=== PATIENT | female | born 1960 | race Caucasian/White ===

== ENCOUNTER 2017-10-05 03:47 | Emergency (ER) | payer MEDICAID, SELFPAY ==
[2017-10-05 03:48] VITALS: BP 181/89; PULSE 96; RESP 20; TEMP 36.7; O2SAT 98; BMI 97.6
--- NOTE | 2017-10-05 04:06 | XR_ITS ---
XR chest 2V HISTORY: Worsening chest pain ITS.REASON: chest pain ORDERING PHYSICIAN: Elroy Phan MD PATIENT AGE: 57 years COMPARISON: 04/16/2017 FINDINGS: The heart size is normal. Increased markings noted in the perihilar region bilaterally and left lower lobe and right upper lobe and may be due to bronchopneumonia. No obvious effusion. IMPRESSION: Bronchopneumonia
--- NOTE | 2017-10-05 04:13 | PC.NURSE ---
pt. to radiology
[2017-10-05 04:22] LABS: Basophils % 0.3 % (0.1-2.0); Eosinophils # 0.3 K/mm3 (0.0-0.4); Eosinophils % 2.4 % (0.1-12.0); Hematocrit 41.8 % (37.0-47.0); Hemoglobin 12.9 g/dL (12.2-16.2); Lymphocytes # 5.6 K/mm3 (0.7-4.5); Lymphocytes % 42.2 K/mm3 (10-50); Mean Corpuscular HGB Conc 30.9 g/dL (31.8-35.4); Mean Corpuscular Hemoglobin 27.6 pg (27.0-31.2); Mean Corpuscular Volume 89.1 fl (81-99); Mean Platelet Volume 7.4 fl (7.4-10.4); Monocytes # 0.6 K/mm3 (0.1-1.0); Monocytes % 4.5 % (1.7-9.3); Neutrophils # 6.8 K/mm3 (1.8-7.8); Neutrophils % 50.6 % (37.0-80.0); Platelet Count 374 K/mm3 (142-424); Red Blood Count 4.69 M/mm3 (4.20-5.40); Red Cell Distribution Width 13.1 % (11.5-17.5); White Blood Count 13.4 K/mm3 (4.8-10.8)
--- NOTE | 2017-10-05 04:22 | PC.NURSE ---
PT RETURNED FROM RADIOLOGY
--- NOTE | 2017-10-05 04:33 | HMH.EDSOB ---
ED Disposition Clinical Impression: CAP (community acquired pneumonia) Qualifiers: Laterality: left Lung location: unspecified part of lung Qualified Code(s): J18.9 - Pneumonia, unspecified organism Disposition: Home, Self-Care Condition on Discharge: Good Instructions: Pneumonia-Adult Additional Instructions: use meds and call pcp in am Prescriptions: Azithromycin [Zithromax 250mg tab] 250 mg PO DIRECTED #6 tab - Critical Care Critical Care Time: No Attestation: On 10/05/17, the high probability of a clinically significant, sudden or life threatening deterioration of the following system(s) required my full and direct attention, intervention and personal management. The time I documented below is in addition to time spent performing reported procedures but includes the following listed in this critical care notation. Medical Decision Making - Medical Records Medical records reviewed: Yes: I reviewed the patient's medical records. Vital Signs: 10/05/17 03:48 10/05/17 04:38 10/05/17 07:30 Temperature 98.1 F Temperature Source Oral Pulse Rate [Right Radial] 96 H 82 87 Respiratory Rate 20 18 22 Blood Pressure [Right Arm] 181/89 168/74 179/91 Blood Pressure Mean [Right Arm] 119 105 120 Blood Pressure Source [Right Arm] Automatic Cuff Blood Pressure Position [Right Arm] Sitting Sitting Sitting 02 Sat by Pulse Oximetry 98 94 L 96 Oxygen Delivery Method Room Air Room Air Room Air - Lab Data Lab results reviewed: Yes: I reviewed the patient's lab results. Lab Results 10/05/17 04:10: WBC 13.4 H, RBC 4.69, Hgb 12.9, Hct 41.8, MCV 89.1, MCH 27.6, MCHC 30.9 L, RDW 13.1, Plt Count 374, MPV 7.4, Neut % (Auto) 50.6, Lymph % (Auto) 42.2, [place] % (Auto) 4.5, Eos % (Auto) 2.4, Baso % (Auto) 0.3, Neut # (Auto) 6.8, Lymph # (Auto) 5.6 H, [place] # (Auto) 0.6, Eos # (Auto) 0.3, Baso # (Auto) 0.0 10/05/17 04:10: Sodium 135 L, Potassium 3.7, Chloride 102, Carbon Dioxide 30, Anion Gap 6.7, BUN 12, Creatinine 0.57, Estimated Creat Clear 88, Estimated GFR 109, Est GFR ( Amer) 131, Glucose 226 H, Calcium 8.4 L, Total Bilirubin 0.2, AST 14 L, ALT 27, Alkaline Phosphatase 70, Total Creatine Kinase 90, CK-MB (CK-2) 0.8, CK-MB (CK-2) Rel Index 0.9, Troponin I < 0.02, Total Protein 6.9, Albumin 2.5 L, Globulin 4.4 H, Albumin/Globulin Ratio 0.6 L 10/05/17 04:10: Lactic Acid 1.1 10/05/17 04:10: D-Dimer 3300 H* Result diagrams: 10/05/17 04:10 10/05/17 04:10 Orders (Tests/Meds): ED MEDICATIONS Discontinued Medications Generic Name Dose Route Start Last Admin Trade Name Saeedq PRN Reason Stop Dose Admin Aspirin 162 mg 10/05/17 09:00 Aspirin 81mg Enteric Coated Tablet PO 11/04/17 08:59 DAILY FUENTES Aspirin 162 mg 10/05/17 04:18 10/05/17 04:21 Aspirin 81mg Chewable Tablet PO 10/05/17 04:19 162 mg ONCE ONE Administration Furosemide 20 mg 10/05/17 07:11 10/05/17 07:16 Lasix 40mg/4ml Vial IV 10/05/17 07:12 20 mg ONCE ONE Administration Azithromycin 500 mg/ Sodium 250 mls @ 250 mls/hr 10/05/17 07:39 10/05/17 07:54 Chloride IV 10/05/17 07:40 250 mls/hr ONCE ONE Administration Protocol Ceftriaxone Sodium 1 gm/ 50 mls @ 100 mls/hr 10/05/17 07:42 10/05/17 08:15 Sodium Chloride IV 10/05/17 08:11 100 mls/hr ONCE ONE Administration Iopamidol 75 ml 10/05/17 06:36 10/05/17 07:41 [id number]; 75ml Vial IV 10/05/17 06:37 75 ml ONCE ONE Administration Ketorolac Tromethamine 30 mg 10/05/17 07:19 10/05/17 07:25 Toradol 30mg/Ml Vial IV 10/05/17 07:20 30 mg ONCE ONE Administration Methylprednisolone Sodium Succinate 125 mg 10/05/17 07:42 10/05/17 07:54 Solu-Medrol 125mg/2ml Vial IV 10/05/17 07:43 125 mg ONCE ONE Administration Sodium Chloride 10 ml 10/05/17 06:36 10/05/17 07:41 Rad-Saline Flush 10ml Syringe IV 10/05/17 06:37 10 ml ONCE ONE Administration Sodium Chloride 20 ml 10/05/17 06:36 10/05/17 07:40 Ra
--- NOTE | 2017-10-05 04:36 | ED_ITS ---
ED Disposition Clinical Impression: CAP (community acquired pneumonia) Qualifiers: Laterality: left Lung location: unspecified part of lung Qualified Code(s): J18.9 - Pneumonia, unspecified organism Disposition: Home, Self-Care Condition on Discharge: Good Instructions: Pneumonia-Adult Additional Instructions: use meds and call pcp in am Prescriptions: Azithromycin [Zithromax 250mg tab] 250 mg PO DIRECTED #6 tab - Critical Care Critical Care Time: No Attestation: On 10/05/17, the high probability of a clinically significant, sudden or life threatening deterioration of the following system(s) required my full and direct attention, intervention and personal management. The time I documented below is in addition to time spent performing reported procedures but includes the following listed in this critical care notation. Medical Decision Making - Medical Records Medical records reviewed: Yes: I reviewed the patient's medical records. Vital Signs: 10/05/17 03:48 10/05/17 04:38 10/05/17 07:30 Temperature 98.1 F Temperature Source Oral Pulse Rate [Right Radial] 96 H 82 87 Respiratory Rate 20 18 22 Blood Pressure [Right Arm] 181/89 168/74 179/91 Blood Pressure Mean [Right Arm] 119 105 120 Blood Pressure Source [Right Arm] Automatic Cuff Blood Pressure Position [Right Arm] Sitting Sitting Sitting 02 Sat by Pulse Oximetry 98 94 L 96 Oxygen Delivery Method Room Air Room Air Room Air - Lab Data Lab results reviewed: Yes: I reviewed the patient's lab results. Lab Results 10/05/17 04:10: WBC 13.4 H, RBC 4.69, Hgb 12.9, Hct 41.8, MCV 89.1, MCH 27.6, MCHC 30.9 L, RDW 13.1, Plt Count 374, MPV 7.4, Neut % (Auto) 50.6, Lymph % (Auto ) 42.2, [place] % (Auto) 4.5, Eos % (Auto) 2.4, Baso % (Auto) 0.3, Neut # (Auto) 6.8, Lymph # (Auto) 5.6 H, [place] # (Auto) 0.6, Eos # (Auto) 0.3, Baso # (Auto) 0.0 10/05/17 04:10: Sodium 135 L, Potassium 3.7, Chloride 102, Carbon Dioxide 30, Anion Gap 6.7, BUN 12, Creatinine 0.57, Estimated Creat Clear 88, Estimated GFR 109, Est GFR ( Amer) 131, Glucose 226 H, Calcium 8.4 L, Total Bilirubin 0.2, AST 14 L, ALT 27, Alkaline Phosphatase 70, Total Creatine Kinase 90, CK-MB (CK-2) 0.8, CK-MB (CK-2) Rel Index 0.9, Troponin I < 0.02, Total Protein 6.9, Albumin 2.5 L, Globulin 4.4 H, Albumin/Globulin Ratio 0.6 L 10/05/17 04:10: Lactic Acid 1.1 10/05/17 04:10: D-Dimer 3300 H* Result diagrams: 10/05/17 04:10 10/05/17 04:10 Orders (Tests/Meds): ED MEDICATIONS Discontinued Medications Generic Name Dose Route Start Last Admin Trade Name Saeedq PRN Reason Stop Dose Admin Aspirin 162 mg 10/05/17 09:00 Aspirin 81mg Enteric Coated Tablet PO 11/04/17 08:59 DAILY FUENTES Aspirin 162 mg 10/05/17 04:18 10/05/17 04:21 Aspirin 81mg Chewable Tablet PO 10/05/17 04:19 162 mg ONCE ONE Administration Furosemide 20 mg 10/05/17 07:11 10/05/17 07:16 Lasix 40mg/4ml Vial IV 10/05/17 07:12 20 mg ONCE ONE Administration Azithromycin 500 mg/ Sodium 250 mls @ 250 mls/hr 10/05/17 07:39 10/05/17 07: 54 Chloride IV 10/05/17 07:40 250 mls/hr ONCE ONE Administration Protocol Ceftriaxone Sodium 1 gm/ 50 mls @ 100 mls/hr 10/05/17 07:42 10/05/17 08:15 Sodium Chloride IV 10/05/17 08:11 100 mls/hr ONCE ONE Administration Iopamidol 75 ml
[2017-10-05 04:38] VITALS: BP 168/74; PULSE 82; RESP 18; O2SAT 94
[2017-10-05 04:38] LABS: Lactic Acid 1.1 mmol/L (0.4-2.0)
[2017-10-05 04:55] LABS: Alanine Aminotransferase 27 U/L (12-78); Albumin Level 2.5 gm/dL (3.4-5.0); Albumin/Globulin Ratio 0.6 (1.1-1.8); Alkaline Phosphatase 70 U/L (46-116); Anion Gap 6.7 mEq/L (5-15); Aspartate Amino Transferase 14 U/L (15-37); Bilirubin,Total 0.2 mg/dL (0.2-1.0); Blood Urea Nitrogen 12 mg/dL (7-18); CKMB Relative Index 0.9 U/L (0-4.0); Calcium 8.4 mg/dL (8.5-10.1); Carbon Dioxide 30 mmol/L (21.0-32.0); Chloride 102 mmol/L (98-107); Creatine Kinase 90 U/L (26-192); Creatine Kinase MB 0.8 mg/ml (0.0-3.6); Creatinine Clearance Estimated 88 mL/min (0-300); Creatinine,Serum 0.57 mg/dL (0.55-1.02); Estimated Glomerular Filt Rate 109 ml/min (>60); GFR (African American) 131 ML/MIN (>60); Globulin 4.4 gm/dl (1.3-3.2); Glucose 226 mg/dL (74-106); Potassium 3.7 mmoL/L (3.5-5.1); Sodium 135 mmol/L (136-145); Total Protein,Serum 6.9 gm/dL (6.4-8.2); Troponin I < 0.02 ng/ml (0.00-0.06)
[2017-10-05 04:58] LABS: D-Dimer 3300 (0-400)
--- NOTE | 2017-10-05 05:15 | CT_ITS ---
CT angio chest CTA chest Ordering Physician: Elroy Phan MD Patient Age: 57 years: Female HISTORY: ITS.REASON: CHEST PAIN, SOB, ELEVATED D-DIMER TECHNIQUE: Helical CT scanning performed the chest following bolus administration 70 cc [id number] followed x 40 mL normal saline. Thickened axial images as well as slab mippSagittal and coronal performed on independent workstation (CTA CPT or... 77 CPT) COMPARISON :Previous CTA chest 05/04/2016. Previous CT chest October 2015 also CTA chest April 2015 FINDINGS . No good evidence of pulmonary embolism. Fairly good enhancement and visualization of pulmonary arteries. Aorta appears normal in caliber with no acute findings scant foci calcification. No right ventricular strain. The heart appears upper normal in size no pericardial effusion Lungs: Bilateral diffuse infiltrates with Peribronchial thickening throughout. The Patchy bilateral infiltrates most evident towards lung bases left greater than right. Bilateral interstitial thickening associated which I tend to suspect reflects pneumonitis, although VRC of favored of mild pulmonary edema. Clinical correlation required.. Mediastinum subtle small reactive nodes slightly more evident hilar regions today. Stable slightly more evident mild/moderate reactive nodes throughout the mediastinum.... Stable mild /moderate nodes axillary region Small to moderate mediastinal lymph nodes again observed and appear fairly stable. Stable elongated lymph node AP window seen along the superior margin pulmonary artery level and just lateral to the aortic arch. Scattered small right paratracheal nodes with largest 13 x 11 mm. This may be incrementally larger likely reflect mild reactive lymph node features. A few very small retrocrural nodes similar to previous study..upper normal thickness esophagus. Lluvia. Hilar regions appears slightly more generous which may reflect some question reactive nodes along with some inflammatory changes. Scattered small- moderate-sized nodes in the axillary regions similar to previous studies Uppermost abdomen. Adrenals normal. Thyroid gland is upper normal size. No supraclavicular adenopathy. . No pleural effusions evident no chest wall abnormalities. T-spine intact. . . IMPRESSION: ----- 1. No evidence of pulmonary embolism. 2. Diffuse Bilateral infiltrates. Most evident atelectasis & infiltrate towards LLL.. Associated peribronchial thickening throughout. Mild diffuse Interstitial thickening I favor reflects diffuse pneumonitis, although could reflect mild pulmonary edema as suggested by VRC;. May benefit correlation with BNP. Heart normal size. No pleural effusion No pathologic adenopathy. Subtle incremental accentuation of hilar and mediastinal nodes, likely reflecting reactive nodes . 3. Recommend follow-up 2 view chest to serve as baseline for follow-up.
[2017-10-05 07:30] VITALS: BP 179/91; PULSE 87; RESP 22; O2SAT 96
[2017-10-05 09:12] VITALS: BP 136/78; PULSE 70; RESP 20; O2SAT 98
== END 2017-10-05 09:14 | disposition home or self-care (01) ==
PROVIDERS: Emergency Provider Emergency Medicine; Family Provider Internal Medicine Adolescent Medicine
DX: J18.9 Pneumonia, unspecified organism (principal); E11.9 Type 2 diabetes mellitus without complications; Z79.84 Long term (current) use of oral hypoglycemic drugs; Z87.891 Personal history of nicotine dependence; E78.5 Hyperlipidemia, unspecified; I10 Essential (primary) hypertension; Z88.0 Allergy status to penicillin; Z88.2 Allergy status to sulfonamides
CPT/HCPCS: 71046; 71275; 80053; 82550; 82553; 83605; 84484; 85025; 85378; 87040; 93005; 93041; 96365; 96366; 96375; 99284; J0456; Q9967

== ENCOUNTER → 2018-02-10 08:50 | Outpatient (CLI) | payer MEDICAID, SELFPAY ==
--- NOTE | 2018-02-10 08:57 | FL_ITS ---
EXAM: Barium swallow/esophagram. INDICATION: ITS.REASON: DYSPNEA,HICCUPS ORDERING PHYSICIAN: Eben Liu MD PATIENT AGE: 57 years COMPARISON: None TECHNIQUE: In the upright position the patient was observed to swallow barium in both the AP and lateral view. The cervical esophagus was examined under fluoroscopy with images obtained. The patient was then placed prone in the right anterior oblique position and was observed to swallow barium with Valsalva technique . FLUOROSCOPY TIME: 1 minute and 4 seconds FINDINGS: There was no evidence of aspiration. There was normal peristalsis. No filling defects or mucosal abnormalities. No masses or strictures. There was a small sliding hiatal hernia with Valsalva IMPRESSION: Small sliding hiatal hernia with Valsalva otherwise negative
== END ==
PROVIDERS: Family Provider Internal Medicine Adolescent Medicine; PCP Internal Medicine Adolescent Medicine; Visit Provider Internal Medicine Adolescent Medicine
DX: R06.00 Dyspnea, unspecified (principal); R06.6 Hiccough
CPT/HCPCS: 74220; 74247

== ENCOUNTER → 2018-02-12 09:28 | Outpatient (CLI) | payer MEDICAID, SELFPAY ==
--- NOTE | 2018-02-12 09:50 | XR_ITS ---
Repeat View XR HISTORY: Dyspnea, hiccups ORDERING PHYSICIAN: Eben Liu MD PATIENT AGE: 57 years Comparison: None FINDINGS: The esophagus, stomach, and duodenum have an unremarkable appearance. Small sliding hiatal hernia with Valsalva. No ulcer or mass evident. No mucosal abnormalities apparent. There is normal peristalsis. The duodenal C-loop is nondisplaced. FLUOROSCOPY TIME : 1 minute and 18 seconds. IMPRESSION: Small sliding hiatal hernia with Valsalva otherwise negative upper GI
== END ==
PROVIDERS: Family Provider Internal Medicine Adolescent Medicine; PCP Internal Medicine Adolescent Medicine; Visit Provider Internal Medicine Adolescent Medicine
DX: R13.10 Dysphagia, unspecified (principal)

== ENCOUNTER → 2018-03-10 13:03 | Outpatient (POV) | payer MEDICAID, SELFPAY | PROVIDERS: Family Provider Internal Medicine Adolescent Medicine; PCP Internal Medicine Adolescent Medicine; Visit Provider Internal Medicine | DX: Z00.00 Encounter for general adult medical examination without abnormal findings (principal) ==

== ENCOUNTER → 2018-05-06 12:17 | Outpatient (CLI) | payer MEDICAID, SELFPAY ==
--- NOTE | 2018-05-06 12:26 | CT_ITS ---
CT chest wo con HISTORY: Shortness of air, interstitial lung disease ITS.REASON: INTERSTITIAL LUNG DISEASE ORDERING PHYSICIAN: Kwame Martini MD PATIENT AGE: 57 years COMPARISON: None Technique: Axial images obtained with sagittal and coronal reformats. All CT scans at the facility use one or more dose reduction, viz: automated exposure control, ma/kV adjustment per patient size (including targeted exams where dose is matched to indication, i.e. head), or iterative reconstruction technique. FINDINGS: Scattered small nodes are present in the axilla. A stable aortopulmonic lymph node is present measuring 1.9 x 0.8 cm. No mediastinal or hilar mass or adenopathy is more heart size. There are several noncalcified nodules in the upper lobes not significantly changed 5 mm or less. There is mild diffuse prominence of the interstitium with scattered groundglass opacification consistent with interstitial lung disease. No new nodules are apparent. The findings appear stable compared to the previous exam. No effusions. A 6 mm fissural nodule is present in the right minor fissure. No central obstructing lesions are evident. No acute bony anomalies. Upper abdominal images show no acute finding. IMPRESSION: 1. Overall stable appearance in the mild diffuse prominence of the interstitium with patchy groundglass densities suggesting interstitial pneumonitis/interstitial lung disease etiology indeterminate 2. Small nodular opacities are present in the upper lobes which appear stable. Continued follow-up recommended
[2018-05-06 13:40] VITALS: PULSE 87; PULSE 90
[2018-05-06 14:00] VITALS: BP 145/90; BP 160/100; PULSE 119; PULSE 87; RESP 16; RESP 23; O2SAT 90; O2SAT 97
== END ==
PROVIDERS: Family Provider Internal Medicine Adolescent Medicine; PCP Internal Medicine Adolescent Medicine; Visit Provider Internal Medicine
DX: J84.9 Interstitial pulmonary disease, unspecified (principal)
CPT/HCPCS: 71250; 94060; 94618; 94640; 94726; 94729

== ENCOUNTER → 2018-06-02 08:29 | Outpatient (POV) | payer MEDICAID, SELFPAY | PROVIDERS: Family Provider Internal Medicine Adolescent Medicine; PCP Internal Medicine Adolescent Medicine; Visit Provider Internal Medicine | DX: Z00.00 Encounter for general adult medical examination without abnormal findings (principal) ==

== ENCOUNTER → 2018-06-04 09:59 | Outpatient (CLI) | payer MEDICAID, SELFPAY ==
--- NOTE | 2018-06-04 10:05 | CA_ITS ---
PROCEDURE: 2-D M-mode and color Doppler study INDICATIONS FOR THE TEST: Chest painx COPDx Heart Murmurx Tobacco Smoking Palpitationsx Fatigue Syncopex Edema HypertensionxDiabetes Mellitusx Rheumatic Fever SOBxDOE Obesity Hyperlipidemia Family History HD Additional History Rheumatoid Arthritis Comments: Mild , calcified aortic valve PATIENT INFORMATION HEIGHT: 5'3'' WEIGHT: 240 GENDER: Female B/P: 148/71 2-D/M-MODE INTERPRETATION: 2-D MEASUREMENTS OBSERVED VALUES IN CMS Right Ventricular Dimension (RVDd) 2.4 Interventricular Septum (Thickness)(IVsd) 0.9 Left Ventricular Internal Dimensions(LVIDd) 4.5 Left Ventricular Posterior Wall (Thickness)(LVPWd) 1.1 Aortic Root 2.3 Aortic Cusp Separation 1.8 Left Atrial Dimensions (LAD) 4.1 2D 1. Left atrium is mildly enlarged, left ventricle is normal size, mild concentric left ventricular hypertrophy, visually estimated ejection fraction 55% with no regional wall motion abnormality. 2. The right atrium and right ventricle are normal size and contractility. 3. The aortic valve is thickened and calcified leaflet continue to display mobility. 4. The mitral and tricuspid valve are grossly normal. 5. The pulmonic valve is poorly visualized. 6. No significant pericardial effusion noted. DOPPLER INTERROGATION: 1. The mean gradient across aortic valve is 9 mmHg this represents mild aortic stenosis, there is no aortic insufficiency. 2. The mitral inflow velocity within normal range, there is no mitral stenosis, there is mild mitral regurgitation, grade 1 diastolic dysfunction seen with tissue Doppler evidence of raised left atrial pressure. 3. Mild tricuspid regurgitation, tricuspid regurgitation jet velocity is insufficient for calculation of the right ventricular systolic pressure. CONCLUSION: 1. Mildly enlarged left atrium, normal left ventricular size, mild concentric left ventricular hypertrophy, visually estimated ejection fraction 55% with no regional wall motion abnormality, grade 1 diastolic dysfunction seen with tissue Doppler evidence of raised left atrial pressure. 2. Thickened and calcified aortic valve with mean gradient across valve of 9 mmHg represents mild aortic stenosis, there is no aortic insufficiency. 3. Mild mitral and tricuspid regurgitation 4. No significant pericardial effusion noted.
== END ==
PROVIDERS: PCP Internal Medicine Adolescent Medicine; Visit Provider Internal Medicine
DX: M06.9 Rheumatoid arthritis, unspecified (principal); J84.9 Interstitial pulmonary disease, unspecified; I35.1 Nonrheumatic aortic (valve) insufficiency
CPT/HCPCS: 93306

== ENCOUNTER → 2018-07-16 14:25 | Outpatient (CLI) | payer MEDICAID, SELFPAY ==
[2018-07-16 14:59] LABS: Basophils # 0.1 K/mm3 (0-0.2); Basophils % 0.4 % (0.1-2.0); Eosinophils # 0.3 K/mm3 (0.0-0.4); Eosinophils % 2.1 % (0.1-12.0); Hematocrit 39.3 % (37.0-47.0); Hemoglobin 12.4 g/dL (12.2-16.2); Lymphocytes # 5.9 K/mm3 (0.7-4.5); Lymphocytes % 41.5 % (10-50); Mean Corpuscular HGB Conc 31.5 g/dL (31.8-35.4); Mean Corpuscular Hemoglobin 28.3 pg (27.0-31.2); Mean Corpuscular Volume 89.8 fl (81-99); Mean Platelet Volume 7.2 fl (7.4-10.4); Monocytes # 0.6 K/mm3 (0.1-1.0); Monocytes % 4.5 % (1.7-9.3); Neutrophils # 7.3 K/mm3 (1.8-7.8); Neutrophils % 51.5 % (37.0-80.0); Platelet Count 368 K/mm3 (142-424); Red Blood Count 4.38 M/mm3 (4.20-5.40); Red Cell Distribution Width 13.2 % (11.5-17.5); White Blood Count 14.2 K/mm3 (4.8-10.8)
[2018-07-16 16:17] LABS: Alanine Aminotransferase 22 U/L (12-78); Albumin Level 2.7 gm/dL (3.4-5.0); Albumin/Globulin Ratio 0.7 (1.1-1.8); Alkaline Phosphatase 86 U/L (46-116); Anion Gap 13.7 mEq/L (5-15); Aspartate Amino Transferase 15 U/L (15-37); Bilirubin,Total 0.3 mg/dL (0.2-1.0); Blood Urea Nitrogen 17 mg/dL (7-18); Calcium 8.8 mg/dL (8.5-10.1); Carbon Dioxide 26 mmol/L (21.0-32.0); Chloride 104 mmol/L (98-107); Estimated Glomerular Filt Rate 102 ml/min (>60); GFR (African American) 124 ML/MIN (>60); Glucose 123 mg/dL (74-106); Potassium 3.7 mmoL/L (3.5-5.1); Sodium 140 mmol/L (136-145); Total Protein,Serum 6.7 gm/dL (6.4-8.2)
== END ==
PROVIDERS: Visit Provider Internal Medicine
DX: Z51.81 Encounter for therapeutic drug level monitoring (principal)
CPT/HCPCS: 36415; 80053; 85025

== ENCOUNTER → 2018-08-04 10:02 | Outpatient (POV) | payer MEDICAID, SELFPAY | PROVIDERS: Visit Provider Internal Medicine | DX: Z00.00 Encounter for general adult medical examination without abnormal findings (principal) ==

== ENCOUNTER → 2018-08-19 16:37 | Outpatient (CLI) | payer MEDICAID, SELFPAY ==
[2018-08-19 17:15] LABS: Basophils % 0.3 % (0.1-2.0); Eosinophils # 0.2 K/mm3 (0.0-0.4); Eosinophils % 1.6 % (0.1-12.0); Hematocrit 40.7 % (37.0-47.0); Hemoglobin 12.6 g/dL (12.2-16.2); Lymphocytes # 5.3 K/mm3 (0.7-4.5); Lymphocytes % 41.3 % (10-50); Mean Corpuscular HGB Conc 30.9 g/dL (31.8-35.4); Mean Corpuscular Hemoglobin 27.5 pg (27.0-31.2); Mean Platelet Volume 7.6 fl (7.4-10.4); Monocytes # 0.5 K/mm3 (0.1-1.0); Monocytes % 3.5 % (1.7-9.3); Neutrophils # 6.9 K/mm3 (1.8-7.8); Neutrophils % 53.3 % (37.0-80.0); Platelet Count 382 K/mm3 (142-424); Red Blood Count 4.57 M/mm3 (4.20-5.40); Red Cell Distribution Width 13.5 % (11.5-17.5); White Blood Count 12.9 K/mm3 (4.8-10.8)
[2018-08-19 19:25] LABS: Alanine Aminotransferase 21 U/L (12-78); Albumin Level 2.6 gm/dL (3.4-5.0); Albumin/Globulin Ratio 0.6 (1.1-1.8); Alkaline Phosphatase 92 U/L (46-116); Anion Gap 11.2 mEq/L (5-15); Aspartate Amino Transferase 9 U/L (15-37); Bilirubin,Total 0.2 mg/dL (0.2-1.0); Blood Urea Nitrogen 18 mg/dL (7-18); Calcium 8.7 mg/dL (8.5-10.1); Carbon Dioxide 28 mmol/L (21.0-32.0); Chloride 105 mmol/L (98-107); Creatinine,Serum 0.75 mg/dL (0.55-1.02); Estimated Glomerular Filt Rate 79 ml/min (>60); GFR (African American) 96 ML/MIN (>60); Globulin 4.1 gm/dl (1.3-3.2); Glucose 136 mg/dL (74-106); Potassium 4.2 mmoL/L (3.5-5.1); Sodium 140 mmol/L (136-145); Total Protein,Serum 6.7 gm/dL (6.4-8.2)
== END ==
PROVIDERS: Visit Provider Internal Medicine Adolescent Medicine
DX: M05.79 Rheumatoid arthritis with rheumatoid factor of multiple sites without organ or systems involvement (principal); S06.0X1D Concussion with loss of consciousness of 30 minutes or less, subsequent encounter
CPT/HCPCS: 36415; 80053; 85025

== ENCOUNTER → 2019-04-20 09:57 | Outpatient (POV) | payer MEDICAID, SELFPAY | PROVIDERS: Visit Provider Internal Medicine | DX: Z00.00 Encounter for general adult medical examination without abnormal findings (principal) ==

== ENCOUNTER → 2019-08-09 13:25 | Outpatient (CLI) | payer OTHER, SELFPAY ==
--- NOTE | 2019-08-09 13:37 | XR_ITS ---
PROCEDURE: XR CHEST 2V CLINICAL HISTORY: LUNG DISEASE Interstitial lung disease, shortness of air, possible pneumonia COMPARISON: CXR2V XR chest 2V from 01/26/2018 [id number] XR ribs LT min 3V w CXR1V from 03/07/[address] chest wo con from 05/06/2018 CXR2 XR chest AP from 08/16/2018 Chest from 03/18/2019 FINDINGS: Mild cardiomegaly without failure. Chronic bilateral opacification once again noted consistent with patient's known interstitial lung disease. No new areas of consolidation are evident. Degenerative changes of the shoulders IMPRESSION: Cardiomegaly with chronic changes which appears similar when compared to 03/18/2019. Superimposed pneumonia could easily be obscured from the chronic changes. CT may provide further evaluation if clinically warranted Dictated by: Ron Edmondson MD 08/09/2019 17:34 Electronically signed by Ron Edmondson MD in [place] 08/09/2019 17:34
== END ==
PROVIDERS: PCP Internal Medicine Adolescent Medicine; Visit Provider Internal Medicine Adolescent Medicine
DX: J84.9 Interstitial pulmonary disease, unspecified (principal)
CPT/HCPCS: 71046

== ENCOUNTER 2019-10-29 10:55 | Inpatient (IN) ==
--- NOTE | 2019-10-29 11:39 | Pharmacy Consult Notes ---
[facility] VTE Monitoring - Patient Demographics Admission date: 10/29/19 Report Date: 10/29/19 Time: 11:39 Allergies/Adverse Reactions: Patient Allergies leflunomide [From ARAVA] Allergy (Severe, Verified 05/29/18 13:24) I-RASH Penicillins [PENICILLINS] Allergy (Intermediate, Verified 05/29/18 13:24) Sulfa (Sulfonamide Antibiotics) [SULFA (SULFONAMIDE ANTIBIOTICS)] Allergy (Unknown, Verified 05/29/18 13:24) Height: 1.57 m Weight: 105.8 kg - Prophylaxis VTE Prophylaxis Ordered?: Yes Types of VTE Prophylaxis: TEDS Knee High Location of Applied Device: Bilateral Lower Extremeties
[2019-10-29 12:51] LABS: Basophils # 0.1 K/mm3 (0-0.2); Basophils % 0.4 % (0.1-2.0); Eosinophils # 0.2 K/mm3 (0.0-0.4); Eosinophils % 0.9 % (0.1-12.0); Hematocrit 36.1 % (37.0-47.0); Hemoglobin 10.8 g/dL (12.2-16.2); Lymphocytes # 4.2 K/mm3 (0.7-4.5); Lymphocytes % 22.3 % (10-50); Mean Corpuscular HGB Conc 29.9 g/dL (31.8-35.4); Mean Corpuscular Volume 88.4 fl (81-99); Mean Platelet Volume 7.8 fl (7.4-10.4); Neutrophils # 13.6 K/mm3 (1.8-7.8); Neutrophils % 71.4 % (37.0-80.0); Platelet Count 452 K/mm3 (142-424); Red Blood Count 4.09 M/mm3 (4.20-5.40); Red Cell Distribution Width 14.6 % (11.5-17.5)
[2019-10-29 12:55] LABS: Albumin Level 3.4 g/dl (3.5-5.0); Albumin/Globulin Ratio 0.9 (1.1-1.8); Anion Gap 9.1 mEq/L (5-15); Bilirubin,Total 0.4 mg/dl (0.2-1.3); Globulin 3.9 g/dL (1.3-3.2); Total Protein,Serum 7.3 g/dl (6.3-8.2)
[2019-10-29 15:35] LABS: Eosinophils % 1 % (0-3); Hypochromasia 1+; Lymphocytes % 28 % (10-50); Monocytes % 7 % (2-9); Neutrophils % 64 % (42-76); Stomatocytes 1+; Total Cells Counted 100
--- NOTE | 2019-10-30 06:01 | History & Physical Report ---
*Admission Date: 10/29/19 *Chief complaint: Cough and SOA *History of present illness: 59 year old Female with history of intersitial lung disease, RA and DM - came to office with SOA and low sats at PT department today... came to office - was recommended to go to ER, but chose to come to office. Found to have cough, low sats, and crackles on lungs. Admitted to [facility] for further diagnosis. [facility] History I have reviewed the patient's past medical history: Yes Medical History: Reports:: Asthma, Diabetes Mellitus Type 2, Hypertension Denies:: Cancer, Diabetes Mellitus Type 1, MRSA *Have you ever received a pneumonia vaccine?: Yes *Have you received a flu vaccine this season?: Yes Other Medical History: Reports: Arthritis, Other (RA) Other Surgeries: Yes: Appendectomy, Hysterectomy-Total, Tubal Ligation Amputation: No Fractures: No - *Social History Educational Level: Completed High School Smoking Status: Never smoker Tobacco Type: cigarettes Alcohol Intake: never *Occupational Status:: retired Housing: house Household Members: spouse *Travel in the last 8 weeks: None Family Hx:: Cancer, Hypertension, Kidney Disease Review of Systems - Review of Systems Review of systems:: pertinent systems reviewed and negative unless documented below - *Cardiovascular Reports shortness of breath with activity, Reports leg swelling - *Respiratory Reports change in phlegm color, Reports shortness of breath with activity, Reports excessive phlegm production Meds Home Medications Medication Instructions Recorded Confirmed Type Glimepiride [Amaryl] 2 mg PO BID 10/05/17 10/29/19 History Metformin HCl [Glucophage 500mg 1,000 mg PO BID 10/05/17 10/29/19 History Tablet] Metoprolol Tartrate [Lopressor 25 mg PO BID 10/05/17 10/29/19 History 25mg tablet] Ibuprofen [Ibu] 800 mg PO TID PRN 01/26/18 10/29/19 History Albuterol Sulfate [Albuterol HFA 2 puffs IH Q6HP PRN #1 inh 03/18/19 10/29/19 Rx Inhaler] Inhaler, Assist Devices [Space 1 each MC Q6H PRN #1 spacer 03/18/19 10/29/19 Rx Chamber Plus] predniSONE [Deltasone 10mg tablet] 10 mg PO NEEDED PRN 03/18/19 10/29/19 History sulfaSALAzine [Sulfasalazine Dr] 3 tab PO BID 03/18/19 10/29/19 History Promethazine/Dextromethorphan 5 ml PO Q6HP PRN #240 syrup 09/07/19 10/29/19 Rx [Promethazine-Dm Syrup] Aspirin [Aspir 81] 81 mg PO DAILY 10/29/19 10/29/19 History Omeprazole [Omeprazole 20mg 20 mg PO DAILY 10/29/19 10/29/19 History Capsule] Tofacitinib Citrate [Xeljanz Xr] 11 mg PO DAILY 10/29/19 10/29/19 History Allergies Allergy/AdvReac Type Severity Reaction Status Date / Time leflunomide [From ARAVA] Allergy Severe I-RASH Verified 05/29/18 13:24 Penicillins [PENICILLINS] Allergy Intermediate Verified 05/29/18 13:24 Sulfa (Sulfonamide Allergy Unknown Verified 05/29/18 13:24 Antibiotics) [SULFA (SULFONAMIDE ANTIBIOTICS)] Exam Vital signs and Labs for Last 24 Hours: Temp Pulse Resp BP Pulse Ox 97.8 F 86 22 157/81 H 92 L 10/30/19 04:00 10/30/19 04:00 10/30/19 04:00 10/30/19 04:00 10/30/19 04:00 Laboratory Results - last 24 hr 10/29/19 12:00: Influenza Type A Ag Negative, Influenza Type B Ag Negative 10/29/19 12:35: WBC 19.0 H, RBC 4.09 L, Hgb 10.8 L, Hct 36.1 L, MCV 88.4, MCH 26.4 L, MCHC 29.9 L, RDW 14.6, Plt Count 452 H, MPV 7.8, Neut % (Auto) 71.4, Lymph % (Auto) 22.3, [place] % (Auto) 5.0, Eos % (Auto) 0.9, Baso % (Auto) 0.4, Neut # (Auto) 13.6 H, Lymph # (Auto) 4.2, [place] # (Auto) 1.0, Eos # (Auto) 0.2, Baso # (Auto) 0.1, Total Counted 100, Neutrophils % (Manual) 64, Lymphocytes % (Manual) 28, Monocytes % (Manual) 7, Eosinophils % (Manual) 1, Platelet Estimate Slight increase, Hypochromasia 1+, Poikilocytosis 1+, Stomatocytes 1+ 10/29/19 12:35: Sodium 134 L, Potassium 4.1, Chloride 97 L, Carbon Dioxide 32 H, Anion Gap 9.1, BUN 11, Creatinine 0.50 L, Estimated Creat Clear 47, Estimated GFR 125, Est GFR ( Amer) 152, Glucose 244 H, Calcium 9.0, Magnesium 1.3 L , Total Bilirubin 0.4, AST 19, ALT 17, Alkaline Phosphatase 97, Total Protein 7.3, Albumin 3.4 L, Globulin 3.9 H, Albumin/Globulin Ratio 0.9 L 10/29/19 12:35: Lactate 1.0 10/29/19 12:35: Mycoplasma pneumon IgM Reactive A 10/29/19 12:35: Troponin I < 0.01 10/29/19 17:40: Troponin I < 0.01 I & O for Last 24 hours: Intake & Output 10/27/19 10/28/19 10/29/19 10/30/19 11:59 11:59 11:59 11:59 Intake Total 460 / 460 Balance 460 / 460 Weight 233 lb 4 oz 236 lb 2 oz Microbiology Reports for the Last 24 Hours: Microbiology 10/29/19 12:00 Sputum - Expectorated Sputum Gram Stain - Final 10/29/19 12:00 Sputum - Expectorated Sputum Sputum Culture - Final - *Routine HEENT Exam Head: Present: normocephalic Eye: Present: EOMI, PERRL ENT: Present: mucous membranes moist - *Routine Neck Exam Present: supple. Absent: lymphadenopathy - *Routine Respiratory Exam Present: prolonged expiratory phase, rales, rhonchi - *Routine Cardiovascular Exam Present: RRR - *Routine Abdominal Exam Present: soft, normoactive bowel sounds. Absent: tenderness - *Routine Extremities Exam Absent: cyanosis, clubbing, edema - *Routine Skin Exam Present: warm. Absent: rash - *Routine Neurological Exam Present: alert, oriented X3 - Detailed Eye Exam Eyelids: Left normal inspection Assessment and Plan (1) CAP (community acquired pneumonia) Current visit: No Status: Acute Qualifiers: Laterality: left Lung location: unspecified part of lung Qualified Code(s): J18.9 - Pneumonia, unspecified organism Category: Medical Code(s): J18.9 - Pneumonia, unspecified organism admit to [facility]. Aggressive abx and pulmonary toilet. Hypoxia noted... O2 therapy initiated. (2) COPD (chronic obstructive pulmonary disease) Current visit: No Status: Acute Category: Medical Code(s): J44.9 - Chronic obstructive pulmonary disease, unspecified (3) Interstitial lung disease Current visit: No Status: Acute Category: Medical Code(s): J84.9 - Interstitial pulmonary disease, unspecified
[2019-10-30 07:21] LABS: Anion Gap 15.9 mEq/L (5-15)
[2019-10-30 07:22] LABS: Calcium 9.4 mg/dl (8.4-10.2)
[2019-10-30 07:32] LABS: Basophils % 0.1 % (0.1-2.0); Hematocrit 39.1 % (37.0-47.0); Lymphocytes # 2.3 K/mm3 (0.7-4.5); Lymphocytes % 12.3 % (10-50); Mean Corpuscular HGB Conc 30.7 g/dL (31.8-35.4); Mean Corpuscular Volume 89.4 fl (81-99); Mean Platelet Volume 8.6 fl (7.4-10.4); Monocytes # 0.5 K/mm3 (0.1-1.0); Monocytes % 2.7 % (1.7-9.3); Neutrophils # 16.1 K/mm3 (1.8-7.8); Neutrophils % 84.8 % (37.0-80.0); Platelet Count 563 K/mm3 (142-424); Red Blood Count 4.37 M/mm3 (4.20-5.40); Red Cell Distribution Width 13.4 % (11.5-17.5); White Blood Count 18.9 K/mm3 (4.8-10.8)
--- NOTE | 2019-10-30 08:23 | Progress Note ---
Internal Medicine - PN: Subj *Date: 10/30/19 *Time: 08:20 Interval history: Patient feels better this morning. Continues to have a cough and some shortness of air. Is very concerned about her glucose levels Exam Vital signs and Labs for Last 24 Hours: Temp Pulse Resp BP Pulse Ox 97.8 F 97 H 22 157/81 H 91 L 10/30/19 04:00 10/30/19 06:31 10/30/19 04:00 10/30/19 04:00 10/30/19 06:31 Laboratory Results - last 24 hr 10/29/19 12:00: Influenza Type A Ag Negative, Influenza Type B Ag Negative 10/29/19 12:35: WBC 19.0 H, RBC 4.09 L, Hgb 10.8 L, Hct 36.1 L, MCV 88.4, MCH 26.4 L, MCHC 29.9 L, RDW 14.6, Plt Count 452 H, MPV 7.8, Neut % (Auto) 71.4, Lymph % (Auto) 22.3, [place] % (Auto) 5.0, Eos % (Auto) 0.9, Baso % (Auto) 0.4, Neut # (Auto) 13.6 H, Lymph # (Auto) 4.2, [place] # (Auto) 1.0, Eos # (Auto) 0.2, Baso # (Auto) 0.1, Total Counted 100, Neutrophils % (Manual) 64, Lymphocytes % (Manual) 28, Monocytes % (Manual) 7, Eosinophils % (Manual) 1, Platelet Estimate Slight increase, Hypochromasia 1+, Poikilocytosis 1+, Stomatocytes 1+ 10/29/19 12:35: Sodium 134 L, Potassium 4.1, Chloride 97 L, Carbon Dioxide 32 H, Anion Gap 9.1, BUN 11, Creatinine 0.50 L, Estimated Creat Clear 47, Estimated GFR 125, Est GFR ( Amer) 152, Glucose 244 H, Calcium 9.0, Magnesium 1.3 L , Total Bilirubin 0.4, AST 19, ALT 17, Alkaline Phosphatase 97, Total Protein 7.3, Albumin 3.4 L, Globulin 3.9 H, Albumin/Globulin Ratio 0.9 L 10/29/19 12:35: Lactate 1.0 10/29/19 12:35: Mycoplasma pneumon IgM Reactive A 10/29/19 12:35: Troponin I < 0.01 10/29/19 17:40: Troponin I < 0.01 10/30/19 06:13: POC Glucose 343 H* 10/30/19 06:30: WBC 18.9 H, RBC 4.37, Hct 39.1, MCV 89.4, MCH 27.4, MCHC 30.7 L, RDW 13.4, Plt Count 563 H, MPV 8.6, Neut % (Auto) 84.8 H, Lymph % (Auto) 12.3, [place] % (Auto) 2.7, Eos % (Auto) 0.0 L, Baso % (Auto) 0.1, Neut # (Auto) 16.1 H, Lymph # (Auto) 2.3, [place] # (Auto) 0.5, Eos # (Auto) 0.0, Baso # (Auto) 0.0 10/30/19 06:30: Sodium 134 L, Potassium 3.9, Chloride 96 L, Carbon Dioxide 26, Anion Gap 15.9 H, BUN 16 D, Creatinine 0.50 L, Estimated Creat Clear 45, Estimated GFR 125, Est GFR ( Amer) 152, Glucose 381 H D, Calcium 9.4 I & O for Last 24 hours: Intake & Output 10/27/19 10/28/19 10/29/19 10/30/19 11:59 11:59 11:59 11:59 Intake Total 1309 / 1309 Output Total 300 / 300 Balance 1009 / 1009 Weight 233 lb 4 oz 236 lb 2 oz Microbiology Reports for the Last 24 Hours: Microbiology 10/29/19 12:00 Sputum - Expectorated Sputum Gram Stain - Final 10/29/19 12:00 Sputum - Expectorated Sputum Sputum Culture - Final Narrative: Patient is awake, oriented x3. Oropharynx clear, no JVD. Air movement is improving. Minimal rhonchi in both bases but less crackles than yesterday. Heart rate regular. Abdomen soft, No peripheral edema. Assessment and Plan (1) CAP (community acquired pneumonia) Current visit: No Status: Acute Qualifiers: Laterality: left Lung location: unspecified part of lung Qualified Code(s): J18.9 - Pneumonia, unspecified organism Category: Medical Code(s): J18.9 - Pneumonia, unspecified organism Positive mycoplasma titers. Remains on levofloxacin, white count reduced, clinically improving (2) COPD (chronic obstructive pulmonary disease) Current visit: No Status: Acute Category: Medical Code(s): J44.9 - Chronic obstructive pulmonary disease, unspecified (3) Interstitial lung disease Current visit: No Status: Acute Category: Medical Code(s): J84.9 - Interstitial pulmonary disease, unspecified Chest x-ray has some abnormalities but is scheduled for CT scan in November with Dr. Martini in [place]. No CT scan this admission given her upcoming scheduled procedure (4) Diabetes mellitus type 2, noninsulin dependent Current visit: Yes Status: Acute Category: Medical Code(s): E11.9 - Type 2 diabetes mellitus without complications Condition complicates her care. Reduce steroid dose today. Discussed with patient holding her p.o. medications and using sliding scale insulin while in hospital (5) Obesity Current visit: Yes Status: Chronic Qualifiers: Obesity type: unspecified obesity type Obesity classification: adult class 3 (BMI >= 40) Category: Medical Code(s): E66.9 - Obesity, unspecified Complicates all aspects of her care (6) Acute and chronic respiratory failure with hypoxia Current visit: Yes Status: Acute Category: Medical Code(s): J96.21 - Acute and chronic respiratory failure with hypoxia Somewhat improving. Patient may need to be discharged on oxygen
[2019-10-30 08:39] LABS: Lymphocytes % 12 % (10-50); Monocytes % 3 % (2-9); Myelocytes % 1 (0-1); Neutrophils % 84 % (42-76); Total Cells Counted 100
[2019-10-30 08:40] LABS: RBC Morphology Normal
--- NOTE | 2019-10-30 13:09 | Electrocardiograph Report ---
APPROVED REPORT Exam: Resting ECG HR:96 bpm ECG Measurements Heart Rate 96 AXES [place] 166 P 53 QRSd 80 QRS -5 QT 360 T53 QTc 454 <Conclusion> Normal sinus rhythm Possible Left atrial enlargement Left ventricular hypertrophy Abnormal ECG Electronically signed by : Eebn Liu, 10/30/2019 13:09:29
[2019-10-31 06:56] LABS: Basophils % 0.1 % (0.1-2.0); Eosinophils % 0.1 % (0.1-12.0); Hematocrit 34.6 % (37.0-47.0); Hemoglobin 10.8 g/dL (12.2-16.2); Lymphocytes # 1.8 K/mm3 (0.7-4.5); Lymphocytes % 9.8 % (10-50); Mean Corpuscular HGB Conc 31.2 g/dL (31.8-35.4); Mean Corpuscular Volume 88.2 fl (81-99); Mean Platelet Volume 7.8 fl (7.4-10.4); Monocytes # 0.7 K/mm3 (0.1-1.0); Monocytes % 3.6 % (1.7-9.3); Neutrophils # 15.7 K/mm3 (1.8-7.8); Neutrophils % 86.4 % (37.0-80.0); Platelet Count 513 K/mm3 (142-424); Red Blood Count 3.93 M/mm3 (4.20-5.40); Red Cell Distribution Width 13.2 % (11.5-17.5); White Blood Count 18.2 K/mm3 (4.8-10.8)
[2019-10-31 07:17] LABS: Lymphocytes % 7 % (10-50); Neutrophils % 87 % (42-76); Total Cells Counted 100
[2019-10-31 07:18] LABS: Hypochromasia 1+; Rouleaux 2+
[2019-10-31 07:20] LABS: Albumin Level 3.1 g/dl (3.5-5.0); Albumin/Globulin Ratio 0.9 (1.1-1.8); Anion Gap 10.7 mEq/L (5-15); Bilirubin,Total 0.3 mg/dl (0.2-1.3); Calcium 9.2 mg/dl (8.4-10.2); Globulin 3.3 g/dL (1.3-3.2); Total Protein,Serum 6.4 g/dl (6.3-8.2)
--- NOTE | 2019-10-31 09:01 | Progress Note ---
Internal Medicine - PN: Subj *Date: 10/31/19 *Time: 09:00 Interval history: Patient feels somewhat better, continues to have very minimal sputum production if at all. Exam Vital signs and Labs for Last 24 Hours: Temp Pulse Resp BP Pulse Ox 98.0 F 91 H 20 137/66 97 10/31/19 08:00 10/31/19 08:00 10/31/19 08:00 10/31/19 08:00 10/31/19 08:00 Laboratory Results - last 24 hr 10/30/19 12:03: POC Glucose 429 H* 10/30/19 17:05: POC Glucose 380 H* 10/30/19 20:02: POC Glucose 350 H* 10/31/19 05:48: POC Glucose 326 H* 10/31/19 06:40: WBC 18.2 H, RBC 3.93 L, Hgb 10.8 L, Hct 34.6 L, MCV 88.2, MCH 27.5, MCHC 31.2 L, RDW 13.2, Plt Count 513 H, MPV 7.8, Neut % (Auto) 86.4 H, Lymph % (Auto) 9.8 L, [place] % (Auto) 3.6, Eos % (Auto) 0.1, Baso % (Auto) 0.1, Neut # (Auto) 15.7 H, Lymph # (Auto) 1.8, [place] # (Auto) 0.7, Eos # (Auto) 0.0, Baso # (Auto) 0.0, Total Counted 100, Neutrophils % (Manual) 87 H, Band Neutrophils % 6.0, Lymphocytes % (Manual) 7 L, Platelet Estimate Slight increase, Hypochromasia 1+, Rouleaux 2+ 10/31/19 06:40: Sodium 134 L, Potassium 4.7 D, Chloride 99, Carbon Dioxide 29, Anion Gap 10.7, BUN 21 H D, Creatinine 0.50 L, Estimated Creat Clear 45, Estimated GFR 125, Est GFR ( Amer) 152, Glucose 320 H, Calcium 9.2, Total Bilirubin 0.3, AST 21, ALT 18, Alkaline Phosphatase 83, Total Protein 6.4, Albumin 3.1 L, Globulin 3.3 H, Albumin/Globulin Ratio 0.9 L I & O for Last 24 hours: Intake & Output 10/28/19 10/29/19 10/30/19 10/31/19 11:59 11:59 11:59 11:59 Intake Total 1819 / 1819 1117 / 1117 Output Total 300 / 300 1200 / 1200 Balance 1519 / 1519 -83 / -83 Weight 233 lb 4 oz 236 lb 2 oz 239 lb 7 oz - *Routine HEENT Exam Head: Present: normocephalic Eye: Present: EOMI, PERRL ENT: Present: mucous membranes moist - *Routine Neck Exam Present: supple. Absent: lymphadenopathy - *Routine Respiratory Exam Present: prolonged expiratory phase, rales Comments: Bilaterally but overall improved air movement - *Routine Cardiovascular Exam Present: RRR - *Routine Abdominal Exam Present: soft, normoactive bowel sounds. Absent: tenderness - *Routine Extremities Exam Absent: cyanosis, clubbing, edema - *Routine Skin Exam Present: warm. Absent: rash - *Routine Neurological Exam Present: alert, oriented X3 - Detailed Eye Exam Eyelids: Left normal inspection Assessment and Plan (1) CAP (community acquired pneumonia) Current visit: No Status: Acute Qualifiers: Laterality: left Lung location: unspecified part of lung Qualified Code(s): J18.9 - Pneumonia, unspecified organism Category: Medical Code(s): J18.9 - Pneumonia, unspecified organism (2) COPD (chronic obstructive pulmonary disease) Current visit: No Status: Acute Category: Medical Code(s): J44.9 - Chronic obstructive pulmonary disease, unspecified (3) Interstitial lung disease Current visit: No Status: Acute Category: Medical Code(s): J84.9 - Interstitial pulmonary disease, unspecified (4) Diabetes mellitus type 2, noninsulin dependent Current visit: Yes Status: Acute Category: Medical Code(s): E11.9 - Type 2 diabetes mellitus without complications (5) Obesity Current visit: Yes Status: Chronic Qualifiers: Obesity type: unspecified obesity type Obesity classification: adult class 3 (BMI >= 40) Category: Medical Code(s): E66.9 - Obesity, unspecified (6) Acute and chronic respiratory failure with hypoxia Current visit: Yes Status: Acute Category: Medical Code(s): J96.21 - Acute and chronic respiratory failure with hypoxia - Assessment and plan all Dx Assessment and Plan for all problems:: Overall improving, assess room air oxygen tomorrow, continue levofloxacin therapy for mycoplasma pneumonia. Mucomyst treatment today to try to obtain sputum culture.
[2019-11-01 07:02] LABS: Basophils % 0.1 % (0.1-2.0); Eosinophils # 0.1 K/mm3 (0.0-0.4); Eosinophils % 0.6 % (0.1-12.0); Hematocrit 35.4 % (37.0-47.0); Lymphocytes # 1.7 K/mm3 (0.7-4.5); Lymphocytes % 11.1 % (10-50); Mean Corpuscular HGB Conc 31.1 g/dL (31.8-35.4); Mean Corpuscular Volume 87.4 fl (81-99); Mean Platelet Volume 8.7 fl (7.4-10.4); Monocytes # 0.6 K/mm3 (0.1-1.0); Monocytes % 4.1 % (1.7-9.3); Neutrophils # 12.8 K/mm3 (1.8-7.8); Neutrophils % 84.1 % (37.0-80.0); Platelet Count 544 K/mm3 (142-424); Red Blood Count 4.05 M/mm3 (4.20-5.40); Red Cell Distribution Width 13.4 % (11.5-17.5); White Blood Count 15.3 K/mm3 (4.8-10.8)
--- NOTE | 2019-11-01 07:57 | Progress Note ---
Internal Medicine - PN: Subj *Date: 11/01/19 *Time: 07:57 Exam Vital signs and Labs for Last 24 Hours: Temp Pulse Resp BP Pulse Ox 97.8 F 84 18 180/90 H 93 L 11/01/19 04:00 11/01/19 06:52 11/01/19 04:00 11/01/19 04:00 11/01/19 06:52 Laboratory Results - last 24 hr 10/31/19 06:40: ALT 18 10/31/19 12:05: POC Glucose 290 H 10/31/19 17:03: POC Glucose 354 H* 10/31/19 20:20: POC Glucose 309 H* 11/01/19 05:57: POC Glucose 297 H 11/01/19 06:37: WBC 15.3 H, RBC 4.05 L, Hgb 11.0 L, Hct 35.4 L, MCV 87.4, MCH 27.2, MCHC 31.1 L, RDW 13.4, Plt Count 544 H, MPV 8.7, Neut % (Auto) 84.1 H, Lymph % (Auto) 11.1, [place] % (Auto) 4.1, Eos % (Auto) 0.6, Baso % (Auto) 0.1, Neut # (Auto) 12.8 H, Lymph # (Auto) 1.7, [place] # (Auto) 0.6, Eos # (Auto) 0.1, Baso # (Auto) 0.0 11/01/19 06:37: Sodium 136, Potassium 4.1, Chloride 97 L, BUN 18 H, Creatinine 0.60, Estimated Creat Clear 45, Estimated GFR 102, Est GFR ( Amer) 123, AST 23, ALT 21 I & O for Last 24 hours: Intake & Output 10/29/19 10/30/19 10/31/19 11/01/19 23:59 23:59 23:59 23:59 Intake Total 610 / 610 2236 / 2236 1679 / 1679 428 / 428 Output Total 900 / 1200 1200 / 1800 600 / 600 Balance 610 / 610 1336 / 1036 479 / -121 -172 / -172 Weight 105.8 kg 107.104 kg 108.607 kg 108.607 kg Microbiology Reports for the Last 24 Hours: Microbiology 10/31/19 14:50 Sputum - Expectorated Sputum Gram Stain - Final 10/29/19 12:35 Blood Blood Culture - Preliminary NO GROWTH AFTER 48 HOURS 10/29/19 12:35 Blood Blood Culture - Preliminary NO GROWTH AFTER 48 HOURS Assessment and Plan (1) CAP (community acquired pneumonia) Current visit: No Status: Acute Qualifiers: Laterality: left Lung location: unspecified part of lung Qualified Code(s): J18.9 - Pneumonia, unspecified organism Category: Medical Code(s): J18.9 - Pneumonia, unspecified organism (2) COPD (chronic obstructive pulmonary disease) Current visit: No Status: Acute Category: Medical Code(s): J44.9 - Chronic obstructive pulmonary disease, unspecified (3) Interstitial lung disease Current visit: No Status: Acute Category: Medical Code(s): J84.9 - Interstitial pulmonary disease, unspecified (4) Diabetes mellitus type 2, noninsulin dependent Current visit: Yes Status: Acute Category: Medical Code(s): E11.9 - Type 2 diabetes mellitus without complications (5) Obesity Current visit: Yes Status: Chronic Qualifiers: Obesity type: unspecified obesity type Obesity classification: adult class 3 (BMI >= 40) Category: Medical Code(s): E66.9 - Obesity, unspecified (6) Acute and chronic respiratory failure with hypoxia Current visit: Yes Status: Acute Category: Medical Code(s): J96.21 - Acute and chronic respiratory failure with hypoxia The patient's infection will respond to the chosen ABx?: Yes Is the patient receiving the right drug, dose, and route?: Yes Could a more targeted ABx be ordered?: No (SPUTUM PENDING OF DOCUMENTATION)
[2019-11-01 08:22] LABS: Albumin Level 3.3 g/dl (3.5-5.0); Albumin/Globulin Ratio 0.9 (1.1-1.8); Anion Gap 14.1 mEq/L (5-15); Calcium 9.2 mg/dl (8.4-10.2); Globulin 3.5 g/dL (1.3-3.2); Total Protein,Serum 6.8 g/dl (6.3-8.2)
[2019-11-01 08:33] LABS: Bilirubin,Total 0.3 mg/dl (0.2-1.3)
--- NOTE | 2019-11-01 08:43 | Discharge Summary ---
General - General Admission date:: 10/29/19 Discharge date: 11/01/19 HPI HPI: 59 year old Female with history of intersitial lung disease, RA and DM - came to office with SOA and low sats at PT department today... came to office - was recommended to go to ER, but chose to come to office. Found to have cough, low sats, and crackles on lungs. Admitted to [facility] for further diagnosis. Hospital Course Hospital Course: Patient was admitted, Mycoplasma titers/serologies were positive. Patient was continued on levofloxacin. She also improved from this in a stepwise fashion on a daily basis. And tolerated levofloxacin very well. She was found to have ongoing oxygen requirement even this morning. This morning she feels much more comfortable, and is breathing well on oxygen, she will be discharged home on levofloxacin and prednisone. I will follow her closely on Friday to reassess oxygen requirement. Chest x-ray did show suspicious nodularity, and patient is scheduled for pulmonary work-up again in November with Dr. Martini with another CT scan scheduled. Objective Vital signs: Temp Pulse Resp BP Pulse Ox 97.8 F 102 H 22 169/80 H 92 L 11/01/19 08:00 11/01/19 08:00 11/01/19 08:00 11/01/19 08:00 11/01/19 08:00 Narrative: Patient is awake and alert. Pleasant. Comfortable on 2 L nasal cannula. Lungs have good air movement. Minimal crackles and rhonchi in the bases but vastly improved over admission. Abdomen soft and nontender. No edema or clubbing. ENT exam clear. Oropharynx moist. Neurologic exam intact. Results Labs on day of discharge: Labs from last 24 hours 11/01/19 11/01/19 11/01/19 06:37 06:37 05:57 WBC 15.3 H RBC 4.05 L Hgb 11.0 L Hct 35.4 L MCV 87.4 MCH 27.2 MCHC 31.1 L RDW 13.4 Plt Count 544 H MPV 8.7 Neut % (Auto) 84.1 H Lymph % (Auto) 11.1 [place] % (Auto) 4.1 Eos % (Auto) 0.6 Baso % (Auto) 0.1 Neut # (Auto) 12.8 H Lymph # (Auto) 1.7 [place] # (Auto) 0.6 Eos # (Auto) 0.1 Baso # (Auto) 0.0 Sodium 136 Potassium 4.1 Chloride 97 L Carbon Dioxide 29 Anion Gap 14.1 BUN 18 H Creatinine 0.60 Estimated Creat Clear 45 Estimated GFR 102 Est GFR ( Amer) 123 Glucose 291 H POC Glucose 297 H Calcium 9.2 AST 23 ALT 21 Total Protein 6.8 Albumin 3.3 L Globulin 3.5 H Albumin/Globulin Ratio 0.9 L 10/31/19 10/31/19 10/31/19 20:20 17:03 12:05 WBC RBC Hgb Hct MCV MCH MCHC RDW Plt Count MPV Neut % (Auto) Lymph % (Auto) [place] % (Auto) Eos % (Auto) Baso % (Auto) Neut # (Auto) Lymph # (Auto) [place] # (Auto) Eos # (Auto) Baso # (Auto) Sodium Potassium Chloride Carbon Dioxide Anion Gap BUN Creatinine Estimated Creat Clear Estimated GFR Est GFR ( Amer) Glucose POC Glucose 309 H* 354 H* 290 H Calcium AST ALT Total Protein Albumin Globulin Albumin/Globulin Ratio Preliminary micro results at discharge 10/29/19 12:35 Blood Culture - Preliminary Blood NO GROWTH AFTER 48 HOURS 10/29/19 12:35 Blood Culture - Preliminary Blood NO GROWTH AFTER 48 HOURS DS: Diagnosis - Discharge Diagnosis (1) CAP (community acquired pneumonia) Status: Acute Problem details: Secondary to mycoplasma (2) COPD (chronic obstructive pulmonary disease) Status: Acute (3) Interstitial lung disease Status: Acute (4) Diabetes mellitus type 2, noninsulin dependent Status: Acute (5) Obesity Status: Chronic (6) Acute and chronic respiratory failure with hypoxia Status: Acute Discharge Plan - Patient Discharge Instructions ACTIVITY: Continue current activity DIET: continue same diet Patient Instructions: Chronic Obstructive Pulmonary Disease, Atypical Pneumonia, DI for Chronic Obstructive Pulmonary Disease, DI for Pneumonia -- Adult, DI for Hypoxia - Follow up Plan Follow up with: Eben Liu MD [Primary Care Provider] - 11/05/19 Disposition: Home, Self-Group Home Medications: Home Medications Medication Instructions Recorded Confirmed Type Glimepiride [Amaryl] 2 mg PO BID 10/05/17 10/29/19 History Metformin HCl [Glucophage 500mg 1,000 mg PO BID 10/05/17 10/29/19 History Tablet] Metoprolol Tartrate [Lopressor 25 mg PO BID 10/05/17 10/29/19 History 25mg tablet] Ibuprofen [Ibu] 800 mg PO TID PRN 01/26/18 10/29/19 History Albuterol Sulfate [Albuterol HFA 2 puffs IH Q6HP PRN #1 inh 03/18/19 10/29/19 Rx Inhaler] Inhaler, Assist Devices [Space 1 each MC Q6H PRN #1 spacer 03/18/19 10/29/19 Rx Chamber Plus] predniSONE [Deltasone 10mg tablet] 10 mg PO NEEDED PRN 03/18/19 10/29/19 History sulfaSALAzine [Sulfasalazine Dr] 3 tab PO BID 03/18/19 10/29/19 History Promethazine/Dextromethorphan 5 ml PO Q6HP PRN #240 syrup 09/07/19 10/29/19 Rx [Promethazine-Dm Syrup] Aspirin [Aspir 81] 81 mg PO DAILY 10/29/19 10/29/19 History Omeprazole [Omeprazole 20mg 20 mg PO DAILY 10/29/19 10/29/19 History Capsule] Tofacitinib Citrate [Xeljanz Xr] 11 mg PO DAILY 10/29/19 10/29/19 History levoFLOXacin [Levaquin 500mg 500 mg PO DAILY #5 tab 11/01/19 Rx tab] predniSONE [Deltasone 20mg 20 mg PO BID 7 Days #14 tab 11/01/19 Rx tablet] Prescriptions/Medication Reconciliation: New predniSONE [Deltasone 20mg tablet] 20 mg PO BID 7 Days #14 tab levoFLOXacin [Levaquin 500mg tab] 500 mg PO DAILY #5 tab Continued Glimepiride [Amaryl] 2 mg PO BID Metformin HCl [Glucophage 500mg Tablet] 1,000 mg PO BID predniSONE [Deltasone 10mg tablet] 10 mg PO NEEDED PRN PRN Reason: rheumatoid arthritis Albuterol Sulfate [Albuterol HFA Inhaler] 2 puffs IH Q6HP PRN #1 inh PRN Reason: Shortness Of Breath Or Wheezing Inhaler, Assist Devices [Space Chamber Plus] 1 each MC Q6H PRN #1 spacer PRN Reason: Pneumonia Promethazine/Dextromethorphan [Promethazine-Dm Syrup] 5 ml PO Q6HP PRN #240 syrup PRN Reason: Cough Metoprolol Tartrate [Lopressor 25mg tablet] 25 mg PO BID Ibuprofen [Ibu] 800 mg PO TID PRN PRN Reason: pain sulfaSALAzine [Sulfasalazine Dr] 3 tab PO BID Tofacitinib Citrate [Xeljanz Xr] 11 mg PO DAILY Aspirin [Aspir 81] 81 mg PO DAILY Omeprazole [Omeprazole 20mg Capsule] 20 mg PO DAILY - Problem Reconciliation Problems Reviewed?: Yes
[2019-11-01 09:58] LABS: Lymphocytes % 13 % (10-50); Monocytes % 5 % (2-9); Neutrophils % 82 % (42-76); Total Cells Counted 100
[2019-11-01 09:59] LABS: Hypochromasia 1+
== END 2019-11-01 12:52 | disposition home or self-care (01) | DRG 189 ==
LOC: 2ND → OBSVTOIN 10:55
PROVIDERS: ADMIT Internal Medicine Adolescent Medicine; ATTEND Internal Medicine Adolescent Medicine
CPT/HCPCS: 36415; 71020; 71046; 80048; 80053; 82962; 83605; 83735; 84484; 85007; 85025; 86738; 87040; 87070; 87205; 87275; 87276; 93005; 94640; 94760; 94761; J1956

== ENCOUNTER → 2020-01-07 11:04 | Outpatient (CLI) | payer OTHER, SELFPAY ==
[2020-01-07 11:36] LABS: Basophils # 0.1 K/mm3 (0-0.2); Basophils % 0.5 % (0.1-2.0); Eosinophils # 0.2 K/mm3 (0.0-0.4); Eosinophils % 1.5 % (0.1-12.0); Hematocrit 39.5 % (37.0-47.0); Hemoglobin 12.2 g/dL (12.2-16.2); Lymphocytes # 3.8 K/mm3 (0.7-4.5); Lymphocytes % 30.4 % (10-50); Mean Corpuscular HGB Conc 30.9 g/dL (31.8-35.4); Mean Corpuscular Hemoglobin 27.2 pg (27.0-31.2); Mean Corpuscular Volume 88.2 fl (81-99); Mean Platelet Volume 8.2 fl (7.4-10.4); Monocytes # 0.7 K/mm3 (0.1-1.0); Monocytes % 5.5 % (1.7-9.3); Neutrophils # 7.7 K/mm3 (1.8-7.8); Neutrophils % 62.2 % (37.0-80.0); Platelet Count 376 K/mm3 (142-424); Red Blood Count 4.48 M/mm3 (4.20-5.40); White Blood Count 12.4 K/mm3 (4.8-10.8)
[2020-01-07 12:31] LABS: Chloride 98 mmol/L (98-107); Sodium 135 mmol/L (136-145)
[2020-01-07 12:32] LABS: Potassium 4.2 mmoL/L (3.5-5.1)
[2020-01-07 12:34] LABS: Alanine Aminotransferase 27 U/L (12-78); Albumin Level 3.5 g/dl (3.5-5.0); Alkaline Phosphatase 115 U/L (38-126); Anion Gap 11.2 mEq/L (5-15); Aspartate Amino Transferase 21 U/L (14-36); Bilirubin,Total 0.3 mg/dl (0.2-1.3); Blood Urea Nitrogen 11 mg/dl (7-17); Carbon Dioxide 30 mmol/L (22.0-30.0); Estimated Glomerular Filt Rate 125 ml/min (>60); GFR (African American) 152 ML/MIN (>60); Globulin 3.5 g/dL (1.3-3.2)
[2020-01-07 12:35] LABS: Calcium 9.4 mg/dl (8.4-10.2); Chol/HDL Ratio 3.8 (1-3.5); Cholesterol 228 mg/dl (140-200); Glucose 227 mg/dl (74-100); HDL Cholesterol 60 mg/dl (40-60); Triglycerides 141 mg/dl (30-150); VLDL Cholesterol 28 mg/dL (0-40)
[2020-01-07 12:46] LABS: Direct LDL Cholesterol 183.62 mg/dL (100-129)
[2020-01-07 14:16] LABS: Hemoglobin A1C 11.3 % (4.0-6.0)
== END ==
PROVIDERS: Internal Medicine; Visit Provider Internal Medicine Adolescent Medicine
DX: M05.79 Rheumatoid arthritis with rheumatoid factor of multiple sites without organ or systems involvement (principal); E11.9 Type 2 diabetes mellitus without complications; Z79.899 Other long term (current) drug therapy; Z79.84 Long term (current) use of oral hypoglycemic drugs
CPT/HCPCS: 36415; 80053; 80061; 83036; 85025

== ENCOUNTER 2020-05-26 22:01 | Observation (INO) | payer OTHER, SELFPAY ==
--- NOTE | 2020-05-26 21:56 | ECG_ITS ---
APPROVED REPORT Exam: Resting ECG HR:95 bpm ECG Measurements Heart Rate 95 AXES [place] 148 P 52 QRSd 78 QRS 2 QT 372 T 51 QTc 467 <Conclusion> Normal sinus rhythm [employer] Artifact Otherwise a normal ECG Electronically signed by : Bruce Eason, 05/30/2020 09:44:13
[2020-05-26 22:02] VITALS: BP 174/103; PULSE 83; RESP 20; TEMP 36.8; O2SAT 84; BMI 43.9
[2020-05-26 22:03] VITALS: O2SAT 94
--- NOTE | 2020-05-26 22:21 | XR_ITS ---
PROCEDURE: XR CHEST 2V Referring Doctor: Elroy Phan Patient Age:59Y CLINICAL HISTORY: SOA/chest pain Short of breath and dyspnea for 3 days. Right-sided chest pain and pressure which radiates into the neck. Patient has had a cough which he says is chronic. Also has interstitial lung disease COMPARISON: CR Chest from 03/18/[address] chest w con from 03/18/2019 DX XR CHEST 2V from 08/09/2019 CR XR CHEST 2V from 10/29/2019 FINDINGS: Today's PA and lateral chest is compared to October 2027 and March 2019 two-view chest as well as prior CT. The patient does have chronic fibrotic changes as seen on the 2019 CT. Although the lungs, particularly right lung, actually appear clearer than on October 2019 CXR I am suspect that may indeed be new infiltrate superimposed currently superimposed upon chronic changes. Difficult to know the baseline and with the patchy infiltrate CXR appearance question if had covid in October. Overall suspect new patchy infiltrate superimposed upon chronic changes, correlation required: At the left lung of these are seen at the periphery of the left mid lung, left infrahilar region and left base. In the right lung question patchy infiltrate right mid lung and right lung base., with these features superimposed upon the fibrotic and chronic lung changes I would note that there is suboptimal inspiration today with diaphragm only down to the anterior 5th rib end which may also accentuate and crowds markings particularly here on right There is mild cardiomegaly. Perhaps slight accentuated pulmonary vascularity, upper normal to slightly increased. The CP angles are clear. No discrete pleural effusion. No pneumothorax. Lluvia and mediastinal structures unremarkable. Chest wall unremarkable. . IMPRESSION: Bilateral infiltrates superimposed upon chronic changes - although today's CXR as improved since October 2019 I would be suspect there are some current active bilateral infiltrates currently superimposed upon chronic changes.. Because of abundant lung finding seen on October CXR, and no available interval chest studies, it is difficult to know baseline for this patient. Ongoing follow-up recommended Mild cardiomegaly with borderline mild vascular congestion.. Dictated by: Asim Thomas MD 05/27/2020 12:50 Asim Thomas MD in [place] 05/27/2020 12:50
[2020-05-26 22:30] LABS: Basophils # 0.1 K/mm3 (0-0.2); Basophils % 0.7 % (0.1-2.0); Eosinophils # 0.2 K/mm3 (0.0-0.4); Eosinophils % 1.7 % (0.1-12.0); Hematocrit 40.7 % (37.0-47.0); Hemoglobin 13.8 g/dL (12.2-16.2); Lymphocytes # 3.2 K/mm3 (0.7-4.5); Lymphocytes % 27.9 % (10-50); Mean Corpuscular HGB Conc 33.9 g/dL (31.8-35.4); Mean Corpuscular Hemoglobin 31.1 pg (27.0-31.2); Mean Corpuscular Volume 91.7 fl (81-99); Mean Platelet Volume 7.9 fl (7.4-10.4); Monocytes # 0.8 K/mm3 (0.1-1.0); Monocytes % 6.8 % (1.7-9.3); Neutrophils # 7.3 K/mm3 (1.8-7.8); Neutrophils % 62.9 % (37.0-80.0); Platelet Count 231 K/mm3 (142-424); Red Blood Count 4.43 M/mm3 (4.20-5.40); Red Cell Distribution Width 13.5 % (11.5-17.5); White Blood Count 11.6 K/mm3 (4.8-10.8)
[2020-05-26 22:37] LABS: Chloride 100 mmol/L (98-107); Sodium 136 mmol/L (136-145)
[2020-05-26 22:38] LABS: Potassium 4.2 mmoL/L (3.5-5.1)
[2020-05-26 22:40] LABS: Blood Urea Nitrogen 23 mg/dl (7-17); Creatinine Clearance Estimated 47 mL/min (50-200); Estimated Glomerular Filt Rate 85 ml/min (>60); GFR (African American) 103 ML/MIN (>60)
[2020-05-26 22:41] LABS: Anion Gap 12.2 mEq/L (5-15); Calcium 9.5 mg/dl (8.4-10.2); Carbon Dioxide 28 mmol/L (22.0-30.0); Glucose 302 mg/dl (74-100)
[2020-05-26 22:43] LABS: Microscopic, Urine URINE MICROSCOPIC (MICROSCOPIC)
[2020-05-26 22:53] LABS: Appearance,Urine TURBID (Clear); Bilirubin,Urine Negative (Negative); Blood, Urine 1+ (Negative); Color,Urine YELLOW (Yellow); Glucose,Urine (UA) 3+ (Negative); Ketones,Urine Negative (Negative); Leukocyte Esterase,Urine Negative (Negative); Nitrate,Urine POSITIVE (Negative); Protein,Urine 1+ (Negative); Specific Gravity, Urine >= 1.030 (1.005-1.030); Urobilinogen,Urine 0.2 EU/dl (0.2)
[2020-05-26 22:58] LABS: Troponin I < 0.01 ng/ml (0.00-0.034)
[2020-05-26 22:59] LABS: Amorphous Sediment,Urine 3+ /lpf; Bacteria,Urine 3+ /lpf; WBC,Urine 20-50 #/hpf (0-3)
[2020-05-26 23:02] VITALS: BP 182/84; PULSE 86; RESP 20; O2SAT 95
[2020-05-26 23:03] LABS: ABG Base Excess 2.9 mmol/L (-2.4-2.3); ABG HCO3 27.9 mmhg (22.0-26.0); ABG Oxygen Saturation 94 % (90-100); ABG PCO2 47.2 mmhg (35.0-45.0); ABG PH 7.39 mmol/L (7.35-7.45); ABG PO2 67.4 mmhg (80-100); ABG TCO2 29.3 mmhg (23-27)
[2020-05-26 23:05] LABS: Oxygen 3L %
[2020-05-26 23:06] LABS: Allen's Test Acceptable; Source Left Radial
--- NOTE | 2020-05-26 23:28 | [facility].EDCP ---
ED Disposition Clinical Impression: Diabetes mellitus type 2, noninsulin dependent, Interstitial lung disease Chest pain Qualifiers: Chest pain type: precordial pain Qualified Code(s): R07.2 - Precordial pain Obesity Qualifiers: Obesity type: due to excess calories Obesity classification: adult class 3 (BMI >= 40) Serious obesity comorbidity presence: with serious comorbidity Body mass index: BMI 40.0-44.9 Qualified Code(s): E66.01 - Morbid (severe) obesity due to excess calories UTI (urinary tract infection) Qualifiers: Urinary tract infection type: site unspecified Hematuria presence: without hematuria Qualified Code(s): N39.0 - Urinary tract infection, site not specified Disposition: Admitted as Observation Condition on Discharge: Good Instructions: DI for Chest Pain Additional Instructions: fluids and use meds and call pcp in am for follow up on chest pain and also urine culture Prescriptions: levoFLOXacin [Levaquin 500mg tab] 500 mg PO DAILY #7 tab Transmission Status: Received by [id number] Referrals: Eben Liu MD [Primary Care Provider] - - Critical Care Critical Care Time: No Attestation: On 05/26/20, the high probability of a clinically significant, sudden or life threatening deterioration of the following system(s) required my full and direct attention, intervention and personal management. The time I documented below is in addition to time spent performing reported procedures but includes the following listed in this critical care notation. Medical Decision Making - Medical Records Medical records reviewed: Yes: I reviewed the patient's medical records. - Martin Inquiry Pt receiving controlled substance: No Vital Signs: 05/26/20 22:02 05/26/20 22:03 05/26/20 23:02 Temperature 98.2 F Temperature Source Oral Pulse Rate [Left Radial] 83 86 Respiratory Rate 20 20 Blood Pressure [Right Arm] 174/103 H 182/84 H Blood Pressure Mean [Right Arm] 126 116 Blood Pressure Source [Right Arm] Automatic Cuff Automatic Cuff Blood Pressure Position [Right Arm] Sitting Sitting 02 Sat by Pulse Oximetry 84 L 94 L 95 Oxygen Delivery Method Room Air Nasal Cannula Nasal Cannula Oxygen Flow Rate (LPM) 3 3 05/26/20 23:44 Temperature Temperature Source Pulse Rate [Left Radial] 90 Respiratory Rate 16 Blood Pressure [Right Arm] 144/77 H Blood Pressure Mean [Right Arm] 99 Blood Pressure Source [Right Arm] Automatic Cuff Blood Pressure Position [Right Arm] Sitting 02 Sat by Pulse Oximetry 94 L Oxygen Delivery Method Nasal Cannula Oxygen Flow Rate (LPM) 3 - Lab Data Lab results reviewed: Yes: I reviewed the patient's lab results. Lab Results 05/26/20 22:20: WBC 11.6 H, RBC 4.43, Hgb 13.8, Hct 40.7, MCV 91.7, MCH 31.1, MCHC 33.9, RDW 13.5, Plt Count 231, MPV 7.9, Neut % (Auto) 62.9, Lymph % (Auto) 27.9, Page % (Auto) 6.8, Eos % (Auto) 1.7, Baso % (Auto) 0.7, Neut # (Auto) 7.3, Lymph # (Auto) 3.2, Page # (Auto) 0.8, Eos # (Auto) 0.2, Baso # (Auto) 0.1 05/26/20 22:20: Sodium 136, Potassium 4.2, Chloride 100, Carbon Dioxide 28, Anion Gap 12.2, BUN 23 H, Creatinine 0.70, Estimated Creat Clear 47, Estimated GFR 85, Est GFR ( Amer) 103, Glucose 302 H, Calcium 9.5, Troponin I < 0.01 05/26/20 22:38: Urine Color Yellow, Urine Appearance Turbid, Urine pH 6.0, Ur Specific [place] >= 1.030, Urine Protein 1+, Urine Glucose (UA) 3+, Urine Ketones Negative, Urine Blood 1+, Urine Nitrate Positive, Urine Bilirubin Negative, Urine Urobilinogen 0.2, Ur Leukocyte Esterase Negative, Urine RBC 3-5, Urine WBC 20-50, Ur Squamous Epith Cells 5-10, Amorphous Sediment 3+, Urine Bacteria 3+ 05/26/20 23:00: Specimen Source Left radial, O2 % 3l, ABG pH 7.39, ABG pCO2 47.2 H, ABG pO2 67.4 L, ABG HCO3 27.9 H, ABG Total CO2 29.3 H, ABG O2 Saturation 94, ABG Base Excess 2.9 H, Ron Test Acceptable Result diagrams: 05/26/20 22:20 05/26/20 22:20 Orders (Tests/Meds): ED MEDICATIONS Generic Name Dose
[2020-05-26 23:44] VITALS: BP 144/77; PULSE 90; RESP 16; O2SAT 94
--- NOTE | 2020-05-26 23:46 | PC.NURSE ---
speaking with Dr. Solomon. he stated to get second trop. then reassess.
[2020-05-27] VITALS (12 sets, daily range): BP systolic 133–175; BP diastolic 66–95; PULSE 81–107; RESP 18–22; TEMP 36.6–36.8; O2SAT 91–96; BMI 41.9
--- NOTE | 2020-05-27 00:20 | PC.NURSE ---
report called to JESSE Hernandez
[2020-05-27 00:22] LABS: Coronavirus 19 IgM Antibody Positive (Negative)
[2020-05-27 00:23] LABS: Coronavirus 19 IgG Antibody Positive (Negative)
--- NOTE | 2020-05-27 00:31 | PC.NURSE ---
lab reported pos. IgM/IgG antibody results. spoke with Patricia Mera Sup. stated to get in patient swab to determine is pt is a positive before moving to a room.
[2020-05-27 02:08] LABS: Troponin I < 0.01 ng/ml (0.00-0.034)
--- NOTE | 2020-05-27 02:14 | PC.NURSE ---
this nurse spoke to lab to check on pts covid results. lab stated it would be another 42 mins
--- NOTE | 2020-05-27 02:53 | PC.NURSE ---
lab states one minute left on the COVID swab
--- NOTE | 2020-05-27 02:58 | PC.NURSE ---
pt ambulated to the bathroom independently. tolerated well
--- NOTE | 2020-05-27 03:09 | PC.NURSE ---
lab stated pt was a partial positive.
--- NOTE | 2020-05-27 03:15 | PC.NURSE ---
gave report to JESSE Nunez
--- NOTE | 2020-05-27 03:21 | PC.NURSE ---
pt was placed in wheelchair and in route to be transferred to unit when lab called back and stated she was going to rerun the swab because she wasnt able to report a partial positive. [facility] notified
--- NOTE | 2020-05-27 03:23 | PC.NURSE ---
pt still transported to unit
--- NOTE | 2020-05-27 03:37 | PC.NURSE ---
[id number] spoke with house and got new room # for pt on the unit
[2020-05-27 05:25] LABS: Troponin I < 0.01 ng/ml (0.00-0.034)
[2020-05-27 06:42] LABS: Basophils % 0.2 % (0.1-2.0); Eosinophils % 0.1 % (0.1-12.0); Hematocrit 39.4 % (37.0-47.0); Hemoglobin 12.8 g/dL (12.2-16.2); Lymphocytes # 1.4 K/mm3 (0.7-4.5); Lymphocytes % 9.7 % (10-50); Mean Corpuscular HGB Conc 32.3 g/dL (31.8-35.4); Mean Corpuscular Hemoglobin 30.6 pg (27.0-31.2); Mean Corpuscular Volume 94.5 fl (81-99); Mean Platelet Volume 9.7 fl (7.4-10.4); Monocytes # 0.3 K/mm3 (0.1-1.0); Monocytes % 2.3 % (1.7-9.3); Neutrophils # 12.6 K/mm3 (1.8-7.8); Neutrophils % 87.6 % (37.0-80.0); Platelet Count 232 K/mm3 (142-424); Red Blood Count 4.17 M/mm3 (4.20-5.40); Red Cell Distribution Width 13.2 % (11.5-17.5); White Blood Count 14.4 K/mm3 (4.8-10.8)
[2020-05-27 06:44] LABS: Chloride 100 mmol/L (98-107); Potassium 4.7 mmoL/L (3.5-5.1); Sodium 133 mmol/L (136-145)
[2020-05-27 06:47] LABS: Anion Gap 14.7 mEq/L (5-15); Blood Urea Nitrogen 32 mg/dl (7-17); Carbon Dioxide 23 mmol/L (22.0-30.0); Cholesterol 213 mg/dl (140-200); Creatinine Clearance Estimated 47 mL/min (50-200); Estimated Glomerular Filt Rate 102 ml/min (>60); GFR (African American) 123 ML/MIN (>60); Triglycerides 342 mg/dl (30-150); VLDL Cholesterol 68 mg/dL (0-40)
[2020-05-27 06:48] LABS: Calcium 8.7 mg/dl (8.4-10.2); Chol/HDL Ratio 7.6 (1-3.5); HDL Cholesterol 28 mg/dl (40-60); Magnesium 1.4 mg/dl (1.6-2.3)
[2020-05-27 06:50] LABS: MANUAL DIFFERENTIAL MANUAL DIFFERENTIAL (MANUAL DIFF)
[2020-05-27 06:54] LABS: Glucose 497 mg/dl (74-100)
[2020-05-27 06:58] LABS: Direct LDL Cholesterol 127.87 mg/dL (100-129)
--- NOTE | 2020-05-27 06:58 | PC.NURSE ---
critical lab glucose level results received at same time as ordered fingerstick. fingerstick falls withing insulin ordered parameters for treatment.
--- NOTE | 2020-05-27 07:00 | PC.NURSE ---
received call from lab notifiying covid test results negative. household appliance repairer notified.
[2020-05-27 07:02] LABS: POC Glucose,Bedside 430 (70-110)
--- NOTE | 2020-05-27 07:41 | HMH.HP ---
*Admission Date: 05/27/20 *Chief complaint: right sided chest pain [facility] History Medical History: Reports:: Asthma, Diabetes Mellitus Type 2, Hyperlipidemia, Hypertension, Palpitations Denies:: Cancer, Diabetes Mellitus Type 1, MRSA *Have you ever received a pneumonia vaccine?: Yes (takes every year) *Have you received a flu vaccine this season?: No Other Medical History: Reports: Arthritis, Other (RA) Other Surgeries: Yes: Appendectomy, Hysterectomy-Total, Tubal Ligation Amputation: No Fractures: No - *Social History Last grade of school completed: Some college Smoking Status: Former smoker Tobacco Type: cigarettes Alcohol Intake: never *Occupational Status:: retired Housing: house Household Members: spouse *Travel in the last 8 weeks: None Family Hx:: Cancer, Hypertension, Kidney Disease Review of Systems - *Neurologic Denies localized weakness Meds Home Medications Medication Instructions Recorded Confirmed Type Glimepiride [Amaryl] 2 mg PO BID 10/05/17 05/26/20 History Metformin HCl [Glucophage 500mg 1,000 mg PO BID 10/05/17 05/26/20 History Tablet] Metoprolol Tartrate [Lopressor 25 mg PO BID 10/05/17 05/26/20 History 25mg tablet] Ibuprofen [Ibuprofen 800mg 800 mg PO TID PRN 01/26/18 05/26/20 History Tablet] Albuterol Sulfate [Ventolin HFA 2 puffs IH Q6HP PRN #1 inh 03/18/19 05/26/20 Rx Inhaler] Inhaler, Assist Devices [Space 1 each MC Q6H PRN #1 spacer 03/18/19 05/26/20 Rx Chamber Plus] predniSONE [Deltasone 10mg tablet] 10 mg PO NEEDED PRN 03/18/19 05/26/20 History sulfaSALAzine [Sulfasalazine Dr] 3 tab PO BID 03/18/19 05/26/20 History Aspirin [Aspir 81] 81 mg PO DAILY 10/29/19 05/26/20 History Omeprazole [Omeprazole 20mg 20 mg PO DAILY 10/29/19 05/26/20 History Capsule] levoFLOXacin [Levaquin 500mg 500 mg PO DAILY #7 tab 05/26/20 Rx tab] Allergies Allergy/AdvReac Type Severity Reaction Status Date / Time leflunomide [From ARAVA] Allergy Severe I-RASH Verified 05/29/18 13:24 Penicillins [PENICILLINS] Allergy Intermediate Verified 05/29/18 13:24 Sulfa (Sulfonamide Allergy Unknown Verified 05/29/18 13:24 Antibiotics) [SULFA (SULFONAMIDE ANTIBIOTICS)] Exam Vital signs and Labs for Last 24 Hours: Temp Pulse Resp BP Pulse Ox 98.3 F 100 H 18 133/66 91 L 05/27/20 03:50 05/27/20 04:00 05/27/20 03:50 05/27/20 03:50 05/27/20 03:50 Laboratory Results - last 24 hr 05/26/20 22:20: WBC 11.6 H, RBC 4.43, Hgb 13.8, Hct 40.7, MCV 91.7, MCH 31.1, MCHC 33.9, RDW 13.5, Plt Count 231, MPV 7.9, Neut % (Auto) 62.9, Lymph % (Auto) 27.9, [place] % (Auto) 6.8, Eos % (Auto) 1.7, Baso % (Auto) 0.7, Neut # (Auto) 7.3, Lymph # (Auto) 3.2, [place] # (Auto) 0.8, Eos # (Auto) 0.2, Baso # (Auto) 0.1 05/26/20 22:20: Sodium 136, Potassium 4.2, Chloride 100, Carbon Dioxide 28, Anion Gap 12.2, BUN 23 H, Creatinine 0.70, Estimated Creat Clear 47, Estimated GFR 85, Est GFR ( Amer) 103, Glucose 302 H, Calcium 9.5, Troponin I < 0.01 05/26/20 22:20: SARS-CoV-2 IgG Ab (Rapid) Positive A, SARS-CoV-2 IgM Ab (Rapid) Positive A 05/26/20 22:38: Urine Color Yellow, Urine Appearance Turbid, Urine pH 6.0, Ur Specific [place] >= 1.030, Urine Protein 1+, Urine Glucose (UA) 3+, Urine Ketones Negative, Urine Blood 1+, Urine Nitrate Positive, Urine Bilirubin Negative, Urine Urobilinogen 0.2, Ur Leukocyte Esterase Negative, Urine RBC 3-5, Urine WBC 20-50, Ur Squamous Epith Cells 5-10, Amorphous Sediment 3+, Urine Bacteria 3+ 05/26/20 23:00: Specimen Source Left radial, O2 % 3l, ABG pH 7.39, ABG pCO2 47.2 H, ABG pO2 67.4 L, ABG HCO3 27.9 H, ABG Total CO2 29.3 H, ABG O2 Saturation 94, ABG Base Excess 2.9 H, Ron Test Acceptable 05/27/20 01:39: Troponin I < 0.01 05/27/20 04:50: Troponin I < 0.01 05/27/20 04:50: WBC 14.4 H, RBC 4.17 L, Hgb 12.8, Hct 39.4, MCV 94.5, MCH 30.6, MCHC 32.3, RDW 13.2, Plt Count 232, MPV 9.7, Neut % (Auto) 87.6 H, Lymph % (Auto) 9.7 L, [place] % (Auto) 2.3, Eos % (Auto
[2020-05-27 11:16] LABS: Lymphocytes % 11 % (10-50); Monocytes % 3 % (2-9); Neutrophils % 84 % (42-76); Platelet Estimate Normal; RBC Morphology Normal; Total Cells Counted 100
[2020-05-27 11:26] LABS: POC Glucose,Bedside 391 (70-110)
--- NOTE | 2020-05-27 12:29 | HMH.HPDC ---
General - General Admission date:: 05/27/20 Discharge date: 05/27/20 *Admission Date: 05/27/20 *Chief complaint: right sided chest pain *History of present illness: Ms. Sanz is a 59 yo F with history of interstitial pulmonary fibrosis. She came to the ER last night describing intermittent right sided pinching chest pain that lasted for about 30 minutes and had some slight shortness of breath. Also had a headache and intermittent pain in her right arm. Pain resolved by the time she got to the ER without any treatment. On initial assessment, EKG was at her baseline. Negative troponin. Labs otherwise unremarkable on her baseline oxygen requirement of 3 L. Chest x-ray with no focal findings. During work-up however COVID antibodies were obtained that were both positive. Patient was admitted for observation of chest pain, serial cardiac enzymes, and repeat testing for COVID-19. On interview this morning, patient is stable with no worsening respiratory symptoms. Denies further chest pain. Is afebrile. In no acute distress. Reports no chest pain, arm pain, neck pain. States overall she feels really good this morning. [facility] History I have reviewed the patient's past medical history: Yes Medical History: Reports:: Asthma, Diabetes Mellitus Type 2, Hyperlipidemia, Hypertension, Palpitations Denies:: Cancer, Diabetes Mellitus Type 1, MRSA *Have you ever received a pneumonia vaccine?: Yes (takes every year) *Have you received a flu vaccine this season?: No Other Medical History: Reports: Arthritis, Other (RA) Other Surgeries: Yes: Appendectomy, Hysterectomy-Total, Tubal Ligation Amputation: No Fractures: No - *Social History Last grade of school completed: Some college Smoking Status: Former smoker Tobacco Type: cigarettes Alcohol Intake: never *Occupational Status:: retired Housing: house Household Members: spouse *Travel in the last 8 weeks: None Family Hx:: Cancer, Hypertension, Kidney Disease Review of Systems - Review of Systems Review of systems:: pertinent systems reviewed and negative unless documented below (14 point review of systems performed, pertinent positives and negatives as per HPI) - *Neurologic Denies localized weakness Exam Vital signs and Labs for Last 24 Hours: Temp Pulse Resp BP Pulse Ox 98.1 F 81 22 165/92 H 95 05/27/20 12:00 05/27/20 12:00 05/27/20 12:00 05/27/20 12:00 05/27/20 12:00 Laboratory Results - last 24 hr 05/26/20 22:20: WBC 11.6 H, RBC 4.43, Hgb 13.8, Hct 40.7, MCV 91.7, MCH 31.1, MCHC 33.9, RDW 13.5, Plt Count 231, MPV 7.9, Neut % (Auto) 62.9, Lymph % (Auto) 27.9, [place] % (Auto) 6.8, Eos % (Auto) 1.7, Baso % (Auto) 0.7, Neut # (Auto) 7.3, Lymph # (Auto) 3.2, [place] # (Auto) 0.8, Eos # (Auto) 0.2, Baso # (Auto) 0.1 05/26/20 22:20: Sodium 136, Potassium 4.2, Chloride 100, Carbon Dioxide 28, Anion Gap 12.2, BUN 23 H, Creatinine 0.70, Estimated Creat Clear 47, Estimated GFR 85, Est GFR ( Amer) 103, Glucose 302 H, Calcium 9.5, Troponin I < 0.01 05/26/20 22:20: SARS-CoV-2 IgG Ab (Rapid) Positive A, SARS-CoV-2 IgM Ab (Rapid) Positive A 05/26/20 22:38: Urine Color Yellow, Urine Appearance Turbid, Urine pH 6.0, Ur Specific [place] >= 1.030, Urine Protein 1+, Urine Glucose (UA) 3+, Urine Ketones Negative, Urine Blood 1+, Urine Nitrate Positive, Urine Bilirubin Negative, Urine Urobilinogen 0.2, Ur Leukocyte Esterase Negative, Urine RBC 3-5, Urine WBC 20-50, Ur Squamous Epith Cells 5-10, Amorphous Sediment 3+, Urine Bacteria 3+ 05/26/20 23:00: Specimen Source Left radial, O2 % 3l, ABG pH 7.39, ABG pCO2 47.2 H, ABG pO2 67.4 L, ABG HCO3 27.9 H, ABG Total CO2 29.3 H, ABG O2 Saturation 94, ABG Base Excess 2.9 H, Ron Test Acceptable 05/27/20 01:39: Troponin I < 0.01 05/27/20 04:50: Troponin I < 0.01 09/19/20 04:50: WBC 14.4 H, RBC 4.17 L, Hgb 12.8, Hct 39.4, MCV 94.5, MCH 30.6, MCHC 32.3, RDW 13.2, Plt Count 232, MPV 9.7, Neut % (Auto) 87.6 H, Lymph % (Auto) 9.7 L, [place] % (Auto) 2.3, Eos % (Au
== END 2020-05-27 14:05 | disposition home or self-care (01) ==
LOC: ER 05-27 00:01 → ICU 05-27 04:24 → 2ND 05-27 04:24
PROVIDERS: Admitting Provider Internal Medicine Adolescent Medicine; Emergency Provider Emergency Medicine; PCP Internal Medicine Adolescent Medicine; Visit Provider Internal Medicine Adolescent Medicine
DX: R07.9 Chest pain, unspecified (principal); Z86.19 Personal history of other infectious and parasitic diseases; N39.0 Urinary tract infection, site not specified; E11.9 Type 2 diabetes mellitus without complications; Z79.84 Long term (current) use of oral hypoglycemic drugs; I10 Essential (primary) hypertension; E78.5 Hyperlipidemia, unspecified; Z87.891 Personal history of nicotine dependence; Z79.52 Long term (current) use of systemic steroids; Z79.82 Long term (current) use of aspirin; M06.9 Rheumatoid arthritis, unspecified; J84.10 Pulmonary fibrosis, unspecified; J45.909 Unspecified asthma, uncomplicated
CPT/HCPCS: 71046; 80048; 80061; 81001; 82803; 82962; 83735; 84484; 85007; 85025; 86328; 87086; 87088; 87186; 93005; 96365; 96367; 96375; 99285; G0378; U0003

== ENCOUNTER 2020-06-12 08:07 | Day surgery (SDC) | payer OTHER, SELFPAY ==
[2020-06-12] VITALS (12 sets, daily range): BP systolic 78–191; BP diastolic 59–99; PULSE 72–86; RESP 16–18; TEMP 36.4; O2SAT 96–99; BMI 40.4
--- NOTE | 2020-06-12 07:06 | IR_ITS ---
APPROVED REPORT Patient Location: Outpatient Tissue Coordinator: TED Arreaga RT (R) PROCEDURES Left heart catheterization Left ventriculogram Selective coronary angiogram INDICATION Known coronary artery disease, Recurrent angina pectoris Informed consent was obtained prior to the procedure. COMPLICATIONS None Estimated Blood Loss: less than 10ml TECHNIQUE One percent lidocaine used to anesthetize the right anterior aspect of the wrist. The right radial artery was accessed via the Seldinger technique. A 6 Bahraini sheath was placed in the right radial artery. 2.5 mg of verapamil, 800 mcg of nitroglycerin, 1mg Lidocaine and 5000 U Heparin were given through the arterial sheath. The Celestine catheter was also used to perform left heart catheterization, left ventriculogram and selective coronary angiogram. At the end of the procedure the sheath was removed good hemostasis was achieved using Traclet band, patient was transferred to the postop holding area in stable condition. ANGIOGRAPHIC RESULTS The left main artery Normal The left anterior descending artery Has a proximal concentric 20% stenosis with remaining vessel normal. This is a large LAD which wraps the apex The circumflex artery Is a codominant vessel and has proximal 10 to 20% stenosis with a 40 to 50% stenosis in the proximal 2.5 mm first obtuse marginal artery. The right coronary artery Codominant and has a proximal 30 to 40% concentric stenosis The CASTILLO ventriculogram reveals Normal 65% The left ventricular end-diastolic pressure 20 mmHg IMPRESSION Coronary artery disease as described above Normal ejection fraction Evaded LVEDP PLAN 1. While it is possible the first obtuse marginal artery could be producing angina pectoris patient is not on any antianginal medications. I recommend maximizing antianginal medications which will almost certainly alleviate any angina stemming from the first obtuse marginal artery. 2. If patient continues with recalcitrant angina despite maximal medical therapy only then would I consider revascularizing the first obtuse marginal artery. 3. Aggressive risk factor modification 4. LDL goal less than 55% Electronically signed by : Sincere Valencia, 06/12/2020 10:37:36
--- NOTE | 2020-06-12 08:16 | CA_ITS ---
APPROVED REPORT EXAM: Comprehensive 2D, Doppler, and color-flow Echocardiogram Cover Assembler: Vanessa Ferrari RT(R) Ht: 5 ft 3 in Wt: 228lbs BSA: 2.04 BP: 125/68 mmHg Indications: ANGINA,COPD,MURMUR,PALPS,FATIGUE,OBESITY,SOA,O2 DEPENDENT,HTN,HLD,DM 2D Dimensions LVOT 1.32 cm (M/F) 1.5-2.5 M-Mode Dimensions RVDd 2.94 cm (0.9-2.6) LVDd 4.71 cm (3.5-5.7) LVDs 3.26 cm (3.5-5.7) IVSd 0.36 cm (0.6-1.1) PWd 1.01 cm (0.6-1.1) EF (Teich) 58.40% FS 30.80% EDV (Teich) 102.90 mL ESV (Teich) 42.80 mL LV Diastology E/A Ratio 0.85 Aortic Valve LVOT Max 153.00 (70-110 cm/s) LVOT VTI 37.82 cm Mitral Valve MV A Velocity 92.00 (40-130 cm/s) Left Ventricle Left atrium is mildly enlarged, left ventricle is normal size, mild concentric left ventricular hypertrophy, visually estimated ejection fraction 55% with no regional wall motion abnormality, grade 1 diastolic dysfunction seen without tissue Doppler evidence of raise left atrial pressure. Right Ventricle Right atrium and right ventricular mildly enlarged with normal contractility. Aortic Valve Aortic valve is thickened and calcified without significant aortic stenosis or aortic insufficiency. Mitral Valve Mitral valve is grossly normal, there is mild mitral regurgitation. Tricuspid Valve Tricuspid valve is grossly normal, there is mild tricuspid regurgitation, tricuspid regurgitation jet velocity is inadequate for calculation of the right ventricular systolic pressure. Pulmonic Valve Pulmonic valve is poorly visualized. Great Vessels Aortic root is normal size. Pericardium No significant pericardial effusion noted. Conclusion 1. Mild biatrial enlargement, normal left ventricular size, mild concentric left ventricular hypertrophy, visually estimated ejection fraction 55% with no regional wall motion abnormality, grade 1 diastolic dysfunction seen without tissue Doppler evidence of raise left atrial pressure. 2. Mildly enlarged right ventricle with normal contractility. 3. Thickened and calcified aortic valve without Doppler evidence of aortic stenosis or aortic insufficiency. 4. Mild mitral and tricuspid regurgitation. 5. No significant pericardial effusion noted. Electronically signed by : Porfirio Collado, 06/12/2020 21:08:04
--- NOTE | 2020-06-12 08:16 | CA_ITS ---
APPROVED REPORT Tour Coordinator: Shannan Bryan RVT Laterality: Bilateral Study Quality: Adequate Indications: bilateral carotid bruits Risk Factors Hyperlipidemia Diabetes Smoking Doppler Spectral Velocity Analysis ECA (R) 73.80/10.30 cm/s ECA (L) 55.70/9.00 cm/s dICA (R) 110.20/34.20 cm/s dICA (L) 110.80/39.70 cm/s Herminio (R) 90.20/28.30 cm/s Herminio (L) 85.00/31.30 cm/s pICA (R) 92.90/27.50 cm/s pICA (L) 86.10/34.70 cm/s dCCA (R) 80.30/21.20 cm/s dCCA (L) 83.80/18.70 cm/s pCCA (R) 98.90/18.00 cm/s pCCA (L) 127.20/30.70 cm/s Vert (R) 32.70/3.90 cm/s Vert (L) 49.80/22.20 cm/s ICA/CCA 1.37 ICA/CCA 1.32 Findings Study suggests less than 20% stenosis of the right internal cartoid artery. Study suggests less than 20% stenosis of the left internal cartoid artery. Antegrade flow seen bilateral vertebral arteries. Conclusion Study suggests less than 20% stenosis of the right internal cartoid artery. Study suggests less than 20% stenosis of the left internal cartoid artery. Antegrade flow seen bilateral vertebral arteries. Electronically signed by : Ron Edmondson MD 06/12/2020 17:22:42
[2020-06-12 09:38] LABS: Basophils # 0.1 K/mm3 (0-0.2); Basophils % 0.6 % (0.1-2.0); Eosinophils # 0.4 K/mm3 (0.0-0.4); Eosinophils % 2.7 % (0.1-12.0); Hematocrit 38.7 % (37.0-47.0); Hemoglobin 12.7 g/dL (12.2-16.2); Lymphocytes # 4.3 K/mm3 (0.7-4.5); Lymphocytes % 31.4 % (10-50); Mean Corpuscular HGB Conc 32.9 g/dL (31.8-35.4); Mean Corpuscular Volume 91.1 fl (81-99); Mean Platelet Volume 8.3 fl (7.4-10.4); Neutrophils % 58.3 % (37.0-80.0); Platelet Count 400 K/mm3 (142-424); Red Blood Count 4.25 M/mm3 (4.20-5.40); Red Cell Distribution Width 12.7 % (11.5-17.5); White Blood Count 13.7 K/mm3 (4.8-10.8)
[2020-06-12 09:45] LABS: Chloride 101 mmol/L (98-107); Sodium 139 mmol/L (136-145)
[2020-06-12 09:46] LABS: Potassium 3.8 mmoL/L (3.5-5.1)
[2020-06-12 09:49] LABS: Anion Gap 11.8 mEq/L (5-15); Blood Urea Nitrogen 21 mg/dl (7-17); Calcium 9.7 mg/dl (8.4-10.2); Carbon Dioxide 30 mmol/L (22.0-30.0); Creatinine Clearance Estimated 96 mL/min (50-200); Estimated Glomerular Filt Rate 85 ml/min (>60); GFR (African American) 103 ML/MIN (>60); Glucose 169 mg/dl (74-100)
[2020-06-12 10:17] LABS: Coronavirus 19 IgG Antibody Positive (Negative); Coronavirus 19 IgM Antibody Positive (Negative)
== END 2020-06-12 13:31 | disposition home or self-care (01) ==
LOC: CATHLAB 08:08
PROVIDERS: PCP Internal Medicine Adolescent Medicine; Visit Provider Internal Medicine
DX: I25.110 Atherosclerotic heart disease of native coronary artery with unstable angina pectoris (principal); J44.9 Chronic obstructive pulmonary disease, unspecified; K21.9 Gastro-esophageal reflux disease without esophagitis; R01.1 Cardiac murmur, unspecified; R06.00 Dyspnea, unspecified; Z99.81 Dependence on supplemental oxygen; E11.9 Type 2 diabetes mellitus without complications; Z79.4 Long term (current) use of insulin; Z88.2 Allergy status to sulfonamides; Z88.8 Allergy status to other drugs, medicaments and biological substances; Z87.891 Personal history of nicotine dependence
CPT/HCPCS: 80048; 85025; 86328; 93306; 93458; 93880; 99152; C1725; C1769; J1644; Q9967; U0003

== ENCOUNTER → 2020-06-27 11:42 | Outpatient (CLI) | payer OTHER, SELFPAY ==
[2020-06-27 12:32] LABS: Basophils # 0.1 K/mm3 (0-0.2); Basophils % 0.5 % (0.1-2.0); Eosinophils # 0.5 K/mm3 (0.0-0.4); Eosinophils % 4.1 % (0.1-12.0); Hematocrit 40.9 % (37.0-47.0); Hemoglobin 12.8 g/dL (12.2-16.2); Lymphocytes # 3.9 K/mm3 (0.7-4.5); Lymphocytes % 30.3 % (10-50); Mean Corpuscular HGB Conc 31.2 g/dL (31.8-35.4); Mean Corpuscular Hemoglobin 28.4 pg (27.0-31.2); Mean Platelet Volume 8.2 fl (7.4-10.4); Monocytes # 0.9 K/mm3 (0.1-1.0); Neutrophils # 7.4 K/mm3 (1.8-7.8); Neutrophils % 58.1 % (37.0-80.0); Platelet Count 457 K/mm3 (142-424); Red Cell Distribution Width 12.8 % (11.5-17.5); White Blood Count 12.7 K/mm3 (4.8-10.8)
[2020-06-27 13:15] LABS: Chloride 97 mmol/L (98-107); Potassium 4.6 mmoL/L (3.5-5.1); Sodium 133 mmol/L (136-145)
[2020-06-27 13:18] LABS: Alanine Aminotransferase 19 U/L (12-78); Albumin Level 3.7 g/dl (3.5-5.0); Alkaline Phosphatase 85 U/L (38-126); Anion Gap 12.6 mEq/L (5-15); Aspartate Amino Transferase 18 U/L (14-36); Bilirubin,Total 0.3 mg/dl (0.2-1.3); Blood Urea Nitrogen 17 mg/dl (7-17); Carbon Dioxide 28 mmol/L (22.0-30.0); Cholesterol 143 mg/dl (140-200); Estimated Glomerular Filt Rate 85 ml/min (>60); GFR (African American) 103 ML/MIN (>60); Globulin 3.6 g/dL (1.3-3.2); Hemoglobin A1C 9.4 % (4.0-6.0); Total Protein,Serum 7.3 g/dl (6.3-8.2); Triglycerides 138 mg/dl (30-150); VLDL Cholesterol 28 mg/dL (0-40)
[2020-06-27 13:19] LABS: Calcium 9.4 mg/dl (8.4-10.2)
[2020-06-27 13:26] LABS: Glucose 454 mg/dl (74-100)
[2020-06-27 13:30] LABS: Direct LDL Cholesterol 80.26 mg/dL (100-129)
[2020-06-27 15:26] LABS: Chol/HDL Ratio 3.3 (1-3.5); HDL Cholesterol 44 mg/dl (40-60)
== END ==
PROVIDERS: Visit Provider Internal Medicine Adolescent Medicine
DX: E11.9 Type 2 diabetes mellitus without complications (principal); I10 Essential (primary) hypertension; Z79.4 Long term (current) use of insulin
CPT/HCPCS: 36415; 80053; 80061; 83036; 85025

== ENCOUNTER 2020-07-12 08:20 | Outpatient (CLI) | payer OTHER, SELFPAY ==
[2020-07-12] VITALS (19 sets, daily range): BP systolic 128–187; BP diastolic 67–98; PULSE 75–93; RESP 18–20; TEMP 35.9–36.3; O2SAT 92–100; BMI 43.9
== END 2020-07-12 14:25 | disposition home or self-care (01) ==
LOC: INF 08:27
PROVIDERS: Visit Provider Internal Medicine
DX: M06.9 Rheumatoid arthritis, unspecified (principal); J84.9 Interstitial pulmonary disease, unspecified; Z51.81 Encounter for therapeutic drug level monitoring
CPT/HCPCS: 96413; 96415; J9312

== ENCOUNTER 2020-07-26 08:20 | Outpatient (CLI) | payer OTHER, SELFPAY ==
[2020-07-26] VITALS (15 sets, daily range): BP systolic 118–170; BP diastolic 59–86; PULSE 81–100; RESP 18–22; TEMP 36.8; O2SAT 98; BMI 43.9
[2020-07-26 09:37] LABS: Basophils # 0.1 K/mm3 (0-0.2); Basophils % 0.5 % (0.1-2.0); Eosinophils # 0.3 K/mm3 (0.0-0.4); Eosinophils % 1.5 % (0.1-12.0); Hematocrit 40.9 % (37.0-47.0); Hemoglobin 13.1 g/dL (12.2-16.2); Lymphocytes % 15.5 % (10-50); Mean Corpuscular HGB Conc 31.9 g/dL (31.8-35.4); Mean Corpuscular Hemoglobin 28.3 pg (27.0-31.2); Mean Corpuscular Volume 88.9 fl (81-99); Mean Platelet Volume 8.5 fl (7.4-10.4); Monocytes # 0.8 K/mm3 (0.1-1.0); Monocytes % 4.1 % (1.7-9.3); Neutrophils % 78.4 % (37.0-80.0); Platelet Count 376 K/mm3 (142-424); Red Blood Count 4.61 M/mm3 (4.20-5.40); Red Cell Distribution Width 13.1 % (11.5-17.5); White Blood Count 19.1 K/mm3 (4.8-10.8)
[2020-07-26 09:42] LABS: MANUAL DIFFERENTIAL MANUAL DIFFERENTIAL (MANUAL DIFF)
[2020-07-26 10:02] LABS: Lymphocytes % 20 % (10-50); Monocytes % 6 % (2-9); Neutrophils % 72 % (42-76); Total Cells Counted 100
[2020-07-26 10:03] LABS: Platelet Estimate Normal; RBC Morphology Normal
== END 2020-07-26 14:15 | disposition home or self-care (01) ==
LOC: INF 08:21
PROVIDERS: Visit Provider Internal Medicine
DX: M06.9 Rheumatoid arthritis, unspecified (principal); J84.9 Interstitial pulmonary disease, unspecified; Z51.81 Encounter for therapeutic drug level monitoring
CPT/HCPCS: 36415; 85007; 85025; 96413; 96415; J9312

== ENCOUNTER → 2020-10-13 10:20 | Outpatient (CLI) | payer OTHER, SELFPAY ==
[2020-10-13 11:33] LABS: Alanine Aminotransferase 25 U/L (12-78); Albumin Level 3.9 g/dl (3.5-5.0); Alkaline Phosphatase 127 U/L (38-126); Anion Gap 9.4 mEq/L (5-15); Aspartate Amino Transferase 19 U/L (14-36); Bilirubin,Total 0.4 mg/dl (0.2-1.3); Blood Urea Nitrogen 15 mg/dl (7-17); Carbon Dioxide 30 mmol/L (22.0-30.0); Chloride 95 mmol/L (98-107); Estimated Glomerular Filt Rate 125 ml/min (>60); GFR (African American) 151 ML/MIN (>60); Globulin 3.8 g/dL (1.3-3.2); Potassium 4.4 mmoL/L (3.5-5.1); Sodium 130 mmol/L (136-145); Total Protein,Serum 7.7 g/dl (6.3-8.2)
[2020-10-13 11:44] LABS: Glucose 573 mg/dl (74-100)
[2020-10-13 11:46] LABS: Hemoglobin A1C > 14.0 % (4.0-6.0)
== END ==
PROVIDERS: Visit Provider Internal Medicine Adolescent Medicine
DX: E11.9 Type 2 diabetes mellitus without complications (principal); Z79.4 Long term (current) use of insulin
CPT/HCPCS: 36415; 80053; 83036

== ENCOUNTER 2020-10-20 14:47 | Outpatient (RCR) | payer OTHER, SELFPAY | END 2020-12-20 09:41 | disposition home or self-care (01) | LOC: PT 14:47 | DX: J84.9 Interstitial pulmonary disease, unspecified (principal) | CPT/HCPCS: G0237; G0238 ==

== ENCOUNTER 2021-01-10 23:09 | Observation (INO) | payer OTHER, SELFPAY ==
--- NOTE | 2021-01-10 23:05 | ECG_ITS ---
APPROVED REPORT Exam: Resting ECG HR:96 bpm ECG Measurements Heart Rate 96 AXES SD 162 P 58 QRSd 76 QRS 5 QT 350 T 49 QTc 442 Conclusion Poor data quality, interpretation may be adversely affected Normal sinus rhythm Normal ECG Electronically signed by : Eben Liu, 01/12/2021 15:03:20
[2021-01-10 23:10] VITALS: BP 178/86; PULSE 100; RESP 22; TEMP 36.8; O2SAT 98; BMI 42.5
--- NOTE | 2021-01-10 23:24 | XR_ITS ---
PROCEDURE INFORMATION: Exam: XR Chest Exam date and time: 01/10/2021 11:24 PM Age: 60 years old Clinical indication: Patient HX: Chest pain. Chronic cough. PT also stated she has interstitial lung disease TECHNIQUE: Imaging protocol: XR of the chest. Views: 2 views. COMPARISON: CR XR CHEST 2V 05/26/2020 10:21 PM FINDINGS: Lungs: Moderate diffuse interstitial and alveolar opacities, similar in appearance to previous examination. Pleural spaces: No significant pleural effusion. No pneumothorax. Heart/Mediastinum: No cardiomegaly. Bones/joints: No displaced fracture. Soft tissues: Unremarkable. IMPRESSION: No significant interval change.
[2021-01-10 23:37] LABS: Basophils # 0.1 K/mm3 (0-0.2); Basophils % 0.4 % (0.1-2.0); Eosinophils # 0.5 K/mm3 (0.0-0.4); Eosinophils % 2.2 % (0.1-12.0); Hematocrit 33.9 % (37.0-47.0); Hemoglobin 10.6 g/dL (12.2-16.2); Lymphocytes # 4.3 K/mm3 (0.7-4.5); Lymphocytes % 18.4 % (10-50); Mean Corpuscular HGB Conc 31.1 g/dL (31.8-35.4); Mean Corpuscular Hemoglobin 26.3 pg (27.0-31.2); Mean Corpuscular Volume 84.6 fl (81-99); Mean Platelet Volume 7.6 fl (7.4-10.4); Monocytes % 4.4 % (1.7-9.3); Neutrophils # 17.6 K/mm3 (1.8-7.8); Neutrophils % 74.6 % (37.0-80.0); Platelet Count 447 K/mm3 (142-424); Red Blood Count 4.01 M/mm3 (4.20-5.40); White Blood Count 23.6 K/mm3 (4.8-10.8)
[2021-01-10 23:44] LABS: Alanine Aminotransferase 25 U/L (12-78); Albumin Level 3.7 g/dl (3.5-5.0); Alkaline Phosphatase 111 U/L (38-126); Anion Gap 10.1 mEq/L (5-15); Aspartate Amino Transferase 22 U/L (14-36); Bilirubin,Direct 0.3 mg/dl (0.0-0.4); Bilirubin,Total 0.3 mg/dl (0.2-1.3); Bilirubin,Unconjugated 0.1 mg/dL (0.0-1.1); Blood Urea Nitrogen 16 mg/dl (7-17); Calcium 9.1 mg/dl (8.4-10.2); Carbon Dioxide 27 mmol/L (22.0-30.0); Chloride 98 mmol/L (98-107); Creatinine Clearance Estimated 48 mL/min (50-200); Estimated Glomerular Filt Rate 101 ml/min (>60); GFR (African American) 123 ML/MIN (>60); Glucose 345 mg/dl (74-100); Potassium 4.1 mmoL/L (3.5-5.1); Sodium 131 mmol/L (136-145); Total Protein,Serum 7.2 g/dl (6.3-8.2)
[2021-01-10 23:47] LABS: MANUAL DIFFERENTIAL MANUAL DIFFERENTIAL (MANUAL DIFF)
[2021-01-10 23:50] LABS: C-Reactive Protein 31.6 mg/L (0-4)
[2021-01-10 23:59] LABS: Troponin I < 0.01 ng/ml (0.00-0.034)
[2021-01-11] VITALS (10 sets, daily range): BP systolic 118–144; BP diastolic 45–77; PULSE 76–95; RESP 18–26; TEMP 36.7–37.3; O2SAT 91–100; BMI 43.7
[2021-01-11 00:03] LABS: Procalcitonin 0.056 ng/mL (0.0-2.0)
[2021-01-11 00:05] LABS: Erythrocyte Sedimentation Rate > 140 mm/hr (0-30)
[2021-01-11 00:16] LABS: Eosinophils % 2 % (0-3); Lymphocytes % 23 % (10-50); Monocytes % 1 % (2-9); Neutrophils % 74 % (42-76); Platelet Estimate Normal; Stomatocytes 1+; Total Cells Counted 100
--- NOTE | 2021-01-11 00:24 | CT_ITS ---
PROCEDURE INFORMATION: Exam: CT Chest Without Contrast; Diagnostic Exam date and time: 01/11/2021 12:24 AM Age: 60 years old Clinical indication: Chest wall pain; Patient HX: Chest pain TECHNIQUE: Imaging protocol: Diagnostic computed tomography of the chest without contrast. 3D rendering (Not supervised by radiologist): MIP and/or 3D reconstructed images were created by the technologist. Radiation optimization: All CT scans at this facility use at least one of these dose optimization techniques: automated exposure control; mA and/or kV adjustment per patient size (includes targeted exams where dose is matched to clinical indication); or iterative reconstruction. COMPARISON: CHESTW CT chest w con 03/18/2019 6:44 AM FINDINGS: Limitations: Lack of intravenous contrast. Thyroid: Subcentimeter nodule RIGHT lobe. Lungs: Mosaic pattern of lung parenchyma with scattered groundglass opacities and interlobular septal thickening, increased from previous examination. Pleural spaces: No significant pleural effusion. No pneumothorax. Heart: Borderline cardiomegaly. No significant pericardial effusion. Vasculature: Mild atherosclerotic disease. No aneurysm. Lymph nodes: Calcified mediastinal and hilar lymph nodes. Bones/joints: No acute fracture. Soft tissues: Unremarkable. Upper abdomen: See abdomen CT report for additional details. IMPRESSION: Mosaic pattern of lung parenchyma with scattered groundglass opacities and interlobular septal thickening. DDX: Interstitial edema, interstitial pneumonia, interstitial lung disease. Clinical correlation is needed. COMMENTS: Consistent with the [employer]'s Incidental Findings Committee white paper (J Am Richard Radiol 2015): In patients aged 35 years and older with an incidental thyroid nodule equal to or greater than 1.[address], MRI or extrathyroidal US, further evaluation with dedicated thyroid US is recommended for patients with normal life expectancy and without comorbidities. For smaller nodules without suspicious features, no further evaluation or follow up is recommended.
[2021-01-11 01:07] LABS: Lactic Acid 2.9 mmol/L (0.7-2.1)
--- NOTE | 2021-01-11 01:29 | PC.NURSE ---
patient is still in ct. Maddi waltres went to ct with ultrasound machine to re obtain iv.
[2021-01-11 01:37] LABS: Microscopic, Urine URINE MICROSCOPIC (MICROSCOPIC)
[2021-01-11 01:38] LABS: Appearance,Urine CLEAR (Clear); Bilirubin,Urine Negative (Negative); Blood, Urine Negative (Negative); Color,Urine YELLOW (Yellow); Glucose,Urine (UA) 2+ (Negative); Ketones,Urine Negative (Negative); Leukocyte Esterase,Urine Negative (Negative); Nitrate,Urine Negative (Negative); Protein,Urine TRACE (Negative); Specific Gravity, Urine 1.025 (1.005-1.030); Urobilinogen,Urine 0.2 EU/dl (0.2)
--- NOTE | 2021-01-11 01:43 | HMH.EDCP ---
ED Disposition Clinical Impression: Interstitial lung disease, Diabetes mellitus type 2, noninsulin dependent Chest pain Qualifiers: Chest pain type: precordial pain Qualified Code(s): R07.2 - Precordial pain Obesity Qualifiers: Obesity type: due to excess calories Obesity classification: adult class 3 (BMI >= 40) Serious obesity comorbidity presence: with serious comorbidity Body mass index: BMI 40.0-44.9 Qualified Code(s): E66.01 - Morbid (severe) obesity due to excess calories; Z68.41 - Body mass index [BMI]40.0-44.9, adult Leukocytosis (leucocytosis) Qualifiers: Leukocytosis type: unspecified Qualified Code(s): D72.829 - Elevated white blood cell count, unspecified CAD (coronary artery disease) Qualifiers: Coronary Disease-Associated Artery/Lesion type: iroquois artery [place] vs. transplanted heart: iroquois heart Associated angina: unspecified whether angina present Qualified Code(s): I25.10 - Atherosclerotic heart disease of iroquois coronary artery without angina pectoris Anemia Qualifiers: Anemia type: unspecified type Qualified Code(s): D64.9 - Anemia, unspecified Disposition: Admitted as Observation Condition on Discharge: Fair - Critical Care Critical Care Time: No Attestation: On 01/10/21, the high probability of a clinically significant, sudden or life threatening deterioration of the following system(s) required my full and direct attention, intervention and personal management. The time I documented below is in addition to time spent performing reported procedures but includes the following listed in this critical care notation. Medical Decision Making - Medical Records Medical records reviewed: Yes: I reviewed the patient's medical records. - Martin Inquiry Pt receiving controlled substance: No Vital Signs: 01/10/21 23:10 Temperature 98.2 F Temperature Source Oral Pulse Rate [Left Radial] 100 H Respiratory Rate 22 Blood Pressure [Right Arm] 178/86 H Blood Pressure Mean [Right Arm] 116 Blood Pressure Source [Right Arm] Automatic Cuff Blood Pressure Position [Right Arm] Sitting 02 Sat by Pulse Oximetry 98 Oxygen Delivery Method Nasal Cannula Oxygen Flow Rate (LPM) 2 - Lab Data Lab results reviewed: Yes: I reviewed the patient's lab results. Lab Results 01/10/21 23:30: WBC 23.6 H*, RBC 4.01 L, Hgb 10.6 L, Hct 33.9 L, MCV 84.6, MCH 26.3 L, MCHC 31.1 L, RDW 14.0, Plt Count 447 H, MPV 7.6, Neut % (Auto) 74.6, Lymph % (Auto) 18.4, [place] % (Auto) 4.4, Eos % (Auto) 2.2, Baso % (Auto) 0.4, Neut # (Auto) 17.6 H, Lymph # (Auto) 4.3, [place] # (Auto) 1.0, Eos # (Auto) 0.5 H, Baso # (Auto) 0.1, Total Counted 100, Neutrophils % (Manual) 74, Lymphocytes % (Manual) 23, Monocytes % (Manual) 1 L, Eosinophils % (Manual) 2, Platelet Estimate Normal, RBC Morphology Not Reportable, Stomatocytes 1+, ESR > 140 H 01/10/21 23:30: Sodium 131 L, Potassium 4.1, Chloride 98, Carbon Dioxide 27, Anion Gap 10.1, BUN 16, Creatinine 0.60, Estimated Creat Clear 48, Estimated GFR 101, Est GFR ( Amer) 123, Glucose 345 H, Calcium 9.1, Total Bilirubin 0.3, Direct Bilirubin 0.3, Conjugated Bilirubin 0.0, Indirect Bilirubin 0.0, Unconjugated Bilirubin 0.1, AST 22, ALT 25, Alkaline Phosphatase 111, Troponin I < 0.01, C-Reactive Protein 31.6 H, Total Protein 7.2, Albumin 3.7, Procalcitonin 0.056 01/11/21 00:00: Amylase 50, Lipase 100 01/11/21 00:00: Acetone Level None detected 01/11/21 00:10: Urine Color Yellow, Urine Appearance Clear, Urine pH 6.0, Ur Specific [place] 1.025, Urine Protein Trace, Urine Glucose (UA) 2+, Urine Ketones Negative, Urine Blood Negative, Urine Nitrate Negative, Urine Bilirubin Negative, Urine Urobilinogen 0.2, Ur Leukocyte Esterase Negative, Urine WBC 3-5, Ur Squamous Epith Cells 5-10, Urine Bacteria 1+ 01/11/21 00:20: Lactate 2.9 H Result diagrams: 01/10/21 23:30 01/10/21 23:30 Orders (Tests/Meds): ED MEDICATIONS Generic Name Dose Route Start Last Admin Trade Name Freq PRN Reason Stop Dose Admin
--- NOTE | 2021-01-11 01:46 | CT_ITS ---
PROCEDURE INFORMATION: Exam: CT Abdomen And Pelvis Without Contrast Exam date and time: 01/11/2021 1:46 AM Age: 60 years old Clinical indication: Abdominal pain; Generalized; Patient HX: Abd pain nausea TECHNIQUE: Imaging protocol: Computed tomography of the abdomen and pelvis without contrast. Radiation optimization: All CT scans at this facility use at least one of these dose optimization techniques: automated exposure control; mA and/or kV adjustment per patient size (includes targeted exams where dose is matched to clinical indication); or iterative reconstruction. COMPARISON: ABDPELW/O CT ABD PELVIS W/O CONTRAST 05/04/2015 11:49 PM FINDINGS: Limitations: Lack of intravenous contrast. Lower thorax: See chest CT report for additional details. Liver: Unremarkable. Gallbladder and bile ducts: No calcified stones. No ductal dilation. Pancreas: Unremarkable. No ductal dilation. Spleen: Few calcifications. No splenomegaly. Adrenal glands: No mass. Kidneys and ureters: No definite renal calculi. No significant hydronephrosis. Contrast within renal collecting system. Stomach and bowel: No definite mural thickening. No obstruction. Appendix: No findings to suggest appendicitis. Intraperitoneal space: No significant fluid collection. No definite free air. Vasculature: [id number] atherosclerotic disease. No aneurysm. Lymph nodes: No pathologically enlarged lymph nodes. Urinary bladder: Contrast within bladder. Reproductive: Hysterectomy. Bones/joints: No acute fracture. Soft tissues: Tiny umbilical hernia containing fat. IMPRESSION: No definite acute intraabdominal abnormality.
[2021-01-11 01:55] LABS: Bacteria,Urine 1+ /lpf
[2021-01-11 01:59] LABS: Acetone, Serum (Rapid) None Detected (None Detect)
[2021-01-11 02:00] LABS: Amylase 50 U/L (30-110); Lipase 100 U/L (23-300)
[2021-01-11 03:07] LABS: Troponin I < 0.01 ng/ml (0.00-0.034)
--- NOTE | 2021-01-11 04:20 | PC.NURSE ---
PT ARRIVED TO FLOOR VIA W/C FRO, ED W/STAFF AT 0420
[2021-01-11 04:26] LABS: Reflex Lactic Add Lactic Reflex
[2021-01-11 05:12] LABS: POC Glucose,Bedside 324 (70-110)
--- NOTE | 2021-01-11 06:33 | PC.NURSE ---
Fabiola GARG NOTIFIED OF CONSULT.
[2021-01-11 06:54] LABS: Basophils # 0.1 K/mm3 (0-0.2); Basophils % 0.2 % (0.1-2.0); Eosinophils # 0.1 K/mm3 (0.0-0.4); Eosinophils % 0.2 % (0.1-12.0); Hematocrit 30.8 % (37.0-47.0); Hemoglobin 9.9 g/dL (12.2-16.2); Lymphocytes # 2.3 K/mm3 (0.7-4.5); Lymphocytes % 9.9 % (10-50); Mean Corpuscular Volume 84.3 fl (81-99); Mean Platelet Volume 8.3 fl (7.4-10.4); Monocytes # 0.8 K/mm3 (0.1-1.0); Monocytes % 3.5 % (1.7-9.3); Neutrophils # 19.8 K/mm3 (1.8-7.8); Neutrophils % 86.2 % (37.0-80.0); Platelet Count 415 K/mm3 (142-424); Red Blood Count 3.65 M/mm3 (4.20-5.40)
[2021-01-11 07:02] LABS: Lactic Acid Follow Up (RFLX 1) 1.8 mmol/L (0.7-2.1)
[2021-01-11 07:09] LABS: Anion Gap 10.5 mEq/L (5-15); Blood Urea Nitrogen 15 mg/dl (7-17); Calcium 8.8 mg/dl (8.4-10.2); Carbon Dioxide 26 mmol/L (22.0-30.0); Chloride 99 mmol/L (98-107); Creatinine Clearance Estimated 48 mL/min (50-200); Estimated Glomerular Filt Rate 125 ml/min (>60); GFR (African American) 151 ML/MIN (>60); Glucose 305 mg/dl (74-100); Magnesium 1.3 mg/dl (1.6-2.3); Potassium 4.5 mmoL/L (3.5-5.1); Sodium 131 mmol/L (136-145)
[2021-01-11 07:17] LABS: Troponin I < 0.01 ng/ml (0.00-0.034)
--- NOTE | 2021-01-11 07:53 | HMH.HP ---
*Admission Date: 01/11/21 *Chief complaint: Chest pressure and pain with epigastric pain *History of present illness: 60-year-old white female who is significantly debilitated from multiple medical problems including interstitial lung disease, chronic rheumatoid arthritis and is on chronic steroids. She has extremely poor functional status, is afflicted with morbid obesity and is on chronic oxygen. She came to the emergency department late yesterday evening because of upper chest pressure, describes some chest pain and upper abdominal pain. Work-up in the ER was fairly intensive and included she CT scan of chest, CT scan of abdomen and pelvis and labs which were fairly unrevealing except for her chronic anemia-of chronic disease and stable, and leukocytosis which has been present since has been on steroids for her rheumatoid arthritis. Admitted to hospital for evaluation of this chest pressure, echocardiogram and cardiology consultation. [facility] History I have reviewed the patient's past medical history: Yes Medical History: Reports:: Asthma, Chronic Obstructive Pulmonary Disease (COPD), Coronary Artery Disease, Diabetes Mellitus Type 2, Heart Murmur, Hyperlipidemia, Hypertension, Palpitations Denies:: Cancer, Diabetes Mellitus Type 1, Internal Pacemaker, MRSA, Seizures *Have you ever received a pneumonia vaccine?: Yes *Have you received a flu vaccine this season?: No Other Medical History: Reports: Arthritis (RA), Sinus Problems, Other Other Surgeries: Yes: Appendectomy, Cardiac Catheterization, Hysterectomy-Total, Tubal Ligation. No: Pacemaker Amputation: No Fractures: No - *Social History Smoking Status: Former smoker Tobacco Type: cigarettes Alcohol Intake: never *Occupational Status:: retired Housing: house Household Members: spouse, family *Travel in the last 8 weeks: None Family Hx:: Bleeding Disorder, Cancer, Diabetes, Heart Attack, Hyperlipidemia, Hypertension, Kidney Disease, Substance abuse Review of Systems - Review of Systems Review of systems:: pertinent systems reviewed and negative unless documented below Patient continues to have chronic dyspnea but at baseline. Chest pain which has resolved as noted above, no new GI, , skin or other symptoms. - *Neurologic Denies headache(s), Denies seizure-like activity Meds Home Medications Medication Instructions Recorded Confirmed Type Metformin HCl [Glucophage 500mg 1,000 mg PO BID 10/05/17 01/11/21 History Tablet] Inhaler, Assist Devices [Space 1 each MC Q6H PRN #1 spacer 03/18/19 01/10/21 Rx Chamber Plus] Aspirin [Aspir 81] 81 mg PO DAILY 10/29/19 01/11/21 History insulin glargine 100 unit/mL (3 40 unit SQ DAILY ml 06/02/20 01/11/21 History mL) subcutaneous pen Metoprolol Succinate [Metoprolol 25 mg PO DAILY 06/12/20 01/11/21 History Succinate 25mg Tablet*] Spironolactone [Spironolactone 25 mg PO DAILY 06/12/20 01/11/21 History 25mg Tablet] Insulin Lispro [Humalog Kwikpen 10 unit SQ DAILY 07/12/20 01/10/21 History U-100] Losartan Potassium [Cozaar 25mg 25 mg PO DAILY 07/12/20 01/11/21 History Tablets] mycophenolate mofetiL 1,500 mg PO BID 07/12/20 01/11/21 History [Mycophenolate Mofetil] predniSONE [Deltasone 10mg 5 mg PO DAILY 07/12/20 01/11/21 History tablet] omeprazole 40 mg capsule,delayed 40 mg PO DAILY #90 cap 09/26/20 01/11/21 Rx release Atorvastatin Calcium [Lipitor 40mg 40 mg PO DAILY 01/10/21 01/11/21 History Tab] Albuterol Sulfate [Albuterol 2.5 mg IH DAILYP PRN 01/11/21 01/11/21 History 0.083% 2.5mg/3mL neb] Famotidine [Pepcid] 40 mg PO HS 01/11/21 01/11/21 History Isosorbide Mononitrate [Isosorbide 30 mg PO DAILY 01/11/21 01/11/21 History Mononitrate ER] Allergies Allergy/AdvReac Type Severity Reaction Status Date / Time leflunomide [From ARAVA] Allergy Severe I-RASH Verified 01/11/21 04:24 Penicillins [PENICILLINS] Allergy Intermediate Verified 01/11/21 04:24 Sulfa (Sulfonamid
--- NOTE | 2021-01-11 07:54 | P.CONPHA_ITS ---
[facility] Pharmacy VTE Monitoring - Patient Demographics Admission date: 01/11/21 Report Date: 01/11/21 Time: 07:54 Allergies/Adverse Reactions: Patient Allergies leflunomide [From ARAVA] Allergy (Severe, Verified 01/11/21 04:24) I-RASH Penicillins [PENICILLINS] Allergy (Intermediate, Verified 01/11/21 04:24) Sulfa (Sulfonamide Antibiotics) [SULFA (SULFONAMIDE ANTIBIOTICS)] Allergy (Unknown, Verified 01/11/21 04:24) Height: 1.6 m Weight: 112.037 kg Patient Problems: Current Active Problems Leukocytosis (leucocytosis) (Acute) Anemia (Acute) CAD (coronary artery disease) (Acute) Interstitial lung disease (Chronic) Diabetes mellitus type 2, noninsulin dependent (Chronic) Obesity (Chronic) Chest pain (Acute) - VTE Risk Labs: VTE Related Lab Results Hgb 9.9 g/dL (12.2-16.2) L 01/11/21 05:41 Hct 30.8 % (37.0-47.0) L 01/11/21 05:41 Plt Count 415 K/mm3 (142-424) 01/11/21 05:41 BUN 15 mg/dl (7-17) 01/11/21 05:41 Creatinine 0.50 mg/dl (0.52-1.04) L 01/11/21 05:41 Estimated Creat Clear 48 mL/min (50-200) 01/11/21 05:41 VTE Score: 6 VTE Risk Level: Moderate Risk - Prophylaxis VTE Prophylaxis Ordered?: Yes Types of VTE Prophylaxis: TEDS Knee High Location of Applied Device: Bilateral Lower Extremeties
--- NOTE | 2021-01-11 08:00 | US_ITS ---
PROCEDURE: US GALLBLADDER CLINICAL INDICATION: abd pain Chest pain COMPARISON: No exams were available for comparison FINDINGS: Pancreas: Unremarkable/Not well seen Liver: Unremarkable. There is appropriate direction of blood flow within a non dilated portal vein. Right kidney: Unremarkable appearing. No hydronephrosis. Gallbladder: No stones are evident. There is no gallbladder wall thickening. Common duct is normal in diameter. IMPRESSION: Negative gallbladder ultrasound. No stones evident. Dictated by: Ron Edmondson MD 01/11/2021 11:03 Ron Edmondson MD in OV 01/11/2021 11:03
--- NOTE | 2021-01-11 08:00 | CA_ITS ---
APPROVED REPORT EXAM: Comprehensive 2D, Doppler, and color-flow Echocardiogram Student Life Dean: Jana Dugan CRT Ht: 5 ft 3 in Wt: 240lbs BSA: 2.09 BP: 178/86 mmHg Indications: COPD, Murmur, Diabetes, Obesity, Hyperlipidemia, Hypertension/HDD, home o2 2D Dimensions LVOT 1.94 cm (M/F) 1.5-2.5 LA Volume 74.80 mL LA Volume Index 35.78 mL/m2 (M/F) 16-34 M-Mode Dimensions RVDd 2.50 cm (0.9-2.6) LA Diam 4.42 cm (1.9-4.0) LVDd 4.17 cm (3.5-5.7) Ao Diam 3.05 cm (2.0-3.7) LVDs 2.73 cm (3.5-5.7) IVSd 1.48 cm (0.6-1.1) PWd 0.64 cm (0.6-1.1) EF (Teich) 64.00% FS 34.50% EDV (Teich) 77.30 mL TAPSE 2.76 (<1.7) ESV (Teich) 27.80 mL LV Diastology E Decel Time 217.00 (160-240 msec) E/A Ratio 1.23 MED E' 8.40 (< 7 cm/sec) MED A' 12.90 cm/s E'/MED E' Ratio 16.73 (>14) LAT E' 9.40 (<10 cm/sec) LAT A' 11.60 cm/s E/LAT E' Ratio 14.95 (>14) Aortic Valve LVOT Max 184.00 (70-110 cm/s) LVOT VTI 41.31 cm AoV Peak Faustino. 203.00 (50-130 cm/s) AO Peak GR. 16.50 mmHg AO Mean GR. 8.30 (<5 mmHg) AO VTI 38.18 (18-25 cm) ASHOK (VTI) 3.20 (2.5-4.5 cm2) Mitral Valve MV E Max Faustino. 140.00 (40-130 cm/s) MV A Velocity 115.00 (40-130 cm/s) E/A Ratio 1.23 MV Decel. Time 217.00 (160-240 ms) MV PHT 63.00 ms Pulmonary Valve PV Peak Velocity 84.00 (50-150 cm/s) Tricuspid Valve TR P. Velocity 192.00 cm/s RAP Estimate 10.00 mmHg RVSP 24.70 mmHg Left Ventricle Left atrium is mildly enlarged, left ventricle is normal size, mild concentric left ventricular hypertrophy, visually estimated ejection fraction 55% with no regional wall motion abnormality. Grade 1 diastolic dysfunction seen without tissue Doppler evidence of raise left atrial pressure. Right Ventricle Right atrium and right ventricle qualitatively mildly enlarged with normal contractility. Aortic Valve Aortic valve is minimally thickened and fibrosed. There is no significant aortic stenosis or aortic insufficiency. Mitral Valve Mitral valve leaflets are minimally thickened, there is mild mitral regurgitation. Tricuspid Valve Tricuspid grossly normal, there is mild tricuspid regurgitation, tricuspid regurgitation jet velocity is inadequate for calculation of the right ventricular systolic pressure. Pulmonic Valve Pulmonic valve is poorly visualized. Great Vessels Aortic root is normal size. Pericardium No significant pericardial effusion noted. Conclusion 1. Mildly enlarged left atrium, normal left ventricular size, mild concentric left ventricular hypertrophy, visually estimated ejection fraction 55% with no regional wall motion abnormality, grade 1 diastolic dysfunction seen without tissue Doppler evidence of raise left atrial pressure. 2. Mildly enlarged right ventricle with normal contractility. 3. Thickened and calcified aortic valve without aortic stenosis or aortic insufficiency. 4. Mild mitral and tricuspid regurgitation. 5. No significant pericardial effusion noted. Electronically signed by : Porfirio Collado, 01/11/2021 16:50:36
--- NOTE | 2021-01-11 08:28 | HMH.PHAINT ---
HOME MEDICATION CLARIFICATION COMPLETED USING LIST FROM OUTPATIENT PHARMACY AND WITH PATIENT.
--- NOTE | 2021-01-11 09:33 | HMH.CNCARD ---
History of Present Illness Consult date: 01/11/21 Requesting physician: Eben Liu Consult reason: chest pain Chief complaint: chest pain Additional Medical History:: 1. Diabetes mellitus, insulin treated 2. Ex-smoker, stopped more than [address] of chest, 01/2021, Mosaic pattern of lung parenchyma with scattered groundglass opacities and interlobular septal thickening. DDX: Interstitial edema, interstitial pneumonia, interstitial lung disease. Clinical correlation is needed B. Oxygen requiring COPD 3. Hypertension A. Echocardiogram, 06/2020,1. Mild biatrial enlargement, normal left ventricular size, mild concentric left ventricular hypertrophy, visually estimated ejection fraction 55% with no regional wall motion abnormality, grade 1 diastolic dysfunction seen without tissue Doppler evidence of raise left atrial pressure. 2. Mildly enlarged right ventricle with normal contractility. 3. Thickened and calcified aortic valve without Doppler evidence of aortic stenosis or aortic insufficiency. 4. Mild mitral and tricuspid regurgitation. 5. No significant pericardial effusion noted. Electronically signed by : Porfirio Collado, 06/12/2020 21:08:04 4. Family history of coronary artery disease in both grandparents 5. Hyperlipidemia 6. Rheumatoid arthritis, on infusion therapy (Rituxan) along with prednisone therapy 7. Mild to moderate coronary artery disease A. [facility], 06/2020 ANGIOGRAPHIC RESULTS The left main artery Normal The left anterior descending artery Has a proximal concentric 20% stenosis with remaining vessel normal. This is a large LAD which wraps the apex The circumflex artery Is a codominant vessel and has proximal 10 to 20% stenosis with a 40 to 50% stenosis in the proximal 2.5 mm first obtuse marginal artery. The right coronary artery Codominant and has a proximal 30 to 40% concentric stenosis The CASTILLO ventriculogram reveals Normal 65% The left ventricular end-diastolic pressure 20 mmHg IMPRESSION Coronary artery disease as described above Normal ejection fraction Evaded LVEDP PLAN 1. While it is possible the first obtuse marginal artery could be producing angina pectoris patient is not on any antianginal medications. I recommend maximizing antianginal medications which will almost certainly alleviate any angina stemming from the first obtuse marginal artery. 2. If patient continues with recalcitrant angina despite maximal medical therapy only then would I consider revascularizing the first obtuse marginal artery. 3. Aggressive risk factor modification 4. LDL goal less than 55% Electronically signed by : Sincere Valencia, 06/12/2020 10:37:36 8. Mild carotid artery stenosis (less than 20% bilaterally), carotid ultrasound, 06/2020 History of present illness: 60-year-old white female who is significantly debilitated from multiple medical problems including interstitial lung disease, chronic rheumatoid arthritis and is on chronic steroids. She has extremely poor functional status, is afflicted with morbid obesity and is on chronic oxygen. She came to the emergency department late yesterday evening because of upper chest pressure, describes some chest pain and upper abdominal pain. Work-up in the ER was fairly intensive and included she CT scan of chest, CT scan of abdomen and pelvis and labs which were fairly unrevealing except for her chronic anemia-of chronic disease and stable, and leukocytosis which has been present since has been on steroids for her rheumatoid arthritis. Admitted to hospital for evaluation of this chest pressure, echocardiogram and cardiology consultation. The above per Dr. Liu. Patient confirms the above events. She relates the right upper sided chest pain is worse with deep breathing and found feels like tearing sensation that does not radiate. She does relate the same symptoms prior to cardiac catheterization in June of last year at
[2021-01-11 11:07] LABS: POC Glucose,Bedside 139 (70-110)
--- NOTE | 2021-01-11 14:11 | HMH.DCSUM ---
General - General Admission date:: 01/11/21 Discharge date: 01/11/21 HPI HPI: 60-year-old white female who is significantly debilitated from multiple medical problems including interstitial lung disease, chronic rheumatoid arthritis and is on chronic steroids. She has extremely poor functional status, is afflicted with morbid obesity and is on chronic oxygen. She came to the emergency department late yesterday evening because of upper chest pressure, describes some chest pain and upper abdominal pain. Work-up in the ER was fairly intensive and included she CT scan of chest, CT scan of abdomen and pelvis and labs which were fairly unrevealing except for her chronic anemia-of chronic disease and stable, and leukocytosis which has been present since has been on steroids for her rheumatoid arthritis. Admitted to hospital for evaluation of this chest pressure, echocardiogram and cardiology consultation. Hospital Course Hospital Course: Patient was admitted for observation. Serial enzymes obtained and normal. Echocardiogram was obtained and is still pending. Cardiology was consulted and cleared her for discharge home for non cardiac chest pain. She continues to c/o pain of chest discomfort, costochondral tenderness on exam. This is most likely the source of her ledbetter. Confesses she has been take her dog's toradol at home which gives her relief for approx 6 hours. Leukocytosis is likely related to her chronic steroid use. Recommend repeating CBC at [facility] next week. Discharge home with ibuprofen for short term use only. Follow-up in office next week with Dr. Solomon to further discuss her chronic health issues. Objective Vital signs: Temp Pulse Resp BP Pulse Ox 98.0 F 76 20 125/56 L 97 01/11/21 11:40 01/11/21 11:40 01/11/21 11:40 01/11/21 11:40 01/11/21 11:40 Narrative: Alert and oriented x3. Rate and rhythm regular. LS with coarse intermittent crackles. Abd soft and nontender. Trace pedal edema. ENT exam unremarkable. Bilateral lower sternal border tenderness Results Labs on day of discharge: Labs from last 24 hours 01/11/21 01/11/21 01/11/21 10:47 05:41 05:41 WBC RBC Hgb Hct MCV MCH MCHC RDW Plt Count MPV Neut % (Auto) Lymph % (Auto) [place] % (Auto) Eos % (Auto) Baso % (Auto) Neut # (Auto) Lymph # (Auto) [place] # (Auto) Eos # (Auto) Baso # (Auto) Total Counted Neutrophils % (Manual) Lymphocytes % (Manual) Monocytes % (Manual) Eosinophils % (Manual) Platelet Estimate RBC Morphology Stomatocytes ESR Sodium 131 L Potassium 4.5 Chloride 99 Carbon Dioxide 26 Anion Gap 10.5 BUN 15 Creatinine 0.50 L Estimated Creat Clear 48 Estimated GFR 125 Est GFR ( Amer) 151 D Glucose 305 H POC Glucose 139 H Lactate 1.8 Calcium 8.8 Magnesium 1.3 L Total Bilirubin Direct Bilirubin Conjugated Bilirubin Indirect Bilirubin Unconjugated Bilirubin AST ALT Alkaline Phosphatase Troponin I C-Reactive Protein Total Protein Albumin Amylase Lipase Procalcitonin Urine Color Urine Appearance Urine pH Ur Specific [place] Urine Protein Urine Glucose (UA) Urine Ketones Urine Blood Urine Nitrate Urine Bilirubin Urine Urobilinogen Ur Leukocyte Esterase Urine WBC Ur Squamous Epith Cells Urine Bacteria Acetone Level 01/11/21 01/11/21 01/11/21 05:41 05:41 04:55 WBC 23.0 H* RBC 3.65 L Hgb 9.9 L Hct 30.8 L MCV 84.3 MCH 27.0 MCHC 32.0 RDW 14.0 Plt Count 415 MPV 8.3 Neut % (Auto) 86.2 H Lymph % (Auto) 9.9 L [place] % (Auto) 3.5 Eos % (Auto) 0.2 Baso % (Auto) 0.2 Neut # (Auto) 19.8 H Lymph # (Auto) 2.3 [place] # (Auto) 0.8 Eos # (Auto) 0.1 Baso # (Auto) 0.1 Total Counted Neutrophils % (Manual) Lymp
--- NOTE | 2021-01-11 14:38 | PC.NURSE ---
Nathaniel Rivera APRN made aware of IV infiltration in RAC when pt was in radiology. This nurse called and spoke with Pharm and made them aware, and ensured there was not any med that needed to be given. This RN did remove IV, cool compress applied as arm began to have small blisters and seep, with redness. Ciera Celis,RN spoke with Nathaniel Fiore APRN and she encouraged warm compresses. Will educate pt of this.
== END 2021-01-11 15:15 | disposition home or self-care (01) ==
LOC: ER 01-11 → 2ND 01-11 02:43
PROVIDERS: Admitting Provider Internal Medicine Adolescent Medicine; Emergency Provider Emergency Medicine; PCP Internal Medicine Adolescent Medicine; Visit Provider Internal Medicine Adolescent Medicine
DX: R07.9 Chest pain, unspecified (principal); E66.01 Morbid (severe) obesity due to excess calories; Z68.41 Body mass index [BMI] 40.0-44.9, adult; I25.10 Atherosclerotic heart disease of native coronary artery without angina pectoris; D64.9 Anemia, unspecified; I10 Essential (primary) hypertension; E11.9 Type 2 diabetes mellitus without complications; J44.9 Chronic obstructive pulmonary disease, unspecified; Z79.4 Long term (current) use of insulin; Z99.81 Dependence on supplemental oxygen; M06.9 Rheumatoid arthritis, unspecified
CPT/HCPCS: 71046; 71250; 74176; 76705; 80048; 80076; 81001; 82009; 82150; 82962; 83605; 83690; 83735; 84145; 84484; 85007; 85025; 85651; 86140; 87040; 93005; 93306; 96365; 96375; 99284; G0378; U0003

== ENCOUNTER 2021-02-09 09:05 | Outpatient (CLI) | payer OTHER, SELFPAY ==
[2021-02-09] VITALS (14 sets, daily range): BP systolic 121–154; BP diastolic 64–83; PULSE 72–82; RESP 16–18; TEMP 36.6; O2SAT 100
--- NOTE | 2021-02-09 09:15 | PC.NURSE ---
904 - PREMEDICATED WITH ACETAMINOPHEN 650MG PO, DIPHENHYDRAMINE 50MG PO, AND METHYLPREDNISOLONE 125MG IVP AT THIS TIME.
== END 2021-02-09 13:45 | disposition home or self-care (01) ==
LOC: INF 09:23
PROVIDERS: Visit Provider Internal Medicine Rheumatology
DX: M06.9 Rheumatoid arthritis, unspecified (principal); J84.9 Interstitial pulmonary disease, unspecified
CPT/HCPCS: 96413; 96415; J9312

== ENCOUNTER 2021-06-27 08:00 | Outpatient (CLI) | payer OTHER, SELFPAY ==
[2021-06-27] VITALS (14 sets, daily range): BP systolic 144–179; BP diastolic 76–97; PULSE 76–103; RESP 16–18; TEMP 36; O2SAT 100
== END 2021-06-27 13:15 | disposition home or self-care (01) ==
LOC: INF 08:01
PROVIDERS: PCP Internal Medicine Adolescent Medicine; Visit Provider Internal Medicine
DX: M06.9 Rheumatoid arthritis, unspecified (principal)
CPT/HCPCS: 96413; 96415; J9312

== ENCOUNTER 2021-07-11 09:01 | Outpatient (CLI) | payer OTHER, SELFPAY ==
[2021-07-11] VITALS (15 sets, daily range): BP systolic 116–152; BP diastolic 56–110; PULSE 78–92; RESP 16–18; TEMP 36.2; O2SAT 98
== END 2021-07-11 14:20 | disposition home or self-care (01) ==
LOC: INF 09:03
PROVIDERS: PCP Internal Medicine Adolescent Medicine; Visit Provider Internal Medicine
DX: M06.9 Rheumatoid arthritis, unspecified (principal)
CPT/HCPCS: 96413; 96415; J9312

== ENCOUNTER → 2021-07-27 08:13 | Outpatient (CLI) | payer OTHER, SELFPAY ==
[2021-07-27 08:45] LABS: Basophils # 0.1 K/mm3 (0-0.2); Basophils % 0.7 % (0.1-2.0); Eosinophils # 0.5 K/mm3 (0.0-0.4); Eosinophils % 2.4 % (0.1-12.0); Hematocrit 37.1 % (37.0-47.0); Hemoglobin 11.9 g/dL (12.2-16.2); Lymphocytes # 3.7 K/mm3 (0.7-4.5); Lymphocytes % 19.3 % (10-50); Mean Corpuscular HGB Conc 32.2 g/dL (31.8-35.4); Mean Corpuscular Hemoglobin 27.9 pg (27.0-31.2); Mean Corpuscular Volume 86.5 fl (81-99); Mean Platelet Volume 9.4 fl (7.4-10.4); Monocytes # 0.9 K/mm3 (0.1-1.0); Monocytes % 4.9 % (1.7-9.3); Neutrophils # 14.1 K/mm3 (1.8-7.8); Neutrophils % 72.7 % (37.0-80.0); Platelet Count 410 K/mm3 (142-424); Red Blood Count 4.28 M/mm3 (4.20-5.40); White Blood Count 19.4 K/mm3 (4.8-10.8)
[2021-07-27 09:17] LABS: MANUAL DIFFERENTIAL MANUAL DIFFERENTIAL (MANUAL DIFF)
[2021-07-27 09:23] LABS: Alanine Aminotransferase 26 U/L (12-78); Albumin Level 3.4 g/dl (3.5-5.0); Albumin/Globulin Ratio 1.2 (1.1-1.8); Alkaline Phosphatase 109 U/L (38-126); Anion Gap 13.4 mEq/L (5-15); Aspartate Amino Transferase 25 U/L (14-36); Bilirubin,Total 0.5 mg/dl (0.2-1.3); Blood Urea Nitrogen 17 mg/dl (7-17); Calcium 8.9 mg/dl (8.4-10.2); Carbon Dioxide 26 mmol/L (22.0-30.0); Chloride 98 mmol/L (98-107); Chol/HDL Ratio 4.2 (1-3.5); Cholesterol 165 mg/dl (140-200); Estimated Glomerular Filt Rate 101 ml/min (>60); GFR (African American) 123 ML/MIN (>60); Globulin 2.8 g/dL (1.3-3.2); Glucose 327 mg/dl (74-100); HDL Cholesterol 39 mg/dl (40-60); Potassium 4.4 mmoL/L (3.5-5.1); Sodium 133 mmol/L (136-145); Total Protein,Serum 6.2 g/dl (6.3-8.2); Triglycerides 168 mg/dl (30-150); VLDL Cholesterol 34 mg/dL (0-40)
[2021-07-27 09:34] LABS: Direct LDL Cholesterol 112.67 mg/dL (100-129)
[2021-07-27 09:45] LABS: Eosinophils % 3 % (0-3); Hypochromasia 1+; Lymphocytes % 18 % (10-50); Monocytes % 4 % (2-9); Neutrophils % 75 % (42-76); Platelet Estimate Normal; Total Cells Counted 100
[2021-07-27 10:57] LABS: Hemoglobin A1C 13.1 % (4.0-6.0)
== END ==
PROVIDERS: Visit Provider Internal Medicine Adolescent Medicine
DX: Z00.00 Encounter for general adult medical examination without abnormal findings (principal); I10 Essential (primary) hypertension; E11.9 Type 2 diabetes mellitus without complications; Z79.84 Long term (current) use of oral hypoglycemic drugs
CPT/HCPCS: 36415; 80053; 80061; 83036; 85007; 85025

== ENCOUNTER → 2021-09-12 13:05 | Outpatient (CLI) | payer OTHER, SELFPAY ==
--- NOTE | 2021-09-12 13:09 | CT_ITS ---
FINAL REPORT TECHNIQUE: Axial CT images were performed through the chest without contrast. Coronal reformatted images were submitted. This study was performed with techniques to keep radiation doses as low as reasonably achievable (ALARA). Individualized dose reduction techniques using automated exposure control or adjustment of mA and/or kV according to the patient's size were employed. CLINICAL HISTORY: interstitial lung disease patient on oxygen COMPARISON: January 11, 2021 FINDINGS: There is no axillary adenopathy. There are calcified subcarinal and right hilar lymph nodes. There are a few small scattered mediastinal lymph nodes measuring up to 1.2 cm. The heart size is normal. There is no pericardial or pleural effusion. There is extensive coarse bilateral pulmonary fibrosis which is most evident in the right upper lobe and at the lung bases. Allowing for differences in inflation, there is no significant change from the prior exam. Limited images of the upper abdomen are unremarkable. No suspicious infiltrate or nodule identified. IMPRESSION: Extensive changes of chronic fibrosis. Reviewed, Interpreted and Dictated by Jonny Hairston MD Transcribed by Saundra Parmar Authenticated by Jonny Hairston MD on 09/13/2021 11:56:[address] [facility]
[2021-09-12 14:45] LABS: Erythrocyte Sedimentation Rate 56 mm/hr (0-30)
[2021-09-12 15:30] LABS: Anion Gap 10.1 mEq/L (5-15); Blood Urea Nitrogen 16 mg/dl (7-17); Calcium 9.4 mg/dl (8.4-10.2); Carbon Dioxide 33 mmol/L (22.0-30.0); Chloride 97 mmol/L (98-107); Estimated Glomerular Filt Rate 125 ml/min (>60); GFR (African American) 151 ML/MIN (>60); Glucose 199 mg/dl (74-100); Potassium 4.1 mmoL/L (3.5-5.1); Sodium 136 mmol/L (136-145)
[2021-09-12 16:21] LABS: Hemoglobin A1C 10.9 % (4.0-6.0)
== END ==
PROVIDERS: PCP Internal Medicine Adolescent Medicine; Visit Provider Nurse Practitioner Family
DX: J84.9 Interstitial pulmonary disease, unspecified (principal); E11.9 Type 2 diabetes mellitus without complications; I10 Essential (primary) hypertension; M06.9 Rheumatoid arthritis, unspecified; Z79.4 Long term (current) use of insulin
CPT/HCPCS: 36415; 71250; 80048; 83036; 85651

== ENCOUNTER → 2021-10-03 06:56 | Outpatient (CLI) | payer OTHER, SELFPAY ==
--- NOTE | 2021-10-03 06:57 | CA_ITS ---
APPROVED REPORT Exam: Pharmacologic Technologist: Cookie Whyte, Ht: 5 ft 3 in Wt: 254 lbs BSA: 2.14 m2 HR: 83 bpm BP: 133/66 mmHg Medical History Medications: Omeprazole,,,,, Aspirin,,,,, Metformin,,,,, Losartan,,,,, Atorvastatin,,,,, Glimepiride,,,,, Albuterol,,,,, Ibuprofen,,,,, Prednisone,,,,, LanTUS,,,,, SpirOnolactone,,,,, Toprol XL,,,,, Stress Test Details Test: LEXISCAN HR Resting HR: 84 bpm Max Heart Rate (APMHR): 157.292462 bpm Max HR Achieved: 109 bpm Target HR (85% APMHR): 133.746490 bpm % of APMHR: 69.43 Recovery HR: 93 bpm BP Resting BP: 133/66 mmHg Max BP: 153/55 mmHg Recovery BP: 145.0/71.0 mmHg ECG Resting ECG: NSR Clinical Exercise duration: 04:00 min Highest Stage Achieved: Exercise capacity: 1.0 METs Stress ECG Conclusion 1 Minute: Soa, mild CP 2 Minute: Nausea 4 Minute: Nausea persist Recovery 1 Minute: aminophylline 100mg slow IV given 3 Minute: Sxs better 5 Minute: Sxs gone Symptoms: SOA, nausea, brief chest discomfort. Arrhythmias/Ectopy: None ST-T Changes: No significant changes Conclusion: Unremarkable Lexiscan stress. Myoview images reported separately. Test Summary REST 03:55 . . 84 . 133/ 66 . . Stage 1 . . . . . . . Cardiolite injected Stage 1 01:00 . . 99 . . . . Stage 2 01:00 . . 105 . . . . Stage 3 01:00 . . 102 . 153/ 55 . . Stage 4 01:00 . . 100 . . . Stop exercise at 04:00 RECOVERY 01:00 . . 96 . 130/ 56 . . RECOVERY 02:00 . . 96 . 130/ 56 . . RECOVERY 03:00 . . 95 . 130/ 56 . . RECOVERY 04:00 . . 95 . 130/ 56 . . RECOVERY 05:00 . . 97 . 130/ 56 . . RECOVERY 05:43 . . 96 . 145/ 71 . . Electronically signed by : Porfirio Collado MD 10/03/2021 12:20:20
--- NOTE | 2021-10-03 06:57 | NM_ITS ---
APPROVED REPORT Exam: Nuclear Stress Test Indication: HTN, D.M., HYPERLIPIDEMIA,FORMER TOB USE, C.P., SOB Patient Location: Outpatient Stress Tech: Cookie Isabell [place] Tech:TED Jiang RT (R)(N)(M) Ht: 5 ft 3 in Wt: 257 lbs Bra Size: 42C HR: 84 bpm BP: 133/66 mmHg BSA: 2.15 m2 BMI: 45.5 History: HTN, D.M., HYPERLIPIDEMIA,FORMER TOB USE, C.P., SOB Procedure: Patient received a 0.4 mg of intravenous Lexiscan, resting heart rate 84 bpm, resting blood pressure 133/66 mmHg, with Lexiscan maximum heart rate achived was 105 bpm which is Less than 85 % of the maximum predicted heart rate and blood pressure was 153/55 mmHg. With Lexiscan, patient denied any complaint of chest pain. Electrocardiogram Resting electrocardiogram showed sinus rhythm, with Lexiscan there is less than 1.[address] segment depression noted from the baseline EKG. The EKG portion of the Lexiscan is nondiagnostic. Cardiac Stress and Resting SPECT Images: Cardiac Stress and Resting SPECT images were obtained using technetium 99m Myoview 31.9 mCi stress and 10.87 mCi at rest. Gated SPECT for analysis of segmental wall motion and calculation of the ejection fraction also done. Prone images were also obtained. Cardiac stress and resting SPECT images show uniform myocardial activity without segmental perfusion abnormality, computer derived ejection fraction is 58% with no regional wall motion abnormality, right ventricle is normal size and contractility. Conclusion: 1. The EKG portion of the Lexiscan is nondiagnostic. 2. No scintigraphic evidence of reversible ischemia seen, computer derived ejection fraction is 58% with no regional wall motion abnormality, right ventricle is normal size and contractility. 3. Normal Lexiscan Myoview study. Electronically signed by : Porfirio Collado MD 10/03/2021 12:40:15
== END ==
PROVIDERS: PCP Internal Medicine Adolescent Medicine; Visit Provider Nurse Practitioner Family
DX: R06.00 Dyspnea, unspecified (principal); I20.9 Angina pectoris, unspecified; I10 Essential (primary) hypertension; E78.2 Mixed hyperlipidemia; I65.29 Occlusion and stenosis of unspecified carotid artery
CPT/HCPCS: 78452; 93017; A9502; J2785

== ENCOUNTER 2021-10-17 14:00 | Outpatient (RCR) | payer OTHER, SELFPAY | END 2021-10-17 14:05 | disposition home or self-care (01) | LOC: OT 14:00 | PROVIDERS: PCP Internal Medicine Adolescent Medicine; Visit Provider Internal Medicine Rheumatology | DX: M19.041 Primary osteoarthritis, right hand (principal); M19.042 Primary osteoarthritis, left hand; M05.79 Rheumatoid arthritis with rheumatoid factor of multiple sites without organ or systems involvement | CPT/HCPCS: 97035; 97140; 97166 ==

== ENCOUNTER 2021-10-17 15:00 | Outpatient (RCR) | payer OTHER, SELFPAY | END 2021-10-17 15:05 | disposition home or self-care (01) | LOC: PT 15:00 | PROVIDERS: PCP Internal Medicine Adolescent Medicine; Visit Provider Internal Medicine Rheumatology | DX: M19.041 Primary osteoarthritis, right hand (principal); M19.042 Primary osteoarthritis, left hand; M05.79 Rheumatoid arthritis with rheumatoid factor of multiple sites without organ or systems involvement; M79.7 Fibromyalgia | CPT/HCPCS: 97113; 97163 ==

== ENCOUNTER → 2021-11-06 11:12 | Outpatient (CLI) | payer OTHER, SELFPAY ==
[2021-11-06 13:01] LABS: Anion Gap 10.7 mEq/L (5-15); Blood Urea Nitrogen 14 mg/dl (7-17); Calcium 8.9 mg/dl (8.4-10.2); Carbon Dioxide 29 mmol/L (22.0-30.0); Chloride 100 mmol/L (98-107); Estimated Glomerular Filt Rate 125 ml/min (>60); GFR (African American) 151 ML/MIN (>60); Glucose 262 mg/dl (74-100); Potassium 4.7 mmoL/L (3.5-5.1); Sodium 135 mmol/L (136-145)
[2021-11-06 13:10] LABS: NT Pro Brain Natriuretic Pep. 77.2 pg/mL (0-125)
== END ==
PROVIDERS: Visit Provider Nurse Practitioner Family
DX: R06.00 Dyspnea, unspecified (principal); I51.89 Other ill-defined heart diseases
CPT/HCPCS: 36415; 80048; 83880

== ENCOUNTER 2021-11-14 08:12 | Outpatient (CLI) | payer OTHER, SELFPAY ==
[2021-11-14] VITALS (14 sets, daily range): BP systolic 94–144; BP diastolic 55–101; PULSE 78–101; RESP 16–18; TEMP 36.2; O2SAT 100; BMI 43.9
[2021-11-14 09:23] LABS: Basophils # 0.2 K/mm3 (0-0.2); Basophils % 0.9 % (0.1-2.0); Eosinophils # 0.5 K/mm3 (0.0-0.4); Eosinophils % 2.2 % (0.1-12.0); Hematocrit 35.9 % (37.0-47.0); Hemoglobin 11.4 g/dL (12.2-16.2); Lymphocytes # 3.8 K/mm3 (0.7-4.5); Lymphocytes % 16.7 % (10-50); Mean Corpuscular HGB Conc 31.7 g/dL (31.8-35.4); Mean Corpuscular Volume 85.3 fl (81-99); Mean Platelet Volume 8.9 fl (7.4-10.4); Monocytes # 0.9 K/mm3 (0.1-1.0); Monocytes % 4.1 % (1.7-9.3); Neutrophils # 17.5 K/mm3 (1.8-7.8); Neutrophils % 76.1 % (37.0-80.0); Platelet Count 593 K/mm3 (142-424); Red Cell Distribution Width 14.1 % (11.5-17.5); White Blood Count 22.9 K/mm3 (4.8-10.8)
[2021-11-14 09:25] LABS: MANUAL DIFFERENTIAL MANUAL DIFFERENTIAL (MANUAL DIFF)
[2021-11-14 11:39] LABS: Eosinophils % 1 % (0-3); Lymphocytes % 24 % (10-50); Monocytes % 2 % (2-9); Neutrophils % 73 % (42-76); Platelet Estimate Normal; Total Cells Counted 100
[2021-11-14 11:41] LABS: Hypochromasia 1+
== END 2021-11-14 13:45 | disposition home or self-care (01) ==
LOC: INF 08:12
PROVIDERS: PCP Internal Medicine Adolescent Medicine; Visit Provider Internal Medicine Rheumatology
DX: M06.9 Rheumatoid arthritis, unspecified (principal)
CPT/HCPCS: 85007; 85025; 96413; 96415; J9312

== ENCOUNTER → 2021-11-16 13:51 | Outpatient (CLI) | payer OTHER, SELFPAY ==
--- NOTE | 2021-11-16 13:55 | XR_ITS ---
FINAL REPORT CLINICAL HISTORY: INTERSTITIAL LUNG DISEASE High WBC COMPARISON: January 10, 2021; January 11, 2021 FINDINGS: Two views of the chest were obtained. The heart size and pulmonary vascularity are within normal limits. The mediastinum is normal. There are moderate bilateral pulmonary opacities likely representing moderate fibrosis/scarring, not significantly changed since prior exams. There is no pneumothorax. The bony thorax is intact. IMPRESSION: Moderate bilateral pulmonary opacities likely representing moderate fibrosis/scarring, not significantly changed since prior exams. Reviewed, Interpreted and Dictated by Gabriele Houston III, MD Transcribed by Caitie Daniel Authenticated by Gabriele Houston III, MD on 11/16/2021 03:32:11 PM [facility]
== END ==
PROVIDERS: PCP Internal Medicine Adolescent Medicine; Visit Provider Internal Medicine Adolescent Medicine
DX: J84.9 Interstitial pulmonary disease, unspecified (principal)
CPT/HCPCS: 71046

== ENCOUNTER 2021-11-28 08:37 | Outpatient (CLI) | payer OTHER, SELFPAY ==
[2021-11-28] VITALS (15 sets, daily range): BP systolic 116–164; BP diastolic 56–95; PULSE 76–92; RESP 16–18; BMI 43.9
[2021-11-28 09:22] LABS: Basophils # 0.2 K/mm3 (0-0.2); Basophils % 0.9 % (0.1-2.0); Eosinophils # 0.8 K/mm3 (0.0-0.4); Eosinophils % 4.5 % (0.1-12.0); Hematocrit 34.8 % (37.0-47.0); Hemoglobin 10.8 g/dL (12.2-16.2); Lymphocytes # 3.2 K/mm3 (0.7-4.5); Lymphocytes % 18.1 % (10-50); Mean Corpuscular HGB Conc 31.1 g/dL (31.8-35.4); Mean Corpuscular Hemoglobin 27.1 pg (27.0-31.2); Mean Corpuscular Volume 87.3 fl (81-99); Mean Platelet Volume 8.7 fl (7.4-10.4); Monocytes % 5.9 % (1.7-9.3); Neutrophils # 12.5 K/mm3 (1.8-7.8); Neutrophils % 70.6 % (37.0-80.0); Platelet Count 476 K/mm3 (142-424); Red Blood Count 3.99 M/mm3 (4.20-5.40); Red Cell Distribution Width 14.7 % (11.5-17.5); White Blood Count 17.6 K/mm3 (4.8-10.8)
[2021-11-28 09:28] LABS: MANUAL DIFFERENTIAL MANUAL DIFFERENTIAL (MANUAL DIFF)
[2021-11-28 10:03] LABS: Eosinophils % 4 % (0-3); Lymphocytes % 21 % (10-50); Monocytes % 6 % (2-9); Neutrophils % 69 % (42-76); Total Cells Counted 100
[2021-11-28 10:05] LABS: Hypochromasia 1+; Platelet Estimate Slight Increase
== END 2021-11-28 13:35 | disposition home or self-care (01) ==
LOC: INF 08:38
PROVIDERS: PCP Internal Medicine Adolescent Medicine; Visit Provider Internal Medicine Rheumatology
DX: M06.9 Rheumatoid arthritis, unspecified (principal)
CPT/HCPCS: 85007; 85025; 96413; 96415; J9312

== ENCOUNTER → 2022-02-13 09:50 | Outpatient (CLI) | payer OTHER, SELFPAY ==
[2022-02-13 10:30] VITALS: PULSE 90; PULSE 96
== END ==
PROVIDERS: PCP Internal Medicine Adolescent Medicine; Visit Provider Internal Medicine Pulmonary Disease
DX: R06.09 Other forms of dyspnea (principal)
CPT/HCPCS: 94060; 94618; 94640; 94727; 94729

== ENCOUNTER → 2022-02-15 12:01 | Outpatient (CLI) | payer OTHER, SELFPAY ==
[2022-02-15 13:03] LABS: D-Dimer 0.62 ug/mL (0.0-0.5)
[2022-02-15 13:22] LABS: C-Reactive Protein 39.5 mg/L (0-4)
[2022-02-17 19:14] LABS: Cytoplasmic (C-ANCA) <1:20 titer (Neg:<1:20); Perinuclear (P-ANCA) <1:20 titer (Neg:<1:20)
[2022-02-18 12:09] LABS: Anti-Centromere B Antibodies <0.2 AI (0.0-0.9)
[2022-02-18 17:23] LABS: Antiproteinase 3 (PR-3) Abs <3.5 U/mL (0.0-3.5); Myeloperoxidase Antibody <9.0 U/mL (0.0-9.0)
[2022-02-19 04:21] LABS: Anti-Cyclic Citrullinated Pept >250 units (0-19)
[2022-02-22 23:23] LABS: D001-IgE D pteronyssinus <0.10 kU/L (Class 0); D002-IgE D farinae 0.32 kU/L (Class I); E001-IgE Cat Dander <0.10 kU/L (Class 0); E005-IgE Dog Dander 0.13 kU/L (Class 0/I); E072-IgE Mouse Urine <0.10 kU/L (Class 0); G002-IgE Bermuda Grass 0.85 kU/L (Class II); G006-IgE Timothy Grass 0.81 kU/L (Class II); I006-IgE Cockroach, German 0.73 kU/L (Class II); Immunoglobulin E, Total 24 IU/mL (6-495); M001-IgE Penicillium chrysogen <0.10 kU/L (Class 0); M002-IgE Cladosporium herbarum <0.10 kU/L (Class 0); M003-IgE Aspergillus fumigatus <0.10 kU/L (Class 0); M006-IgE Alternaria alternata <0.10 kU/L (Class 0); T001-IgE Maple/Box Elder 0.83 kU/L (Class II); T003-IgE Common Silver Birch 0.88 kU/L (Class II); T006-IgE Cedar, Mountain 0.68 kU/L (Class II); T007-IgE Oak, White 0.78 kU/L (Class II); T008-IgE Elm, American 0.81 kU/L (Class II); T010-IgE Walnut 0.85 kU/L (Class II); T011-IgE Maple Leaf Sycamore 0.78 kU/L (Class II); T014-IgE Cottonwood 0.84 kU/L (Class II); T015-IgE Ash, White 0.97 kU/L (Class II); T022-IgE Pecan, Hickory 0.89 kU/L (Class II); T070-IgE White Mulberry 0.77 kU/L (Class II); W001-IgE Ragweed, Short 0.78 kU/L (Class II); W011-IgE Thistle, Russian 0.78 kU/L (Class II); W014-IgE Pigweed, Common 0.83 kU/L (Class II)
[2022-02-24 21:09] LABS: Antinuclear Antibodies (ANA) NEGATIVE
== END ==
PROVIDERS: PCP Internal Medicine Adolescent Medicine; Visit Provider Internal Medicine Pulmonary Disease
DX: R06.09 Other forms of dyspnea; J98.4 Other disorders of lung; J45.998 Other asthma
CPT/HCPCS: 36415; 82785; 83520; 85378; 86003; 86038; 86140; 86200; 86235; 86256

== ENCOUNTER → 2022-02-20 13:34 | Outpatient (CLI) | payer OTHER, SELFPAY ==
--- NOTE | 2022-02-20 14:02 | CT_ITS ---
FINAL REPORT TECHNIQUE: Then section axial CT images of the chest were obtained with contrast. Three-D reformatted images were also obtained.This study was performed with techniques to keep radiation doses as low as reasonably achievable (ALARA). Individualized dose reduction techniques using automated exposure control or adjustment of mA and/or kV according to the patient''s size were employed. CLINICAL HISTORY: sob, r/o PE COMPARISON: September 12, 2021 FINDINGS: There is no evidence of pulmonary embolism. There is no evidence of thoracic aortic aneurysm or dissection. Borderline sized mediastinal and hilar lymph nodes are stable. There is moderate but stable fibrosis. There are patchy ground-glass opacities. Limited images of the upper abdomen are unremarkable. IMPRESSION: 1. No evidence of pulmonary embolism. 2. Patchy ground-glass opacities could represent edema or alveolitis. Reviewed, Interpreted and Dictated by Gabriele Houston III, MD Transcribed by Parminder Carey Authenticated and [facility]
[2022-02-20 14:11] LABS: Blood Urea Nitrogen 17 mg/dl (7-17); Estimated Glomerular Filt Rate 85 ml/min (>60); GFR (African American) 102 ML/MIN (>60)
== END ==
PROVIDERS: PCP Internal Medicine Adolescent Medicine; Visit Provider Internal Medicine Pulmonary Disease
DX: R06.00 Dyspnea, unspecified (principal)
CPT/HCPCS: 36415; 71275; 82565; 84520; Q9967

== ENCOUNTER → 2022-03-19 12:53 | Outpatient (CLI) | payer OTHER, SELFPAY ==
--- NOTE | 2022-03-19 12:56 | CA_ITS ---
APPROVED REPORT EXAM: Comprehensive 2D, Doppler, and color-flow Echocardiogram Forms Builder: Margarita Kerns, LAURA, RVS Ht: 5 ft 3 in Wt: 249lbs BSA: 2.12 BP: 160/87 mmHg Indications: SOB, COPD, HTN, HLD, DM, PalpitationsObesity 2D Dimensions IVSd 1.11 cm LVEF (Visual) 46.50 % PWd 0.80 cm LA Volume 45.30 mL LVDd 4.38 cm LA Volume Index 21.40 mL/m2 (M/F) 16-34 LVDs 3.37 cm LVOT 1.99 cm (M/F) 1.5-2.5 M-Mode Dimensions LA Diam 4.04 cm (1.9-4.0) LVDd 5.57 cm (3.5-5.7) Ao Diam 2.67 cm (2.0-3.7) LVDs 4.21 cm (3.5-5.7) EF (Teich) 48.00% EPSs 0.46 cm FS 24.40% EDV (Teich) 151.80 mL TAPSE 1.58 (<1.7) ESV (Teich) 79.00 mL LV Diastology E Decel Time 253.00 (160-240 msec) E/A Ratio 0.79 MED E' 7.80 (< 7 cm/sec) MED A' 13.60 cm/s E'/MED E' Ratio 10.37 (>14) LAT E' 7.60 (<10 cm/sec) LAT A' 11.40 cm/s E/LAT E' Ratio 10.64 (>14) Aortic Valve LVOT Max 130.00 (70-110 cm/s) LVOT VTI 23.58 cm AoV Peak Faustino. 210.00 (50-130 cm/s) AO Peak GR. 17.60 mmHg AO Mean GR. 9.30 (<5 mmHg) AO VTI 35.57 (18-25 cm) ASHOK (VTI) 2.06 (2.5-4.5 cm2) Mitral Valve MV A Velocity 103.00 (40-130 cm/s) E/A Ratio 0.79 MV Decel. Time 253.00 (160-240 ms) MV Mean Gr. 2.90 (<2mmHg) MV PHT 73.00 ms Pulmonary Valve PV Peak Velocity 84.00 (50-150 cm/s) Left Ventricle Left atrium is mildly enlarged, left ventricle is normal size, mild concentric left ventricular hypertrophy, estimated ejection fraction 55% with no regional wall motion abnormality, grade 1 diastolic dysfunction seen without the presence of history of facial pressure. Right Ventricle Right atrium and right ventricle are normal size and contractility. Aortic Valve Aortic valve is thickened and calcified without significant aortic stenosis or aortic insufficiency. Mitral Valve Mitral valve leaflets are minimally thickened, there is mild mitral regurgitation. Tricuspid Valve Tricuspid valve grossly normal, there is mild tricuspid regurgitation, tricuspid regurgitation jet velocity is inadequate for calculation of the right ventricular systolic pressure. Pulmonic Valve Pulmonic valve is poorly visualized. Great Vessels Aortic root is normal size. Inferior vena cava is poorly visualized. Pericardium No significant pericardial effusion. Conclusion 1. Mildly enlarged left atrium, normal left ventricular size, mild concentric left ventricular hypertrophy, estimated ejection fraction 55% with no regional wall motion abnormality, grade 1 diastolic dysfunction. No scintigraphic evidence of raise left atrial pressure. 2. Thickened and calcified aortic valve without Doppler evidence of aortic stenosis or aortic insufficiency. 3. Mild mitral and tricuspid regurgitation. 4. No significant pericardial effusion. Electronically signed by : Porfirio Collado MD 03/19/2022 19:26:08
== END ==
PROVIDERS: PCP Internal Medicine Adolescent Medicine; Visit Provider Internal Medicine Pulmonary Disease
DX: R06.09 Other forms of dyspnea (principal)
CPT/HCPCS: 93306

== ENCOUNTER 2022-03-27 08:53 | Outpatient (CLI) | payer OTHER, SELFPAY ==
[2022-03-27] VITALS (14 sets, daily range): BP systolic 97–159; BP diastolic 57–89; PULSE 83–100; RESP 16–20; O2SAT 97
== END 2022-03-27 13:40 | disposition home or self-care (01) ==
LOC: INF 08:53
PROVIDERS: PCP Internal Medicine Adolescent Medicine; Visit Provider Internal Medicine
DX: Z51.12 Encounter for antineoplastic immunotherapy (principal); M06.9 Rheumatoid arthritis, unspecified
CPT/HCPCS: 96413; 96415; J9312

== ENCOUNTER 2022-04-10 08:42 | Outpatient (CLI) | payer OTHER, SELFPAY ==
[2022-04-10] VITALS (11 sets, daily range): BP systolic 132–170; BP diastolic 72–98; PULSE 80–92; RESP 18–22; TEMP 36.4; O2SAT 99–100
== END 2022-04-10 13:58 | disposition home or self-care (01) ==
LOC: INF 08:42
PROVIDERS: PCP Internal Medicine Adolescent Medicine; Visit Provider Internal Medicine
DX: M06.9 Rheumatoid arthritis, unspecified (principal)
CPT/HCPCS: 96413; 96415; J9312

== ENCOUNTER → 2022-08-07 15:01 | Outpatient (CLI) | payer OTHER, SELFPAY ==
[2022-08-07 15:25] VITALS: PULSE 89; PULSE 90
== END ==
PROVIDERS: PCP Internal Medicine Adolescent Medicine; Visit Provider Internal Medicine Pulmonary Disease
DX: J84.9 Interstitial pulmonary disease, unspecified (principal); J45.909 Unspecified asthma, uncomplicated
CPT/HCPCS: 94060; 94640

== ENCOUNTER 2022-08-14 08:41 | Outpatient (CLI) | payer OTHER, SELFPAY ==
[2022-08-14] VITALS (8 sets, daily range): BP systolic 105–152; BP diastolic 64–88; PULSE 70–85; RESP 20; TEMP 36.4; O2SAT 97; BMI 43.7
[2022-08-14 09:08] LABS: Basophils # 0.1 K/mm3 (0-0.2); Basophils % 0.8 % (0.1-2.0); Eosinophils # 0.8 K/mm3 (0.0-0.4); Hematocrit 36.3 % (37.0-47.0); Hemoglobin 11.3 g/dL (12.2-16.2); Lymphocytes % 25.5 % (10-50); Mean Corpuscular Hemoglobin 25.7 pg (27.0-31.2); Mean Corpuscular Volume 82.7 fl (81-99); Mean Platelet Volume 8.5 fl (7.4-10.4); Monocytes # 0.9 K/mm3 (0.1-1.0); Monocytes % 5.8 % (1.7-9.3); Neutrophils # 9.9 K/mm3 (1.8-7.8); Neutrophils % 62.9 % (37.0-80.0); Platelet Count 570 K/mm3 (142-424); Red Blood Count 4.39 M/mm3 (4.20-5.40); Red Cell Distribution Width 15.6 % (11.5-17.5); White Blood Count 15.8 K/mm3 (4.8-10.8)
[2022-08-14 09:11] LABS: MANUAL DIFFERENTIAL MANUAL DIFFERENTIAL (MANUAL DIFF)
[2022-08-14 10:07] LABS: Eosinophils % 2 % (0-3); Hypochromasia 1+; Lymphocytes % 31 % (10-50); Monocytes % 2 % (2-9); Neutrophils % 64 % (42-76); Platelet Estimate Moderate Increase; Total Cells Counted 100
== END 2022-08-14 13:40 | disposition home or self-care (01) ==
LOC: INF 08:42
PROVIDERS: PCP Internal Medicine Adolescent Medicine; Visit Provider Internal Medicine Rheumatology
DX: Z51.12 Encounter for antineoplastic immunotherapy (principal); M05.79 Rheumatoid arthritis with rheumatoid factor of multiple sites without organ or systems involvement
CPT/HCPCS: 85007; 85025; 96413; 96415; J9312

== ENCOUNTER 2022-08-28 08:28 | Outpatient (CLI) | payer OTHER, SELFPAY ==
[2022-08-28] VITALS (15 sets, daily range): BP systolic 136–173; BP diastolic 68–115; PULSE 69–88; RESP 16–20; O2SAT 99; BMI 43.9
[2022-08-28 08:58] LABS: Basophils # 0.1 K/mm3 (0-0.2); Basophils % 0.6 % (0.1-2.0); Eosinophils # 0.6 K/mm3 (0.0-0.4); Eosinophils % 3.3 % (0.1-12.0); Hematocrit 35.1 % (37.0-47.0); Hemoglobin 11.1 g/dL (12.2-16.2); Lymphocytes # 4.2 K/mm3 (0.7-4.5); Lymphocytes % 22.5 % (10-50); Mean Corpuscular HGB Conc 31.7 g/dL (31.8-35.4); Mean Corpuscular Hemoglobin 26.2 pg (27.0-31.2); Mean Corpuscular Volume 82.5 fl (81-99); Mean Platelet Volume 8.7 fl (7.4-10.4); Monocytes # 0.9 K/mm3 (0.1-1.0); Monocytes % 4.9 % (1.7-9.3); Neutrophils # 12.9 K/mm3 (1.8-7.8); Neutrophils % 68.8 % (37.0-80.0); Platelet Count 460 K/mm3 (142-424); Red Blood Count 4.25 M/mm3 (4.20-5.40); Red Cell Distribution Width 16.1 % (11.5-17.5); White Blood Count 18.8 K/mm3 (4.8-10.8)
[2022-08-28 08:59] LABS: MANUAL DIFFERENTIAL MANUAL DIFFERENTIAL (MANUAL DIFF)
[2022-08-28 09:34] LABS: Anisocytosis 1+; Hypochromasia 1+; Lymphocytes % 27 % (10-50); Monocytes % 2 % (2-9); Neutrophils % 71 % (42-76); Platelet Estimate Slight Increase; RBC Morphology NPP; Total Cells Counted 100
== END 2022-08-28 13:50 | disposition home or self-care (01) ==
LOC: INF 08:29
PROVIDERS: PCP Internal Medicine Adolescent Medicine; Visit Provider Internal Medicine Rheumatology
DX: M05.79 Rheumatoid arthritis with rheumatoid factor of multiple sites without organ or systems involvement (principal); M06.9 Rheumatoid arthritis, unspecified
CPT/HCPCS: 85007; 85025; 96413; 96415; J9312

== ENCOUNTER → 2022-10-07 09:16 | Outpatient (CLI) | payer OTHER, SELFPAY ==
--- NOTE | 2022-10-07 09:20 | XR_ITS ---
FINAL REPORT TECHNIQUE: Bone mineral density was calculated of the lumbar spine and hip. CLINICAL HISTORY: . osteo multiple joints FINDINGS: DEXA BONE DENSITY AXIAL SKELETON Using L1-4, the bone mineral density of the spine is 1.103 g/cm2, corresponding to T-score of 0.5. Using the left hip, the bone mineral density of the femoral neck is 0.707 g/cm2, corresponding to a T-score of -1.3. NOTE: T-score: Standard deviation compared with peak bone mass of young adult mean. *Following the recommendations of the International Society of Bone densitometry, classification of hip BMD is based on the lower of two T-scores; total hip or femoral neck. IMPRESSION: Diminished bone mineral density of the lumbar spine and left hip consistent with osteopenia. FRAX not reported because: Patient treated for osteoporosis. Reviewed, Interpreted and Dictated by Gabriele Houston III, MD Transcribed by Saundra Parmar Authenticated and [facility]
== END ==
PROVIDERS: PCP Internal Medicine Adolescent Medicine; Visit Provider Internal Medicine Rheumatology
DX: Z79.52 Long term (current) use of systemic steroids (principal)
CPT/HCPCS: 77080

== ENCOUNTER 2022-10-07 09:47 | Outpatient (RCR) | payer OTHER, SELFPAY | END 2022-10-07 09:50 | disposition home or self-care (01) | LOC: PT 09:47 | PROVIDERS: PCP Internal Medicine Adolescent Medicine; Visit Provider Pediatrics Pediatric Emergency Medicine | DX: M15.9 Polyosteoarthritis, unspecified (principal); M54.2 Cervicalgia; M54.9 Dorsalgia, unspecified | CPT/HCPCS: 97163 ==

== ENCOUNTER 2023-01-01 09:33 | Outpatient (CLI) | payer OTHER, SELFPAY ==
[2023-01-01] VITALS (13 sets, daily range): BP systolic 132; BP diastolic 78; PULSE 79–92; RESP 20; TEMP 36.8; O2SAT 97; BMI 41.4
[2023-01-01 10:37] LABS: Basophils # 0.1 K/mm3 (0-0.2); Basophils % 0.3 % (0.1-2.0); Eosinophils # 0.7 K/mm3 (0.0-0.4); Eosinophils % 3.5 % (0.1-12.0); Hemoglobin 12.1 g/dL (12.2-16.2); Lymphocytes # 3.7 K/mm3 (0.7-4.5); Lymphocytes % 18.7 % (10-50); Mean Corpuscular Hemoglobin 26.2 pg (27.0-31.2); Mean Corpuscular Volume 84.4 fl (81-99); Mean Platelet Volume 8.7 fl (7.4-10.4); Monocytes % 5.1 % (1.7-9.3); Neutrophils # 14.1 K/mm3 (1.8-7.8); Neutrophils % 72.4 % (37.0-80.0); Platelet Count 452 K/mm3 (142-424); Red Blood Count 4.62 M/mm3 (4.20-5.40); Red Cell Distribution Width 14.6 % (11.5-17.5); White Blood Count 19.5 K/mm3 (4.8-10.8)
[2023-01-01 10:56] LABS: MANUAL DIFFERENTIAL MANUAL DIFFERENTIAL (MANUAL DIFF)
[2023-01-01 11:28] LABS: Eosinophils % 2 % (0-3); Lymphocytes % 22 % (10-50); Monocytes % 6 % (2-9); Neutrophils % 70 % (42-76); Total Cells Counted 100
[2023-01-01 11:29] LABS: Hypochromasia 1+
[2023-01-01 11:30] LABS: Platelet Estimate Slight Increase
== END 2023-01-01 14:55 | disposition home or self-care (01) ==
LOC: INF 09:33
PROVIDERS: PCP Internal Medicine Adolescent Medicine; Visit Provider Internal Medicine Rheumatology
DX: M05.79 Rheumatoid arthritis with rheumatoid factor of multiple sites without organ or systems involvement (principal)
CPT/HCPCS: 85007; 85025; 96413; 96415; J9312

== ENCOUNTER 2023-01-17 08:32 | Outpatient (CLI) | payer OTHER, SELFPAY ==
[2023-01-17] VITALS (9 sets, daily range): BP systolic 102–174; BP diastolic 58–98; PULSE 80–89; RESP 18–19; O2SAT 100; BMI 53.0
[2023-01-17 09:04] LABS: Basophils # 0.1 K/mm3 (0-0.2); Basophils % 0.3 % (0.1-2.0); Eosinophils # 0.7 K/mm3 (0.0-0.4); Eosinophils % 3.8 % (0.1-12.0); Hemoglobin 11.4 g/dL (12.2-16.2); Lymphocytes # 3.6 K/mm3 (0.7-4.5); Lymphocytes % 20.3 % (10-50); Mean Corpuscular HGB Conc 31.6 g/dL (31.8-35.4); Mean Corpuscular Hemoglobin 26.3 pg (27.0-31.2); Mean Corpuscular Volume 83.2 fl (81-99); Mean Platelet Volume 8.5 fl (7.4-10.4); Monocytes # 0.9 K/mm3 (0.1-1.0); Monocytes % 5.1 % (1.7-9.3); Neutrophils # 12.6 K/mm3 (1.8-7.8); Neutrophils % 70.6 % (37.0-80.0); Platelet Count 467 K/mm3 (142-424); Red Blood Count 4.33 M/mm3 (4.20-5.40); Red Cell Distribution Width 14.7 % (11.5-17.5); White Blood Count 17.8 K/mm3 (4.8-10.8)
[2023-01-17 09:08] LABS: MANUAL DIFFERENTIAL MANUAL DIFFERENTIAL (MANUAL DIFF)
[2023-01-17 09:28] LABS: Eosinophils % 3 % (0-3); Lymphocytes % 28 % (10-50); Monocytes % 6 % (2-9); Neutrophils % 63 % (42-76); Total Cells Counted 100
[2023-01-17 09:29] LABS: Platelet Estimate Slight Increase; RBC Morphology Normal
== END 2023-01-17 12:46 | disposition home or self-care (01) ==
LOC: INF 08:32
PROVIDERS: PCP Internal Medicine Adolescent Medicine; Visit Provider Internal Medicine Rheumatology
DX: M05.79 Rheumatoid arthritis with rheumatoid factor of multiple sites without organ or systems involvement (principal); Z51.12 Encounter for antineoplastic immunotherapy
CPT/HCPCS: 85007; 85025; 96413; 96415; J9312

== ENCOUNTER 2023-05-27 08:25 | Outpatient (CLI) | payer OTHER, SELFPAY ==
[2023-05-27] VITALS (11 sets, daily range): BP systolic 120–141; BP diastolic 62–80; PULSE 79–87; RESP 18; O2SAT 96; BMI 43.9
[2023-05-27 08:52] LABS: Basophils # 0.1 K/mm3 (0-0.2); Basophils % 0.3 % (0.1-2.0); Eosinophils # 0.6 K/mm3 (0.0-0.4); Eosinophils % 2.7 % (0.1-12.0); Hematocrit 43.5 % (37.0-47.0); Hemoglobin 13.3 g/dL (12.2-16.2); Lymphocytes # 3.4 K/mm3 (0.7-4.5); Lymphocytes % 14.6 % (10-50); Mean Corpuscular HGB Conc 30.5 g/dL (31.8-35.4); Mean Corpuscular Hemoglobin 25.9 pg (27.0-31.2); Mean Corpuscular Volume 85.1 fl (81-99); Mean Platelet Volume 9.6 fl (7.4-10.4); Monocytes # 1.3 K/mm3 (0.1-1.0); Monocytes % 5.7 % (1.7-9.3); Neutrophils # 17.6 K/mm3 (1.8-7.8); Neutrophils % 76.7 % (37.0-80.0); Platelet Count 464 K/mm3 (142-424); Red Blood Count 5.11 M/mm3 (4.20-5.40); Red Cell Distribution Width 14.5 % (11.5-17.5); White Blood Count 22.9 K/mm3 (4.8-10.8)
[2023-05-27 08:54] LABS: MANUAL DIFFERENTIAL MANUAL DIFFERENTIAL (MANUAL DIFF)
[2023-05-27 09:15] LABS: Eosinophils % 4 % (0-3); Lymphocytes % 18 % (10-50); Monocytes % 2 % (2-9); Neutrophils % 74 % (42-76); Total Cells Counted 100
[2023-05-27 09:16] LABS: Platelet Estimate Slight Increase; RBC Morphology Normal
== END 2023-05-27 12:50 | disposition home or self-care (01) ==
LOC: INF 08:26
PROVIDERS: PCP Internal Medicine Adolescent Medicine; Visit Provider Internal Medicine Rheumatology
DX: M06.9 Rheumatoid arthritis, unspecified (principal); M05.79 Rheumatoid arthritis with rheumatoid factor of multiple sites without organ or systems involvement
CPT/HCPCS: 85007; 85025; 96413; 96415; J9312

== ENCOUNTER 2023-06-10 08:54 | Outpatient (CLI) | payer OTHER, SELFPAY ==
[2023-06-10] VITALS (13 sets, daily range): BP systolic 118–158; BP diastolic 50–79; PULSE 70–87; RESP 20–22; TEMP 36.6; O2SAT 97–98; BMI 41.6
[2023-06-10 09:35] LABS: Basophils # 0.1 K/mm3 (0-0.2); Basophils % 0.4 % (0.1-2.0); Eosinophils # 0.7 K/mm3 (0.0-0.4); Eosinophils % 4.3 % (0.1-12.0); Hematocrit 43.4 % (37.0-47.0); Lymphocytes # 3.2 K/mm3 (0.7-4.5); Lymphocytes % 20.9 % (10-50); Mean Corpuscular Hemoglobin 25.6 pg (27.0-31.2); Mean Corpuscular Volume 85.2 fl (81-99); Mean Platelet Volume 8.7 fl (7.4-10.4); Monocytes # 0.9 K/mm3 (0.1-1.0); Monocytes % 5.8 % (1.7-9.3); Neutrophils # 10.4 K/mm3 (1.8-7.8); Neutrophils % 68.6 % (37.0-80.0); Platelet Count 525 K/mm3 (142-424); Red Cell Distribution Width 14.7 % (11.5-17.5); White Blood Count 15.1 K/mm3 (4.8-10.8)
[2023-06-10 09:39] LABS: MANUAL DIFFERENTIAL MANUAL DIFFERENTIAL (MANUAL DIFF)
[2023-06-10 10:07] LABS: Eosinophils % 5 % (0-3); Lymphocytes % 29 % (10-50); Monocytes % 7 % (2-9); Neutrophils % 58 % (42-76); Total Cells Counted 100
[2023-06-10 10:08] LABS: RBC Morphology Normal
[2023-06-10 10:09] LABS: Hypochromasia 2+; Platelet Estimate Moderate Increase
== END 2023-06-10 15:40 | disposition home or self-care (01) ==
LOC: INF 08:55
PROVIDERS: PCP Internal Medicine Adolescent Medicine; Visit Provider Internal Medicine Rheumatology
DX: M05.79 Rheumatoid arthritis with rheumatoid factor of multiple sites without organ or systems involvement (principal)
CPT/HCPCS: 85007; 85025; 96413; 96415; J9312

== ENCOUNTER 2023-10-15 08:28 | Outpatient (CLI) | payer MEDICARE, SELFPAY ==
[2023-10-15] VITALS (14 sets, daily range): BP systolic 105–150; BP diastolic 60–77; PULSE 85–95; RESP 16–18; O2SAT 98; BMI 38.0
[2023-10-15 09:15] LABS: Basophils # 0.1 K/mm3 (0-0.2); Basophils % 0.5 % (0.1-2.0); Eosinophils # 0.5 K/mm3 (0.0-0.4); Eosinophils % 3.3 % (0.1-12.0); Hematocrit 37.1 % (37.0-47.0); Hemoglobin 11.9 g/dL (12.2-16.2); Lymphocytes # 3.4 K/mm3 (0.7-4.5); Mean Corpuscular Hemoglobin 27.5 pg (27.0-31.2); Mean Platelet Volume 8.6 fl (7.4-10.4); Monocytes # 0.9 K/mm3 (0.1-1.0); Monocytes % 6.3 % (1.7-9.3); Platelet Count 335 K/mm3 (142-424); Red Blood Count 4.31 M/mm3 (4.20-5.40); Red Cell Distribution Width 15.5 % (11.5-17.5); White Blood Count 14.9 K/mm3 (4.8-10.8)
[2023-10-15] MEDS: METHYLPREDNISOLONE SOD SUCC 40MG VIAL 40 MG (09:24)
[2023-10-15] MEDS: diphenhydrAMINE 50MG CAPSULE 50 MG PO (09:24)
[2023-10-15] MEDS: 0.9 % SODIUM CHLORIDE 50 ML 100 ML IV (09:24)
[2023-10-15] MEDS: ACETAMINOPHEN 325MG TAB 650 MG (09:24)
[2023-10-15] MEDS: RITUXIMAB 1,000 MG in 0.9 % SODIUM CHLORIDE 500 ML 5 MG IV (10:03)
== END 2023-10-15 14:00 | disposition home or self-care (01) ==
PROVIDERS: PCP Internal Medicine Adolescent Medicine; Visit Provider Internal Medicine Rheumatology
DX: M05.79 Rheumatoid arthritis with rheumatoid factor of multiple sites without organ or systems involvement (principal); Z79.899 Other long term (current) drug therapy; M06.9 Rheumatoid arthritis, unspecified
CPT/HCPCS: 85025; 96413; 96415; J9312

== ENCOUNTER 2023-12-03 10:20 | Outpatient (CLI) | payer MEDICARE, SELFPAY ==
[2023-12-03] VITALS (13 sets, daily range): BP systolic 110–130; BP diastolic 67–74; PULSE 72–85; RESP 18; TEMP 36.8; O2SAT 99; BMI 43.9
[2023-12-03] MEDS: SODIUM CHLORIDE 0.9% 50ML BAG 50 ML IV (10:56)
[2023-12-03] MEDS: METHYLPREDNISOLONE SOD SUCC 40MG VIAL 40 MG IV (10:56)
[2023-12-03] MEDS: ACETAMINOPHEN 325MG TAB 650 MG PO (10:56)
[2023-12-03 10:57] LABS: Basophils # 0.2 K/mm3 (0-0.2); Basophils % 0.9 % (0.1-2.0); Eosinophils # 0.6 K/mm3 (0.0-0.4); Eosinophils % 3.5 % (0.1-12.0); Hematocrit 45.2 % (37.0-47.0); Hemoglobin 13.9 g/dL (12.2-16.2); Lymphocytes # 4.2 K/mm3 (0.7-4.5); Lymphocytes % 25.4 % (10-50); Mean Corpuscular HGB Conc 30.7 g/dL (31.8-35.4); Mean Corpuscular Hemoglobin 27.5 pg (27.0-31.2); Mean Corpuscular Volume 89.4 fl (81-99); Mean Platelet Volume 8.3 fl (7.4-10.4); Monocytes # 0.9 K/mm3 (0.1-1.0); Monocytes % 5.6 % (1.7-9.3); Neutrophils # 10.8 K/mm3 (1.8-7.8); Neutrophils % 64.7 % (37.0-80.0); Platelet Count 380 K/mm3 (142-424); Red Blood Count 5.06 M/mm3 (4.20-5.40); Red Cell Distribution Width 14.5 % (11.5-17.5); White Blood Count 16.7 K/mm3 (4.8-10.8)
[2023-12-03] MEDS: diphenhydrAMINE 50MG CAPSULE 50 MG PO (10:57)
[2023-12-03 11:23] LABS: MANUAL DIFFERENTIAL MANUAL DIFFERENTIAL (MANUAL DIFF)
[2023-12-03] MEDS: RITUXIMAB 1,000 MG in 0.9 % SODIUM CHLORIDE 400 ML 50 MG IV (11:25)
[2023-12-03 11:59] LABS: Eosinophils % 4 % (0-3); Lymphocytes % 25 % (10-50); Monocytes % 3 % (2-9); Neutrophils % 68 % (42-76); Platelet Estimate Normal; RBC Morphology Normal; Total Cells Counted 100
== END 2023-12-03 14:54 | disposition home or self-care (01) ==
LOC: INF 10:21
PROVIDERS: PCP Internal Medicine Adolescent Medicine; Visit Provider Internal Medicine Rheumatology
DX: M05.79 Rheumatoid arthritis with rheumatoid factor of multiple sites without organ or systems involvement (principal); M06.9 Rheumatoid arthritis, unspecified; J84.9 Interstitial pulmonary disease, unspecified; Z51.12 Encounter for antineoplastic immunotherapy
CPT/HCPCS: 85007; 85025; 96413; 96415; J9312

== ENCOUNTER 2023-12-25 07:52 | Emergency (ER) | payer MEDICARE, SELFPAY ==
[2023-12-25 07:53] VITALS: BP 180/80; PULSE 100; RESP 22; TEMP 36.8; O2SAT 95; BMI 37.3
[2023-12-25 08:03] LABS: Microscopic, Urine URINE MICROSCOPIC (MICROSCOPIC)
[2023-12-25 08:06] LABS: Appearance,Urine CLEAR (Clear); Bilirubin,Urine Negative (Negative); Blood, Urine Negative (Negative); Color,Urine YELLOW (Yellow); Glucose,Urine (UA) 3+ (Negative); Ketones,Urine Negative (Negative); Leukocyte Esterase,Urine Negative (Negative); Nitrate,Urine Negative (Negative); PH,Urine 5.5 (5.0-8.5); Protein,Urine 1+ (Negative); Specific Gravity, Urine 1.025 (1.005-1.030); Urobilinogen,Urine 0.2 EU/dl (0.2)
--- NOTE | 2023-12-25 08:20 | CT_ITS ---
PROCEDURE INFORMATION: Exam: CT Lumbar Spine Without Contrast Exam date and time: 12/25/2023 8:34 AM Age: 63 years old Clinical indication: Low back pain and sciatica; Left; Additional info: Low back pain w L sided sciatica TECHNIQUE: Imaging protocol: Computed tomography of the lumbar spine without contrast. Radiation optimization: All CT scans at this facility use at least one of these dose optimization techniques: automated exposure control; mA and/or kV adjustment per patient size (includes targeted exams where dose is matched to clinical indication); or iterative reconstruction. COMPARISON: CT ABDOMEN PELVIS WO CON 12/25/2023 8:31 AM FINDINGS: Bones/joints: Vertebral body height, alignment and mineralization is within normal limits. There is no evidence for lumbar fracture. Spondylosis is noted with disc bulging and facet arthropathy. At L1-L2 there is no significant canal or foraminal narrowing. At L2-L3 there is disc bulging and facet arthropathy but no significant canal or foraminal narrowing. At L3-L4 there is a broad-based disc bulge with facet arthropathy but no significant canal narrowing and moderate neural foraminal stenosis. At L4-L5 there is broad-based disc bulge with facet arthropathy causing mild canal narrowing and neural foraminal stenosis. At L5-S1 there is no significant canal narrowing and moderate left neural foraminal narrowing due to facet arthropathy. Soft tissues: Unremarkable. IMPRESSION: Lumbar spondylosis as described.
--- NOTE | 2023-12-25 08:20 | CT_ITS ---
PROCEDURE INFORMATION: Exam: CT Abdomen And Pelvis Without Contrast Exam date and time: 12/25/2023 8:31 AM Age: 63 years old Clinical indication: Abdominal pain; Flank; Other: Bilateral; Additional info: Bilateral flank pain, r>l, dysuria TECHNIQUE: Imaging protocol: Computed tomography of the abdomen and pelvis without contrast. Radiation optimization: All CT scans at this facility use at least one of these dose optimization techniques: automated exposure control; mA and/or kV adjustment per patient size (includes targeted exams where dose is matched to clinical indication); or iterative reconstruction. COMPARISON: CT ABDOMEN PELVIS WO CON 01/11/2021 1:46 AM FINDINGS: Lungs: Noncontrast technique limits assessment. There is interstitial disease noted lung bases worst in the lingula and right middle lobe. A 4 mm calcified granuloma is noted in the deep lateral right costophrenic sulcus. Liver: Normal. No mass. Gallbladder and bile ducts: The gallbladder is moderately distended. Pancreas: Normal. No ductal dilation. Spleen: Calcified splenic granulomas are noted. Adrenal glands: Normal. No mass. Kidneys and ureters: The kidneys are normal in size and contour without evidence for hydronephrosis or nephrolithiasis. Stomach and bowel: There is no evidence for small bowel obstruction. Moderate stool in the proximal half of colon. Scattered diverticular disease is noted. Appendix: No evidence of appendicitis. Intraperitoneal space: Unremarkable. No free air. No significant fluid collection. Vasculature: Unremarkable. No abdominal aortic aneurysm. Lymph nodes: Unremarkable. No enlarged lymph nodes. Urinary bladder: The urinary bladder is contracted. Reproductive: Gynecologic structures are not identified and may be atrophic or surgically absent. Bones/joints: Degenerative changes are noted in the bones. Soft tissues: Unremarkable. IMPRESSION: Limited noncontrast study. Granulomatous disease. Right-sided constipation. Diverticulosis.
--- NOTE | 2023-12-25 08:21 | ED_ITS ---
Discharge Plan Disposition Patient Disposition: Home, Self-Care Condition: Good Prescriptions Prescriptions: New lidocaine [Lidoderm] 5 % adhesive patch,medicated 1 patch topical DAILY Qty: 15 0RF Rx Instructions: leave on most painful area for up to 12 hrs methocarbamol 750 mg tablet 750 mg PO Q8H PRN (Reason: pain) Qty: 20 0RF ketorolac 10 mg tablet 10 mg PO Q6H PRN (Reason: pain) 1 Days Qty: 20 0RF polyethylene glycol 3350 [Miralax] 17 gram/dose powder 17 g PO DAILY Qty: 510 0RF sennosides [senna] 8.6 mg tablet 8.6 mg PO DAILY Qty: 30 0RF No Action Ozempic 0.25 mg or 0.5 mg (2 mg/3 mL) pen injector 2 mg SQ WEEKLY Farxiga 10 mg tablet 10 mg PO DAILY Patient Comments: TAKE 1 TABLET BY MOUTH ONCE DAILY diclofenac sodium 1 % gel 2 g topical QID Rx Instructions: apply to single elbow, wrist or hand; for hand includes palm/fingers/back of hand albuterol sulfate 90 mcg/actuation HFA aerosol inhaler 2 inh IH Q6H PRN (Reason: shortness of breath or wheezing) 90 Days Qty: 8.5 3RF isosorbide mononitrate 60 mg tablet extended release 24 hr 60 mg PO DAILY Qty: 90 1RF spironolactone 25 mg tablet 25 mg PO DAILY Qty: 90 1RF metoprolol succinate 25 mg tablet extended release 24 hr See Rx Instructions .ROUTE .COMPLEX Qty: 90 3RF Dose Instruction: TAKE 1 TABLET BY MOUTH ONCE DAILY FOR HYPERTENSION Rx Instructions: TAKE 1 TABLET BY MOUTH ONCE DAILY FOR HYPERTENSION esomeprazole magnesium 40 mg capsule,delayed release(DR/EC) See Rx Instructions .ROUTE .COMPLEX Qty: 90 0RF Dose Instruction: TAKE 1 CAPSULE BY MOUTH ONCE DAILY FOR GERD Rx Instructions: TAKE 1 CAPSULE BY MOUTH ONCE DAILY FOR GERD Trelegy Ellipta 100-62.5-25 mcg blister with device 1 inh inhalation DAILY 90 Days Qty: 90 3RF fluticasone propionate 50 mcg/actuation spray,suspension 2 spray INTRANASAL DAILY 90 Days Qty: 15.8 3RF Rx Instructions: administer into each nostril metformin 500 mg tablet 1,000 mg PO DAILY (DME) inhalational spacing device 1 EACH spacer 1 each MC Q6H Qty: 1 0RF Rx Instructions: Use with Albuterol HFA. mycophenolate mofetil 500 MG tablet 1,500 mg PO BID insulin lispro 100 UNIT/ML insulin pen 50 unit SQ DAILY fluticasone propionate [Flonase Allergy Relief] 50 mcg/actuation spray,suspension 1 spray NS BID Rx Instructions: administer into each nostril Trelegy Ellipta 100-62.5-25 mcg blister with device 1 inh inhalation DAILY aspirin 81 MG tablet,delayed release (DR/EC) 81 mg PO HS albuterol sulfate 2.5 MG/NEB solution for nebulization 2.5 mg IH DAILYP PRN (Reason: shortness of air) atorvastatin 40 MG tablet 40 mg PO DAILY Referrals Follow up/Referrals: Eben Liu MD [Primary Care Provider] - See instructions Activity Restrictions/Add. Instructions Additional Instructions/Restrictions: You were evaluated in the emergency department today. At this time, your labs are reassuring. We feel that your symptoms are likely related to sciatica and musculoskeletal pain. You also have constipation diagnosed on CT scan. Please supervisor opening and picking your prescriptions at the pharmacy and take them as prescribed. You may also take Tylenol in addition to these medications. Follow-up closely with your primary care provider over the next 3 days for reassessment to ensure that you are still doing well. Return to the emergency department for any new or worsening symptoms. Clinical Impressions Clinical Impression: Lumbar spondylosis, Sciatica of left side, Constipation Instructions Patient Instructions: DI for Constipation, DI for Back Pain With Sciatica Discharge ED Provider: [facility] HPI General Chief complaint: Urogenital-Female Stated complaint: Pain in back and hips Time Seen by Provider: 12/25/23 07:54 Mode of Arrival: Wheelchair Source of Information: Patient Limitations: No Limitations Description of Symptoms (Recalled from ER Triage Doc. by RN): Patient reports back ache, kidney pain, nausea and pain with urination. States it started early this morning and that she stated that she took one of her husbands oxycotin this morning around 330am and that it did not relieve her pain. History of Present Illness HPI narrative: This patient is a 63-year-old female with history of hypertension, hyperlipidemia, diabetes, interstitial lung disease, chronic respiratory failure on supplemental oxygen, CAD, and rheumatoid arthritis presenting to the emergency department for evaluation with concern for flank pain and dysuria. Patient reports that she woke up in the middle the night feeling like she had to go pee, and when she went to urinate she had significant pain with urination and felt like she could not empty her bladder all the way. She notes that she was also experiencing right flank pain at that time with a notable history of kidney stones, however she has since started having left-sided flank/low back pain that radiates down into her left hip like sciatica. She notes she took an OxyContin at home with no improvement. She also tried to take an Advil, acetaminophen, nation, but she vomited shortly afterwards. The pain has become much more severe, and given the fact that she has been vomiting she decided to come in. She notes she still having urinary frequency, urgency, and back pain. She also notes she had an episode of diarrhea in the middle of the night, but denies any changes in bowel movements otherwise. She denies any fevers, chills, chest pain, shortness of breath, cough, congestion, or other concerns. Related Data Home Medications Medication Instructions Recorded Confirmed aspirin 81 mg tablet,delayed 81 mg PO [facility] 10/29/19 10/15/23 release insulin lispro 100 unit/mL 50 unit SQ DAILY Diabetes 07/12/20 10/15/23 subcutaneous pen mycophenolate mofetil 500 mg tablet 1,500 mg PO BID lung transplant 07/12/20 10/15/23 albuterol sulfate 2.5 mg/3 mL 2.5 mg inhalation DAILYP PRN 01/11/21 10/15/23 (0.083 %) solution for nebulization shortness of air atorvastatin 40 mg tablet 40 mg PO DAILY HYPERLIPIDEMIA 03/27/22 10/15/23 fluticasone fur. 100 mcg-umeclid 1 inh inhalation DAILY LUNG DISEASE 08/28/22 10/15/23 62.5 mcg-vilant 25 mcg inhalat.powder (Trelegy Ellipta) fluticasone propionate 50 1 spray intranasal BID LUNG DISEASE 08/28/22 10/15/23 mcg/actuation nasal spray,suspension (Flonase Allergy Relief) metformin 500 mg tablet 1,000 mg PO DAILY Diabetes 12/26/22 10/15/23 dapagliflozin propanediol 10 mg 10 mg PO DAILY 07/02/23 10/15/23 tablet (Farxiga) diclofenac sodium 1 % topical gel 2 g topical QID 07/02/23 10/15/23 semaglutide 0.25 mg or 0.5 mg (2 2 mg SQ WEEKLY 07/02/23 10/15/23 mg/3 mL) subcutaneous pen injector (Ozempic) Previous Rx's Medication Instructions Recorded inhalational spacing device ##1 03/18/19 albuterol sulfate 90 mcg/actuation 2 inh inhalation Q6H PRN shortness 05/26/23 aerosol inhaler of breath or wheezing 90 days #8.5 grams isosorbide mononitrate 60 mg 60 mg PO DAILY hypertension #90 11/05/23 tablet,extended release 24 hr tabs spironolactone 25 mg tablet 25 mg PO DAILY FLUID RETENTION #90 11/05/23 tabs metoprolol succinate 25 mg See Rx Instructions .Route 11/12/23 tablet,extended release 24 hr .COMPLEX #90 tabs esomeprazole magnesium 40 mg See Rx Instructions .Route 11/17/23 capsule,delayed release .COMPLEX #90 caps fluticasone fur. 100 mcg-umeclid 1 inh inhalation DAILY 90 days #90 11/17/23 62.5 mcg-vilant 25 mcg ea inhalat.powder (Trelegy Ellipta) fluticasone propionate 50 2 spray intranasal DAILY 90 days 12/15/23 mcg/actuation nasal #15.8 mL spray,suspension ketorolac 10 mg tablet 10 mg PO Q6H PRN pain 1 day #20 12/25/23 tabs lidocaine 5 % topical patch 1 patch topical DAILY #15 ea 12/25/23 (Lidoderm) methocarbamol 750 mg tablet 750 mg PO Q8H PRN pain #20 tabs 12/25/23 polyethylene glycol 3350 17 17 g PO DAILY #510 grams 12/25/23 gram/dose oral powder (Miralax) sennosides 8.6 mg tablet (senna) 8.6 mg PO DAILY #30 tabs 12/25/23 Allergies Allergy/AdvReac Type Severity Reaction Status Date / Time leflunomide [From ARAVA] Allergy Severe I-RASH Verified 07/02/23 10:07 Penicillins [PENICILLINS] Allergy Intermediate Unknown Verified 07/02/23 10:07 allergy reaction Sulfa (Sulfonamide Allergy Unknown Unknown Verified 07/02/23 10:07 Antibiotics) allergy [SULFA (SULFONAMIDE reaction ANTIBIOTICS)] [facility] Disclaimer: The information contained in this section may have been updated after the patient was seen, as this information can be updated by other users. Medical History Chronic cough Allergic rhinitis History of rheumatoid arthritis Chronic hypoxemic respiratory failure Pneumonia due to COVID-19 virus Restrictive lung disease ILD (interstitial lung disease) Eosinophilia Mild persistent asthma Asthma Diastolic dysfunction HLD (hyperlipidemia) HTN (hypertension) Diabetes mellitus Unstable angina Gastroesophageal reflux disease Cardiac murmur Oxygen dependent Atypical angina Dyspnea Chest pain Rheumatoid arthritis COPD (chronic obstructive pulmonary disease) Surgical History Hx of cardiac catheterization Hx of tubal ligation Hx of total hysterectomy Hx of appendectomy Family History Other Cancer Hypertension Kidney disease Social History Smoking Status: Unknown if ever smoked second hand exposure: No alcohol intake: never current occupational status: retired Travel in the last 8 weeks: None household members: spouse housing: house current occupational exposures/hazards: No caffeine: Yes ROS Obtained: Yes All systems reviewed & no additional complaints except as documented Physical Exam General General appearance: alert, in no apparent distress and obese Head Head exam: atraumatic and normocephalic Eye Eye exam: Present normal appearance, PERRL and EOMI ENT ENT exam: Present normal exam, normal oropharynx, mucous membranes moist and normal external ear exam Neck Neck exam: Present normal inspection, full ROM and trachea midline; Absent tenderness Chest Chest inspection: Present normal inspection and symmetric chest wall rise; Absent tenderness Respiratory Respiratory exam: Present normal lung sounds bilaterally; Absent respiratory distress, wheezes, stridor or accessory muscle use Cardiovascular Cardiovascular exam: Present regular rate and normal rhythm Abdominal Exam Abdominal exam: Present soft, tenderness (Suprapubic) and normal bowel sounds; Absent distention, guarding, rebound or rigidity Extremities Exam Extremities exam: Present normal inspection, full ROM and normal capillary refill; Absent tenderness or edema Back Exam Back exam: Present full ROM, CVA tenderness (R) and CVA tenderness (L); Absent tenderness Neurological Exam Neurological exam: Present alert, oriented X3, CN II-XII intact and normal gait; Absent motor sensory deficit Psychiatric Psychiatric exam: Present normal affect and normal mood Skin Skin exam: Present warm and dry Medical Decision Making Medical Records Medical records reviewed: Yes I reviewed the patient's medical records. Martin Inquiry Pt receiving controlled substance: No Vital Signs: 12/25/23 07:53 12/25/23 08:56 12/25/23 09:01 Temperature 98.2 F Temperature Source Oral Pulse Rate 81 81 Pulse Rate [Radial] 100 H Respiratory Rate 22 Blood Pressure 94/53 L 84/51 L Blood Pressure [Right Arm] 180/80 H Blood Pressure Mean [Right Arm] 113 Blood Pressure Source [Right Arm] Automatic Cuff Blood Pressure Position [Right Arm] Sitting 02 Sat by Pulse Oximetry 95 97 96 Oxygen Delivery Method Nasal Cannula Room Air Room Air Oxygen Flow Rate (LPM) 1 12/25/23 09:30 12/25/23 10:44 Temperature 98.2 F Temperature Source Pulse Rate 83 83 Pulse Rate [Radial] Respiratory Rate 16 Blood Pressure 106/68 L 106/88 L Blood Pressure [Right Arm] Blood Pressure Mean [Right Arm] Blood Pressure Source [Right Arm] Blood Pressure Position [Right Arm] 02 Sat by Pulse Oximetry 96 Oxygen Delivery Method Room Air Oxygen Flow Rate (LPM) Lab Data Lab results reviewed: Yes I reviewed the patient's lab results. Lab Results 12/25/23 07:56: Urine Color Yellow, Urine Appearance Clear, Urine pH 5.5, Ur Specific [place] 1.025, Urine Protein 1+, Urine Glucose (UA) 3+, Urine Ketones Negative, Urine Blood Negative, Urine Nitrate Negative, Urine Bilirubin Negative, Urine Urobilinogen 0.2, Ur Leukocyte Esterase Negative, Urine RBC None, Urine WBC None, Ur Squamous Epith Cells Occasional, Urine Bacteria Trace, Hyaline Casts Occasional 12/25/23 08:13: WBC 18.9 H, RBC 4.89, Hgb 13.4, Hct 43.5, MCV 88.9, MCH 27.5, M CHC 30.9 L, RDW 14.7, Plt Count 410, MPV 9.2, Neut % (Auto) 76.3, Lymph % (Auto) 17.7, [place] % (Auto) 4.6, Eos % (Auto) 0.8, Baso % (Auto) 0.5, Neut # (Auto) 14.4 H, Lymph # (Auto) 3.4, [place] # (Auto) 0.9, Eos # (Auto) 0.2, Baso # (Auto) 0.1, Total Counted 100, Neutrophils % (Manual) 68, Band Neutrophils % 10.0 H, Lymphocytes % (Manual) 18, Monocytes % (Manual) 4, Platelet Estimate Normal, RBC Morphology Normal, Sodium 137, Potassium 4.6, Chloride 105, Carbon Dioxide 26, Anion Gap 10.6, BUN 19 H, Creatinine 0.60, Estimated Creat Clear 85, Estimated GFR 100, Est GFR ( Amer) 121, Glucose 194 H, Calcium 9.4, Total Bilirubin 0.7, AST 31, ALT 30, Alkaline Phosphatase 105, Total Protein 7.0, Albumin 3.9, Globulin 3.1, Albumin/Globulin Ratio 1.3 12/25/23 08:13 12/25/23 08:13 Orders (Tests/Meds): ED MEDICATIONS Discontinued Medications Generic Name Dose Route Start Last Admin Trade Name Leslie PRN Reason Stop Dose Admin Acetaminophen 1,000 mg 12/25/23 08:21 12/25/23 08:27 Acetaminophen 500mg Tab PO 12/25/23 08:22 1,000 mg ONCE ONE Administration Lactated Ringer's 1,000 mls @ 999 mls/hr 12/25/23 08:21 12/25/23 08:27 Lactated Ringer's 1000 Ml Bag IV 12/25/23 09:21 999 mls/hr .Q1H1M ONE Administration Ketorolac Tromethamine 15 mg 12/25/23 08:21 12/25/23 08:27 Ketorolac 30mg/Ml Vial IV 12/25/23 08:22 15 mg ONCE ONE Administration Lidocaine 1 each 12/25/23 09:42 12/25/23 09:51 Lidocaine 5% Transdermal Patch TP 12/25/23 09:43 1 each ONCE ONE Administration Methocarbamol 500 mg 12/25/23 09:47 12/25/23 09:51 Methocarbamol 500mg Tablet PO 12/25/23 09:48 500 mg ONCE ONE Administration Morphine Sulfate 4 mg 12/25/23 08:21 12/25/23 08:27 Morphine 4mg/Ml Syringe IV 12/25/23 08:22 4 mg ONCE ONE Administration Ondansetron HCl 4 mg 12/25/23 08:21 12/25/23 08:27 Ondansetron 4mg/2ml Vial IV 12/25/23 08:22 4 mg ONCE ONE Administration Sodium Chloride 10 ml 12/25/23 08:15 Sodium Chloride 0.9% 10ml Flush Syringe IV 01/24/24 08:14 NEEDED PRN Maintain IV Site ORDERS Category Date Time Status CT abdomen pelvis wo con Stat Cat Scan 12/25/23 08:[address] lumbar spine wo con Stat Cat Scan 12/25/23 08:20 Completed Complete Blood Count Auto Diff Stat Lab 12/25/23 08:13 Completed Comprehensive Metabolic Panel Stat Lab 12/25/23 08:13 Completed UA [Urinalysis and Microscopic] Stat Lab 12/25/23 07:56 Completed Urine Culture Stat Micro 12/25/23 07:56 Received Medical Decision Narrative: In summary, this patient is a 63-year-old female presenting to the Emergency Department for evaluation of bilateral flank pain, dysuria, and urinary frequency. Differential diagnoses considered include but are not limited to pyelonephritis, cystitis, ureterolithiasis, MARIANA, musculoskeletal back pain. Ruling out the most morbid conditions drove assessment. It should be noted patient's history includes diabetes and rheumatoid arthritis which may or may not be at goal therapy. This complicates all aspects of care by increasing patient's risk for morbidity. I reviewed patient's past medical records and noted prior urine culture that grew Klebsiella pneumoniae. On exam, the patient is uncomfortable appearing. She is mildly hypertensive and tachycardic, which I suspect is due to pain. Workup included CBC, CMP, urinalysis, urine culture, and CT abdomen and pelvis without IV contrast. She was given a bolus of IV fluids as well as IV Toradol, oral Tylenol, IV morphine, IV Zofran. I independently interpreted CT scans prior to the radiologist read and noted large stool burden but I did not appreciate any kidney stones or hydronephrosis. Please see their read for final interpretation. Labs were obtained that demonstrated leukocytosis, which is chronic for the patient and not significantly outside of her baseline in the setting of rheumatoid arthritis. She does not have any other significantly concerning abnormalities, and urinalysis is not concerning for infection. On reassessment, patient had good improvement after administration of event as above. She states she is having only sciatic type pain now with spasms in her left hip radiating down the posterior aspect of her left leg. No saddle anesthesia, incontinence, or other concerns. She states that the spasms are continued, so she was given a Lidoderm patch as well as oral Robaxin. She notes that this could be related to increased activity, as she states that she is been pressure washing the house and doing other activities that she does not typically do. On multiple subsequent reassessments, the patient is resting comfortably with improved symptoms. She is able to ambulate without difficulty and is tolerating oral intake without difficulty as well. At this time, it is felt the patient is appropriate for discharge. She was given prescriptions for Robaxin, Toradol, and Lidoderm patches for symptomatic improvement as well as MiraLAX and senna for treatment of her constipation. She was given strict return precautions and was discharged after all questions were answered. Critical Care Critical Care Time Critical Care Time: No
[2023-12-25] MEDS: ONDANSETRON 4MG/2ML VIAL 4 MG IV (08:27)
[2023-12-25] MEDS: ACETAMINOPHEN 500MG TAB 1000 MG PO (08:27)
[2023-12-25] MEDS: LACTATED RINGERS 1000ML 1,000 ML 999 ML IV (08:27)
[2023-12-25] MEDS: KETOROLAC 30MG/ML VIAL 15 MG IV (08:27)
[2023-12-25] MEDS: MORPHINE 4MG/ML SYRINGE 4 MG IV (08:27)
[2023-12-25 08:31] LABS: Chloride 105 mmol/L (98-107); Potassium 4.6 mmoL/L (3.5-5.1); Sodium 137 mmol/L (136-145)
[2023-12-25 08:34] LABS: Alanine Aminotransferase 30 U/L (12-78); Albumin Level 3.9 g/dl (3.5-5.0); Albumin/Globulin Ratio 1.3 (1.1-1.8); Alkaline Phosphatase 105 U/L (38-126); Anion Gap 10.6 mEq/L (5-15); Aspartate Amino Transferase 31 U/L (14-36); Bilirubin,Total 0.7 mg/dl (0.2-1.3); Blood Urea Nitrogen 19 mg/dl (7-17); Calcium 9.4 mg/dl (8.4-10.2); Carbon Dioxide 26 mmol/L (22.0-30.0); Creatinine Clearance Estimated 85 mL/min (50-200); Estimated Glomerular Filt Rate 100 ml/min (>60); GFR (African American) 121 ML/MIN (>60); Globulin 3.1 g/dL (1.3-3.2); Glucose 194 mg/dl (74-100)
[2023-12-25 08:53] LABS: Bacteria,Urine Trace /lpf; Hyaline Casts,Urine Occasional #/lpf (0); Squamous Epithelial Cell,Urine Occasional #/hpf (0-5)
[2023-12-25 08:56] VITALS: BP 94/53; PULSE 81; O2SAT 97
[2023-12-25 09:01] VITALS: BP 84/51; PULSE 81; O2SAT 96
[2023-12-25 09:23] LABS: Basophils # 0.1 K/mm3 (0-0.2); Basophils % 0.5 % (0.1-2.0); Eosinophils # 0.2 K/mm3 (0.0-0.4); Eosinophils % 0.8 % (0.1-12.0); Hematocrit 43.5 % (37.0-47.0); Hemoglobin 13.4 g/dL (12.2-16.2); Lymphocytes # 3.4 K/mm3 (0.7-4.5); Lymphocytes % 17.7 % (10-50); Mean Corpuscular HGB Conc 30.9 g/dL (31.8-35.4); Mean Corpuscular Hemoglobin 27.5 pg (27.0-31.2); Mean Corpuscular Volume 88.9 fl (81-99); Mean Platelet Volume 9.2 fl (7.4-10.4); Monocytes # 0.9 K/mm3 (0.1-1.0); Monocytes % 4.6 % (1.7-9.3); Neutrophils # 14.4 K/mm3 (1.8-7.8); Neutrophils % 76.3 % (37.0-80.0); Platelet Count 410 K/mm3 (142-424); Red Blood Count 4.89 M/mm3 (4.20-5.40); Red Cell Distribution Width 14.7 % (11.5-17.5); White Blood Count 18.9 K/mm3 (4.8-10.8)
[2023-12-25 09:30] VITALS: BP 106/68; PULSE 83; O2SAT 96
[2023-12-25 09:30] LABS: MANUAL DIFFERENTIAL MANUAL DIFFERENTIAL (MANUAL DIFF)
[2023-12-25] MEDS: LIDOCAINE 5% TRANSDERMAL PATCH 1 EACH TP (09:51)
[2023-12-25] MEDS: METHOCARBAMOL 500MG TABLET 500 MG PO (09:51)
--- NOTE | 2023-12-25 10:00 | PC.NURSE ---
pt was given a breakfast tray no other needs at this time, visitor in room and call light in reach
[2023-12-25 10:44] VITALS: BP 106/88; PULSE 83; RESP 16; TEMP 36.8
[2023-12-25 11:01] LABS: Lymphocytes % 18 % (10-50); Monocytes % 4 % (2-9); Neutrophils % 68 % (42-76); Total Cells Counted 100
[2023-12-25 11:03] LABS: Platelet Estimate Normal; RBC Morphology Normal
== END 2023-12-25 10:44 | disposition home or self-care (01) ==
PROVIDERS: Emergency Provider Emergency Medicine; PCP Internal Medicine Adolescent Medicine
DX: M47.816 Spondylosis without myelopathy or radiculopathy, lumbar region (principal); M54.32 Sciatica, left side; R30.0 Dysuria; B96.89 Other specified bacterial agents as the cause of diseases classified elsewhere; R11.2 Nausea with vomiting, unspecified; K59.00 Constipation, unspecified; J84.9 Interstitial pulmonary disease, unspecified; I11.9 Hypertensive heart disease without heart failure; I25.119 Atherosclerotic heart disease of native coronary artery with unspecified angina pectoris; E78.5 Hyperlipidemia, unspecified; E11.9 Type 2 diabetes mellitus without complications; M06.9 Rheumatoid arthritis, unspecified; K21.9 Gastro-esophageal reflux disease without esophagitis; J44.9 Chronic obstructive pulmonary disease, unspecified; Z79.4 Long term (current) use of insulin; Z79.84 Long term (current) use of oral hypoglycemic drugs; Z79.85 Long-term (current) use of injectable non-insulin antidiabetic drugs
CPT/HCPCS: 72131; 74176; 80053; 81001; 85007; 85025; 87086; 96361; 96374; 96375; 99285; J2405

== ENCOUNTER 2023-12-28 16:15 | Emergency (ER) | payer MEDICARE, SELFPAY ==
[2023-12-28 16:16] VITALS: BP 173/104; PULSE 107; RESP 18; TEMP 36.6; O2SAT 93; BMI 37.3
[2023-12-28 16:31] VITALS: BP 164/85; PULSE 94; O2SAT 95
--- NOTE | 2023-12-28 16:46 | PC.NURSE ---
DR BURNS AT BEDSIDE
--- NOTE | 2023-12-28 16:57 | HMH.EDGENADL ---
Discharge Plan Disposition Patient Disposition: Home, Self-Care Prescriptions Prescriptions: New gabapentin 300 mg capsule See Rx Instructions .ROUTE .COMPLEX Qty: 30 0RF Rx Instructions: 300 mg orally day 1, 600 mg orally daily 2, 900 mg orally daily thereafter starting day 3. No Action Ozempic 0.25 mg or 0.5 mg (2 mg/3 mL) pen injector 2 mg SQ WEEKLY Farxiga 10 mg tablet 10 mg PO DAILY Patient Comments: TAKE 1 TABLET BY MOUTH ONCE DAILY diclofenac sodium 1 % gel 2 g topical QID Rx Instructions: apply to single elbow, wrist or hand; for hand includes palm/fingers/back of hand albuterol sulfate 90 mcg/actuation HFA aerosol inhaler 2 inh IH Q6H PRN (Reason: shortness of breath or wheezing) 90 Days Qty: 8.5 3RF isosorbide mononitrate 60 mg tablet extended release 24 hr 60 mg PO DAILY Qty: 90 1RF spironolactone 25 mg tablet 25 mg PO DAILY Qty: 90 1RF metoprolol succinate 25 mg tablet extended release 24 hr See Rx Instructions .ROUTE .COMPLEX Qty: 90 3RF Dose Instruction: TAKE 1 TABLET BY MOUTH ONCE DAILY FOR HYPERTENSION Rx Instructions: TAKE 1 TABLET BY MOUTH ONCE DAILY FOR HYPERTENSION esomeprazole magnesium 40 mg capsule,delayed release(DR/EC) See Rx Instructions .ROUTE .COMPLEX Qty: 90 0RF Dose Instruction: TAKE 1 CAPSULE BY MOUTH ONCE DAILY FOR GERD Rx Instructions: TAKE 1 CAPSULE BY MOUTH ONCE DAILY FOR GERD Trelegy Ellipta 100-62.5-25 mcg blister with device 1 inh inhalation DAILY 90 Days Qty: 90 3RF fluticasone propionate 50 mcg/actuation spray,suspension 2 spray INTRANASAL DAILY 90 Days Qty: 15.8 3RF Rx Instructions: administer into each nostril metformin 500 mg tablet 1,000 mg PO DAILY (DME) inhalational spacing device 1 EACH spacer 1 each MC Q6H Qty: 1 0RF Rx Instructions: Use with Albuterol HFA. mycophenolate mofetil 500 MG tablet 1,500 mg PO BID insulin lispro 100 UNIT/ML insulin pen 50 unit SQ DAILY fluticasone propionate [Flonase Allergy Relief] 50 mcg/actuation spray,suspension 1 spray NS BID Rx Instructions: administer into each nostril Trelegy Ellipta 100-62.5-25 mcg blister with device 1 inh inhalation DAILY lidocaine [Lidoderm] 5 % adhesive patch,medicated 1 patch topical DAILY Qty: 15 0RF Rx Instructions: leave on most painful area for up to 12 hrs methocarbamol 750 mg tablet 750 mg PO Q8H PRN (Reason: pain) Qty: 20 0RF ketorolac 10 mg tablet 10 mg PO Q6H PRN (Reason: pain) 1 Days Qty: 20 0RF polyethylene glycol 3350 [Miralax] 17 gram/dose powder 17 g PO DAILY Qty: 510 0RF sennosides [senna] 8.6 mg tablet 8.6 mg PO DAILY Qty: 30 0RF aspirin 81 MG tablet,delayed release (DR/EC) 81 mg PO HS albuterol sulfate 2.5 MG/NEB solution for nebulization 2.5 mg IH DAILYP PRN (Reason: shortness of air) atorvastatin 40 MG tablet 40 mg PO DAILY Referrals Follow up/Referrals: Eben Liu MD [Primary Care Provider] - See instructions Activity Restrictions/Add. Instructions Additional Instructions/Restrictions: At this time it was felt you are safe to be discharged home. If new or worsening symptoms please do not hesitate to return the emergency department. Please follow-up with Dr. Liu as discussed and take your medications as prescribed. Clinical Impressions Clinical Impression: Sciatica, Bulging discs Discharge ED Provider: Chuckie Suggs General Adult HPI General Chief complaint: Extremity Problem,Nontraumatic Stated complaint: LT leg pain, Time Seen by Provider: 12/28/23 16:25 Mode of Arrival: Ambulatory Source of Information: Patient Limitations: No Limitations Description of Symptoms (Recalled from ER Triage Doc. by RN): left sciatic pain. was here on , pain not any better despite toradol and robaxin History of Present Illness HPI narrative: Patient is a 63-year-old female past medical history of rheumatoid arthritis status post chronic steroid use, restrictive lung disease who presents emergency department for repeat evaluation of leg pain and back pain. Patient was seen here on the where workup was conducted with abdomen pelvis CT, lumbar spine CT, hematologic labs and patient was discharged with outpatient management. She has been trying physical therapies at home however she intermittently has lancinating pain down the left lumbosacral area of her back consistent with prior radiating down past her knee into the sole of her foot. No new trauma. Patient has been attempting to take her medications at home however has vomiting with Toradol. No other acute complaints at this time. CT lumbar spine remarkable for bulging disks. No other acute pathology. Related Data Home Medications Medication Instructions Recorded Confirmed aspirin 81 mg tablet,delayed 81 mg PO heart health 10/29/19 10/15/23 release insulin lispro 100 unit/mL 50 unit SQ DAILY Diabetes 07/12/20 10/15/23 subcutaneous pen mycophenolate mofetil 500 mg tablet 1,500 mg PO BID lung transplant 07/12/20 10/15/23 albuterol sulfate 2.5 mg/3 mL 2.5 mg inhalation DAILYP PRN 01/11/21 10/15/23 (0.083 %) solution for nebulization shortness of air atorvastatin 40 mg tablet 40 mg PO DAILY HYPERLIPIDEMIA 03/27/22 10/15/23 fluticasone fur. 100 mcg-umeclid 1 inh inhalation DAILY LUNG DISEASE 08/28/22 10/15/23 62.5 mcg-vilant 25 mcg inhalat.powder (Trelegy Ellipta) fluticasone propionate 50 1 spray intranasal BID LUNG DISEASE 08/28/22 10/15/23 mcg/actuation nasal spray,suspension (Flonase Allergy Relief) metformin 500 mg tablet 1,000 mg PO DAILY Diabetes 12/26/22 10/15/23 dapagliflozin propanediol 10 mg 10 mg PO DAILY 07/02/23 10/15/23 tablet (Farxiga) diclofenac sodium 1 % topical gel 2 g topical QID 07/02/23 10/15/23 semaglutide 0.25 mg or 0.5 mg (2 2 mg SQ WEEKLY 07/02/23 10/15/23 mg/3 mL) subcutaneous pen injector (Ozempic) Previous Rx's Medication Instructions Recorded inhalational spacing device ##1 03/18/19 albuterol sulfate 90 mcg/actuation 2 inh inhalation Q6H PRN shortness 05/26/23 aerosol inhaler of breath or wheezing 90 days #8.5 grams isosorbide mononitrate 60 mg 60 mg PO DAILY hypertension #90 11/05/23 tablet,extended release 24 hr tabs spironolactone 25 mg tablet 25 mg PO DAILY FLUID RETENTION #11/05/23 tabs metoprolol succinate 25 mg See Rx Instructions .Route 11/12/23 tablet,extended release 24 hr .COMPLEX #90 tabs esomeprazole magnesium 40 mg See Rx Instructions .Route 11/17/23 capsule,delayed release .COMPLEX #90 caps fluticasone fur. 100 mcg-umeclid 1 inh inhalation DAILY 90 days #90 11/17/23 62.5 mcg-vilant 25 mcg ea inhalat.powder (Trelegy Ellipta) fluticasone propionate 50 2 spray intranasal DAILY 90 days 12/15/23 mcg/actuation nasal #15.8 mL spray,suspension ketorolac 10 mg tablet 10 mg PO Q6H PRN pain 1 day #20 12/25/23 tabs lidocaine 5 % topical patch 1 patch topical DAILY #15 ea 12/25/23 (Lidoderm) methocarbamol 750 mg tablet 750 mg PO Q8H PRN pain #20 tabs 12/25/23 polyethylene glycol 3350 17 17 g PO DAILY #510 grams 12/25/23 gram/dose oral powder (Miralax) sennosides 8.6 mg tablet (senna) 8.6 mg PO DAILY #30 tabs 12/25/23 gabapentin 300 mg capsule See Rx Instructions .Route 12/28/23 .COMPLEX Sciatica #30 caps Allergies Allergy/AdvReac Type Severity Reaction Status Date / Time leflunomide [From ARAVA] Allergy Severe I-RASH Verified 07/02/23 10:07 Penicillins [PENICILLINS] Allergy Intermediate Unknown Verified 07/02/23 10:07 allergy reaction Sulfa (Sulfonamide Allergy Unknown Unknown Verified 07/02/23 10:07 Antibiotics) allergy [SULFA (SULFONAMIDE reaction ANTIBIOTICS)] [facility] Disclaimer: The information contained in this section may have been updated after the patient was seen, as this information can be updated by other users. Medical History Chronic cough Allergic rhinitis History of rheumatoid arthritis Chronic hypoxemic respiratory failure Pneumonia due to COVID-19 virus Restrictive lung disease ILD (interstitial lung disease) Eosinophilia Mild persistent asthma Asthma Diastolic dysfunction HLD (hyperlipidemia) HTN (hypertension) Diabetes mellitus Unstable angina Gastroesophageal reflux disease Cardiac murmur Oxygen dependent Atypical angina Dyspnea Chest pain Rheumatoid arthritis COPD (chronic obstructive pulmonary disease) Surgical History Hx of cardiac catheterization Hx of tubal ligation Hx of total hysterectomy Hx of appendectomy Family History Other Cancer Hypertension Kidney disease Social History Smoking Status: Never smoker second hand exposure: No alcohol intake: never current occupational status: retired Travel in the last 8 weeks: None household members: spouse housing: house current occupational exposures/hazards: No caffeine: Yes ROS Obtained: Yes Systems reviewed as appropriate & no additional complaints except as documented Physical Exam General General appearance: alert and in no apparent distress Head Head exam: atraumatic and normocephalic Eye Eye exam: Present PERRL and EOMI ENT ENT exam: Present mucous membranes moist Neck Neck exam: Present normal inspection Chest Chest inspection: Present normal inspection and symmetric chest wall rise Respiratory Respiratory exam: Absent respiratory distress Cardiovascular Cardiovascular exam: Present regular rate and normal rhythm Abdominal Exam Abdominal exam: Present soft; Absent tenderness Extremities Exam Extremities exam: Present normal inspection and other (No asymmetry of the lower extremities, palpable dorsal pedal pulse on the left, capillary refill less than 2 seconds. Straight leg raise positive on the left, straight leg raise on the right produces contralateral pain on the left.) Back Exam Back exam: Present other (No rashes, lumbar tenderness present) Neurological Exam Neurological exam: Present alert Psychiatric Psychiatric exam: Present normal affect Skin Skin exam: Present warm and dry Medical Decision Making Martin Inquiry Pt receiving controlled substance: No Vital Signs: 12/28/23 16:16 12/28/23 16:31 12/28/23 17:01 Temperature 97.8 F Temperature Source Oral Pulse Rate 94 H 85 Pulse Rate [Right] 107 H Respiratory Rate 18 16 Blood Pressure 164/85 H 154/81 H Blood Pressure [Right Arm] 173/104 H Blood Pressure Mean 105 Blood Pressure Mean [Right Arm] 127 02 Sat by Pulse Oximetry 93 L 95 95 Oxygen Delivery Method Room Air Room Air 12/28/23 17:31 12/28/23 18:01 Temperature Temperature Source Pulse Rate 87 92 H Pulse Rate [Right] Respiratory Rate 16 16 Blood Pressure 158/88 H 198/108 H Blood Pressure [Right Arm] Blood Pressure Mean 106 132 Blood Pressure Mean [Right Arm] 02 Sat by Pulse Oximetry 96 93 L Oxygen Delivery Method Orders (Tests/Meds): ED MEDICATIONS Discontinued Medications Generic Name Dose Route Start Last Admin Trade Name Leslie PRN Reason Stop Dose Admin Acetaminophen 1,000 mg 12/28/23 17:04 12/28/23 17:28 Acetaminophen 500mg Tab PO 12/28/23 17:05 1,000 mg ONCE ONE Administration Ketorolac Tromethamine 30 mg 12/28/23 17:04 12/28/23 17:28 Ketorolac 30mg/Ml Vial IM 12/28/23 17:05 30 mg ONCE ONE Administration Lidocaine 1 each 12/28/23 17:04 12/28/23 17:28 Lidocaine 5% Transdermal Patch TP 12/28/23 17:05 1 each ONCE ONE Administration Midazolam HCl 4 mg 12/28/23 17:12/28/23 17:28 Midazolam 5mg/Ml 1ml Vial IM 12/28/23 17:05 4 mg ONCE ONE Administration Ondansetron HCl 4 mg 12/28/23 17:04 12/28/23 17:28 Ondansetron 4mg Odt SL 12/28/23 17:05 4 mg ONCE ONE Administration Medical Decision Narrative: In summary patient is a 63-year-old female past medical history described above who presents emergency department for repeat evaluation of back pain and leg pain. Patient is hemodynamically stable nontoxic-appearing upon arrival, afebrile. Previous workup reviewed by me and is appropriate, no interval trauma or other symptoms that would warrant further workup. Physical exam consistent with sciatica. Given this empiric treatment will be conducted with Toradol, muscle relaxation with Versed. Upon repeat evaluation patient had persistent pain, it is in a perfect distribution along her lumbosacral spine consistent with sciatica, given straight leg raise and cross straight leg raise positive I suspect this is the etiology of her pain which will likely be difficult to manage. However given that it is acute this is hopeful that it will resolve with physical therapy and pain control in the interim to get her through this for which this was talked about at bedside at length. Patient will follow-up with Dr. Liu for possible Dr. 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 Patient was given a single dose of oxycodone given severity of pain and will be discharged with a course of gabapentin to assess whether or not it will work over the next week. Patient was given return precautions. Critical Care Critical Care Time Critical Care Time: No
[2023-12-28 17:01] VITALS: BP 154/81; PULSE 85; RESP 16; O2SAT 95
[2023-12-28] MEDS: MIDAZOLAM 5MG/ML 1ML VIAL 4 MG IM (17:28)
[2023-12-28] MEDS: ONDANSETRON 4MG ODT 4 MG SL (17:28)
[2023-12-28] MEDS: KETOROLAC 30MG/ML VIAL 30 MG IM (17:28)
[2023-12-28] MEDS: LIDOCAINE 5% TRANSDERMAL PATCH 1 EACH TP (17:28)
[2023-12-28] MEDS: ACETAMINOPHEN 500MG TAB 1000 MG PO (17:28)
[2023-12-28 17:31] VITALS: BP 158/88; PULSE 87; RESP 16; O2SAT 96
[2023-12-28 18:01] VITALS: BP 198/108; PULSE 92; RESP 16; O2SAT 93
[2023-12-28] MEDS: OXYCODONE 5MG IMMEDIATE RELEASE TABLET 5 MG PO (18:28)
[2023-12-28 18:41] VITALS: BP 164/98; PULSE 87; RESP 18; TEMP 37.1; O2SAT 96
== END 2023-12-28 18:42 | disposition home or self-care (01) ==
PROVIDERS: Emergency Provider Emergency Medicine; PCP Internal Medicine Adolescent Medicine
DX: M54.32 Sciatica, left side (principal); M51.27 Other intervertebral disc displacement, lumbosacral region
CPT/HCPCS: 96372; 99283

== ENCOUNTER 2024-01-19 14:36 | Outpatient (CLI) | payer MEDICARE, SELFPAY ==
--- NOTE | 2024-01-19 14:58 | MR_ITS ---
FINAL REPORT CLINICAL HISTORY: ACUTE LEFT SIDED LOW BACK PAIN WITH LEFT SIDED SCIATICA COMPARISON: None FINDINGS: Multiplanar MR imaging of the lumbar spine was performed without contrast. On the sagittal T2-weighted images, disc degeneration is seen at multiple levels. The vertebral alignment is normal. There is no evidence of fracture. No bony mass is identified. The conus has an unremarkable appearance. L1-2: An annular bulge is present. There is no significant canal stenosis or neural foraminal narrowing. L2-3: An annular bulge is present. There is no significant canal stenosis or neural foraminal narrowing. L3-4: An annular bulge is present with facet arthropathy. There is a left posterolateral disc protrusion which produces moderate left neural foraminal narrowing and impinges on the left L3 nerve root. L4-5: An annular bulge is present with facet arthropathy. There is a small central disc protrusion present. L5-S1: An annular bulge is present. There is mild bilateral neural foraminal narrowing. IMPRESSION: Multilevel degenerative disc disease and spondylosis as described, most severe at the L3-4 level as described.. Reviewed, Interpreted and Dictated by Gabriele Houston III, MD Transcribed by Claudia Arroyo Authenticated and [facility]
[2024-01-19 15:24] LABS: Blood Urea Nitrogen 14 mg/dl (7-17); Estimated Glomerular Filt Rate 100 ml/min (>60); GFR (African American) 121 ML/MIN (>60)
== END 2024-01-19 23:59 | disposition home or self-care (01) ==
LOC: RAD 14:37
PROVIDERS: PCP Internal Medicine Adolescent Medicine; Visit Provider Internal Medicine Adolescent Medicine
DX: M54.42 Lumbago with sciatica, left side (principal)
CPT/HCPCS: 36415; 72148; 82565; 84520

== ENCOUNTER 2024-01-21 11:00 | Outpatient (RCR) | payer MEDICARE, SELFPAY ==
--- NOTE | 2024-01-07 11:36 | HMH.PTOPEV ---
PT Outpatient Evaluation Rehab PT Outpatient Evaluation Start: 01/07/24 11:09 Freq: Status: Active Protocol: Document 01/07/24 11:09 KIM (Rec: 01/07/24 11:36 PHORNE [id number]) E-signed By Ryan Meade, PT Outpatient Therapy Subjective History Subjective History This is the initial evaluation for Karyn Sanz, 63 yowf, who presnts to [facility] with a 2-week history of Left-sided LBP that radiates down her left leg. The patient reports she was pressure washing her house when she pulled her Low back and immediately began to feel pain that went into her lower leg. She reports that she went to the ER and they did a CT which showed disc bulging at L5-S1. The patient reports that she has been taking tramadol and gabapentin since then which helps a little bit. She also has been doing a few exercises, which also seems to help after she does them. The patient expresses that she is possibly interested in dry needling. The patient's PMH is significant for RA, OA, T2DM and HTN. New diagnosis of cancer in past 12 No months? Chief Complaint Pain Symptom Type Sharp,Burning Symptoms Relieved By Prescription Meds Symptoms Aggravated By Prone,Sitting,Standing, Physical Activity,Walking, Lifting Prior Functional Limitations None Current Functional Limitations Lifting,Housework,Sleeping, Standing,Sitting,Squatting, Walking Symptom Description Constant but Variable Level of pain today (0-10) 3 Pain scale - at its best (0-10) 3 Pain scale - at its worst (0-10) 10 Lumbopelvic Eval Posture Thoracic Spine Posture Standing Position Neutral Lumbar Spine Posture Standing Position Neutral Assistive device Assistive Devices None / NA Gait Observation General Gait Pattern Observation Antalgic Gait,Wide Based Gait, Shuffling Step Palapation tenderness left lumbar spinal tenderness Yes: L4-S1 3/4 paraspinal tenderness Yes: L4-S1 3/4 buttock tenderness Yes: L side 3/4 Lumbar/Sacral Palpation Findings Tenderness,Spasm,Muscle Guarding Accessory Movement L-spine Vertebrae Accessory Movements Central P/A [place],Left P/A that Elicit Symptoms [place] L3 bilateral L4 bilateral L5 bilateral Range of Motion Lumbar Spine Active Flexion Range of 40 with pain evoked Motion (degrees) Lumbar Spine Active Extension Range of 20 Motion (degrees) Left Lumbar Spine Lateral Flexion Active 25 Range of Motion (degrees) Right Lumbar Spine Lateral Flexion 25 Active Range of Motion (degrees) Lumbar Spine ROM Limitations Pain Manual Muscle Test Right Knee Extension Strength Grade 5 Normal Knee Flexion Strength Grade 5 Normal Hip Flexion Strength Grade 4 Good Hip Abduction Strength Grade 4 Good Hip Adduction Strength Grade 4 Good Hip External Rotation Strength Grade 4 Good Hip Internal Rotation Strength Grade 4 Good Extensor Hallucis Longus Strength Grade 5 Normal Ankle Dorsiflexion Strength Grade 5 Normal Gastronemius/Soleus Strength Grade 5 Normal Left Knee Extension Strength Grade 4- Good- Knee Flexion Strength Grade 4- Good- Hip Flexion Strength Grade 3+ Fair+ Hip Abduction Strength Grade 4- Good- Hip Adduction Strength Grade 4- Good- Hip External Rotation Strength Grade 4- Good- Hip Internal Rotation Strength Grade 3+ Fair+ Extensor Hallucis Longus Strength Grade 5 Normal Ankle Dorsiflexion Strength Grade 5 Normal Gastronemius/Soleus Strength Grade 5 Normal DTR Rt Patellar 1+ Lt Patellar 1+ Rt Gastroc/Soleus 1+ Lt Gastroc/Soleus 1+ Altered Sensation Bilateral Comment No hyposensation noted. Special Tests Lumbar Spine Screen Positive Hip Hayden (LOC) Test Negative Right,Positive Left Sciatic Nerve Tension Test Negative Right,Positive Left Oswestry Index Section 1 Pain Intensity The pain is severe and does not vary much Section 2 Personal Care (Washing,Dresing) increase the pain, but I manage not to change my way of doing it Section 3 Lifting lifting heavy weights off the floor, but I can manage light to medium Section 4 Walking I cannot walk more than 1/2 mile without increasing pain Section 5 Sitting I can sit in my favorite chair for as long as I like Section 6 Standing I cannot stand more than 10 minutes without increasing pain Section 7 Sleeping Because of pain, my normal nights sleep is less than 2 hours sleep Section 8 Social Life Pain has restricted my social life and I do not go out often Section 9 Traveling Pain restricts me to short necessary journeys under 30 minutes Section 10 Changing Degreee of Pain My pain is neither getting better or worse Score and Risk Level Oswestry Sc 33 Oswestry Risk Level Severe Disability Outpatient Therapy Assessment Impairments Problems/Impairmments Palpation Tenderness,Impaired Range of Motion,Impaired Strength,Impaired Gait Pattern ,Impaired Standing,Impaired Household Care,Subjective C/O Pain Prognosis Rehab Potential Good Clinical Impression Consistent with Diagnosis Yes Short Term Goals Number of Weeks 4 Decreased Palpation Tenderness Yes: 1-2/4 to L4-S1 Increase Range of Motion Yes: Lumbar flexion: 50 with no pain Increase Strength Yes: 4/5 to B LE Improve Gait Pattern without Assistive Yes: no deviations Device Increase Ability to Stand Yes: 30 minutes Improve Oswestry Score Yes: Moderate Disability Decrease Subjective C/O Pain Yes: 5/10 at worst Patient to be Ind w/ HEP Yes Intermediate Goals Number of Weeks 8 weeks Decreased Palpation Tenderness Yes: 0/4 to L4-S1 Increase Strength Yes: 4+/5 to B LE Increase Ability to Stand Yes: 60 minutes Improve Oswestry Score Yes: Minimal Disability Decrease Subjective C/O Pain Yes: 2/10 at worst Patient to be Ind w/ Advanced HEP Yes Outpatient Therapy Plan of Care Treatment Plan May Include Therapeutic Exercise Including Home Yes Exercise Program Manual Therapy Techniques Yes Neuromuscular Re-education Yes Therapeutic Activities to Return to Yes Previous Functional/Work Level Gait Training Yes ADL/Self Care Education Yes Mechanical Traction Yes Dry Needling Yes Thermal Modalities Yes Electrical Stimulation Yes Ultrasound/Phonophoresis Yes Iontophoresis Yes Orthotics/Bracing/Splinting Yes Vasopneumatic Compression Pump Yes Massage Yes Manual Lymphatic Drainage Yes Eval/Re-Eval Yes Aquatic Therapy Yes Frequency Times per week 2/week Duration Number of Weeks 8 weeks Addendums This patient is a candidate for social No or vocational rehab? Patient/Guardian verbally acknowledges Yes understanding of treatment program and consents to further treatment? Patient/Guardian verbally acknowledges Yes understanding of diagnosis, prognosis and goals for treatment? Eval Complexity PT Charges 01389 - High Complexity Shoulder/Elbow Eval Shoulder Objective Measurements Elbow Objective Measurements PHYSICIAN CERTIFICATION: I certify the specified therapy services for Karyn Sanz are required, authorized, and reviewed every 30 days.
== END 2024-01-21 12:00 | disposition home or self-care (01) ==
LOC: PT 11:00
PROVIDERS: Visit Provider Internal Medicine Adolescent Medicine
DX: M54.42 Lumbago with sciatica, left side (principal)
CPT/HCPCS: 97010; 97014; 97110; 97140; 97163; 97530; G0283

== ENCOUNTER 2024-04-01 08:12 | Outpatient (CLI) | payer MEDICARE, SELFPAY ==
[2024-04-01 08:30] VITALS: BMI 36.6
--- NOTE | 2024-04-01 15:27 | PC.NURSE ---
0845-NO INFUSION/MEDS ADMINISTERED TODAY. PT RESCHEDULED FOR 04/08/24.
== END 2024-04-01 09:15 | disposition home or self-care (01) ==
LOC: INF 08:13
PROVIDERS: PCP Internal Medicine Adolescent Medicine; Visit Provider Internal Medicine Rheumatology
DX: M06.9 Rheumatoid arthritis, unspecified (principal)

== ENCOUNTER 2024-04-08 08:09 | Outpatient (CLI) | payer MEDICARE, SELFPAY ==
[2024-04-08] VITALS (15 sets, daily range): BP systolic 118–162; BP diastolic 54–99; PULSE 84–91; RESP 16–18; O2SAT 94–96; BMI 36.6
[2024-04-08 08:46] LABS: Basophils # 0.1 K/mm3 (0-0.2); Basophils % 0.7 % (0.1-2.0); Eosinophils # 0.7 K/mm3 (0.0-0.4); Hematocrit 44.6 % (37.0-47.0); Hemoglobin 14.3 g/dL (12.2-16.2); Lymphocytes # 3.3 K/mm3 (0.7-4.5); Lymphocytes % 20.1 % (10-50); Mean Corpuscular HGB Conc 32.1 g/dL (31.8-35.4); Mean Corpuscular Hemoglobin 28.5 pg (27.0-31.2); Mean Corpuscular Volume 88.8 fl (81-99); Mean Platelet Volume 9.2 fl (7.4-10.4); Monocytes % 6.3 % (1.7-9.3); Neutrophils # 11.2 K/mm3 (1.8-7.8); Platelet Count 405 K/mm3 (142-424); Red Blood Count 5.02 M/mm3 (4.20-5.40); Red Cell Distribution Width 14.6 % (11.5-17.5); White Blood Count 16.2 K/mm3 (4.8-10.8)
[2024-04-08 09:04] LABS: MANUAL DIFFERENTIAL MANUAL DIFFERENTIAL (MANUAL DIFF)
[2024-04-08] MEDS: SODIUM CHLORIDE 0.9% 50ML BAG 50 ML IV (09:09)
[2024-04-08] MEDS: diphenhydrAMINE 50MG CAPSULE 50 MG PO (09:10)
[2024-04-08] MEDS: ACETAMINOPHEN 325MG TAB 650 MG PO (09:10)
[2024-04-08] MEDS: METHYLPREDNISOLONE SOD SUCC 40MG VIAL 40 MG IV (09:11)
[2024-04-08 09:33] LABS: Eosinophils % 1 % (0-3); Lymphocytes % 18 % (10-50); Monocytes % 4 % (2-9); Neutrophils % 76 % (42-76); Platelet Estimate Normal; RBC Morphology Normal; Total Cells Counted 100
[2024-04-08] MEDS: RITUXIMAB 1,000 MG in 0.9 % SODIUM CHLORIDE 400 ML 50 MG IV (09:37)
== END 2024-04-08 13:45 | disposition home or self-care (01) ==
LOC: INF 08:10
PROVIDERS: PCP Internal Medicine Adolescent Medicine; Visit Provider Internal Medicine Rheumatology
DX: M05.19 Rheumatoid lung disease with rheumatoid arthritis of multiple sites (principal)
CPT/HCPCS: 85007; 85025; 85027; 96413; 96415; J2919; J9312

== ENCOUNTER 2024-04-15 08:14 | Outpatient (CLI) | payer MEDICARE, SELFPAY ==
[2024-04-15 08:23] LABS: Microscopic, Urine URINE MICROSCOPIC (MICROSCOPIC)
[2024-04-15 08:46] LABS: Basophils # 0.1 K/mm3 (0-0.2); Basophils % 0.8 % (0.1-2.0); Eosinophils # 0.6 K/mm3 (0.0-0.4); Eosinophils % 3.8 % (0.1-12.0); Hematocrit 46.4 % (37.0-47.0); Hemoglobin 14.6 g/dL (12.2-16.2); Lymphocytes # 3.6 K/mm3 (0.7-4.5); Lymphocytes % 21.9 % (10-50); Mean Corpuscular HGB Conc 31.4 g/dL (31.8-35.4); Mean Corpuscular Hemoglobin 27.6 pg (27.0-31.2); Mean Corpuscular Volume 87.9 fl (81-99); Mean Platelet Volume 8.8 fl (7.4-10.4); Monocytes # 1.1 K/mm3 (0.1-1.0); Monocytes % 6.6 % (1.7-9.3); Neutrophils % 66.9 % (37.0-80.0); Platelet Count 362 K/mm3 (142-424); Red Blood Count 5.28 M/mm3 (4.20-5.40); Red Cell Distribution Width 14.6 % (11.5-17.5); White Blood Count 16.5 K/mm3 (4.8-10.8)
[2024-04-15 09:13] LABS: MANUAL DIFFERENTIAL MANUAL DIFFERENTIAL (MANUAL DIFF)
[2024-04-15 09:47] LABS: Eosinophils % 1 % (0-3); Lymphocytes % 25 % (10-50); Monocytes % 8 % (2-9); Neutrophils % 66 % (42-76); Total Cells Counted 100
[2024-04-15 09:48] LABS: Platelet Estimate Normal; RBC Morphology Normal
[2024-04-15 09:50] LABS: Erythrocyte Sedimentation Rate 5 mm/hr (0-30)
[2024-04-15 10:40] LABS: Chloride 103 mmol/L (98-107)
[2024-04-15 10:41] LABS: Potassium 4.5 mmoL/L (3.5-5.1); Sodium 135 mmol/L (136-145)
[2024-04-15 10:43] LABS: Blood Urea Nitrogen 18 mg/dl (7-17); Estimated Glomerular Filt Rate 100 ml/min (>60); GFR (African American) 121 ML/MIN (>60)
[2024-04-15 10:44] LABS: Alanine Aminotransferase 26 U/L (12-78); Albumin/Globulin Ratio 1.4 (1.1-1.8); Alkaline Phosphatase 95 U/L (38-126); Anion Gap 11.5 mEq/L (5-15); Aspartate Amino Transferase 28 U/L (14-36); Bilirubin,Total 0.8 mg/dl (0.2-1.3); Calcium 9.5 mg/dl (8.4-10.2); Carbon Dioxide 25 mmol/L (22.0-30.0); Globulin 2.8 g/dL (1.3-3.2); Glucose 190 mg/dl (74-100); Total Protein,Serum 6.8 g/dl (6.3-8.2)
[2024-04-15 10:50] LABS: C-Reactive Protein 17.1 mg/L (0-4)
[2024-04-15 11:38] LABS: Appearance,Urine CLEAR (Clear); Bilirubin,Urine Negative (Negative); Blood, Urine Negative (Negative); Color,Urine YELLOW (Yellow); Glucose,Urine (UA) 3+ (Negative); Ketones,Urine Negative (Negative); Leukocyte Esterase,Urine Negative (Negative); Nitrate,Urine Negative (Negative); Protein,Urine Negative (Negative); Specific Gravity, Urine 1.015 (1.005-1.030); Urobilinogen,Urine 0.2 EU/dl (0.2)
[2024-04-15 12:41] LABS: Bacteria,Urine Trace /lpf; Squamous Epithelial Cell,Urine Occasional #/hpf (0-5)
== END 2024-04-15 23:59 | disposition home or self-care (01) ==
LOC: LAB 08:17
PROVIDERS: Nurse Practitioner Family; PCP Internal Medicine Adolescent Medicine; Visit Provider Internal Medicine Rheumatology
DX: Z79.899 Other long term (current) drug therapy (principal); R10.9 Unspecified abdominal pain
CPT/HCPCS: 36415; 80053; 81001; 85007; 85025; 85027; 85651; 86140; 87086

== ENCOUNTER 2024-04-22 07:32 | Outpatient (CLI) | payer MEDICARE, SELFPAY ==
[2024-04-22] VITALS (15 sets, daily range): BP systolic 93–123; BP diastolic 51–63; PULSE 82–90; RESP 16–20; TEMP 36.5; O2SAT 93; BMI 36.6
[2024-04-22 09:14] LABS: Basophils # 0.1 K/mm3 (0-0.2); Basophils % 0.8 % (0.1-2.0); Eosinophils # 0.5 K/mm3 (0.0-0.4); Eosinophils % 2.8 % (0.1-12.0); Hemoglobin 13.8 g/dL (12.2-16.2); Lymphocytes # 3.2 K/mm3 (0.7-4.5); Lymphocytes % 17.5 % (10-50); Mean Corpuscular HGB Conc 30.1 g/dL (31.8-35.4); Mean Corpuscular Hemoglobin 27.2 pg (27.0-31.2); Mean Corpuscular Volume 90.6 fl (81-99); Mean Platelet Volume 8.9 fl (7.4-10.4); Monocytes % 5.5 % (1.7-9.3); Neutrophils # 13.4 K/mm3 (1.8-7.8); Neutrophils % 73.5 % (37.0-80.0); Platelet Count 361 K/mm3 (142-424); Red Blood Count 5.08 M/mm3 (4.20-5.40); Red Cell Distribution Width 14.5 % (11.5-17.5); White Blood Count 18.2 K/mm3 (4.8-10.8)
[2024-04-22 09:15] LABS: MANUAL DIFFERENTIAL MANUAL DIFFERENTIAL (MANUAL DIFF)
[2024-04-22] MEDS: ACETAMINOPHEN 325MG TAB 650 MG (09:27)
[2024-04-22] MEDS: METHYLPREDNISOLONE SOD SUCC 40MG VIAL 40 MG (09:27)
[2024-04-22] MEDS: diphenhydrAMINE 50MG CAPSULE 50 MG PO (09:28)
[2024-04-22] MEDS: 0.9 % SODIUM CHLORIDE 50 ML 100 ML IV (09:28)
[2024-04-22 09:43] LABS: Lymphocytes % 18 % (10-50); Monocytes % 2 % (2-9); Neutrophils % 80 % (42-76); Platelet Estimate Normal; RBC Morphology Normal; Total Cells Counted 100
[2024-04-22] MEDS: RITUXIMAB 1,000 MG in 0.9 % SODIUM CHLORIDE 500 ML 50 MG IV (09:52)
== END 2024-04-22 13:45 | disposition home or self-care (01) ==
LOC: INF 07:33
PROVIDERS: PCP Internal Medicine Adolescent Medicine; Visit Provider Internal Medicine Rheumatology
DX: J84.9 Interstitial pulmonary disease, unspecified (principal)
CPT/HCPCS: 36415; 85007; 85025; 85027; 96413; 96415; J2919; J9312

== ENCOUNTER 2024-07-21 15:24 | Outpatient (CLI) | payer MEDICARE, SELFPAY ==
[2024-07-21 15:53] LABS: Basophils # 0.1 K/mm3 (0-0.2); Basophils % 0.7 % (0.1-2.0); Eosinophils # 0.5 K/mm3 (0.0-0.4); Eosinophils % 3.2 % (0.1-12.0); Hematocrit 44.5 % (37.0-47.0); Hemoglobin 14.2 g/dL (12.2-16.2); Lymphocytes # 3.5 K/mm3 (0.7-4.5); Lymphocytes % 21.6 % (10-50); Mean Corpuscular Hemoglobin 27.1 pg (27.0-31.2); Mean Corpuscular Volume 84.8 fl (81-99); Mean Platelet Volume 8.2 fl (7.4-10.4); Monocytes # 0.9 K/mm3 (0.1-1.0); Monocytes % 5.7 % (1.7-9.3); Neutrophils # 11.1 K/mm3 (1.8-7.8); Neutrophils % 68.8 % (37.0-80.0); Platelet Count 369 K/mm3 (142-424); Red Blood Count 5.25 M/mm3 (4.20-5.40); Red Cell Distribution Width 14.2 % (11.5-17.5); White Blood Count 16.1 K/mm3 (4.8-10.8)
[2024-07-21 15:55] LABS: MANUAL DIFFERENTIAL MANUAL DIFFERENTIAL (MANUAL DIFF)
[2024-07-21 16:09] LABS: Alanine Aminotransferase 21 U/L (12-78); Albumin/Globulin Ratio 1.3 (1.1-1.8); Alkaline Phosphatase 95 U/L (38-126); Anion Gap 11.9 mEq/L (5-15); Aspartate Amino Transferase 24 U/L (14-36); Bilirubin,Total 0.7 mg/dl (0.2-1.3); Blood Urea Nitrogen 12 mg/dl (7-17); Calcium 9.3 mg/dl (8.4-10.2); Carbon Dioxide 29 mmol/L (22.0-30.0); Chloride 102 mmol/L (98-107); Estimated Glomerular Filt Rate 63 ml/min (>60); GFR (African American) 76 ML/MIN (>60); Glucose 144 mg/dl (74-100); Potassium 3.9 mmoL/L (3.5-5.1); Sodium 139 mmol/L (136-145)
[2024-07-21 17:52] LABS: Eosinophils % 2 % (0-3); Lymphocytes % 31 % (10-50); Monocytes % 7 % (2-9); Neutrophils % 60 % (42-76); Total Cells Counted 100
[2024-07-21 17:53] LABS: Hypochromasia 2+; Platelet Estimate Normal
[2024-07-21 21:59] LABS: Hemoglobin A1C 8.3 % (4.0-6.0)
== END 2024-07-21 23:59 | disposition home or self-care (01) ==
LOC: LAB 15:26
PROVIDERS: PCP Internal Medicine Adolescent Medicine; Visit Provider Internal Medicine Adolescent Medicine
DX: E11.65 Type 2 diabetes mellitus with hyperglycemia (principal); I25.10 Atherosclerotic heart disease of native coronary artery without angina pectoris; J84.9 Interstitial pulmonary disease, unspecified
CPT/HCPCS: 36415; 80053; 83036; 85007; 85025; 85027

== ENCOUNTER 2024-08-25 08:54 | Outpatient (CLI) | payer MEDICARE, SELFPAY ==
[2024-08-25] VITALS (19 sets, daily range): BP systolic 122–169; BP diastolic 54–102; PULSE 85–100; RESP 17–18; O2SAT 99; BMI 36.6
[2024-08-25] MEDS: SODIUM CHLORIDE 0.9% 50ML BAG 50 ML IV (09:26)
[2024-08-25] MEDS: ACETAMINOPHEN 325MG TAB 650 MG PO (09:27)
[2024-08-25] MEDS: diphenhydrAMINE 50MG CAPSULE 50 MG PO (09:27)
[2024-08-25] MEDS: METHYLPREDNISOLONE SOD SUCC 40MG VIAL 40 MG IV (09:28)
[2024-08-25 09:39] LABS: Hematocrit 35.4 % (37.0-47.0); Hemoglobin 11.7 g/dL (12.2-16.2); Mean Corpuscular HGB Conc 33.1 g/dL (31.8-35.4); Mean Corpuscular Volume 84.7 fl (81-99); Mean Platelet Volume 10.8 fl (7.4-10.4); Neutrophils % 73.2 % (37.0-80.0); Platelet Count 452 K/mm3 (142-424); Red Blood Count 4.18 M/mm3 (4.20-5.40); Red Cell Distribution Width 13.4 % (11.5-17.5); White Blood Count 24.9 K/mm3 (4.8-10.8)
[2024-08-25 09:40] LABS: Basophils # 0.1 K/mm3 (0-0.2); Basophils % 0.4 % (0.1-2.0); Eosinophils # 0.7 K/mm3 (0.0-0.4); Eosinophils % 2.6 % (0.1-12.0); Lymphocytes # 3.2 K/mm3 (0.7-4.5); Lymphocytes % 12.7 % (10-50); Monocytes # 2.6 K/mm3 (0.1-1.0); Monocytes % 10.5 % (1.7-9.3); Neutrophils # 18.2 K/mm3 (1.8-7.8)
[2024-08-25 09:42] LABS: MANUAL DIFFERENTIAL MANUAL DIFFERENTIAL (MANUAL DIFF)
[2024-08-25] MEDS: RITUXIMAB 1,000 MG in 0.9 % SODIUM CHLORIDE 500 ML 25 MG IV (10:02)
[2024-08-25 11:30] LABS: Eosinophils % 1 % (0-3); Lymphocytes % 23 % (10-50); Monocytes % 5 % (2-9); Neutrophils % 71 % (42-76); RBC Morphology Normal; Total Cells Counted 100
[2024-08-25 11:31] LABS: Platelet Estimate Slight Increase
== END 2024-08-25 15:05 | disposition home or self-care (01) ==
LOC: INF 08:56
PROVIDERS: PCP Internal Medicine Adolescent Medicine; Visit Provider Internal Medicine Rheumatology
DX: J84.9 Interstitial pulmonary disease, unspecified (principal); M05.79 Rheumatoid arthritis with rheumatoid factor of multiple sites without organ or systems involvement
CPT/HCPCS: 85007; 85025; 96413; 96415; J2919; J9312

== ENCOUNTER 2024-08-27 15:20 | Outpatient (CLI) | payer MEDICARE, SELFPAY ==
--- NOTE | 2024-08-27 15:24 | XR_ITS ---
FINAL REPORT CLINICAL HISTORY: ACUTE BRONCHITIS COMPARISON: 11/16/2021 FINDINGS: 2 views of the chest were obtained. There are coarse interstitial changes diffusely, similar from prior exam, suspicious for fibrosis. No acute superimposed infiltrate is evident. There is no evidence of effusion or other pleural disease. The mediastinum has a normal appearance. The cardiac silhouette is unremarkable. IMPRESSION: Extensive chronic lung changes without acute process. Reviewed, Interpreted and Dictated by Angi Morejon MD Transcribed by Karyn Valdez Authenticated and . [facility]
== END 2024-08-27 23:59 | disposition home or self-care (01) ==
LOC: RAD 15:22
PROVIDERS: PCP Internal Medicine Adolescent Medicine; Visit Provider Physician Assistant
DX: J20.9 Acute bronchitis, unspecified (principal)
CPT/HCPCS: 71046

== ENCOUNTER 2024-09-02 13:37 | Outpatient (CLI) | payer MEDICARE, SELFPAY ==
[2024-09-02 14:04] LABS: Hematocrit 35.2 % (37.0-47.0); Hemoglobin 11.3 g/dL (12.2-16.2); Mean Corpuscular Volume 85.2 fl (81-99); Red Blood Count 4.13 M/mm3 (4.20-5.40); White Blood Count 21.1 K/mm3 (4.8-10.8)
[2024-09-02 14:05] LABS: Basophils # 0.1 K/mm3 (0-0.2); Basophils % 0.4 % (0.1-2.0); Eosinophils # 0.8 K/mm3 (0.0-0.4); Eosinophils % 3.9 % (0.1-12.0); Lymphocytes # 3.5 K/mm3 (0.7-4.5); Lymphocytes % 16.5 % (10-50); Mean Corpuscular HGB Conc 32.1 g/dL (31.8-35.4); Mean Corpuscular Hemoglobin 27.4 pg (27.0-31.2); Mean Platelet Volume 10.3 fl (7.4-10.4); Monocytes # 1.7 K/mm3 (0.1-1.0); Monocytes % 8.1 % (1.7-9.3); Neutrophils # 14.7 K/mm3 (1.8-7.8); Neutrophils % 69.8 % (37.0-80.0); Platelet Count 528 K/mm3 (142-424); Red Cell Distribution Width 13.2 % (11.5-17.5)
[2024-09-02 14:06] LABS: MANUAL DIFFERENTIAL MANUAL DIFFERENTIAL (MANUAL DIFF)
[2024-09-02 14:31] LABS: Eosinophils % 3 % (0-3); Lymphocytes % 17 % (10-50); Monocytes % 2 % (2-9); Neutrophils % 77 % (42-76); Platelet Estimate Moderate Increase; RBC Morphology Normal; Total Cells Counted 100
== END 2024-09-02 23:59 | disposition home or self-care (01) ==
LOC: LAB 13:39
PROVIDERS: PCP Internal Medicine Adolescent Medicine; Visit Provider Physician Assistant
DX: D72.829 Elevated white blood cell count, unspecified (principal)
CPT/HCPCS: 36415; 85007; 85025; 85027

== ENCOUNTER 2024-09-15 09:04 | Outpatient (CLI) | payer MEDICARE, SELFPAY ==
[2024-09-15] VITALS (8 sets, daily range): BP systolic 104–136; BP diastolic 62–83; PULSE 78–93; RESP 18; TEMP 36.7; O2SAT 98; BMI 34.9
[2024-09-15 09:49] LABS: Basophils # 0.1 K/mm3 (0-0.2); Basophils % 0.9 % (0.1-2.0); Eosinophils # 0.6 K/mm3 (0.0-0.4); Eosinophils % 3.9 % (0.1-12.0); Hematocrit 40.4 % (37.0-47.0); Hemoglobin 12.7 g/dL (12.2-16.2); Lymphocytes # 3.6 K/mm3 (0.7-4.5); Lymphocytes % 24.2 % (10-50); Mean Corpuscular HGB Conc 31.4 g/dL (31.8-35.4); Mean Platelet Volume 10.4 fl (7.4-10.4); Monocytes # 1.5 K/mm3 (0.1-1.0); Neutrophils # 9.1 K/mm3 (1.8-7.8); Neutrophils % 60.5 % (37.0-80.0); Platelet Count 535 K/mm3 (142-424); Red Cell Distribution Width 13.1 % (11.5-17.5); White Blood Count 15.1 K/mm3 (4.8-10.8)
[2024-09-15] MEDS: diphenhydrAMINE 50MG CAPSULE 50 MG PO (09:55)
[2024-09-15] MEDS: ACETAMINOPHEN 325MG TAB 650 MG PO (09:55)
[2024-09-15] MEDS: METHYLPREDNISOLONE SOD SUCC 40MG VIAL 40 MG IV (09:55)
[2024-09-15 10:01] LABS: MANUAL DIFFERENTIAL MANUAL DIFFERENTIAL (MANUAL DIFF)
[2024-09-15] MEDS: RITUXIMAB 1,000 MG in 0.9 % SODIUM CHLORIDE 400 ML 50 MG IV (10:23)
[2024-09-15 10:51] LABS: Eosinophils % 6 % (0-3); Lymphocytes % 31 % (10-50); Monocytes % 4 % (2-9); Neutrophils % 59 % (42-76); Total Cells Counted 100
[2024-09-15 10:52] LABS: Platelet Estimate Moderate Increase; RBC Morphology Normal
== END 2024-09-15 14:10 | disposition home or self-care (01) ==
PROVIDERS: Internal Medicine Rheumatology; PCP Internal Medicine Adolescent Medicine; Visit Provider Student in an Organized Health Care Education/Training Program
DX: M05.79 Rheumatoid arthritis with rheumatoid factor of multiple sites without organ or systems involvement (principal); J98.4 Other disorders of lung
CPT/HCPCS: 85007; 85025; 85027; 96413; 96415; J2919; J9312

== ENCOUNTER 2024-11-10 10:05 | Outpatient (CLI) | payer MEDICARE, SELFPAY ==
[2024-11-10 10:26] LABS: Basophils # 0.1 K/mm3 (0-0.2); Basophils % 0.6 % (0.1-2.0); Eosinophils # 0.8 K/mm3 (0.0-0.4); Eosinophils % 4.8 % (0.1-12.0); Hematocrit 40.3 % (37.0-47.0); Hemoglobin 12.7 g/dL (12.2-16.2); Lymphocytes # 3.8 K/mm3 (0.7-4.5); Lymphocytes % 23.3 % (10-50); Mean Corpuscular HGB Conc 31.5 g/dL (31.8-35.4); Mean Corpuscular Hemoglobin 27.3 pg (27.0-31.2); Mean Corpuscular Volume 86.5 fl (81-99); Mean Platelet Volume 10.8 fl (7.4-10.4); Monocytes # 1.4 K/mm3 (0.1-1.0); Monocytes % 8.7 % (1.7-9.3); Neutrophils # 10.2 K/mm3 (1.8-7.8); Neutrophils % 62.1 % (37.0-80.0); Platelet Count 367 K/mm3 (142-424); Red Blood Count 4.66 M/mm3 (4.20-5.40); Red Cell Distribution Width 12.9 % (11.5-17.5); White Blood Count 16.4 K/mm3 (4.8-10.8)
[2024-11-10 10:33] LABS: MANUAL DIFFERENTIAL MANUAL DIFFERENTIAL (MANUAL DIFF)
[2024-11-10 10:59] LABS: Eosinophils % 5 % (0-3); Lymphocytes % 21 % (10-50); Monocytes % 5 % (2-9); Neutrophils % 69 % (42-76); Platelet Estimate Normal; RBC Morphology Normal; Total Cells Counted 100
[2024-11-10 11:31] LABS: Albumin Level 3.7 g/dl (3.5-5.0); Chloride 100 mmol/L (98-107); Potassium 4.6 mmoL/L (3.5-5.1); Sodium 135 mmol/L (136-145)
[2024-11-10 11:34] LABS: Alanine Aminotransferase 21 U/L (12-78); Albumin/Globulin Ratio 1.4 (1.1-1.8); Alkaline Phosphatase 133 U/L (38-126); Anion Gap 11.6 mEq/L (5-15); Aspartate Amino Transferase 20 U/L (14-36); Bilirubin,Total 0.4 mg/dl (0.2-1.3); Blood Urea Nitrogen 22 mg/dl (7-17); Calcium 9.3 mg/dl (8.4-10.2); Carbon Dioxide 28 mmol/L (22.0-30.0); Cholesterol 182 mg/dl (140-200); Estimated Glomerular Filt Rate 100 ml/min (>60); GFR (African American) 121 ML/MIN (>60); Globulin 2.7 g/dL (1.3-3.2); Glucose 287 mg/dl (74-100); Total Protein,Serum 6.4 g/dl (6.3-8.2); Triglycerides 98 mg/dl (30-150); VLDL Cholesterol 20 mg/dL (0-40)
[2024-11-10 11:35] LABS: Chol/HDL Ratio 3.7 (1-3.5); HDL Cholesterol 49 mg/dl (40-60)
[2024-11-10 12:32] LABS: Hemoglobin A1C 10.3 % (4.0-6.0)
[2024-11-10 14:57] LABS: Direct LDL Cholesterol 109.93 mg/dL (100-129)
== END 2024-11-10 23:59 | disposition home or self-care (01) ==
LOC: LAB 10:07
PROVIDERS: PCP Internal Medicine Adolescent Medicine; Visit Provider Internal Medicine Adolescent Medicine
DX: E11.65 Type 2 diabetes mellitus with hyperglycemia (principal); Z79.84 Long term (current) use of oral hypoglycemic drugs; Z79.85 Long-term (current) use of injectable non-insulin antidiabetic drugs; Z79.4 Long term (current) use of insulin; E78.5 Hyperlipidemia, unspecified
CPT/HCPCS: 36415; 80053; 80061; 83036; 85007; 85025; 85027

== ENCOUNTER 2025-01-19 08:29 | Outpatient (CLI) | payer MEDICARE, SELFPAY ==
[2025-01-19] VITALS (15 sets, daily range): BP systolic 112–173; BP diastolic 74–95; PULSE 88–103; RESP 16–18; TEMP 36.7; O2SAT 98; BMI 36.6
[2025-01-19 09:01] LABS: Basophils # 0.1 K/mm3 (0-0.2); Basophils % 0.5 % (0.1-2.0); Eosinophils # 0.8 Kmm3 (0.0-0.4); Eosinophils % 4.9 % (0.1-12.0); Hematocrit 41.6 % (37.0-47.0); Hemoglobin 13.1 g/dL (12.2-16.2); Immature Granulocytes # 0.07 10^3uL; Immature Granulocytes % 0.4 %; Lymphocytes # 3.3 K/mm3 (0.7-4.5); Lymphocytes % 21.3 % (10-50); Mean Corpuscular HGB Conc 31.5 g/dL (31.8-35.4); Mean Corpuscular Hemoglobin 27.7 pg (27.0-31.2); Mean Corpuscular Volume 87.9 fl (81-99); Mean Platelet Volume 10.7 fl (7.4-10.4); Monocytes # 1.2 K/mm3 (0.1-1.0); Monocytes % 7.9 % (1.7-9.3); Neutrophils # 10.2 K/mm3 (1.8-7.8); Nucleated Red Blood Cells # 0 10^3/uL; Nucleated Red Blood Cells % 0 %; Platelet Count 377 K/mm3 (142-424); Red Blood Count 4.73 M/mm3 (4.20-5.40); Red Cell Distribution Width 12.9 % (11.5-17.5); Red Cell Distribution Width-SD 41.2 fL; White Blood Count 15.7 K/mm3 (4.8-10.8)
[2025-01-19] MEDS: SODIUM CHLORIDE 0.9% 50ML BAG 50 ML IV (09:19)
[2025-01-19] MEDS: ACETAMINOPHEN 325MG TAB 650 MG PO (09:20)
[2025-01-19] MEDS: METHYLPREDNISOLONE SOD SUCC 40MG VIAL 40 MG IV (09:20)
[2025-01-19] MEDS: diphenhydrAMINE 50MG CAPSULE 50 MG PO (09:20)
[2025-01-19] MEDS: RITUXIMAB 1,000 MG in 0.9 % SODIUM CHLORIDE 500 ML 50 MG IV (09:50)
[2025-01-20 09:02] LABS: Immunoglobulin G, Qn 929 mg/dL (586-1602)
== END 2025-01-19 13:53 | disposition home or self-care (01) ==
LOC: INF 08:30
PROVIDERS: PCP Internal Medicine Adolescent Medicine; Visit Provider Internal Medicine Rheumatology
DX: J84.9 Interstitial pulmonary disease, unspecified (principal)
CPT/HCPCS: 82784; 85025; 96413; 96415; J2919; J9312

== ENCOUNTER 2025-02-02 08:28 | Outpatient (CLI) | payer MEDICARE, SELFPAY ==
[2025-02-02] VITALS (17 sets, daily range): BP systolic 128–166; BP diastolic 60–88; PULSE 74–89; RESP 16–17; O2SAT 97–98; BMI 35.1
[2025-02-02 08:56] LABS: Basophils # 0.1 K/mm3 (0-0.2); Basophils % 0.5 % (0.1-2.0); Eosinophils # 0.8 Kmm3 (0.0-0.4); Eosinophils % 5.2 % (0.1-12.0); Hematocrit 37.9 % (37.0-47.0); Hemoglobin 12.2 g/dL (12.2-16.2); Immature Granulocytes # 0.07 10^3uL; Immature Granulocytes % 0.5 %; Lymphocytes # 3.5 K/mm3 (0.7-4.5); Lymphocytes % 22.4 % (10-50); Mean Corpuscular HGB Conc 32.2 g/dL (31.8-35.4); Mean Corpuscular Hemoglobin 28.2 pg (27.0-31.2); Mean Corpuscular Volume 87.5 fl (81-99); Mean Platelet Volume 10.6 fl (7.4-10.4); Monocytes # 1.5 K/mm3 (0.1-1.0); Monocytes % 9.4 % (1.7-9.3); Neutrophils # 9.6 K/mm3 (1.8-7.8); Nucleated Red Blood Cells # 0 10^3/uL; Nucleated Red Blood Cells % 0 %; Platelet Count 375 K/mm3 (142-424); Red Blood Count 4.33 M/mm3 (4.20-5.40); Red Cell Distribution Width-SD 41.3 fL; White Blood Count 15.5 K/mm3 (4.8-10.8)
[2025-02-02] MEDS: diphenhydrAMINE 50MG CAPSULE 50 MG PO (09:21)
[2025-02-02] MEDS: ACETAMINOPHEN 325MG TAB 650 MG PO (09:21)
[2025-02-02] MEDS: SODIUM CHLORIDE 0.9% 50ML BAG 50 ML IV (09:21)
[2025-02-02] MEDS: METHYLPREDNISOLONE SOD SUCC 40MG VIAL 40 MG IV (09:22)
[2025-02-02] MEDS: RITUXIMAB 1,000 MG in 0.9 % SODIUM CHLORIDE 500 ML 50 MG IV (09:50)
== END 2025-02-02 14:35 | disposition home or self-care (01) ==
LOC: INF 08:29
PROVIDERS: PCP Internal Medicine Adolescent Medicine; Visit Provider Student in an Organized Health Care Education/Training Program
DX: J84.9 Interstitial pulmonary disease, unspecified (principal)
CPT/HCPCS: 85025; 96413; 96415; J2919; J9312

== ENCOUNTER 2025-03-30 09:46 | Outpatient (CLI) | payer MEDICARE, SELFPAY ==
--- OUTSIDE RECORDS SUMMARY | 2025-03-18 09:45 | XMS_ITS | Encounter Summary ---
Author Organization Healthcare Address [address] [place] [address] Care Team Providers Care Oracle Manager Name Role Phone Eben Liu MD Primary Care Provider Reason for Visit * Reason Comments Follow-up Rheumatoid Arthritis Encounter Details Date Type Department Care Team (Late st Contact Info) Description 03/18/2025 9:45 AM EDT [facility] [address] [place] [address] Bridget Bhat DO [address] [place] [address] ILD (interstitial lung disease) ([facility]) (Primary Dx); Rheumatoid arthritis involving multiple sites with positive rheumatoid factor ([facility]) Social History Tobacco Use Types Packs/Day Years Used Date Smoking Tobacco: Former Cigarettes 1.5 20 1 982 - 2001 Pipe Passive Smoke Exposure: Past Smokeless Tobacco: Never Tobacco Cessation:Counseling Given: Not Answered Comments:extensive second hand exposure in childhood, started smoking 19ys Alcohol Use Standard Drinks/Week Comments Yes 0 (1 standard drink = 0.6 oz pur e alcohol) PHQ-2 Answer Date Recorded Patient Health Questionnaire-2 Score 0 03/18/2025 AUDIT-C Answer Date Recorded Q1: How often do you have a drink containing alc ohol? Monthly or less 03/18/2025 Q2: How many drinks containi ng alcohol do you have on a typical day when you are drinking? 1 or 2 03/18/2025 Q3: How often do you have si x or more drinks on one occasion? Never 03/18/2025 PHQ-2A Answer Date Recorded Patient Health Questionnaire-2 Score 0 01/03/2023 Comments Unknown Sex and Gender Information Value Date Recorded Sex Assigned at Not on file Legal Sex Female 7:43 PM EDT Gender Identity Not on file Sexual Orientation Not on file documented as of this encounter Last Filed Vital Signs Vital Sign Reading Time Taken Comments Blood Pressure 91/60 03/18/2025 9:32 AM EDT Pulse 85 03/18/2025 9:32 AM EDT Temperature 36.6 C (97.9 F) 03/18/2025 9:32 AM EDT Respiratory Rate 16 03/18/2025 9:32 AM EDT Oxygen Saturation 99% 03/18/2025 9:32 AM EDT 2lpm Inhaled Oxygen Concentration - - Weight 86.5 kg (190 lb 11.2 oz) 03/18/2025 9:32 AM EDT Height 160 cm (5' 3 ) 03/18/2025 9:32 AM EDT Body Mass Index 33.78 03/18/2025 9:32 AM EDT documented in this encounter Functional Status * AUDIT-C Score Answer Date of Assessment Author 1 03/18/2025 9:40 AM EDT Oralia Shepherd * Question Answer Date of Assessment Author Q1: How often do you have a drink containing alcohol? Monthly or less 03/18/2025 9:40 AM EDT Sujit Shepherd Q2: How many drinks containi ng alcohol do you have on a typical day when you are drinking? 1 or 2 03/18/2025 9:40 AM EDT Edna Shepherd Q3: How often do you have si x or more drinks on one occasion? Never 03/18/2025 9:40 AM EDT Edna Shepherd * Over the past 2 weeks, how often have you been bothered by any of the following problems? Question Answer Date of Assessment Author Little interest or pleasure in doing things Not at all 03/18/2025 9:35 AM EDT Edna Shepherd Feeling down, depressed, or hopeless Not at all 03/18/2025 9:35 AM EDT Edna Shepherd Patient Health Questionnaire -2 Score 0 03/18/2025 9:35 AM EDT Edna Shepherd documented as of this encounter Miscellaneous Notes * Progress Notes - Bridget Bhat DO - 03/18/2025 9:45 AM EDT Rheumatology Office Visit - Follow-up HPI: Prior fellow patient, transferred to id 06/2024. Karyn Sanz is a 63 y.o. female who is here for a follow up of rheumatoid arthritis complicated by interstitial lung disease requiring supplemental oxygen at rest. Rheum medication history: Leflunomide (diffuse blistering rash) SSZ ( lack of response) HCQ (Lack of reponse) Methotrexate [id number] ( d/c due to ILD/hypersensitivity pneumonitis) Adalimumab (partial response only with weekly injection) Xeljanz ( ineffective) Actemra ( ineffective). Rituximab 07/2020 RA protocol every 6 months, then transitioned to every 4 months in 01/2021- current MMF 1500 bid- 06/2024 stopped due to GI side effects- transitioned to Myfortic 360 mg BID with plans to uptitrate. Prednisone intermittently. Interim history: Follow-up for RA-ILD. She is on Rituximab every 4 months (RA dosing) and myfortic acid 750 mg BID. She is currently on 2 L of O2 when she is sitting and talking, 3L with movement. If she is doing more strenuous activity then it needs to go to 4 L- reports this has been largely unchanged. She felt ready for her Rituximab before her last infusion, noticed achey fingers and ankles priorto receiving it. Last cycle was in January 2025, scheduled again June 08 and . She reports that she has been doing better overall. She was able to go [employer] with her grandchildren last Friday. She might have gotten RSV (was around children with the virus), did not get tested, she saw her primary care doctor, she took a Z pack, she continues to have a lingering cough, this was in January 2025. She keeps a morning cough. She cancelled her follow-up with pulmonology, rescheduled for July. She does not want to do lung transplant at this time. History of slipped disc in back, sometimes has some pain there, uses salon pas. She had her medication adjusted for diabetes, is now on Mounjaro, she has also had weight loss withthis. She has also noticed that this has helped her breath. She takes mullein gummies , she uses it cough up phlegm, notices it does help her, understands there is no evidence for this in regards to safety etc. Review of system: 14 point ROS was done, negative other than mentioned in HPI. 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 Morbid obesity (CMS/HCC) Obesity ANDRES on CPAP Personal history of other diseases of the respiratory system History of asthma Personal history of pneumonia (recurrent) History of pneumonia Rheumatoid arthritis involving multiple sites with positive rheumatoid factor (CMS/HCC) since age 36 Psx: Past Surgical History: Procedure Laterality Date APPENDECTOMY N/A Appendectomy from [facility] HYSTERECTOMY N/A Hysterectomy from [facility] TUBAL LIGATION N/A Tubal Ligation from [facility] FMx: Family History Problem Relation Name Age of Onset Lung cancer Mother Lung cancer Father COPD Sister No Known Problems Sister No Known Problems Brother Lung cancer Other Breast cancer Other Conversions - Other Other FHx: mental illness No Known Problems Son Irritable bowel syndrome Daughter Sx: Social History Tobacco Use Smoking status: Former Current packs/day: 0.00 Average packs/day: 1.5 packs/day for 20.0 years (30.0 ttl pk-yrs) Types: Cigarettes, Pipe Start date: 1981 Quit date: 2001 Years since quittin.5 Passive exposure: Past Smokeless tobacco: Never Tobacco comments: extensive second hand exposure in childhood, started smoking 19ys Substance Use Topics Alcohol use: Yes Alcohol/week: 0.0 - 1.0 standard drinks of alcohol Allergies: Allergies Allergen Reactions Leflunomide Unknown - Patient states they do not know rxn details Penicillins Unknown - Patient states they do not know rxn details Sulfa Drugs Rash Medications: Objective Physical Exam: GENERAL APPERANCE: In no distress, sitting in chair, on oxygen 2-3 L SKIN: No rashes. RESPIRATORY: clear to auscultation, good breath sounds PSYCHIATRIC: Congruent mood and affect. MUSCULOSKELETAL: No tenderness or synovitis appreciated of PIPs, MCPs, wrists, elbows. Labs: Lab Results Component Value Date SEDRATE 63 (H) 11/05/2024 RF 24 (H) 12/11/2023 CRP 14.9 (H) 11/05/2024 CCPIGG 106.6 (H) 12/11/2023 Imaging Studies: 02/2024 HRCT: Stable pulmonary fibrosis consistent ASSESSMENT & PLAN: Seropositive RA, ILD Diagnosed at the age of 36, seropositive, erosive, with ILD CCP 106.6 (<5.0), RF 24 (<14). CRP and ESR chronically elevated Currently on Rituximab every 4 months (2 g, RA dosing) continue. Myfortic 720 mg BID per pulmonology Needs full Ig profile prior to next infusion, she has had low IgM, does predispose her to infection -Consider decreasing to 1 g every 4 months in setting of Ig profile (pending pulmonology opinion onthis as she appears to be doing well at this time, however missed her last pulmonology appointment), joints appear to be doing well based on physical exam and history -Consider immunology evaluation for possible IVIG in future depending on Ig profile. IgM has been decreased since 04/2023. No increase in infections noted. -Monitoring labs today Review of recent pulm note, worsening ILD, they are considering anti fibrotic, they placed referralplaced for lung transplant (patient is hesitant for this and reports she does not want a lung transplant today). Notes she is taking mullein gummies to help cough up sputum and reports it is helping-we discussed that there is not enough evidence to recommend this from a medical standpoint but to discuss with pulmonology as well. High risk for osteporosis The patient has several risk factors for osteoporosis including mcc steroid use history (several years) and long standing RA. She reports that her last DEXA was a couple year ago, no records available. She is not sure if she has had one done with her PCP, she wants to check with PCP before we reorderone again. Vitamin D okay Obstructive sleep apnea On CPAP CAD Follows with cardiology Osteoarthritis: Pain at the 1st carpometacarpal joint bilaterally Diclofenac gel as needed. Splints as needed Obstructive sleep apnea: Could not tolerate CPAP T2DM, obesity She has lost weight with Krista she notes this has helped with her breathing as well #Health Maintenance Received high dose flu vaccine in pulmonology clinic. Given prescription for RSV vaccine by pulmonology- recommend coordinating vaccine with rituximab infusion (time vaccination for when the next rituximab dose is due, then hold rituximab for at least 2weeks after vaccination). Fully vaccinated for pneumococcal disease. Reports receiving both shingles vaccines. Immunization History Administered Date(s) Administered Influenza, High-dose, Split Virus, Trivalent, Injectable, preservative free 10/14/2018, 06/23/2024 Influenza, high-dose, quadrivalent 10/14/2018 Influenza, injectable, quadrivalent 05/07/2017 Influenza, injectable, quadrivalent, preservative free 07/08/2019, 07/02/2023 Influenza, recombinant, quadrivalent, injectable, preservative free 07/14/2020 [employer] COVID-19 Vaccine (Jack Cap) 12+ years (jamee-sucrose) 04/03/2022 Pneumococcal 20-harley Conj Vaccine 10/04/2022 Pneumococcal Conjugate PCV 13 07/09/2017 Rsvpref, Recombinant, Protein Subunit, Adjuvent 07/21/2024 Tdap 05/29/2018 Zoster, Recombinant 01/03/2023, 03/01/2024 Time spent: 42 minutes Follow Up: Next scheduled follow up: 4 months (same day as pulm) documented in this encounter Plan of Treatment Upcoming Encounters Date Type Department Care Team (Late st Contact Info) Description 07/27/2025 9:00 AM EST Office Visit [facility] Medicine Specialties [address] [place] [address] Kamini Fu DO [address] [place] [address] 07/27/2025 11:15 AM EST Office Visit [facility] Medicine Specialties [address] [place] [address] Bridget Bhat DO [address] [place] [address] documented as of this encounter Results * (ABNORMAL) Sedimentation Rate, Automated (03/18/2025 10:45 AM EDT) Sedimentation Rate 45(H) <30 mm/hr 2024 1:07 PM EDT [facility] Blood Venous blood specimen / Unknown Venipuncture / Unknown 03/18/2025 10:45 AM EDT 03/18/2025 10:46 AM EDT [facility] BLOOD ORDERABLES Final Resu lt Performing Organization Address [facility]/ZIP Co de Phone Number [facility] [address] [place] [address] * (ABNORMAL) C-Reactive Protein, Plasma (03/18/2025 10:45 AM EDT) Pathologist [facility] CRP, Plasma 11.4(H) <=8.0 mg/L 03/18/2025 12:54 PM EDT [facility] Blood Venous blood specimen / Unknown Venipuncture / Unknown 03/18/2025 10:45 AM EDT 03/18/2025 10:46 AM EDT Narrative [facility] - 03/18/2025 12:54 PM EDT This CRP test is appropriate for assessment of infection, systemic inflammation and/or tissue injury. To assess cardiovascular disease risk order high sensitivity CRP (CRPH). [facility] BLOOD ORDERABLES Final Resu lt [facility] [address] [place] [address] * (ABNORMAL) CBC and Differential (03/18/2025 10:45 AM EDT) WBC Count 20.11(H) 3.70 - 10.30 10*3/uL LAB HEMATOLOGY METHOD 03/18/2025 12:53 PM EDT [facility] RBC Count 4.70 3.90 - 5.20 10*6/uL LAB HEMATOLOGY METHOD 03/18/2025 12:53 PM EDT [facility] HGB 13.0 11.2 - 15.7 g/dL LAB HEMATOLOGY METHOD 03/18/2025 12:53 PM EDT [facility] HCT 41.8 34.0 - 45.0 % LAB HEMATOLOGY METHOD 03/18/2025 12:53 PM EDT [facility] Platelet Count 378(H) 155 - 369 10*3/uL LAB HEMATOLOGY METHOD 03/18/2025 12:53 PM EDT [facility] MCV 89 79 - 98 fL LAB HEMATOLOGY METHOD 03/18/2025 12:53 PM EDT [facility] MCH 27.7 26.0 - 32.0 pg LAB HEMATOLOGY METHOD 03/18/2025 12:53 PM EDT [facility] MCHC 31.1 30.7 - 35.5 g/dL LAB HEMATOLOGY METHOD 03/18/2025 12:53 PM EDT [facility] RDW 12.9 11.5 - 14.5 % LAB HEMATOLOGY METHOD 03/18/2025 12:53 PM EDT [facility] MPV 11.1 8.8 - 12.5 fL LAB HEMATOLOGY METHOD 03/18/2025 12:53 PM EDT [facility] nRBC 0.0 <=0.0 per 100 WBCs LAB HEMATOLOGY METHOD 03/18/2025 12:53 PM EDT [facility] Differential Type Automated LAB HEMATOLOGY METHOD 03/18/2025 12:53 PM EDT [facility] Neutrophils % 65 % LAB HEMATOLOGY METHOD 03/18/2025 12:53 PM EDT [facility] Lymphocytes % 21 % LAB HEMATOLOGY METHOD 03/18/2025 12:53 PM EDT [facility] Monocytes % 9 % LAB HEMATOLOGY METHOD 03/18/2025 12:53 PM EDT [facility] Eosinophils % 3 % LAB HEMATOLOGY METHOD 03/18/2025 12:53 PM EDT [facility] Basophils % 1 % LAB HEMATOLOGY METHOD 03/18/2025 12:53 PM EDT [facility] Immature Granulocytes % 1 % LAB HEMATOLOGY METHOD 03/18/2025 12:53 PM EDT [facility] Neutrophils Absolute 13.37(H) 1.60 - 6.10 10*3/uL LAB HEMATOLOGY METHOD 03/18/2025 12:53 PM EDT [facility] Lymphocytes Absolute 4.17(H) 1.20 - 3.90 10*3/uL LAB HEMATOLOGY METHOD 03/18/2025 12:53 PM EDT [facility] Monocytes Absolute 1.71(H) 0.30 - 0.90 10*3/uL LAB HEMATOLOGY METHOD 03/18/2025 12:53 PM EDT [facility] Eosinophils Absolute 0.65(H) 0.00 - 0.50 10*3/uL LAB HEMATOLOGY METHOD 03/18/2025 12:53 PM EDT [facility] Basophils Absolute 0.10 0.00 - 0.10 10*3/uL LAB HEMATOLOGY METHOD 03/18/2025 12:53 PM EDT [facility] Immature Granulocytes Absolute 0.11(H) 0.00 - 0.06 10*3/uL LAB HEMATOLOGY METHOD 03/18/2025 12:53 PM EDT [facility] Blood Venous blood specimen / Unknown Venipuncture / Unknown 03/18/2025 10:45 AM EDT 03/18/2025 10:46 AM EDT Narrative [facility] - 03/18/2025 12:53 PM EDT Therapeutic decision making should be based on absolute values, rather than percentages. Bridget Bhat DO LAB BLOOD ORDERABLES Final Resu lt [facility] [address] [place] [address] * (ABNORMAL) Comprehensive Metabolic Panel, Plasma (03/18/2025 10:45 AM EDT) Glucose, Plasma 156(H) 74 - 99 mg/dL 03/18/2025 12:54 PM EDT [facility] BUN, Plasma 11 8 - 23 mg/dL 03/18/2025 12:54 PM EDT [facility] Creatinine, Plasma 0.61 0.60 - 1.10 mg/dL 03/18/2025 12:54 PM EDT [facility] BUN/Creatinine Ratio 18 03/18/2025 12:54 PM EDT [facility] Sodium, Plasma 138 136 - 145 mmol/L 03/18/2025 12:54 PM EDT [facility] Potassium, Plasma 4.4 3.6 - 4.9 mmol/L 03/18/2025 12:54 PM EDT [facility] Chloride, Plasma 100 97 - 107 mmol/L 03/18/2025 12:54 PM EDT [facility] CO2, Plasma 26 22 - 29 mmol/L 03/18/2025 12:54 PM EDT [facility] Anion Gap 12 6 - 16 mmol/L 03/18/2025 12:54 PM EDT [facility] Total Calcium, Plasma 9.6 8.9 - 10.2 mg/dL 03/18/2025 12:54 PM EDT [facility] Total Protein 7.2 6.3 - 7.9 g/dL 03/18/2025 12:54 PM EDT [facility] Albumin, Plasma 3.8 3.5 - 5.2 g/dL 03/18/2025 12:54 PM EDT [facility] AST, Plasma 22 10 - 35 U/L 03/18/2025 12:54 PM EDT [facility] ALT, Plasma 20 10 - 35 U/L 03/18/2025 12:54 PM EDT [facility] Alkaline Phosphatase, Plasma 113 46 - 142 U/L 03/18/2025 12:54 PM EDT [facility] Total Bilirubin, Plasma 0.4 0.2 - 1.1 mg/dL 03/18/2025 12:54 PM EDT [facility] eGFRcr 98.7 mL/min/1.7 3m*2 03/18/2025 12:54 PM EDT [facility] Comment:Reported eGFRcr in m L/min/1.73m2 is based the CKD-EPI 2020 equation that does not use a race coefficient. Blood Venous blood specimen / Unknown Venipuncture / Unknown 03/18/2025 10:45 AM EDT 03/18/2025 10:46 AM EDT us Bridget Antic DO LAB BLOOD ORDERABLES Final Resu lt [facility] [address] [place] [address] documented in this encounter Visit Diagnoses Diagnosis ILD (interstitial lung disease) (CMS/HCC)- Primary Postinflammatory pulmonary fibrosis Rheumatoid arthritis involving multiple sites with positive rheumatoid factor (CMS/HCC) documented in this encounter Additional Health Concerns Assessment Noted Time A fall risk assessment has been complete d for the patient 03/18/2025 9:35 AM EDT A Body Mass Index follow-up plan has been documented for the patient 03/18/2025 10:34 AM EDT documented as of this encounter Care Teams Oracle Manager Relationship Specialty Start Date End Date Eben Liu MD [address] [place] [id number] PCP - General Internal Medicine 12/19/23 documented as of this encounter
--- OUTSIDE RECORDS SUMMARY | 2025-03-30 09:49 | XMS_ITS | Encounter Summary ---
Author Organization Healthcare Address [address] [place] [address] Care Team Providers Care International Relations Teacher Name Role Phone Eben Liu MD Primary Care Provider [phone] Encounter Details Date Type Department Care Team (Late st Contact Info) Description 11/05/2024 Orders Only [place] [facility] [address] [place] [address] Deysi Pandey, PharmD High risk medication use (Primary Dx) Social History Tobacco Use Types Packs/Day Years Used Date Smoking Tobacco: Former Cigarettes 1.5 20 1 982 - 2002 Pipe Smokeless Tobacco: Never Comments:extensive second jennings nd exposure in childhood, started smoking 21ys Alcohol Use Standard Drinks/Week Comments No 0 (1 standard drink = 0.6 oz [...] on file documented as of this encounter Functional Status * AUDIT-C Score [...] things Not at all 03/18/2025 9:35 AM Edna Jensen Feeling down, depressed, or hopeless Not at all 03/18/2025 9:35 AM [place] Edna Shepherd Patient Health Questionnaire -2 Score 0 03/18/2025 9:35 AM EDT Edna Shepherd documented as of this encounter Miscellaneous Notes * Addendum Note - Bridget Mccarthy DO - 11/05/2024 12:22 PM ESTAddended by: BRIDGET MCCARTHY on: 03/18/2025 10:22 AM Modules accepted: Orders documented in this encounter Plan of Treatment Upcoming Encounters Date Type Department Care Team (Late st Contact Info) Description 07/27/2025 9:00 AM EST Office Visit [facility] Medicine Specialties [address] [place] [address] Kamini Fu DO [address] [place] [address] 07/27/2025 11:15 AM EST Office Visit [place] [facility] [address] [place] [address] Bridget Mccarthy DO [address] [place] [address] documented as of this encounter Visit Diagnoses Diagnosis High risk medication use- Primary documented in this encounter Additional Health Concerns Assessment Noted Time A fall risk assessment has been complete d for the patient 11/05/2024 9:46 AM EST A Body Mass Index follow-up plan has been documented for the patient 11/05/2024 10:25 AM EST documented as of this encounter Care Teams International Relations Teacher Relationship Specialty Start Date End Date Eben Liu MD [address] [place] [address] PCP - General Internal Medicine 12/19/23 documented as of this encounter
--- OUTSIDE RECORDS SUMMARY | 2025-03-30 09:49 | XMS_ITS | Encounter Summary ---
Author Organization Healthcare Address [address] [place] [address] Care Team Providers Care Gold Miner Name Role Phone Eben Liu MD Primary Care Provider [phone] Encounter Details Date Type Department Care Team (Late st Contact Info) Description 12/25/2023 Orders Only External Location [address] [place] [address] Provider, External Social History Tobacco Use Types Packs/Day Years Used Date Smoking Tobacco: Former Cigarettes 1.5 20 1 982 - 2002 Pipe Smokeless Tobacco: Never Comments:extensive second jenn[place] nd exposure in childhood, started smoking 19ys Alcohol Use Standard Drinks/Week Comments No 0 (1 standard drink = 0.6 oz pur e alcohol) PHQ-2 Answer Date Recorded Patient Health Questionnaire-2 Score 0 12/19/2023 PHQ-2A Answer Date Recorded Patient Health Questionnaire-2 Score 0 01/03/2023 Comments Unknown Sex and Gender Information Value Date Recorded Sex Assigned at Not on file Legal Sex Female 7:43 PM EDT Gender Identity Not on file Sexual Orientation Not on file documented as of this encounter Plan of Treatment Upcoming Encounters Date Type Department Care Team (Late Contact Info) Description 07/27/2025 9:00 AM EST Office Visit [facility] [address] [place] [address] Kamini Fu, DO [address] [place] [address] 07/27/2025 11:15 AM EST Office Visit [facility] [address] [place] [address] AnticBridget, DO [address] [place] [address] documented as of this encounter Procedures Procedure Name Priority Date/Time Associated Diagnosis Comments CT MSK OUTSIDE IMAGES 12/25/2023 8:31 AM EDT documented in this encounter Results * CT MSK OUTSIDE IMAGES (12/25/2023 8:31 AM EDT) Anatomical Region Laterality Modality Computed Tomogra phy 12/25/2023 8:31 AM EDT External Provider IMG CT PROCEDURES Final Result documented in this encounter Visit Diagnoses Not on filedocumented in this encounter Additional Health Concerns Assessment Noted Time A fall risk assessment has been complete d for the patient 12/19/2023 9:10 AM EDT A Body Mass Index follow-up plan has been documented for the patient 12/19/2023 10:51 AM EDT documented as of this encounter Care Teams Gold Miner Relationship Specialty Start Date End Date Eben Liu MD [address] [place] [address] PCP - General Internal Medicine 12/19/23 documented as of this encounter
--- OUTSIDE RECORDS SUMMARY | 2025-03-30 09:49 | XMS_ITS | Encounter Summary ---
Author Organization Healthcare Address [address] [place] [address] Care Team Providers Care Airplane Tube Builder Name Role Phone Eben Liu MD Primary Care Provider [phone] Encounter Details Date Type Department Care Team (Late st Contact Info) Description 12/25/2023 Orders Only External Location [address] [place] [address] Provider, External Social History Tobacco Use Types [...] Description 07/27/2025 9:00 AM EST Office Visit [place] [facility]ties [address] [place] [address] Kamini Fu, DO [address] [place] [address] 07/27/2025 11:15 AM EST Office Visit [place] [facility] [address] [place] [address] AnticBridget, DO [address] [place] [address] documented as of this encounter Procedures Procedure Name Priority Date/Time Associated Diagnosis Comments CT NEURO OUTSIDE IMAGES 12/25/2023 8:34 AM EDT documented in this encounter Results * CT NEURO OUTSIDE IMAGES (12/25/2023 8:34 AM EDT) Anatomical Region Laterality Modality Computed Tomogra phy 12/25/2023 8:34 AM EDT External Provider IMG CT PROCEDURES [...] documented as of this encounter Care Teams Airplane Tube Builder Relationship Specialty Start Date End Date Eben Liu MD [address] [place] [address] PCP - General Internal Medicine 12/19/23 documented as of this encounter
--- OUTSIDE RECORDS SUMMARY | 2025-03-30 09:49 | XMS_ITS | Encounter Summary ---
Author Organization Healthcare Address [address] [place] [address] Care Team Providers Care Side Laster Name Role Phone Eben Liu MD Primary Care Provider [phone] Encounter Details Date Type Department Care Team (Late st Contact Info) Description 01/19/2024 Orders Only External Location [address] [place] [address] Provider, External Social History Tobacco Use Types [...] Description 07/27/2025 9:00 AM EST Office Visit [place] [facility] [address] [place] [address] Kamini Fu, DO [address] [place] [address] 07/27/2025 11:15 AM EST Office Visit [facility] [address] [place] [address] AnticBridget, DO [address] [place] [address] documented as of this encounter Procedures Procedure Name Priority Date/Time Associated Diagnosis Comments MR NEURO OUTSIDE IMAGES 01/19/2024 3:06 PM EDT documented in this encounter Results * MR NEURO OUTSIDE IMAGES (01/19/2024 3:06 PM EDT) Anatomical Region Laterality Modality Magnetic Resonan ce 01/19/2024 3:06 PM EDT us External Provider IMG MRI PROCEDURES Final Resul t documented in this encounter Visit Diagnoses Not on filedocumented in this encounter Additional Health Concerns Assessment Noted Time A fall risk assessment has been complete d for the patient 12/19/2023 9:10 AM EDT A Body Mass Index follow-up plan has been documented for the patient 12/19/2023 10:51 AM EDT documented as of this encounter Care Teams Side Laster Relationship Specialty Start Date End Date Eben Liu MD [address] [place] [address] PCP - General Internal Medicine 12/19/23 documented as of this encounter
--- OUTSIDE RECORDS SUMMARY | 2025-03-30 09:49 | XMS_ITS | Encounter Summary ---
Author Organization [facility] Address [address] [place] [address] Care Team Providers Care Rail Operations Controller Name Role Phone Kwame Solomon MD Primary Care Provider [phone] Eben Liu MD Primary Care Provider [phone] Encounter Details Date Type Department Care Team (Late st Contact Info) Description 10/07/2022 Orders Only External Location [address] [place] [address] Provider, External Social History Tobacco Use Types Packs/Day Years Used Date Smoking Tobacco: Former Cigarettes 1.5 20 1 982 - 2001 Pipe Smokeless Tobacco: Never Comments:extensive second jennings nd exposure in childhood, started smoking 19ys Alcohol Use Standard Drinks/Week Comments No 0 (1 standard drink = 0.6 oz pur e alcohol) PHQ-2 Answer Date Recorded Patient Health Questionnaire-2 Score 0 10/04/2022 Comments Unknown Sex and Gender Information Value Date Recorded Sex Assigned at Not on file Legal Sex Female 7:43 PM EDT Gender Identity Not on file Sexual Orientation Not on file COVID-19 Exposure Response Date Recorded In the last 10 days, have yo u been in contact with someone who was confirmed or suspected to have Coronavirus/COVID-19? No / Unsure 10/04/2022 9:08 AM EST documented as of this encounter Plan of Treatment Upcoming Encounters Date Type Department Care Team (Late Contact Info) Description 07/27/2025 9:00 AM EST Office Visit [facility] Medicine Specialties [address] [place] [address] Kamini Fu, DO [address] [place] [address] 07/27/2025 11:15 AM EST Office Visit [facility] Medicine Specialties [address] [place] [address] Bridget Bhat, DO [address] [place] [address] documented as of this encounter Procedures Procedure Name Priority Date/Time Associated Diagnosis Comments XR OUTSIDE IMAGES 10/07/2022 9:37 AM EST documented in this encounter Results * XR OUTSIDE IMAGES (10/07/2022 9:37 AM EST) Anatomical Region Laterality Modality Radiographic Anna ging 10/07/2022 9:37 AM EST us External Provider IMG XR PROCEDURES Final Result documented in this encounter Visit Diagnoses Not on filedocumented in this encounter Additional Health Concerns Assessment Noted Time A fall risk assessment has been complete d for the patient 10/04/2022 9:24 AM EST A Body Mass Index follow-up plan has been documented for the patient 10/04/2022 10:10 AM EST documented as of this encounter Care Teams Rail Operations Controller Relationship Specialty Start Date End Date Kwame Solomon MD [address] [facility] [address] [place] [id number] PCP - General 01/19/21 12/18/23 Eben Liu MD [address] [facility] [address] [place] [address] PCP - General Internal Medicine 12/19/23 documented as of this encounter
--- OUTSIDE RECORDS SUMMARY | 2025-03-30 09:49 | XMS_ITS ---
Author Organization [facility] Address [address] [place] [address] Care Team Providers Care Line Maintenance Technician Name Role Phone Eben Liu MD Primary Care Provider [phone] Transplant Episode Lung Candidate [facility] ([place], [place]) - KYLEE Referred on 06/23/2024 Marked as Internal Hold on 07/21/2024 Reason: Patient Choice Lung CoordinatorJocelyne Yates Phone: N/A Fax: N/A Email: N/A Care Team Name Role Phone Fax Email Jocelyne Yates Lung Coordinator N/A N/A N/A Events Pre-Transplant Referred: 06/23/2024
--- OUTSIDE RECORDS SUMMARY | 2025-03-30 09:49 | XMS_ITS | Encounter Summary ---
Author Organization [facility] Address [address] [place] [address] Care Team Providers Care Enterprise Application Administrator Name Role Phone Eben Liu MD Primary Care Provider [phone] Encounter Details Date Type Department Care Team (Late st Contact Info) Description 01/26/2025 Orders Only [facility] Medicine Specialties [address] [place] [address] Provider, MD Lewis [address] [place] [address] Social History Tobacco Use Types Packs/Day Years Used Date Smoking Tobacco: Former Cigarettes 1.5 20 1 982 - 2001 Pipe Smokeless Tobacco: Never Comments:extensive second jennings nd exposure in childhood, started smoking 19ys Alcohol Use Standard Drinks/Week Comments No 0 (1 standard drink = 0.6 oz pur e alcohol) PHQ-2 Answer Date Recorded Patient Health Questionnaire-2 Score 0 11/05/2024 PHQ-2A Answer Date Recorded Patient Health Questionnaire-2 [...] Description 07/27/2025 9:00 AM EST Office Visit [facility] Medicine Specialties [address] [place] [address] CamKamini santana R, DO [address] [place] [address] 07/27/2025 11:15 AM EST Office Visit [facility] [address] [place] [address] Bridget Bhat, DO [address] [place] [address] documented as of this encounter Procedures Procedure Name Priority Date/Time Associated Diagnosis Comments IMMUNOGLOBULIN G SUBCLASS 4 (SO) Routine 01/26/2025 12:51 PM EDT CBC WITH AUTO DIFFERENTIAL Routine 01/26 12:16 PM EDT documented in this encounter Results * Immunoglobulin G Subclass 4 (SO) (01/26/2025 12:51 PM EDT) Blood Venous blood specimen / Unknown Historical Provider MD LAB REF LAB BLOOD AND FLU ID ORD Final Result * CBC and Differential (01/26/2025 12:16 PM EDT) Blood Venous blood specimen / Unknown Historical Provider LAB BLOOD ORDERABLES Ciera l Result documented in this encounter Visit Diagnoses Not on filedocumented in this encounter Additional Health Concerns Assessment Noted Time A fall risk assessment has been complete d for the patient 11/05/2024 9:46 AM EST A Body Mass Index follow-up plan has been documented for the patient 11/05/2024 10:25 AM EST documented as of this encounter Care Teams Enterprise Application Administrator Relationship Specialty Start Date End Date Eben Liu MD [address] [place] [address] PCP - General Internal Medicine 12/19/23 documented as of this encounter
--- OUTSIDE RECORDS SUMMARY | 2025-03-30 09:49 | XMS_ITS | Encounter Summary ---
Author Organization Healthcare Address [address] [place] [address] Care Team Providers Care [employer] Wireman Name Role Phone Eben Liu MD Primary Care Provider [phone] Encounter Details Date Type Department Care Team (Latest Contact Info) Description 03/18/2025 Travel Social History Tobacco Use Types Packs/Day Years Used Date Smoking Tobacco: Former Cigarettes 1.5 20 1 982 - 2001 Pipe Passive Smoke Exposure: Past Smokeless Tobacco: Never Comments:extensive second jennings nd [...] things Not at all 03/18/2025 9:35 AM [place] Edna Shepherd Feeling down, depressed, or hopeless Not at all 03/18/2025 9:35 AM [place] Edna Shepherd Patient Health Questionnaire -2 Score 0 03/18/2025 9:35 AM [place] Edna Shepherd documented as of this encounter Plan of Treatment Upcoming Encounters Date Type Department Care Team (Late st Contact Info) Description 07/27/2025 9:00 AM EST Office Visit [facility] Medicine Specialties [address], [address] [place] [phone] Kamini Fu, DO [address] [place] [phone] 07/27/2025 11:15 AM EST Office Visit [facility] Medicine Specialties [address], [address] [place] [phone] Bridget Bhat, DO [address] [place] [address] documented as of this encounter Visit Diagnoses Not on filedocumented in this encounter Additional Health Concerns Assessment Noted Time A fall risk assessment has been complete d for the patient 03/18/2025 9:35 AM EDT A Body Mass Index follow-up plan has been documented for the patient 03/18/2025 10:34 AM EDT documented as of this encounter Care Teams [employer] Relationship Specialty Start Date End Date Eben Liu MD [address] [place] [address] PCP - General Internal Medicine 12/19/23 documented as of this encounter
--- OUTSIDE RECORDS SUMMARY | 2025-03-30 09:49 | XMS_ITS | Clinical Summary ---
Author Organization [facility] Address [address] [place] [address] Care Team Providers Care Technical Support Consultant Name Role Phone Eben Liu MD Primary Care Provider [phone] Allergies Active Allergy Reactions Criticality Noted Date Comments Leflunomide Unknown - Patient st ates they do not know rxn details Low 10/13/2015 Penicillins Unknown - Patient st ates they do not know rxn details Low 10/13/2015 Sulfa Drugs Rash Low 03/22/2021 Medications albuterol 108 (90 Base) MCG/ACT inhaler Inhale 2 puffs as needed. 07/20/20 15 Active atorvastatin (Lipitor) 40 MG tablet Take 1 tablet (40 mg) by mouth daily. 12/22/19 21 Active metoprolol succinate XL (Toprol-XL) 25 MG 24 hr tablet Take 1 tablet (25 mg) by mouth daily. 03/11/20 21 Active spironolactone (Aldactone) 25 MG tablet Take 1 tablet (25 mg) by mouth daily. 02/24/20 21 Active Admelog 100 UNIT/ML injection Inject 0.15 mL (15 Units) under the skin 3 (three) times a day. 11/16/19 21 Active Blood Glucose Monitoring Suppl (FreeStyle Lite) device Inject 1 each under the skin 4 (four) times a day. 10/16/19 21 Active FREESTYLE LITE test strip 1 each by Other route 4 (four) times a day. 03/06/20 21 Active FreeStyle lancets 1 each by Other route 4 (four) times a day. 03/06/20 21 Active albuterol (2.5 MG/3ML) 0.083% nebulizer solution Take 3 mL by nebulization every 6 (six) hours if needed for wheezing or shortness of breath. 360 mL 1 04/24/20 21 Active Insulin Aspart FlexPen 100 UNIT/ML solution pen-injector Inject 20-50 Units under the skin See administration instructions. 07/24/20 21 Active esomeprazole (NexIUM) [address] capsule Take 1 capsule (40 mg) by mouth daily. 12/14/19 22 Active fluticasone (Flonase) 50 MCG/ACT nasal spray USE 2 SPRAY(S) IN EACH NOSTRIL ONCE DAILY 12/14/19 22 Active B-D ULTRAFINE III SHORT PEN 31G X 8 MM misc 4 (four) times a day. use as directed 01/06/20 22 Active diclofenac (Voltaren) 1 % topical gel Apply 2-4 grams to upper and lower extremities four times a day. (max of 32 grams per day) 400 g 1 09/18/19 23 Active Lantus 100 UNIT/ML injection vial 04/23/20 23 Active lidocaine (Lidoderm) 5 % patch USE 1 PATCH EXTERNALLY ONCE DAILY; LEAVE ON MOST PAINFUL AREA FOR UP TO 12 HOURS 12/25/19 24 Active EQ Vegetable Laxative 8.6 MG tablet Take 1 tablet (8.6 mg) by mouth daily. 12/25/19 24 Active Mounjaro 10 MG/0.5ML solution pen-injector solution pen-injector Inject 0.5 mL (10 mg) under the skin 1 (one) time per week. Active riTUXimab (Rituxan) 500 MG/50ML chemo injectionIndica tions:Seroposit olga rheumatoid arthritis of multiple sites (CMS/HCC) Infuse 100 mL (1,000 mg) into a venous catheter every 14 (fourteen) days. 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 Use with spacer. 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 360 tablet 3 09/15/19 25 Active isosorbide mononitrate ER (Imdur) 60 MG 24 hr tablet Take 1 tablet (60 mg) by mouth daily. 09/16/19 25 Active metFORMIN (Glucophage) 1000 MG tablet Take 1 tablet (1,000 mg) by mouth 2 (two) times a day. 12/24/19 21 025 Discontinu ed(Per Patient Report) Farxiga 10 MG tablet Take 1 tablet (10 mg) by mouth 1 (one) time each day. 02/18/20 23 025 Discontinu ed(Per Patient Report) Active Problems Problem Noted Date Diagnosed Date Anemia 06/23/2024 CAD (coronary artery disease) 06/23/2024 HLD (hyperlipidemia) 06/23/2024 Dyspnea 06/23/2024 Leukocytosis 06/23/2024 Asthma 06/23/2024 HTN (hypertension) 06/23/2024 Sinusitis 06/23/2024 Pleuritic chest pain 06/23/2024 UTI (urinary tract infection) 06/23/2024 Acute and chronic respiratory failure with hypox ia 10/01/2023 COPD (chronic obstructive pulmonary disease) Carotid artery stenosis 07/02/2023 Morbid obesity with body mass index (BMI) of 40. 0 or higher 04/03/2022 Osteoarthritis 03/23/2021 ANDRES (obstructive sleep apnea) 04/20/2019 Neck pain 10/03/2016 Transaminitis 07/04/2016 Aortic ejection murmur 11/13/2015 ILD (interstitial lung disease) 10/30/2015 Rheumatoid arthritis 10/13/2015 Lung nodule 10/13/2015 Type 2 diabetes mellitus 10/13/2015 Encounters Date Type Department Care Team Description 03/18/2025 9:45 AM EDT Office Visit [facility] Medicine Specialties [address] [place] [phone] Bridget Bhat DO ILD (interstitial lung disease) ([facility]/HCC) (Primary Dx); Rheumatoid arthritis involving multiple sites with positive rheumatoid factor ([facility]) 03/18/2025 Travel 01/26/2025 Orders Only [facility] Medicine Specialties [address] [place] [address] ProviderLewis MD 01/20/2025 Telephone [facility] Medicine Specialties [address] [place] [address] Todd Henning PharmD from Last 3 Months Immunizations Immunization Administration Dates Next Due Influenza, High-dose, Split Virus, Trivalent, Injectable, preservative free 06/23/2024,10/14/2018 Influenza, high-dose, quadrivalent 10/14/2018 Influenza, injectable, quadrivalent 05/07/2017 Influenza, injectable, quadrivalent, preservativ e free 07/02/2023,07/08/2019 Influenza, recombinant, quad rivalent, injectable, preservative free 07/14/2020 Pfizer-BioNTReamaze COVID-19 Vac cine (Jack Cap) 12+ years (jamee-sucrose) 04/03/2022 Pneumococcal 20-harley Conj Vaccine 10/04/2022 Pneumococcal Conjugate PCV 13 07/09/2017 Rsvpref, Recombinant, Protein Subunit, Adjuvent 07/21/2024 Tdap 05/29/2018 Zoster, Recombinant 03/01/2024,01/03/2023 Family History Medical History Relation Name Comments No Known Problems Brother Irritable bowel syndrome Daughter Lung cancer Father Lung cancer Mother Lung cancer Other 1 Breast cancer Other 2 Conversions - Other Other 3 FHx: men katie illness COPD Sister 1 No Known Problems Sister 2 No Known Problems Son Relation Name Status Comments Brother Alive Daughter Alive Father Alive Mother Other 1 Other 2 Other 3 Sister 1 Alive Sister 2 Alive Son Alive Social History Tobacco Use Types Packs/Day Years [...] on file Sexual Orientation Not on file Last Filed Vital Signs Vital Sign Reading [...] Mass Index 33.78 03/18/2025 9:32 AM EDT Plan of Treatment Upcoming Encounters Date Type Department Care Team (Late st Contact Info) Description 07/27/2025 9:00 AM EST Office Visit [facility] Medicine Specialties [address] [place] [address] Kamini Fu DO [address] [place] [address] 07/27/2025 11:15 AM EST Office Visit [facility] Medicine Specialties [address], [address] [place] [address] Bridget Bhat DO [address] [place] [address] Health Maintenance Due Date Last Done Comments [facility]-Bone Density Scan 1958 [facility]-Medicare Annual Wellness (AWV) 1960 [facility]-Infant/Child/Adol SDOH Screenings 1958 Diabetes: Dental Exam 1968 [facility]- SDOH Screenings 1976 [facility]-Adult SDOH Screenings 1976 CT Colonography 2003 Colonoscopy 2003 FIT-DNA 2003 FIT 2003 FOBT 2003 Sigmoidoscopy 2003 [facility]-Colorectal Cancer Screening 2003 [facility]-Breast Cancer Screening 2008 [facility]-Diabetes: Hemoglobin A1C 04/13/2019 10/14/2018 [id number] Vaccine (2 - Pfizer risk series) 04/24/2022 04/03/2022 [facility]-Influenza Vaccine (#1) 05/09/202506/23, 07/02/2023, 07/14/2020, Additional history exists [facility]-Depression Screening 03/18/2026 03/18/2025, 03/09 [facility]-DTaP,Tdap,and Td Vaccines (2 - Td or Tdap) 05/29/2028 05/29/2018 [facility]-Hepatitis C Screening Completed 05/10/2020 [facility]-Pneumococcal Vaccine: 50+ Years Completed 10/04/2022, 07/09/2017 [facility]-Zoster Vaccines Completed 03/01/2024, [facility]-RSV Vaccine: 60+ Years or Completed 07/21/2024 [facility]-Obesity Intervention Completed 025, 03/18/2025, 11/05/2024, Additional history exists HPV Vaccines Aged Out No longer eligi ble based on patient's age to complete this topic [facility]-HIB Vaccines Aged Out No longer e ligible based on patient's age to complete this topic [facility]-Hepatitis A Vaccines Aged Out No longer eligible based on patient's age to complete this topic [facility]-IPV Vaccines Aged Out No longer e ligible based on patient's age to complete this topic [facility]-Rotavirus Vaccines Aged Out No lo nger eligible based on patient's age to complete this topic Procedures Procedure Name Priority Date/Time Associated Diagnosis Comments COMPREHENSIVE METABOLIC PANEL, PLASMA Routine 03/18/2025 10:45 AM EDT ILD (interstitial lung disease) (CMS/HCC) Rheumatoid arthritis involving multiple sites with positive rheumatoid factor (CMS/HCC) CBC WITH AUTO DIFFERENTIAL Routine 03/18/2025 10:45 AM EDT ILD (interstitial lung disease) (CMS/HCC) Rheumatoid arthritis involving multiple sites with positive rheumatoid factor (CMS/HCC) C-REACTIVE PROTEIN, PLASMA Routine 03/18/2025 10:45 AM EDT ILD (interstitial lung disease) (CMS/HCC) Rheumatoid arthritis involving multiple sites with positive rheumatoid factor (CMS/HCC) SEDIMENTATION RATE, AUTOMATED Routine 03/18/2025 10:45 AM EDT ILD (interstitial lung disease) (CMS/HCC) Rheumatoid arthritis involving multiple sites with positive rheumatoid factor (CMS/HCC) IMMUNOGLOBULIN G SUBCLASS 4 (SO) Routine 01/26/2025 12:51 PM EDT CBC WITH AUTO DIFFERENTIAL Routine 01/26/2025 12:16 PM EDT HEPATITIS C ANTIBODY W/REFLEX TO HCV QUANT PCR Routine 05/10/2020 12:33 PM EDT HEMOGLOBIN A1C Routine 10/14/2018 12:28 PM EST from Last 3 Months or Most Recently Relevant to Health Maintenance Results * (ABNORMAL) Sedimentation Rate, Automated (03/18/2025 10:45 AM EDT) Sedimentation Rate 45(H) <30 mm/hr 2024 1:07 PM EDT [facility] Blood Venous blood specimen / Unknown Venipuncture / Unknown 03/18/2025 10:45 AM EDT 03/18/2025 10:46 AM EDT us Bridget Bhat DO LAB BLOOD ORDERABLES Final Resu lt [facility] [address] [place] [address] * (ABNORMAL) CBC and Differential (03/18/2025 10:45 AM EDT) Only the most recent of2 resultswithin the time period is included. WBC Count 20.11(H) 3.70 - 10.30 10*3/uL LAB HEMATOLOGY METHOD 03/18/2025 12:53 PM EDT [facility] RBC Count 4.70 3.90 - 5.20 10*6/uL LAB HEMATOLOGY METHOD 03/18/2025 12:53 PM EDT [facility] HGB 13.0 11.2 - 15.7 g/dL LAB HEMATOLOGY METHOD 03/18/2025 12:53 PM EDT [facility] HCT 41.8 34.0 - 45.0 % LAB HEMATOLOGY METHOD 03/18/2025 12:53 PM EDT [facility] Platelet Count 378(H) 155 - 369 10*3/uL LAB HEMATOLOGY METHOD 03/18/2025 12:53 PM EDT [facility] MCV 89 79 - 98 fL LAB HEMATOLOGY METHOD 03/18/2025 12:53 PM EDT [facility] MCH 27.7 26.0 - 32.0 pg LAB HEMATOLOGY METHOD 03/18/2025 12:53 PM EDT [facility] MCHC 31.1 30.7 - 35.5 g/dL LAB HEMATOLOGY METHOD 03/18/2025 12:53 PM EDT [facility] RDW 12.9 11.5 - 14.5 % LAB HEMATOLOGY METHOD 03/18/2025 12:53 PM EDT [facility] MPV 11.1 8.8 - 12.5 fL LAB HEMATOLOGY METHOD 03/18/2025 12:53 PM EDT [facility] nRBC 0.0 <=0.0 per 100 WBCs LAB HEMATOLOGY METHOD 03/18/2025 12:53 PM EDT [facility] Differential Type Automated LAB HEMATOLOGY METHOD 03/18/2025 12:53 PM EDT [facility] Neutrophils % 65 % LAB HEMATOLOGY METHOD 03/18/2025 12:53 PM EDT [facility] Lymphocytes % 21 % LAB HEMATOLOGY METHOD 03/18/2025 12:53 PM EDT [facility] Monocytes % 9 % LAB HEMATOLOGY METHOD 03/18/2025 12:53 PM EDT [facility] Eosinophils % 3 % LAB HEMATOLOGY METHOD 03/18/2025 12:53 PM EDT [facility] Basophils % 1 % LAB HEMATOLOGY METHOD 03/18/2025 12:53 PM EDT [facility] Immature Granulocytes % 1 % LAB HEMATOLOGY METHOD 03/18/2025 12:53 PM EDT [facility] Neutrophils Absolute 13.37(H) 1.60 - 6.10 10*3/uL LAB HEMATOLOGY METHOD 03/18/2025 12:53 PM EDT [facility] Lymphocytes Absolute 4.17(H) 1.20 - 3.90 10*3/uL LAB HEMATOLOGY METHOD 03/18/2025 12:53 PM EDT [facility] Monocytes Absolute 1.71(H) 0.30 - 0.90 10*3/uL LAB HEMATOLOGY METHOD 03/18/2025 12:53 PM EDT [facility] Eosinophils Absolute 0.65(H) 0.00 - 0.50 10*3/uL LAB HEMATOLOGY METHOD 03/18/2025 12:53 PM EDT [facility] Basophils Absolute 0.10 0.00 - 0.10 10*3/uL LAB HEMATOLOGY METHOD 03/18/2025 12:53 PM EDT [facility] Immature Granulocytes Absolute 0.11(H) 0.00 - 0.06 10*3/uL LAB HEMATOLOGY METHOD 03/18/2025 12:53 PM EDT [facility] Blood Venous blood specimen / Unknown Venipuncture / Unknown 03/18/2025 10:45 AM EDT 03/18/2025 10:46 AM EDT [facility] - 03/18/2025 12:53 PM EDT Therapeutic decision making should be based on absolute values, rather than percentages. us Bridget Antic DO LAB BLOOD ORDERABLES Final Resu lt [facility] [address] [place] [address] * (ABNORMAL) C-Reactive Protein, Plasma (03/18/2025 10:45 AM EDT) CRP, Plasma 11.4(H) <=8.0 mg/L 03/18/2025 12:54 PM EDT [facility] Blood Venous blood specimen / Unknown Venipuncture / Unknown 03/18/2025 10:45 AM EDT 03/18/2025 10:46 AM EDT Narrative [facility] - 03/18/2025 12:54 PM EDT This CRP test is appropriate for assessment of infection, systemic inflammation and/or tissue injury. To assess cardiovascular disease risk order high sensitivity CRP (CRPH). Bridget Bhat DO LAB BLOOD ORDERABLES Final Resu lt [facility] [address] [place] [address] * (ABNORMAL) Comprehensive Metabolic Panel, Plasma (03/18/2025 10:45 AM EDT) Glucose, Plasma 156(H) 74 - 99 mg/dL 03/18/2025 12:54 PM EDT [facility] BUN, Plasma 11 8 - 23 mg/dL 03/18/2025 12:54 PM EDT [facility] Creatinine, Plasma 0.61 0.60 - 1.10 mg/dL 03/18/2025 12:54 PM EDT [facility] BUN/Creatinine Ratio 18 03/18/2025 12:54 PM EDT [facility] Sodium, Plasma 138 136 - 145 mmol/L 03/18/2025 12:54 PM EDT [facility] Potassium, Plasma 4.4 3.6 - 4.9 mmol/L 03/18/2025 12:54 PM EDT [facility] Chloride, Plasma 100 97 - 107 mmol/L 03/18/2025 12:54 PM EDT [facility] CO2, Plasma 26 22 - 29 mmol/L 03/18/2025 12:54 PM EDT [facility] Anion Gap 12 6 - 16 mmol/L 03/18/2025 12:54 PM EDT [facility] Total Calcium, Plasma 9.6 8.9 - 10.2 mg/dL 03/18/2025 12:54 PM EDT [facility] Total Protein 7.2 6.3 - 7.9 g/dL 03/18/2025 12:54 PM EDT [facility] Albumin, Plasma 3.8 3.5 - 5.2 g/dL 03/18/2025 12:54 PM EDT [facility] AST, Plasma 22 10 - 35 U/L 03/18/2025 12:54 PM EDT [facility] ALT, Plasma 20 10 - 35 U/L 03/18/2025 12:54 PM EDT [facility] Alkaline Phosphatase, Plasma 113 46 - 142 U/L 03/18/2025 12:54 PM EDT [facility] Total Bilirubin, Plasma 0.4 0.2 - 1.1 mg/dL 03/18/2025 12:54 PM EDT [facility] eGFRcr 98.7 mL/min/1.7 3m*2 03/18/2025 12:54 PM EDT [facility] Comment:Reported eGFRcr in m L/min/1.73m2 is based the CKD-EPI 2020 equation that does not use a race coefficient. Blood Venous blood specimen / Unknown Venipuncture / Unknown 03/18/2025 10:45 AM EDT 03/18/2025 10:46 AM EDT Bridget Bhat DO LAB BLOOD ORDERABLES Final Resu lt [facility] [address] [place] [address] * Immunoglobulin G Subclass 4 (SO) (01/26/2025 12:51 PM EDT) Blood Venous blood specimen / Unknown us Historical Provider MD LAB REF LAB BLOOD AND FLU ID ORD Final Result * Hepatitis C Antibody (05/10/2020 12:33 PM EDT) Hepatitis C Antibody NEGATIVE Reference Range: Negative [facility] 05/10/2020 12:3 3 PM EDT 05/10/2020 1:20 PM EDT us Jessica Lee DO LAB BLOOD ORDERABLES Final Re sult [facility] * (ABNORMAL) Hemoglobin A1c (10/14/2018 12:28 PM EST) Hemoglobin A1c 8.6(H) 4.7 - 6.0 % [facility] Comment: Glycohemoglobin Reference Range, 0 years and up: 4.7 to 6.0% . HA1C Interpretive Data: Diagnosis of Diabetes: Diabetic > or = 6.5% Pre-diabetic 5.7 to 6.4% Non-diabetic < or = 5.6% . Glycemic Targets for Type I and Type II Diabetics: Non- Adults <7.0% Adults <6.0% Children and Adolescents <7.5% . Source: [place] [employer]. Standards of medical care in diabetes, 2017. Diabetes Care.2017:40 (suppl 1):S1-S135. . HbA1c assay performed by an ion-exchange chromatography method that is certified traceable to the DCCT. 10/14/2018 12:2 8 PM EST 10/14/2018 3:45 PM EST Historical Provider LAB BLOOD ORDERABLES Ciera l Result [facility] from Last 3 Months or Most Recently Relevant to Health Maintenance Insurance MEDICARE MEDICARE Care Teams Technical Support Consultant Relationship Specialty Start Date End Date Eben Liu MD [address] [place] [id number] PCP - General Internal Medicine 12/19/23
[2025-03-30 10:58] LABS: Chloride 96 mmol/L (98-107); Potassium 4.4 mmoL/L (3.5-5.1); Sodium 132 mmol/L (136-145)
[2025-03-30 11:01] LABS: Blood Urea Nitrogen 18 mg/dl (7-17); Creatinine,Serum 0.60 mg/dl (0.52-1.04); Estimated Glomerular Filt Rate 100 ml/min (>60); GFR (African American) 121 ML/MIN (>60)
[2025-03-30 11:02] LABS: Anion Gap 9.4 mEq/L (5-15); Calcium 9.5 mg/dl (8.4-10.2); Carbon Dioxide 31 mmol/L (22.0-30.0); Glucose 308 mg/dl (74-100)
[2025-03-30 12:10] LABS: Hemoglobin A1C 7.9 % (4.0-6.0)
== END 2025-03-30 23:59 | disposition home or self-care (01) ==
LOC: LAB 09:47
PROVIDERS: PCP Internal Medicine Adolescent Medicine; Visit Provider Internal Medicine Adolescent Medicine
DX: E11.65 Type 2 diabetes mellitus with hyperglycemia (principal)
CPT/HCPCS: 36415; 80048; 83036

== ENCOUNTER 2025-04-11 14:22 | Emergency (ER) | payer MEDICARE, SELFPAY ==
--- OUTSIDE RECORDS SUMMARY | 2025-03-18 09:45 | XMS_ITS | Encounter Summary ---
Author Organization Healthcare Address [address] [place] [address] Care Team Providers Care Grade Teacher Name Role Phone Eben Liu MD Primary Care Provider Reason for Visit * Reason Comments Follow-up Rheumatoid Arthritis Encounter Details Date Type Department Care Team (Late st Contact Info) Description 03/18/2025 9:45 AM EDT Office Visit [facility] [address] [place] [address] Bridget Bhat DO [address] [place] [address] ILD (interstitial lung disease) ([facility]) (Primary Dx); Rheumatoid arthritis involving multiple sites with positive rheumatoid factor ([facility]) Social History Tobacco Use Types Packs/Day Years [...] Follow-up HPI: Prior fellow patient, transferred to nc 06/2024. Karyn Sanz is a 63 y.o. female who is here for a follow up of rheumatoid arthritis complicated by interstitial lung disease requiring supplemental oxygen at rest. Rheum medication history: Leflunomide (diffuse blistering rash) SSZ ( lack of response) HCQ (Lack of reponse) Methotrexate [id number] ( d/c due to ILD/hypersensitivity pneumonitis) Adalimumab [...] better overall. 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 She might [...] has several risk factors for osteoporosis including longterm steroid use history (several years) and long [...] Influenza, recombinant, quadrivalent, injectable, preservative free 07/14/2020 [employer] COVID-19 Vaccine (Jack Cap) 12+ years ([id number]) [...] Description 07/27/2025 9:00 AM EST Office Visit [facility] Medicine Specialties [address] [place] [address] Kamini Fu DO [address] [place] [address] 07/27/2025 11:15 AM EST Office Visit [facility] Medicine Specialties [address] [place] [address] Bridget Bhat DO [address] [place] [address] documented as of this encounter Results * (ABNORMAL) Sedimentation Rate, Automated (03/18/2025 10:45 AM EDT) Sedimentation Rate 45(H) <30 mm/hr 2024 1:07 PM EDT [facility] Blood Venous blood specimen / Unknown Venipuncture / Unknown 03/18/2025 10:45 AM EDT 03/18/2025 10:46 AM EDT Medium LAB BLOOD ORDERABLES Final Resu lt Performing Organization Address [facility]/ZIP Co de Phone Number [facility] [address] [place] [address] * (ABNORMAL) C-Reactive Protein, Plasma (03/18/2025 10:45 AM EDT) Pathologist [facility] CRP, Plasma 11.4(H) <=8.0 mg/L 03/18/2025 12:54 PM EDT [facility] Blood Venous blood specimen / Unknown Venipuncture / Unknown 03/18/2025 10:45 AM EDT 03/18/2025 10:46 AM EDT Narrative [facility] - 03/18/2025 12:54 PM EDT This CRP test is appropriate for assessment of infection, systemic inflammation and/or tissue injury. To assess cardiovascular disease risk order high sensitivity CRP (CRPH). Medium LAB BLOOD ORDERABLES Final Resu lt [facility] [address] [place] [address] * (ABNORMAL) CBC and Differential (03/18/2025 10:45 AM EDT) WBC Count 20.11(H) 3.70 - 10.30 10*3/uL LAB HEMATOLOGY METHOD 03/18/2025 12:53 PM EDT [facility] RBC Count 4.70 3.90 - 5.20 10*6/uL LAB HEMATOLOGY METHOD 03/18/2025 12:53 PM EDT [facility] HGB 13.0 11.2 - 15.7 g/dL LAB HEMATOLOGY METHOD 03/18/2025 12:53 PM EDT [facility] HCT 41.8 34.0 - 45.0 % LAB HEMATOLOGY METHOD 03/18/2025 12:53 PM EDT [facility] Platelet Count 378(H) 155 - 369 10*3/uL LAB HEMATOLOGY METHOD 03/18/2025 12:53 PM EDT [facility] MCV 89 79 - 98 fL LAB HEMATOLOGY METHOD 03/18/2025 12:53 PM EDT [facility] MCH 27.7 26.0 - 32.0 pg LAB HEMATOLOGY METHOD 03/18/2025 12:53 PM EDT [facility] MCHC 31.1 30.7 - 35.5 g/dL LAB HEMATOLOGY METHOD 03/18/2025 12:53 PM EDT [facility] RDW 12.9 11.5 - 14.5 % LAB HEMATOLOGY METHOD 03/18/2025 12:53 PM EDT [facility] MPV 11.1 8.8 - 12.5 fL LAB HEMATOLOGY METHOD 03/18/2025 12:53 PM EDT [facility] nRBC 0.0 <=0.0 per 100 WBCs LAB HEMATOLOGY METHOD 03/18/2025 12:53 PM EDT [facility] Differential Type Automated LAB HEMATOLOGY METHOD 03/18/2025 12:53 PM EDT [facility] Neutrophils % 65 % LAB HEMATOLOGY METHOD 03/18/2025 12:53 PM EDT [facility] Lymphocytes % 21 % LAB HEMATOLOGY METHOD 03/18/2025 12:53 PM EDT [facility] Monocytes % 9 % LAB HEMATOLOGY METHOD 03/18/2025 12:53 PM EDT [facility] Eosinophils % 3 % LAB HEMATOLOGY METHOD 03/18/2025 12:53 PM EDT [facility] Basophils % 1 % LAB HEMATOLOGY METHOD 03/18/2025 12:53 PM EDT [facility] Immature Granulocytes % 1 % LAB HEMATOLOGY METHOD 03/18/2025 12:53 PM EDT [facility] Neutrophils Absolute 13.37(H) 1.60 - 6.10 10*3/uL LAB HEMATOLOGY METHOD 03/18/2025 12:53 PM EDT [facility] Lymphocytes Absolute 4.17(H) 1.20 - 3.90 10*3/uL LAB HEMATOLOGY METHOD 03/18/2025 12:53 PM EDT [facility] Monocytes Absolute 1.71(H) 0.30 - 0.90 10*3/uL LAB HEMATOLOGY METHOD 03/18/2025 12:53 PM EDT [facility] Eosinophils Absolute 0.65(H) 0.00 - 0.50 10*3/uL LAB HEMATOLOGY METHOD 03/18/2025 12:53 PM EDT [facility] Basophils Absolute 0.10 0.00 - 0.10 10*3/uL LAB HEMATOLOGY METHOD 03/18/2025 12:53 PM EDT [facility] Immature Granulocytes Absolute 0.11(H) 0.00 - 0.06 10*3/uL LAB HEMATOLOGY METHOD 03/18/2025 12:53 PM EDT [facility] Blood Venous blood specimen / Unknown Venipuncture / Unknown 03/18/2025 10:45 AM EDT 03/18/2025 10:46 AM EDT Narrative [facility] - 03/18/2025 12:53 PM EDT Therapeutic decision making should be based on absolute values, rather than percentages. Bridget Bhat DO LAB BLOOD ORDERABLES Final Resu lt [facility] [address] [place] [address] * (ABNORMAL) Comprehensive Metabolic Panel, Plasma (03/18/2025 10:45 AM EDT) Glucose, Plasma 156(H) 74 - 99 mg/dL 03/18/2025 12:54 PM EDT [facility] BUN, Plasma 11 8 - 23 mg/dL 03/18/2025 12:54 PM EDT [facility] Creatinine, Plasma 0.61 0.60 - 1.10 mg/dL 03/18/2025 12:54 PM EDT [facility] BUN/Creatinine Ratio 18 03/18/2025 12:54 PM EDT [facility] Sodium, Plasma 138 136 - 145 mmol/L 03/18/2025 12:54 PM EDT [facility] Potassium, Plasma 4.4 3.6 - 4.9 mmol/L 03/18/2025 12:54 PM EDT [facility] Chloride, Plasma 100 97 - 107 mmol/L 03/18/2025 12:54 PM EDT [facility] CO2, Plasma 26 22 - 29 mmol/L 03/18/2025 12:54 PM EDT [facility] Anion Gap 12 6 - 16 mmol/L 03/18/2025 12:54 PM EDT [facility] Total Calcium, Plasma 9.6 8.9 - 10.2 mg/dL 03/18/2025 12:54 PM EDT [facility] Total Protein 7.2 6.3 - 7.9 g/dL 03/18/2025 12:54 PM EDT [facility] Albumin, Plasma 3.8 3.5 - 5.2 g/dL 03/18/2025 12:54 PM EDT [facility] AST, Plasma 22 10 - 35 U/L 03/18/2025 12:54 PM EDT [facility] ALT, Plasma 20 10 - 35 U/L 03/18/2025 12:54 PM EDT [facility] Alkaline Phosphatase, Plasma 113 46 - 142 U/L 03/18/2025 12:54 PM EDT [facility] Total Bilirubin, Plasma 0.4 0.2 - 1.1 mg/dL 03/18/2025 12:54 PM EDT [facility] eGFRcr 98.7 mL/min/1.7 3m*2 03/18/2025 12:54 PM EDT [facility] Comment:Reported eGFRcr in m L/min/1.73m2 is based the CKD-EPI 2020 equation that does not use a race coefficient. Blood Venous blood specimen / Unknown Venipuncture / Unknown 03/18/2025 10:45 AM EDT 03/18/2025 10:46 AM EDT us Bridget Antic DO LAB BLOOD ORDERABLES Final Resu lt [facility] [address] [place] [address] documented in this encounter Visit Diagnoses Diagnosis [...] documented as of this encounter Care Teams Grade Teacher Relationship Specialty Start Date End Date Eben Liu MD [address] [place] [address] PCP - General Internal Medicine 12/19/23 documented as of this encounter
[2025-04-11] VITALS (23 sets, daily range): BP systolic 115–195; BP diastolic 66–152; PULSE 81–94; RESP 15–29; TEMP 36.6; O2SAT 93–100; BMI 33.3
--- NOTE | 2025-04-11 14:43 | ED_ITS ---
<Statement entered by Brenna Ospina MD - 04/11/25 22:46> I was consulted by the SHELBY, and we discussed the complexity of the problems being addressed. I approved the treatment and management plan for this patient's care in the emergency department, thus performing a substantive portion of the medical decision making. Brenna Ospina MD, MIHAI, FACEP Discharge Plan Disposition Patient Disposition: Xfer Other Condition: Fair Prescriptions Prescriptions: No Action Breztri Aerosphere 160-9-4.8 mcg/actuation HFA aerosol inhaler 2 inh inhalation BID Ozempic 0.25 mg or 0.5 mg (2 mg/3 mL) pen injector 2 mg SQ WEEKLY diclofenac sodium 1 % gel 2 g topical QID Rx Instructions: apply to single elbow, wrist or hand; for hand includes palm/fingers/back of hand polyethylene glycol 3350 [Miralax] 17 gram/dose powder 17 g PO DAILY PRN (Reason: Constipation) Farxiga 10 mg tablet 10 mg PO DAILY Qty: 90 3RF spironolactone 25 mg tablet 25 mg PO DAILY Qty: 90 3RF metoprolol succinate 25 mg tablet extended release 24 hr See Rx Instructions .ROUTE .COMPLEX Qty: 90 3RF Dose Instruction: TAKE 1 TABLET BY MOUTH ONCE DAILY FOR HYPERTENSION Rx Instructions: TAKE 1 TABLET BY MOUTH ONCE DAILY FOR HYPERTENSION isosorbide mononitrate 60 mg tablet extended release 24 hr 60 mg PO DAILY Qty: 90 1RF albuterol sulfate 90 mcg/actuation HFA aerosol inhaler 2 inh IH Q6H PRN (Reason: shortness of breath or wheezing) 90 Days Qty: 8.5 3RF fluticasone propionate [Flonase Allergy Relief] 50 mcg/actuation spray,suspension 1 spray NS BID 90 Days Qty: 16 3RF Rx Instructions: administer into each nostril atorvastatin 40 mg tablet See Rx Instructions .ROUTE .COMPLEX Qty: 90 3RF Dose Instruction: TAKE 1 TABLET BY MOUTH ONCE DAILY FOR HYPERLIPIDEMIA Rx Instructions: TAKE 1 TABLET BY MOUTH ONCE DAILY FOR HYPERLIPIDEMIA esomeprazole magnesium 40 mg capsule,delayed release(DR/EC) See Rx Instructions .ROUTE .COMPLEX Qty: 90 3RF Dose Instruction: Take 1 capsule by mouth once daily Rx Instructions: Take 1 capsule by mouth once daily metformin 500 mg tablet 1,000 mg PO DAILY (DME) inhalational spacing device 1 EACH spacer 1 each MC Q6H Qty: 1 0RF Rx Instructions: Use with Albuterol HFA. mycophenolate mofetil 500 MG tablet 1,500 mg PO BID lidocaine [Lidoderm] 5 % adhesive patch,medicated 1 patch topical DAILY Qty: 15 0RF Rx Instructions: leave on most painful area for up to 12 hrs ketorolac 10 mg tablet 10 mg PO Q6H PRN (Reason: pain) 1 Days Qty: 20 0RF aspirin 81 MG tablet,delayed release (DR/EC) 81 mg PO HS albuterol sulfate 2.5 MG/NEB solution for nebulization 2.5 mg IH DAILYP PRN (Reason: shortness of air) Referrals Follow up/Referrals: Eben Liu MD [Primary Care Provider, Internal Medicine] - See instructions Clinical Impressions Clinical Impression: Pre-syncope, Intracranial atherosclerosis, Visual disturbance Stand Alone Forms Stand Alone Forms: Transfer Record - ED Print Language Print Language: Swedish Discharge ED Provider: Kam Lainez General Adult HPI <AIREL Willams - Last Filed: 04/11/25 19:28> General Chief complaint: Weakness Stated complaint: weakness, headache Time Seen by Provider: 04/11/25 14:30 Mode of Arrival: Ambulatory Source of Information: Patient Limitations: No Limitations History of Present Illness HPI narrative: Mrs. Sanz is a 64 year old female presenting to the ED with complaints of neck pain, on the left side and left-sided headache that started this morning. She states that she woke up with a stiff neck states that she slept on it wrong patient denies any trauma or injury per history, denies any radicular type symptomatology, denies any numbness tingling, no upper or lower extremity weakness,. She states that later in the day (around 12:30 PM), she got up to make lunch when she had a presyncopal episode which made her nearly fall to the ground. She denies hitting her head or losing consciousness. 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 Patient also endorses 1 episode of nausea and vomiting, after the incident, denies any chest pain, denies any abdominal pain diarrhea constipation urinary type symptomatology, denies fever chills, denies any managements, denies any recent illness or sick contacts,. Her states that she has frequent headaches, but she states it has never been this bad. No formal diagnosis of migraines, patient has a PMH of RA, HTN, HLD, diabetes, interstitial lung disease, GERD, asthma, COPD. She also has a history of bulging discs in her neck as well as her back, CAD, ANDRES, carotid artery stenosis. Initial triage vitals are unremarkable, SpO2 is around 99 to 100% on 3 to 4 L nasal cannula. Please note that above description of symptoms, in this electronic medical record under categorization of recalled from ER triage doctor by RN are reflective of an initial nursing assessment, however, is not reflective of my full history and physical exam that was personally taken and clarified. Consequentially, this preceding description of symptoms, which may include the patient's categorized chief complaint in the EMR, do not reflect my personal clinical impression, and the ultimate description of history of present illness and patient stated complaints should be deferred to this section of the note. Unless stated otherwise or congruent with this section of the note, additional signs, symptoms, or incongruence should be interpreted as inaccurate with my clinical impression. Onset (ago): hour(s) Related Data Home Medications ?Medication ?Instructions ?Recorded ?Confirmed aspirin 81 mg tablet,delayed 81 mg PO heart health 10/29/19 02/02/25 release mycophenolate mofetil 500 mg tablet 1,500 mg PO BID rik ng transplant 07/12/20 02/02/25 albuterol sulfate 2.5 mg/3 mL 2.5 mg inhalation DAILYP PRN 01/11/21 02/02/25 (0.083 %) solution for nebulization shortness of air metformin 500 mg tablet 1,000 mg PO DAILY Diabetes 0 12/26/22 02/02/25 diclofenac sodium 1 % topical gel 2 g topical QID 06/0902/02/25 semaglutide 0.25 mg or 0.5 mg (2 2 mg SQ WEEKLY 02/02/25 mg/3 mL) subcutaneous pen injector (Ozempic) budesonide 160 mcg-glycopyr 9 2 inh inhalation BID 02/02/25 mcg-formot 4.8 mcg/actuation HFA inhaler (Breztri Aerosphere) polyethylene glycol 3350 17 17 g PO DAILY PRN Constipa tion 01/28/24 02/02/25 gram/dose oral powder (Miralax) Previous Rx's ?Medication ?Instructions ?Recorded inhalational spacing device ##1 03/18/19 albuterol sulfate 90 mcg/actuation 2 inh inhalation Q6 H PRN shortness 05/26/23 aerosol inhaler of breath or wheezing 90 day s #8.5 grams ketorolac 10 mg tablet 10 mg PO Q6H PRN pain 1 day #20 12/25/23 tabs lidocaine 5 % topical patch 1 patch topical DAILY #15 ea 12/25/23 (Lidoderm) dapagliflozin propanediol 10 mg 10 mg PO DAILY #90 tab s 01/28/24 tablet (Farxiga) isosorbide mononitrate 60 mg 60 mg PO DAILY hypertensi on #90 01/28/24 tablet,extended release 24 hr tabs metoprolol succinate 25 mg See Rx Instructions .Route 01/28/24 tablet,extended release 24 hr .COMPLEX #90 tabs spironolactone 25 mg tablet 25 mg PO DAILY FLUID RETEN TION #90 01/28/24 tabs fluticasone propionate 50 1 spray intranasal BID 90 da ys #16 05/24/24 mcg/actuation nasal grams spray,suspension (Flonase Allergy Relief) atorvastatin 40 mg tablet See Rx Instructions .Route 0 01/24/25 .COMPLEX #90 tabs esomeprazole magnesium 40 mg See Rx Instructions .Rout e 01/24/25 capsule,delayed release .COMPLEX #90 caps Allergies Allergy/AdvReac Type Severity Reaction Status Date / Time leflunomide (From ARAVA) Allergy Severe I-RASH Verified 02/01/25 09:19 Penicillins (PENICILLINS) Allergy Intermediate Unknown Verified 02/01/25 09:19 allergy reaction Sulfa (Sulfonamide Allergy Unknown Unknown Verified 02/01/25 09:19 Antibiotics) (SULFA allergy (SULFONAMIDE ANTIBIOTICS)) reaction [facility] <ARIEL Willams - Last Filed: 04/11/25 19:28> [facility] Disclaimer: The information contained in this section may have been updated after the patient was seen, as this information can be updated by other users. Medical History Chronic cough Allergic rhinitis History of rheumatoid arthritis Chronic hypoxemic respiratory failure Pneumonia due to COVID-19 virus Restrictive lung disease ILD (interstitial lung disease) Eosinophilia Mild persistent asthma Asthma Diastolic dysfunction HLD (hyperlipidemia) HTN (hypertension) Diabetes mellitus Unstable angina Gastroesophageal reflux disease Cardiac murmur Oxygen dependent Atypical angina Dyspnea Chest pain Rheumatoid arthritis COPD (chronic obstructive pulmonary disease) Surgical History Hx of cardiac catheterization Hx of tubal ligation Hx of total hysterectomy Hx of appendectomy Family History Other Cancer Hypertension Kidney disease Social History Smoking Status: Never smoker second hand exposure: No alcohol intake: never current occupational status: retired Travel in the last 8 weeks?: Inside the [place] household members: spouse housing: house current occupational exposures/hazards: No caffeine: Yes Have you lived/traveled outside US in past 30 days?: No Contact w/someone who lives/traveled outside US past 30 days?: No Exposure to someone with infectious disease in past 14 days?: No Do you have a fever (greater than 100.4 F or 38 C)?: No Have you tested positive for COVID-19?: No Exposed to someone with COVID-19 in past 14 days?: No Do you have a sore throat?: No Do you have a cough?: No Do you have any weakness?: No Do you have any diarrhea?: No Are you experiencing any unusual bleeding?: No Do you have any muscle aches/pain?: No Do you have any abdominal pain?: No Are you experiencing loss of taste or smell?: No Other Medical History Have you received the Flu Vaccine for this season: No Have you received the Pneumonia Vaccine: Yes <ARIEL Willams - Last Filed: 04/11/25 19:28> ROS Obtained: Yes All systems reviewed & no additional complaints except as documented Physical Exam <ARIEL Willams - Last Filed: 04/11/25 19:28> General General appearance: alert and in no apparent distress Head Head exam: atraumatic and normocephalic Eye Eye exam: Present PERRL and EOMI ENT ENT exam: Present mucous membranes moist Neck Neck exam: Present normal inspection and tenderness; Absent meningismus or lymphadenopathy Chest Chest inspection: Present normal inspection and symmetric chest wall rise Respiratory Respiratory exam: Present other (Crackles noted throughout, although, unsure of chronicity due to interstitial lung disease); Absent normal lung sounds bilaterally, respiratory distress, wheezes or stridor Cardiovascular Cardiovascular exam: Present regular rate and normal rhythm Abdominal Exam Abdominal exam: Present soft; Absent tenderness, guarding, rebound or rigidity Extremities Exam Extremities exam: Present normal inspection Neurological Exam Neurological exam: Present alert, oriented X3 and other (There is mild paraspinal tenderness to palpation at cervical spine, negative C-spine tenderness palpation, no managements, no upper or lower extremity weakness, patient moves extremity command, no gross sensation deficit,) Psychiatric Psychiatric exam: Present normal affect Skin Skin exam: Present warm and dry Medical Decision Making <ARIEL Willams - Last Filed: 04/11/25 19:28> Medical Records Medical records reviewed: Yes I reviewed the patient's medical records. Screening: Per USPSTF and CDC recommendations, given the prevalence of disease in our region, it is our hospital?s policy to screen for HIV and viral Hepatitis for all patients aged 18 and over and those with ongoing risk factors. Martin Inquiry Pt receiving controlled substance: No Martin was queried for this patient: No Vital Signs: 04/11/25 14:33 04/11/25 14:44 04/11/25 14:46 Temperature 97.8 F 97.8 F Temperature Source Oral Oral Pulse Rate 85 Pulse Rate [Apical] Pulse Rate [Right] 85 Respiratory Rate 16 16 Blood Pressure 156/84 H Blood Pressure [Left Arm] Blood Pressure [Right Arm] 156/84 H Blood Pressure Mean [Right Arm] 108 Blood Pressure Source Automatic Cuff Blood Pressure Source [Right Arm] Automatic Cuff Blood Pressure Position Supine Blood Pressure Position [Right Arm] Supine 02 Sat by Pulse Oximetry 99 99 99 Oxygen Delivery Method Nasal Cannula Room Air Nasal Cannula Oxygen Flow Rate (LPM) 4 4 04/11/25 15:00 04/11/25 15:30 04/11/25 16:29 Temperature Temperature Source Pulse Rate 81 81 83 Pulse Rate [Apical] Pulse Rate [Right] Respiratory Rate Blood Pressure 148/77 H 167/83 H 155/79 H Blood Pressure [Left Arm] Blood Pressure [Right Arm] Blood Pressure Mean [Right Arm] Blood Pressure Source Blood Pressure Source [Right Arm] Blood Pressure Position Blood Pressure Position [Right Arm] 02 Sat by Pulse Oximetry 100 98 100 Oxygen Delivery Method Oxygen Flow Rate (LPM) 04/11/25 16:31 04/11/25 16:32 04/11/25 16:33 Temperature Temperature Source Pulse Rate 85 Pulse Rate [Apical] 85 83 Pulse Rate [Right] Respiratory Rate Blood Pressure 145/66 H Blood Pressure [Left Arm] 145/66 H 155/70 H Blood Pressure [Right Arm] Blood Pressure Mean [Right Arm] Blood Pressure Source Blood Pressure Source [Right Arm] Blood Pressure Position Blood Pressure Position [Right Arm] 02 Sat by Pulse Oximetry 100 Oxygen Delivery Method Oxygen Flow Rate (LPM) 04/11/25 16:33 04/11/25 16:34 04/11/25 16:34 Temperature Temperature Source Pulse Rate 84 89 Pulse Rate [Apical] 84 Pulse Rate [Right] Respiratory Rate Blood Pressure 155/70 H 132/66 Blood Pressure [Left Arm] 132/66 Blood Pressure [Right Arm] Blood Pressure Mean [Right Arm] Blood Pressure Source Blood Pressure Source [Right Arm] Blood Pressure Position Blood Pressure Position [Right Arm] 02 Sat by Pulse Oximetry 100 100 Oxygen Delivery Method Oxygen Flow Rate (LPM) 04/11/25 17:00 Temperature Temperature Source Pulse Rate 84 Pulse Rate [Apical] Pulse Rate [Right] Respiratory Rate Blood Pressure 156/87 H Blood Pressure [Left Arm] Blood Pressure [Right Arm] Blood Pressure Mean [Right Arm] Blood Pressure Source Blood Pressure Source [Right Arm] Blood Pressure Position Blood Pressure Position [Right Arm] 02 Sat by Pulse Oximetry 100 Oxygen Delivery Method Oxygen Flow Rate (LPM) Lab Data Lab results reviewed: Yes I reviewed the patient's lab results. Lab Results 04/11/25 16:12: WBC 17.0 H, RBC 4.88, Hgb 13.4, Hct 43.1, MCV 88.3, MCH 27.5, M CHC 31.1 L, RDW 12.6, Plt Count 443 H, MPV 10.2, Neut % (Auto) 68.4, Lymph % (Auto) 21.2, Swisher % (Auto) 7.2, Eos % (Auto) 2.3, Baso % (Auto) 0.4, Neut # (Auto) 11.7 H, Lymph # (Auto) 3.6, Swisher # (Auto) 1.2 H, Eos # (Auto) 0.4, Baso # (Auto) 0.1, Sodium 137, Potassium 4.0, Chloride 100, Carbon Dioxide 31 H, Anion Gap 10.0, BUN 12, Creatinine 0.70, Estimated Creat Clear 74, Estimated GFR 84, Est GFR ( Amer) 101, Glucose 160 H, Calcium 9.9, Magnesium 1.5 L, Total Bilirubin 0.3, AST 26, ALT 20, Alkaline Phosphatase 142 H, Troponin I < 0.01, NT-Pro-B Natriuret Pep 39.2, Total Protein 7.7, Albumin 4.2, Globulin 3.5 H, Albumin/Globulin Ratio 1.2, HCV Ab ISAAK w/Rflx PCR Qn Negative, HIV Ag/Ab Combo Qual Negative 04/11/25 17:44: Troponin I < 0.01 04/11/25 16:12 04/11/25 16:12 Orders (Tests/Meds): ED MEDICATIONS Discontinued Medications Generic Name Dose Route Start Last Admin Trade Name Freq PRN Reason Stop Dose Admin Acetaminophen 1,000 mg 04/11/25 14:57 04/11/25 16:29 Acetaminophen 1,000mg/100ml Vial IV 04/11/25 14:58 1,000 mg ONCE ONE Administration Dexamethasone Sodium Phosphate 10 mg 04/11/25 14:56 04/11/25 16:25 Dexamethasone 4mg/Ml 1ml Vial IV 04/11/25 14:57 10 mg ONCE ONE Administration Diphenhydramine HCl 25 mg 04/11/25 14:56 04/11/25 16:23 Diphenhydramine 50mg/Ml Vial IV 04/11/25 14:57 25 mg ONCE ONE Administration Ceftriaxone Sodium 1 gm/ 50 mls @ 100 mls/hr 04/11/25 19:10 Sodium Chloride IV 04/11/25 19:39 ONCE ONE Iopamidol 80 ml 04/11/25 17:36 04/11/25 17:37 Iopamidol-370 (76%);100ml Bottle IV 04/11/25 17:37 80 ml ONCE ONE Administration Metoclopramide HCl 10 mg 04/11/25 14:56 04/11/25 16:21 Metoclopramide Hcl 10mg/2ml Vial IVP 04/11/25 14:57 10 mg ONCE ONE Administration Sodium Chloride 10 ml 04/11/25 17:36 04/11/25 17:37 Sodium Chloride 0.9% 10ml Syr (Rad Only) IV 04/11/25 17:37 10 ml ONCE ONE Administration Sodium Chloride 50 ml 04/11/25 17:36 04/11/25 17:37 0.9 % Sodium Chloride 50 Ml Vial IV 04/11/25 17:37 50 ml ONCE ONE Administration ORDERS Category Date Time Status CT angio head Stat Cat Scan 04/11/25 16:[address] angio neck Stat Cat Scan 04/11/25 16:[address] cervical spine wo con Stat Cat Scan 04/11/25 14:[address] head/brain wo con Stat Cat Scan 04/11/25 14:53 Completed XR chest portable Stat Exams 04/11/25 15:31 Completed Complete Blood Count Auto Diff Stat Lab 04/11/25 16:12 Completed Comprehensive Metabolic Panel Stat Lab 04/11/25 16:12 Completed HIV Combo Stat Lab 04/11/25 16:12 Completed Hepatitis C Ab Qual. W/ RFX Stat Lab 04/11/25 16:12 Completed Magnesium Stat Lab 04/11/25 16:12 Completed NT Pro Brain Natriuretic Pep. Stat Lab 04/11/25 16:12 Completed Troponin I Q3H Lab 04/11/25 17:44 Completed Troponin I Q3H Lab 04/11/25 20:45 Ordered Troponin I Stat Lab 04/11/25 16:12 Completed Medical Decision Narrative: 64-year-old female presents emergency department with presyncopal episode, nausea vomiting and left-sided headache, and visual disturbance, differential diagnose include but not limited to, migraine with aura, migraine without aura, tension headache, cervicogenic headache, cervicalgia, cervical spine fracture, cardiac arrhythmia, electrolyte disturbance, vasovagal syncope, genic syncope, situational syncope, orthostatic hypotension among others. I discussed patient case with attending physician Dr. Lainez Will obtain basic labs, proBNP, troponin, EKG,Magnesium level, orthostatics, EKG, will obtain CT reports without contrast, CT head without contrast, CXR, will give migraine cocktail with 1000 mg IV Tylenol, 10 mg IV dexamethasone, 25 mg IV Benadryl, and 10 mg IV Reglan for nausea. I reviewed the patient's CT cervical spine without contrast and with corresponding radiologic report, mild right neuroforaminal narrowing at C5-C6. Patient has leukocytosis of 17, as well as thrombocytosis of 443, leukocytosis appears somewhat chronic. I reviewed the patient's CT head without contrast along the corresponding radiologic report, no acute intracranial abnormality, dense calcification of the distal vertebral arteries bilaterally. Will obtain CTA head and neck with and without contrast for further evaluation of calcification of her vertebral arteries. Patient had positive orthostatic vital signs. I reviewed the patient's chest x-ray along with corresponding radiologic report, no acute cardiopulmonary process, stable chronic fibrosis. ALP is minimally elevated at 142, troponin is within normal limits at less than 0.01, proBNP within normal limits. Reexamination of the patient at approximately 6:25 PM, patient resting comfortably in bed, patient states her symptomatology as far as headache, pressure-like sensation, and presyncope, is improved. I reviewed the patient's CTA head and neck with and without contrast along with the corresponding radiologic reports, I did have an in-depth conversation about the radiology report and the radiologist spoke with me personally at approximately 6:44 PM, there is near occlusion versus occlusion of short segment of the proximal left LIFE SKILLS SPECIALIST, this could correlate to the patient's symptomatology. 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 I discussed this patient's case with Ladonna Thompson APRN/stroke navigator [facility] at approximately 7:03 PM, she is agreement with current treatment plan/transfer plan for TIA/CVA with new findings of left-sided [employer] SK[employer]IST occlusion and right sided vertebral artery occlusion, in the setting of presyncopal episode versus cerebral hypoperfusion with left-sided visual disturbance. Patient was accepted by transfer physician on behalf of of the stroke team. Patient's NIH at the bedside is a 1, headache is improved, pressure-like sensation improved, no further presyncopal or syncopal event. I discussed the results with the patient and family the bedside patient family in agreement with current treatment plan/transfer plan. I will also treat patient for pneumonia and give 1 g IV ceftriaxone due to leukocytosis, which I do think is somewhat chronic, due to the patient's immunocompromise state, however patient does have interstitial lung disease putting her at high risk for pneumonia, and pneumonia was thought to be more likely on the patient's CT findings. Thus we will treat with antibiotic prophylaxis. I discussed this patient's case with the attending physician at shift change, he will be assuming the patient's care/time in the emergency department. Disposition is pending transfer to [facility] for TIA/higher level of care with neurology and neurosurgery. <Kam Lainez MD - Last Filed: 04/11/25 19:52> Vital Signs: 04/11/25 14:33 04/11/25 14:44 04/11/25 14:46 Temperature 97.8 F 97.8 F Temperature Source Oral Oral Pulse Rate 85 Pulse Rate [Apical] Pulse Rate [Right] 85 Respiratory Rate 16 16 Blood Pressure 156/84 H Blood Pressure [Left Arm] Blood Pressure [Right Arm] 156/84 H Blood Pressure Mean [Right Arm] 108 Blood Pressure Source Automatic Cuff Blood Pressure Source [Right Arm] Automatic Cuff Blood Pressure Position Supine Blood Pressure Position [Right Arm] Supine 02 Sat by Pulse Oximetry 99 99 99 Oxygen Delivery Method Nasal Cannula Room Air Nasal Cannula Oxygen Flow Rate (LPM) 4 4 04/11/25 15:00 04/11/25 15:30 04/11/25 16:29 Temperature Temperature Source Pulse Rate 81 81 83 Pulse Rate [Apical] Pulse Rate [Right] Respiratory Rate Blood Pressure 148/77 H 167/83 H 155/79 H Blood Pressure [Left Arm] Blood Pressure [Right Arm] Blood Pressure Mean [Right Arm] Blood Pressure Source Blood Pressure Source [Right Arm] Blood Pressure Position Blood Pressure Position [Right Arm] 02 Sat by Pulse Oximetry 100 98 100 Oxygen Delivery Method Oxygen Flow Rate (LPM) 04/11/25 16:31 04/11/25 16:32 04/11/25 16:33 Temperature Temperature Source Pulse Rate 85 Pulse Rate [Apical] 85 83 Pulse Rate [Right] Respiratory Rate Blood Pressure 145/66 H Blood Pressure [Left Arm] 145/66 H 155/70 H Blood Pressure [Right Arm] Blood Pressure Mean [Right Arm] Blood Pressure Source Blood Pressure Source [Right Arm] Blood Pressure Position Blood Pressure Position [Right Arm] 02 Sat by Pulse Oximetry 100 Oxygen Delivery Method Oxygen Flow Rate (LPM) 04/11/25 16:33 04/11/25 16:34 04/11/25 16:34 Temperature Temperature Source Pulse Rate 84 89 Pulse Rate [Apical] 84 Pulse Rate [Right] Respiratory Rate Blood Pressure 155/70 H 132/66 Blood Pressure [Left Arm] 132/66 Blood Pressure [Right Arm] Blood Pressure Mean [Right Arm] Blood Pressure Source Blood Pressure Source [Right Arm] Blood Pressure Position Blood Pressure Position [Right Arm] 02 Sat by Pulse Oximetry 100 100 Oxygen Delivery Method Oxygen Flow Rate (LPM) 04/11/25 17:00 Temperature Temperature Source Pulse Rate 84 Pulse Rate [Apical] Pulse Rate [Right] Respiratory Rate Blood Pressure 156/87 H Blood Pressure [Left Arm] Blood Pressure [Right Arm] Blood Pressure Mean [Right Arm] Blood Pressure Source Blood Pressure Source [Right Arm] Blood Pressure Position Blood Pressure Position [Right Arm] 02 Sat by Pulse Oximetry 100 Oxygen Delivery Method Oxygen Flow Rate (LPM) Lab Data Lab Results 04/11/25 16:12: WBC 17.0 H, RBC 4.88, Hgb 13.4, Hct 43.1, MCV 88.3, MCH 27.5, M CHC 31.1 L, RDW 12.6, Plt Count 443 H, MPV 10.2, Neut % (Auto) 68.4, Lymph % (Auto) 21.2, Swisher % (Auto) 7.2, Eos % (Auto) 2.3, Baso % (Auto) 0.4, Neut # (Auto) 11.7 H, Lymph # (Auto) 3.6, Swisher # (Auto) 1.2 H, Eos # (Auto) 0.4, Baso # (Auto) 0.1, Sodium 137, Potassium 4.0, Chloride 100, Carbon Dioxide 31 H, Anion Gap 10.0, BUN 12, Creatinine 0.70, Estimated Creat Clear 74, Estimated GFR 84, Est GFR ( Amer) 101, Glucose 160 H, Calcium 9.9, Magnesium 1.5 L, Total Bilirubin 0.3, AST 26, ALT 20, Alkaline Phosphatase 142 H, Troponin I < 0.01, NT-Pro-B Natriuret Pep 39.2, Total Protein 7.7, Albumin 4.2, Globulin 3.5 H, Albumin/Globulin Ratio 1.2, HCV Ab ISAAK w/Rflx PCR Qn Negative, HIV Ag/Ab Combo Qual Negative 04/11/25 17:44: Troponin I < 0.01 Orders (Tests/Meds): ED MEDICATIONS Discontinued Medications Generic Name Dose Route Start Last Admin Trade Name Saeedq PRN Reason Stop Dose Admin Acetaminophen 1,000 mg 04/11/25 14:57 04/11/25 16:29 Acetaminophen 1,000mg/100ml Vial IV 04/11/25 14:58 1,000 mg ONCE ONE Administration Dexamethasone Sodium Phosphate 10 mg 04/11/25 14:56 04/11/25 16:25 Dexamethasone 4mg/Ml 1ml Vial IV 04/11/25 14:57 10 mg ONCE ONE Administration Diphenhydramine HCl 25 mg 04/11/25 14:56 04/11/25 16:23 Diphenhydramine 50mg/Ml Vial IV 04/11/25 14:57 25 mg ONCE ONE Administration Ceftriaxone Sodium 1 gm/ 50 mls @ 100 mls/hr 04/11/25 19:10 Sodium Chloride IV 04/11/25 19:39 ONCE ONE Iopamidol 80 ml 04/11/25 17:36 04/11/25 17:37 Iopamidol-370 (76%);100ml Bottle IV 04/11/25 17:37 80 ml ONCE ONE Administration Metoclopramide HCl 10 mg 04/11/25 14:56 04/11/25 16:21 Metoclopramide Hcl 10mg/2ml Vial IVP 04/11/25 14:57 10 mg ONCE ONE Administration Sodium Chloride 10 ml 04/11/25 17:36 04/11/25 17:37 Sodium Chloride 0.9% 10ml Syr (Rad Only) IV 04/11/25 17:37 10 ml ONCE ONE Administration Sodium Chloride 50 ml 04/11/25 17:36 04/11/25 17:37 0.9 % Sodium Chloride 50 Ml Vial IV 04/11/25 17:37 50 ml ONCE ONE Administration ORDERS Category Date Time Status CT angio head Stat Cat Scan 04/11/25 16:[address] angio neck Stat Cat Scan 04/11/25 16:[address] cervical spine wo con Stat Cat Scan 04/11/25 14:[address] head/brain wo con Stat Cat Scan 04/11/25 14:53 Completed XR chest portable Stat Exams 04/11/25 15:31 Completed Complete Blood Count Auto Diff Stat Lab 04/11/25 16:12 Completed Comprehensive Metabolic Panel Stat Lab 04/11/25 16:12 Completed HIV Combo Stat Lab 04/11/25 16:12 Completed Hepatitis C Ab Qual. W/ RFX Stat Lab 04/11/25 16:12 Completed Magnesium Stat Lab 04/11/25 16:12 Completed NT Pro Brain Natriuretic Pep. Stat Lab 04/11/25 16:12 Completed Troponin I Q3H Lab 04/11/25 17:44 Completed Troponin I Q3H Lab 04/11/25 20:45 Ordered Troponin I Stat Lab 04/11/25 16:12 Completed Medical Decision Narrative: 64-year-old female presents emergency department with presyncopal episode, nausea vomiting and left-sided headache, and visual disturbance, differential diagnose include but not limited to, migraine with aura, migraine without aura, tension headache, cervicogenic headache, cervicalgia, cervical spine fracture, cardiac arrhythmia, electrolyte disturbance, vasovagal syncope, genic syncope, situational syncope, orthostatic hypotension among others. I discussed patient case with attending physician Dr. Lainez Will obtain basic labs, proBNP, troponin, EKG,Magnesium level, orthostatics, EKG, will obtain CT reports without contrast, CT head without contrast, CXR, will give migraine cocktail with 1000 mg IV Tylenol, 10 mg IV dexamethasone, 25 mg IV Benadryl, and 10 mg IV Reglan for nausea. I reviewed the patient's CT cervical spine without contrast and with corresponding radiologic report, mild right neuroforaminal narrowing at C5-C6. Patient has leukocytosis of 17, as well as thrombocytosis of 443, leukocytosis appears somewhat chronic. I reviewed the patient's CT head without contrast along the corresponding radiologic report, no acute intracranial abnormality, dense calcification of the distal vertebral arteries bilaterally. Will obtain CTA head and neck with and without contrast for further evaluation of calcification of her vertebral arteries. Patient had positive orthostatic vital signs. I reviewed the patient's chest x-ray along with corresponding radiologic report, no acute cardiopulmonary process, stable chronic fibrosis. ALP is minimally elevated at 142, troponin is within normal limits at less than 0.01, proBNP within normal limits. Reexamination of the patient at approximately 6:25 PM, patient resting comfortably in bed, patient states her symptomatology as far as headache, pressure-like sensation, and presyncope, is improved. I reviewed the patient's CTA head and neck with and without contrast along with the corresponding radiologic reports, I did have an in-depth conversation about the radiology report and the radiologist spoke with me personally at approximately 6:44 PM, there is near occlusion versus occlusion of short segment of the proximal left [employer] SK[employer] SPECIALIST, this could correlate to the patient's symptomatology. 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 I discussed this patient's case with Ladonna Thompson APRN/stroke navigator [facility] at approximately 7:03 PM, she is agreement with current treatment plan/transfer plan for TIA/CVA with new findings of left-sided [employer] occlusion and right sided vertebral artery occlusion, in the setting of presyncopal episode versus cerebral hypoperfusion with left-sided visual disturbance. Patient was accepted by transfer physician on behalf of of the stroke team. Patient's NIH at the bedside is a 1, headache is improved, pressure-like sensation improved, no further presyncopal or syncopal event. I discussed the results with the patient and family the bedside patient family in agreement with current treatment plan/transfer plan. I will also treat patient for pneumonia and give 1 g IV ceftriaxone due to leukocytosis, which I do think is somewhat chronic, due to the patient's immunocompromise state, however patient does have interstitial lung disease putting her at high risk for pneumonia, and pneumonia was thought to be more likely on the patient's CT findings. Thus we will treat with antibiotic prophylaxis. I discussed this patient's case with the attending physician at shift change, he will be assuming the patient's care/time in the emergency department. Disposition is pending transfer to [facility] for TIA/higher level of care with neurology and neurosurgery. I was consulted by the SHELBY, and we discussed the complexity of the problems being addressed. I approve the treatment and management plan for this patient's care in the emergency department, thus performing a substantive portion of the medical decision making. At this time, patient's CTH without contrast and laboratory workup wa spending. [facility] Dr. Ospina, and [facility] [place]. See MDM above for final plan. Kam Lainez MD Critical Care <ARIEL Willams - Last Filed: 04/11/25 19:28> Critical Care Time Critical Care Time: No
--- OUTSIDE RECORDS SUMMARY | 2025-04-11 14:44 | XMS_ITS | Encounter Summary ---
Author Organization Healthcare Address [address] [place] [address] Care Team Providers Care Photography Editor Name Role Phone Eben Liu MD Primary Care Provider [phone] Encounter Details Date Type Department Care Team (Late st Contact Info) Description 12/25/2023 Orders Only External Location [address] [place] [address] Provider, External Social History Tobacco Use Types [...] Description 07/27/2025 9:00 AM EST Office Visit [facility] [address], [address] [place] [address] Kamini Fu, DO [address] [place] [address] 07/27/2025 11:15 AM EST Office Visit [facility] [address], [address] [place] [address] AnticBridget, DO [address] [place] [address] documented as of this encounter [...] documented as of this encounter Care Teams Photography Editor Relationship Specialty Start Date End Date Eben Liu MD [address] [place] [address] PCP - General Internal Medicine 12/19/23 documented as of this encounter
--- OUTSIDE RECORDS SUMMARY | 2025-04-11 14:44 | XMS_ITS ---
Author Organization [facility] Address [address] [place] [address] Care Team Providers Care Resin Mixer Name Role Phone Eben Liu MD Primary Care Provider [phone] Trans[address] Episode Lung Candidate [facility] ([place], [place]) - KYLEE Referred on 06/23/2024 Marked as Internal Hold on 07/21/2024 Reason: Patient Choice Lung CoordinatorJocelyne Yates Phone: N/A Fax: N/A Email: N/A Care Team Name Role Phone Fax Email Jocelyne Yates Lung Coordinator N/A N/A N/A Events Pre-Transplant Referred: 06/23/2024
--- OUTSIDE RECORDS SUMMARY | 2025-04-11 14:44 | XMS_ITS | Encounter Summary ---
Author Organization [facility] Address [address] [place] [address] Care Team Providers Care Product Marketing Programs Manager Name Role Phone Kwame Solomon MD Primary Care Provider [phone] Eben Lui MD Primary Care Provider [phone] Encounter Details Date Type Department Care Team (Late st Contact Info) Description 10/07/2022 Orders Only External Location [address] [place] [id number] Provider, External Social History Tobacco Use Types [...] Description 07/27/2025 9:00 AM EST Office Visit [facility] Medicine Specialties [address], [address] [place] [address] Kamini Fu, DO [address] [place] [address] 07/27/2025 11:15 AM EST Office Visit [facility] [address], [address] [place] [address] Bridget Bhat, DO [address] [place] [address] documented as of this encounter [...] documented as of this encounter Care Teams Product Marketing Programs Manager Relationship Specialty Start Date End Date Kwame Solomon MD [address] [facility] [address] [place] [id number] PCP - General 01/19/21 12/18/23 Eben Liu MD [address] [facility] [address] [place] [address] PCP - General Internal Medicine 12/19/23 documented as of this encounter
--- OUTSIDE RECORDS SUMMARY | 2025-04-11 14:44 | XMS_ITS | Encounter Summary ---
Author Organization Healthcare Address [address] [place] [address] Care Team Providers Care Utilization Coordinator Name Role Phone Eben Liu MD Primary Care Provider [phone] Encounter Details Date Type Department Care Team (Late st Contact Info) Description 01/19/2024 Orders Only External Location [address] [place] [address] Provider, External Social History Tobacco Use Types [...] Description 07/27/2025 9:00 AM EST Office Visit [facility] [address], [address] [place] [address] Kamini Fu, DO [address] [place] [address] 07/27/2025 11:15 AM EST Office Visit [facility] [address] [place] [address] AnticBridget, DO [address] [place] [address] documented as of this encounter [...] documented as of this encounter Care Teams Utilization Coordinator Relationship Specialty Start Date End Date Eben Liu MD [address] [place] [address] PCP - General Internal Medicine 12/19/23 documented as of this encounter
--- OUTSIDE RECORDS SUMMARY | 2025-04-11 14:45 | XMS_ITS | Encounter Summary ---
Author Organization Healthcare Address [address] [place] [address] Care Team Providers Care Channel Account Manager Name Role Phone Eben Liu MD Primary Care Provider [phone] Encounter Details Date Type Department Care Team (Late st Contact Info) Description 11/05/2024 Orders Only [place] [facility] [address], [address] [place] [address] Deysi Pandey, PharmD High risk [...] Description 07/27/2025 9:00 AM EST Office Visit [facility] [address], [address] [place] [address] Kamini Fu DO [address] [place] [address] 07/27/2025 11:15 AM EST Office Visit [facility] [address] [place] [address] Bridget Mccarthy DO [address] [place] [address] documented as of this encounter Visit Diagnoses Diagnosis High risk medication use- Primary documented in this encounter Additional Health Concerns Assessment Noted Time A fall risk assessment has been complete d for the patient 11/05/2024 9:46 AM EST A Body Mass Index follow-up plan has been documented for the patient 11/05/2024 10:25 AM EST documented as of this encounter Care Teams Channel Account Manager Relationship Specialty Start Date End Date Eben Liu MD [address] [place] [address] PCP - General Internal Medicine 12/19/23 documented as of this encounter
--- OUTSIDE RECORDS SUMMARY | 2025-04-11 14:45 | XMS_ITS | Encounter Summary ---
Author Organization Healthcare Address [address] [place] [address] Care Team Providers Care Grid Molder Name Role Phone Eben Liu MD Primary Care Provider [phone] Encounter Details Date Type Department Care Team (Late st Contact Info) Description 12/25/2023 Orders Only External Location [address] [place] [address] Provider, External Social History Tobacco Use Types [...] Description 07/27/2025 9:00 AM EST Office Visit [place] [facility] [address], [address] [place] [address] Kamini Fu, DO [address] [place] [address] 07/27/2025 11:15 AM EST Office Visit [facility] [address] [place] [address] AnticBridget, DO [address] [place] [address] documented as of this encounter [...] documented as of this encounter Care Teams Grid Molder Relationship Specialty Start Date End Date Eben Liu MD [address] [place] [address] PCP - General Internal Medicine 12/19/23 documented as of this encounter
--- OUTSIDE RECORDS SUMMARY | 2025-04-11 14:45 | XMS_ITS | Clinical Summary ---
Author Organization [facility] Address [address] [place] [address] Care Team Providers Care Assessment Director Name Role Phone Eben Liu MD Primary Care Provider [phone] Allergies Active Allergy Reactions Criticality Noted Date [...] Description 03/18/2025 9:45 AM EDT Office Visit [facility] [address], [address] [place] [address] Bridget Bhat DO ILD (interstitial lung disease) ([facility]/HCC) (Primary Dx); Rheumatoid arthritis involving multiple sites with positive rheumatoid factor ([facility]) 03/18/2025 Travel 01/26/2025 Orders Only [facility] Medicine [facility]ties [address], [address] [place] [address] ProviderLewis MD 01/20/2025 Telephone [facility] [address], [address] [place] [address] Todd Henning PharmD from Last 3 Months Immunizations Immunization Administration Dates Next Due Influenza, High-dose, Split Virus, Trivalent, Injectable, preservative free 06/23/2024,10/14/2018 Influenza, high-dose, quadrivalent 10/14/2018 Influenza, injectable, quadrivalent 05/07/2017 Influenza, injectable, quadrivalent, preservativ e free 07/02/2023,07/08/2019 Influenza, recombinant, quad rivalent, injectable, preservative free 07/14/2020 Pfizer-BioNTGoTunes COVID-19 Vac cine (Jack Cap) 12+ years [...] [facility] [address], [address] [place] [address] Kamini Fu DO [address] [place] [address] 07/27/2025 11:15 AM EST Office Visit [facility]ties [address], [address] [place] [address] Bridget Bhat DO [address] [place] [address] Health Maintenance Due Date Last Done Comments [facility]-Bone Density Scan 1958 [facility]-Medicare Annual Wellness (AWV) 1958 [facility]-/Child/Adol SDOH Screenings 1958 Diabetes: Dental Exam 1968 [facility]- SDOH Screenings 1976 [facility]-Adult SDOH Screenings 1976 CT Colonography 2003 Colonoscopy 2003 FIT-DNA 2003 FIT 2003 FOBT 2003 Sigmoidoscopy 2003 [facility]-Colorectal Cancer Screening 2003 [facility]-Breast Cancer Screening 2008 [facility]-Diabetes: Hemoglobin A1C 04/13/2019 10/14/2018 [id number] Vaccine (2 - Pfizer risk series) 04/24/2022 [...] 45(H) <30 mm/hr 2024 1:07 PM EDT [facility] Blood Venous blood specimen / Unknown Venipuncture / Unknown 03/18/2025 10:45 AM EDT 03/18/2025 10:46 AM EDT us Bridget Bhat DO LAB BLOOD ORDERABLES Final Resu lt [facility] [address] [place] [address] * (ABNORMAL) CBC and Differential (03/18/2025 10:45 AM EDT) Only the most recent of2 resultswithin the time period is included. WBC Count 20.11(H) 3.70 - 10.30 10*3/uL LAB HEMATOLOGY METHOD 03/18/2025 12:53 PM EDT [facility] RBC Count 4.70 3.90 - 5.20 10*6/uL LAB HEMATOLOGY METHOD 03/18/2025 12:53 PM EDT [facility] HGB 13.0 11.2 - 15.7 g/dL LAB HEMATOLOGY METHOD 03/18/2025 12:53 PM EDT [facility] HCT 41.8 34.0 - 45.0 % LAB HEMATOLOGY METHOD 03/18/2025 12:53 PM EDT [facility] Platelet Count 378(H) 155 - 369 10*3/uL LAB HEMATOLOGY METHOD 03/18/2025 12:53 PM EDT [facility] MCV 89 79 - 98 fL LAB HEMATOLOGY METHOD 03/18/2025 12:53 PM EDT [facility] MCH 27.7 26.0 - 32.0 pg LAB HEMATOLOGY METHOD 03/18/2025 12:53 PM EDT [facility] MCHC 31.1 30.7 - 35.5 g/dL LAB HEMATOLOGY METHOD 03/18/2025 12:53 PM EDT [facility] RDW 12.9 11.5 - 14.5 % LAB HEMATOLOGY METHOD 03/18/2025 12:53 PM EDT [facility] MPV 11.1 8.8 - 12.5 fL LAB HEMATOLOGY METHOD 03/18/2025 12:53 PM EDT [facility] nRBC 0.0 <=0.0 per 100 WBCs LAB HEMATOLOGY METHOD 03/18/2025 12:53 PM EDT [facility] Differential Type Automated LAB HEMATOLOGY METHOD 03/18/2025 12:53 PM EDT [facility] Neutrophils % 65 % LAB HEMATOLOGY METHOD 03/18/2025 12:53 PM EDT [facility] Lymphocytes % 21 % LAB HEMATOLOGY METHOD 03/18/2025 12:53 PM EDT [facility] Monocytes % 9 % LAB HEMATOLOGY METHOD 03/18/2025 12:53 PM EDT [facility] Eosinophils % 3 % LAB HEMATOLOGY METHOD 03/18/2025 12:53 PM EDT [facility] Basophils % 1 % LAB HEMATOLOGY METHOD 03/18/2025 12:53 PM EDT [facility] Immature Granulocytes % 1 % LAB HEMATOLOGY METHOD 03/18/2025 12:53 PM EDT [facility] Neutrophils Absolute 13.37(H) 1.60 - 6.10 10*3/uL LAB HEMATOLOGY METHOD 03/18/2025 12:53 PM EDT [facility] Lymphocytes Absolute 4.17(H) 1.20 - 3.90 10*3/uL LAB HEMATOLOGY METHOD 03/18/2025 12:53 PM EDT [facility] Monocytes Absolute 1.71(H) 0.30 - 0.90 10*3/uL LAB HEMATOLOGY METHOD 03/18/2025 12:53 PM EDT [facility] Eosinophils Absolute 0.65(H) 0.00 - 0.50 10*3/uL LAB HEMATOLOGY METHOD 03/18/2025 12:53 PM EDT [facility] Basophils Absolute 0.10 0.00 - 0.10 10*3/uL LAB HEMATOLOGY METHOD 03/18/2025 12:53 PM EDT [facility] Immature Granulocytes Absolute 0.11(H) 0.00 - 0.06 10*3/uL LAB HEMATOLOGY METHOD 03/18/2025 12:53 PM EDT [facility] Blood Venous blood specimen / Unknown Venipuncture / Unknown 03/18/2025 10:45 AM EDT 03/18/2025 10:46 AM EDT [facility] - 03/18/2025 12:53 PM EDT Therapeutic decision making should be based on absolute values, rather than percentages. us Bridget Antic DO LAB BLOOD ORDERABLES Final Resu lt [facility] [address] [place] [address] * (ABNORMAL) C-Reactive Protein, Plasma (03/18/2025 10:45 AM EDT) CRP, Plasma 11.4(H) <=8.0 mg/L 03/18/2025 12:54 PM EDT [facility] Blood Venous blood specimen / Unknown Venipuncture / Unknown 03/18/2025 10:45 AM EDT 03/18/2025 10:46 AM EDT Narrative [facility] - 03/18/2025 12:54 PM EDT This CRP test is appropriate for assessment of infection, systemic inflammation and/or tissue injury. To assess cardiovascular disease risk order high sensitivity CRP (CRPH). Bridget Bhat DO LAB BLOOD ORDERABLES Final Resu lt [facility] [address] [place] [address] * (ABNORMAL) Comprehensive Metabolic Panel, Plasma (03/18/2025 10:45 AM EDT) Glucose, Plasma 156(H) 74 - 99 mg/dL 03/18/2025 12:54 PM EDT [facility] BUN, Plasma 11 8 - 23 mg/dL 03/18/2025 12:54 PM EDT [facility] Creatinine, Plasma 0.61 0.60 - 1.10 mg/dL 03/18/2025 12:54 PM EDT [facility] BUN/Creatinine Ratio 18 03/18/2025 12:54 PM EDT [facility] Sodium, Plasma 138 136 - 145 mmol/L 03/18/2025 12:54 PM EDT [facility] Potassium, Plasma 4.4 3.6 - 4.9 mmol/L 03/18/2025 12:54 PM EDT [facility] Chloride, Plasma 100 97 - 107 mmol/L 03/18/2025 12:54 PM EDT [facility] CO2, Plasma 26 22 - 29 mmol/L 03/18/2025 12:54 PM EDT [facility] Anion Gap 12 6 - 16 mmol/L 03/18/2025 12:54 PM EDT [facility] Total Calcium, Plasma 9.6 8.9 - 10.2 mg/dL 03/18/2025 12:54 PM EDT [facility] Total Protein 7.2 6.3 - 7.9 g/dL 03/18/2025 12:54 PM EDT [facility] Albumin, Plasma 3.8 3.5 - 5.2 g/dL 03/18/2025 12:54 PM EDT [facility] AST, Plasma 22 10 - 35 U/L 03/18/2025 12:54 PM EDT [facility] ALT, Plasma 20 10 - 35 U/L 03/18/2025 12:54 PM EDT [facility] Alkaline Phosphatase, Plasma 113 46 - 142 U/L 03/18/2025 12:54 PM EDT [facility] Total Bilirubin, Plasma 0.4 0.2 - 1.1 mg/dL 03/18/2025 12:54 PM EDT [facility] eGFRcr 98.7 mL/min/1.7 3m*2 03/18/2025 12:54 PM EDT [facility] Comment:Reported eGFRcr in m L/min/1.73m2 is based the CKD-EPI 2020 equation that does not use a race coefficient. Blood Venous blood specimen / Unknown Venipuncture / Unknown 03/18/2025 10:45 AM EDT 03/18/2025 10:46 AM EDT Bridget Bhat DO LAB BLOOD ORDERABLES Final Resu lt [facility] [address] [place] [address] * Immunoglobulin G Subclass 4 (SO) (01/26/2025 [...] <6.0% Children and Adolescents <7.5% . Source: [place] [employer]. Standards of medical care in diabetes, 2017. Diabetes Care.2017:40 (suppl 1):S1-S135. . HbA1c assay performed by an ion-exchange chromatography method that is certified traceable to the DCCT. 10/14/2018 12:2 8 PM EST 10/14/2018 3:45 PM EST Historical Provider LAB BLOOD ORDERABLES Ciera l Result SUNQUEST from Last 3 Months or Most Recently Relevant to Health Maintenance Insurance MEDICARE MEDICARE Care Teams Assessment Director Relationship Specialty Start Date End Date Eben Liu MD [address] [place] [address] PCP - General Internal Medicine 12/19/23
--- OUTSIDE RECORDS SUMMARY | 2025-04-11 14:45 | XMS_ITS | Encounter Summary ---
Author Organization Healthcare Address [address] [place] [address] Care Team Providers Care Coating Machine Operator Helper Name Role Phone Eben Liu MD Primary Care Provider [phone] Encounter Details Date Type Department Care Team [...] Description 07/27/2025 9:00 AM EST Office Visit [facility] Medicine Specialties [address], [address] [place] [address] Kamini Fu, DO [address] [place] [address] 07/27/2025 11:15 AM EST Office Visit [facility] [address], [address] [place] [address] Bridget Bhat, DO [address] [place] [address] documented as of this encounter Visit Diagnoses Not on filedocumented in this encounter Additional Health Concerns Assessment Noted Time A fall risk assessment has been complete d for the patient 03/18/2025 9:35 AM EDT A Body Mass Index follow-up plan has been documented for the patient 03/18/2025 10:34 AM EDT documented as of this encounter Care Teams Coating Machine Operator Helper Relationship Specialty Start Date End Date Eben Liu MD [address] [place] [address] PCP - General Internal Medicine 12/19/23 documented as of this encounter
--- NOTE | 2025-04-11 14:53 | CT_ITS ---
FINAL REPORT TECHNIQUE: Axial images were obtained of the cervical spine by computed tomography. Coronal and sagittal reconstruction process performed. This study was performed with techniques to keep radiation doses as low as reasonably achievable (ALARA). Individualized dose reduction techniques using automated exposure control or adjustment of mA and/or kV according to the patient's size were employed. CLINICAL HISTORY: Left-sided neck pain COMPARISON: 08/16/2018 FINDINGS: There is moderate disc space narrowing at C5-6. The vertebrae have normal height. There is no malalignment. The facets are properly aligned. C2-3: Unremarkable C3-4: Unremarkable C4-5: Unremarkable C5-6: Mild diffuse disc bulge. Endplate hypertrophy eccentric to the right. Mild right neural foraminal narrowing. C6-7: Unremarkable C7-T1: Unremarkable IMPRESSION: Mild right neural foraminal narrowing at C5-6. Reviewed, Interpreted and Dictated by Jonny Hairston MD Transcribed by Karyn Valdez Authenticated and . [facility]
--- NOTE | 2025-04-11 14:53 | CT_ITS ---
FINAL REPORT TECHNIQUE: Axial CT images were performed through the head. Coronal reformatted images were submitted. This study was performed with techniques to keep radiation doses as low as reasonably achievable (ALARA). Individualized dose reduction techniques using automated exposure control or adjustment of mA and/or kV according to the patient's size were employed. CLINICAL HISTORY: Left-sided temporal headache, blurry [place] COMPARISON: 08/16/2018 FINDINGS: The ventricles are normal in size. There is no evidence of hemorrhage. There is no mass or edema identified. There is no abnormal extra-axial fluid seen. There is dense calcification in the distal vertebral arteries bilaterally. The paranasal sinuses are well aerated. IMPRESSION: No acute intracranial abnormality. Dense calcification in the distal vertebral arteries bilaterally. Reviewed, Interpreted and Dictated by Jonny Hairston MD Transcribed by Karyn Valdez Authenticated and [facility]
--- NOTE | 2025-04-11 15:31 | XR_ITS ---
FINAL REPORT CLINICAL HISTORY: Shortness of air, hx of interstitial lung dx COMPARISON: 08/27/2024 FINDINGS: The heart size is normal. The mediastinum is normal. The lungs are underinflated. There are coarse interstitial opacities bilaterally probably due to chronic fibrosis and similar to the prior exam. There are no pleural effusions. There is no pneumothorax. There is no osseous abnormality. IMPRESSION: No acute cardiopulmonary process. Stable chronic fibrosis. Reviewed, Interpreted and Dictated by Jonny Hairston MD Transcribed by Park Duggan Authenticated and [facility]
--- NOTE | 2025-04-11 15:43 | ECG_ITS ---
APPROVED REPORT Exam: Resting ECG HR:81 bpm ECG Measurements Heart Rate 81 AXES AZ 207 P 47 QRSd 85 QRS -12 QT 373 T 45 QTc 410 Conclusion SINUS RHYTHM POSSIBLE LEFT ATRIAL ENLARGEMENT [-0.1mV P-WAVE IN V1/V2] LOW QRS VOLTAGE IN PRECORDIAL LEADS [QRS DEFLECTION < 1.0 mV IN CHEST LEADS] BORDERLINE ECG UNCONFIRMED REPORT Electronically signed by : CHERYLE JEFFERY, 04/12/2025 04:19:21
[2025-04-11 16:19] LABS: Hematocrit 43.1 % (37.0-47.0); Hemoglobin 13.4 g/dL (12.2-16.2); Immature Granulocytes % 0.5 %; Mean Corpuscular HGB Conc 31.1 g/dL (31.8-35.4); Mean Corpuscular Hemoglobin 27.5 pg (27.0-31.2); Mean Corpuscular Volume 88.3 fl (81-99); Nucleated Red Blood Cells % 0 %; Platelet Count 443 K/mm3 (142-424); Red Blood Count 4.88 M/mm3 (4.20-5.40); Red Cell Distribution Width-SD 40.6 fL; White Blood Count 17.0 K/mm3 (4.8-10.8)
[2025-04-11] MEDS: METOCLOPRAMIDE HCL 10MG/2ML VIAL 10 MG IVP (16:21)
[2025-04-11] MEDS: DEXAMETHASONE 4MG/ML 1ML VIAL 10 MG IV (16:25)
[2025-04-11] MEDS: ACETAMINOPHEN 1,000MG/100ML VIAL 1000 MG IV (16:29)
--- NOTE | 2025-04-11 16:37 | CT_ITS ---
PROCEDURE INFORMATION: Exam: CTA Neck With Contrast Exam date and time: 04/11/2025 5:29 PM Age: 64 years old Clinical indication: Other: Lft MANLEY, lft visual disturbance, presyncope TECHNIQUE: Imaging protocol: Computed tomographic angiography of the neck with contrast. Exam focused on the cervical segments of the vasculature. 3D rendering (Not supervised by radiologist): MIP and/or 3D reconstructed images were created by the technologist. Radiation optimization: All CT scans at this facility use at least one of these dose optimization techniques: automated exposure control; mA and/or kV adjustment per patient size (includes targeted exams where dose is matched to clinical indication); or iterative reconstruction. Contrast material: ISOVUE; Contrast volume: 80 ml; Contrast route: INTRAVENOUS (IV); COMPARISON: CT CERVICAL SPINE WO CON 04/11/2025 3:20 PM FINDINGS: Right common carotid artery: Mild atherosclerotic changes of the right carotid bifurcation with 5% stenosis of the internal carotid artery per NASCET criteria. Right internal carotid artery: No stenosis of the extracranial segment. No dissection or occlusion. Right external carotid artery: No occlusion or stenosis of the origin. Left common carotid artery: Mild atherosclerotic changes of the left carotid bifurcation with 0% stenosis of the internal carotid artery per NASCET criteria. Left internal carotid artery: No stenosis of the extracranial segment. No dissection or occlusion. Left external carotid artery: No occlusion or stenosis of the origin. 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 Left vertebral artery: No stenosis. No dissection or occlusion. Left subclavian artery: [id number] stenosis of the proximal left subclavian artery. Soft tissues: Normal. No significant soft tissue swelling. Bones/joints: No acute fracture. Lungs: Widespread ground-glass airspace disease. IMPRESSION: 1. 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 This is age indeterminate. 2. Widespread ground-glass airspace disease. This is most likely atypical pneumonia. Chronic fibrotic changes are less likely REFERENCES: NASCET CRITERIA. The degree of stenosis in the cervical segment of the internal carotid artery is based on NASCET criteria. Normal is no stenosis. Mild is less than 50% stenosis. Moderate is 50-69% stenosis. Severe is 70% to 99% stenosis. Total occlusion is no detectable patent lumen.
--- NOTE | 2025-04-11 16:37 | CT_ITS ---
PROCEDURE INFORMATION: Exam: CTA Head With Contrast, Arteriography Exam date and time: 04/11/2025 5:29 PM Age: 64 years old Clinical indication: Other: Lft MANLEY, lft visual disturbance, presyncope TECHNIQUE: Imaging protocol: Computed tomographic angiography of the head with contrast. Exam focused on the arteries. 3D rendering (Not supervised by radiologist): MIP and/or 3D reconstructed images were created by the technologist. Radiation optimization: All CT scans at this facility use at least one of these dose optimization techniques: automated exposure control; mA and/or kV adjustment per patient size (includes targeted exams where dose is matched to clinical indication); or iterative reconstruction. Contrast material: ISOVUE; Contrast volume: 80 ml; Contrast route: INTRAVENOUS (IV); COMPARISON: CT HEAD/BRAIN WO CON 04/11/2025 3:17 PM FINDINGS: ANTERIOR CIRCULATION: Right internal carotid artery: Intracranial segment is patent with no significant stenosis. No aneurysm. Right middle cerebral artery: No occlusion or significant stenosis. No aneurysm. Right anterior cerebral artery: No occlusion or significant stenosis. No aneurysm. Left internal carotid artery: Intracranial segment is patent with no significant stenosis. No aneurysm. Left middle cerebral artery: No occlusion or significant stenosis. No aneurysm. Left anterior cerebral artery: No occlusion or significant stenosis. No aneurysm. POSTERIOR CIRCULATION: Right vertebral artery: No occlusion or significant stenosis. No aneurysm. Left vertebral artery: No occlusion or significant stenosis. No aneurysm. Basilar artery: No occlusion or significant stenosis. No aneurysm. Right posterior cerebral artery: Near configuration of the right RETAIL [employer]ET MERCHANDISER. Left posterior cerebral artery: Near occlusion versus occlusion of a short segment of proximal left RETAIL RESET MERCHANDISER. Brain: No definite mass, mass effect, or midline shift. Mild chronic brain volume loss and chronic small vessel ischemic changes. Cerebral ventricles: No ventriculomegaly. Bones/joints: Unremarkable. No acute fracture. Soft tissues: Unremarkable. IMPRESSION: Near occlusion versus occlusion of a short segment of proximal left RETAIL RESET MERCHANDISER. This could correlate with the patient's symptoms.
[2025-04-11 16:45] LABS: Alanine Aminotransferase 20 U/L (12-78); Albumin Level 4.2 g/dl (3.5-5.0); Albumin/Globulin Ratio 1.2 (1.1-1.8); Alkaline Phosphatase 142 U/L (38-126); Anion Gap 10.0 mEq/L (5-15); Aspartate Amino Transferase 26 U/L (14-36); Bilirubin,Total 0.3 mg/dl (0.2-1.3); Blood Urea Nitrogen 12 mg/dl (7-17); Calcium 9.9 mg/dl (8.4-10.2); Carbon Dioxide 31 mmol/L (22.0-30.0); Chloride 100 mmol/L (98-107); Creatinine Clearance Estimated 74 mL/min (50-200); Creatinine,Serum 0.70 mg/dl (0.52-1.04); Estimated Glomerular Filt Rate 84 ml/min (>60); GFR (African American) 101 ML/MIN (>60); Globulin 3.5 g/dL (1.3-3.2); Glucose 160 mg/dl (74-100); Potassium 4.0 mmoL/L (3.5-5.1); Sodium 137 mmol/L (136-145); Total Protein,Serum 7.7 g/dl (6.3-8.2)
[2025-04-11 16:46] LABS: Magnesium 1.5 mg/dl (1.6-2.3)
[2025-04-11 16:59] LABS: NT Pro Brain Natriuretic Pep. 39.2 pg/mL (0-125)
[2025-04-11 17:10] LABS: Troponin I < 0.01 ng/ml (0.00-0.034)
[2025-04-11 17:32] LABS: Hepatitis C Ab Qual. W/ RFX NEGATIVE (Negative)
[2025-04-11] MEDS: 0.9 % SODIUM CHLORIDE 50 ML VIAL IV (17:37)
[2025-04-11] MEDS: SODIUM CHLORIDE 0.9% 10ML SYR (RAD ONLY) 10 ML IV (17:37)
[2025-04-11] MEDS: IOPAMIDOL-370 (76%);100ML BOTTLE 80 ML IV (17:37)
--- NOTE | 2025-04-11 18:42 | PC.NURSE ---
ARIEL Park on phone with [facility] at this time
[2025-04-11 18:55] LABS: Troponin I < 0.01 ng/ml (0.00-0.034)
--- NOTE | 2025-04-11 19:30 | PC.NURSE ---
Called [facility] to talk to Stroke navigator 19:00
--- NOTE | 2025-04-11 19:42 | PC.NURSE ---
rounded on pt. pt voices no needs. at bedside. call light in reach. VSS
--- NOTE | 2025-04-11 20:23 | PC.NURSE ---
report called to Karley MOLINA at [facility]
[2025-04-11] MEDS: KETOROLAC 30MG/ML VIAL 15 MG IV (22:56)
[2025-04-12] VITALS: BP 171/86; PULSE 84; RESP 20; O2SAT 100
[2025-04-12 00:31] VITALS: BP 153/86; PULSE 89; RESP 24; O2SAT 100
[2025-04-12 01:25] VITALS: BP 153/86; PULSE 85; RESP 17; TEMP 36.6; O2SAT 100
== END 2025-04-12 01:26 | disposition other institution (70) ==
PROVIDERS: Physician Assistant; Emergency Provider Student in an Organized Health Care Education/Training Program; PCP Internal Medicine Adolescent Medicine
DX: R55 Syncope and collapse (principal); I67.2 Cerebral atherosclerosis; H53.9 Unspecified visual disturbance; E78.5 Hyperlipidemia, unspecified; I10 Essential (primary) hypertension
CPT/HCPCS: 70450; 70496; 70498; 71045; 72125; 80053; 83735; 83880; 84484; 85025; 86803; 87389; 93005; 96374; 96375; 99285; J0131; J1100; J1200; J1885; J2765; Q9967

== ENCOUNTER 2025-05-23 15:42 | Outpatient (CLI) | payer MEDICARE, SELFPAY ==
--- OUTSIDE RECORDS SUMMARY | 2025-04-12 02:43 | XMS_ITS | Encounter Summary ---
Author Organization [facility] Address [address] [place] [address] Care Team Providers Care Doctor Of Veterinary Medicine Name Role Phone Eben Liu MD Primary Care Provider [phone] Reason for Referral * Consultation (Routine) - Closed Specialty Diagnoses / Procedures Referred By Contac t Referred To Contact Cardiology Diagnoses Transient neurologic deficit Transient neurological symptoms Procedures HI OFFICE/OUTPATIENT NEW MODERATE MDM 45 MINUTES Vee León APRN [address] [facility] [address] [place] [address] Phone: tel: fax: [facility] [address] [facility] [address] [place] [address] Phone: tel: fax: Referral ID Status Reason Start Date Expiration Date V isits Requested Visits Authorized Closed Specialty Services Required 04/14/2025 07/14/2026 1 1 * Consultation (Routine) - Authorized Specialty Diagnoses / Procedures Referred By Contac t Referred To Contact Neurology Diagnoses Transient neurologic deficit Procedures HI OFFICE/OUTPATIENT NEW MODERATE MDM 45 MINUTES Angy Dc APRN [address] [facility] [address] [address] Phone: tel: fax: Margarita Blanc APRN [address] [place] [address] Phone: tel: fax: Referral ID Status Reason Start Date Expiration Date Visits Requested Visits Authorized [id number] Authorized Specialty Services Required 04/13/2025 07/13/2026 1 1 * MRI/CAT/PET Scan (Routine) - Pending Review Specialty Diagnoses / Procedures Referred By Contac t Referred To Contact Procedures CT Outside Spine Films, Radiant Outside Referral ID Status Reason Start Date Expiration Date V isits Requested Visits Authorized Pending Review 04/12/2025 07/12/2026 1 1 * MRI/CAT/PET Scan (Routine) - Pending Review Specialty Diagnoses / Procedures Referred By Contac t Referred To Contact Procedures CT Outside Neck Films, Radiant Outside Referral ID Status Reason Start Date Expiration Date V isits Requested Visits Authorized Pending Review 04/12/2025 07/12/2026 1 1 * MRI/CAT/PET Scan (Routine) - Pending Review Specialty Diagnoses / Procedures Referred By Contac t Referred To Contact Procedures CT Outside Head Films, Radiant Outside Referral ID Status Reason Start Date Expiration Date V isits Requested Visits Authorized Pending Review 04/12/2025 07/12/2026 1 1 * MRI/CAT/PET Scan (Routine) - Pending Review Specialty Diagnoses / Procedures Referred By Contac t Referred To Contact Procedures CT Outside Head Films, Radiant Outside Referral ID Status Reason Start Date Expiration Date V isits Requested Visits Authorized Pending Review 04/12/2025 07/12/2026 1 1 Reason for Visit * Auth/Cert Specialty Diagnoses / Procedures Referred By Contac t Referred To Contact Diagnoses Cerebrovascular Accident Syncope Referral ID Status Reason Start Date Expiration Date Visits Re quested Visits Authorized [id number] 1 1 Encounter Details Date Type Department Care Team (Late st Contact Info) Description 04/12/2025 2:43 AM EDT - 04/14/2025 4:11 PM EDT Hospital Encounter [address] [place] [id number] Kurt Yoo MD [address] [facility] [address] [place], [place] [id number] Shakira Barney MD [address] [facility] [address] [place], [place] [id number] Tevin Lees MD [address] [place], [place] [id number] Cerebrovascular accident (CVA), unspecified mechanism (Primary Dx); Transient neurologic deficit; Type 2 diabetes mellitus with hyperglycemia, with long-term current use of insulin; Transient neurological symptoms; Syncope and collapse Discharge Disposition: Home or Self Care Social History Tobacco Use Types Packs/Day Years Used Date Smoking Tobacco: Former Cigarettes 2 24 1 978 - 2001 Smokeless Tobacco: Never Tobacco Cessation:Counseling Given: Not Answered Alcohol Use Standard Drinks/Week Comments Never 0 (1 standard drink = 0.6 oz pur e alcohol) AUDIT-C Answer Date Recorded Q1: How often do you have a drink containing alcohol? Never 04/12/2025 Q2: How many drinks containi ng alcohol do you have on a typical day when you are drinking? Patient does not drink Q3: How often do you have si x or more drinks on one occasion? Never 04/12/2025 Abuse Screen Answer Date Recorded Feels Unsafe at Home or Work/School no 04/12/2025 Feels Threatened by Someone no 01/2025 Does Anyone Try to Keep You From Having Contact with Others or Doing Things Outside Your Home? no 04/12/2025 Physical Signs of Abuse Present no 04/12/2025 Housing Stability Answer Date Recorded Current Living Arrangements home 01/2025 Potentially Unsafe Housing Conditions Not on ekaterina e 04/12/2025 Disabilities Answer Date Recorded Difficulty Concentrating, Remembering or Making Decisions no 04/12/2025 Difficulty Managing Errands Independently no 04/12/2025 Comments No Sex and Gender Information Value Date Recorded Sex Assigned at Not on file Legal Sex Female 7:39 PM EDT Gender Identity Not on file Sexual Orientation Not on file documented as of this encounter Last Filed Vital Signs Vital Sign Reading Time Taken Comments Blood Pressure 111/68 04/14/2025 11:11 AM EDT Pulse 78 04/14/2025 2:00 PM EDT Temperature 36.4 C (97.5 F) 04/14/2025 11:11 AM EDT Respiratory Rate 16 04/14/2025 12:30 PM EDT Oxygen Saturation 97% 04/14/2025 2:00 PM EDT Inhaled Oxygen Concentration - - Weight 85.3 kg (188 lb 0.8 oz) 04/12/2025 7:54 A M EDT Height 160 cm (5' 2.99 ) 04/12/2025 7:54 AM EDT Body Mass Index 33.32 04/12/2025 7:54 AM EDT documented in this encounter Functional Status * Question Answer Date of Assessment Author 1. Wish to be (Past 1 Month) No 025 3:20 AM EDT Karley Goodwin RN 2. Non-Specific Active Suici lexus Thoughts (Past 1 Month) No 04/12/2025 3:20 AM EDT Alhaji Goodwin RN * Calculated C-SSRS Risk Score (Lifetime/Recent) Answer Date of Assessment Author No Risk Indicated 04/12/2025 3:20 AM EDT Karley Goodwin RN * [place] Suicide Severity Rating Scale (Screener/Recent Self-Report) Question Answer Date of Assessment Author 6. Suicidal Behavior (Lifetime) No 3:20 AM EDT Karley Goodwin RN documented as of this encounter Discharge Summaries * Vee León APRN - 04/14/2025 11:50 AM EDT Images from the original note were not included. [facility] Medicine Services DISCHARGE SUMMARY Patient Name: Karyn Sanz : 1960 Date of Admission: 04/12/2025 2:43 AM Date of Discharge: 04/14/2025 Primary Care Physician: Eben Liu MD Consults Date and Time Order Name Status Description 04/13/2025 8:55 AM Inpatient Cardiology Consult Completed 04/12/2025 3:47 AM Inpatient Palliative Care MD Consult Completed 04/12/2025 3:29 AM Inpatient Pulmonology Consult Completed 04/12/2025 3:29 AM Inpatient Neurology Consult Stroke Hospital Course Presenting Problem: Dizziness with fall after getting up too quickly , headache with vomiting, stiff neck for days Active Hospital Problems Diagnosis POA ??? Transient neurological symptoms [R29.818] Unknown ??? Chronic respiratory failure with hypoxia [J96.11] Yes ??? Primary hypertension [I10] Yes ??? Type 2 diabetes mellitus, with long-term current use of insulin [E11.9, Z79.4] Not Applicable Resolved Hospital Problems Diagnosis Date Resolved POA ??? Stroke [I63.9] 04/13/2025 Yes Hospital Course: Karyn Sanz is a 64 y.o. 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 Tylenol and IV morphine PRN - A1C 7.57 Total chol 159 HDL 48 LDL 100 -- Checked bilateral carotid/vertebral artery duplex today. Impression: Right internal carotid artery demonstrates a less than 50% stenosis. Follow-up primary agricultural researcher. ??? Antegrade right vertebral flow. ??? Left internal carotid artery demonstrates a less than 50% stenosis. ??? Antegrade left vertebral flow. - stroke neuro following. Recs asa and change plavix to Brilinta (d/t plavix nonresponder, P2Y12 215) x 21 days, then Brilinta only indefinite. Increased lipitor to 80mg. Normotension - f/u stroke clinic in 6-8 weeks. Home on medications as above. HTN - normotensive goals per neuro -Home meds Chronic hypoxic respiratory failure // history of RA-ILD on home oxygen 24/7: 2L nc at rest & 4L nc with exertion, ANDRES intermittent compliance with CPAP therapy. Patient previously referred to lung transplantation clinic. +Rhinovirus Possible CAP Chronic leukocytosis (slightly elevated from baseline but afebrile. Continue antibiotics.) - Continue supplemental oxygen at dose 3 L to maintain O2 sat greater than 94% - Resume home dose inhalers: [id number] + albuterol nebulization [id number] - Recommend 6-minute walk prior to hospital discharge - resume CPAP at night; titrate per RT protocol to maintain O2 sat greater than 94% with sleeping. Long discussion with patient today. Have encouraged continued use as much as possible. She verbalized understanding. - seen by pulmonary. Follow-up with her primary limo driver outpatient as scheduled. Continue home oxygen. -Home medications: Currently on Rituximab every 4 months (2 g, RA dosing) + Myfortic 720 mg BID - palliative care met with patient and decided for DNR, palliative care signed off - on abx for possible CAP. Denies cough/soa. Pulmonary following thinks may be at baseline. OrderedCTA chest which showed no PE, nonspecific interstitial lung changes with a degree of fibrosis most pronounced at the bases - seen by cardiology d/t advanced atherosclerosis. Recs improved LDL control, recs needs screening for LP (a) if not done before. Recs to consider Carotid duplex to assess vertebrals/will order. Recsconsider outpatient event monitor with primary agricultural researcher. --Will place an event recorder prior to discharge with follow-up with heart valve center and her primary agricultural researcher in [place] in 3-4 weeks. T2DM / insulin-dependent - Insulin sliding scale per hospitalization protocol // patient hyperglycemic on admission fingerstick 333 - Resume home dose basal insulin: Lantus 40 units every morning - A1c 7.57 - Inpatient nutrition consult and inpatient chemical educator consult. --Continue home regimen at discharge. Follow-up PCP. Leukocytosis / elevated lactate 2.6 - looks to be chronic, can see 17-20K wbc as far back as 2020 -UA ok. Follow cultures -CXR shows scattered interstitial coarsening with interspersed airspace opacities could reflect pnawith possible component underlying - s/p Gentle IV fluid hydration -Patient is immunocompromise due to her RA and ILD, therefore continue doxy for CAP to complete course. Pulmonary follow-up as above. Patient was seen resting up in the chair no acute distress. Awake and alert. Hemodynamically stableand afebrile. Underwent bilateral carotid/vertebral artery duplex. Awaiting results for planned discharge home today. Addendum: 1300 p.m. Carotid/vertebral artery duplex resulted. No significant stenosis. See above. Feels good. Cleared for discharge home by all services. Going with cardiac event recorder in place and close follow-up asbelow. Discharge Follow Up Recommendations for outpatient labs/diagnostics: Patient is cleared for discharge home today by all services. Going on medications as below with follow-up as noted. -- Follow-up PCP 1 week of discharge -- Follow-up with your primary limo driver as per scheduled -- Follow-up with [facility] in stroke clinic in 6-8 weeks -- Follow-up with her primary agricultural researcher, Dr. Valencia in [place] in 3-4 weeks. --Note--cardiac event recorder placed prior to discharge. Follow-up primary agricultural researcher Day of Discharge HPI: Patient was seen sitting up in the chair in no acute distress. Awake and alert. States she feels better. No current headache. Vision changes almost resolved. Chronic neck pain. No acute pain. Awaiting final results of bilateral carotid and vertebral artery duplex prior to discharge today. Review of Systems Gen- No fevers, chills CV- No chest pain, palpitations Resp- No cough, dyspnea GI- No N/V/D, abd pain Vital Signs: Temp: [97.5 ??F (36.4 ??C)-98.1 ??F (36.7 ??C)] 97.5 ??F (36.4 ??C) Heart Rate: [73-94] 84 Resp: [16-18] 16 BP: (111-133)/(60-74) 111/68 Flow (L/min) (Oxygen Therapy): [2] 2 Physical Exam: Constitutional: No acute distress, awake, alert. Resting up in the chair. No visitors at bedside. HENT: NCAT, mucous membranes moist Respiratory: Clear to auscultation bilaterally, respiratory effort normal on chronic 2 LNC. Sats WNL. Cardiovascular: RRR, no murmurs, rubs, or gallops Gastrointestinal: Positive bowel sounds, soft, nontender, nondistended. Obese. Musculoskeletal: No bilateral ankle edema. Cleary spontaneously. Psychiatric: Appropriate affect, cooperative Neurologic: Oriented x 3, nonfocal, speech clear and appropriate. Follows commands. Skin: No rashes Pertinent and/or Most Recent Results LAB RESULTS: Lab 04/13/25 0821 04/12/25 1412 04/12/25 1122 04/12/25 0904 04/12/25 0454 WBC 22.49* -- -- -- 20.49* HEMOGLOBIN 11.8* -- -- -- 13.1 HEMATOCRIT 36.9 -- -- -- 42.1 PLATELETS 385 -- -- -- 418 NEUTROS ABS -- -- -- -- 17.18* IMMATURE GRANS (ABS) -- -- -- -- 0.11* LYMPHS ABS -- -- -- -- 2.57 MONOS ABS -- -- -- -- 0.59 EOS ABS -- -- -- -- 0.00 MCV 88.5 -- -- -- 90.5 LACTATE -- 2.5* 3.4* 3.4* 2.6* PROTIME -- -- -- -- 14.1 Lab 04/13/25 0821 04/12/25 1748 04/12/25 0904 04/12/25 0454 SODIUM 140 -- -- 130* POTASSIUM 4.3 -- -- 3.9 CHLORIDE 104 -- -- 95* CO2 23.0 -- -- 22.0 ANION GAP 13.0 -- -- 13.0 BUN 12.0 -- -- 9.7 CREATININE 0.58 -- -- 0.59 EGFR 99.9 -- -- 99.5 GLUCOSE 84 -- -- 265* CALCIUM 8.5* -- -- 9.3 MAGNESIUM -- 2.2 1.6 1.7 PHOSPHORUS -- -- -- 2.3* HEMOGLOBIN A1C -- -- -- 7.57* Lab 04/12/25 0454 TOTAL PROTEIN 6.9 ALBUMIN 3.5 GLOBULIN 3.4 ALT (SGPT) 13 AST (SGOT) 13 BILIRUBIN 0.3 ALK PHOS 128* Lab 04/13/25 0821 04/12/25 0904 04/12/25 0454 PROBNP 170.9 -- -- HSTROP T -- <6 <6 PROTIME -- -- 14.1 INR -- -- 1.02 Lab 04/12/25 0454 CHOLESTEROL 159 LDL CHOL 100 HDL CHOL 48 TRIGLYCERIDES 55 Lab 04/12/25 0428 PH, ARTERIAL 7.404 PCO2, ARTERIAL 42.1 PO2 ART 147.0* FIO2 32 HCO3 ART 26.3* BASE EXCESS ART 1.3 CARBOXYHEMOGLOBIN 0.7 Brief Urine Lab Results (Last result in the past 365 days) Color Clarity Blood Leuk Est Nitrite Protein CREAT Urine HCG 04/12/25 0648 Yellow Clear Negative Negative Negative Negative Microbiology Results (last 10 days) Procedure Component Value - Date/Time Blood Culture - Blood, Hand, Right [[id number]] (Normal) Collected: 04/12/25 0913 Lab Status: Preliminary result Specimen: Blood from Hand, Right Updated: 04/14/25 1030 Blood Culture No growth at 2 days Narrative: Aerobic Bottle Only Less than seven (7) mL's of blood was collected. Insufficient quantity may yield false negative results. Blood Culture - Blood, Hand, Left [[id number]] (Normal) Collected: 04/12/25 0904 Lab Status: Preliminary result Specimen: Blood from Hand, Left Updated: 04/14/25 1030 Blood Culture No growth at 2 days Narrative: Less than seven (7) mL's of blood was collected. Insufficient quantity may yield false negative results. Respiratory Panel PCR w/COVID-19(SARS-CoV-2) ELSA/GREGORY/JASMIN/PAD/COR/CLAUDETTE In-House, GEAR DESIGN ENGINEER Swab in [facility], 2 HR TAT - Swab, Nasopharynx [[id number]] (Abnormal) Collected: 04/12/25 0559 Lab Status: Final result Specimen: Swab from Nasopharynx Updated: 04/12/25857 ADENOVIRUS, PCR Not Detected Coronavirus 229E Not Detected Coronavirus HKU1 Not Detected Coronavirus NL63 Not Detected Coronavirus OC43 Not Detected COVID19 Not Detected Human Metapneumovirus Not Detected Human Rhinovirus/Enterovirus Detected Influenza A PCR Not Detected Influenza B PCR Not Detected Parainfluenza Virus 1 Not Detected Parainfluenza Virus 2 Not Detected Parainfluenza Virus 3 Not Detected Parainfluenza Virus 4 Not Detected RSV, PCR Not Detected Bordetella pertussis pcr Not Detected Bordetella parapertussis PCR Not Detected Chlamydophila pneumoniae PCR Not Detected Mycoplasma pneumo by PCR Not Detected Narrative: In the setting of a positive respiratory panel with a viral infection PLUS a negative procalcitoninwithout other underlying concern for bacterial infection, consider observing off antibiotics or discontinuation of antibiotics and continue supportive care. If the respiratory panel is positive for atypical bacterial infection (Bordetella pertussis, Chlamydophila pneumoniae, or Mycoplasma pneumoniae), consider antibiotic de-escalation to target atypical bacterial infection. Duplex Carotid Ultrasound CAR Result Date: 04/14/2025 ??? Right internal carotid artery demonstrates a less than 50% stenosis. ??? Antegrade right vertebral flow. ??? Left internal carotid artery demonstrates a less than 50% stenosis. ??? Antegrade leftvertebral flow. MRI Brain Without Contrast Result Date: 04/13/2025 MRI BRAIN WO CONTRAST Date of Exam: 04/13/2025 1:17 AM EDT Indication: Stroke, follow up Rule out stroke symptoms dizziness syncopal episode. Comparison: Outside head CT 04/11/2025 Technique: Routine multiplanar/multisequence sequence images of the brain were obtained without contrast administration. Findings: Diffusion images reveal no acute or subacute ischemia. There is generalized atrophy. There is a tiny old lacunar infarct in the left thalamus. White matter signal is essentially normal for patient age without significant small vessel ischemic disease. No acute hemorrhage is identified. Craniocervical junction is normal. Pituitary unremarkable. No masses are identified. Major intracranial f low voids are maintained. 1.No acute or subacute ischemia. No acute hemorrhage. 2.Tiny old lacunar infarct left thalamus. 3.Mild age-appropriate atrophy. Electronically Signed: Jason Flores MD 04/13/2025 2:53 AM EDT Workstation ID: [id number] CT Angiogram Chest Result Date: 04/12/2025 CT ANGIOGRAM CHEST Date of Exam: 04/12/2025 4:48 PM EDT Indication: near syncope. Comparison: None available. Technique: CTA of the chest was performed before and after the uneventful intravenous administration of 80 cc Isovue-370. Reconstructed coronal and sagittal images were also obtained. In addition, a 3-D volume rendered image was created for interpretation. Automated exposure control and iterative reconstruction methods were used. Findings: PULMONARY VASCULATURE: Pulmonary arteries are widely patent without evidence of embolus. Main pulmonary artery is mildly enlarged measuring 3.3 cm indiameter suggesting pulmonary arterial hypertension. MEDIASTINUM: There are aortic valvular calcific ations. There is minimal calcification of the mitral valve annulus. Aortic and heart size are normal. No aortic dissection identified. No mass nor pericardial effusion. CORONARY ARTERIES: No calcified atherosclerotic disease. LUNGS: No consolidation or suspicious nodule. There is cylindrical bronchiectasis mild in severity with areas of nonspecific reticular interstitial prominence and a degree of central to lower lung fibrosis peripherally. PLEURAL SPACE: No effusion, mass, nor pneumothorax. LYMPH NODES: There are no pathologically enlarged lymph nodes. UPPER ABDOMEN: Unremarkable OSSEOUS STRUCTURES: Appropriate for age with no acute process identified. Impression: 1.No evidence of pulmonary embolism nor other acute cardiopulmonary process. 2.Nonspecific interstitial lung changes with a degree of fibrosis most pronounced in the periphery of the lungbases. Electronically Signed: Artem Fox MD 04/12/2025 5:13 PM EDT Workstation ID: [id number] XR Chest 1 View Result Date: 04/12/2025 XR CHEST 1 VW Date of Exam: 04/12/2025 6:24 AM EDT Indication: cough Comparison: None available. Findings: Mildly enlarged cardiac silhouette. Scattered interstitial coarsening with interspersed airspace opacities, for example in the right lateral midlung. No sizable pleural effusion. No pneumothorax. Osseous structures are grossly unremarkable. Impression: Scattered interstitial coarsening with interspersed airspace opacities, which could reflect pneumonia with possible component of underlying chronic lung disease. Pulmonary edema is a lesslikely differential consideration. No prior exams available for comparison. Electronically Signed: Lore Chávez MD 04/12/2025 7:12 AM EDT Workstation ID: [id number] CT Outside Spine Result Date: 04/12/2025 This procedure was auto-finalized with no dictation required. CT Outside Neck Result Date: 04/12/2025 This procedure was auto-finalized with no dictation required. CT Outside Head Result Date: 04/12/2025 This procedure was auto-finalized with no dictation required. CT Outside Head Result Date: 04/12/2025 This procedure was auto-finalized with no dictation required. Results for orders placed during the hospital encounter of 04/12/25 Duplex Carotid Ultrasound CAR 04/14/2025 12:35 PM Interpretation Summary ??? Right internal carotid artery demonstrates a less than 50% stenosis. ??? Antegrade right vertebral flow. ??? Left internal carotid artery demonstrates a less than 50% stenosis. ??? Antegrade left vertebral flow. Results for orders placed during the hospital encounter of 04/12/25 Duplex Carotid Ultrasound CAR 04/14/2025 12:35 PM Interpretation Summary ??? Right internal carotid artery demonstrates a less than 50% stenosis. ??? Antegrade right vertebral flow. ??? Left internal carotid artery demonstrates a less than 50% stenosis. ??? Antegrade left vertebral flow. Results for orders placed during the hospital encounter of 04/12/25 Adult Transthoracic Echo Complete W/ Cont if Necessary Per Protocol (With Agitated Saline) 04/12/2025 1:49 PM Interpretation Summary Left ventricular systolic function is hyperdynamic (EF > 70%). Calculated left ventricular EF = 74.2% ??? Left ventricular diastolic function is consistent with (grade I) impaired relaxation. ??? Saline test results are negative. ??? Moderate aortic valve stenosis is present. Aortic valve area is 1.2 cm2. ??? Peak velocity of the flow distal to the aortic valve is 305.4 cm/s. Aortic valve maximum pressure gradient is 37 mmHg. Aortic valve mean pressure gradient is 19 mmHg. Aortic valve dimensionless index is 0.42 . Estimated right ventricular systolic pressure from tricuspid regurgitation is normal (<35 mmHg). Calculated right ventricular systolic pressure from tricuspid regurgitation is 13 mmHg. Plan for Follow-up of Pending Labs/Results: Pending Labs Order Current Status Blood Culture - Blood, Hand, Left Preliminary result Blood Culture - Blood, Hand, Right Preliminary result Discharge Details Discharge Medications New Medications Instructions Start Date acetaminophen 325 MG tablet Commonly known as: TYLENOL 650 mg, Oral, Every 4 Hours PRN aspirin 81 MG chewable tablet 81 mg, Oral, Daily, OTC x 21 days along with Brilinta. Then Brilinta monotherapy. Start Date: April 15, 2025 doxycycline 100 MG capsule Commonly known as: MONODOX 100 mg, Oral, Every 12 Hours Scheduled polyethylene glycol 17 g packet Commonly known as: MIRALAX 17 g, Oral, Daily PRN ticagrelor 90 MG tablet tablet Commonly known as: BRILINTA 90 mg, Oral, 2 Times Daily Changes to Medications Instructions Start Date atorvastatin 80 MG tablet Commonly known as: LIPITOR What changed: medication strength how much to take when to take this 80 mg, Oral, Nightly isosorbide mononitrate 60 MG 24 hr tablet Commonly known as: IMDUR What changed: Another medication with the same name was removed. Continue taking this medication, and follow the directions you see here. 60 mg, Oral, Daily Continue These Medications Instructions Start Date albuterol (2.5 MG/3ML) 0.083% nebulizer solution Commonly known as: PROVENTIL 2.5 mg, Nebulization, Every 6 Hours PRN albuterol sulfate HFA 108 (90 Base) MCG/ACT inhaler Commonly known as: PROVENTIL HFA;VENTOLIN HFA;PROAIR HFA 2 puffs, Inhalation, Every 4 Hours PRN esomeprazole 40 MG capsule Commonly known as: nexIUM 40 mg, Oral, Every Morning Before Breakfast insulin glargine 100 UNIT/ML injection Commonly known as: LANTUS, SEMGLEE 50 Units, Subcutaneous, Nightly Insulin Lispro 100 UNIT/ML injection Commonly known as: humaLOG 15 Units, Subcutaneous, 3 Times Daily Before Meals metoprolol succinate XL 25 MG 24 hr tablet Commonly known as: TOPROL-XL 25 mg, Oral, Daily Semaglutide(0.25 or 0.5MG/DOS) 2 MG/1.5ML solution pen-injector Commonly known as: OZEMPIC 0.25 mg, Subcutaneous, Weekly spironolactone 25 MG tablet Commonly known as: ALDACTONE 25 mg, Oral, Daily Trelegy Ellipta 100-62.5-25 MCG/ACT inhaler Generic drug: Bvgvntpjpxa-Nforxvzqf-Vacdtt 1 puff, Inhalation, Daily - RT Stop These Medications Diclofenac Sodium 1 % gel gel Commonly known as: VOLTAREN predniSONE 1 MG tablet Commonly known as: DELTASONE Allergies Allergen Reactions ??? Penicillins Anaphylaxis As a child at 1 years old ??? Sulfa Antibiotics Itching and Angioedema Discharge Disposition: Home or Self Care Diet: Hospital: Diet Order Procedures ??? Diet: Cardiac, Diabetic; Healthy Heart (2-3 Na+); Consistent Carbohydrate; Fluid Consistency: Thin (IDDSI 0) Diet Instructions Diet: Cardiac Diets, Diabetic Diets; Healthy Heart (2-3 Na+); Regular (IDDSI 7); Thin (IDDSI 0); Consistent Carbohydrate Discharge Diet: Cardiac Diets Diabetic Diets Cardiac Diet: Healthy Heart (2-3 Na+) Texture: Regular (IDDSI 7) Fluid Consistency: Thin (IDDSI 0) Diabetic Diet: Consistent Carbohydrate Activity: Activity Instructions Activity as Tolerated Measure Blood Pressure Restrictions or Other Recommendations: CODE STATUS: Code Status and Medical Interventions: No CPR (Do Not Attempt to Resuscitate); Limited Support; No intubation (DNI) Ordered at: 04/12/25 1236 Code Status (Patient has no pulse and is not breathing): No CPR (Do Not Attempt to Resuscitate) Medical Interventions (Patient has pulse or is breathing): Limited Support Medical Intervention Limits: No intubation (DNI) Level Of Support Discussed With: Patient No future appointments. Additional Instructions for the Follow-ups that You Need to Schedule Ambulatory Referral to [facility] [place] As directed Results should go to her primary agricultural researcher, Dr. Valencia in [facility] for further management (NOT to hospitalist) Order Comments: Results should go to her primary agricultural researcher, Dr. Valencia in [facility] for further management (NOT to hospitalist) Service Requested: [facility] (poss TIA, r/o arrhythmia) Other Ambulatory Referral to Neurology As directed 6-8 weeks, possible TIA Order Comments: 6-8 weeks, possible TIA Discharge Follow-up with PCP As directed Currently Documented PCP: Eben Liu MD PCP Follow Up Details: Follow-up PCP 1 week of discharge (please schedule appointment prior to DC) Discharge Follow-up with Specialty: [facility]-up with [facility] stroke clinic in 6-8 weeks (please schedule appointment prior to DC) As directed Specialty: Follow-up with [facility] in the stroke clinic in 6-8 weeks (please schedule appointment prior to DC) Discharge Follow-up with Specified Provider: Follow-up with her primary agricultural researcher, Dr. Valencia in [place] in 3-4 weeks (please schedule appointment prior to DC) As directed To: Follow-up with her primary agricultural researcher, Dr. Valencia in [place] in 3-4 weeks (please schedule appointment prior to DC) Discharge Follow-up with Specified Provider: Follow-up with her primary limo driver as prior scheduled As directed To: Follow-up with her primary limo driver as prior scheduled Vee León APRN 04/14/25 Time Spent on Discharge: I spent 45 minutes on this discharge activity which included: [id number] with the patient, reviewing the data in the system, coordination of the care with the nursing staff as well as consultants, documentation, and entering orders. Cosigned by Tevin Lees MD at 04/14/2025 4:30 PM EDT Associated attestation - Tevin Lees MD - 04/14/2025 4:30 PM EDT I have reviewed this documentation and agree. Attending Cosignature I supervised care of the patient on day of service with direct care provided by the advanced care provider (APC). Tevin Lees MD 04/14/25 * Lolly Mar MS [facility]-PALLIATIVE CARE NURSE - 04/12/2025 2:29 PM EDT Images from the original note were not included. Acute Care - Speech Language Pathology Initial Evaluation/Discharge [facility] Cognitive-Communication Evaluation Patient Name: Karyn Sanz : 1960 Today's Date: 04/12/2025 Admit Date: 04/12/2025 Visit Dx: ICD-10-CM ICD-9-CM 1. Cerebrovascular accident (CVA), unspecified mechanism I63.9 434.91 Patient Active Problem List Diagnosis Stroke Chronic respiratory failure with hypoxia Primary hypertension Type 2 diabetes mellitus, with long-term current use of insulin Past Medical History: Diagnosis Date Arthritis Asthma COPD (chronic obstructive pulmonary disease) Diabetes mellitus Hyperlipidemia Hypertension Interstitial lung disease with RH factor Murmur Osteoarthritis Rheumatoid arthritis Sleep apnea Smoker Past Surgical History: Procedure Laterality Date APPENDECTOMY CARDIAC CATHETERIZATION HYSTERECTOMY TUBAL ABDOMINAL LIGATION Bilateral PALLIATIVE CARE NURSE Recommendation and Plan PALLIATIVE CARE NURSE Diagnosis: functional speech/language skills, mild, 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--baseline per pt/spouse) (04/12/25 1330) [facility] Criteria for Skilled Therapy Interventions Met: no problems identified which require skilled intervention, baseline status (04/12/25 133) Anticipated Discharge Disposition (PALLIATIVE CARE NURSE): No further PALLIATIVE CARE NURSE services warranted (consider OP PALLIATIVE CARE NURSE services in future if interested) (04/12/25 133) PALLIATIVE CARE NURSE EVALUATION (Last 72 Hours) PALLIATIVE CARE NURSE [facility] Evaluation Row Name 04/12/251329 Communication Assessment/Intervention Document Type discharge evaluation/summary -AC Subjective Information no complaints -AC Patient Observations alert;cooperative -AC Patient/Family/Caregiver Comments/Observations Spouse present. -AC Patient Effort good -AC General Information Patient Profile Reviewed yes -AC Pertinent History Of Current Problem Headache w/ vomitig, dizziness w/ fall, blurry vision, stiff nec. Concern for L MD OPHTHALMOLOGIST occlusion. Hx TIA per pt. -AC Precautions/Limitations, Vision WFL with corrective lenses;for purposes of eval -AC Precautions/Limitations, Hearing WFL;for purposes of eval -AC Patient Level of Education Some college -AC Prior Level of Function-Communication cognitive-linguistic impairment some mild cognitive difficulty/short-term memory deficits since TIA yrs ago per pt -AC Plans/Goals Discussed with patient;spouse/S.O.;agreed upon -AC Barriers to Rehab previous functional deficit -AC Patient's Goals for Discharge patient did not state -AC Family Goals for Discharge family did not state -AC Pain Pretreatment Pain Rating 0/10 - no pain -AC Posttreatment Pain Rating 0/10 - no pain -AC Comprehension Assessment/Intervention Comprehension Assessment/Intervention Auditory Comprehension;Reading Comprehension -AC Auditory Comprehension Assessment/Intervention Auditory Comprehension (Communication) WFL -AC Answers Questions (Communication) WFL;complex;yes/no -AC Able to Follow Commands (Communication) WFL;2-step -AC Narrative Discourse WFL;conversational level -AC Reading Comprehension Assessment/Intervention Reading Comprehension (Communication) WFL -AC Phrase Level WFL -AC Expression Assessment/Intervention Expression Assessment/Intervention verbal expression;graphic expression -AC Verbal Expression Assessment/Intervention Verbal Expression WFL -AC Responsive Naming WFL;simple -AC Confrontational Naming WFL;high frequency -AC Conversational Discourse/Fluency WFL -AC Graphic Expression Assessment/Intervention Graphic Expression WFL -AC Graphic Expression, Comment Paragraph level- WFL - Motor Speech Assessment/Intervention Motor Speech Function [facility] - Conversational Speech (Communication) [facility] - Speech intelligibility 100%;in quiet environment;in connected speech;with unfamiliar listener - Cursory Voice Assessment/Intervention Quality and Resonance (Voice) L - Cognitive Assessment Intervention- PALLIATIVE CARE NURSE Orientation Status (Cognition) WFL;person;place;time;situation - Memory (Cognitive) mild impairment;short-term;delayed immediate recall- 5/5 words, 7-min delayed recall- 3/5 words (5/5 w/ min cue)--baseline per pt/spouse -AC Attention (Cognitive) WFL;sustained -AC Thought Organization (Cognitive) WFL;abstract convergent;mental manipulation - Reasoning (Cognitive) WFL;mental flexibility - Problem Solving (Cognitive) WFL;temporal -AC Functional Math (Cognitive) WFL;word problems - Executive Function (Cognition) [facility] - Pragmatics (Communication) [facility] - PALLIATIVE CARE NURSE Evaluation Clinical Impressions PALLIATIVE CARE NURSE Diagnosis functional speech/language skills;mild;cognitive-linguistic disorder affecting delayed recall/short-term memory--baseline per pt/spouse -AC [facility] Criteria for Skilled Therapy Interventions Met no problems identified which require skilled intervention;baseline status - Recommendations Anticipated Discharge Disposition (PALLIATIVE CARE NURSE) No further PALLIATIVE CARE NURSE services warranted consider OP PALLIATIVE CARE NURSE services in future if interested - User Freedman (r) = Recorded By, (t) = Taken By, (c) = Cosigned By Initials Name Effective Dates Lolly Ortiz MS CCC-PALLIATIVE CARE NURSE 10/11/22 - EDUCATION The patient has been educated in the following areas: Cognitive Impairment Communication Impairment. Time Calculation: Time Calculation- PALLIATIVE CARE NURSE Row Name 04/12/25 1429 Time Calculation- PALLIATIVE CARE NURSE PALLIATIVE CARE NURSE Start Time 1330 -AC PALLIATIVE CARE NURSE Received On 04/12/25 - Untimed Charges 53836-[id number] Eval Speech and Production w/ Language Minutes 50 -AC Total Minutes Untimed Charges Total Minutes 50 -AC Total Minutes 50 -AC User Freedman (r) = Recorded By, (t) = Taken By, (c) = Cosigned By Initials Name Provider Type oLlly Ortiz MS CCC-PALLIATIVE CARE NURSE Speech and Language Pathologist Therapy Charges for Today Code Description Service Date Service Provider Modifiers Qty [id number] HC ST EVAL SPEECH AND PROD W LANG 3 04/12/2025 Lolly Mar MS CCC- PALLIATIVE CARE NURSE GN 1 PALLIATIVE CARE NURSE Discharge Summary Anticipated Discharge Disposition (PALLIATIVE CARE NURSE): No further PALLIATIVE CARE NURSE services warranted (consider OP PALLIATIVE CARE NURSE services in future if interested) Lolly Mar MS CCC-PALLIATIVE CARE NURSE 04/12/2025 * Leticia Trujillo, PT - 04/12/2025 1:54 PM EDT Images from the original note were not included. Patient Name: Karyn Sanz : 1960 Today's Date: 04/12/2025 Admit Date: 04/12/2025 Visit Dx: ICD-10-CM ICD-9-CM 1. Cerebrovascular accident (CVA), unspecified mechanism I63.9 434.91 Patient Active Problem List Diagnosis Stroke Chronic respiratory failure with hypoxia Primary hypertension Type 2 diabetes mellitus, with long-term current use of insulin Past Medical History: Diagnosis Date Arthritis Asthma COPD (chronic obstructive pulmonary disease) Diabetes mellitus Hyperlipidemia Hypertension Interstitial lung disease with RH factor Murmur Osteoarthritis Rheumatoid arthritis Sleep apnea Smoker Past Surgical History: Procedure Laterality Date APPENDECTOMY CARDIAC CATHETERIZATION HYSTERECTOMY TUBAL ABDOMINAL LIGATION Bilateral General Information Row Name 04/12/25 1426 Physical Therapy Time and Intention Document Type discharge evaluation/summary -CD Mode of Treatment physical therapy -CD Row Name 04/12/25 1426 General Information Patient Profile Reviewed yes -CD Prior Level of Function independent:;all household mobility;community mobility;gait;transfer;bed mobility;ADL's;driving;using stairs PT TAKES CARE OF 3 YOUNG GRANDCHILDREN. DENIES RECENT FALLS. HAS ROLLATOR FOR LONG DISTANCES DUE TO RESPIRATORY STATUS, FATIGUE. USES STAIRS TO BASEMENT ONLY ON OCCASION. USED 2L O2 AAT MATH AND PHYSICS INSTRUCTOR. -CD Existing Precautions/Restrictions oxygen therapy device and L/min -CD Barriers to Rehab none identified -CD Row Name 04/12/25 1426 Living Environment Current Living Arrangements home -CD People in Home significant other -CD Row Name 04/12/25 1426 Home Main Entrance Number of Stairs, Main Entrance none USES RAMP -CD Row Name 04/12/25 1426 Stairs Within Home, Primary Stairs, Within Home, Primary STEPS TO BASEMENT. -CD Number of Stairs, Within Home, Primary twelve -CD Stair Railings, Within Home, Primary railings safe and in good condition -CD Row Name 04/12/25 1426 Cognition Orientation Status (Cognition) oriented x 4 -CD Row Name 04/12/25 1426 Safety Issues/Impairments Affecting Functional Mobility Safety Issues Affecting Function (Mobility) other (see comments) DECREASED SAFETY AWARENESS WITH IVLINE. -CD Comment, Safety Issues/Impairments (Mobility) NO SAFETY CONCERNS WITH MOBILITY BUT NEEDED CUES TO ATTEND TO IV LINES. NSG NOTIFIED PT IS SAFE TO BE UP AD AMBER WHEN DISCONNECTED FROM IV. PT USES O2 AT BASELINE AND IS USED TO MANAGING O2 TUBING. -CD User Freedman (r) = Recorded By, (t) = Taken By, (c) = Cosigned By Initials Name Provider Type Leticia Hammond PT Physical Therapist Mobility Row Name 04/12/25 1440 Bed Mobility Bed Mobility supine-sit -CD Supine-Sit [place] (Bed Mobility) independent -CD Row Name 04/12/25 1440 Sit-Stand Transfer Sit-Stand [place] (Transfers) independent -CD Row Name 04/12/25 1440 Gait/Stairs (Locomotion) [place] Level (Gait) independent -CD Distance in Feet (Gait) 300 -CD Comment, (Gait/Stairs) NO LOB OR DIFFICULTY WITH GAIT IN PARKER AND DYNAMIC BALANCE ACTIVITY OF BACKWARDS WALKING AND TURNING 180 DEGREES. DEMONSTATED GOOD BALANCE WITHOUT A.D. -CD User Freedman (r) = Recorded By, (t) = Taken By, (c) = Cosigned By Initials Name Provider Type Leticia Hammond PT Physical Therapist Obj/Interventions Row Name 04/12/25 1442 Range of Motion Comprehensive General Range of Motion bilateral lower extremity ROM WFL -CD Row Name 04/12/25 1442 Strength Comprehensive (MMT) General Manual Muscle Testing (MMT) Assessment no strength deficits identified -CD Comment, General Manual Muscle Testing (MMT) Assessment B LE GROSSLY 5/5 AND SYMMETRICAL. -CD Row Name 04/12/25 1442 Motor Skills Motor Skills functional endurance -CD Functional Endurance PT SOA WITH ACTIVITY ON 2L O2. NOTED DROP IN O2 SATS TO 87%. QUICKLY REBOUNDEDTO 94% WITH REST AND CUES FOR PLB AND TO STOP TALKING. -CD Row Name 04/12/25 1442 Balance Balance Assessment sitting static balance;sitting dynamic balance;standing static balance;standing dynamic balance -CD Static Sitting Balance independent -CD Dynamic Sitting Balance independent -CD Position, Sitting Balance unsupported -CD Static Standing Balance independent -CD Dynamic Standing Balance independent -CD Position/Device Used, Standing Balance unsupported -CD Comment, Balance SEE GAIT NOTE. NO BALANCE DEFICITS NOTED. -CD Row Name 04/12/25 1442 Sensory Assessment (Somatosensory) Sensory Assessment (Somatosensory) LE sensation intact -CD User Freedman (r) = Recorded By, (t) = Taken By, (c) = Cosigned By Initials Name Provider Type CD Leticia Trujillo, PT Physical Therapist Goals/Plan No documentation. Clinical Impression Row Name 04/12/25 1444 Pain Pain Location head -CD Response to Pain Interventions no change per patient report - Additional Documentation Pain Scale: FACES Pre/Post-Treatment (Group) - Row Name 04/12/25 1444 Pain Scale: FACES Pre/Post-Treatment Pain: FACES Scale, Pretreatment 2-->hurts little bit -CD Posttreatment Pain Rating 2-->hurts little bit -CD Pre/Posttreatment Pain Comment REPORTS RESIDUAL MILD MANLEY. - Row Name 04/12/25 1448 Plan of Care Review Plan of Care Reviewed With patient;spouse - Outcome Evaluation GOALS NOT ESTABLISHED PT IS AT BASELINE WITH FUNCTIONAL MOBILITY. PT CONTINUES TO C/O MILD RESIDUAL MANLEY. AMBULATED 300 FEET AND COMPLETED DYNAMIC BALANCE ACTIVITY WITH NO LOB OR DIFFICULTY. PT IS SOA WITH ACTIVITY ON 2L WITH DROP IN O2 SATS TO 87%, BUT QUICKLY REBOUNDS TO 94% WITH REST AND CUES FOR PLB. PT USED ROLLATOR MATH AND PHYSICS INSTRUCTOR PRN FOR FATIGUE/SOA WITH COMMUNITY MOBILITY. WILL DEFER TO NS FOR CONTINUED AMBULATION IN HALLS. RECOMMEND HOME WITH FAMILY AT D/C. P.T. IS SIGNING OFF. -CD Row Name 04/12/25 1449 Therapy Assessment/Plan (PT) Patient/Family Therapy Goals Statement (PT) TO GO HOME. -CD Criteria for Skilled Interventions Met (PT) no;does not meet criteria for skilled intervention -CD Therapy Frequency (PT) evaluation only -CD Row Name 04/12/25 1443 Vital Signs Post Systolic BP Rehab 125 -CD Post Treatment Diastolic BP 70 -CD Posttreatment Heart Rate (beats/min) 92 -CD Pre SpO2 (%) 96 -CD O2 Delivery Pre Treatment supplemental O2 -CD Intra SpO2 (%) 87 -CD O2 Delivery Intra Treatment supplemental O2 -CD Post SpO2 (%) 96 -CD O2 Delivery Post Treatment supplemental O2 -CD Pre Patient Position Supine -CD Intra Patient Position Standing -CD Post Patient Position Sitting -CD Row Name 04/12/25 1444 Positioning and Restraints Pre-Treatment Position in bed -CD Post Treatment Position chair -CD In Chair reclined;call light within reach;encouraged to call for assist;legs elevated;notified nsg NSG NOTIFIED PT IS SAFE TO BE UP AD AMBER WHEN IV DISCONNECTED. -CD User Freedman (r) = Recorded By, (t) = Taken By, (c) = Cosigned By Initials Name Provider Type Leticia Hammond, PT Physical Therapist Outcome Measures Row Name 04/12/25 1453 04/12/25 0818 How much help from another person do you currently need... Turning from your back to your side while in flat bed without using bedrails? 4 -CD 4 -DF Moving from lying on back to sitting on the side of a flat bed without bedrails? 4 -CD 4 -DF Moving to and from a bed to a chair (including a wheelchair)? 4 -CD 4 -DF Standing up from a chair using your arms (e.g., wheelchair, bedside chair)? 4 - CD 4 -DF Climbing 3-5 steps with a railing? 4 -CD 3 -DF To walk in hospital room? 4 -CD 4 -DF AM-PAC 6 Clicks Score (PT) 24 -CD 23 -DF Row Name 04/12/25 0319 How much help from another person do you currently need... Turning from your back to your side while in flat bed without using bedrails? 4 -LH Moving from lying on back to sitting on the side of a flat bed without bedrails? 4 -LH Moving to and from a bed to a chair (including a wheelchair)? 4 -LH Standing up from a chair using your arms (e.g., wheelchair, bedside chair)? 4 -LH Climbing 3-5 steps with a railing? 3 -LH To walk in hospital room? 4 -LH AM-PAC 6 Clicks Score (PT) 23 -LH User Freedman (r) = Recorded By, (t) = Taken By, (c) = Cosigned By Initials Name Provider Type CD Leticia Trujillo PT Physical Therapist Mariela Dickinson RN Registered Nurse Karley Keyes RN Registered Nurse Physical Therapy Education Title: PT OT PALLIATIVE CARE NURSE Therapies (Done) Topic: Physical Therapy (Done) Point: Precautions (Done) Learning Progress Summary Patient Acceptance, E, VU by CD at 04/12/2025 1454 Comment: BENEFITS OF OOB ACTIVITY, SAFETY WITH MOBILITY, PLB WITH SOA, D/C REC'S Significant Other Acceptance, E, VU by CD at 04/12/2025 1454 Comment: BENEFITS OF OOB ACTIVITY, SAFETY WITH MOBILITY, PLB WITH SOA, D/C REC'S User Freedman Initials Effective Dates Name Provider Type Discipline 10/11/22 - Leticia Trujillo PT Physical Therapist PT PT Recommendation and Plan Outcome Evaluation: GOALS NOT ESTABLISHED PT IS AT BASELINE WITH FUNCTIONAL MOBILITY. PT CONTINUES TO C/O MILD RESIDUAL MANLEY. AMBULATED 300 FEET AND COMPLETED DYNAMIC BALANCE ACTIVITY WITH NO LOB ORDIFFICULTY. PT IS SOA WITH ACTIVITY ON 2L WITH DROP IN O2 SATS TO 87%, BUT QUICKLY REBOUNDS TO 94% WITH REST AND CUES FOR PLB. PT USED ROLLATOR MATH AND PHYSICS INSTRUCTOR PRN FOR FATIGUE/SOA WITH COMMUNITY MOBILITY. WILL DEFER TO NSG FOR CONTINUED AMBULATION IN HALLS. RECOMMEND HOME WITH FAMILY AT D/C. P.T. IS SIGNING OFF. Time Calculation: PT Charges Row Name 04/12/251454 Time Calculation Start Time 1354 -CD PT Received On 04/12/25 -CD Untimed Charges PT Eval/Re-eval Minutes 57 -CD Total Minutes Untimed Charges Total Minutes 57 -CD Total Minutes 57 -CD User Freedman (r) = Recorded By, (t) = Taken By, (c) = Cosigned By Initials Name Provider Type CD Leticia Trujillo PT Physical Therapist Therapy Charges for Today Code Description Service Date Service Provider Modifiers Qty [id number] HC PT EVAL LOW COMPLEXITY 4 04/12/2025 Leticia Trujillo PT GP 1 PT G-Codes AM-PAC 6 Clicks Score (PT): 24 PT Discharge Summary Anticipated Discharge Disposition (PT): home Leticia Trujillo PT 04/12/2025 * Caitie Posadas, OT - 04/12/2025 1:44 PM EDT Images from the original note were not included. Acute Care - Occupational Therapy Discharge [facility] Patient Name: Karyn Sanz : 1960 Today's Date: 04/12/2025 Admit Date: 04/12/2025 Visit Dx: ICD-10-CM ICD-9-CM 1. Cerebrovascular accident (CVA), unspecified mechanism I63.9 434.91 Patient Active Problem List Diagnosis Stroke Chronic respiratory failure with hypoxia Primary hypertension Type 2 diabetes mellitus, with long-term current use of insulin Past Medical History: Diagnosis Date Arthritis Asthma COPD (chronic obstructive pulmonary disease) Diabetes mellitus Hyperlipidemia Hypertension Interstitial lung disease with RH factor Murmur Osteoarthritis Rheumatoid arthritis Sleep apnea Smoker Past Surgical History: Procedure Laterality Date APPENDECTOMY CARDIAC CATHETERIZATION HYSTERECTOMY TUBAL ABDOMINAL LIGATION Bilateral General Information Row Name 04/12/25 1513 OT Time and Intention Document Type discharge evaluation/summary -MR Mode of Treatment occupational therapy -MR Patient Effort good -MR Row Name 04/12/25 151 General Information Patient Profile Reviewed yes -MR Prior Level of Function independent:;all household mobility;community mobility;gait;transfer;bed mobility;ADL's;driving;using stairs PT TAKES CARE OF 3 YOUNG GRANDCHILDREN. DENIES RECENT FALLS. HAS ROLLATOR FOR LONG DISTANCES DUE TO RESPIRATORY STATUS, FATIGUE. USES STAIRS TO BASEMENT ONLY ON OCCASION. USED 2L O2 AAT MATH AND PHYSICS INSTRUCTOR. -MR Existing Precautions/Restrictions oxygen therapy device and L/min -MR Barriers to Rehab none identified -MR Row Name 04/12/25 151 Living Environment Current Living Arrangements home -MR People in Home significant other -MR Row Name 04/12/25 151 Home Main Entrance Number of Stairs, Main Entrance none;other (see comments) Ramp -MR Row Name 04/12/25 151 Stairs Within Home, Primary Stairs, Within Home, Primary Steps to the basement -MR Number of Stairs, Within Home, Primary twelve -MR Stair Railings, Within Home, Primary railings safe and in good condition -MR Row Name 04/12/25 151 Cognition Orientation Status (Cognition) oriented x 4 -MR Row Name 04/12/25 1513 Safety Issues/Impairments Affecting Functional Mobility Safety Issues Affecting Function (Mobility) other (see comments) Decreased safety awareness with line management. -MR User Freedman (r) = Recorded By, (t) = Taken By, (c) = Cosigned By Initials Name Provider Type Caitie Posadas OT Occupational Therapist Mobility/ADL's Row Name 04/12/25 151 Bed Mobility Bed Mobility supine-sit -MR Supine-Sit [place] (Bed Mobility) independent -MR Row Name 04/12/25 1514 Transfers Transfers sit-stand transfer -MR Row Name 04/12/25 151 Sit-Stand Transfer Sit-Stand [place] (Transfers) independent -MR Row Name 04/12/25 1514 Functional Mobility Functional Mobility- Ind. Level independent -MR Functional Mobility-Distance (Feet) -- HH distances -MR Row Name 04/12/25 151 Activities of Daily Living BADL Assessment/Intervention lower body dressing;toileting;upper body dressing -MR Row Name 04/12/25 151 Lower Body Dressing Assessment/Training [place] Level (Lower Body Dressing) don;socks;independent -MR Position (Lower Body Dressing) edge of bed sitting -MR Row Name 04/12/25 1514 Toileting Assessment/Training [place] Level (Toileting) toileting skills;independent -MR Position (Toileting) unsupported sitting;unsupported standing -MR Row Name 04/12/25 1514 Upper Body Dressing Assessment/Training [place] Level (Upper Body Dressing) don;independent -MR Position (Upper Body Dressing) unsupported standing -MR User Freedman (r) = Recorded By, (t) = Taken By, (c) = Cosigned By Initials Name Provider Type MR Posadas CaitieGILES Occupational Therapist Obj/Interventions Row Name 04/12/25 151 Sensory Assessment (Somatosensory) Sensory Assessment (Somatosensory) UE sensation intact -MR Row Name 04/12/25 151 Vision Assessment/Intervention Visual Impairment/Limitations WFL -MR Row Name 04/12/25 151 Range of Motion Comprehensive General Range of Motion bilateral upper extremity ROM WFL -MR Row Name 04/12/25 151 Strength Comprehensive (MMT) General Manual Muscle Testing (MMT) Assessment no strength deficits identified -MR Row Name 04/12/25 151 Balance Balance Assessment sitting static balance;sitting dynamic balance;standing static balance;standing dynamic balance -MR Static Sitting Balance independent -MR Dynamic Sitting Balance independent -MR Position, Sitting Balance unsupported -MR Static Standing Balance independent -MR Dynamic Standing Balance independent -MR Position/Device Used, Standing Balance unsupported -MR User Freedman (r) = Recorded By, (t) = Taken By, (c) = Cosigned By Initials Name Provider Type Caitie Posadas, OT Occupational Therapist Goals/Plan No documentation. Clinical Impression Row Name 04/12/25 1515 Pain Assessment Pretreatment Pain Rating 0/10 - no pain -MR Posttreatment Pain Rating 0/10 - no pain -MR Row Name 04/12/25 1515 Plan of Care Review Plan of Care Reviewed With patient;spouse -MR Progress no change Initial Eval/Discharge -MR Outcome Evaluation Patient presenting at or near her functional baseline w/ mobility, transfers andbalance. Pt completed ADLs independently. No skilled OT warranted at this time, OT signing off. Recommend home w/ family when medically appropriate for d/c. -MR Row Name 04/12/25 1515 Therapy Assessment/Plan (OT) Criteria for Skilled Therapeutic Interventions Met (OT) no;no problems identified which require skilled intervention -MR Therapy Frequency (OT) evaluation only -MR Row Name 04/12/25 1515 Therapy Plan Review/Discharge Plan (OT) Anticipated Discharge Disposition (OT) home with assist -MR Row Name 04/12/25 1515 Vital Signs Pre Systolic BP Rehab 147 -MR Pre Treatment Diastolic BP 72 -MR Post Systolic BP Rehab 125 -MR Post Treatment Diastolic BP 70 -MR Pretreatment Heart Rate (beats/min) 87 -MR Posttreatment Heart Rate (beats/min) 92 -MR Pre SpO2 (%) 98 -MR O2 Delivery Pre Treatment nasal cannula -MR Intra SpO2 (%) 87 -MR O2 Delivery Intra Treatment nasal cannula -MR Post SpO2 (%) 92 -MR O2 Delivery Post Treatment nasal cannula -MR Pre Patient Position Supine -MR Intra Patient Position Standing -MR Post Patient Position Sitting -MR Row Name 04/12/25 1515 Positioning and Restraints Pre-Treatment Position in bed -MR Post Treatment Position chair -MR In Chair notified nsg;call light within reach;encouraged to call for assist;exit alarm on;waffle cushion Pt cleared to be ad amber by nursing in room. -MR User Freedman (r) = Recorded By, (t) = Taken By, (c) = Cosigned By Initials Name Provider Type MR Caitie Posadas, OT Occupational Therapist Outcome Measures Row Name 04/12/25 1518 How much help from another is currently needed... Putting on and taking off regular lower body clothing? 4 -MR Bathing (including washing, rinsing, and drying) 4 -MR Toileting (which includes using toilet bed ledbetter or urinal) 4 -MR Putting on and taking off regular upper body clothing 4 -MR Taking care of personal grooming (such as brushing teeth) 4 -MR Eating meals 4 -MR AM-PAC 6 Clicks Score (OT) 24 -MR Row Name 04/12/25 1453 04/12/25 0818 How much help from another person do you currently need... Turning from your back to your side while in flat bed without using bedrails? 4 -CD 4 -DF Moving from lying on back to sitting on the side of a flat bed without bedrails? 4 -CD 4 -DF Moving to and from a bed to a chair (including a wheelchair)? 4 -CD 4 -DF Standing up from a chair using your arms (e.g., wheelchair, bedside chair)? 4 - CD 4 -DF Climbing 3-5 steps with a railing? 4 -CD 3 -DF To walk in hospital room? 4 -CD 4 -DF AM-PAC 6 Clicks Score (PT) 24 -CD 23 -DF Row Name 04/12/25 1518 Modified Ona Scale Pre-Stroke Modified Calli Scale 6 - Unable to determine (UTD) from the medical record documentation -MR Modified Calli Scale 0 - No Symptoms at all. -MR Row Name 04/12/25 1518 Functional Assessment Outcome Measure Options AM-PAC 6 Clicks Daily Activity (OT);Modified Calli -MR User Freedman (r) = Recorded By, (t) = Taken By, (c) = Cosigned By Initials Name Provider Type Leticia Hammond, PT Physical Therapist Mariela Dickinson, RN Registered Nurse Caitie Robles, OT Occupational Therapist Occupational Therapy Education Title: PT OT PALLIATIVE CARE NURSE Therapies (In Progress) Topic: Occupational Therapy (In Progress) Point: ADL training (Done) Learning Progress Summary Patient Acceptance, E, VU by MR at 04/12/2025 1519 Point: Precautions (Done) Learning Progress Summary Patient Acceptance, E, VU by MR at 04/12/2025 1519 Point: Body mechanics (Done) Learning Progress Summary Patient Acceptance, E, VU by MR at 04/12/2025 1519 User Freedman Initials Effective Dates Name Provider Type Discipline MR 05/30/22 - Caitie Posadas OT Occupational Therapist OT OT Recommendation and Plan Therapy Frequency (OT): evaluation only Plan of Care Review Plan of Care Reviewed With: patient, spouse Progress: no change (Initial Eval/Discharge) Outcome Evaluation: Patient presenting at or near her functional baseline w/ mobility, transfers and balance. Pt completed ADLs independently. No skilled OT warranted at this time, OT signing off. Recommend home w/ family when medically appropriate for d/c. Plan of Care Reviewed With: patient, spouse Outcome Evaluation: Patient presenting at or near her functional baseline w/ mobility, transfers and balance. Pt completed ADLs independently. No skilled OT warranted at this time, OT signing off. Recommend home w/ family when medically appropriate for d/c. Time Calculation: Evaluation Complexity (OT) Review Occupational Profile/Medical/Therapy History Complexity: brief/low complexity Assessment, Occupational Performance/Identification of Deficit Complexity: 1-3 performance deficits Clinical Decision Making Complexity (OT): problem focused assessment/low complexity Overall Complexity of Evaluation (OT): low complexity Time Calculation- OT Row Name 04/12/25 1520 Time Calculation- OT OT Start Time 1344 -MR OT Received On 04/12/25 -MR OT Goal Re-Cert Due Date 04/22/25 -MR Untimed Charges OT Eval/Re-eval Minutes 46 -MR Total Minutes Untimed Charges Total Minutes 46 -MR Total Minutes 46 -MR User Freedman (r) = Recorded By, (t) = Taken By, (c) = Cosigned By Initials Name Provider Type MR Caitie Posadas OT Occupational Therapist Therapy Charges for Today Code Description Service Date Service Provider Modifiers Qty [id number] OT EVAL LOW COMPLEXITY 4 04/12/2025 Caitie Posadas OT GO 1 OT Discharge Summary Anticipated Discharge Disposition (OT): home with assist Caitie Posadas OT 04/12/2025 documented in this encounter Discharge Instructions * Discharge Instructions* Angy Dc, [facility] - 04/13/2025 9:34 AM EDT -Continue the following medications: Aspirin 81mg daily, Brilinta 90mg twice daily, and Atorvastatin 80mg nightly. On 05/05 stop aspirin and continue Brilinta 90 mg twice daily. Call office if you experience abnormal shortness of breath. -Monitor blood pressure; goal 120-140/80-90 -Goal blood glucose <140 -Increase physical activity as tolerated; goal exercise 30 minutes/day 3-5 times weekly if able -Call 911 for stroke symptoms (unilateral weakness, unilateral numbness, vision loss/double vision,speech difficulty, trouble walking, sudden severe headache or headache with nausea/vomiting/confusion/or decreased level of consciousness) -Schedule follow-up with your primary care physician, agricultural researcher, and limo driver * Appointments* Maryjane Temple - 04/14/2025 2:50 PM EDT [employer] Attendant July 27, 2025 9 am * Attachments The following attachments cannot be sent through Care Everywhere. * Ticagrelor Tablets (Chadian) * Stroke Prevention Fbff-on-Arqq (Chadian) * Type 2 Diabetes Mellitus Diagnosis Adult Hwas-hs-Ofpk (Chadian) * Migraine Headache Suhx-fb-Dkub (Chadian) * Doxycycline Capsules or Tablets (Chadian) * Polyethylene Glycol Powder for Solution (Chadian) * Aspirin and Your Heart (Chadian) documented in this encounter Medications at Time of Discharge acetaminophen (TYLENOL) 325 MG tablet Take 2 tablets by mouth Every 4 (Four) Hours As Needed for Mild Pain. 04/14/2025 albuterol (PROVENTIL) (2.5 MG/3ML) 0.083% nebulizer solution Take 2.5 mg by nebulization Every 6 (Six) Hours As Needed for Wheezing. albuterol sulfate HFA 108 (90 Base) MCG/ACT inhaler Inhale 2 puffs Every 4 (Four) Hours As Needed for Wheezing. atorvastatin (LIPITOR) 80 MG tablet Take 1 tablet by mouth Every Night. 30 tablet 04/14/2025 esomeprazole (nexIUM) 40 MG capsule Take 1 capsule by mouth Every Morning Before Breakfast. Fluticasone-Umecl idin-Vilant (Trelegy Ellipta) 100-62.5-25 MCG/ACT inhaler Inhale 1 puff Daily. insulin glargine (LANTUS, SEMGLEE) 100 UNIT/ML injection Inject 50 Units under the skin into the appropriate area as directed Every Night. Insulin Lispro (humaLOG) 100 UNIT/ML injection Inject 15 Units under the skin into the appropriate area as directed 3 (Three) Times a Day Before Meals. isosorbide mononitrate (IMDUR) 60 MG 24 hr tablet Take 1 tablet by mouth Daily. metoprolol succinate XL (TOPROL-XL) 25 MG 24 hr tablet Take 1 tablet by mouth Daily. polyethylene glycol (MIRALAX) 17 g packet Take 17 g by mouth Daily As Needed (Use if senna-docusate is ineffective). 04/14/2025 Semaglutide,0.25 or 0.5MG/DOS, (OZEMPIC) 2 MG/1.5ML solution pen-injector Inject 0.25 mg under the skin into the appropriate area as directed 1 (One) Time Per Week. spironolactone (ALDACTONE) 25 MG tablet Take 1 tablet by mouth Daily. ticagrelor (BRILINTA) 90 MG tablet tablet Take 1 tablet by mouth 2 (Two) Times a Day. 60 tablet 04/14/2025 aspirin 81 MG chewable tablet Chew 1 tablet Daily for 21 days. OTC x 21 days along with Brilinta. Then Brilinta monotherapy. 04/15/2025 5 doxycycline (MONODOX) 100 MG capsuleIndication s:Pneumonia Take 1 capsule by mouth Every 12 (Twelve) Hours for 6 doses. Indications: Pneumonia 6 capsule 04/14/2025 5 documented as of this encounter Progress Notes * Martin Duong MD - 04/13/2025 9:22 PM EDT Pulmonary Consult LOS: 1 day Patient Care Team: Eben Liu MD as PCP - General (Adolescent Medicine) Chief Complaint: Syncope Subjective 64 y.o. former smoker quit in 2001 with history of HTN, HLD, T2DM, RA, rheumatoid arthritis associated ILD, on CellCept and Rituxan, chronic hypoxemic respiratory failure on 2 to 4 L home oxygen, previously referred to transplant although patient reports she has not interested in transplant, ANDRES intolerant of CPAP, admitted 04/12/2025 after a near syncopal episode at home [facility] facility due to concern for possible stroke.Patient reports she has had 4 or 5 days of neck pain and developed sudden onset of dizziness accompanied by headache and transient partial vision loss. Interval History: Patient is doing better. I was able to obtain prior CT images from [facility] and her current scan is essentially identical with no new abnormality. She is on her baseline home oxygen with adequate oxygensaturations. No significant respiratory complaints. She is hoping to go home soon. History taken from: Patient, chart PMH/FH/Social History were reviewed and updated appropriately in the electronic medical record. Past Medical History: Diagnosis Date Arthritis Asthma COPD (chronic obstructive pulmonary disease) Diabetes mellitus Hyperlipidemia Hypertension Interstitial lung disease with RH factor Murmur Osteoarthritis Rheumatoid arthritis Sleep apnea Smoker Past Surgical History: Procedure Laterality Date APPENDECTOMY CARDIAC CATHETERIZATION HYSTERECTOMY TUBAL ABDOMINAL LIGATION Bilateral History reviewed. No pertinent family history. Social History Socioeconomic History Marital status: Tobacco Use Smoking status: Former Current packs/day: 0.00 Average packs/day: 2.0 packs/day for 24.0 years (48.0 ttl pk-yrs) Types: Cigarettes Start date: 1977 Quit date: 2001 Years since quittin.6 Smokeless tobacco: Never Vaping Use Vaping status: Never Used Substance and Sexual Activity Alcohol use: Never Drug use: Never Sexual activity: Defer Review of Systems: Review of 14 systems was completed with positives and pertinent negatives noted in the subjective section. All other systems reviewed and are negative. Objective Vital Signs Temp: [97.6 ??F (36.4 ??C)-97.8 ??F (36.6 ??C)] 97.6 ??F (36.4 ??C) Heart Rate: [73-92] 73 Resp: [16-18] 18 BP: (106-147)/(52-91) 126/74 08/05 0701 - 08/06 0700 In: 1000 [I.V.:1000] Out: - Body mass index is 33.32 kg/m??. IV drips: Physical Exam: Constitutional: Alert, in no acute distress Head: Normocephalic, atraumatic Eyes: Lids and lashes normal, conjunctivae and sclerae normal. PER ENMT: Ears appear intact with no abnormalities noted Lips normal. Neck: Trachea midline, no JVD Lungs/Resp: Normal effort, symmetric chest rise Heart/CV: Regular rhythm and normal rate, no murmur Abdomen/GI: Nondistended : Deferred Extremities/MSK: No clubbing or cyanosis. No edema. Pulses: Pulses palpable and equal bilaterally Skin: No bleeding, bruising or rash Heme/Lymph: Neurologic: Psychiatric: Moves all extremities with no obvious focal motor deficit. Cranial nerves 2 - 12 grossly intact Non-agitated, normal affect. The above physical exam findings were reviewed and reflect my exam findings as of today's exam. Electronically signed by: Martin Duong MD 04/13/25 21:22 EDT Results Review: I reviewed the patient's new clinical results. Results from last 7 days Lab Units 04/13/25 0821 04/12/25 0454 SODIUM mmol/L 140 130* POTASSIUM mmol/L 4.3 3.9 CHLORIDE mmol/L 104 95* CO2 mmol/L 23.0 22.0 BUN mg/dL 12.0 9.7 CREATININE mg/dL 0.58 0.59 CALCIUM mg/dL 8.5* 9.3 BILIRUBIN mg/dL -- 0.3 ALK PHOS U/L -- 128* ALT (SGPT) U/L -- 13 AST (SGOT) U/L -- 13 GLUCOSE mg/dL 84 265* Results from last 7 days Lab Units 04/13/25 0821 04/12/25 0454 WBC 10*3/mm3 22.49* 20.49* HEMOGLOBIN g/dL 11.8* 13.1 HEMATOCRIT % 36.9 42.1 PLATELETS 10*3/mm3 385 418 Results from last 7 days Lab Units 04/12/25 0428 PH, ARTERIAL pH units 7.404 PO2 ART mm Hg 147.0* PCO2, ARTERIAL mm Hg 42.1 HCO3 ART mmol/L 26.3* Results from last 7 days Lab Units 04/12/25 1748 04/12/25 0904 04/12/25 0454 MAGNESIUM mg/dL 2.2 1.6 1.7 PHOSPHORUS mg/dL -- -- 2.3* I reviewed the patient's new imaging including images and reports. I compared current CT scan with prior CT scan from 2023 and there has been no significant change inbilateral interstitial disease. CTA of the chest 04/12/2025 showed no evidence of pulmonary embolism. Chest x-ray 04/12/2025 shows cardiomegaly with moderate bilateral diffuse interstitial disease. CTA of the head and neck from April 11, 2025 reviewed and shows bilateral groundglass interstitial disease Medication Review: Albuterol Sulfate NEB Orderable, 2.5 mg, Nebulization, Q6H - RT aspirin, 81 mg, Oral, Daily Or aspirin, 300 mg, Rectal, Daily atorvastatin, 80 mg, Oral, Nightly budesonide-formoterol, 2 puff, Inhalation, BID - RT And revefenacin, 175 mcg, Nebulization, Daily - RT doxycycline, 100 mg, Oral, Q12H famotidine, 40 mg, Oral, Daily insulin glargine, 40 Units, Subcutaneous, Daily insulin lispro, 2-7 Units, Subcutaneous, 4x Daily AC & at Bedtime isosorbide mononitrate, 60 mg, Oral, Daily metoprolol succinate XL, 25 mg, Oral, Daily spironolactone, 25 mg, Oral, Daily ticagrelor, 90 mg, Oral, BID Assessment & Plan Transient neurological symptoms Chronic respiratory failure with hypoxia Primary hypertension Type 2 diabetes mellitus, with long-term current use of insulin 64 y.o. former smoker quit in 2001 with history of HTN, HLD, T2DM, RA, rheumatoid arthritis associated ILD, on CellCept and Rituxan, chronic hypoxemic respiratory failure on 2 to 4 L home oxygen, previously referred to transplant although patient reports she has not interested in transplant, ANDRES intolerant of CPAP, admitted 04/12/2025 after a near syncopal episode at home [facility] our facility due to concern for possible stroke.Patient reports she has had 4 or 5 days of neck pain and developed sudden onset of dizziness accompanied by headache and transient partial vision loss. Patient currently does not have any neurologic deficit. MRI of the brain is pending. Oxygen saturations are upper 90s on 2 L. Echocardiogram shows normal LVEF with negative bubble study for shunt, moderate aortic stenosis, RVSP was only 13 mmHg. CTA without pulmonary embolism and has stable interstitial disease. Plan: 1. For syncopal event: For completeness, obtain CT angiogram to evaluate for pulmonary embolism. 2. For ILD: Try to get old CT images from [facility] for comparison. Patient has rheumatoid arthritis associated ILD getting therapy with CellCept and Rituxan. She is at baseline and is satting upper 90s on baseline 2 L oxygen. I compared current CTA to prior 2023 CT chest and there is stable interstitial disease. 3. For possible stroke: Stroke service following. No acute ischemia on MRI patient did have tiny old lacunar infarct left thalamus. 4. For ANDRES intolerant of CPAP: Recommended CPAP compliance. If patient is completely intolerant could consider oral appliance, defer to primary sleep provider Will sign off. Call with questions. Okay for discharge from pulmonary standpoint. Electronically signed by: Martin Duong MD 04/13/25 21:22 EDT *. Please note that portions of this note were completed with [employer] - a voice recognition program. * Tevin Lees MD - 04/13/2025 5:37 PM EDT Images from the original note were not included. [facility] Medicine Services PROGRESS NOTE Patient Name: Karyn Sanz : 1960 Date of Admission: 04/12/2025 Primary Care Physician: Eben Liu MD Subjective Subjective CC: dizziness HPI: Saw patient this AM. Says she feels ok. Breathing is ok. Objective Objective Vital Signs: Temp: [97.6 ??F (36.4 ??C)-97.8 ??F (36.6 ??C)] 97.8 ??F (36.6 ??C) Heart Rate: [77-92] 83 Resp: [16-18] 18 BP: (106-147)/(52-91) 147/91 Flow (L/min) (Oxygen Therapy): [2-3] 2 Physical Exam: Constitutional: No acute distress, awake, alert HENT: NCAT, mucous membranes moist Respiratory: Clear to auscultation bilaterally, respiratory effort normal on 3LNC Cardiovascular: RRR, no murmurs, rubs, or gallops Gastrointestinal: Positive bowel sounds, soft, nontender, nondistended Musculoskeletal: No bilateral ankle edema Psychiatric: Appropriate affect, cooperative Neurologic: Oriented x 3, CLEARY, speech clear Skin: No rashes Results Reviewed: LAB RESULTS: Lab 04/13/25 0821 04/12/25 1412 04/12/25 1122 04/12/25 0904 04/12/25 0454 WBC 22.49* -- -- -- 20.49* HEMOGLOBIN 11.8* -- -- -- 13.1 HEMATOCRIT 36.9 -- -- -- 42.1 PLATELETS 385 -- -- -- 418 NEUTROS ABS -- -- -- -- 17.18* IMMATURE GRANS (ABS) -- -- -- -- 0.11* LYMPHS ABS -- -- -- -- 2.57 MONOS ABS -- -- -- -- 0.59 EOS ABS -- -- -- -- 0.00 MCV 88.5 -- -- -- 90.5 LACTATE -- 2.5* 3.4* 3.4* 2.6* PROTIME -- -- -- -- 14.1 HSTROP T -- -- -- <6 <6 Lab 04/13/25 0821 04/12/25 1748 04/12/25 0904/12/25 0454 SODIUM 140 -- -- 130* POTASSIUM 4.3 -- -- 3.9 CHLORIDE 104 -- -- 95* CO2 23.0 -- -- 22.0 ANION GAP 13.0 -- -- 13.0 BUN 12.0 -- -- 9.7 CREATININE 0.58 -- -- 0.59 EGFR 99.9 -- -- 99.5 GLUCOSE 84 -- -- 265* CALCIUM 8.5* -- -- 9.3 MAGNESIUM -- 2.2 1.6 1.7 PHOSPHORUS -- -- -- 2.3* HEMOGLOBIN A1C -- -- -- 7.57* Lab 04/12/25 0454 TOTAL PROTEIN 6.9 ALBUMIN 3.5 GLOBULIN 3.4 ALT (SGPT) 13 AST (SGOT) 13 BILIRUBIN 0.3 ALK PHOS 128* Lab 04/13/25 0821 04/12/25 0904 04/12/25 0454 PROBNP 170.9 -- -- HSTROP T -- <6 <6 PROTIME -- -- 14.1 INR -- -- 1.02 Lab 04/12/25 0454 CHOLESTEROL 159 LDL CHOL 100 HDL CHOL 48 TRIGLYCERIDES 55 Lab 04/12/25 0428 PH, ARTERIAL 7.404 PCO2, ARTERIAL 42.1 PO2 ART 147.0* FIO2 32 HCO3 ART 26.3* BASE EXCESS ART 1.3 CARBOXYHEMOGLOBIN 0.7 Brief Urine Lab Results (Last result in the past 365 days) Color Clarity Blood Leuk Est Nitrite Protein CREAT Urine HCG 04/12/25 0648 Yellow Clear Negative Negative Negative Negative Microbiology Results Abnormal Procedure Component Value - Date/Time Respiratory Panel PCR w/COVID-19(SARS-CoV-2) ELSA/GREGORY/JASMIN/PAD/COR/CLAUDETTE In-House, GEAR DESIGN ENGINEER Swab in UTM/VTM, 2 HR TAT - Swab, Nasopharynx [[id number]] (Abnormal) Collected: 04/12/25558 Lab Status: Final result Specimen: Swab from Nasopharynx Updated: 04/12/25857 ADENOVIRUS, PCR Not Detected Coronavirus 229E Not Detected Coronavirus HKU1 Not Detected Coronavirus NL63 Not Detected Coronavirus OC43 Not Detected COVID19 Not Detected Human Metapneumovirus Not Detected Human Rhinovirus/Enterovirus Detected Influenza A PCR Not Detected Influenza B PCR Not Detected Parainfluenza Virus 1 Not Detected Parainfluenza Virus 2 Not Detected Parainfluenza Virus 3 Not Detected Parainfluenza Virus 4 Not Detected RSV, PCR Not Detected Bordetella pertussis pcr Not Detected Bordetella parapertussis PCR Not Detected Chlamydophila pneumoniae PCR Not Detected Mycoplasma pneumo by PCR Not Detected Narrative: In the setting of a positive respiratory panel with a viral infection PLUS a negative procalcitoninwithout other underlying concern for bacterial infection, consider observing off antibiotics or discontinuation of antibiotics and continue supportive care. If the respiratory panel is positive for atypical bacterial infection (Bordetella pertussis, Chlamydophila pneumoniae, or Mycoplasma pneumoniae), consider antibiotic de-escalation to target atypical bacterial infection. MRI Brain Without Contrast Result Date: 04/13/2025 MRI BRAIN WO CONTRAST Date of Exam: 04/13/2025 1:17 AM EDT Indication: Stroke, follow up Rule out stroke symptoms dizziness syncopal episode. Comparison: Outside head CT 04/11/2025 Technique: Routine multiplanar/multisequence sequence images of the brain were obtained without contrast administration. Findings: Diffusion images reveal no acute or subacute ischemia. There is generalized atrophy. There is a tiny old lacunar infarct in the left thalamus. White matter signal is essentially normal for patient age without significant small vessel ischemic disease. No acute hemorrhage is identified. Craniocervical junction is normal. Pituitary unremarkable. No masses are identified. Major intracranial f low voids are maintained. Impression: 1.No acute or subacute ischemia. No acute hemorrhage. 2.Tiny old lacunar infarct left thalamus. 3.Mild age-appropriate atrophy. Electronically Signed: Jason Flores MD 04/13/2025 2:53 AM EDT Workstation ID: [id number] CT Angiogram Chest Result Date: 04/12/2025 CT ANGIOGRAM CHEST Date of Exam: 04/12/2025 4:48 PM EDT Indication: near syncope. Comparison: None available. Technique: CTA of the chest was performed before and after the uneventful intravenous administration of 80 cc [id number]. Reconstructed coronal and sagittal images were also obtained. In addition, a 3-D volume rendered image was created for interpretation. Automated exposure control and iterative reconstruction methods were used. Findings: PULMONARY VASCULATURE: Pulmonary arteries are widely patent without evidence of embolus. Main pulmonary artery is mildly enlarged measuring 3.3 cm indiameter suggesting pulmonary arterial hypertension. MEDIASTINUM: There are aortic valvular calcific ations. There is minimal calcification of the mitral valve annulus. Aortic and heart size are normal. No aortic dissection identified. No mass nor pericardial effusion. CORONARY ARTERIES: No calcified atherosclerotic disease. LUNGS: No consolidation or suspicious nodule. There is cylindrical bronchiectasis mild in severity with areas of nonspecific reticular interstitial prominence and a degree of central to lower lung fibrosis peripherally. PLEURAL SPACE: No effusion, mass, nor pneumothorax. LYMPH NODES: There are no pathologically enlarged lymph nodes. UPPER ABDOMEN: Unremarkable OSSEOUS STRUCTURES: Appropriate for age with no acute process identified. Impression: Impression: 1.No evidence of pulmonary embolism nor other acute cardiopulmonary process. 2.Nonspecific interstitial lung changes with a degree of fibrosis most pronounced in the peripheryof the lung bases. Electronically Signed: Artem Fox MD 04/12/2025 5:13 PM EDT Workstation ID: [id number] XR Chest 1 View Result Date: 04/12/2025 XR CHEST 1 VW Date of Exam: 04/12/2025 6:24 AM EDT Indication: cough Comparison: None available. Findings: Mildly enlarged cardiac silhouette. Scattered interstitial coarsening with interspersed airspace opacities, for example in the right lateral midlung. No sizable pleural effusion. No pneumothorax. Osseous structures are grossly unremarkable. Impression: Impression: Scattered interstitial coarsening with interspersed airspace opacities, which could reflect pneumonia with possible component of underlying chronic lung disease. Pulmonary edema is a less likely differential consideration. No prior exams available for comparison. Electronically Signed: Aris Chávez MD 04/12/2025 7:12 AM EDT Workstation ID: [id number] Results for orders placed during the hospital encounter of 04/12/25 Adult Transthoracic Echo Complete W/ Cont if Necessary Per Protocol (With Agitated Saline) 04/12/2025 1:49 PM Interpretation Summary Left ventricular systolic function is hyperdynamic (EF > 70%). Calculated left ventricular EF = 74.2% Left ventricular diastolic function is consistent with (grade I) impaired relaxation. Saline test results are negative. Moderate aortic valve stenosis is present. Aortic valve area is 1.2 cm2. Peak velocity of the flow distal to the aortic valve is 305.4 cm/s. Aortic valve maximum pressure gradient is 37 mmHg. Aortic valve mean pressure gradient is 19 mmHg. Aortic valve dimensionless indexis 0.42 . Estimated right ventricular systolic pressure from tricuspid regurgitation is normal (<35 mmHg).Calculated right ventricular systolic pressure from tricuspid regurgitation is 13 mmHg. Current medications: Scheduled Meds:Albuterol Sulfate NEB Orderable, 2.5 mg, Nebulization, Q6H - RT aspirin, 81 mg, Oral, Daily Or aspirin, 300 mg, Rectal, Daily atorvastatin, 80 mg, Oral, Nightly budesonide-formoterol, 2 puff, Inhalation, BID - RT And revefenacin, 175 mcg, Nebulization, Daily - RT doxycycline, 100 mg, Oral, Q12H famotidine, 40 mg, Oral, Daily insulin glargine, 40 Units, Subcutaneous, Daily insulin lispro, 2-7 Units, Subcutaneous, 4x Daily AC & at Bedtime isosorbide mononitrate, 60 mg, Oral, Daily metoprolol succinate XL, 25 mg, Oral, Daily spironolactone, 25 mg, Oral, Daily ticagrelor, 90 mg, Oral, BID Continuous Infusions: PRN Meds:. acetaminophen OR acetaminophen OR acetaminophen senna-docusate sodium AND polyethylene glycol AND bisacodyl AND bisacodyl Calcium Replacement - Follow Nurse / BPA Driven Protocol dextrose dextrose glucagon (human recombinant) Magnesium Cardiology Dose Replacement - Follow Nurse / BPA Driven Protocol Morphine AND naloxone nitroglycerin ondansetron ondansetron ODT Phosphorus Replacement - Follow Nurse / BPA Driven Protocol Potassium Replacement - Follow Nurse / BPA Driven Protocol Assessment & Plan Assessment & Plan Active Hospital Problems Diagnosis POA Transient neurological symptoms [R29.818] Unknown Chronic respiratory failure with hypoxia [J96.11] Yes Primary hypertension [I10] Yes Type 2 diabetes mellitus, with long-term current use of insulin [E11.9, Z79.4] Not Applicable Resolved Hospital Problems Diagnosis Date Resolved POA Stroke [I63.9] 04/13/2025 Yes Brief Hospital Course to date: Karyn Sanz is a 64 y.o. 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 Tylenol and IV morphine PRN - A1C 7.57 Total chol 159 HDL 48 LDL 100 - stroke neuro following. Recs asa and change plavix to Brilinta (d/t plavix nonresponder, P2Y12 215) x 21 days, then Brilinta only indefinite. Increased lipitor to 80mg. Normotension - f/u stroke clinic in 6-8 weeks HTN - normotensive goals per neuro Chronic hypoxic respiratory failure // history of RA-ILD on home oxygen /: 2L nc at rest & 4L nc with exertion, ANDRES intermittent compliance with CPAP therapy. Patient previously referred to lung transplantation clinic. +Rhinovirus Possible CAP - Continue supplemental oxygen at dose 3 L to maintain O2 sat greater than 94% - Resume home dose inhalers: [id number] + albuterol nebulization [id number] - Recommend 6-minute walk prior to hospital discharge - resume CPAP at night; titrate per RT protocol to maintain O2 sat greater than 94% with sleeping - seen by pulmonary -Home medications: Currently on Rituximab every 4 months (2 g, RA dosing) + Myfortic 720 mg BID - palliative care met with patient today and decided for DNR, palliative care signed off - on abx for possible CAP. Denies cough/soa. Pulmonary following thinks may be at baseline. OrderedCTA chest which showed no PE, nonspecific interstitial lung changes with a degree of fibrosis most pronounced at the bases - seen by cardiology d/t advanced atherosclerosis. Recs improved LDL control, recs needs screening for LP (a) if not done before. Recs to consider Carotid duplex to assess vertebrals/will order. Recsconsider outpatient event monitor with primary agricultural researcher T2DM // insulin-dependent - Insulin sliding scale per hospitalization protocol // patient hyperglycemic on admission fingerstick 333 - Resume home dose basal insulin: Lantus 40 units every morning - A1c 7.57 - Inpatient nutrition consult and inpatient chemical educator consult. Leukocytosis // elevated lactate 2.6 - looks to be chronic, can see 17-20K wbc as far back as 2020 -UA ok. Follow cultures -CXR shows scattered interstitial coarsening with interspersed airspace opacities could reflect pnawith possible component underlying - s/p Gentle IV fluid hydration -Patient is immunocompromise due to her RA and ILD, therefore continue doxy for CAP Expected Discharge Location and Transportation: dc home in AM Expected Discharge Expected Discharge Date: 04/14/2025; Expected Discharge Time: VTE Prophylaxis: Mechanical VTE prophylaxis orders are present. AM-PAC 6 Clicks Score (PT): 24 (04/12/25 3612) CODE STATUS: Code Status and Medical Interventions: No CPR (Do Not Attempt to Resuscitate); Limited Support; No intubation (DNI) Ordered at: 04/12/25 8702 Code Status (Patient has no pulse and is not breathing): No CPR (Do Not Attempt to Resuscitate) Medical Interventions (Patient has pulse or is breathing): Limited Support Medical Intervention Limits: No intubation (DNI) Level Of Support Discussed With: Patient Tevin Lees MD 04/13/25 * Angy Dc, [facility] - 04/13/2025 8:39 AM EDT Stroke Progress Note Chief Complaint: Left-sided headache with dizziness and blurred vision Subjective Subjective Subjective: No acute events overnight. Patient is currently sitting in the bed, she is receiving antibiotics for her pneumonia. She denies any recurrent or new strokelike symptoms. She tells me approximately 5 days prior to admission her primary care had adjusted her blood pressure medications and she feels that that had something to do with her event. She tells me when she had her stroke 3 years ago that she did have some residual memory problems that resolved and a right facial droop. Objective Temp: [96.8 ??F (36 ??C)-97.8 ??F (36.6 ??C)] 97.8 ??F (36.6 ??C) Heart Rate: [77-106] 77 Resp: [16-18] 18 BP: (106-147)/(52-84) 114/84 Objective Neurological Exam Mental Status Alert. Oriented to person, place, time and situation. Oriented to person, place, and time. Speech is normal. Language is fluent with no aphasia. Attention and concentration are normal. Cranial Nerves CN II: Visual scott full to confrontation. CN III, IV, : Extraocular movements intact bilaterally. Pupils equal round and reactive to light bilaterally. CN V: Facial sensation is normal. CN VII: Right: There is central facial weakness. CN VIII: Hearing intact bilaterally. CN XII: Tongue midline without atrophy or fasciculations. Motor Normal muscle bulk throughout. Normal muscle tone. Strength is 5/5 throughout all four extremities. Sensory Sensation is intact to light touch, pinprick, vibration and proprioception in all four extremities. Coordination No obvious dysmetria noted. Gait Not observed. Physical Exam Vitals and nursing note reviewed. Constitutional: General: She is not in acute distress. Appearance: She is not ill-appearing. HENT: Head: Normocephalic. Mouth/Throat: Mouth: Mucous membranes are moist. Eyes: Extraocular Movements: Extraocular movements intact. Pupils: Pupils are equal, round, and reactive to light. Cardiovascular: Rate and Rhythm: Normal rate and regular rhythm. Pulmonary: Effort: Pulmonary effort is normal. No respiratory distress. Comments: On nasal cannula Musculoskeletal: Right lower leg: No edema. Left lower leg: No edema. Skin: General: Skin is warm and dry. Neurological: Mental Status: She is alert and oriented to person, place, and time. Cranial Nerves: Cranial nerve deficit present. Motor: Motor strength is normal. Psychiatric: Mood and Affect: Mood normal. Speech: Speech normal. Behavior: Behavior normal. Results Review: I reviewed the patient's new clinical results. WBC Date Value Ref Range Status 04/12/2025 20.49 (H) 3.40 - 10.80 10*3/mm3 Final Hemoglobin Date Value Ref Range Status 04/12/2025 13.1 12.0 - 15.9 g/dL Final Hematocrit Date Value Ref Range Status 04/12/2025 42.1 34.0 - 46.6 % Final Platelets Date Value Ref Range Status 04/12/2025 418 140 - 450 10*3/mm3 Final Lab Results Component Value Date GLUCOSE 265 (H) 04/12/2025 BUN 9.7 04/12/2025 CREATININE 0.59 04/12/2025 NA 130 (L) 04/12/2025 K 3.9 04/12/2025 CL 95 (L) 04/12/2025 CALCIUM 9.3 04/12/2025 PROTEINTOT 6.9 04/12/2025 ALBUMIN 3.5 04/12/2025 ALT 13 04/12/2025 AST 13 04/12/2025 ALKPHOS 128 (H) 04/12/2025 BILITOT 0.3 04/12/2025 GLOB 3.4 04/12/2025 AGRATIO 1.0 04/12/2025 BCR 16.4 04/12/2025 ANIONGAP 13.0 04/12/2025 EGFR 99.5 04/12/2025 -A1c from 04/12/2025 was 7.57% -LDL from 04/12/2025 was 100 -P2 Y12 level was 215 on 04/12/2025 MRI Brain Without Contrast Result Date: 04/13/2025 1.No acute or subacute ischemia. No acute hemorrhage. 2.Tiny old lacunar infarct left thalamus. 3.Mild age-appropriate atrophy. Electronically Signed: Jason Flores MD 04/13/2025 2:53 AM EDT Workstation ID: [id number] CT Angiogram Chest Result Date: 04/12/2025 Impression: 1.No evidence of pulmonary embolism nor other acute cardiopulmonary process. 2.Nonspecific interstitial lung changes with a degree of fibrosis most pronounced in the periphery of the lungbases. Electronically Signed: Artem Fox MD 04/12/2025 5:13 PM EDT Workstation ID: [id number] XR Chest 1 View Result Date: 04/12/2025 Impression: Scattered interstitial coarsening with interspersed airspace opacities, which could reflect pneumonia with possible component of underlying chronic lung disease. Pulmonary edema is a lesslikely differential consideration. No prior exams available for comparison. Electronically Signed: Lore Chávez MD 04/12/2025 7:12 AM EDT Workstation ID: [id number] Results for orders placed during the hospital encounter of 04/12/25 Adult Transthoracic Echo Complete W/ Cont if Necessary Per Protocol (With Agitated Saline) 04/12/2025 1:49 PM Interpretation Summary Left ventricular systolic function is hyperdynamic (EF > 70%). Calculated left ventricular EF = 74.2% Left ventricular diastolic function is consistent with (grade I) impaired relaxation. Saline test results are negative. Moderate aortic valve stenosis is present. Aortic valve area is 1.2 cm2. Peak velocity of the flow distal to the aortic valve is 305.4 cm/s. Aortic valve maximum pressure gradient is 37 mmHg. Aortic valve mean pressure gradient is 19 mmHg. Aortic valve dimensionless indexis 0.42 . Estimated right ventricular systolic pressure from tricuspid regurgitation is normal (<35 mmHg).Calculated right ventricular systolic pressure from tricuspid regurgitation is 13 mmHg. -CTH wo (OSH 04/11/2025) is negative for acute ischemic or hemorrhagic stroke. 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 There is concern for left PICA occlusion. Assessment/Plan This is 64-year-old white female, right-handed with known medical diagnoses of essential hypertension, hyperlipidemia, diabetes mellitus type 2, COPD, ANDRES (noncompliant with CPAP), remote left thalamic stroke (no residual), and remote tobacco abuse who presented to [facility] ED for headachewith blurry vision, dizziness, and syncopal episode which occurred at 1200 patient had improvement of symptoms with migraine cocktail. Patient was not a candidate for IV thrombolytic therapy or mechanical thrombectomy in the setting of no focality and suspicion of migraine complex, however in the setting of multifocal intracranial stenosis and occlusion of posterior circulation, patient was accept ed to our facility for full stroke workup and higher level of care. Antiplatelet MATH AND PHYSICS INSTRUCTOR: Aspirin 81 mg Anticoagulant MATH AND PHYSICS INSTRUCTOR: None #Presyncopal event #Dizziness, improved #Left sided headache with left blurry vision, improved #Incidental finding on CTA head and neck of chronic occlusion of the right vert #Concern for an acute occlusion of the left MD OPHTHALMOLOGIST -Etiology of patient's symptoms could be 2/2 TIA given intracranial atherosclerotic disease versus hypertensive emergency versus complex migraine -MRI brain without contrast is negative for new stroke; chronic left thalamic stroke noted -P2Y12 215 indicating inadequate responsiveness, will change to Brilinta 90mg BID -Continue aspirin 81 mg for 21 days then continue Brilinta monotherapy indefinitely -Activity as tolerated, fall risk precautions -PT/OT recommend home with family at DC -Okay for Tylenol 650 p.o. or rectal for headache pain mild to moderate -Follow-up with agricultural researcher as if it may have been related to atherosclerotic disease versus hypertensive emergency -Stroke clinic follow-up in 6-8 weeks (added to ADT) #Essential hypertension, complicated by hypertensive emergency -Target systolic blood pressure goals of normotension #Hyperlipidemia -LDL on admission 100, goal <70 -Atorvastatin 80mg nightly #Diabetes Mellitus type 2 -A1c on admission, 7.57, goal <7 -Maintain euglycemia -Management per primary team -chemical educator to meet with patient prior to DC # Obstructive sleep apnea -Patient reports she does not wear her CPAP at home, her limo driver is aware -We discussed how untreated ANDRES contributes to resistant hypertension and inability to lose weight -I have encouraged her to follow-up with her limo driver to discuss other options #Obesity -BMI 33.30 -Complicated aspects of care - Encourage patient to eat a heart healthy diet # Pneumonia - Management per primary team Plan of care was discussed with patient, Dr. Lees (hospitalist), and Dr. Stella Mott (vascular neurology). From a neurological standpoint the patient can be discharged home when cleared by primary team. Stroke neurology will sign off for now. Please call with any questions or concerns. Discussed the importance of medication compliance Aspirin 81mg daily, Brilinta 90mg twice daily, and Atorvastatin 80mg nightly and lifestyle modifications adequate control of blood pressure, adequatecontrol of cholesterol (goal LDL <70), adequate control of glucose (<140, A1c goal <7), increased physical activity, compliance with CPAP therapy, and implementation of healthy diet to help reduce the risk of future cerebrovascular events. Also discussed the signs symptoms that would warrant the patient return back to the emergency department including unilateral weakness, unilateral numbness, visual disturbances, loss of balance, speech difficulties, and/or a sudden severe headache. Patient verbalizes understanding. Angy Dc MSN, [facility], [facility] AN- Stroke Neurology * Tevin Lees MD - 04/12/2025 3:32 PM EDT Images from the original note were not included. [facility] Medicine Services ADMISSION FOLLOW-UP NOTE Patient admitted after midnight, H&P by my partner performed earlier on today's date reviewed. Interim findings, labs, and charting also reviewed. [facility] Problem List has been managed and updated to include any new diagnoses: Active Hospital Problems Diagnosis POA Stroke [I63.9] Yes Chronic respiratory failure with hypoxia [J96.11] Yes Primary hypertension [I10] Yes Type 2 diabetes mellitus, with long-term current use of insulin [E11.9, Z79.4] Not Applicable Resolved Hospital Problems No resolved problems to display. ADDITIONAL PLAN: - detailed assessment and plan from admission reviewed Karyn Sanz is a 64 y.o. 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 Tylenol and IV morphine PRN - A1C 7.57 Total chol 159 HDL 48 LDL 100 - stroke neuro following. Recs asa and plavix x 21 days, then plavix only indefinite. Increase lipitor to 80mg. Normotension HTN - normotensive goals per neuro Chronic hypoxic respiratory failure // history of RA-ILD on home oxygen 24/7: 2L nc at rest & 4L nc with exertion, ANDRES intermittent compliance with CPAP therapy. Patient previously referred to lung transplantation clinic. +Rhinovirus Possible CAP - Continue supplemental oxygen at dose 3 L to maintain O2 sat greater than 94% - Resume home dose inhalers: [id number] + albuterol nebulization [id number] - Recommend 6-minute walk prior to hospital discharge - resume CPAP at night; titrate per RT protocol to maintain O2 sat greater than 94% with sleeping - Consult the pulmonary team in the morning for further management and recommendations -Home medications: Currently on Rituximab every 4 months (2 g, RA dosing) + Myfortic 720 mg BID - palliative care met with patient today and decided for DNR, palliative care signed off - on abx for possible CAP. Denies cough/soa. Pulmonary following thinks may be at baseline. OrderedCTA chest T2DM // insulin-dependent - Insulin sliding scale per hospitalization protocol // patient hyperglycemic on admission fingerstick 333 - Resume home dose basal insulin: Lantus 40 units every morning - A1c 7.57 - Inpatient nutrition consult and inpatient chemical educator consult. Leukocytosis // elevated lactate 2.6 - looks to be chronic, can see 17-20K wbc as far back as 2020 -UA ok. Follow cultures -CXR shows scattered interstitial coarsening with interspersed airspace opacities could reflect pnawith possible component underlying - s/p Gentle IV fluid hydration -Patient is immunocompromise due to her RA and ILD, therefore will start empiric IV abxs for CAP //de-escalate antibiotics when micro cultures return Expected Discharge Expected Discharge Date: 04/15/2025; Expected Discharge Time: Tevin Lees MD 04/12/25 * Lele Rothman MD - 04/12/2025 1:52 PM EDT Stroke Progress Note Chief Complaint: Left-sided headache with dizziness and blurred vision Subjective Subjective Subjective: The patient is lying down in the bed in NAD. Patient was at the bedside. The patient statedthat she is doing better today compared to yesterday. Denies having any new stroke or strokelike symptoms. I discussed with the patient and her the imaging finding what could possibly explainher symptoms. We also discussed potential management plan moving forward. All patient's questions and concerns were answered. No other acute complains at this time Review of Systems Neurological: Negative for tremors. Objective Temp: [96.8 ??F (36 ??C)-97.6 ??F (36.4 ??C)] 96.8 ??F (36 ??C) Heart Rate: [95-106] 95 Resp: [18-22] 18 BP: (147-184)/(72-92) 147/72 Objective GEN: lying in bed; in NAD HENT: normocephalic, non-erythematous oropharynx CV: no LE edema NEURO: Mental Status: A&O x 3, interactive, able to follow commands Speech: Intact Articulation CN 2-12: II - PERRLA III, IV, - EOMI V - Facial sensation intact VII -no gross facial asymmetry VIII - Auditory acuity intact XII - Tongue protrudes midline Motor: The patient can move all 4 extremities against gravity with no drift appreciated Sensory: intact light touch throughout Coordination: no ataxia with [id number] testing Gait/Station: deferred Results Review: I reviewed the patient's new clinical results. WBC Date Value Ref Range Status 04/12/2025 20.49 (H) 3.40 - 10.80 10*3/mm3 Final RBC Date Value Ref Range Status 04/12/2025 4.65 3.77 - 5.28 10*6/mm3 Final Hemoglobin Date Value Ref Range Status 04/12/2025 13.1 12.0 - 15.9 g/dL Final Hematocrit Date Value Ref Range Status 04/12/2025 42.1 34.0 - 46.6 % Final MCV Date Value Ref Range Status 04/12/2025 90.5 79.0 - 97.0 fL Final MCH Date Value Ref Range Status 04/12/2025 28.2 26.6 - 33.0 pg Final MCHC Date Value Ref Range Status 04/12/2025 31.1 (L) 31.5 - 35.7 g/dL Final RDW Date Value Ref Range Status 04/12/2025 12.3 12.3 - 15.4 % Final RDW-SD Date Value Ref Range Status 04/12/2025 40.8 37.0 - 54.0 fl Final MPV Date Value Ref Range Status 04/12/2025 10.2 6.0 - 12.0 fL Final Platelets Date Value Ref Range Status 04/12/2025 418 140 - 450 10*3/mm3 Final Neutrophil % Date Value Ref Range Status 04/12/2025 83.9 (H) 42.7 - 76.0 % Final Lymphocyte % Date Value Ref Range Status 04/12/2025 12.5 (L) 19.6 - 45.3 % Final Monocyte % Date Value Ref Range Status 04/12/2025 2.9 (L) 5.0 - 12.0 % Final Eosinophil % Date Value Ref Range Status 04/12/2025 0.0 (L) 0.3 - 6.2 % Final Basophil % Date Value Ref Range Status 04/12/2025 0.2 0.0 - 1.5 % Final Immature Grans % Date Value Ref Range Status 04/12/2025 0.5 0.0 - 0.5 % Final Neutrophils, Absolute Date Value Ref Range Status 04/12/2025 17.18 (H) 1.70 - 7.00 10*3/mm3 Final Lymphocytes, Absolute Date Value Ref Range Status 04/12/2025 2.57 0.70 - 3.10 10*3/mm3 Final Monocytes, Absolute Date Value Ref Range Status 04/12/2025 0.59 0.10 - 0.90 10*3/mm3 Final Eosinophils, Absolute Date Value Ref Range Status 04/12/2025 0.00 0.00 - 0.40 10*3/mm3 Final Basophils, Absolute Date Value Ref Range Status 04/12/2025 0.04 0.00 - 0.20 10*3/mm3 Final Immature Grans, Absolute Date Value Ref Range Status 04/12/2025 0.11 (H) 0.00 - 0.05 10*3/mm3 Final nRBC Date Value Ref Range Status 04/12/2025 0.0 0.0 - 0.2 /100 WBC Final Lab Results Component Value Date GLUCOSE 265 (H) 04/12/2025 BUN 9.7 04/12/2025 CREATININE 0.59 04/12/2025 NA 130 (L) 04/12/2025 K 3.9 04/12/2025 CL 95 (L) 04/12/2025 CALCIUM 9.3 04/12/2025 PROTEINTOT 6.9 04/12/2025 ALBUMIN 3.5 04/12/2025 ALT 13 04/12/2025 AST 13 04/12/2025 ALKPHOS 128 (H) 04/12/2025 BILITOT 0.3 04/12/2025 GLOB 3.4 04/12/2025 AGRATIO 1.0 04/12/2025 BCR 16.4 04/12/2025 ANIONGAP 13.0 04/12/2025 EGFR 99.5 04/12/2025 XR Chest 1 View Result Date: 04/12/2025 Impression: Scattered interstitial coarsening with interspersed airspace opacities, which could reflect pneumonia with possible component of underlying chronic lung disease. Pulmonary edema is a lesslikely differential consideration. No prior exams available for comparison. Electronically Signed: Lore Chávez MD 04/12/2025 7:12 AM EDT Workstation ID: [id number] Results for orders placed during the hospital encounter of 04/12/25 Adult Transthoracic Echo Complete W/ Cont if Necessary Per Protocol (With Agitated Saline) 04/12/2025 1:49 PM Interpretation Summary Left ventricular systolic function is hyperdynamic (EF > 70%). Calculated left ventricular EF = 74.2% Left ventricular diastolic function is consistent with (grade I) impaired relaxation. Saline test results are negative. Moderate aortic valve stenosis is present. Aortic valve area is 1.2 cm2. Peak velocity of the flow distal to the aortic valve is 305.4 cm/s. Aortic valve maximum pressure gradient is 37 mmHg. Aortic valve mean pressure gradient is 19 mmHg. Aortic valve dimensionless indexis 0.42 . Estimated right ventricular systolic pressure from tricuspid regurgitation is normal (<35 mmHg).Calculated right ventricular systolic pressure from tricuspid regurgitation is 13 mmHg. -CT wo imagesfrom outside hospital on 04/11/2025 were personally reviewed and showed no acute ischemic or hemorrhagic stroke -CTA of the head and neck images from outside hospital on 04/11/2025 were personally reviewed and showed chronically occluded right vertebral artery from the origin with some reconstitution distally before merging with the left vertebral artery to form the basilar artery likely from retrograde flow. There is concern for left PICA occlusion -MRI brain images is pending -Transthoracic echocardiogram from 04/12/2025 report was personally reviewed and showed left ventricular ejection fraction of 74.2%, no left atrial dilation and negative bubble study -A1c from 04/12/2025 was 7.57% -LDL from 04/12/2025 was 100 -P2 Y12 level was 215 on 04/12/2025 Assessment/Plan This is 64-year-old white female, right-handed with multiple vascular risk factor presents to [facility] ED for headache associated with blurry vision, dizziness, syncopal episode started at noon improvement of symptoms with migraine cocktail patient was not a candidate for IV thrombolytic therapy or mechanical thrombectomy in the setting of no focality and ED physician was more suspicion towards migraine complex, however in the setting of focal stenosis and occlusion of posterior circulation patient will be coming to our facility for full stroke workup and higher level of care. Antiplatelet MATH AND PHYSICS INSTRUCTOR: Aspirin 81 mg Anticoagulant MATH AND PHYSICS INSTRUCTOR: None #Presyncopal event #Dizziness #Left sided headache with left blurry vision #Incidental finding on CTA head and neck of chronic occlusion of the right vert #Concern for an acute occlusion of the left MD OPHTHALMOLOGIST. -Etiology of patient's symptoms could possibly be due to TIA versus small ischemic stroke affectingthe ventricular/cerebellum in the setting of possible acute left PICA occlusion versus hypertensiveemergency versus complex migraine -[facility] wo imagesfrom outside hospital on 04/11/2025 were personally reviewed and showed no acute ischemic or hemorrhagic stroke -CTA of the head and neck images from outside hospital on 04/11/2025 were personally reviewed and showed chronically occluded right vertebral artery from the origin with some reconstitution distally before merging with the left vertebral artery to form the basilar artery likely from retrograde flow. There is concern for left PICA occlusion -MRI brain images is pending -Transthoracic echocardiogram from 04/12/2025 report was personally reviewed and showed left ventricular ejection fraction of 74.2%, no left atrial dilation and negative bubble study -A1c from 04/12/2025 was 7.57% -LDL from 04/12/2025 was 100 -P2 Y12 level was 215 on 04/12/2025 Recommendations -MRI brain without contrast ordered and pending -Continue aspirin 81 mg and Plavix 75 mg for 21 days then Plavix monotherapy indefinite. -Increase atorvastatin to 80 mg nightly for secondary stroke prevention. Target LDL level of less than 70 -Target systolic blood pressure goals of normotension -Activity as tolerated, fall risk precautions -PT/OT/PALLIATIVE CARE NURSE evaluation -Okay for migraine cocktail avoid NSAIDs -Okay for Tylenol 650 p.o. or rectal for headache pain mild to moderate. #Essential hypertension, complicated by hypertensive emergency -Target systolic blood pressure goals of normotension #Hyperlipidemia -Atorvastatin 80mg nightly #Diabetes Mellitus type 2, -Maintain euglycemia -Management per primary team #Obesity - BMI 33.30 - Complicated aspects of care - Counseling on healthy diet exercise and weight loss Stroke will continue to follow. Please call for any further questions or concerns Lele Rothman MD, Msc, PhD Vascular Neurologist [facility] documented in this encounter H&P Notes * Shakira Barney MD - 04/12/2025 3:14 AM EDT Images from the original note were not included. [facility] Medicine Services HISTORY AND PHYSICAL Patient Name: Karyn Sanz : 1960 Primary Care Physician: Anthony Lainez MD Date of admission: 04/12/2025 Subjective Subjective Chief Complaint: Dizziness with fall after getting up too quickly , headache with vomiting, stiff neck for days HPI: Karyn Sanz is a 64 y.o. 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 The patient reports an episode of dizziness today after getting up too quickly, accompanied by headache, visual spots, and a fall without loss of consciousness. She mentions having a stiff neck for several days. The patient also describes experiencing headachessevere enough to cause vomiting. The patient uses supplemental oxygen at home, requiring 2 liters at rest and 4 liters with activity. She has been using a CPAP machine for sleep apnea for about 5 years but often switches to 2 litersof oxygen via nasal cannula due to discomfort with the CPAP. Regarding medication adherence, the patient reports taking three tablets of 81 mg of aspirin, and metoprolol for her recent symptoms today but did not take her insulin or check her glucose level. Shementions discontinuing losartan due to insurance coverage issues. Her current medication regimen includes isosorbide, metoprolol, and spirolactone for blood pressure management. The patient also useslong-acting insulin, which she now takes in the morning (40 units) instead of 50 units at night as previously prescribed. She admits to not taking her insulin yesterday.The patient has a home nebulizer that she uses as needed. History from stroke team: Transferred from [facility]. Around noon today she had a presyncopal event and then became dizzy and had a left sided headache with left blurry vision. Complains of neck pain as well. They treated her with migraine cocktail, vision has somewhat improved. CT head revealed no acute intracranial normality. CTA showed a chronic occlusion of the right vert and a likely acute occlusion of the left MD OPHTHALMOLOGIST. NIH 1. WBC 17. Review of Systems General: Positive for dizziness. HEENT: Positive for headache, visual disturbances (seeing spots), stiff neck. Cardiovascular: Positive for fall without loss of consciousness. Gastrointestinal: Positive for vomiting. Neurological: Positive for headache, dizziness, visual disturbances (seeing spots). Personal History Past Medical History: Diagnosis Date Arthritis Asthma COPD (chronic obstructive pulmonary disease) Diabetes mellitus Hyperlipidemia Hypertension Interstitial lung disease with RH factor Murmur Osteoarthritis Rheumatoid arthritis Sleep apnea Smoker Past Surgical History: Procedure Laterality Date APPENDECTOMY CARDIAC CATHETERIZATION HYSTERECTOMY TUBAL ABDOMINAL LIGATION Bilateral Family History: family history is not on file. Social History: reports that she quit smoking about 23 years ago. Her smoking use included cigarettes. She started smoking about 47 years ago. She has a 48 pack-year smoking history. She has never used smokeless tobacco. She reports that she does not drink alcohol. Social History Social History Narrative Not on file Medications: Available home medication information reviewed. Diclofenac Sodium, Vzxqcthbedh-Bqetncuob-Uyvzai, Insulin Lispro, Semaglutide(0.25 or 0.5MG/DOS), albuterol, albuterol sulfate HFA, atorvastatin, esomeprazole, insulin glargine, isosorbide mononitrate, metoprolol succinate XL, predniSONE, and spironolactone Allergies Allergen Reactions Penicillins Anaphylaxis As a child at 1 years old Sulfa Antibiotics Itching and Angioedema Objective Objective Vital Signs: Temp: [97.6 ??F (36.4 ??C)] 97.6 ??F (36.4 ??C) Heart Rate: [97] 97 Resp: [22] 22 BP: (184)/(92) 184/92 Flow (L/min) (Oxygen Therapy): [3] 3 Total (NIH Stroke Scale): 0 Physical Exam Vitals reviewed. Constitutional: General: She is not in acute distress. Appearance: Normal appearance. She is not ill-appearing. HENT: Head: Normocephalic and atraumatic. Right Ear: External ear normal. Left Ear: External ear normal. Nose: Nose normal. Mouth/Throat: Mouth: Mucous membranes are moist. Pharynx: Oropharyngeal exudate present. Eyes: General: No scleral icterus. Extraocular Movements: Extraocular movements intact. Pupils: Pupils are equal, round, and reactive to light. Cardiovascular: Rate and Rhythm: Normal rate and regular rhythm. Pulses: Normal pulses. Heart sounds: Murmur heard. Pulmonary: Effort: Pulmonary effort is normal. No respiratory distress. Breath sounds: Normal breath sounds. No stridor. No wheezing. Abdominal: General: Abdomen is flat. Bowel sounds are normal. There is no distension. Palpations: Abdomen is soft. Tenderness: There is no abdominal tenderness. There is no guarding. Genitourinary: Comments: deferred Musculoskeletal: General: Swelling present. No tenderness. Normal range of motion. Cervical back: Normal range of motion and neck supple. Right lower leg: No edema. Left lower leg: No edema. Skin: General: Skin is warm and dry. Capillary Refill: Capillary refill takes 2 to 3 seconds. Coloration: Skin is not jaundiced or pale. Neurological: Mental Status: She is alert and oriented to person, place, and time. Cranial Nerves: No cranial nerve deficit. Sensory: No sensory deficit. Psychiatric: Mood and Affect: Mood normal. Behavior: Behavior normal. Result Review: I have personally reviewed the results from the time of this admission to 04/12/2025 03:58 EDT and agree with these findings: [x] Laboratory list / accordion [] Microbiology [] Radiology [x] EKG/Telemetry [] Cardiology/Vascular [] Pathology [x] Old records [] Other: Most notable findings include: pending LAB RESULTS: Microbiology Results (last 10 days) No results found for the last 240 hours. No radiology results from the last 24 hrs Assessment & Plan Assessment & Plan Stroke Chronic respiratory failure with hypoxia Primary hypertension Type 2 diabetes mellitus, with long-term current use of insulin Stroke // acute occlusion of left MD OPHTHALMOLOGIST // NIH 1 Plan: -Admit to medicine telemetry monitoring - Stroke order set placed by stroke SHELBY //no thromboembolic therapy administered -NPO - PT/OT/PALLIATIVE CARE NURSE evaluation in the morning -TTE and MRI Brain studies pending - Aspirin plus statin -Pain control: P.o. Tylenol and IV morphine - Full neurology evaluation morning -check AM labs 2. HTN Plan: - Allow for permissive hypertension for autoregulation - Initiate Cardene drip for systolic blood pressure greater than 200 mmHg - Resume p.o. home medications when patient is cleared for diet 3. Chronic hypoxic respiratory failure // history of RA-ILD on home oxygen 24/7: 2L nc at rest & 4L nc with exertion, ANDRES intermittent compliance with CPAP therapy. Patient previously referred tolung transplantation clinic. Plan: - Continue supplemental oxygen at dose 3 L to maintain O2 sat greater than 94% - Resume home dose inhalers: [id number] + albuterol nebulization [id number] - Recommend 6-minute walk prior to hospital discharge - resume CPAP at night; titrate per RT protocol to maintain O2 sat greater than 94% with sleeping - Consult the pulmonary team in the morning for further management and recommendations -Home medications: Currently on Rituximab every 4 months (2 g, RA dosing) + Myfortic 720 mg BID - Consult to the palliative care team for goals of care and advance care planning // patient expressed admission nurse overnight that she is considering DNR status 4. T2DM // insulin-dependent Plan: - Insulin sliding scale per hospitalization protocol // patient hyperglycemic on admission fingerstick 333 - Resume home dose basal insulin: Lantus 40 units every morning - Check A1c and lipid panel in a.m - Inpatient nutrition consult and inpatient chemical educator consult. 5. Leukocytosis // elevated lactate 2.6 - Repeat a.m. labs - Check UA, respiratory cx, blood cx to r/o sepsis -check CXR; patient complaining of congestion - Gentle IV fluid hydration -Patient is immunocompromise due to her RA and ILD, therefore will start empiric IV abxs for CAP //de-escalate antibiotics when micro cultures return Total time spent: 40 minutes Time spent includes time reviewing chart, [id number]-bj-[id number] time, counseling patient/family/caregiver, ordering medications/tests/procedures, communicating with other health cardiac care nurse, documenting clinical information in the electronic health record, and coordination of care. VTE Prophylaxis: Mechanical VTE prophylaxis orders are present. CODE STATUS: Code Status and Medical Interventions: CPR (Attempt to Resuscitate); Full Support Ordered at: 04/12/25 0329 Code Status (Patient has no pulse and is not breathing): CPR (Attempt to Resuscitate) Medical Interventions (Patient has pulse or is breathing): Full Support Level Of Support Discussed With: Patient Expected Discharge Expected Discharge Date: 04/15/2025; Expected Discharge Time: Shakira Barney MD 04/12/25 documented in this encounter Consult Notes * Hina Pittman RN - 04/13/2025 5:35 PM EDT Diabetes Education Patient Name: Karyn Sanz Date of : 1960 Admit Date: 04/12/2025 Reviwed chart for diabetes education consult. Noted history of diabetes. Noted taking diabetes medication at home. Noted stroke was negative per MD note, so she is not eligible for stroke and diabetes follow up class. Spoke to Ms. Sanz at the bedside. She gave me permission to speak with her. She states she has had diabetes for about 10 years. She states that she sees primary care provider for diabetes care in [facility]. She states that he takes Bassaglar, Mounjaro, and Humalog at home totreat diabetes. She states that she has FSBS monitor and she checks her blood sugar before meals because she uses a sliding scale to treat high blood sugar. She stats that her A1c has been better lately. It was 7.57% in chart. She states that the medications have been working well for her. She states that the mounjaro makes her throw up if she eats certain foods, especially sweets. She states that she has had a lot of diabetes education in the past, and she was not really in need of much more. She agreed to take a look at our Life with Diabetes handout including physiology, medication, what to do when you are sick, monitoring blood sugar, low blood sugar and how to treat if less than 70 andhigh blood sugar. Reviewed importance of exercise, staying hydrated, and regular follow up with provider preventatively. Reminded her of risks related to chronic complications. She was given the handout as well as our contact information and she was encouraged to use us as a resource. Thank you forthis referral. 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 Interstitial lung disease thought secondary to RA on 2 L/min nasal cannula continuously 7. Seropositive rheumatoid arthritis (initial diagnosis 1996) treated with rituximab followed by [facility] 8. Obstructive sleep apnea on CPAP therapy 9. Remote operations: Appendectomy-data deficit Bilateral tubal ligation-data deficit Hysterectomy-data deficit 10. Remote stroke with recent meningismus and presyncopal event with dizziness and left frontal headache with blurry vision and migraine cocktail with vision improvement and abnormal head CTA and hospitalization, April 2025 11. Abnormal echocardiogram with moderate aortic stenosis (probable bicuspid aortic valve disease) and hyperdynamic systolic left ventricular function without discernible intracardiac shunt on IV saline testing, April 2025 Remote moderate iron deficiency (TSAT 10%), December 2021 12. Pulmonary human rhinovirus/enterovirus infection, April 2025 13. Remote chest pain syndrome with apparent acceptable diagnostic coronary angiography and empiricticagrelor/Imdur therapy ([facility] Dr. Valencia approximately 2022)-data deficit 14. DNI/DNR Allergies Allergen Reactions Penicillins Anaphylaxis As a child at 1 years old Sulfa Antibiotics Itching and Angioedema Medications Prior to Admission Medication Sig Dispense Refill Last Dose/Taking atorvastatin (LIPITOR) 40 MG tablet Take 1 tablet by mouth Daily. 04/12/2025 Morning albuterol (PROVENTIL) (2.5 MG/3ML) 0.083% nebulizer solution Take 2.5 mg by nebulization Every 6 (Six) Hours As Needed for Wheezing. albuterol sulfate HFA 108 (90 Base) MCG/ACT inhaler Inhale 2 puffs Every 4 (Four) Hours As Needed for Wheezing. Diclofenac Sodium (VOLTAREN) 1 % gel gel Apply 4 g topically to the appropriate area as directed 4 (Four) Times a Day As Needed. esomeprazole (nexIUM) 40 MG capsule Take 1 capsule by mouth Every Morning Before Breakfast. Warftvkvxyh-Ixztntgjn-Svtgqw (Trelegy Ellipta) 100-62.5-25 MCG/ACT inhaler Inhale 1 puff Daily. insulin glargine (LANTUS, SEMGLEE) 100 UNIT/ML injection Inject 50 Units under the skin into the appropriate area as directed Every Night. Insulin Lispro (humaLOG) 100 UNIT/ML injection Inject 15 Units under the skin into the appropriate area as directed 3 (Three) Times a Day Before Meals. isosorbide mononitrate (IMDUR) 30 MG 24 hr tablet Take 1 tablet by mouth Daily. isosorbide mononitrate (IMDUR) 60 MG 24 hr tablet Take 1 tablet by mouth Daily. metoprolol succinate XL (TOPROL-XL) 25 MG 24 hr tablet Take 1 tablet by mouth Daily. predniSONE (DELTASONE) 1 MG tablet Take 1 tablet by mouth Daily. Semaglutide,0.25 or 0.5MG/DOS, (OZEMPIC) 2 MG/1.5ML solution pen-injector Inject 0.25 mg under the skin into the appropriate area as directed 1 (One) Time Per Week. spironolactone (ALDACTONE) 25 MG tablet Take 1 tablet by mouth Daily. ticagrelor (BRILINTA) 90 MG tablet tablet Take 1 tablet by mouth 2 (Two) Times a Day. 60 tablet 0 Scheduled Meds:Albuterol Sulfate NEB Orderable, 2.5 mg, Nebulization, Q6H - RT aspirin, 81 mg, Oral, Daily Or aspirin, 300 mg, Rectal, Daily atorvastatin, 80 mg, Oral, Nightly budesonide-formoterol, 2 puff, Inhalation, BID - RT And revefenacin, 175 mcg, Nebulization, Daily - RT doxycycline, 100 mg, Intravenous, BID famotidine, 40 mg, Oral, Daily insulin glargine, 40 Units, Subcutaneous, Daily insulin lispro, 2-7 Units, Subcutaneous, 4x Daily AC & at Bedtime isosorbide mononitrate, 60 mg, Oral, Daily metoprolol succinate XL, 25 mg, Oral, Daily spironolactone, 25 mg, Oral, Daily ticagrelor, 90 mg, Oral, BID Continuous Infusions: PRN Meds:. acetaminophen OR acetaminophen OR acetaminophen senna-docusate sodium AND polyethylene glycol AND bisacodyl AND bisacodyl Calcium Replacement - Follow Nurse / BPA Driven Protocol dextrose dextrose glucagon (human recombinant) Magnesium Cardiology Dose Replacement - Follow Nurse / BPA Driven Protocol Morphine AND naloxone nitroglycerin ondansetron Phosphorus Replacement - Follow Nurse / BPA Driven Protocol Potassium Replacement - Follow Nurse / BPA Driven Protocol History of Present Illness: Middle-aged female admitted to the hospitalist service with stroke neurology consultation on the evening of 11 April 2025 for acute onset of presyncopal episode, headache, altered vision, and dizziness with meningismus and abnormal neuroimaging. Cardiology consultation is requested this morning. The patient's cardiac history is pertinent for known cardiac murmur since age approximately 16 years with recent cardiology evaluation and care by Dr. Valencia with every 6- month follow-up. She denies angina pectoris, CHF, PND, TIA, claudication, stroke, or tachypalpitations/defined cardiac arrhythmia. She is active on a day-to-day basis but is limited by her rheumatoid arthritis and interstitial corby g disease. She is currently back to baseline and denies dizziness, orthostatic presyncope, focal weakness, headache, meningismus, or paresthesias. Cardiac risk factors: advanced age (older than 55 for men, 65 for women), diabetes mellitus, dyslipidemia, hypertension, obesity (BMI >= 30 kg/m2), sedentary lifestyle, and smoking/ tobacco exposure. Social History Socioeconomic History Marital status: Tobacco Use Smoking status: Former Current packs/day: 0.00 Average packs/day: 2.0 packs/day for 24.0 years (48.0 ttl pk-yrs) Types: Cigarettes Start date: 1977 Quit date: 2001 Years since quittin.6 Smokeless tobacco: Never Vaping Use Vaping status: Never Used Substance and Sexual Activity Alcohol use: Never Drug use: Never Sexual activity: Defer History reviewed. No pertinent family history. Review of Systems 10 point review of systems was completed, positives outlined in the HPI, and otherwise all other systems are negative. Objective: Physical Exam BP 114/84 (BP Location: Right arm, Patient Position: Lying) Pulse 77 Temp 97.8 ??F (36.6 ??C) (Oral) Resp 18 Ht 160 cm (62.99 ) Wt 85.3 kg (188 lb 0.8 oz) SpO2 100% BMI 33.32 kg/m?? 04/12/25 0318 04/12/25 0754 Weight: 85.3 kg (188 lb) 85.3 kg (188 lb 0.8 oz) Body mass index is 33.32 kg/m??. Intake/Output Summary (Last 24 hours) at 04/13/2025 1021 Last data filed at 04/13/2025 0603 Gross per 24 hour Intake 1000 ml Output -- Net 1000 ml General Appearance: Alert, cooperative, no distress, appears stated age Head: Normocephalic, without obvious abnormality, atraumatic Eyes: PERRL, conjunctivae/corneas clear, EOM's intact Throat: Lips, mucosa, and tongue normal; teeth and gums normal Neck: Supple, symmetrical, trachea midline, no adenopathy, thyroid: not enlarged, symmetric, no tenderness/mass/nodules, no carotid bruit with prominent transmitted murmur and no JVD Lungs: Overall diminished breath sounds with scattered rhonchi and fine expiratory wheezes bilaterally, respirations unlabored 2 L/min nasal cannula (oximetry 94%). Heart: Regular rate and rhythm, S1, S2 normal, grade 3/6 RUSB systolic murmur radiating to the neck, no rub or gallop Abdomen: Soft, nontender, no masses, no organomegaly, bowel sounds audible x4 Extremities: No edema, normal range of motion Pulses: 2+ and symmetric Skin: Skin color, texture, turgor normal, no rashes or lesions Neurologic: No focal changes noted; gait acceptable Cardiographics: EKG: Sinus rhythm with 1st degree AV block Minimal voltage criteria for LVH, may be normal variant Borderline ECG No previous ECGs available ECHO: Left ventricular systolic function is hyperdynamic (EF > 70%). Calculated left ventricular EF = 74.2% Left ventricular diastolic function is consistent with (grade I) impaired relaxation. Saline test results are negative. Moderate aortic valve stenosis is present. Aortic valve area is 1.2 cm2. Peak velocity of the flow distal to the aortic valve is 305.4 cm/s. Aortic valve maximum pressure gradient is 37 mmHg. Aortic valve mean pressure gradient is 19 mmHg. Aortic valve dimensionless indexis 0.42 . Estimated right ventricular systolic pressure from tricuspid regurgitation is normal (<35 mmHg).Calculated right ventricular systolic pressure from tricuspid regurgitation is 13 mmHg. Imaging: Chest x-ray: Findings: Mildly enlarged cardiac silhouette. Scattered interstitial coarsening with interspersed airspace opacities, for example in the right lateral midlung. No sizable pleural effusion. No pneumothorax. Osseous structures are grossly unremarkable. IMPRESSION: Scattered interstitial coarsening with interspersed airspace opacities, which could reflect pneumonia with possible component of underlying chronic lung disease. Pulmonary edema is a less likely differential consideration. No prior exams available for comparison. BRAIN MRI: Findings: Diffusion images reveal no acute or subacute ischemia. There is generalized atrophy. There is a tiny old lacunar infarct in the left thalamus. White matter signal is essentially normal for patient age without significant small vessel ischemic disease. No acute hemorrhage is identified. Craniocervical junction is normal. Pituitary unremarkable. No masses are identified. Major intracranial flow voids are maintained. IMPRESSIONS: 1.No acute or subacute ischemia. No acute hemorrhage. 2.Tiny old lacunar infarct left thalamus. 3.Mild age-appropriate atrophy. CHEST CTA: Findings: PULMONARY VASCULATURE: Pulmonary arteries are widely patent without evidence of embolus. Main pulmonary artery is mildly enlarged measuring 3.3 cm in diameter suggesting pulmonary arterial hypertension. MEDIASTINUM: There are aortic valvular calcifications. There is minimal calcification of the mitralvalve annulus. Aortic and heart size are normal. No aortic dissection identified. No mass nor pericardial effusion. CORONARY ARTERIES: No calcified atherosclerotic disease. LUNGS: No consolidation or suspicious nodule. There is cylindrical bronchiectasis mild in severity with areas of nonspecific reticular interstitial prominence and a degree of central to lower lung fibrosis peripherally. PLEURAL SPACE: No effusion, mass, nor pneumothorax. LYMPH NODES: There are no pathologically enlarged lymph nodes. UPPER ABDOMEN: Unremarkable OSSEOUS STRUCTURES: Appropriate for age with no acute process identified. IMPRESSIONS: 1.No evidence of pulmonary embolism nor other acute cardiopulmonary process. 2.Nonspecific interstitial lung changes with a degree of fibrosis most pronounced in the periphery of the lung bases. Lab Review Results from last 7 days Lab Units 04/13/25 0804/12/25 0454 SODIUM mmol/L 140 130* POTASSIUM mmol/L 4.3 3.9 CHLORIDE mmol/L 104 95* CO2 mmol/L 23.0 22.0 BUN mg/dL 12.0 9.7 CREATININE mg/dL 0.58 0.59 GLUCOSE mg/dL 84 265* CALCIUM mg/dL 8.5* 9.3 Results from last 7 days Lab Units 04/13/25 0821 04/12/25 0454 WBC 10*3/mm3 22.49* 20.49* HEMOGLOBIN g/dL 11.8* 13.1 HEMATOCRIT % 36.9 42.1 PLATELETS 10*3/mm3 385 418 Results from last 7 days Lab Units 04/12/25 0454 CHOLESTEROL mg/dL 159 TRIGLYCERIDES mg/dL 55 HDL CHOL mg/dL 48 LDL CHOL mg/dL 100 Results from last 7 days Lab Units 04/12/25 0454 HEMOGLOBIN A1C % 7.57* Results from last 7 days Lab Units 04/12/25 0904 04/12/25 0454 HSTROP T ng/L <6 <6 URINALYSIS: Marked glycosuria; otherwise WNL. VIRAL RESPIRATORY PANEL PCR: Positive human rhinovirus/enterovirus ABGs (nasal cannula; FiO2 0.32): pH 7.40, pCO2 42, pO2 147 (99% saturation) NO CK / LDH / CRP / PCT / ESR / D-DIMER proBNP: 170.9 MAGNESIUM: 2.2 PHOSPHORUS: 2.3 ALBUMIN: 3.5 LFTs: WNL LACTATE: 2.5 INR: 1.02 P2Y12 RU: 215 NO DRIPS. Assessment: Middle-aged female with probable largely asymptomatic bicuspid aortic valve disease with moderate and preserved systolic left ventricular function without acute coronary artery syndrome, decompensated congestive heart failure, or discernible cardiac arrhythmia on telemetry since admission to hospital. Will defer additional cardiac studies at this time except to consider event monitor which canbe applied and interpreted by her primary agricultural researcher as an outpatient. She needs improved controlof her LDL cholesterol to hopefully get her level below 55 Mg/DL in my opinion. Additionally she needs screening for LP(a) if this has not been accomplished before. In view of lack of acute findings of stroke on brain MRI would defer CLAUDIA at this time. Plan: 1. Defer MPS/LHC/RHC/CLAUDIA/coronary artery CTA at this time 2. Consider carotid artery duplex to assess vertebral arteries 3. Continue current medications with goal systolic blood pressure at or below 135 torr and LDL cholesterol at or below 55 mg/DL with high-dose atorvastatin plus or minus ezetimibe/bempedoic acid versus PCSK9 inhibitor drug therapy 4. Concur with continued GLP-1 agonist therapy to reduce weight and lower cardiovascular disease risk factors/outcomes and reduce need for treatment of ANDRES 5. Consider outpatient event monitor with primary agricultural researcher Discussed with patient in room; we will standby and be available to see as needed during current hospitalization. * Criselda Suresh RD - 04/12/2025 8:06 PM EDTAssociated Order(s): IP CONSULT TO NUTRITION SERVICES Clinical Nutrition Nutrition Education Reason for Visit: Physician Consult Patient Name: Karyn Sanz Date of : 1960 Date of Encounter: 04/12/25 20:06 EDT Admission date: 04/12/2025 Applicable Diagnoses DM Diet/Nutrition Related History: Pt allows knows how to carb count; has decreased HgbA1c from over 11 to 7. Aware MD wants if down to 5. Notes elevated BS initiated w introduction of steroid therapy for ILD.Allows gets order for DM ed every hospital adm. Labs reviewed Yes Nutrition Diagnosis 04/12 Problem Altered nutrition related lab values Related To DM Signs/Symptoms HgbA1c 7.57 Status: pt working to decrease BS using strategies she has been taught will use materials for review. Goal: Increase knowledge on diet/nutrition effects on condition/status Nutrition Intervention Education provided regarding nutrition therapy for: Diet rationale, Freedman food habit change, and Consistent Carbohydrate Diet Education provided regarding food habits/behavior related to:Food choices, Eating pattern, Appropriate portions, and Label reading covered in material RD provided printed material via [employer] RDN created education material and Other [employer] material Monitoring/Evaluation: Pt acknowledged understanding of material covered Criselda Suresh RD Time Spent: 20 min * Fran Stewart RN - 04/12/2025 3:00 PM EDT Patient not available at time of encounter. * Angelika Durham APRN - 04/12/2025 12:27 PM EDTAssociated Order(s): IP CONSULT TO PALLIATIVE CARE MD Palliative Care Initial Consult Attending Physician: Tevin Lees MD Referring Provider: Dr. Shakira Barney Reason for Referral: assistance with clarification of goals of care Code Status: Code Status and Medical Interventions: CPR (Attempt to Resuscitate); Full Support Ordered at: 04/12/25 0329 Code Status (Patient has no pulse and is not breathing): CPR (Attempt to Resuscitate) Medical Interventions (Patient has pulse or is breathing): Full Support Level Of Support Discussed With: Patient Advanced Directives: Advance Directive Status: Patient does not have advance directive Family/Support: Amrita Bhatia (dtr), Emmanuel Sanz (spouse) Goals of Care: TBD. HPI: Karyn Sanz is a 64 y.o. female with PMH significant for HTN, IDDM, ANDRES on CPAP, ILD, RA, chronic hypoxic respiratory failure on home oxygen 2LNC at rest and 4LNC with exertion, previously referred to lung transplantation clinic. Patient presented to [facility] as a transfer from [facility] on04/12 with dizziness, headache and fall and work up revealed CTA showing acute occlusion of left MD OPHTHALMOLOGIST.Further workup pending. Palliative Care consulted for C in the context of complex medical decision making. Patient alert and oriented x4, spouse at bedside. She reports that she does not want CPR or MV, shealready has EMS DNR in place. She denies pain at this time. She is understanding of her ILD and would consider hospice services in the future. She is independent of ADL's and cares for her grandchildren. ROS: Denies pain, nausea, shortness of breath. Past Medical History: Diagnosis Date Arthritis Asthma COPD (chronic obstructive pulmonary disease) Diabetes mellitus Hyperlipidemia Hypertension Interstitial lung disease with RH factor Murmur Osteoarthritis Rheumatoid arthritis Sleep apnea Smoker Past Surgical History: Procedure Laterality Date APPENDECTOMY CARDIAC CATHETERIZATION HYSTERECTOMY TUBAL ABDOMINAL LIGATION Bilateral Social History Socioeconomic History Marital status: Tobacco Use Smoking status: Former Current packs/day: 0.00 Average packs/day: 2.0 packs/day for 24.0 years (48.0 ttl pk-yrs) Types: Cigarettes Start date: 1977 Quit date: 2001 Years since quittin.6 Smokeless tobacco: Never Vaping Use Vaping status: Never Used Substance and Sexual Activity Alcohol use: Never Drug use: Never Sexual activity: Defer History reviewed. No pertinent family history. Allergies Allergen Reactions Penicillins Anaphylaxis As a child at 1 years old Sulfa Antibiotics Itching and Angioedema Current medication reviewed for route, type, dose and frequency and are current per MAR at time of dictation. Palliative Performance Scale Score: 60% BP (!) 184/92 Pulse 100 Temp 97.6 ??F (36.4 ??C) (Oral) Resp 18 Ht 160 cm (62.99 ) Wt 85.3 kg (188 lb 0.8 oz) SpO2 100% BMI 33.32 kg/m?? No intake or output data in the 24 hours ending 04/12/25 09 Physical Exam: General Appearance: Patient lying in bed, awake, alert, chronically ill appearing, cooperative, NAD HEENT: NC/AT, EOMI, anicteric, MMM, face relaxed Neck: supple, trachea midline, no JVD Lungs: diminished in bases; respirations regular, even and unlabored; RR 16-18 on exam, 3LNC Heart: RRR, normal S1 and S2, no M/R/G Abdomen: Normal bowel sounds, soft, nontender, nondistended G/U: Deferred MSK/Extremities: Wasting, no edema Pulses: Pulses palpable and equal bilaterally Skin: Warm, dry Neurologic: A/Ox3, cooperative, CLEARY Psych: Calm, appropriate Labs: Results from last 7 days Lab Units 04/12/25 0454 WBC 10*3/mm3 20.49* HEMOGLOBIN g/dL 13.1 HEMATOCRIT % 42.1 PLATELETS 10*3/mm3 418 Results from last 7 days Lab Units 04/12/25 0454 SODIUM mmol/L 130* POTASSIUM mmol/L 3.9 CHLORIDE mmol/L 95* CO2 mmol/L 22.0 BUN mg/dL 9.7 CREATININE mg/dL 0.59 GLUCOSE mg/dL 265* CALCIUM mg/dL 9.3 Results from last 7 days Lab Units 04/12/25 0454 SODIUM mmol/L 130* POTASSIUM mmol/L 3.9 CHLORIDE mmol/L 95* CO2 mmol/L 22.0 BUN mg/dL 9.7 CREATININE mg/dL 0.59 CALCIUM mg/dL 9.3 BILIRUBIN mg/dL 0.3 ALK PHOS U/L 128* ALT (SGPT) U/L 13 AST (SGOT) U/L 13 GLUCOSE mg/dL 265* Imaging Results (Last 72 Hours) Procedure Component Value Units Date/Time XR Chest 1 View [[id number]] Collected: 04/12/25708 Updated: 04/12/25714 Narrative: XR CHEST 1 VW Date of Exam: 04/12/2025 6:24 AM EDT Indication: cough Comparison: None available. Findings: Mildly enlarged cardiac silhouette. Scattered interstitial coarsening with interspersed airspace opacities, for example in the right lateral midlung. No sizable pleural effusion. No pneumothorax. Osseous structures are grossly unremarkable. Impression: Impression: Scattered interstitial coarsening with interspersed airspace opacities, which could reflect pneumonia with possible component of underlying chronic lung disease. Pulmonary edema is a less likely differential consideration. No prior exams available for comparison. Electronically Signed: Aris Chávez MD 04/12/2025 7:12 AM EDT Workstation ID: [id number] CT Outside Spine [[id number]] Resulted: 04/12/25648 Updated: 04/12/25648 Narrative: This procedure was auto-finalized with no dictation required. CT Outside Neck [[id number]] Resulted: 04/12/25647 Updated: 04/12/25647 Narrative: This procedure was auto-finalized with no dictation required. CT Outside Head [[id number]] Resulted: 04/12/25647 Updated: 04/12/25647 Narrative: This procedure was auto-finalized with no dictation required. CT Outside Head [[id number]] Resulted: 04/12/25646 Updated: 04/12/25646 Narrative: This procedure was auto-finalized with no dictation required. Lab 04/12/25 0454 HEMOGLOBIN A1C 7.57* Diagnostics: Reviewed A: Stroke Chronic respiratory failure with hypoxia Primary hypertension Type 2 diabetes mellitus, with long-term current use of insulin 64 y.o. female with ILD due to RA, T2DM, chronic respiratory failure secondary to ILD, syncopal episode. S/S: GOC -DNR/DNI -per discussion with patient, she requested Palliative consultation to ensure code status DNR/DNI on her chart, she has an EMS DNR in place at home, she is understanding of her ILD and would choose a comfort focused plan of care in the future with significant disease progression, she is currently ongoing full treatment and living well at home P: Introduced Palliative care and services. Patient requested Palliative consult to ensure code status DNR/DNI in place. No further needs. Palliative Care will sign off as GOC established and no symptoms. Thank you for this consult and allowing us to participate in patient's plan of care. Palliative Care Team will sign off. Please do not hesitate to contact us regarding further symptom management or goals of care needs. Time: 30 minutes spent reviewing medical and medication records, assessing and examining patient, discussing with family, answering questions, providing some guidance about a plan and documentation of care, and coordinating care with other healthcare members, with > 50% time spent face to face. Angelika Durham APRN 04/12/2025 * Martin Duong MD - 04/12/2025 10:02 AM EDTAssociated Order(s): IP CONSULT TO PULMONOLOGY Pulmonary Consult LOS: 0 days Patient Care Team: Anthony Lainez MD as PCP - General (Emergency Medicine) Chief Complaint: Syncope Subjective 64 y.o. former smoker quit in 2001 with history of HTN, HLD, T2DM, RA, rheumatoid arthritis associated ILD, on CellCept and Rituxan, chronic hypoxemic respiratory failure on 2 to 4 L home oxygen, previously referred to transplant although patient reports she has not interested in transplant, ANDRES intolerant of CPAP, admitted 04/12/2025 after a near syncopal episode at home [facility] due to concern for possible stroke.Patient reports she has had 4 or 5 days of neck pain and developed sudden onset of dizziness accompanied by headache and transient partial vision loss. Interval History: History taken from: PM//Social History were reviewed and updated appropriately in the electronic medical record. Past Medical History: Diagnosis Date Arthritis Asthma COPD (chronic obstructive pulmonary disease) Diabetes mellitus Hyperlipidemia Hypertension Interstitial lung disease with RH factor Murmur Osteoarthritis Rheumatoid arthritis Sleep apnea Smoker Past Surgical History: Procedure Laterality Date APPENDECTOMY CARDIAC CATHETERIZATION HYSTERECTOMY TUBAL ABDOMINAL LIGATION Bilateral History reviewed. No pertinent family history. Social History Socioeconomic History Marital status: Tobacco Use Smoking status: Former Current packs/day: 0.00 Average packs/day: 2.0 packs/day for 24.0 years (48.0 ttl pk-yrs) Types: Cigarettes Start date: 1977 Quit date: 2001 Years since quittin.6 Smokeless tobacco: Never Vaping Use Vaping status: Never Used Substance and Sexual Activity Alcohol use: Never Drug use: Never Sexual activity: Defer Review of Systems: Review of 14 systems was completed with positives and pertinent negatives noted in the subjective section. All other systems reviewed and are negative. Objective Vital Signs Temp: [97.6 ??F (36.4 ??C)] 97.6 ??F (36.4 ??C) Heart Rate: [97-100] 100 Resp: [18-22] 18 BP: (184)/(92) 184/92 No intake/output data recorded. Body mass index is 33.32 kg/m??. IV drips: sodium chloride, Last Rate: 75 mL/hr (04/12/25 0643) Physical Exam: Constitutional: Alert, in no acute distress Head: Normocephalic, atraumatic Eyes: Lids and lashes normal, conjunctivae and sclerae normal. PER ENMT: Ears appear intact with no abnormalities noted Lips normal. Neck: Trachea midline, no JVD Lungs/Resp: Normal effort, symmetric chest rise, no crepitus, mild rales bilaterally. Heart/CV: Regular rhythm and normal rate, no murmur Abdomen/GI: Soft, nontender, nondistended : Deferred Extremities/MSK: No clubbing or cyanosis. No edema. Pulses: Pulses palpable and equal bilaterally Skin: No bleeding, bruising or rash Heme/Lymph: No cervical or supraclavicular adenopathy. Neurologic: Psychiatric: Moves all extremities with no obvious focal motor deficit. Cranial nerves 2 - 12 grossly intact Non-agitated, normal affect. The above physical exam findings were reviewed and reflect my exam findings as of today's exam. Electronically signed by: Martin Duong MD 04/12/25 10:02 EDT Results Review: I reviewed the patient's new clinical results. Results from last 7 days Lab Units 04/12/25 0454 SODIUM mmol/L 130* POTASSIUM mmol/L 3.9 CHLORIDE mmol/L 95* CO2 mmol/L 22.0 BUN mg/dL 9.7 CREATININE mg/dL 0.59 CALCIUM mg/dL 9.3 BILIRUBIN mg/dL 0.3 ALK PHOS U/L 128* ALT (SGPT) U/L 13 AST (SGOT) U/L 13 GLUCOSE mg/dL 265* Results from last 7 days Lab Units 04/12/25 0454 WBC 10*3/mm3 20.49* HEMOGLOBIN g/dL 13.1 HEMATOCRIT % 42.1 PLATELETS 10*3/mm3 418 Results from last 7 days Lab Units 04/12/25 0428 PH, ARTERIAL pH units 7.404 PO2 ART mm Hg 147.0* PCO2, ARTERIAL mm Hg 42.1 HCO3 ART mmol/L 26.3* Results from last 7 days Lab Units 04/12/25 0454 MAGNESIUM mg/dL 1.7 PHOSPHORUS mg/dL 2.3* I reviewed the patient's new imaging including images and reports. Chest x-ray 04/12/2025 shows cardiomegaly with moderate bilateral diffuse interstitial disease. CTA of the head and neck from April 11, 2025 reviewed and shows bilateral groundglass interstitial disease Medication Review: Albuterol Sulfate NEB Orderable, 2.5 mg, Nebulization, Q6H - RT aspirin, 81 mg, Oral, Daily Or aspirin, 300 mg, Rectal, Daily atorvastatin, 80 mg, Oral, Nightly budesonide-formoterol, 2 puff, Inhalation, BID - RT And revefenacin, 175 mcg, Nebulization, Daily - RT [START ON 04/13/2025] clopidogrel, 75 mg, Oral, Daily doxycycline, 100 mg, Intravenous, BID famotidine, 40 mg, Oral, Daily insulin glargine, 40 Units, Subcutaneous, Daily insulin regular, 3-14 Units, Subcutaneous, Q6H isosorbide mononitrate, 60 mg, Oral, Daily magnesium sulfate, 4 g, Intravenous, Once metoprolol succinate XL, 25 mg, Oral, Daily spironolactone, 25 mg, Oral, Daily sodium chloride, 75 mL/hr, Last Rate: 75 mL/hr (04/12/25 0643) Assessment & Plan Stroke Chronic respiratory failure with hypoxia Primary hypertension Type 2 diabetes mellitus, with long-term current use of insulin 64 y.o. former smoker quit in 2001 with history of HTN, HLD, T2DM, RA, rheumatoid arthritis associated ILD, on CellCept and Rituxan, chronic hypoxemic respiratory failure on 2 to 4 L home oxygen, previously referred to transplant although patient reports she has not interested in transplant, ANDRES intolerant of CPAP, admitted 04/12/2025 after a near syncopal episode at home [facility] our facility due to concern for possible stroke.Patient reports she has had 4 or 5 days of neck pain and developed sudden onset of dizziness accompanied by headache and transient partial vision loss. Patient currently does not have any neurologic deficit. MRI of the brain is pending. Oxygen saturations are upper 90s on 2 L. Chest x-ray shows interstitial disease and [facility] Echocardiogram shows normal LVEF with negative bubble study for shunt, moderate aortic stenosis, RVSP was only 13 mmHg. Plan: 1. For syncopal event: For completeness, obtain CT angiogram to evaluate for pulmonary embolism. 2. For ILD: Try to get old CT images from [facility] for comparison. Patient has rheumatoid arthritis associated ILD getting therapy with CellCept and Rituxan. Seems like she is stable/baseline as she is satting upper 90s on baseline 2 L oxygen. 3. For possible stroke: Stroke service following. Awaiting MRI. 4. For ANDRES intolerant of CPAP: Recommended CPAP compliance. If patient is completely intolerant could consider oral appliance, defer to primary sleep provider Electronically signed by: Martin Duong MD 04/12/25 10:02 EDT *. Please note that portions of this note were completed with [employer] - a voice recognition program. * Nida Mclaughlin APRN - 04/11/2025 7:47 PM EDT Stroke Consult Note Patient Name: Karyn Sanz Age: 64 y.o. Sex: female : 1960 Primary Care Physician: No primary care provider on file. Referring Physician: TIME STROKE TEAM CALLED: 1858 EST TIME PATIENT SEEN: 242 EST Handedness: Right/ambidextrous Race: Chief Complaint/Reason for Consultation: Dizziness, syncopal episode and left- sided headache with blurry vision HPI: This is MsCarl Sanz is a 64-year-old white female, right-handed with significant health diagnosis for HTN, HLD, interstitial lung disease on 2 L nasal cannula, CAD, RA, COPD, T2DM. She presented to [facility] for presyncopal event and then became dizzy and had a left sided headache with left blurry vision. Complains of neck pain aswell. They treated her with migraine cocktail, vision has somewhat improved. CT head revealed no acute intracranial normality. CTA showed a chronic occlusion of the right vert and a likely acute occlusion of the left MD OPHTHALMOLOGIST. NIH with abnormal lab reportedfrom the outside hospital WBC [id number]. Upon arrival patient is resting in her room not in apparent distress. Alert and oriented x 4 primary RN and medicine team and her all presents during the encounter. Patient tells me that today at noon she started to feel like she is going to pass out, brain fog, pain behind her left eye, seeing spots, held herself from falling with the out hitting the floor wereable to E-Z herself to sit. Also reported left upper extremity numbness as soon as she started to feel better she took 3 doses of baby aspirin and her atorvastatin called her to report to thehospital for further evaluation. Upon her arrival to the outside hospital patient was completely free of symptoms. Currently patient has no focal neurological symptoms denies any numbness or tingling. Vision intactin all field no nystagmus or gaze preference. Tongue protrudes midline no aphasia or dysarthria or dysphagia. No ataxia or dysmetria. No focal weakness per my exam. Patient lives with her and takes care of her grandchildren independent with all ADL. Patient denies any current tobacco, alcohol, illicit drug or marijuana use. Currently patient continues markie hypertensive reported that she went to her PCP who titrated her blood pressure medication down. Last Known Normal Date/Time: 1200 EST Review of Systems Constitutional: Positive for activity change. Eyes: Positive for visual disturbance. Musculoskeletal: Positive for gait problem. Neurological: Positive for dizziness, syncope, weakness, numbness and headaches. Psychiatric/Behavioral: Positive for confusion. No past medical history on file. No past surgical history on file. No family history on file. Not on File Prior to Admission medications Not on File BP: ()/() Arterial Line BP: ()/() Neurological Exam Mental Status Alert. Oriented to person, place and time. Oriented to person, place, and time. Recent and remote memory are intact. Speech is normal. Language is fluent with no aphasia. Attention and concentration are normal. Cranial Nerves CN II: Right visual acuity: Normal. Left visual acuity: Normal. Right normal visual field. Left normal visual field. CN III, IV, : Extraocular movements intact bilaterally. Normal lids and orbits bilaterally. Pupils equal round and reactive to light bilaterally. CN V: Facial sensation is normal. CN VII: Full and symmetric facial movement. CN VIII: Intact bilaterally. CN IX, X: Palate elevates symmetrically CN XI: Shoulder shrug strength is normal. CN XII: Tongue midline without atrophy or fasciculations. Motor Normal muscle bulk throughout. No fasciculations present. Normal muscle tone. No abnormal involuntary movements. Strength is 5/5 throughout all four extremities. Sensory Light touch is normal in upper and lower extremities. No right-sided hemispatial neglect. No left-sided hemispatial neglect. Right extinction absent: Left extinction absent: Reflexes Right Plantar: downgoing Left Plantar: downgoing Coordination Right: Ixtbaw-gp-lmtx normal. Orey-ia-tuec normal.Left: Kcaofa-fb-lbut normal. Bnuo-le-nwdm normal. Gait Unable to assess. Physical Exam Constitutional: Appearance: She is obese. HENT: Head: Normocephalic and atraumatic. Mouth/Throat: Mouth: Mucous membranes are moist. Eyes: General: Lids are normal. Extraocular Movements: Extraocular movements intact. Pupils: Pupils are equal, round, and reactive to light. Cardiovascular: Rate and Rhythm: Normal rate and regular rhythm. Pulses: Normal pulses. Pulmonary: Effort: Pulmonary effort is normal. Abdominal: Tenderness: There is no abdominal tenderness. Musculoskeletal: General: Normal range of motion. Cervical back: Normal range of motion and neck supple. Skin: General: Skin is warm and dry. Capillary Refill: Capillary refill takes less than 2 seconds. Neurological: General: No focal deficit present. Mental Status: She is alert and oriented to person, place, and time. Mental status is at baseline. Motor: Motor strength is normal. Psychiatric: Mood and Affect: Mood normal. Speech: Speech normal. Behavior: Behavior normal. Thought Content: Thought content normal. Judgment: Judgment normal. Acute Stroke Data Thrombolytic Inclusion / Exclusion Criteria Time: 19:47 EDT Person Administering Scale: Nida Mclaughlin APRN YES NO INCLUSION CRITERIA CLASS I [] [] Suspected diagnosis of acute ischemic stroke with measureable neurological deficit. Low NIHSS with disabling stroke symptoms. [] [] Onset of stroke symptoms < 3 hours before beginning treatment >/ 18 years old Stroke symptom onset = time patient was last seen well or without symptoms (LKW) [] [] Onset of symptoms between 3-4.5 hours: >/= 80 years old (safe Class IIa) with history of both diabetes and prior CVA (reasonable Class IIb) AND NIHSS </= 25 *If not eligible for IV Thrombolytic consider neuro intervention for LKW within 24 hours YES NO EXCLUSION CRITERIA (CONTRAINDICATIONS) CLASS III EVIDENCE HARM [] [] Blood pressure >185/110 medically refractory to IV medications [] [] Active bleeding at a non-compressible site [] [] Active intracranial hemorrhage (ICH) [] [] Symptoms suggestive of subarachnoid hemorrhage (SAH) [] [] GI bleed within 21 days [] [] Ischemic stroke within 3 months [] [] Severe head trauma within 3 months [] [] Intracranial or intraspinal surgery within 3 months [] [] Current GI malignancy [] [] Intracranial neoplasm [] [] Infective endocarditis [] [] Aortic arch dissection [] [] Active coagulopathy with INR >1.7, platelets <100,000, PTT > 40 sec, PT > 15 sec *For warfarin, administration can begin before blood tests resulted. Discontinue for above values. [] [] Treatment dose* of LMWH (Lovenox) in last 24 hours *prophylactic dosages are not a contraindication [] [] Concurrent use of antiplatelet agents' glycoprotein inhibitors IIb/IIIa (Integrilin, etc.) [] [] Thrombin or factor Xa inhibitors (Eliquis, Xarelto, Arixtra) taken in last 48 hours YES NO CLASS II: AIS WITH THE FOLLOWING CONDITIONS - TREATMENT RISKS SHOULD BE WEIGHED AGAINST POSSIBLE BENEFITS. [] [] Major trauma in last 14 days, recent major surgery in last 14 days, intracranial arterial dissection, giant unruptured and unsecured intracranial aneurysm, pericarditis [] [] The risks, benefits, and alternatives have been discussed with the patient or family related to the administration of IV thrombolytic therapy for stroke symptoms. [] [] I have discussed and reviewed the patient's case and imaging with the attending prior to IV thrombolytic therapy. TIME na Time IV thrombolytic administered Hospital Meds: Scheduled- Infusions- No current facility-administered medications for this encounter. PRNs- Functional Status Prior to Current Stroke/Calli Score: 0 NIH Stroke Scale Time: 19:47 EDT Person Administering Scale: Nida Mclaughlin APRN Interval: baseline 1a. Level of Consciousness: 0-->Alert, keenly responsive 1b. LOC Questions: 0-->Answers both questions correctly 1c. LOC Commands: 0-->Performs both tasks correctly 2. Best Gaze: 0-->Normal 3. Visual: 0-->No visual loss 4. Facial Palsy: 0-->Normal symmetrical movements 5a. Motor Arm, Left: 0-->No drift, limb holds 90 (or 45) degrees for full 10 secs 5b. Motor Arm, Right: 0-->No drift, limb holds 90 (or 45) degrees for full 10 secs 6a. Motor Leg, Left: 0-->No drift, leg holds 30 degree position for full 5 secs 6b. Motor Leg, Right: 0-->No drift, leg holds 30 degree position for full 5 secs 7. Limb Ataxia: 0-->Absent 8. Sensory: 0-->Normal, no sensory loss 9. Best Language: 0-->No aphasia, normal 10. Dysarthria: 0-->Normal 11. Extinction and Inattention (formerly Neglect): 0-->No abnormality Total (NIH Stroke Scale): 0 Results Reviewed: I have personally reviewed current lab, radiology, and data and agree with results. WBC 17 H&H 13.4\43.1 Platelet 443 Sodium 137 Potassium 4 BUN 12 Creatinine 0.70 GFR 84 Glucose 116 Magnesium 1.5 AST 26 ALT [address] report at the outside hospital findings right common carotid mild atherosclerosis changes right carotid at the bifurcation 5% stenosis of ICA Right ICA no high-grade stenosis or dissection or occlusion Left ICA no high-grade stenosis, left common carotid mild atherosclerosis Right vertebral artery is occluded at the origin, left vertebral artery no stenosis or dissection or occlusion, left subclavian artery mild to moderate stenosis to the proximal left subclavian artery. Impression right vertebral artery occlusion at the origin age indeterminant. Left MD OPHTHALMOLOGIST near occlusion versus occlusion basilar no occlusion or significant stenosis or aneurysm right MD OPHTHALMOLOGIST Assessment/Plan: This is 64-year-old white female, right-handed with multiple vascular risk factor presents to [facility] ED for headache associated with blurry vision, dizziness, syncopal episode started at noon improvement of symptoms with migraine cocktail patient was not a candidate for IV thrombolytic therapy or mechanical thrombectomy in the setting of no focality and ED physician was more suspicion towards migraine complex, however in the setting of focal stenosis and occlusion of posterior circulation patient will be coming to our facility for full stroke workup and higher level of care. Antiplatelet MATH AND PHYSICS INSTRUCTOR: Aspirin 81 mg Anticoagulant MATH AND PHYSICS INSTRUCTOR: None presyncopal event and then became dizzy and had a left sided headache with left blurry vision Incidental finding on CTA head and neck of chronic occlusion of the right vert and a likely acute occlusion of the left MD OPHTHALMOLOGIST. Probably atherosclerosis and presence of risk factor obesity, hypertension, diabetes. -TIA/CVA order set without thrombolytic therapy has been initiated -NPO until bedside nursing dysphagia screen completed -MRI brain without contrast ordered and pending with thin slices posterior circulation, brainstem to evaluate for possible stroke pathology and burden - All outside images will be uploaded. -TTE ordered and pending to evaluate for arrhythmia -A1c and lipid panel in AM -Meds: Will initiate aspirin 81 mg p.o. or 300 mg rectal will initiate Plavix 300 mg p.o. then followed by 75 mg will continue DAPT for 21 days then Plavix monotherapy indefinite. - CTA head and neck and CT head without contrast outside hospital images will be uploaded in [employer]. - NIH\neurocheck per protocol -Activity as tolerated, fall risk precautions -PT/OT/PALLIATIVE CARE NURSE evaluation - Neurology stroke will continue to follow-up For migraine headache - Okay for migraine cocktail avoid NSAIDs - 2 g of IV mag x 1 if symptoms has not resolved - Okay for Tylenol 650 p.o. or rectal for headache pain mild to moderate. - Will recommend that patient follow-up outpatient for evaluation of migraine and management. 2. Essential hypertension, complicated by hypertensive emergency -Allow autoregulation of blood pressure for adequate cerebral blood flow -Nicardipine as needed for SBP >220 till clearance of MRI 3. Hyperlipidemia -Lipid panel in AM -Atorvastatin 80mg nightly 4. Diabetes Mellitus type 2, -A1c in AM -Maintain euglycemia -Management per primary team 5. Obesity - BMI 33.30 - Complicated aspects of care - Counseling on healthy diet exercise and weight loss Plan of care was discussed with patient, , primary RN medicine team received report from earlier [facility] day. Stroke neurology will continue to follow. Please call with any questions or concerns.Thank you for this consult. Nida Mclaughlin APRN April 11, 2025 19:47 EDT documented in this encounter Nursing Notes * Gloria Ventura, RN - 04/13/2025 6:00 PM EDT Goal Outcome Evaluation: Outcome Evaluation: Patient is A&O x4 able to voice wants and needs to staff, has complained ofhaving a Headache and was given tylenol which was effective. Lost IV site, was ok to leave IV out. Has alarms on and in place with call light within reach. 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 PT CONTINUES TO C/O MILD RESIDUAL MANLEY. AMBULATED 300 FEET AND COMPLETED DYNAMIC BALANCE ACTIVITY WITH NO LOB ORDIFFICULTY. PT IS SOA WITH ACTIVITY ON 2L WITH DROP IN O2 SATS TO 87%, BUT QUICKLY REBOUNDS TO 94% WITH REST AND CUES FOR PLB. PT USED ROLLATOR MATH AND PHYSICS INSTRUCTOR PRN FOR FATIGUE/SOA WITH COMMUNITY MOBILITY. WILL DEFER TO NSG FOR CONTINUED AMBULATION IN HALLS. RECOMMEND HOME WITH FAMILY AT D/C. P.T. IS SIGNING OFF. Anticipated Discharge Disposition (PT): home * Caitie Posadas, OT - 04/12/2025 1:44 PM EDT Goal Outcome Evaluation: Plan of Care Reviewed With: patient, spouse Progress: no change (Initial Eval/Discharge) Outcome Evaluation: Patient presenting at or near her functional baseline w/ mobility, transfers and balance. Pt completed ADLs independently. No skilled OT warranted at this time, OT signing off. Recommend home w/ family when medically appropriate for d/c. Anticipated Discharge Disposition (OT): home with assist * Karley Goodwin RN - 04/12/2025 7:52 AM EDT Goal Outcome Evaluation: Outcome Evaluation: NIH 0, a/ox4, on 3L at baseline with 4-5L with ambulation as needed. no complaints of headache, nausea, or dizziness upon arrival to the floor. TIA w/u per stroke. 500mL bolus given for lactic 2.6. blood cultures, u/a & cxr ordered and obtained. fluids started. IV abx started. RPP w/ covid swab sent down. pt able to ambulate to bathroom with no dizziness or weakness or shor tness of air, stand by. mag 1.5 and replacement protocol put in, dayshift RN aware. pt at bedside. bed alarm set and call light within reach. documented in this encounter Miscellaneous Notes * Case Management/Social Work - Marichuy Molina V RN - 04/12/2025 4:15 PM EDT Continued Stay Note [facility] Fall Patient Name: Karyn Sanz Today's Date: 04/12/2025 Admit Date: 04/12/2025 Plan: Home Discharge Plan Row Name 04/12/25 1610 Plan Plan Home Patient/Family in Agreement with Plan yes Plan Comments Met with Ms. Sanz , Emmanuel, at the bedside, for discharge planning. Ms. Sanz was off the floor for CT at time of visit. Ms. Sanz lives with her , in [facility]. Prior to admission, the patient ambulated iwht a rollator PRN. She also has Oxygen at 2-4 L continuous per NC, provided by In[employer]. The O2 is bled into her CPAP qhs. PCP is Meet Kelsey. Insurance is Medicare with prescription drug coverage. No ACP documents. Ms. Sanz was evaluated by PT, OT and PALLIATIVE CARE NURSE, and cleared for home. DC plan is to return home with Emmanuel's assistance. Emmanuel will be transporting his home when discharged. CM will continue to follow. Final Discharge Disposition Code 01 - home or self-care Expected Discharge Date and Time Expected Discharge Date Expected Discharge Time Apr 15, 2025 Marichuy Molina RN documented in this encounter Plan of Treatment Upcoming Encounters Date Type Department Care Team (Late st Contact Info) Description 06/27/2025 11:00 AM EDT Office Visit [facility] [address] [place] [address] Margarita Blanc APRN [address] [place] [address] Scheduled Orders Name Type Priority Associated Diagnoses Orde r Schedule Check Blood Glucose - Fingerstick Point of Care Testing Routine Type 2 diabetes mellitus with hyperglycemia, with long-term current use of insulin Ordered: 04/14/2025 Scheduled Referrals Name Type Priority Associated Diagnoses Orde r Schedule Ambulatory Referral to Neurology Outpatient Referral Routine Transient neurologic deficit Ordered: 04/13/2025 Ambulatory Referral to [facility] Outpatient Referral Routine Transient neurologic deficit Transient neurological symptoms Ordered: 04/14/2025 documented as of this encounter Procedures Procedure Name Priority Date/Time Associated Diagnosis Comments MOBILE CARDIAC OUTPATIENT TELEMETRY Routine 04/14/2025 3:56 PM EDT Syncope and collapse POCT GLUCOSE FINGERSTICK Routine 04/14/2025 11:06 AM EDT DUPLEX CAROTID BILATERAL CAR - PERFORMED PROCEDURE Routine 04/14/2025 11:00 AM EDT POCT GLUCOSE FINGERSTICK Routine 04/14/2025 7:44 AM EDT POCT GLUCOSE FINGERSTICK Routine 04/13/2025 7:39 PM EDT POCT GLUCOSE FINGERSTICK Routine 04/13/2025 4:50 PM EDT POCT GLUCOSE FINGERSTICK Routine 04/13/2025 11:39 AM EDT CBC (NO DIFF) Routine 04/13/2025 8:21 AM EDT B-TYPE NATRIURETIC PEPTIDE Routine 04/13/2025 8:21 AM EDT BASIC METABOLIC PANEL Routine 04/13/2025 8:21 AM EDT POCT GLUCOSE FINGERSTICK Routine 04/13/2025 7:47 AM EDT MRI BRAIN WO CONTRAST Today 04/13/2025 1:51 AM EDT POCT GLUCOSE FINGERSTICK Routine 04/12/2025 7:52 PM EDT MAGNESIUM Routine 04/12/2025 5:[address] ANGIOGRAM CHEST W WO CONTRAST STAT 04/12/2025 4:54 PM EDT POCT GLUCOSE FINGERSTICK Routine 04/12/2025 4:24 PM EDT LACTIC ACID, REFLEX STAT 04/12/2025 2 :12 PM EDT ECHO COMPLETE W/ DOPPLER, COLOR FLOW AND CONTRAST Routine 04/12/2025 12:41 PM EDT LACTIC ACID, REFLEX STAT 04/12/2025 1 1:22 AM EDT POCT GLUCOSE FINGERSTICK Routine 04/12/2025 11:18 AM EDT BLOOD CULTURE STAT 04/12/2025 9:13 AM EDT LACTIC ACID, REFLEX STAT 04/12/2025 9 :04 AM EDT HIGH SENSITIVITIY TROPONIN T 1HR Timed 04/12/2025 9:04 AM EDT BLOOD CULTURE STAT 04/12/2025 9:04 AM EDT MAGNESIUM Routine 04/12/2025 9:04 AM EDT POCT GLUCOSE FINGERSTICK Routine 04/12/2025 7:15 AM EDT URINALYSIS W/ CULTURE IF INDICATED STAT 04/12/2025 6:48 AM EDT XR CHEST 1 VW Routine 04/12/2025 6:39 AM EDT RESPIRATORY PANEL PCR W/ COVID-19 (SARS-COV-2), GEAR DESIGN ENGINEER SWAB IN UTM/VTP, 2 HR TAT Routine 04/12/2025 5:59 AM EDT P2Y12 PLATELET INHIBITION Timed 04/12/2025 4:54 AM EDT CBC WITH AUTO DIFFERENTIAL Routine 04/12/2025 4:54 AM EDT TROPONIN Routine 04/12/2025 4:54 AM EDT PROTIME-INR Routine 04/12/2025 4:54 AM EDT PHOSPHORUS Routine 04/12/2025 4:54 AM EDT MAGNESIUM Routine 04/12/2025 4:54 AM EDT LACTIC ACID, PLASMA Routine 04/12/2025 4 :54 AM EDT HEMOGLOBIN A1C Urgent 04/12/2025 4:54 AM EDT LIPID PANEL Urgent 04/12/2025 4:54 AM EDT COMPREHENSIVE METABOLIC PANEL Routine 04/12/2025 4:54 AM EDT ECG 12-LEAD Routine 04/12/2025 4:44 AM EDT BLOOD GAS, ARTERIAL W/CO-OXIMETRY Routine 04/12/2025 4:28 AM EDT POCT GLUCOSE FINGERSTICK Routine 04/12/2025 2:49 AM EDT SCANNED EKG 04/12/2025 SCANNED - IMAGING 04/12/2025 SCANNED - IMAGING 04/12/2025 SCANNED - IMAGING 04/12/2025 CT OUTSIDE SPINE Routine 04/11/2025 12:[address] OUTSIDE NECK Routine 04/11/2025 12:[address] OUTSIDE HEAD Routine 04/11/2025 12:[address] OUTSIDE HEAD Routine 04/11/2025 12:00 AM EDT documented in this encounter Results * MOBILE CARDIAC OUTPATIENT TELEMETRY (04/14/2025 3:56 PM EDT) Heart rate minimum 67 bpm [employer] Heart rate maximum 141 bpm [employer] Heart rate (average) 86 bpm [employer] V-Tach - number of episodes 0 [employer] SVT - number of episodes 2 [employer] SVT - heart rate minimum 88 bpm [employer] SVT - heart rate maximum 141 bpm [employer] SVT - heart rate (average) 120 bpm [employer] Longest SVT episode start 04/23/2025 12:34:12 AM EDT [employer] Longest SVT episode end 04/23/2025 12:34:16 AM EDT [employer] Longest SVT episode - duration 3.8 sec [employer] Longest SVT episode - number of beats 8 beats [employer] Longest SVT episode - heart rate min 110 bpm [employer] Longest SVT episode - heart rate max 141 bpm [employer] Longest SVT episode - heart rate (average) 121 bpm [employer] SVT with fastest heart rate start 04/23/2025 12:34:12 AM EDT [employer] SVT with fastest heart rate end 04/23/2025 12:34:16 AM EDT [employer] SVT with fastest heart rate - duration 3.8 sec [employer] SVT with fastest heart rate - number of beats 8 beats [employer] SVT with fastest heart rate - heart rate min 110 bpm [employer] SVT with fastest heart rate - heart rate max 141 bpm [employer] SVT with fastest heart rate - heart rate (average) 121 bpm [employer] Pause - number of episodes 0 [employer] Isolated SVE frequency Rare [employer] Isolated SVE count 258 episodes [employer] Ectopic SVE isolated percent 0.02 % [employer] SVE couplets frequency Rare [employer] SVE couplets counts 13 episodes [employer] Ectopic SVE couplet percent 0 % [employer] SVE triplets frequency Rare [employer] SVE triplets counts 1 episodes [employer] Ectopic SVE triplet percent 0 % [employer] Isolated VE frequency Rare [employer] Isolated VE counts 358 episodes [employer] Ectopic VE isolated percent 0.02 % [employer] VE couplets frequency Rare [employer] VE couplets counts 19 episodes [employer] Ectopic VE couplet percent 0 % [employer] VE triplets frequency 0 [employer] VE triplets counts 0 episodes [employer] Ectopic VE triplet percent 0 % [employer] Enrollment period start 04/14/2025 3:42:50 PM EDT [employer] Enrollment period end 04/28/2025 8:33:15 AM EDT [employer] Total enrollment period 13 days 17 hours [employer] Device analysis time 13 days 1 hour [employer] Total patient event diaries 0 [employer] Total patient event triggers 5 [employer] Combined report prescription status COMPLETE [employer] Anatomical Region Laterality Modality Other Narrative 05/10/2025 9:13 AM EDT Patient had a min HR of 67 bpm, max HR of 141 bpm, and avg HR of 86 bpm. Predominant underlying rhythm was Sinus Rhythm. 2 Supraventricular Tachycardia runs occurred, the run with the fastest interval lasting 8 beats with a max rate of 141 bpm (avg 121 bpm); the run with the fastest interval was also the longest. Isolated SVEs were rare (<1.0%), SVE Couplets were rare (<1.0%), and SVE Triplets were rare (<1.0%). Isolated VEs were rare (<1.0%), VE Couplets were rare (<1.0%), and no VE Triplets were present. Study Description Monitor placed on patient 04/14/2025 3:42:50 PM EDT . Instructions were provided to patient on use of holter monitor and duration of monitoring. The patient was monitored for 13 days 1 hour. Average HR: 86. Min HR: 67. Max HR: 141. Vee León APRN CV CARDIAC SERVICE S ORDERABLES Final Result * POC Glucose Once (04/14/2025 11:06 AM EDT) Glucose 94 70 - 130 mg/dL 04/14/2025 11:08 AM EDT [facility] Blood 04/14/2025 11:0 6 AM EDT 04/14/2025 11:08 AM EDT Tevin Lees MD POINT OF CARE TEST ORDERABLES Final Result [facility]
[address] [place] [address], * DUPLEX CAROTID BILATERAL CAR - PERFORMED PROCEDURE (04/14/2025 11:00 AM EDT) [facility] Prox CCA PSV 66.2 cm/sec Prox CCA EDV 14.5 cm/sec Right Mid CCA PSV 55.8 cm/sec right Mid CCA EDV 15.6 cm/sec Dist CCA PSV 56.3 cm/sec Dist CCA EDV 16.0 cm/sec Prox ICA PSV 53.0 cm/sec Prox ICA EDV 18.6 cm/sec Mid ICA PSV 71.9 cm/sec Mid ICA EDV 24.5 cm/sec Dist ICA PSV 63.4 cm/sec Dist ICA EDV 20.4 cm/sec Prox ECA PSV 76.2 cm/sec Prox ECA EDV 9.0 cm/sec Vertebral A PSV 38.8 cm/sec Vertebral A EDV 4.0 cm/sec Prox CCA PSV 88.0 cm/sec Prox CCA EDV 21.3 cm/sec left Mid CCA PSV 67.9 cm/sec left Mid CCA EDV 19.5 cm/sec Dist CCA PSV 55.1 cm/sec Dist CCA EDV 17.0 cm/sec Prox ICA PSV 52.7 cm/sec Prox ICA EDV 20.9 cm/sec Mid ICA PSV 77.9 cm/sec Mid ICA EDV 29.4 cm/sec Dist ICA PSV 54.7 cm/sec Dist ICA EDV 19.7 cm/sec Prox ECA PSV 72.4 cm/sec Prox ECA EDV 9.9 cm/sec Vertebral A PSV 49.3 cm/sec Vertebral A EDV 18.8 cm/sec Prox SCLA PSV 133.9 cm/sec Prox SCLA PSV 241.6 cm/sec ICA/CCA ratio 1.09 ICA/CCA ratio 0.89 Right arm BP 112/64 mmHg Anatomical Region Laterality Modality Ultrasound Narrative 04/14/2025 12:35 PM EDT Right internal carotid artery demonstrates a less than 50% stenosis. Antegrade right vertebral flow. Left internal carotid artery demonstrates a less than 50% stenosis. Antegrade left vertebral flow. Study Impression Right ICA: Imaging indicates <50% stenosis. Left ICA: Imaging indicates <50% stenosis. Study Findings Right CCA Prox: No plaque visualized. Right CCA Mid: No plaque visualized. Right CCA Dist: Irregular calcified heterogeneous plaque present. Right Carotid Bulb: Irregular calcified heterogeneous plaque present. Right ICA Prox: Irregular heterogeneous plaque present. Right ICA Mid: No plaque visualized. Right ICA Dist: No plaque visualized. Right ECA: No plaque visualized. Right Vertebral: Antegrade flow noted. Left CCA Prox: No plaque visualized. Left CCA Mid: No plaque visualized. Left CCA Dist: No plaque visualized. Left Carotid Bulb: Smooth homogeneous plaque present. Left ICA Prox: Smooth homogeneous plaque present. Left ICA Mid: No plaque visualized. Left ICA Dist: No plaque visualized. Left ECA: Irregular heterogeneous plaque present. Left Vertebral: Antegrade flow noted. No elevated velocities detected in bilateral ICA. Antegrade flow detected in Vertebral Arteries, bilaterally. No prior exams for comparison. Additional Study Details Study performed at bedside. The study is technically adequate for diagnosis. The quality of the study is limited due to patient positioning. Vee León APRN CV VASCULAR ORDERA BLES Final Result * POC Glucose Once (04/14/2025 7:44 AM EDT) Glucose 83 70 - 130 mg/dL 04/14/2025 7:45 AM EDT [facility] Blood 04/14/2025 7:44 AM EDT 04/14/2025 7:45 AM EDT Tevin Lees MD POINT OF CARE TEST ORDERABLES Final Result [facility]
[address] [place] [address], * (ABNORMAL) POC Glucose Once (04/13/2025 7:39 PM EDT) Glucose 192(H) 70 - 130 mg/dL 04/13/2025 7:40 PM EDT [facility] Blood 04/13/2025 7:39 PM EDT 04/13/2025 7:40 PM EDT us Tevin Lees MD POINT OF CARE TEST ORDERABLES Final Result Performing Organization Address [facility] Co de Phone Number [facility] LABORATORY
[address] [place] [address], * POC Glucose Once (04/13/2025 4:50 PM EDT) Glucose 86 70 - 130 mg/dL 04/13/2025 4:51 PM EDT [facility] Blood 04/13/2025 4:50 PM EDT 04/13/2025 4:51 PM EDT us Tevin Lees MD POINT OF CARE TEST ORDERABLES Final Result Performing Organization Address [facility] de Phone Number [facility]
[address] [place] [address], * POC Glucose Once (04/13/2025 11:39 AM EDT) Glucose 102 70 - 130 mg/dL 04/13/2025 11:40 AM EDT [facility] Blood 04/13/2025 11:3 9 AM EDT 04/13/2025 11:40 AM EDT us Tevin Lees MD POINT OF CARE TEST ORDERABLES Final Result Performing Organization Address [facility] Co de Phone Number [facility]
[address] [place] [address], [place] [phone] * (ABNORMAL) Basic Metabolic Panel (04/13/2025 8:21 AM EDT) Glucose 84 65 - 99 mg/dL 04/13/2025 9:33 AM EDT [facility] BUN 12.0 8.0 - 23.0 mg/dL 04/13/2025 9:33 AM EDT [facility] Creatinine 0.58 0.57 - 1.00 mg/dL 04/13/2025 9:33 AM T [facility] Sodium 140 136 - 145 mmol/L 04/13/2025 9:33 AM EDT [facility] Potassium 4.3 3.5 - 5.2 mmol/L 04/13/2025 9:33 AM T [facility] Comment:Slight hemolysis det ected by analyzer. Result may be falsely elevated. Chloride 104 98 - 107 mmol/L 04/13/2025 9:33 AM EDT [facility] CO2 23.0 22.0 - 29.0 mmol/L 04/13/2025 9:33 AM T [facility] Calcium 8.5(L) 8.6 - 10.5 mg/dL 04/13/2025 9:33 AM [facility] BUN/Creatinine Ratio 20.7 7.0 - 25.0 04/13/2025 9:33 AM T [facility] Anion Gap 13.0 5.0 - 15.0 mmol/L 04/13/2025 9:33 AM [facility] eGFR 99.9 >60.0 mL/min/1.7 3 04/13/2025 9:33 AM [facility] Blood Venipuncture / Unknown 04/13/2025 8:21 AM EDT 04/13/2025 8:54 AM EDT [facility]ORY - 04/13/2025 9:33 AM EDT GFR Categories in Chronic Kidney Disease (CKD) GFR Category GFR (mL/min/1.73) Interpretation G1 90 or greater Normal or high (1) G2 60-89 Mild decrease (1) G3a 45-59 Mild to moderate decrease G3b 30-44 Moderate to severe decrease G4 15-29 Severe decrease G5 14 or less Kidney failure (1)In the absence of evidence of kidney disease, neither GFR category G1 or G2 fulfill the criteria for CKD. eGFR calculation 2020 CKD-EPI creatinine equation, which does not include race as a factor us Tevin Lees MD LAB BLOOD ORDERABLES Final Res ult [facility]
[address] [place] [address], * (ABNORMAL) CBC (No Diff) (04/13/2025 8:21 AM EDT) WBC 22.49(H) 3.40 - 10.80 10*3/mm3 04/13/2025 9:00 AM EDT [facility] RBC 4.17 3.77 - 5.28 10*6/mm3 04/13/2025 9:00 AM EDT [facility] Hemoglobin 11.8(L) 12.0 - 15.9 g/dL 04/13/2025 9:00 AM EDT [facility] Hematocrit 36.9 34.0 - 46.6 % 04/13/2025 9:00 AM EDT [facility] MCV 88.5 79.0 - 97.0 fL 04/13/2025 9:00 AM EDT [facility] MCH 28.3 26.6 - 33.0 pg 04/13/2025 9:00 AM EDT [facility] MCHC 32.0 31.5 - 35.7 g/dL 04/13/2025 9:00 AM EDT [facility] RDW 13.0 12.3 - 15.4 % 04/13/2025 9:00 AM EDT [facility] RDW-SD 41.6 37.0 - 54.0 fl 04/13/2025 9:00 AM EDT [facility] MPV 10.3 6.0 - 12.0 fL 04/13/2025 9:00 AM EDT [facility] Platelets 385 140 - 450 10*3/mm3 04/13/2025 9:00 AM EDT [facility] Blood Venipuncture / Unknown 04/13/2025 8:21 AM EDT 04/13/2025 8:53 AM EDT us Tevin Lees MD LAB BLOOD ORDERABLES Final Res ult [facility]
[address] [place] [address], * BNP (04/13/2025 8:21 AM EDT) proBNP 170.9 0.0 - 900.0 pg/mL 04/13/2025 9:22 AM EDT [facility] Blood Venipuncture / Unknown 04/13/2025 8:21 AM EDT 04/13/2025 8:54 AM EDT Narrative [facility] - 04/13/2025 9:22 AM EDT This assay is used as an aid in the diagnosis of individuals suspected of having heart failure. It can be used as an aid in the diagnosis of acute decompensated heart failure (ADHF) in patients presenting with signs and symptoms of ADHF to the emergency department (ED). In addition, NT-proBNP of <300 pg/mL indicates ADHF is not likely. Age Range Result Interpretation NT-proBNP Concentration (pg/mL: <50 Positive >450 [place] 300-450 Negative <300 50-75 Positive >900 [place] 300-900 Negative <300 >75 Positive >1800 [place] 300-1800 Negative <300 Shakira Barney MD LAB BLOOD ORDERABLES Final Re sult Performing Organization Address City/[facility]/ZIP Co de Phone Number [facility]
[address] [place] [address], * POC Glucose Once (04/13/2025 7:47 AM EDT) Glucose 83 70 - 130 mg/dL 04/13/2025 7:48 AM EDT [facility] Blood 04/13/2025 7:47 AM EDT 04/13/2025 7:48 AM EDT Tevin Lees MD POINT OF CARE TEST ORDERABLES Final Result [facility]
[address] [id number], * MRI Brain Without Contrast (04/13/2025 1:51 AM EDT) Anatomical Region Laterality Modality Head, Neck N/A Magnetic Resonan ce 04/13/2025 2:47 AM EDT Impressions 04/13/2025 2:53 AM EDT 1.No acute or subacute ischemia. No acute hemorrhage. 2.Tiny old lacunar infarct left thalamus. 3.Mild age-appropriate atrophy. Electronically Signed: Jason Flores MD 04/13/2025 2:53 AM EDT Workstation ID: [id number] Narrative 04/13/2025 2:53 AM EDT MRI BRAIN WO CONTRAST Date of Exam: 04/13/2025 1:17 AM EDT Indication: Stroke, follow up Rule out stroke symptoms dizziness syncopal episode. Comparison: Outside head CT 04/11/2025 Technique: Routine multiplanar/multisequence sequence images of the brain were obtained without contrast administration. Findings: Diffusion images reveal no acute or subacute ischemia. There is generalized atrophy. There is a tiny old lacunar infarct in the left thalamus. White matter signal is essentially normal for patient age without significant small vessel ischemic disease. No acute hemorrhage is identified. Craniocervical junction is normal. Pituitary unremarkable. No masses are identified. Major intracranial flow voids are maintained. Procedure Note Jason Flores MD - 04/13/2025 MRI BRAIN WO CONTRAST Date of Exam: 04/13/2025 1:17 AM EDT Indication: Stroke, follow up Rule out stroke symptoms dizziness syncopal episode. Comparison: Outside head CT 04/11/2025 Technique: Routine multiplanar/multisequence sequence images of the brainwere obtained without contrast administration. Findings: Diffusion images reveal no acute or subacute ischemia. There isgeneralized atrophy. There is a tiny old lacunar infarct in the leftthalamus. White matter signal is essentially normal for patient agewithout significant small vessel ischemic disease. No acute hemorrhage is identified. Craniocervical junction is normal.Pituitary unremarkable. No masses are identified. Major intracranial flowvoids are maintained. IMPRESSION: 1.No acute or subacute ischemia. No acute hemorrhage. 2.Tiny old lacunar infarct left thalamus. 3.Mild age-appropriate atrophy. Electronically Signed: Jason Flores MD 04/13/2025 2:53 AM EDT Workstation ID: [id number] us Nida Mclaughlin APRN IMG MRI ORDERABLES Ciera l Result * (ABNORMAL) POC Glucose Once (04/12/2025 7:52 PM EDT) Glucose 248(H) 70 - 130 mg/dL 04/12/2025 7:53 PM EDT [facility] Blood 04/12/2025 7:52 PM EDT 04/12/2025 7:53 PM EDT Tevin Lees MD POINT OF CARE TEST ORDERABLES Final Result Performing Organization Address City/[facility]/ZIP Co de Phone Number [facility]
[address] [place] [address], * Magnesium (04/12/2025 5:48 PM EDT) Magnesium 2.2 1.6 - 2.4 mg/dL 04/12/2025 6:28 PM EDT [facility] Blood Venipuncture / Unknown 04/12/2025 5:48 PM EDT 04/12/2025 5:53 PM EDT Tevin Lees MD LAB BLOOD ORDERABLES Final Res ult Performing Organization Address City/[facility]/ZIP Co de Phone Number [facility]
[address] [place] [address], * CT Angiogram Chest (04/12/2025 4:54 PM EDT) Anatomical Region Laterality Modality Chest, Vascular N/A Computed Tomogra phy 04/12/2025 5:10 PM EDT Impressions 04/12/2025 5:13 PM EDT Impression: 1.No evidence of pulmonary embolism nor other acute cardiopulmonary process. 2.Nonspecific interstitial lung changes with a degree of fibrosis most pronounced in the periphery of the lung bases. Electronically Signed: Artem Fox MD 04/12/2025 5:13 PM EDT Workstation ID: [id number] Narrative 04/12/2025 5:[address] ANGIOGRAM CHEST Date of Exam: 04/12/2025 4:48 PM EDT Indication: near syncope. Comparison: None available. Technique: CTA of the chest was performed before and after the uneventful intravenous administration of 80 cc Isovue-370. Reconstructed coronal and sagittal images were also obtained. In addition, a 3-D volume rendered image was created for interpretation. Automated exposure control and iterative reconstruction methods were used. Findings: PULMONARY VASCULATURE: Pulmonary arteries are widely patent without evidence of embolus. Main pulmonary artery is mildly enlarged measuring 3.3 cm in diameter suggesting pulmonary arterial hypertension. MEDIASTINUM: There are aortic valvular calcifications. There is minimal calcification of the mitral valve annulus. Aortic and heart size are normal. No aortic dissection identified. No mass nor pericardial effusion. CORONARY ARTERIES: No calcified atherosclerotic disease. LUNGS: No consolidation or suspicious nodule. There is cylindrical bronchiectasis mild in severity with areas of nonspecific reticular interstitial prominence and a degree of central to lower lung fibrosis peripherally. PLEURAL SPACE: No effusion, mass, nor pneumothorax. LYMPH NODES: There are no pathologically enlarged lymph nodes. UPPER ABDOMEN: Unremarkable OSSEOUS STRUCTURES: Appropriate for age with no acute process identified. Procedure Note Artem Fox MD - 04/12/2025 CT ANGIOGRAM CHEST Date of Exam: 04/12/2025 4:48 PM EDT Indication: near syncope. Comparison: None available. Technique: CTA of the chest was performed before and after the uneventfulintravenous administration of 80 cc Isovue-370. Reconstructed coronal andsagittal images were also obtained. In addition, a 3-D volume renderedimage was created for interpretation. Automated exposure control and iterative reconstructionmethods were used. Findings: PULMONARY VASCULATURE: Pulmonary arteries are widely patent withoutevidence of embolus. Main pulmonary artery is mildly enlarged measuring3.3 cm in diameter suggesting pulmonary arterial hypertension. MEDIASTINUM: There are aortic valvular calcifications. There is minimalcalcification of the mitral valve annulus. Aortic and heart size arenormal. No aortic dissection identified. No mass nor pericardialeffusion. CORONARY ARTERIES: No calcified atherosclerotic disease. LUNGS: No consolidation or suspicious nodule. There is cylindricalbronchiectasis mild in severity with areas of nonspecific reticularinterstitial prominence and a degree of central to lower lung fibrosisperipherally. PLEURAL SPACE: No effusion, mass, nor pneumothorax. LYMPH NODES: There are no pathologically enlarged lymph nodes. UPPER ABDOMEN: Unremarkable OSSEOUS STRUCTURES: Appropriate for age with no acute processidentified. IMPRESSION: Impression: 1.No evidence of pulmonary embolism nor other acute cardiopulmonaryprocess. 2.Nonspecific interstitial lung changes with a degree of fibrosis mostpronounced in the periphery of the lung bases. Electronically Signed: Artem Fox MD 04/12/2025 5:13 PM EDT Workstation ID: [id number] Martin Duong MD IMG CT ORDERABLES Final Resu lt * (ABNORMAL) POC Glucose Once (04/12/2025 4:24 PM EDT) Glucose 145(H) 70 - 130 mg/dL 04/12/2025 4:28 PM EDT [facility] Blood 04/12/2025 4:24 PM EDT 04/12/2025 4:28 PM EDT Tevin Lees MD POINT OF CARE TEST ORDERABLES Final Result [facility]
[address] [place] [address], * (ABNORMAL) STAT Lactic Acid, Reflex (04/12/2025 2:12 PM EDT) Lactate 2.5(HH) 0.5 - 2.0 mmol/L 04/12/2025 3:09 PM EDT [facility] Comment:Falsely depressed re sults may occur on samples drawn from patients receiving N-Acetylcysteine (NAC) or Metamizole. Blood Venipuncture / Unknown 04/12/2025 2:12 PM EDT 04/12/2025 2:27 PM EDT Shakira Barney MD LAB BLOOD ORDERABLES Final Re sult [facility]
[address] [id number], * ECHO COMPLETE W/ DOPPLER, COLOR FLOW AND CONTRAST (04/12/2025 12:41 PM EDT) EF(MOD-bp) 74.2 % LVIDd 3.9 cm LVIDs 2.46 cm IVSd 1.07 cm LVPWd 0.60 cm FS 37.3 % IVS/LVPW 1.78 cm ESV(cubed) 14.9 ml LV Sys Vol (BSA corrected) 11.6 cm2 EDV(cubed) 60.3 ml LV Young Vol (BSA corrected) 45.0 cm2 LV mass(C)d 95.7 grams LVOT area 2.9 cm2 LVOT diam 1.92 cm EDV(MOD-sp2) 41.3 ml EDV(MOD-sp4) 84.8 ml ESV(MOD-sp2) 12.0 ml ESV(MOD-sp4) 21.9 ml SV(MOD-sp2) 29.3 ml SV(MOD-sp4) 62.9 ml SVi(MOD-SP2) 15.6 ml/m2 SVi(MOD-SP4) 33.4 ml/m2 SVi (LVOT) 39.1 ml/m2 EF(MOD-sp2) 70.9 % EF(MOD-sp4) 74.2 % MV E max jan 74.6 cm/sec MV A max jan 122.5 cm/sec MV dec time 0.07 sec MV E/A 0.61 IVRT 102.0 ms LA ESV Index (BP) 23.1 ml/m2 Med Peak E' Jan 9.2 cm/sec Lat Peak E' Jan 10.6 cm/sec TR max jan 164.2 cm/sec Avg E/e' ratio 7.54 SV(LVOT) 73.6 ml RV Base 3.3 cm RV Mid 2.8 cm RV Length 6.3 cm TAPSE (>1.6) 2.30 cm RV S' 10.2 cm/sec LA dimension (2D) 3.3 cm LV V1 max 118.7 cm/sec LV V1 max PG 5.6 mmHg LV V1 mean PG 3.2 mmHg LV V1 VTI 25.5 cm Ao pk jan 305.4 cm/sec Ao max PG 37.3 mmHg Ao mean PG 19.0 mmHg Ao V2 VTI 61.3 cm ASHOK(I,D) 1.20 cm2 Dimensionless Index 0.42 (DI) MV max PG 11.5 mmHg MV mean PG 5.0 mmHg MV V2 VTI 25.7 cm MVA(VTI) 2.9 cm2 MV dec slope 1,114 cm/sec2 TR max PG 10.8 mmHg PA V2 max 126.2 cm/sec PA acc time 0.09 sec Ao root diam 2.7 cm BH CV ECHO SHUNT ASSESSMENT PERFORMED (HIDDEN SCRIPTING) 1 RVSP(TR) 13 mmHg RAP systole 3 mmHg Anatomical Region Laterality Modality Ultrasound Narrative 04/12/2025 1:49 PM EDT Left ventricular systolic function is hyperdynamic (EF > 70%). Calculated left ventricular EF = 74.2% Left ventricular diastolic function is consistent with (grade I) impaired relaxation. Saline test results are negative. Moderate aortic valve stenosis is present. Aortic valve area is 1.2 cm2. Peak velocity of the flow distal to the aortic valve is 305.4 cm/s. Aortic valve maximum pressure gradient is 37 mmHg. Aortic valve mean pressure gradient is 19 mmHg. Aortic valve dimensionless index is 0.42 . Estimated right ventricular systolic pressure from tricuspid regurgitation is normal (<35 mmHg). Calculated right ventricular systolic pressure from tricuspid regurgitation is 13 mmHg. Left Ventricle Left ventricular systolic function is hyperdynamic (EF > 70%). Calculated left ventricular EF = 74.2% Normal left ventricular cavity size and wall thickness noted. All left ventricular wall segments contract normally. Left ventricular diastolic function is consistent with (grade I) impaired relaxation. Right Ventricle Normal right ventricular cavity size, wall thickness, systolic function and septal motion noted. Left Atrium Normal left atrial size and volume noted. No evidence of a patent foramen ovale. No evidence of an atrial septal defect present. Saline test results are negative. Right Atrium Normal right atrial cavity size noted. Mitral Valve Moderate mitral annular calcification is present. There is moderate calcification of the mitral valve. There is bileaflet mitral valve thickening present. Tricuspid Valve Estimated right ventricular systolic pressure from tricuspid regurgitation is normal (<35 mmHg). Calculated right ventricular systolic pressure from tricuspid regurgitation is 13 mmHg. Aortic Valve The aortic valve is abnormal in structure. The aortic valve exhibits sclerosis. There is moderate calcification of the aortic valve mainly affecting the non-coronary, left coronary and right coronary cusp(s). There is thickening of the aortic valve. Moderate aortic valve stenosis is present. Aortic valve area is 1.20 cm2. Peak velocity of the flow distal to the aortic valve is 305.4 cm/s. Aortic valve maximum pressure gradient is 37.3 mmHg. Aortic valve mean pressure gradient is 19.0 mmHg. Aortic valve dimensionless index is 0.42 . Pulmonic Valve The pulmonic valve is structurally normal with no regurgitation or significant stenosis present. Pericardium The pericardium is normal. There is no evidence of pericardial effusion. . Greater Vessels No dilation of the aortic root is present. Aortic root = 2.7 cm No dilation of the sinuses of Valsalva is present. The inferior vena cava is normally sized. Normal IVC inspiratory collapse of greater than 50% noted. Study Quality The study is technically adequate for diagnosis. The quality of the study is limited due to lung diseasewith poor acoustic windows. Normal sinus was the predominant rhythm observed during the procedure. Enhancement Agent Details Verbal consent was obtained from the patient to use Lumason image enhancer in order to optimize the study. The use of Lumason was indicated to improve delineation of the left ventricular endocardial border. 5 mL of Lumason was manually activated. A total of 3 mL of the activated Lumason was administered and the remaining contrast was wasted and discarded. No adverse reaction to image enhancer was noted. Shunt Assessment Verbal consent was obtained from the patient for use of agitated saline to assess for shunting. A total of 20 mL of agitated saline was administered. us [facility] CV ECHO ORDERABLES Ciera l Result * (ABNORMAL) STAT Lactic Acid, Reflex (04/12/2025 11:22 AM EDT) Lactate 3.4(HH) 0.5 - 2.0 mmol/L 04/12/2025 12:32 PM EDT [facility] Comment:Falsely depressed re sults may occur on samples drawn from patients receiving N-Acetylcysteine (NAC) or Metamizole. Blood Venipuncture / Unknown 04/12/2025 11:22 AM EDT 04/12/2025 11:50 AM EDT Shakira Barney MD LAB BLOOD ORDERABLES Final Re sult Performing Organization Address [facility]/ZIP Co de Phone Number [facility]
[address] [place] [address], * (ABNORMAL) POC Glucose Once (04/12/2025 11:18 AM EDT) Glucose 249(H) 70 - 130 mg/dL 04/12/2025 11:20 AM EDT [facility] Blood 04/12/2025 11:1 8 AM EDT 04/12/2025 11:20 AM EDT Tevin Lees MD POINT OF CARE TEST ORDERABLES Final Result Performing Organization Address [facility] Co de Phone Number [facility]
[address] [place] [address], * Blood Culture - Blood, Hand, Right (04/12/2025 9:13 AM EDT) Blood Culture No growth at 5 days 04/17/2025 10:30 AM EDT [facility] Blood Structure of right hand / Unknown Venipuncture / Unknown 04/12/2025 9:13 AM EDT 04/12/2025 10:29 AM EDT Narrative [facility] - 04/17/2025 10:30 AM EDT Aerobic Bottle Only Less than seven (7) mL's of blood was collected. Insufficient quantity may yield false negative results. Shakira Barney MD MICROBIOLOGY - GENERAL ORDERA BLES Final Result Performing Organization Address City/[facility]/ZIP Co de Phone Number [facility]
[address] [place] [address], * Magnesium (04/12/2025 9:04 AM EDT) Magnesium 1.6 1.6 - 2.4 mg/dL 04/12/2025 10:40 AM EDT [facility] Blood Venipuncture / Unknown 04/12/2025 9:04 AM EDT 04/12/2025 10:01 AM EDT Shakira Barney MD LAB BLOOD ORDERABLES Final Re sult Performing Organization Address [facility] de Phone Number [facility]
[address] [place] [address], * Blood Culture - Blood, Hand, Left (04/12/2025 9:04 AM EDT) Blood Culture No growth at 5 days 04/17/2025 10:30 AM EDT [facility] Blood Structure of left hand / Unknown Venipuncture / Unknown 04/12/2025 9:04 AM EDT 04/12/2025 10:29 AM EDT Narrative [facility] - 04/17/2025 10:30 AM EDT Less than seven (7) mL's of blood was collected. Insufficient quantity may yield false negative results. us Shakira Barney MD MICROBIOLOGY - GENERAL ORDERA BLES Final Result Performing Organization Address [facility] Co de Phone Number [facility]
[address] [place] [address], * High Sensitivity Troponin T 1Hr (04/12/2025 9:04 AM EDT) HS Troponin T <6 <14 ng/L 04/12/2025 10:34 AM EDT [facility] Troponin T Numeric Delta 04/12/2025 10:34 AM EDT [facility] Comment:Unable to calculate. Blood Venipuncture / Unknown 04/12/2025 9:04 AM EDT 04/12/2025 10:01 AM EDT Narrative [facility] - 04/12/2025 10:34 AM EDT High Sensitive Troponin T Reference Range: <14.0 ng/L- Negative Female for AMI <22.0 ng/L- Negative Male for AMI >=14 - Abnormal Female indicating possible myocardial injury. >=22 - Abnormal Male indicating possible myocardial injury. Clinicians would have to utilize clinical acumen, EKG, Troponin, and serial changes to determine if it is an Acute Myocardial Infarction or myocardial injury due to an underlying chronic condition. us Shakira Barney MD LAB BLOOD ORDERABLES Final Re sult Performing Organization Address [facility]/ZIP Co de Phone Number [facility]
[address] [place] [address], * (ABNORMAL) STAT Lactic Acid, Reflex (04/12/2025 9:04 AM EDT) Pathologist [facility] [place] Lactate 3.4(HH) 0.5 - 2.0 mmol/L 04/12/2025 10:36 AM EDT [facility] Comment:Falsely depressed re sults may occur on samples drawn from patients receiving N-Acetylcysteine (NAC) or Metamizole. Blood Venipuncture / Unknown 04/12/2025 9:04 AM EDT 04/12/2025 10:01 AM EDT us Shakira Barney MD LAB BLOOD ORDERABLES Final Re sult Performing Organization Address City/[facility] Co de Phone Number [facility]
[address] [place] [address], [place] [phone] * (ABNORMAL) POC Glucose Once (04/12/2025 7:15 AM EDT) Glucose 280(H) 70 - 130 mg/dL 04/12/2025 7:18 AM EDT [facility] Blood 04/12/2025 7:15 AM EDT 04/12/2025 7:18 AM EDT Tevin Lees MD POINT OF CARE TEST ORDERABLES Final Result [facility]
[address] [place] [address], * (ABNORMAL) Urinalysis With Culture If Indicated - Urine, Clean Catch (04/12/2025 6:48 AM EDT) Color, UA Yellow Yellow, Straw 04/12/2025 7:04 AM EDT [facility] Appearance, UA Clear Clear 04/12/2025 7:04 AM EDT [facility] pH, UA 7.0 5.0 - 8.0 04/12/2025 7:04 AM EDT [facility] Specific [place], UA 1.008 1.005 - 1.030 04/12/2025 7:04 AM EDT [facility] Glucose, UA 500 mg/dL (2+)(A) Negative 04/12/2025 7:04 AM EDT [facility] Ketones, UA Negative Negative 04/12/2025 7:04 AM EDT [facility] Bilirubin, UA Negative Negative 04/12/2025 7:04 AM EDT [facility] Blood, UA Negative Negative 04/12/2025 7:04 AM EDT [facility] Protein, UA Negative Negative 04/12/2025 7:04 AM EDT [facility] Leuk Esterase, UA Negative Negative 04/12/2025 7:04 AM EDT [facility] Nitrite, UA Negative Negative 04/12/2025 7:04 AM EDT [facility] Urobilinogen, UA 0.2 E.U./dL 0.2 - 1.0 E.U./dL 04/12/2025 7:04 AM EDT [facility] Urine Urine specimen obtained by clean catch procedure / Unknown Collection / Unknown 04/12/2025 6:48 AM EDT 04/12/2025 7:01 AM EDT Narrative [facility] - 04/12/2025 7:04 AM EDT In absence of clinical symptoms, the presence of pyuria, bacteria, and/or nitrites on the urinalysis result does not correlate with infection. Urine microscopic not indicated. us Shakira Barney MD URINE ORDERABLES Final Result [facility]
[address] [place] [address], * XR Chest 1 View (04/12/2025 6:39 AM EDT) Anatomical Region Laterality Modality Body N/A Radiographic Anna ging 04/12/2025 7:09 AM EDT Impressions 04/12/2025 7:12 AM EDT Impression: Scattered interstitial coarsening with interspersed airspace opacities, which could reflect pneumonia with possible component of underlying chronic lung disease. Pulmonary edema is a less likely differential consideration. No prior exams available for comparison. Electronically Signed: Aris Chávez MD 04/12/2025 7:12 AM EDT Workstation ID: [id number] Narrative 04/12/2025 7:12 AM EDT XR CHEST 1 VW Date of Exam: 04/12/2025 6:24 AM EDT Indication: cough Comparison: None available. Findings: Mildly enlarged cardiac silhouette. Scattered interstitial coarsening with interspersed airspace opacities, for example in the right lateral midlung. No sizable pleural effusion. No pneumothorax. Osseous structures are grossly unremarkable. Procedure Note Aris Chávez MD - 04/12/2025 XR CHEST 1 VW Date of Exam: 04/12/2025 6:24 AM EDT Indication: cough Comparison: None available. Findings: Mildly enlarged cardiac silhouette. Scattered interstitial coarsening withinterspersed airspace opacities, for example in the right lateral midlung.No sizable pleural effusion. No pneumothorax. Osseous structures aregrossly unremarkable. IMPRESSION: Impression: Scattered interstitial coarsening with interspersed airspace opacities,which could reflect pneumonia with possible component of underlyingchronic lung disease. Pulmonary edema is a less likely differentialconsideration. No prior exams available for comparison. Electronically Signed: Aris Chávez MD 04/12/2025 7:12 AM EDT Workstation ID: [id number] Shakira Barney MD IMG DIAGNOSTIC IMAGING ORDERA BLES Final Result * (ABNORMAL) Respiratory Panel PCR w/COVID-19(SARS-CoV-2) ELSA/GREGORY/JASMIN/PAD/COR/CLAUDETTE In-House, GEAR DESIGN ENGINEER Swab in UTM/VTM, 2 HR TAT - Swab, Nasopharynx (04/12/2025 5:59 AM EDT) ADENOVIRUS, PCR Not Detected Not Detected [facility] 04/12/2025 8:58 AM EDT [facility] Coronavirus 229E Not Detected Not Detected [facility] 04/12/2025 8:58 AM EDT [facility] Coronavirus HKU1 Not Detected Not Detected [facility] 04/12/2025 8:58 AM EDT [facility] Coronavirus NL63 Not Detected Not Detected [facility] 04/12/2025 8:58 AM EDT [facility] Coronavirus OC43 Not Detected Not Detected [facility] 04/12/2025 8:58 AM EDT [facility] COVID19 Not Detected Not Detected - Ref. Range [facility] 04/12/2025 8:58 AM EDT [facility] Human Metapneumovirus Not Detected Not Detected [facility] 04/12/2025 8:58 AM EDT [facility] Human Rhinovirus/Enterov irus Detected(A) Not Detected [facility] 04/12/2025 8:58 AM EDT [facility] Influenza A PCR Not Detected Not Detected [facility] 04/12/2025 8:58 AM EDT [facility] Influenza B PCR Not Detected Not Detected [facility] 04/12/2025 8:58 AM EDT [facility] Parainfluenza Virus 1 Not Detected Not Detected [facility] 04/12/2025 8:58 AM EDT [facility] Parainfluenza Virus 2 Not Detected Not Detected [facility] 04/12/2025 8:58 AM EDT [facility] Parainfluenza Virus 3 Not Detected Not Detected [facility] 04/12/2025 8:58 AM EDT [facility] Parainfluenza Virus 4 Not Detected Not Detected [facility] 04/12/2025 8:58 AM EDT [facility] RSV, PCR Not Detected Not Detected [facility] 04/12/2025 8:58 AM EDT [facility] Bordetella pertussis pcr Not Detected Not Detected [facility] 04/12/2025 8:58 AM EDT [facility] Bordetella parapertussis PCR Not Detected Not Detected [facility] 04/12/2025 8:58 AM EDT [facility] Chlamydophila pneumoniae PCR Not Detected Not Detected [facility] 04/12/2025 8:58 AM EDT [facility] Mycoplasma pneumo by PCR Not Detected Not Detected [facility] 04/12/2025 8:58 AM EDT [facility] Swab Nasopharyngeal structure / Unknown Collection / Unknown 04/12/2025 5:59 AM EDT 04/12/2025 6:47 AM EDT [facility] - 04/12/2025 8:58 AM EDT In the setting of a positive respiratory panel with a viral infection PLUS a negative procalcitonin without other underlying concern for bacterial infection, consider observing off antibiotics or discontinuation of antibiotics and continue supportive care. If the respiratory panel is positive for atypical bacterial infection (Bordetella pertussis, Chlamydophila pneumoniae, or Mycoplasma pneumoniae), consider antibiotic de-escalation to target atypical bacterial infection. Shakira Barney MD MICROBIOLOGY - GENERAL ORDERA BLES Final Result Performing Organization Address City/[facility]/ZIP Co de Phone Number [facility]
[address] [place] [address], * P2Y12 Platelet Inhibition (04/12/2025 4:54 AM EDT) [facility] P2Y12 Reactivity Unit 215 PRU DISK DIFFUSION 04/12/2025 6:45 AM EDT [facility] Blood Venipuncture / Unknown 04/12/2025 4:54 AM EDT 04/12/2025 6:16 AM EDT Narrative [facility] - 04/12/2025 6:45 AM EDT P2Y12 Interpretation: Pre-Drug normal reference range is 194-418 PRU. Test results are reported in P2Y12 reaction units (PRU). This measures the extent of platelet aggregation in the presence of P2Y12 inhibitor drugs, such as clopidogrel (Plavix), prasugrel (Effient), ticagrelor (Brilinta), ticlopidine (Ticlid). P2Y12 values <194 PRU (low end of reference range) are specific evidence of a P2Y12 inhibitor effect. Patients who have been treated with Glycoprotein IIb/IIIa inhibitors should not be tested until platelet function has recovered. This time period is approximately 14 days after discontinuation of abciximab (ReoPro) and up to 48 hours after discontinuation of eptifibatide (Integrilin) and tirofiban (Aggrastat). The P2Y12 test results should be interpreted in conjunction with other clinical and lab data available to the clinician. January Arnoldo PIÑAN LAB BLOOD ORDERABLES Fi nal Result Performing Organization Address City/[facility]/ZIP Co de Phone Number [facility]
[address] [place] [address], * High Sensitivity Troponin T (04/12/2025 4:54 AM EDT) HS Troponin T <6 <14 ng/L 04/12/2025 5:36 AM EDT [facility] Blood Venipuncture / Unknown 04/12/2025 4:54 AM EDT 04/12/2025 5:05 AM EDT Narrative [facility] - 04/12/2025 5:36 AM EDT High Sensitive Troponin T Reference Range: <14.0 ng/L- Negative Female for AMI <22.0 ng/L- Negative Male for AMI >=14 - Abnormal Female indicating possible myocardial injury. >=22 - Abnormal Male indicating possible myocardial injury. Clinicians would have to utilize clinical acumen, EKG, Troponin, and serial changes to determine if it is an Acute Myocardial Infarction or myocardial injury due to an underlying chronic condition. us Shakira Barney MD LAB BLOOD ORDERABLES Final Re sult [facility]
[address] [place] [address], * (ABNORMAL) Phosphorus (04/12/2025 4:54 AM EDT) [facility] Phosphorus 2.3(L) 2.5 - 4.5 mg/dL 04/12/2025 5:31 AM EDT [facility] Blood Venipuncture / Unknown 04/12/2025 4:54 AM EDT 04/12/2025 5:05 AM EDT us Shakira Barney MD LAB BLOOD ORDERABLES Final Re sult [facility]
[address] [place] [address], [place] [phone] * Magnesium (04/12/2025 4:54 AM EDT) Magnesium 1.7 1.6 - 2.4 mg/dL 04/12/2025 5:31 AM EDT [facility] Blood Venipuncture / Unknown 04/12/2025 4:54 AM EDT 04/12/2025 5:05 AM EDT Shakira Barney MD LAB BLOOD ORDERABLES Final Re sult Performing Organization Address [facility] de Phone Number [facility]
[address] [place] [address], * Protime-INR (04/12/2025 4:54 AM EDT) Pathologist [facility] Protime 14.1 12.2 - 15.3 Seconds 04/12/2025 5:37 AM EDT [facility] INR 1.02 0.89 - 1.12 04/12/2025 5:37 AM EDT [facility] Blood Venipuncture / Unknown 04/12/2025 4:54 AM EDT 04/12/2025 5:13 AM EDT Shakira Barney MD LAB BLOOD ORDERABLES Final Re sult Performing Organization Address [facility] Phone Number [facility]
[address] [place] [address], * (ABNORMAL) Lactic Acid, Plasma (04/12/2025 4:54 AM EDT) Lactate 2.6(HH) 0.5 - 2.0 mmol/L 04/12/2025 5:32 AM EDT [facility] Comment:Falsely depressed re sults may occur on samples drawn from patients receiving N-Acetylcysteine (NAC) or Metamizole. Blood Venipuncture / Unknown 04/12/2025 4:54 AM EDT 04/12/2025 5:05 AM EDT us Shakira Barney MD LAB BLOOD ORDERABLES Final Re sult [facility]
[address] [place] [address], * (ABNORMAL) Comprehensive Metabolic Panel (04/12/2025 4:54 AM EDT) Glucose 265(H) 65 - 99 mg/dL 04/12/2025 5:31 AM EDT [facility] BUN 9.7 8.0 - 23.0 mg/dL 04/12/2025 5:31 AM EDT [facility] Creatinine 0.59 0.57 - 1.00 mg/dL 04/12/2025 5:31 AM EDT [facility] Sodium 130(L) 136 - 145 mmol/L 04/12/2025 5:31 AM EDT [facility] Potassium 3.9 3.5 - 5.2 mmol/L 04/12/2025 5:31 AM EDT [facility] Chloride 95(L) 98 - 107 mmol/L 04/12/2025 5:31 AM EDT [facility] CO2 22.0 22.0 - 29.0 mmol/L 04/12/2025 5:31 AM EDT [facility] Calcium 9.3 8.6 - 10.5 mg/dL 04/12/2025 5:31 AM EDT [facility] Total Protein 6.9 6.0 - 8.5 g/dL 04/12/2025 5:31 AM EDT [facility] Albumin 3.5 3.5 - 5.2 g/dL 04/12/2025 5:31 AM EDT [facility] ALT (SGPT) 13 1 - 33 U/L 04/12/2025 5:31 AM EDT [facility] AST (SGOT) 13 1 - 32 U/L 04/12/2025 5:31 AM EDT [facility] Alkaline Phosphatase 128(H) 39 - 117 U/L 04/12/2025 5:31 AM EDT [facility] Total Bilirubin 0.3 0.0 - 1.2 mg/dL 04/12/2025 5:31 AM EDT [facility] Globulin 3.4 gm/dL 04/12/2025 5:31 AM EDT [facility] Comment:Calculated Result A/G Ratio 1.0 g/dL 04/12/2025 5:31 AM EDT [facility] BUN/Creatinine Ratio 16.4 7.0 - 25.0 04/12/2025 5:31 AM EDT [facility] Anion Gap 13.0 5.0 - 15.0 mmol/L 04/12/2025 5:31 AM EDT [facility] eGFR 99.5 >60.0 mL/min/1.7 3 04/12/2025 5:31 AM EDT [facility] Blood Venipuncture / Unknown 04/12/2025 4:54 AM EDT 04/12/2025 5:05 AM EDT [facility] - 04/12/2025 5:31 AM EDT GFR Categories in Chronic Kidney Disease (CKD) GFR Category GFR (mL/min/1.73) Interpretation G1 90 or greater Normal or high (1) G2 60-89 Mild decrease (1) G3a 45-59 Mild to moderate decrease G3b 30-44 Moderate to severe decrease G4 15-29 Severe decrease G5 14 or less Kidney failure (1)In the absence of evidence of kidney disease, neither GFR category G1 or G2 fulfill the criteria for CKD. eGFR calculation 2020 CKD-EPI creatinine equation, which does not include race as a factor us Shakira Barney MD LAB BLOOD ORDERABLES Final Re sult [facility]
[address] [place] [address], * (ABNORMAL) CBC Auto Differential (04/12/2025 4:54 AM EDT) WBC 20.49(H) 3.40 - 10.80 10*3/mm3 04/12/2025 5:21 AM [facility] RBC 4.65 3.77 - 5.28 10*6/mm3 04/12/2025 5:21 AM [facility] Hemoglobin 13.1 12.0 - 15.9 g/dL 04/12/2025 5:21 AM [facility] Hematocrit 42.1 34.0 - 46.6 % 04/12/2025 5:21 AM [facility] MCV 90.5 79.0 - 97.0 fL 04/12/2025 5:21 AM [facility] MCH 28.2 26.6 - 33.0 pg 04/12/2025 5:21 AM [facility] MCHC 31.1(L) 31.5 - 35.7 g/dL 04/12/2025 5:21 AM [facility] RDW 12.3 12.3 - 15.4 % 04/12/2025 5:21 AM [facility] RDW-SD 40.8 37.0 - 54.0 fl 04/12/2025 5:21 AM [facility] MPV 10.2 6.0 - 12.0 fL 04/12/2025 5:21 AM [facility] Platelets 418 140 - 450 10*3/mm3 04/12/2025 5:21 AM [facility] Neutrophil % 83.9(H) 42.7 - 76.0 % 04/12/2025 5:21 AM [facility] Lymphocyte % 12.5(L) 19.6 - 45.3 % 04/12/2025 5:21 AM [facility] Monocyte % 2.9(L) 5.0 - 12.0 % 04/12/2025 5:21 AM [facility] Eosinophil % 0.0(L) 0.3 - 6.2 % 04[facility] Basophil % 0.2 0.0 - 1.5 % 04/12/2025 5:21 AM EDT [facility] Immature Grans % 0.5 0.0 - 0.5 % 04/12/2025 5:21 AM EDT [facility] Neutrophils, Absolute 17.18(H) 1.70 - 7.00 10*3/mm3 04/12/2025 5:21 AM EDT [facility] Lymphocytes, Absolute 2.57 0.70 - 3.10 10*3/mm3 04/12/2025 5:21 AM EDT [facility] Monocytes, Absolute 0.59 0.10 - 0.90 10*3/mm3 04/12/2025 5:21 AM EDT [facility] Eosinophils, Absolute 0.00 0.00 - 0.40 10*3/mm3 04/12/2025 5:21 AM EDT [facility] Basophils, Absolute 0.04 0.00 - 0.20 10*3/mm3 04/12/2025 5:21 AM EDT [facility] Immature Grans, Absolute 0.11(H) 0.00 - 0.05 10*3/mm3 04/12/2025 5:21 AM EDT [facility] nRBC 0.0 0.0 - 0.2 /100 WBC 04/12/2025 5:21 AM EDT [facility] Blood Venipuncture / Unknown 04/12/2025 4:54 AM EDT 04/12/2025 5:13 AM EDT us Shakira Barney MD LAB BLOOD ORDERABLES Final Re sult [facility]
[address] [place] [address], * Lipid Panel (04/12/2025 4:54 AM EDT) Total Cholesterol 159 0 - 200 mg/dL 04/12/2025 5:31 AM EDT [facility] Triglycerides 55 0 - 150 mg/dL 04/12/2025 5:31 AM EDT [facility] HDL Cholesterol 48 40 - 60 mg/dL 04/12/2025 5:31 AM EDT [facility] LDL Cholesterol 100 0 - 100 mg/dL 04/12/2025 5:31 AM EDT [facility] VLDL Cholesterol 11 5 - 40 mg/dL 04/12/2025 5:31 AM EDT [facility] LDL/HDL Ratio 2.08 04/12/2025 5:31 AM EDT [facility] Blood Venipuncture / Unknown 04/12/2025 4:54 AM EDT 04/12/2025 5:05 AM EDT [facility] - 04/12/2025 5:31 AM EDT Cholesterol Reference Ranges (U.S. Department of Health and Human Services ATP III Classifications) Desirable <200 mg/dL Borderline High 200-239 mg/dL High Risk >240 mg/dL Triglyceride Reference Ranges (U.S. Department of Health and Human Services ATP III Classifications) Normal <150 mg/dL Borderline High 150-199 mg/dL High 200-499 mg/dL Very High >500 mg/dL HDL Reference Ranges (U.S. Department of Health and Human Services ATP III Classifications) Low <40 mg/dl (major risk factor for CHD) High >60 mg/dl ('negative' risk factor for CHD) LDL Reference Ranges (U.S. Department of Health and Human Services ATP III Classifications) Optimal <100 mg/dL Near Optimal 100-129 mg/dL Borderline High 130-159 mg/dL High 160-189 mg/dL Very High >189 mg/dL LDL is calculated using the NIH LDL-C calculation. us May Arnoldo DURAN LAB BLOOD ORDERABLES Fi nal Result [facility]
[address] [place] [address], * (ABNORMAL) Hemoglobin A1c (04/12/2025 4:54 AM EDT) Hemoglobin A1C 7.57(H) 4.80 - 5.60 % 04/12/2025 6:00 AM EDT [facility] Blood Venipuncture / Unknown 04/12/2025 4:54 AM EDT 04/12/2025 5:05 AM EDT Narrative [facility] - 04/12/2025 6:00 AM EDT Hemoglobin A1C Ranges: Increased Risk for Diabetes 5.7% to 6.4% Diabetes >= 6.5% Diabetic Goal < 7.0% us May Arnoldo [facility] LAB BLOOD ORDERABLES Fi nal Result [facility]
[address] [place] [address], * ECG 12 Lead QT Measurement (04/12/2025 4:44 AM EDT) QT Interval 372 ms ECG QTC Interval 450 ms ECG 04/12/2025 4:44 AM EDT 04/18/2025 7:14 AM EDT Narrative ECG - 04/18/2025 7:14 AM EDT Test Reason : QT Measurement Blood Pressure : */* mmHG Vent. Rate : 88 BPM Atrial Rate : 88 BPM P-R Int : 222 ms QRS Dur : 92 ms QT Int : 372 ms P-R-T Axes : 44 -11 28 degrees QTcB Int : 450 ms Sinus rhythm with 1st degree AV block Minimal voltage criteria for LVH, may be normal variant Borderline ECG No previous ECGs available Confirmed by STEFANIA GRANT ([id number]) on 04/18/2025 7:14:44 AM Referred By: Confirmed By: STEFANIA GRANT Procedure Note Stefania Grant MD - 04/18/2025 Test Reason : QT Measurement Blood Pressure : */* mmHG Vent. Rate : 88 BPM Atrial Rate : 88 BPM P-R Int : 222 ms QRS Dur : 92 ms QT Int : 372 ms P-R-T Axes : 44 -11 28 degrees QTcB Int : 450 ms Sinus rhythm with 1st degree AV block Minimal voltage criteria for LVH, may be normal variant Borderline ECG No previous ECGs available Confirmed by STEFANIA GRANT ([id number]) on 04/18/2025 7:14:44 AM Referred By: Confirmed By: STEFANIA GRANT us Shakira Barney MD ECG ORDERABLES Final Result ECG * (ABNORMAL) Blood Gas, Arterial With Co-Ox (04/12/2025 4:28 AM EDT) Site Right Brachial 04/12/2025 4:28 AM EDT [facility]ER[facility] Ron's Test N/A 04/12/2025 4:28 AM EDT [facility] THER[facility] pH, Arterial 7.404 7.350 - 7.450 pH units 04/12/2025 4:28 AM EDT [facility] THER[facility] pCO2, Arterial 42.1 35.0 - 45.0 mm Hg 04/12/2025 4:28 AM EDT [facility] THERAP[facility] pO2, Arterial 147.0(H) 83.0 - 108.0 mm Hg 04/12/2025 4:28 AM EDT [facility] Comment:83 Value above refer ence range HCO3, Arterial 26.3(H) 20.0 - 26.0 mmol/L 04/12/2025 4:28 AM EDT [facility] Base Excess, Arterial 1.3 0.0 - 2.0 mmol/L 04/12/2025 4:28 AM EDT [facility] Hemoglobin, Blood Gas 13.1(L) 14 - 18 g/dL 04/12/2025 4:28 AM EDT [facility] Comment:84 Value below refer ence range Hematocrit, Blood Gas 40.2 38.0 - 51.0 % 04/12/2025 4:28 AM EDT [facility] Oxyhemoglobin 99.0 94 - 99 % 04/12/2025 4:28 AM EDT [facility] Methemoglobin 0.20 0.00 - 1.50 % 04/12/2025 4:28 AM EDT [facility] Carboxyhemoglobin 0.7 0 - 2 % 025 4:28 AM EDT [facility] TH[facility] CO2 Content 27.6 22 - 33 mmol/L 04/12/2025 4:28 AM EDT [facility] TH[facility] Temperature 37.0 04/12/2025 4:28 AM EDT [facility] Barometric Pressure for Blood Gas 04/12/2025 4:28 AM EDT [facility] Comment:N/A Modality Nasal Cannula 04/12/2025 4:28 AM EDT [facility] FIO2 32 % 04/12/2025 4:28 AM EDT [facility] Rate 0 Breaths/ minute 04/12/2025 4:28 AM EDT [facility] PIP 0 cmH2O 04/12/2025 4:28 AM EDT [facility] Comment:Meter: [id number] Data Capture Specialist: [id number] IPAP 0 04/12/2025 4:28 AM EDT [facility] THER[facility] EPAP 0 04/12/2025 4:28 AM EDT [facility] TH[facility] pH, Temp Corrected 7.404 pH Units 2024 4:28 AM EDT [facility] THER[facility] pCO2, Temperature Corrected 42.1 35 - 45 mm Hg 04/12/2025 4:28 AM EDT [facility] THER[facility] pO2, Temperature Corrected 147(H) 83 - 108 mm Hg 04/12/2025 4:28 AM EDT [facility] Arterial Blood 04/12/2025 4: 28 AM EDT 04/12/2025 4:28 AM EDT us Shakira Barney MD LAB BLOOD ORDERABLES Final Re sult [facility] THERAPY
[address] [place] [address], * (ABNORMAL) POC Glucose Once (04/12/2025 2:49 AM EDT) Glucose 339(H) 70 - 130 mg/dL 04/12/2025 2:51 AM EDT [facility] Blood 04/12/2025 2:49 AM EDT 04/12/2025 2:50 AM EDT Result [facility] Kurt Yoo MD POINT OF CARE TEST ORDERABLE S Final Result [facility]
[address] [place] [address], * IMAGING SCANNED (04/12/2025) Anatomical Region Laterality Modality Radiographic Anna ging [facility] IMG DIAGNOSTIC IMAGING ORDERA BLES Final Result * IMAGING SCANNED (04/12/2025) Anatomical Region Laterality Modality Radiographic Anna ging [facility] IMG DIAGNOSTIC IMAGING ORDERA BLES Final Result * IMAGING SCANNED (04/12/2025) Anatomical Region Laterality Modality Radiographic Anna ging Result [facility] IMG DIAGNOSTIC IMAGING ORDERA BLES Final Result * ECG Scan (04/12/2025) Result [facility] ECG ORDERABLES Final Result * CT Outside Spine (04/11/2025 12:15 AM EDT) Narrative SYSTEMGENERATED, DOCUMENTATION - 04/12/2025 6:49 AM EDT This procedure was auto-finalized with no dictation required. us [employer] IMG CT ORDERABLES Final Re sult * CT Outside Neck (04/11/2025 12:10 AM EDT) Narrative SYSTEMGENERATED, DOCUMENTATION - 04/12/2025 6:48 AM EDT This procedure was auto-finalized with no dictation required. us [employer] IMG CT ORDERABLES Final Re sult * CT Outside Head (04/11/2025 12:05 AM EDT) Narrative SYSTEMGENERATED, DOCUMENTATION - 04/12/2025 6:48 AM EDT This procedure was auto-finalized with no dictation required. us [employer] IMG CT ORDERABLES Final Re sult * CT Outside Head (04/11/2025 12:00 AM EDT) Narrative SYSTEMGENERATED, DOCUMENTATION - 04/12/2025 6:47 AM EDT This procedure was auto-finalized with no dictation required. us [employer] IMG CT ORDERABLES Final Re sult documented in this encounter Visit Diagnoses Diagnosis Transient neurological symptoms- Primary Cerebrovascular accident (CVA), unspecified mechanism Transient neurologic deficit Type 2 diabetes mellitus with hyperglycemia, with long-term current use of insulin Transient neurological symptoms Syncope and collapse Stroke Unspecified cerebral artery occlusion with cerebral infarction Chronic respiratory failure with hypoxia Primary hypertension Unspecified essential hypertension Type 2 diabetes mellitus, with long-term current use of insulin documented in this encounter Admitting Diagnoses Diagnosis Stroke Unspecified cerebral artery occlusion with cerebral infarction documented in this encounter Administered Medications Inactive Administered Medications - up to 3 most recent administrations Medication Order MAR Action Action Date Dose Rate Site acetaminophen (TYLENOL) 160 MG/5ML oral solution 650 mg 650 mg, Oral, Every 4 Hours PRN, Mild Pain, Starting on Fri04/12/25 at 0328, If given for fever, use fever parameter: fever greater than 100.4 F Based on patient request - if ordered for moderate or severe pain, provider allows for administration of a medication prescribed for a lower pain scale. Do not exceed 4 grams of acetaminophen in a 24 hr period. Max dose of 2gm for AST/ALT greater than 120 units/L. If given for pain, use the following pain scale: Mild Pain = Pain Score of 1-3, CPOT 1-2 Moderate Pain = Pain Score of 4-6, CPOT 3-4 Severe Pain = Pain Score of 7-10, CPOT 5-8 acetaminophen (TYLENOL) suppository 650 mg 650 mg, Rectal, Every 4 Hours PRN, Mild Pain, Starting on Fri04/12/25 at 0328, If given for fever, use fever parameter: fever greater than 100.4 F Based on patient request - if ordered for moderate or severe pain, provider allows for administration of a medication prescribed for a lower pain scale. Do not exceed 4 grams of acetaminophen in a 24 hr period. Max dose of 2gm for AST/ALT greater than 120 units/L. If given for pain, use the following pain scale: Mild Pain = Pain Score of 1-3, CPOT 1-2 Moderate Pain = Pain Score of 4-6, CPOT 3-4 Severe Pain = Pain Score of 7-10, CPOT 5-8 acetaminophen (TYLENOL) tablet 650 mg 650 mg, Oral, Every 4 Hours PRN, Mild Pain, Starting on Fri04/12/25 at 0328, If given for fever, use fever parameter: fever greater than 100.4 F Based on patient request - if ordered for moderate or severe pain, provider allows for administration of a medication prescribed for a lower pain scale. Do not exceed 4 grams of acetaminophen in a 24 hr period. Max dose of 2gm for AST/ALT greater than 120 units/L. If given for pain, use the following pain scale: Mild Pain = Pain Score of 1-3, CPOT 1-2 Moderate Pain = Pain Score of 4-6, CPOT 3-4 Severe Pain = Pain Score of 7-10, CPOT 5-8 Given 04/13/2025 1:51 PM EDT 650 mg albuterol (PROVENTIL) nebulizer solution 0.083% 2.5 mg/3mL 2.5 mg, Nebulization, Every 6 Hours - RT, First dose on Fri04/12/25 at 0700, Include Respiratory Treatment Education Given 04/14/2025 12:30 PM EDT 2.5 mg Given 04/14/2025 7:41 AM EDT 2.5 mg Given 04/13/2025 6:44 PM EDT 2.5 mg aspirin chewable tablet 81 mg 81 mg, Oral, Daily, First dose on Fri04/12/25 at 0900, If patient fails dysphagia, HI option MUST be given. Do not exceed 4 grams of aspirin in a 24 hr period. If given for pain, use the following pain scale: Mild Pain = Pain Score of 1-3, CPOT 1-2 Moderate Pain = Pain Score of 4-6, CPOT 3-4 Severe Pain = Pain Score of 7-10, CPOT 5-8 Given 04/14/2025 8:59 AM EDT 81 mg Given 04/13/2025 9:04 AM EDT 81 mg Given 04/12/2025 8:17 AM EDT 81 mg aspirin suppository 300 mg 300 mg, Rectal, Daily, First dose on Fri04/12/25 at 0900, If patient fails dysphagia, HI option MUST be given. Do not exceed 4 grams of aspirin in a 24 hr period. If given for pain, use the following pain scale: Mild Pain = Pain Score of 1-3, CPOT 1-2 Moderate Pain = Pain Score of 4-6, CPOT 3-4 Severe Pain = Pain Score of 7-10, CPOT 5-8 atorvastatin (LIPITOR) tablet 80 mg 80 mg, Oral, Nightly, First dose on Fri04/12/25 at 0345, Avoid grapefruit juice. Given 04/13/2025 8:25 PM EDT 80 mg Given 04/12/2025 8:46 PM EDT 80 mg bisacodyl (DULCOLAX) EC tablet 5 mg 5 mg, Oral, Daily PRN, Constipation, Use if polyethylene glycol is ineffective, Starting on Fri04/12/25 at 0328, Use if no bowel movement after 12 hours. Swallow whole. Do not crush, split, or chew tablet. bisacodyl (DULCOLAX) suppository 10 mg 10 mg, Rectal, Daily PRN, Constipation, Use if bisacodyl oral is ineffective, Starting on Fri04/12/25 at 0328, Use if no bowel movement after 12 hours. Hold for diarrhea budesonide-formoterol (SYMBICORT) 160-4.5 MCG/ACT inhaler 2 puff 2 puff, Inhalation, 2 Times Daily - RT, First dose on Fri04/12/25 at 0930, Include Respiratory Treatment Education (SP) Shake well. Rinse mouth after use, do not swallow water. Send aerosols to pharmacy in ziplock bag for proper disposal. Given 04/14/2025 7:41 AM EDT 2 puffs Given 04/13/2025 6:50 PM EDT 2 puffs Given 04/13/2025 7:49 AM EDT 2 puffs Calcium Replacement - Follow Nurse / BPA Driven Protocol Open Order & Select [facility] Electrolyte Replacement Protocol Algorithm to View Details clopidogrel (PLAVIX) tablet 300 mg 300 mg, Oral, Once, On Fri04/12/25 at 0500, For 1 dose Given 04/12/2025 4:26 AM EDT 300 mg dextrose (D50W) (25 g/50 mL) IV injection 25 g 25 g, Intravenous, Every 15 Minutes PRN, Low Blood Sugar, Blood Sugar Less Than 70, Starting on Fri04/12/25 at 0329, Blood sugar less than 70; patient has IV access - Unresponsive, NPO or Unable To Safely Swallow dextrose (GLUTOSE) oral gel 15 g 15 g, Oral, Every 15 Minutes PRN, Low Blood Sugar, Blood sugar less than 70, Starting on Fri04/12/25 at 0329, BS<70, Patient Alert, Is not NPO, Can safely swallow. doxycycline (MONODOX) capsule 100 mg 100 mg, Oral, Every 12 Hours Scheduled, First dose on Fri04/13/25 at 2100, For 4 days, Take with food if GI upset occurs. Administer 2 hours before or 4 hours after administration of oral polyvalent cations (calcium, zinc, magnesium, iron), Indications: PneumoniaIndications:Pneumonia Given 04/14/2025 8:59 AM EDT 100 mg Given 04/13/2025 8:25 PM EDT 100 mg doxycycline (VIBRAMYCIN) 100 mg in sodium chloride 0.9 % 100 mL MBP 100 mg, Intravenous, Administer over 60 Minutes, 2 Times Daily, First dose on Fri04/12/25 at 0600, For 5 days, Protect from light., Indications: PneumoniaIndications:Pneumonia New Bag 04/13/2025 9:05 AM EDT 100 mg New Bag 04/12/2025 8:46 PM EDT 100 mg New Bag 04/12/2025 6:44 AM EDT 100 mg famotidine (PEPCID) tablet 40 mg 40 mg, Oral, Daily, First dose on Fri04/12/25 at 0900 Given 04/14/2025 8:59 AM EDT 40 mg Given 04/13/2025 9:04 AM EDT 40 mg Given 04/12/2025 8:17 AM EDT 40 mg glucagon (GLUCAGEN) injection 1 mg 1 mg, Intramuscular, Every 15 Minutes PRN, Low Blood Sugar, Blood Glucose Less Than 70, Starting on Fri04/12/25 at 0329, Blood Glucose Less Than 70 - Patient Without IV Access - Unresponsive, NPO or Unable To Safely Swallow Reconstitute powder for injection by adding 1 mL of geospatial applications developer-supplied sterile diluent or sterile water for injection to a vial containing 1 mg of the drug, to provide solutions containing 1 mg/mL. Shake vial gently to dissolve. insulin glargine (LANTUS, SEMGLEE) injection 40 Units 40 Units, Subcutaneous, Daily, First dose on Fri04/12/25 at 0900, Do not hold basal insulin without an order. Consider requesting a dose edit, if needed. ([facility]) Given 04/14/2025 8:59 AM EDT 40 Units Left Upper Abdomen Given 04/13/2025 9:04 AM EDT 40 Units Ri ght Lower Abdomen Given 04/12/2025 8:18 AM EDT 40 Units Ri ght Lower Abdomen Insulin Lispro (humaLOG) injection 2-7 Units 2-7 Units, Subcutaneous, 4 Times Daily Before Meals & Nightly, First dose on Fri04/12/25 at 1830, Correction Insulin - Low Dose - Total Insulin Dose Less Than 40 units/day (Lean, Elderly or Renal Patients) Blood Glucose 150-199 mg/dL - 2 units Blood Glucose 200-249 mg/dL - 3 units Blood Glucose 250-299 mg/dL - 4 units Blood Glucose 300-349 mg/dL - 5 units Blood Glucose 350-400 mg/dL - 6 units Blood Glucose Greater Than 400 mg/dL - 7 units & Call Provider ([facility]) Caution: Look alike/sound alike drug alert([facility]) Given 04/13/2025 8:25 PM EDT 2 Units Right Upper Abdomen Given 04/12/2025 8:46 PM EDT 3 Units Le ft Lower Abdomen insulin regular (humuLIN R,novoLIN R) injection 3-14 Units 3-14 Units, Subcutaneous, Every 6 Hours Scheduled, First dose (after last modification) on Fri04/12/25 at 0445, Correction Insulin - Moderate-High Dose (Total Insulin Dose 60-80 units/day, Patient Taking Insulin at Home) Blood Glucose 150-199 mg/dL - 3 units Blood Glucose 200-249 mg/dL - 5 units Blood Glucose 250-299 mg/dL - 8 units Blood Glucose 300-349 mg/dL - 10 units Blood Glucose 350-400 mg/dL - 12 units Blood Glucose Greater Than 400 mg/dL - 14 units & Call Provider ([facility]) Caution: Look alike/sound alike drug alert([facility]) Given 04/12/2025 11:25 AM EDT 5 Units Right Lower Abdomen Given 04/12/2025 4:26 AM EDT 10 Units Le ft Lower Abdomen iopamidol (ISOVUE-370) 76 % injection 100 mL 100 mL, Intravenous, Once in Imaging, On Fri04/12/25 at 1745, For 1 dose Given 04/12/2025 4:54 PM EDT 80 mL ipratropium-albuterol (DUO-NEB) nebulizer solution 3 mL 3 mL, Nebulization, Once, On Fri04/12/25 at 0415, For 1 dose, Include Respiratory Treatment Education Given 04/12/2025 4:01 AM EDT 3 mL isosorbide mononitrate (IMDUR) 24 hr tablet 60 mg 60 mg, Oral, Daily, First dose on Fri04/12/25 at 0900, Do not crush or chew the capsules or tablets. The drug may not work as designed if the capsule or tablet is crushed or chewed. Swallow whole. Given 04/14/2025 8:59 AM EDT 60 mg Given 04/13/2025 9:04 AM EDT 60 mg Given 04/12/2025 8:17 AM EDT 60 mg Magnesium Cardiology Dose Replacement - Follow Nurse / BPA Driven Protocol Open Order & Select [facility] Electrolyte Replacement Protocol Algorithm to View Details magnesium sulfate 4g/100mL (PREMIX) infusion 4 g, Intravenous, Administer over 4 Hours, Once, On Fri04/12/25 at 0645, For 1 dose New Bag 04/12/2025 8:17 AM EDT 4 g metoprolol succinate XL (TOPROL-XL) 24 hr tablet 25 mg 25 mg, Oral, Daily, First dose on Fri04/12/25 at 0900, Hold for SBP less than 100, DBP less than 60, or heart rate less than 50 Do not crush or chew the capsules or tablets. The drug may not work as designed if the capsule or tablet is crushed or chewed. Swallow whole. Do not crush or chew. Given 04/14/2025 8:59 AM EDT 25 mg Given 04/13/2025 9:04 AM EDT 25 mg Given 04/12/2025 8:17 AM EDT 25 mg morphine injection 1 mg 1 mg, Intravenous, Every 4 Hours PRN, Moderate Pain, Starting on Fri04/12/25 at 0328, For 5 days, Based on patient request - if ordered for moderate or severe pain, provider allows for administration of a medication prescribed for a lower pain scale. If given for pain, use the following pain scale: Mild Pain = Pain Score of 1-3, CPOT 1-2 Moderate Pain = Pain Score of 4-6, CPOT 3-4 Severe Pain = Pain Score of 7-10, CPOT 5-8 naloxone (NARCAN) injection 0.4 mg 0.4 mg, Intravenous, Every 5 Minutes PRN, Respiratory Depression, Starting on Fri04/12/25 at 0328, If respiratory rate is less than 8 breaths/minute or patient is difficult to arouse stop any narcotics and contact physician. Administer slow IV push. Repeat as ordered until patient's respiratory rate is greater than 12 breaths/minute. nitroglycerin (NITROSTAT) SL tablet 0.4 mg 0.4 mg, Sublingual, Every 5 Minutes PRN, Chest Pain, Starting on Fri04/12/25 at 0324, If Pain Unrelieved After 3 Doses Notify MD May administer up to 3 doses per episode. Hold if SBP less than 100. ondansetron (ZOFRAN) injection 4 mg 4 mg, Intravenous, Every 6 Hours PRN, Nausea, Vomiting, Starting on Fri04/12/25 at 0328, If BOTH ondansetron (ZOFRAN) and promethazine (PHENERGAN) are ordered use ondansetron first and THEN promethazine IF ondansetron is ineffective. ondansetron ODT (ZOFRAN-ODT) disintegrating tablet 4 mg 4 mg, Translingual, Every 6 Hours PRN, Nausea, Vomiting, Starting on Fri04/13/25 at 1349, If multiple N/V medications ordered, use in the following order: Ondansetron, Prochlorperazine, Promethazine. Use PO unless patient refuses or patient unable to swallow. Place on tongue and allow to dissolve. Given 04/13/2025 2:23 PM EDT 4 mg Phosphorus Replacement - Follow Nurse / BPA Driven Protocol Open Order & Select [facility] Electrolyte Replacement Protocol Algorithm to View Details polyethylene glycol (MIRALAX) packet 17 g 17 g, Oral, Daily PRN, Constipation, Use if senna-docusate is ineffective, Starting on Fri04/12/25 at 0328, Use if no bowel movement after 12 hours. Mix in 6-8 ounces of water. Use 4-8 ounces of water, tea, or juice for each 17 gram dose. Potassium Replacement - Follow Nurse / BPA Driven Protocol Open Order & Select [facility] Electrolyte Replacement Protocol Algorithm to View Details revefenacin (YUPELRI) nebulizer solution 175 mcg 175 mcg, Nebulization, Daily - RT, First dose on Fri04/12/25 at 0930, Include Respiratory Treatment Education Given 04/14/2025 7:41 AM EDT 175 mcg Given 04/13/2025 7:49 AM EDT 175 mcg Given 04/12/2025 7:43 AM EDT 175 mcg sennosides-docusate (PERICOLACE) 8.6-50 MG per tablet 2 tablet 2 tablet, Oral, 2 Times Daily PRN, Constipation, Starting on Fri04/12/25 at 0328, Start bowel management regimen if patient has not had a bowel movement after 12 hours. sodium chloride 0.9 % bolus 500 mL 500 mL, Intravenous, at 1,000 mL/hr, Administer over 0.5 Hours, Once, On Fri04/12/25 at 0630, For 1 dose New Bag 04/12/2025 5:51 AM EDT 500 mL 1000 mL/hr sodium chloride 0.9 % infusion 75 mL/hr, Intravenous, Continuous, Starting on Fri04/12/25 at 0630, For 24 hours New Bag 04/12/2025 6:43 AM EDT 75 mL/hr 75 mL/hr spironolactone (ALDACTONE) tablet 25 mg 25 mg, Oral, Daily, First dose on Fri04/12/25 at 0900, Hold for SBP less than 100, DBP less than 60. Group 1 (Yellow) Hazardous Drug - See Handling Guide Given 04/14/2025 8:59 AM EDT 25 mg Given 04/13/2025 9:04 AM EDT 25 mg Given 04/12/2025 8:18 AM EDT 25 mg Sulfur Hexafluoride Microsph (LUMASON) 60.7-25 MG IV reconstituted suspension reconstituted suspension 2 mL 2 mL, Intravenous, Once in Imaging, On Fri04/12/25 at 1330, For 1 dose Given 04/12/2025 12:43 PM EDT 2 mL ticagrelor (BRILINTA) tablet 90 mg 90 mg, Oral, 2 Times Daily, First dose on Fri04/13/25 at 0930, Avoid use with doses of aspirin > 100 mg/day Given 04/14/2025 8:59 AM EDT 90 mg Given 04/13/2025 8:25 PM EDT 90 mg Given 04/13/2025 10:55 AM EDT 90 mg documented in this encounter Active and Recently Administered Medications Times are shown in EDT. Scheduled Medication Order 04/12/2025 04/13/2025 04/14/2025 albuterol (PROVENTIL) nebulizer solution 0.083% 2.5 mg/3mL 2.5 mg, Nebulization, Every 6 Hours - RT, First dose on Fri04/12/25 at 0700, Include Respiratory Treatment Education 0744 (Given - Provider: Natali Hussein, BREE)1307 (Given - Provider: Natali Hussein, CHASSIS DRIVER)1849 (Given - Provider: Lety Barbosa, BREE) 0115 (Not Given - Provider: Lety Barbosa, BREE - Reason: Patient not available - Comment: pt in MRI)0749 (Given - Provider: Natali Hussein RRT)1238 (Given - Provider: Natali Hussein RRT)1844 (Given - Provider: Esme Gomez, OSEAS) 0140 (Not Given - Provider: Esme Gomez CRT - Reason: Patient/family refused)0741 (Given - Provider: Olive Wilhelm RRT)1230 (Given - Provider: Olive Wilhelm RRT) aspirin chewable tablet 81 mg(Linked Group 1) 81 mg, Oral, Daily, First dose on Fri04/12/25 at 0900, If patient fails dysphagia, HI option MUST be given. Do not exceed 4 grams of aspirin in a 24 hr period. If given for pain, use the following pain scale: Mild Pain = Pain Score of 1-3, CPOT 1-2 Moderate Pain = Pain Score of 4-6, CPOT 3-4 Severe Pain = Pain Score of 7-10, CPOT 5-8 0817 (Given - Provider: Mariela Rea RN) 0904 (Given - Provider: Gloria Ventura RN) 0859 (Given - Provider: Gloria Ventura RN) aspirin suppository 300 mg(Linked Group 1) 300 mg, Rectal, Daily, First dose on Fri04/12/25 at 0900, If patient fails dysphagia, HI option MUST be given. Do not exceed 4 grams of aspirin in a 24 hr period. If given for pain, use the following pain scale: Mild Pain = Pain Score of 1-3, CPOT 1-2 Moderate Pain = Pain Score of 4-6, CPOT 3-4 Severe Pain = Pain Score of 7-10, CPOT 5-8 0817 (Not Given: See Alt - Provider: Mariela Rea RN) 0904 (Not Given: See Alt - Provider: Gloria Ventura RN) 0859 (Not Given: See Alt - Provider: Gloria Ventura RN) atorvastatin (LIPITOR) tablet 80 mg 80 mg, Oral, Nightly, First dose on Fri04/12/25 at 0345, Avoid grapefruit juice. 0349 (Not Given - Provider: Karley Goodwin RN - Reason: Other - Comment: pt already took)2045 (Given - Provider: Kwame Barrett RN) 2024 (Given - Provider: Liz Ospina, RN) budesonide-formoterol (SYMBICORT) 160-4.5 MCG/ACT inhaler 2 puff(Linked Group 2) 2 puff, Inhalation, 2 Times Daily - RT, First dose on Fri04/12/25 at 0930, Include Respiratory Treatment Education (SP) Shake well. Rinse mouth after use, do not swallow water. Send aerosols to pharmacy in ziplock bag for proper disposal. 0744 (Given - Provider: Natali Hussein RRT)0930 (Canceled Entry - Provider: Natali Hussein RRT - Comment: previously given)184 (Given - Provider: Lety Barbosa RRT)2130 (Canceled Entry - Provider: Lety Barbosa RRT - Comment: previously given) 0749 (Given - Provider: Natali Hussein RRT)0930 (Canceled Entry - Provider: Natali Hussein RRT - Comment: previously given)185 (Given - Provider: Esme Gomez CRT)2129 (Canceled Entry - Provider: Esme Gomez CRT) 0741 (Given - Provider: Olive Wilhelm RRT)0930 (Canceled Entry - Provider: Olive Wilhelm RRT) clopidogrel (PLAVIX) tablet 300 mg (COMPLETED) 300 mg, Oral, Once, On Fri04/12/25 at 0500, For 1 dose 042 (Given - Provider: Karley Goodwin RN) doxycycline (MONODOX) capsule 100 mg 100 mg, Oral, Every 12 Hours Scheduled, First dose on Fri04/13/25 at 2100, For 4 days, Take with food if GI upset occurs. Administer 2 hours before or 4 hours after administration of oral polyvalent cations (calcium, zinc, magnesium, iron), Indications: Pneumonia 2024 (Given - Provider: Liz Ospina RN) 0859 (Given - Provider: Gloria Ventura RN) doxycycline (VIBRAMYCIN) 100 mg in sodium chloride 0.9 % 100 mL MBP (CANCELED) 100 mg, Intravenous, Administer over 60 Minutes, 2 Times Daily, First dose on Fri04/12/25 at 0600, For 5 days, Protect from light., Indications: Pneumonia 643 (New Bag - Provider: Karley Goodwin RN)2045 (New Bag - Provider: Kwame Barrett RN) 09 (New Bag - Provider: Gloria Ventura RN) famotidine (PEPCID) tablet 40 mg 40 mg, Oral, Daily, First dose on Fri04/12/25 at 0900 0817 (Given - Provider: Mariela Rea RN) 09 (Given - Provider: Gloria Ventura RN) 0859 (Given - Provider: Gloria Ventura RN) insulin glargine (LANTUS, SEMGLEE) injection 40 Units 40 Units, Subcutaneous, Daily, First dose on Fri04/12/25 at 0900, Do not hold basal insulin without an order. Consider requesting a dose edit, if needed. ([facility]) 0818 (Given - Provider: Mariela Rea RN) 09 (Given - Provider: Gloria Ventura RN) 0859 (Given - Provider: Gloria Ventura RN) Insulin Lispro (humaLOG) injection 2-7 Units 2-7 Units, Subcutaneous, 4 Times Daily Before Meals & Nightly, First dose on Fri04/12/25 at 1830, Correction Insulin - Low Dose - Total Insulin Dose Less Than 40 units/day (Lean, Elderly or Renal Patients) Blood Glucose 150-199 mg/dL - 2 units Blood Glucose 200-249 mg/dL - 3 units Blood Glucose 250-299 mg/dL - 4 units Blood Glucose 300-349 mg/dL - 5 units Blood Glucose 350-400 mg/dL - 6 units Blood Glucose Greater Than 400 mg/dL - 7 units & Call Provider ([facility]) Caution: Look alike/sound alike drug alert([facility]) 1752 (Not Given - Provider: Mariela Rea RN - Reason: Order parameters not met)2045 (Given - Provider: Kwame Barrett RN) 0752 (Not Given - Provider: Gloria Ventura RN - Reason: Order parameters not met)1148 (Not Given - Provider: Gloria Ventura RN - Reason: Order parameters not met)172 (Not Given - Provider: Gloria Ventura RN - Reason: Order parameters not met)2024 (Given - Provider: Liz Ospina RN) 0758 (Not Given - Provider: Gloria Ventura RN - Reason: Order parameters not met)1147 (Not Given - Provider: Gloria Ventura RN - Reason: Order parameters not met) insulin regular (humuLIN R,novoLIN R) injection 3-14 Units (CANCELED) 3-14 Units, Subcutaneous, Every 6 Hours Scheduled, First dose (after last modification) on Fri04/12/25 at 0445, Correction Insulin - Moderate-High Dose (Total Insulin Dose 60-80 units/day, Patient Taking Insulin at Home) Blood Glucose 150-199 mg/dL - 3 units Blood Glucose 200-249 mg/dL - 5 units Blood Glucose 250-299 mg/dL - 8 units Blood Glucose 300-349 mg/dL - 10 units Blood Glucose 350-400 mg/dL - 12 units Blood Glucose Greater Than 400 mg/dL - 14 units & Call Provider ([facility]) Caution: Look alike/sound alike drug alert([facility]) 0426 (Given - Provider: Karley Goodwin RN)1125 (Given - Provider: Mariela Rea RN)1700 (Not Given - Provider: Mariela Rea RN - Reason: Order parameters not met) iopamidol (ISOVUE-370) 76 % injection 100 mL (COMPLETED) 100 mL, Intravenous, Once in Imaging, On Fri04/12/25 at 1745, For 1 dose 1654 (Given - Provider: Janie Pettit) ipratropium-albuterol (DUO-NEB) nebulizer solution 3 mL (COMPLETED) 3 mL, Nebulization, Once, On Fri04/12/25 at 0415, For 1 dose, Include Respiratory Treatment Education 0401 (Given - Provider: Kalyn Joy, CHASSIS DRIVER) isosorbide mononitrate (IMDUR) 24 hr tablet 60 mg 60 mg, Oral, Daily, First dose on Fri04/12/25 at 0900, Do not crush or chew the capsules or tablets. The drug may not work as designed if the capsule or tablet is crushed or chewed. Swallow whole. 0817 (Given - Provider: Mariela Rea RN) 0904 (Given - Provider: Gloria Ventura, JESSE) 0859 (Given - Provider: Gloria Ventura, JESSE) magnesium sulfate 4g/100mL (PREMIX) infusion (COMPLETED) 4 g, Intravenous, Administer over 4 Hours, Once, On Fri04/12/25 at 0645, For 1 dose 0817 (New Bag - Provider: Mariela Rea RN) metoprolol succinate XL (TOPROL-XL) 24 hr tablet 25 mg 25 mg, Oral, Daily, First dose on Fri04/12/25 at 0900, Hold for SBP less than 100, DBP less than 60, or heart rate less than 50 Do not crush or chew the capsules or tablets. The drug may not work as designed if the capsule or tablet is crushed or chewed. Swallow whole. Do not crush or chew. 0817 (Given - Provider: Mariela Rea RN) 0904 (Given - Provider: Gloria Ventura RN) 0859 (Given - Provider: Gloria Ventura RN) revefenacin (YUPELRI) nebulizer solution 175 mcg(Linked Group 2) 175 mcg, Nebulization, Daily - RT, First dose on Fri04/12/25 at 0930, Include Respiratory Treatment Education 0743 (Given - Provider: Natali Hussein RRT)0930 (Canceled Entry - Provider: Natali Hussein RRT - Comment: previously given) 0749 (Given - Provider: Natali Hussein RRT)0930 (Canceled Entry - Provider: Natali Hussein RRT - Comment: previously given) 0741 (Given - Provider: Olive Wilhelm RRT)0930 (Canceled Entry - Provider: Olive Wilhelm RRT) sodium chloride 0.9 % bolus 500 mL (COMPLETED) 500 mL, Intravenous, at 1,000 mL/hr, Administer over 0.5 Hours, Once, On Fri04/12/25 at 0630, For 1 dose 0551 (New Bag - Provider: Karley Goodwin RN) spironolactone (ALDACTONE) tablet 25 mg 25 mg, Oral, Daily, First dose on Fri04/12/25 at 0900, Hold for SBP less than 100, DBP less than 60. Group 1 (Yellow) Hazardous Drug - See Handling Guide 0818 (Given - Provider: Mariela Rea RN) 0904 (Given - Provider: Gloria Ventura, JESSE) 0859 (Given - Provider: Gloria Ventura RN) Sulfur Hexafluoride Microsph (LUMASON) 60.7-25 MG IV reconstituted suspension reconstituted suspension 2 mL (COMPLETED) 2 mL, Intravenous, Once in Imaging, On Fri04/12/25 at 1330, For 1 dose 1243 (Given - Provider: Brandin Gonzalez RDCS) ticagrelor (BRILINTA) tablet 90 mg 90 mg, Oral, 2 Times Daily, First dose on Fri04/13/25 at 0930, Avoid use with doses of aspirin > 100 mg/day 1055 (Given - Provider: Gloria Ventura RN)5 (Given - Provider: Liz Ospina RN) 0859 (Given - Provider: Gloria Ventura RN) Continuous Medication Order 04/12/2025 04/13/2025 04/14/2025 sodium chloride 0.9 % infusion () 75 mL/hr, Intravenous, Continuous, Starting on Fri04/12/25 at 0630, For 24 hours 0643 (New Bag - Provider: Karley Goodwin RN) 0603 (Stopped - Provider: Kwame Barrett RN - Comment: [Order ends at this time. Document the following action when infusion is complete: Stopped]) PRN Medication Order 04/12/2025 04/13/2025 04/14/2025 acetaminophen (TYLENOL) 160 MG/5ML oral solution 650 mg(Linked Group 3) 650 mg, Oral, Every 4 Hours PRN, Mild Pain, Starting on Fri04/12/25 at 0328, If given for fever, use fever parameter: fever greater than 100.4 F Based on patient request - if ordered for moderate or severe pain, provider allows for administration of a medication prescribed for a lower pain scale. Do not exceed 4 grams of acetaminophen in a 24 hr period. Max dose of 2gm for AST/ALT greater than 120 units/L. If given for pain, use the following pain scale: Mild Pain = Pain Score of 1-3, CPOT 1-2 Moderate Pain = Pain Score of 4-6, CPOT 3-4 Severe Pain = Pain Score of 7-10, CPOT 5-8 1351 (Not Given: See Alt - Provider: Gloria Ventura RN) acetaminophen (TYLENOL) suppository 650 mg(Linked Group 3) 650 mg, Rectal, Every 4 Hours PRN, Mild Pain, Starting on Fri04/12/25 at 0328, If given for fever, use fever parameter: fever greater than 100.4 F Based on patient request - if ordered for moderate or severe pain, provider allows for administration of a medication prescribed for a lower pain scale. Do not exceed 4 grams of acetaminophen in a 24 hr period. Max dose of 2gm for AST/ALT greater than 120 units/L. If given for pain, use the following pain scale: Mild Pain = Pain Score of 1-3, CPOT 1-2 Moderate Pain = Pain Score of 4-6, CPOT 3-4 Severe Pain = Pain Score of 7-10, CPOT 5-8 1351 (Not Given: See Alt - Provider: Gloria Ventura RN) acetaminophen (TYLENOL) tablet 650 mg(Linked Group 3) 650 mg, Oral, Every 4 Hours PRN, Mild Pain, Starting on Fri04/12/25 at 0328, If given for fever, use fever parameter: fever greater than 100.4 F Based on patient request - if ordered for moderate or severe pain, provider allows for administration of a medication prescribed for a lower pain scale. Do not exceed 4 grams of acetaminophen in a 24 hr period. Max dose of 2gm for AST/ALT greater than 120 units/L. If given for pain, use the following pain scale: Mild Pain = Pain Score of 1-3, CPOT 1-2 Moderate Pain = Pain Score of 4-6, CPOT 3-4 Severe Pain = Pain Score of 7-10, CPOT 5-8 1351 (Given - Provider: Gloria Ventura RN) bisacodyl (DULCOLAX) EC tablet 5 mg(Linked Group 4) 5 mg, Oral, Daily PRN, Constipation, Use if polyethylene glycol is ineffective, Starting on Fri04/12/25 at 0328, Use if no bowel movement after 12 hours. Swallow whole. Do not crush, split, or chew tablet. bisacodyl (DULCOLAX) suppository 10 mg(Linked Group 4) 10 mg, Rectal, Daily PRN, Constipation, Use if bisacodyl oral is ineffective, Starting on Fri04/12/25 at 0328, Use if no bowel movement after 12 hours. Hold for diarrhea Calcium Replacement - Follow Nurse / BPA Driven Protocol Open Order & Select S Electrolyte Replacement Protocol Algorithm to View Details dextrose (D50W) (25 g/50 mL) IV injection 25 g 25 g, Intravenous, Every 15 Minutes PRN, Low Blood Sugar, Blood Sugar Less Than 70, Starting on Fri04/12/25 at 0329, Blood sugar less than 70; patient has IV access - Unresponsive, NPO or Unable To Safely Swallow dextrose (GLUTOSE) oral gel 15 g 15 g, Oral, Every 15 Minutes PRN, Low Blood Sugar, Blood sugar less than 70, Starting on Fri04/12/25 at 0329, BS<70, Patient Alert, Is not NPO, Can safely swallow. glucagon (GLUCAGEN) injection 1 mg 1 mg, Intramuscular, Every 15 Minutes PRN, Low Blood Sugar, Blood Glucose Less Than 70, Starting on Fri04/12/25 at 0329, Blood Glucose Less Than 70 - Patient Without IV Access - Unresponsive, NPO or Unable To Safely Swallow Reconstitute powder for injection by adding 1 mL of geospatial applications developer-supplied sterile diluent or sterile water for injection to a vial containing 1 mg of the drug, to provide solutions containing 1 mg/mL. Shake vial gently to dissolve. Magnesium Cardiology Dose Replacement - Follow Nurse / BPA Driven Protocol Open Order & Select S Electrolyte Replacement Protocol Algorithm to View Details morphine injection 1 mg(Linked Group 5) 1 mg, Intravenous, Every 4 Hours PRN, Moderate Pain, Starting on Fri04/12/25 at 0328, For 5 days, Based on patient request - if ordered for moderate or severe pain, provider allows for administration of a medication prescribed for a lower pain scale. If given for pain, use the following pain scale: Mild Pain = Pain Score of 1-3, CPOT 1-2 Moderate Pain = Pain Score of 4-6, CPOT 3-4 Severe Pain = Pain Score of 7-10, CPOT 5-8 naloxone (NARCAN) injection 0.4 mg(Linked Group 5) 0.4 mg, Intravenous, Every 5 Minutes PRN, Respiratory Depression, Starting on Fri04/12/25 at 0328, If respiratory rate is less than 8 breaths/minute or patient is difficult to arouse stop any narcotics and contact physician. Administer slow IV push. Repeat as ordered until patient's respiratory rate is greater than 12 breaths/minute. nitroglycerin (NITROSTAT) SL tablet 0.4 mg 0.4 mg, Sublingual, Every 5 Minutes PRN, Chest Pain, Starting on Fri04/12/25 at 0324, If Pain Unrelieved After 3 Doses Notify MD May administer up to 3 doses per episode. Hold if SBP less than 100. ondansetron (ZOFRAN) injection 4 mg 4 mg, Intravenous, Every 6 Hours PRN, Nausea, Vomiting, Starting on Fri04/12/25 at 0328, If BOTH ondansetron (ZOFRAN) and promethazine (PHENERGAN) are ordered use ondansetron first and THEN promethazine IF ondansetron is ineffective. ondansetron ODT (ZOFRAN-ODT) disintegrating tablet 4 mg 4 mg, Translingual, Every 6 Hours PRN, Nausea, Vomiting, Starting on Fri04/13/25 at 1349, If multiple N/V medications ordered, use in the following order: Ondansetron, Prochlorperazine, Promethazine. Use PO unless patient refuses or patient unable to swallow. Place on tongue and allow to dissolve. 1423 (Given - Provider: Gloria Ventura RN) Phosphorus Replacement - Follow Nurse / BPA Driven Protocol Open Order & Select [facility] Electrolyte Replacement Protocol Algorithm to View Details polyethylene glycol (MIRALAX) packet 17 g(Linked Group 4) 17 g, Oral, Daily PRN, Constipation, Use if senna-docusate is ineffective, Starting on Fri04/12/25 at 0328, Use if no bowel movement after 12 hours. Mix in 6-8 ounces of water. Use 4-8 ounces of water, tea, or juice for each 17 gram dose. Potassium Replacement - Follow Nurse / BPA Driven Protocol Open Order & Select S Electrolyte Replacement Protocol Algorithm to View Details sennosides-docusate (PERICOLACE) 8.6-50 MG per tablet 2 tablet(Linked Group 4) 2 tablet, Oral, 2 Times Daily PRN, Constipation, Starting on Fri04/12/25 at 0328, Start bowel management regimen if patient has not had a bowel movement after 12 hours. Linked Groups Order Group 1: aspirin chewable tablet 81 mgJump to med 81 mg, Oral, Daily, First dose on Fri04/12/25 at 0900, If patient fails dysphagia, HI option MUST be given. Do not exceed 4 grams of aspirin in a 24 hr period. If given for pain, use the following pain scale: Mild Pain = Pain Score of 1-3, CPOT 1-2 Moderate Pain = Pain Score of 4-6, CPOT 3-4 Severe Pain = Pain Score of 7-10, CPOT 5-8 Or aspirin suppository 300 mgJump to med 300 mg, Rectal, Daily, First dose on Fri04/12/25 at 0900, If patient fails dysphagia, HI option MUST be given. Do not exceed 4 grams of aspirin in a 24 hr period. If given for pain, use the following pain scale: Mild Pain = Pain Score of 1-3, CPOT 1-2 Moderate Pain = Pain Score of 4-6, CPOT 3-4 Severe Pain = Pain Score of 7-10, CPOT 5-8 Group 2: budesonide-formoterol (SYMBICORT) 160-4.5 MCG/ACT inhaler 2 puffJump to med 2 puff, Inhalation, 2 Times Daily - RT, First dose on Fri04/12/25 at 0930, Include Respiratory Treatment Education (SP) Shake well. Rinse mouth after use, do not swallow water. Send aerosols to pharmacy in ziplock bag for proper disposal. And revefenacin (YUPELRI) nebulizer solution 175 mcgJump to med 175 mcg, Nebulization, Daily - RT, First dose on Fri04/12/25 at 0930, Include Respiratory Treatment Education Group 3: acetaminophen (TYLENOL) tablet 650 mgJump to med 650 mg, Oral, Every 4 Hours PRN, Mild Pain, Starting on Fri04/12/25 at 0328, If given for fever, use fever parameter: fever greater than 100.4 F Based on patient request - if ordered for moderate or severe pain, provider allows for administration of a medication prescribed for a lower pain scale. Do not exceed 4 grams of acetaminophen in a 24 hr period. Max dose of 2gm for AST/ALT greater than 120 units/L. If given for pain, use the following pain scale: Mild Pain = Pain Score of 1-3, CPOT 1-2 Moderate Pain = Pain Score of 4-6, CPOT 3-4 Severe Pain = Pain Score of 7-10, CPOT 5-8 Or acetaminophen (TYLENOL) 160 MG/5ML oral solution 650 mgJump to med 650 mg, Oral, Every 4 Hours PRN, Mild Pain, Starting on Fri04/12/25 at 0328, If given for fever, use fever parameter: fever greater than 100.4 F Based on patient request - if ordered for moderate or severe pain, provider allows for administration of a medication prescribed for a lower pain scale. Do not exceed 4 grams of acetaminophen in a 24 hr period. Max dose of 2gm for AST/ALT greater than 120 units/L. If given for pain, use the following pain scale: Mild Pain = Pain Score of 1-3, CPOT 1-2 Moderate Pain = Pain Score of 4-6, CPOT 3-4 Severe Pain = Pain Score of 7-10, CPOT 5-8 Or acetaminophen (TYLENOL) suppository 650 mgJump to med 650 mg, Rectal, Every 4 Hours PRN, Mild Pain, Starting on Fri04/12/25 at 0328, If given for fever, use fever parameter: fever greater than 100.4 F Based on patient request - if ordered for moderate or severe pain, provider allows for administration of a medication prescribed for a lower pain scale. Do not exceed 4 grams of acetaminophen in a 24 hr period. Max dose of 2gm for AST/ALT greater than 120 units/L. If given for pain, use the following pain scale: Mild Pain = Pain Score of 1-3, CPOT 1-2 Moderate Pain = Pain Score of 4-6, CPOT 3-4 Severe Pain = Pain Score of 7-10, CPOT 5-8 Group 4: sennosides-docusate (PERICOLACE) 8.6-50 MG per tablet 2 tabletJump to med 2 tablet, Oral, 2 Times Daily PRN, Constipation, Starting on Fri04/12/25 at 0328, Start bowel management regimen if patient has not had a bowel movement after 12 hours. And polyethylene glycol (MIRALAX) packet 17 gJump to med 17 g, Oral, Daily PRN, Constipation, Use if senna-docusate is ineffective, Starting on Fri04/12/25 at 0328, Use if no bowel movement after 12 hours. Mix in 6-8 ounces of water. Use 4-8 ounces of water, tea, or juice for each 17 gram dose. And bisacodyl (DULCOLAX) EC tablet 5 mgJump to med 5 mg, Oral, Daily PRN, Constipation, Use if polyethylene glycol is ineffective, Starting on Fri04/12/25 at 0328, Use if no bowel movement after 12 hours. Swallow whole. Do not crush, split, or chew tablet. And bisacodyl (DULCOLAX) suppository 10 mgJump to med 10 mg, Rectal, Daily PRN, Constipation, Use if bisacodyl oral is ineffective, Starting on Fri04/12/25 at 0328, Use if no bowel movement after 12 hours. Hold for diarrhea Group 5: morphine injection 1 mgJump to med 1 mg, Intravenous, Every 4 Hours PRN, Moderate Pain, Starting on Fri04/12/25 at 0328, For 5 days, Based on patient request - if ordered for moderate or severe pain, provider allows for administration of a medication prescribed for a lower pain scale. If given for pain, use the following pain scale: Mild Pain = Pain Score of 1-3, CPOT 1-2 Moderate Pain = Pain Score of 4-6, CPOT 3-4 Severe Pain = Pain Score of 7- 10, CPOT 5-8 And naloxone (NARCAN) injection 0.4 mgJump to med 0.4 mg, Intravenous, Every 5 Minutes PRN, Respiratory Depression, Starting on Fri04/12/25 at 0328, If respiratory rate is less than 8 breaths/minute or patient is difficult to arouse stop any narcotics and contact physician. Administer slow IV push. Repeat as ordered until patient's respiratory rate is greater than 12 breaths/minute. documented in this encounter Additional Health Concerns Infection Onset Date Last Indicated Resolved Time Rhinovirus 04/12/2025 04/12/2025 05/12/2025 9:09 PM EDT documented as of this encounter Care Teams Doctor Of Veterinary Medicine Relationship Specialty Start Date End Date Eben Liu MD [address] [facility] [address] [facility] [place] [address] PCP - General Adolescent Medicine 04/12/25 documented as of this encounter
--- OUTSIDE RECORDS SUMMARY | 2025-04-14 15:30 | XMS_ITS | Encounter Summary ---
Author Organization [facility] Address [address] [place] [address] Care Team Providers Care Collections Agent Name Role Phone Eben Liu MD Primary Care Provider [phone] Reason for Visit * Auth/Cert Specialty Diagnoses / Procedures Referred By Contac t Referred To Contact Diagnoses Cerebrovascular Accident Syncope Referral ID Status Reason Start Date Expiration Date Visits Re quested Visits Authorized [id number] 1 1 Encounter Details Date Type Department Care Team (Latest Contact Info) Description 04/14/2025 3:30 PM EDT - 04/14/2025 11:59 PM EDT Hospital Encounter [facility] [address] [place] [address] Discharge Disposition: Home or Self Care Social History Tobacco Use Types Packs/Day Years Used Date Smoking Tobacco: Former Cigarettes 2 24 1 978 - 2001 Smokeless Tobacco: Never Alcohol Use Standard Drinks/Week Comments Never 0 [...] on file documented as of this encounter Medications at Time of Discharge [...] 04/14/2025 5 documented as of this encounter Plan of Treatment Upcoming Encounters Date Type Department Care Team (Late st Contact Info) Description 06/27/2025 11:00 AM EDT Office Visit [facility] [address] [place] [address] Margarita Blanc, ROGER [address] [facility] [address] [address] documented as of this encounter Procedures Procedure Name Priority Date/Time Associated Diagnosis Comments MOBILE CARDIAC OUTPATIENT TELEMETRY Routine 04/14/2025 3:56 PM EDT Syncope and collapse documented in this encounter Results * MOBILE CARDIAC OUTPATIENT TELEMETRY (04/14/2025 3:56 PM EDT) Heart rate minimum 67 bpm [employer] Heart rate maximum 141 bpm [employer] Heart rate (average) 86 bpm [employer] [...] CV CARDIAC SERVICE S ORDERABLES Final Result documented in this encounter Visit Diagnoses Not on filedocumented in this encounter Additional Health Concerns Infection Onset Date Last Indicated Resolved Time Rhinovirus 04/12/2025 04/12/2025 05/12/2025 9:09 PM EDT documented as of this encounter Care Teams Collections Agent Relationship Specialty Start Date End Date Eben Liu MD [address] [place] [address] [address] [facility] [place] [address] PCP - General Adolescent Medicine 04/12/25 documented as of this encounter
--- OUTSIDE RECORDS SUMMARY | 2025-05-23 15:46 | XMS_ITS | Encounter Summary ---
Author Organization [facility] Address [address] [place] [address] Care Team Providers Care Forepart Reducer Name Role Phone Eben Liu MD Primary Care Provider [phone] Encounter Details Date Type Department Care Team (Late st Contact Info) Description 04/15/2025 Readmission Management [facility] [address] [place] [phone] Danielle James, RN Social History Tobacco Use Types Packs/Day Years Used Date Smoking Tobacco: Former Cigarettes 2 24 1 978 - 2002 Smokeless Tobacco: Never Alcohol Use Standard Drinks/Week [...] on file documented as of this encounter Miscellaneous Notes * Outreach Note - Danielle James RN - 04/15/2025 9:29 AM EDT Images from the original note were not included. Prep Survey Flowsheet Row Responses [facility] patient discharged from? [place] Is LACE score < 7 ? No Eligibility Readm Mgmt Discharge diagnosis Transient neurological symptoms Does the patient have one of the following disease processes/diagnoses(primary or secondary)? Stroke [ possible TIA ] Does the patient have Home health ordered? No Is there a DME ordered? No [prior to admission, pt used oxygen at 2-4 L continuous per CO, providedby [employer] and rollator walker as needed] Comments regarding appointments non [facility] pcp Prep survey completed? Yes Danielle Valverde - Registered Nurse documented in this encounter Plan of Treatment Upcoming Encounters Date Type Department Care Team (Late st Contact Info) Description 06/27/2025 11:00 AM EDT Office Visit [facility] [address] [place] [address] [address] [place] [address] Margarita Blanc APRN [address] [facility] [address] [address] documented as of this encounter Visit Diagnoses Not on filedocumented in this encounter Additional Health Concerns Infection Onset Date Last Indicated Resolved Time Rhinovirus 04/12/2025 04/12/2025 05/12/2025 9:09 PM EDT documented as of this encounter Care Teams Forepart Reducer Relationship Specialty Start Date End Date Eben Liu MD [address] [facility] [address] [place] [address] PCP - General Adolescent Medicine 04/12/25 documented as of this encounter
--- OUTSIDE RECORDS SUMMARY | 2025-05-23 15:46 | XMS_ITS | Encounter Summary ---
Author Organization [facility] Address [address] [place] [address] Care Team Providers Care Supervisor Special Services Name Role Phone Eben Liu MD Primary Care Provider [phone] Encounter Details Date Type Department Care Team (Latest Contact Info) Description 04/12/2025 Travel Social History Tobacco Use Types Packs/Day [...] as of this encounter Functional Status * Question Answer [...] 3:20 AM EDT Karley Goodwin RN * [place] Suicide Severity Rating Scale (Screener/Recent Self-Report) Question Answer Date of Assessment Author 6. Suicidal Behavior (Lifetime) No 3:20 AM EDT Karley Goodwin RN documented as of this encounter Plan of Treatment Upcoming Encounters Date Type Department Care Team (Late st Contact Info) Description 06/27/2025 11:00 AM EDT Office Visit [facility] [address] [facility] [address] [place] [address] Margairta Blanc APRN [address] [facility] [address] [address] documented as of this encounter Visit Diagnoses Not on filedocumented in this encounter Additional Health Concerns Infection Onset Date Last Indicated Resolved Time Rhinovirus 04/12/2025 04/12/2025 05/12/2025 9:09 PM EDT documented as of this encounter Care Teams Supervisor Special Services Relationship Specialty Start Date End Date Eben Liu MD [address] [facility] [address] [place] [address] PCP - General Adolescent Medicine 04/12/25 documented as of this encounter
--- OUTSIDE RECORDS SUMMARY | 2025-05-23 15:47 | XMS_ITS | Encounter Summary ---
Author Organization Healthcare Address [address] [place] [address] Care Team Providers Care French Folding Machine Operator Name Role Phone Eben Liu MD Primary Care Provider [phone] Encounter Details Date Type Department Care Team (Late st Contact Info) Description 04/18/2025 Telephone [facility] [address] [place] [address] Danielle Lees, [facility] Social History Tobacco Use Types Packs/Day Years [...] Description 07/27/2025 9:00 AM EST Office Visit [facility] Medicine Specialties [address] [place] [address] Kamini Fu, DO [address] [place] [address] 07/27/2025 11:15 AM EST Office Visit [facility] Medicine Specialties [address] [place] [address] Bridget Bhat, DO [address] [place] [address] documented as of this encounter Visit Diagnoses Not on filedocumented in this encounter Additional Health Concerns Assessment Noted Time A fall risk assessment has been complete d for the patient 03/18/2025 9:35 AM EDT A Body Mass Index follow-up plan has been documented for the patient 03/18/2025 10:34 AM EDT documented as of this encounter Care Teams French Folding Machine Operator Relationship Specialty Start Date End Date Eben Liu MD [address] [place] [address] PCP - General Internal Medicine 12/19/23 documented as of this encounter
--- OUTSIDE RECORDS SUMMARY | 2025-05-23 15:47 | XMS_ITS | Encounter Summary ---
[facility] Address [address] [place] [address] Care Team Providers Care Forestry Worker Name Role Phone Eben Liu MD Primary Care Provider [phone] Encounter Details Date Type Department Care Team (Late st Contact Info) Description 04/18/2025 Readmission Management [facility] [address] [place] [address] Maliha Parmar, RN Social History Tobacco Use Types Packs/Day [...] encounter Miscellaneous Notes * Outreach Note - Maliha Parmar RN - 04/18/2025 9:34 AM EDT Images from the original note were not included. Stroke Week 1 Survey Flowsheet Row Responses [facility] the patient have one of the following disease processes/diagnoses(primary or secondary)? Stroke Week 1 attempt successful? Yes Call start time [phone] Call end time [phone] Discharge diagnosis Transient neurological symptoms Meds reviewed with patient/caregiver? Yes Is the patient having any side effects they believe may be caused by any medication additions or changes? No Does the patient have all medications ordered at discharge? Yes Is the patient taking all medications as directed (includes completed medication regime)? Yes Medication comments Bleeding precautions discussed Does the patient have a primary care provider? Yes Does the patient have an appointment with their PCP within 7 days of discharge? Yes Comments regarding PCP has followed up with her PCP for a follow up appt Has the patient kept scheduled appointments due by today? Yes The Stroke [facility] at [facility] requests you follow up with them within 30 days for important follow up care. Please call [phone] to schedule this appointment. Thank you. Yes [Stroke clinic appt on 06/23] Has home health visited the patient within 72 hours of discharge? N/A Psychosocial issues? No Does the patient require any assistance with activities of daily living such as eating, bathing, dressing, walking, etc.? No Does the patient have any residual symptoms from stroke/TIA? No Did the patient receive a copy of their discharge instructions? Yes Nursing interventions Reviewed instructions with patient What is the patient's perception of their health status since discharge? Improving Nursing interventions Nurse provided patient education Is the patient/caregiver able to teach back the risk factors for a stroke? History of TIAs, High blood pressure-goal below 120/80 Is the patient/caregiver able to teach back signs and symptoms related to disease process for when to call PCP? Yes Is the patient/caregiver able to teach back signs and symptoms related to disease process for when to call 911? Yes If the patient is a current smoker, are they able to teach back resources for cessation? Not a smoker Is the patient/caregiver able to teach back the hierarchy of who to call/visit for symptoms/problems? PCP, Specialist, Home health nurse, Urgent Care, ED, 911 Yes Is the patient able to teach back FAST for Stroke? B alance: Watch for sudden loss of balance, E yes: Check for vision loss, F shira: Look for an uneven smile, A rm: Check if one arm is weak, S peech: Listen for slurred speech, T anna: Call right away Week 1 call completed? Yes Revoked No further contact(revokes)-requires comment Is the patient interested in additional calls from an ambulatory manager case management? No Would this patient benefit from a Referral to [facility] Social Work? No Wrap up additional comments Doing much better, denies any questions or concerns, has been to see her PCP for a follow up appt, confirmed stroke clinic appt for 06/27, no further calls needed. Call end time [phone] Maliha Ceja - Registered Nurse documented in this encounter Plan of Treatment Upcoming Encounters Date Type Department Care Team (Late st Contact Info) Description 06/27/2025 11:00 AM EDT Office Visit [facility] [address] [place] [address] [place] [address] Margarita Blanc, ROGER [address] [facility] [address] [address] documented as of this encounter Visit Diagnoses Not on filedocumented in this encounter Additional Health Concerns Infection Onset Date Last Indicated Resolved Time Rhinovirus 04/12/2025 04/12/2025 05/12/2025 9:09 PM EDT documented as of this encounter Care Teams Forestry Worker Relationship Specialty Start Date End Date Eben Liu MD [address] [facility] [address] [facility] [address] [place] [address] PCP - General Adolescent Medicine 04/12/25 documented as of this encounter
--- OUTSIDE RECORDS SUMMARY | 2025-05-23 15:47 | XMS_ITS | Encounter Summary ---
Author Organization Healthcare Address [address] [place] [address] Care Team Providers Care Inspector And Unloader Name Role Phone Eben Liu MD Primary Care Provider [phone] Encounter Details Date Type Department Care Team (Late st Contact Info) Description 12/25/2023 Orders Only External Location [address] [place] [address] Provider, External Social History Tobacco Use Types [...] Description 07/27/2025 9:00 AM EST Office [facility] [place] [facility] [address] [place] [address] Kamini Fu, DO [address] [place] [address] 07/27/2025 11:15 AM EST Office Visit [place] [facility] [address] [place] [address] AnticBridget, DO [address] [place] [address] documented as of this encounter [...] documented as of this encounter Care Teams Inspector And Unloader Relationship Specialty Start Date End Date Eben Liu MD [address] [place] [address] PCP - General Internal Medicine 12/19/23 documented as of this encounter
--- OUTSIDE RECORDS SUMMARY | 2025-05-23 15:47 | XMS_ITS | Clinical Summary ---
Author Organization [facility] Address [address] [place] [address] Care Team Providers Care Health Navigator Name Role Phone Eben Liu MD Primary Care Provider [phone] Allergies Active Allergy Reactions Criticality Noted Date [...] mg) by mouth daily. 09/16/19 25 Active ticagrelor (Brilinta) 90 MG tablet Take 1 tablet by mouth 2 times a day. Active Active Problems Problem Noted Date Diagnosed Date [...] Encounters Date Type Department Care Team Description 04/18/2025 Telephone [facility] [address] [place] [address] Danielle Lees RPh 03/18/2025 9:45 AM EDT Office Visit [facility] Medicine Specialties [address] [place] [address] Bridget Bhat DO ILD (interstitial lung disease) ([facility]/HCC) (Primary Dx); Rheumatoid arthritis involving multiple sites with positive rheumatoid factor ([facility]) 03/18/2025 Travel from Last 3 Months Immunizations Immunization Administration Dates Next Due Influenza, High-dose, Split Virus, Trivalent, Injectable, preservative free 06/23/2024,10/14/2018 Influenza, high-dose, quadrivalent 10/14/2018 Influenza, injectable, quadrivalent 05/07/2017 Influenza, injectable, quadrivalent, preservativ e free 07/02/2023,07/08/2019 Influenza, recombinant, quad rivalent, injectable, preservative free 07/14/2020 [place] COVID-19 Vac cine (Jack Cap) 12+ years [...] [facility] [address] [place] [address] Kaimni Fu, DO [address] [place] [address] 07/27/2025 11:15 AM EST Office Visit [facility] Medicine [facility] [address] [place] [address] Bridget Bhat DO [address] [place] [address] Health Maintenance Due Date Last Done Comments [facility]-Bone Density Scan 1960 [facility]-Medicare Annual Wellness (AWV) 1960 [facility]-Infant/Child/Adol SDOH Screenings 1958 Diabetes: Dental Exam 1968 [facility]- SDOH Screenings 1976 [facility]-Adult SDOH Screenings 1976 CT Colonography 2003 Colonoscopy 2003 FIT-DNA 2003 FIT 2003 FOBT 2003 Sigmoidoscopy 2003 [facility]-Colorectal Cancer Screening 2003 [facility]-Breast Cancer Screening 2008 [facility]-Diabetes: Hemoglobin A1C 04/13/2019 10/14/2018 [id number] Vaccine (2 - Pfizer risk series) 04/24/2022 [...] multiple sites with positive rheumatoid factor (CMS/HCC) HEPATITIS C ANTIBODY W/REFLEX TO HCV QUANT PCR Routine 05/10/2020 12:33 PM EDT HEMOGLOBIN A1C Routine 10/14/2018 12:28 PM EST from Last 3 Months or Most Recently Relevant to Health Maintenance Results * (ABNORMAL) Sedimentation Rate, Automated (03/18/2025 10:45 AM EDT) Sedimentation Rate 45(H) <30 mm/hr 2024 1:07 PM EDT [facility] Blood Venous blood specimen / Unknown Venipuncture / Unknown 03/18/2025 10:45 AM EDT 03/18/2025 10:46 AM EDT Bridget Bhat DO LAB BLOOD ORDERABLES Final Resu lt [facility] [address] [place] [address] * (ABNORMAL) CBC and Differential (03/18/2025 10:45 AM EDT) WBC Count 20.11(H) 3.70 - 10.30 10*3/uL LAB HEMATOLOGY METHOD 03/18/2025 12:53 PM EDT [facility] RBC Count 4.70 3.90 - 5.20 10*6/uL LAB HEMATOLOGY METHOD 03/18/2025 12:53 PM EDT [facility] HGB 13.0 11.2 - 15.7 g/dL LAB HEMATOLOGY METHOD 03/18/2025 12:53 PM EDT [facility] HCT 41.8 34.0 - 45.0 % LAB HEMATOLOGY METHOD 03/18/2025 12:53 PM EDT [facility] Platelet Count 378(H) 155 - 369 10*3/uL LAB HEMATOLOGY METHOD 03/18/2025 12:53 PM EDT [facility] MCV 89 79 - 98 fL LAB HEMATOLOGY METHOD 03/18/2025 12:53 PM EDT [facility] MCH 27.7 26.0 - 32.0 pg LAB HEMATOLOGY METHOD 03/18/2025 12:53 PM EDT [facility] MCHC 31.1 30.7 - 35.5 g/dL LAB HEMATOLOGY METHOD 03/18/2025 12:53 PM EDT [facility] RDW 12.9 11.5 - 14.5 % LAB HEMATOLOGY METHOD 03/18/2025 12:53 PM EDT [facility] MPV 11.1 8.8 - 12.5 fL LAB HEMATOLOGY METHOD 03/18/2025 12:53 PM EDT [facility] nRBC 0.0 <=0.0 per 100 WBCs LAB HEMATOLOGY METHOD 03/18/2025 12:53 PM EDT [facility] Differential Type Automated LAB HEMATOLOGY METHOD 03/18/2025 12:53 PM EDT [facility] Neutrophils % 65 % LAB HEMATOLOGY METHOD 03/18/2025 12:53 PM EDT [facility] Lymphocytes % 21 % LAB HEMATOLOGY METHOD 03/18/2025 12:53 PM EDT [facility] Monocytes % 9 % LAB HEMATOLOGY METHOD 03/18/2025 12:53 PM EDT [facility] Eosinophils % 3 % LAB HEMATOLOGY METHOD 03/18/2025 12:53 PM EDT [facility] Basophils % 1 % LAB HEMATOLOGY METHOD 03/18/2025 12:53 PM EDT [facility] Immature Granulocytes % 1 % LAB HEMATOLOGY METHOD 03/18/2025 12:53 PM EDT [facility] Neutrophils Absolute 13.37(H) 1.60 - 6.10 10*3/uL LAB HEMATOLOGY METHOD 03/18/2025 12:53 PM EDT [facility] Lymphocytes Absolute 4.17(H) 1.20 - 3.90 10*3/uL LAB HEMATOLOGY METHOD 03/18/2025 12:53 PM EDT [facility] Monocytes Absolute 1.71(H) 0.30 - 0.90 10*3/uL LAB HEMATOLOGY METHOD 03/18/2025 12:53 PM EDT [facility] Eosinophils Absolute 0.65(H) 0.00 - 0.50 10*3/uL LAB HEMATOLOGY METHOD 03/18/2025 12:53 PM EDT [facility] Basophils Absolute 0.10 0.00 - 0.10 10*3/uL LAB HEMATOLOGY METHOD 03/18/2025 12:53 PM EDT [facility] Immature Granulocytes Absolute 0.11(H) 0.00 - 0.06 10*3/uL LAB HEMATOLOGY METHOD 03/18/2025 12:53 PM EDT [facility] Blood Venous blood specimen / Unknown Venipuncture / Unknown 03/18/2025 10:45 AM EDT 03/18/2025 10:46 AM EDT Narrative [facility] - 03/18/2025 12:53 PM EDT Therapeutic decision making should be based on absolute values, rather than percentages. Bridget Bhat DO LAB BLOOD ORDERABLES Final Resu lt [facility] [address] [place] [address] * (ABNORMAL) C-Reactive Protein, Plasma (03/18/2025 10:45 AM EDT) CRP, Plasma 11.4(H) <=8.0 mg/L 03/18/2025 12:54 PM EDT [facility] Blood Venous blood specimen / Unknown Venipuncture / Unknown 03/18/2025 10:45 AM EDT 03/18/2025 10:46 AM EDT Narrative [facility] - 03/18/2025 12:54 PM EDT This CRP test is appropriate for assessment of infection, systemic inflammation and/or tissue injury. To assess cardiovascular disease risk order high sensitivity CRP (CRPH). us Bridget Bhat DO LAB BLOOD ORDERABLES Final Resu lt [facility] [address] [place] [address] * (ABNORMAL) Comprehensive Metabolic Panel, Plasma (03/18/2025 10:45 AM EDT) Glucose, Plasma 156(H) 74 - 99 mg/dL 03/18/2025 12:54 PM EDT [facility] BUN, Plasma 11 8 - 23 mg/dL 03/18/2025 12:54 PM EDT [facility] Creatinine, Plasma 0.61 0.60 - 1.10 mg/dL 03/18/2025 12:54 PM EDT [facility] BUN/Creatinine Ratio 18 03/18/2025 12:54 PM EDT [facility] Sodium, Plasma 138 136 - 145 mmol/L 03/18/2025 12:54 PM EDT [facility] Potassium, Plasma 4.4 3.6 - 4.9 mmol/L 03/18/2025 12:54 PM EDT [facility] Chloride, Plasma 100 97 - 107 mmol/L 03/18/2025 12:54 PM EDT [facility] CO2, Plasma 26 22 - 29 mmol/L 03/18/2025 12:54 PM EDT [facility] Anion Gap 12 6 - 16 mmol/L 03/18/2025 12:54 PM EDT [facility] Total Calcium, Plasma 9.6 8.9 - 10.2 mg/dL 03/18/2025 12:54 PM EDT [facility] Total Protein 7.2 6.3 - 7.9 g/dL 03/18/2025 12:54 PM EDT [facility] Albumin, Plasma 3.8 3.5 - 5.2 g/dL 03/18/2025 12:54 PM EDT [facility] AST, Plasma 22 10 - 35 U/L 03/18/2025 12:54 PM EDT [facility] ALT, Plasma 20 10 - 35 U/L 03/18/2025 12:54 PM EDT [facility] Alkaline Phosphatase, Plasma 113 46 - 142 U/L 03/18/2025 12:54 PM EDT [facility] Total Bilirubin, Plasma 0.4 0.2 - 1.1 mg/dL 03/18/2025 12:54 PM EDT [facility] eGFRcr 98.7 mL/min/1.7 3m*2 03/18/2025 12:54 PM EDT [facility] Comment:Reported eGFRcr in m L/min/1.73m2 is based the CKD-EPI 2020 equation that does not use a race coefficient. Blood Venous blood specimen / Unknown Venipuncture / Unknown 03/18/2025 10:45 AM EDT 03/18/2025 10:46 AM EDT Bridget Bhat DO LAB BLOOD ORDERABLES Final Resu lt [facility] [address] [place] [address] * Hepatitis C Antibody (05/10/2020 12:33 PM [...] <6.0% Children and Adolescents <7.5% . Source: [employer]. Standards of medical care in diabetes, 2017. Diabetes Care.2017:40 (suppl 1):S1-S135. . HbA1c assay performed by an ion-exchange chromatography method that is certified traceable to the DCCT. 10/14/2018 12:2 8 PM EST 10/14/2018 3:45 PM EST us Historical Provider LAB BLOOD ORDERABLES Final R esult SUNQUEST from Last 3 Months or Most Recently Relevant to Health Maintenance Insurance MEDICARE MEDICARE Care Teams Health Navigator Relationship Specialty Start Date End Date Eben Liu MD [address] [place] [facility] PCP - General Internal Medicine 12/19/23
--- OUTSIDE RECORDS SUMMARY | 2025-05-23 15:47 | XMS_ITS | Encounter Summary ---
Author Organization [facility] Address [address] [place] [address] Care Team Providers Care Associate Curator Name Role Phone Kwame Solomon MD Primary Care Provider [phone] Eben Liu MD Primary Care Provider [phone] Encounter Details Date Type Department Care Team (Late st Contact Info) Description 10/07/2022 Orders Only External Location [address] [place] [id number] Provider, External Social History Tobacco Use Types [...] Description 07/27/2025 9:00 AM EST Office Visit [facility] Medicine [facility]ties [address] [place] [address] Kamini Fu, DO [address] [place] [address] 07/27/2025 11:15 AM EST Office Visit [facility] [address] [place] [address] Bridget Bhat, DO [address] [place] [address] documented as of this encounter [...] documented as of this encounter Care Teams Associate Curator Relationship Specialty Start Date End Date Kwame Solomon MD [address] [facility] [address] [place] [id number] PCP - General 01/19/21 12/18/23 Eben Liu MD [address] [facility] [address] [place] [address] PCP - General Internal Medicine 12/19/23 documented as of this encounter
--- OUTSIDE RECORDS SUMMARY | 2025-05-23 15:47 | XMS_ITS ---
Author Organization [facility] Address [address] [place] [address] Care Team Providers Care News Broadcaster Name Role Phone Eben Liu MD Primary Care Provider [phone] Transplant Episode Lung Candidate [facility] ([place] [place] - KYLEE Referred on 06/23/2024 Marked as Internal Hold on 07/21/2024 Reason: Patient Choice Lung CoordinatorJocelyne Yates Phone: N/A Fax: N/A Email: N/A Care Team Name Role Phone Fax Email Jocelyne Yates Lung Coordinator N/A N/A N/A Events Pre-Transplant Referred: 06/23/2024
--- OUTSIDE RECORDS SUMMARY | 2025-05-23 15:47 | XMS_ITS | Encounter Summary ---
Author Organization Healthcare Address [address] [place] [address] Care Team Providers Care Apron Operator Name Role Phone Eben Liu MD Primary Care Provider [phone] Encounter Details Date Type Department Care Team (Late st Contact Info) Description 12/25/2023 Orders Only External Location [address] [place] [address] Provider, External Social History Tobacco Use Types [...] Description 07/27/2025 9:00 AM EST Office Visit [place] [facility] [address] [place] [address] Kamini Fu, DO [address] [place] [address] 07/27/2025 11:15 AM EST Office Visit [place] [facility] [address] [place] [address] AnticBridget, DO [address] [place] [address] documented as of this encounter [...] documented as of this encounter Care Teams Apron Operator Relationship Specialty Start Date End Date Eben Liu MD [address] [place] [address] PCP - General Internal Medicine 12/19/23 documented as of this encounter
--- OUTSIDE RECORDS SUMMARY | 2025-05-23 15:47 | XMS_ITS | Encounter Summary ---
Author Organization Healthcare Address [address] [place] [address] Care Team Providers Care Drink Mixer Name Role Phone Eben Liu MD Primary Care Provider [phone] Encounter Details Date Type Department Care Team (Late st Contact Info) Description 01/19/2024 Orders Only External Location [address] [place] [address] Provider, External Social History Tobacco Use Types [...] Visit [place] [facility] [address] [place] [address] Kamini Fu, DO [address] [place] [address] 07/27/2025 11:15 AM EST Office Visit [place] [facility] [address] [place] [address] AnticBridget, DO [address] [place] [address] documented [...] documented as of this encounter Care Teams Drink Mixer Relationship Specialty Start Date End Date Eben Liu MD [address] [place] [address] PCP - General Internal Medicine 12/19/23 documented as of this encounter
--- OUTSIDE RECORDS SUMMARY | 2025-05-23 15:47 | XMS_ITS | Clinical Summary ---
Author Organization [facility] Address [address] [place] [address] Care Team Providers Care Negative Turner Apprentice Name Role Phone Eben Liu MD Primary Care Provider [phone] Allergies Active Allergy Reactions Criticality Noted Date Comments Penicillins Anaphylaxis High 04/12/2025 As a child at 1 years old Sulfa Antibiotics Itching,Angioedema 04/12/2025 Medications esomeprazole (nexIUM) 40 MG capsule Take 1 capsule by mouth Every Morning Before Breakfast. Active spironolactone (ALDACTONE) 25 MG tablet Take 1 tablet by mouth Daily. Active Insulin Lispro (humaLOG) 100 UNIT/ML injection Inject 15 Units under the skin into the appropriate area as directed 3 (Three) Times a Day Before Meals. Active isosorbide mononitrate (IMDUR) 60 MG 24 hr tablet Take 1 tablet by mouth Daily. Active insulin glargine (LANTUS, SEMGLEE) 100 UNIT/ML injection Inject 50 Units under the skin into the appropriate area as directed Every Night. Active metoprolol succinate XL (TOPROL-XL) 25 MG 24 hr tablet Take 1 tablet by mouth Daily. Active Semaglutide,0.2 5 or 0.5MG/DOS, (OZEMPIC) 2 MG/1.5ML solution pen-injector Inject 0.25 mg under the skin into the appropriate area as directed 1 (One) Time Per Week. Active Fluticasone-Ume clidin-Vilant (Trelegy Ellipta) 100-62.5-25 MCG/ACT inhaler Inhale 1 puff Daily. Active albuterol (PROVENTIL) (2.5 MG/3ML) 0.083% nebulizer solution Take 2.5 mg by nebulization Every 6 (Six) Hours As Needed for Wheezing. Active albuterol sulfate HFA 108 (90 Base) MCG/ACT inhaler Inhale 2 puffs Every 4 (Four) Hours As Needed for Wheezing. Active acetaminophen (TYLENOL) 325 MG tablet Take 2 tablets by mouth Every 4 (Four) Hours As Needed for Mild Pain. Active atorvastatin (LIPITOR) 80 MG tablet Take 1 tablet by mouth Every Night. 30 tablet Active ticagrelor (BRILINTA) 90 MG tablet tablet Take 1 tablet by mouth 2 (Two) Times a Day. 60 tablet 5 Active polyethylene glycol (MIRALAX) 17 g packet Take 17 g by mouth Daily As Needed (Use if senna-docusate is ineffective). Active aspirin 81 MG chewable tablet Chew 1 tablet Daily for 21 days. OTC x 21 days along with Brilinta. Then Brilinta monotherapy. 5 025 Active Problems Problem Noted Date Diagnosed Date History of stroke 04/13/2025 Transient neurological symptoms 04/13/2025 Chronic respiratory failure with hypoxia 025 Primary hypertension 04/12/2025 Type 2 diabetes mellitus, wi th long-term current use of insulin 04/12/2025 Resolved Problems Problem Noted Date Diagnosed Date Resolved Date Stroke 04/12/2025 04/13/2025 Encounters Date Type Department Care Team Description 04/18/2025 Readmission Management [facility] [address] [place] [address] Maliha Parmar RN 04/15/2025 Readmission Management [facility] [address] [place] [address] Danielle James, RN 04/14/2025 3:30 PM EDT - 04/14/2025 11:59 PM EDT Hospital Encounter [facility] [address] [place] [address] Discharge Disposition: Home or Self Care 04/12/2025 2:43 AM EDT - 04/14/2025 4:11 PM EDT Hospital Encounter [address] [place] [address] Kurt Yoo MD Butler, Jennifer, MD Lyons, Andrea L, MD Cerebrovascular accident (CVA), unspecified mechanism (Primary Dx); Transient neurologic deficit; Type 2 diabetes mellitus with hyperglycemia, with long-term current use of insulin; Transient neurological symptoms; Syncope and collapse Discharge Disposition: Home or Self Care 04/12/2025 Travel from Last 3 Months Social History Tobacco Use Types Packs/Day Years [...] Mass Index 33.32 04/12/2025 7:54 AM EDT Plan of Treatment Upcoming Encounters Date Type Department Care Team (Late st Contact Info) Description 06/27/2025 11:00 AM EDT Office Visit [facility] [address] [facility] [address] [place], [place] [id number] Margarita Blanc, BEATER MACHINE OPERATOR [address] [facility] [address] [place] [id number] Health Maintenance Due Date Last Done Comments DXA SCAN 1958 DIABETIC EYE EXAM 1968 DIABETIC FOOT EXAM 1968 URINE MICROALBUMIN-CREATININ E RATIO (uACR) 1968 MAMMOGRAM 1998 COLOGUARD 2003 COLON CANCER SCREENING 5 YEA R SIGMOIDOSCOPY 2003 COLONOSCOPY 2003 COLORECTAL CANCER SCREENING 2003 CT COLONOGRAPHY 2003 FECAL OCCULT BLOOD TEST 2003 FIT Testing (1 year) 2003 INFLUENZA VACCINE 04/08/2025 06/23/2024, , 07/14/2020, Additional history exists ANNUAL WELLNESS VISIT 04/13/2025 COVID-19 Vaccine (2 - 2024-2 6 season) 2025 04/03/2022 HEMOGLOBIN A1C 10/13/2025 04/12/2025, 10/14/2018 TDAP/TD VACCINES (2 - Td or Tdap) 05/29/2028 018 HEPATITIS C SCREENING Completed 05/10/2020 Pneumococcal Vaccine 50+ Completed 10/04/2022, 09/2016 ZOSTER VACCINE Completed 03/01/2024, 01/03/2023 Procedures Procedure Name Priority Date/Time Associated Diagnosis [...] GLUCOSE FINGERSTICK Routine 04/13/2025 11:39 AM EDT BASIC METABOLIC PANEL Routine 04/13/2025 8:21 AM EDT CBC (NO DIFF) Routine 04/13/2025 8:21 AM EDT B-TYPE NATRIURETIC PEPTIDE Routine 04/13/2025 8:21 AM EDT POCT GLUCOSE [...] BLOOD CULTURE STAT 04/12/2025 9:13 AM EDT MAGNESIUM Routine 04/12/2025 9:04 AM EDT HIGH SENSITIVITIY TROPONIN T 1HR Timed 04/12/2025 9:04 AM EDT LACTIC ACID, REFLEX STAT 04/12/2025 9 :04 AM EDT BLOOD CULTURE STAT 04/12/2025 9:04 AM EDT POCT GLUCOSE FINGERSTICK Routine 04/12/2025 7:15 AM EDT URINALYSIS W/ CULTURE IF INDICATED STAT 04/12/2025 6:48 AM EDT XR CHEST 1 VW Routine 04/12/2025 6:39 AM EDT RESPIRATORY PANEL PCR W/ COVID-19 (SARS-COV-2), SOUND RECORDING TECHNICIAN SWAB IN UTM/VTP, 2 HR TAT Routine 04/12/2025 5:59 AM EDT P2Y12 PLATELET INHIBITION Timed 04/12/2025 4:54 AM EDT TROPONIN Routine 04/12/2025 4:54 AM EDT PHOSPHORUS Routine 04/12/2025 4:54 AM EDT MAGNESIUM Routine 04/12/2025 4:54 AM EDT PROTIME-INR Routine 04/12/2025 4:54 AM EDT LACTIC ACID, PLASMA Routine 04/12/2025 4 :54 AM EDT COMPREHENSIVE METABOLIC PANEL Routine 04/12/2025 4:54 AM EDT CBC WITH AUTO DIFFERENTIAL Routine 04/12/2025 4:54 AM EDT LIPID PANEL Urgent 04/12/2025 4:54 AM EDT HEMOGLOBIN A1C Urgent 04/12/2025 4:54 AM EDT ECG 12-LEAD Routine [...] OUTSIDE HEAD Routine 04/11/2025 12:00 AM EDT from Last 3 Months Results * MOBILE CARDIAC OUTPATIENT TELEMETRY (04/14/2025 3:56 PM EDT) [facility] Heart rate minimum 67 bpm [employer] [...] POC Glucose Once (04/14/2025 11:06 AM EDT) Only the most recent of11 resultswithin the time period is included. Glucose 94 70 - 130 mg/dL 04/14/2025 11:08 AM EDT [facility] Blood 04/14/2025 11:0 6 AM EDT 04/14/2025 11:08 AM EDT Tevin Lees MD POINT OF CARE TEST ORDERABLES Final Result [facility]
[address] [id number], * DUPLEX CAROTID BILATERAL CAR - PERFORMED PROCEDURE (04/14/2025 11:00 AM EDT) Prox CCA PSV 66.2 cm/sec Prox CCA [...] CV VASCULAR ORDERA BLES Final Result * (ABNORMAL) CBC (No Diff) (04/13/2025 8:21 AM EDT) WBC 22.49(H) 3.40 - 10.80 10*3/mm3 04/13/2025 9:00 AM EDT [facility] RBC 4.17 3.77 - 5.28 10*6/mm3 04/13/2025 9:00 AM EDT [facility] Hemoglobin 11.8(L) 12.0 - 15.9 g/dL 04/13/2025 9:00 AM EDT [facility] Hematocrit 36.9 34.0 - 46.6 % 04/13/2025 9:00 AM EDT [facility] MCV 88.5 79.0 - 97.0 fL 04/13/2025 9:00 AM EDT [facility] MCH 28.3 26.6 - 33.0 pg 04/13/2025 9:00 AM EDT [facility] MCHC 32.0 31.5 - 35.7 g/dL 04/13/2025 9:00 AM EDT [facility] RDW 13.0 12.3 - 15.4 % 04/13/2025 9:00 AM EDT [facility] RDW-SD 41.6 37.0 - 54.0 fl 04/13/2025 9:00 AM EDT [facility] MPV 10.3 6.0 - 12.0 fL 04/13/2025 9:00 AM EDT [facility] Platelets 385 140 - 450 10*3/mm3 04/13/2025 9:00 AM EDT [facility] Blood Venipuncture / Unknown 04/13/2025 8:21 AM EDT 04/13/2025 8:53 AM EDT us Tevin Lees MD LAB BLOOD ORDERABLES Final Res ult [facility]
[address] [place] [address], * BNP (04/13/2025 8:21 AM EDT) [facility] proBNP 170.9 0.0 - 900.0 pg/mL 04/13/2025 9:22 AM EDT [facility] Blood Venipuncture / Unknown 04/13/2025 8:21 AM EDT 04/13/2025 8:54 AM EDT Narrative [facility] - 04/13/2025 9:22 AM EDT [...] >75 Positive >1800 [place] 300-1800 Negative <300 us Shakira Barney MD LAB BLOOD ORDERABLES Final Re sult [facility]
[address] [place] [address], * (ABNORMAL) Basic Metabolic Panel (04/13/2025 8:21 AM EDT) Glucose 84 65 - 99 mg/dL 04/13/2025 9:33 AM EDT [facility] BUN 12.0 8.0 - 23.0 mg/dL 04/13/2025 9:33 AM EDT [facility] Creatinine 0.58 0.57 - 1.00 mg/dL 04/13/2025 9:33 AM EDT [facility] Sodium 140 136 - 145 mmol/L 04/13/2025 9:33 AM EDT [facility] Potassium 4.3 3.5 - 5.2 mmol/L 04/13/2025 9:33 AM EDT [facility] Comment:Slight hemolysis det ected by analyzer. Result may be falsely elevated. Chloride 104 98 - 107 mmol/L 04/13/2025 9:33 AM EDT [facility] CO2 23.0 22.0 - 29.0 mmol/L 04/13/2025 9:33 AM EDT [facility] Calcium 8.5(L) 8.6 - 10.5 mg/dL 04/13/2025 9:33 AM EDT [facility] BUN/Creatinine Ratio 20.7 7.0 - 25.0 04/13/2025 9:33 AM EDT [facility] Anion Gap 13.0 5.0 - 15.0 mmol/L 04/13/2025 9:33 AM EDT [facility] eGFR 99.9 >60.0 mL/min/1.7 3 04/13/2025 9:33 AM EDT [facility] Blood Venipuncture / Unknown 04/13/2025 8:21 AM EDT 04/13/2025 8:54 AM EDT Narrative [facility] - 04/13/2025 9:33 AM EDT GFR [...] MD LAB BLOOD ORDERABLES Final Res ult [facility]
[address] [place] [address], * MRI Brain Without Contrast (04/13/2025 1:51 AM EDT) Anatomical Region Laterality Modality Head, Neck N/A Magnetic Resonan ce 04/13/2025 2:47 AM EDT Impressions 04/13/2025 2:53 AM EDT 1.No acute or subacute ischemia. No acute hemorrhage. 2.Tiny old lacunar infarct left thalamus. 3.Mild age-appropriate atrophy. Electronically Signed: Jason Flores MD 04/13/2025 2:53 AM EDT Workstation ID: [id number] Narrative 04/13/2025 2:53 AM EDT MRI BRAIN [...] MD 04/13/2025 2:53 AM EDT Workstation ID: [id number] Nida MitziKathrineShelleynabiljoseluis BEATER MACHINE OPERATOR [facility] MRI ORDERABLES Ciera l Result * Magnesium (04/12/2025 5:48 PM EDT) Only the most recent of3 resultswithin the time period is included. Magnesium 2.2 1.6 - 2.4 mg/dL 04/12/2025 6:28 PM EDT [facility] Blood Venipuncture / Unknown 04/12/2025 5:48 PM EDT 04/12/2025 5:53 PM EDT Tevin Lees MD LAB BLOOD ORDERABLES Final Res ult [facility]
[address] [id number], * CT Angiogram Chest (04/12/2025 4:54 PM [...] MD 04/12/2025 5:13 PM EDT Workstation ID: [id number] Narrative 04/12/2025 5:[address] ANGIOGRAM [...] no acute process identified. Procedure Note Artem Fxo MD - 04/12/2025 CT ANGIOGRAM CHEST Date [...] MD 04/12/2025 5:13 PM EDT Workstation ID: [id number] Martin Duong MD IM CT ORDERABLES Final Resu lt * (ABNORMAL) STAT Lactic Acid, Reflex (04/12/2025 2:12 PM EDT) Only the most recent of3 resultswithin the time period is included. Lactate 2.5(HH) 0.5 - 2.0 mmol/L 04/12/2025 3:09 PM EDT [facility] Comment:Falsely depressed re sults may occur on samples drawn from patients receiving N-Acetylcysteine (NAC) or Metamizole. Blood Venipuncture / Unknown 04/12/2025 2:12 PM EDT 04/12/2025 2:27 PM EDT us Shakira Barney MD LAB BLOOD ORDERABLES Final Re sult [facility]
[address] [place] [address], * ECHO COMPLETE W/ DOPPLER, COLOR FLOW [...] % EF(MOD-sp4) 74.2 % MV E max faustino 74.6 cm/sec MV A max faustino 122.5 cm/sec MV dec time 0.07 sec MV E/A 0.61 IVRT 102.0 ms LA ESV Index (BP) 23.1 ml/m2 Med Peak E' Faustino 9.2 cm/sec Lat Peak E' Faustino 10.6 cm/sec TR max faustino 164.2 cm/sec Avg E/e' ratio 7.54 SV(LVOT) 73.6 ml RV Base 3.3 cm RV Mid 2.8 cm RV Length 6.3 cm TAPSE (>1.6) 2.30 cm RV S' 10.2 cm/sec LA dimension (2D) 3.3 cm LV V1 max 118.7 cm/sec LV V1 max PG 5.6 mmHg LV V1 mean PG 3.2 mmHg LV V1 VTI 25.5 cm Ao pk faustino 305.4 cm/sec Ao max PG 37.3 mmHg [...] of agitated saline was administered. us May Mitzi-Diaz PIÑAN CV ECHO ORDERABLES Ciera l Result * Blood Culture - Blood, Hand, Right (04/12/2025 9:13 AM EDT) Only the most recent of2 resultswithin the time period is included. Blood Culture No growth at 5 days 04/17/2025 10:30 AM EDT [facility] Blood Structure of right hand / Unknown Venipuncture / Unknown 04/12/2025 9:13 AM EDT 04/12/2025 10:29 AM EDT [facility] - 04/17/2025 10:30 AM EDT Aerobic Bottle Only Less than seven (7) mL's of blood was collected. Insufficient quantity may yield false negative results. Shakira Barney MD MICROBIOLOGY - GENERAL ORDERA BLES Final Result Performing Organization Address [facility] Co de Phone Number [facility]
[address] [place] [address], * High Sensitivity Troponin T 1Hr (04/12/2025 9:04 AM EDT) HS Troponin T <6 <14 ng/L 04/12/2025 10:34 AM EDT [facility] Troponin T Numeric Delta 04/12/2025 10:34 AM EDT [facility] Comment:Unable to calculate. Blood Venipuncture / Unknown 04/12/2025 9:04 AM EDT 04/12/2025 10:01 AM EDT [facility] - 04/12/2025 10:34 AM EDT High [...] ORDERABLES Final Re sult Performing Organization Address [facility]/ZIP Co de Phone Number [facility]
[address] [place] [address], [place] [phone] * (ABNORMAL) Urinalysis With Culture If Indicated - Urine, Clean Catch (04/12/2025 6:48 AM EDT) Color, UA Yellow Yellow, Straw 04/12/2025 7:04 AM EDT [facility] Appearance, UA Clear Clear 04/12/2025 7:04 AM [facility] pH, UA 7.0 5.0 - 8.0 04/12/2025 7:[facility] Specific [place], UA 1.008 1.005 - 1.030 04/12/2025 7:04 AM EDT [facility] Glucose, UA 500 mg/dL (2+)(A) Negative 04/12/2025 7:04 AM EDT [facility] Ketones, UA Negative Negative 04/12/2025 7:04 AM [facility] Bilirubin, UA Negative Negative 04/12/2025 7:04 AM [facility] Blood, UA Negative Negative 04/12/2025 7:04 AM EDT [facility] Protein, UA Negative Negative 04/12/2025 7:04 AM [facility] Leuk Esterase, UA Negative Negative 04/12/2025 7:04 AM [facility] Nitrite, UA Negative Negative 04/12/2025 7:04 AM [facility] Urobilinogen, UA 0.2 E.U./dL 0.2 - 1.0 E.U./dL 04/12/2025 7:04 AM [facility] Urine Urine specimen obtained by clean catch procedure / Unknown Collection / Unknown 04/12/2025 6:48 AM EDT 04/12/2025 7:01 AM EDT [facility] - 04/12/2025 7:04 AM EDT In absence of clinical symptoms, the presence of pyuria, bacteria, and/or nitrites on the urinalysis result does not correlate with infection. Urine microscopic not indicated. us Shakira Barney MD URINE ORDERABLES Final Result [facility]
[address] [place] [address], * XR Chest 1 View (04/12/2025 6:39 [...] MD 04/12/2025 7:12 AM EDT Workstation ID: [id number] Narrative 04/12/2025 7:12 AM EDT XR CHEST [...] MD 04/12/2025 7:12 AM EDT Workstation ID: [id number] Shakira Barney MD IMG DIAGNOSTIC IMAGING ORDERA BLES Final Result * (ABNORMAL) Respiratory Panel PCR w/COVID-19(SARS-CoV-2) ELSA/GREGORY/JASMIN/PAD/COR/CLAUDETTE In-House, SOUND RECORDING TECHNICIAN Swab in UTM/VTM, 2 HR TAT - Swab, Nasopharynx (04/12/2025 5:59 AM EDT) [facility] ADENOVIRUS, PCR Not Detected Not Detected BIOFIRE TOR 04/12/2025 8:58 AM EDT [facility] Coronavirus 229E Not Detected Not Detected BIOFIRE TOR 04/12/2025 8:58 AM EDT [facility] Coronavirus HKU1 Not Detected Not Detected [facility]IO[facility]RE [facility] 04/12/2025 8:58 AM EDT [facility] Coronavirus NL63 Not Detected Not Detected [facility]IO[facility]RE [facility] 04/12/2025 8:58 AM EDT [facility] Coronavirus OC43 Not Detected Not Detected [facility]IO[facility]RE [facility] 04/12/2025 8:58 AM EDT [facility] COVID19 Not Detected Not Detected - Ref. Range BIOFIRE [facility] 04/12/2025 8:58 AM EDT [facility] Human Metapneumovirus Not Detected Not Detected BIOFIRE [facility] 04/12/2025 8:58 AM EDT [facility] Human Rhinovirus/Enterov irus Detected(A) Not Detected BIOFIRE [facility] 04/12/2025 8:58 AM EDT [facility] Influenza A PCR Not Detected Not Detected BIOFIRE [facility] 04/12/2025 8:58 AM EDT [facility] Influenza B PCR Not Detected Not Detected BIOFIRE TOR 04/12/2025 8:58 AM EDT [facility] Parainfluenza Virus 1 Not Detected Not Detected BIOFIRE TOR 04/12/2025 8:58 AM EDT [facility] Parainfluenza Virus 2 Not Detected Not Detected BIOFIRE TOR 04/12/2025 8:58 AM EDT [facility] Parainfluenza Virus 3 Not Detected Not Detected BIOFIRE TOR 04/12/2025 8:58 AM EDT [facility] Parainfluenza Virus 4 Not Detected Not Detected BIOFIRE TOR 04/12/2025 8:58 AM EDT [facility] RSV, PCR Not Detected Not Detected BIOFIRE [facility] 04/12/2025 8:58 AM EDT [facility] Bordetella pertussis pcr Not Detected Not [facility]ed [facility] 04/12/2025 8:58 AM EDT [facility] Bordetella parapertussis PCR Not Detected Not Detected [facility]IO[facility]RE [facility] 04/12/2025 8:58 AM EDT [facility] Chlamydophila pneumoniae PCR Not Detected Not Detected [facility]IO[facility]RE [facility] 04/12/2025 8:58 AM EDT [facility] Mycoplasma pneumo by PCR Not Detected Not Detected [facility] 04/12/2025 8:58 AM EDT [facility] Swab Nasopharyngeal structure / Unknown Collection / Unknown 04/12/2025 5:59 AM EDT 04/12/2025 6:47 AM EDT [facility] - 04/12/2025 8:58 AM EDT In [...] MICROBIOLOGY - GENERAL ORDERA BLES Final Result [facility]
[address] [place] [address], * P2Y12 Platelet Inhibition (04/12/2025 4:54 AM EDT) [facility] P2Y12 Reactivity Unit 215 PRU DISK DIFFUSION 04/12/2025 6:45 AM EDT [facility] Blood Venipuncture / Unknown 04/12/2025 4:54 AM EDT 04/12/2025 6:16 AM EDT Narrative [facility] - 04/12/2025 6:45 AM EDT [...] and lab data available to the clinician. Nida Mclaughlin APRN LAB BLOOD ORDERABLES [facility] Result [facility]
[address] [place] [address], * (ABNORMAL) CBC Auto Differential (04/12/2025 4:54 AM EDT) WBC 20.49(H) 3.40 - 10.80 10*3/mm3 04/12/2025 5:21 AM EDT [facility] RBC 4.65 3.77 - 5.28 10*6/mm3 04/12/2025 5:21 AM EDT [facility] Hemoglobin 13.1 12.0 - 15.9 g/dL 04/12/2025 5:21 AM EDT [facility] Hematocrit 42.1 34.0 - 46.6 % 04/12/2025 5:21 AM EDT [facility] MCV 90.5 79.0 - 97.0 fL 04/12/2025 5:21 [facility] MCH 28.2 26.6 - 33.0 pg 04/12/2025 5:21 AM [facility] MCHC 31.1(L) 31.5 - 35.7 g/dL 04/12/2025 5:21 AM [facility] RDW 12.3 12.3 - 15.4 % 04/12/2025 5:21 AM [facility] RDW-SD 40.8 37.0 - 54.0 fl 04/12/2025 5:21 AM [facility] MPV 10.2 6.0 - 12.0 fL 04/12/2025 5:21 AM [facility] Platelets 418 140 - 450 10*3/mm3 04/12/2025 5:21 AM [facility] Neutrophil % 83.9(H) 42.7 - 76.0 % 04/12/2025 5:21 AM [facility] Lymphocyte % 12.5(L) 19.6 - 45.3 % 04/12/2025 5:21 AM [facility] Monocyte % 2.9(L) 5.0 - 12.0 % 04/12/2025 5:21 AM [facility] Eosinophil % 0.0(L) 0.3 - 6.2 % 04/12/2025 5:21 AM [facility] Basophil % 0.2 0.0 - 1.5 % 04/12/2025 5:21 AM [facility] Immature Grans % 0.5 0.0 - 0.5 % 04/12/2025 5:21 AM [facility] Neutrophils, Absolute 17.18(H) 1.70 - 7.00 10*3/mm3 04/12/2025 5:21 AM [facility] Lymphocytes, Absolute 2.57 0.70 - 3.10 10*3/mm3 04/12/2025 5:21 AM [facility] Monocytes, Absolute 0.59 0.10 - 0.90 10*3/mm3 04/12/2025 5:21 AM EDT [facility] Eosinophils, Absolute 0.00 0.00 - 0.40 10*3/mm3 04/12/2025 5:21 AM EDT [facility] Basophils, Absolute 0.04 0.00 - 0.20 10*3/mm3 04/12/2025 5:21 AM EDT [facility] Immature Grans, Absolute 0.11(H) 0.00 - 0.05 10*3/mm3 04/12/2025 5:21 AM EDT [facility] nRBC 0.0 0.0 - 0.2 /100 WBC 04/12/2025 5:21 AM EDT [facility] Blood Venipuncture / Unknown 04/12/2025 4:54 AM EDT 04/12/2025 5:13 AM EDT Shakria Barney MD LAB BLOOD ORDERABLES Final Re sult [facility]
[address] [place] [address], * High Sensitivity Troponin T (04/12/2025 4:54 AM EDT) HS Troponin T <6 <14 ng/L 04/12/2025 5:36 AM EDT [facility] Blood Venipuncture / Unknown 04/12/2025 4:54 AM EDT 04/12/2025 5:05 AM EDT Narrative [facility] - 04/12/2025 5:36 AM EDT [...] injury due to an underlying chronic condition. Shakira Barney MD LAB BLOOD ORDERABLES Final Re sult Performing Organization Address City/[facility] Co de Phone Number [facility]
[address] [place] [address], * Protime-INR (04/12/2025 4:54 AM EDT) Protime 14.1 12.2 - 15.3 Seconds 04/12/2025 5:37 AM EDT [facility] INR 1.02 0.89 - 1.12 04/12/2025 5:37 AM EDT [facility] Blood Venipuncture / Unknown 04/12/2025 4:54 AM EDT 04/12/2025 5:13 AM EDT Shakira Barney MD LAB BLOOD ORDERABLES Final Re sult Performing Organization Address [facility] Co de Phone Number [facility]
[address] [place] [address], * (ABNORMAL) Phosphorus (04/12/2025 4:54 AM EDT) Phosphorus 2.3(L) 2.5 - 4.5 mg/dL 04/12/2025 5:31 AM EDT [facility] Blood Venipuncture / Unknown 04/12/2025 4:54 AM EDT 04/12/2025 5:05 AM EDT Shakira Barney MD LAB BLOOD ORDERABLES Final Re sult Performing Organization Address City/[facility] Co de Phone Number [facility]
[address] [place] [address], * (ABNORMAL) Lactic Acid, Plasma (04/12/2025 4:54 AM EDT) Lactate 2.6(HH) 0.5 - 2.0 mmol/L 04/12/2025 5:32 AM EDT [facility] Comment:Falsely depressed re sults may occur on samples drawn from patients receiving N-Acetylcysteine (NAC) or Metamizole. Blood Venipuncture / Unknown 04/12/2025 4:54 AM EDT 04/12/2025 5:05 AM EDT Shakira Barney MD LAB BLOOD ORDERABLES Final Re sult Performing Organization Address [facility] Co de Phone Number [facility]
[address] [place] [address], * (ABNORMAL) Hemoglobin A1c (04/12/2025 4:54 AM EDT) Hemoglobin A1C 7.57(H) 4.80 - 5.60 % 04/12/2025 6:00 AM EDT [facility] Blood Venipuncture / Unknown 04/12/2025 4:54 AM EDT 04/12/2025 5:05 AM EDT Narrative [facility] - 04/12/2025 6:00 AM EDT Hemoglobin A1C Ranges: Increased Risk for Diabetes 5.7% to 6.4% Diabetes >= 6.5% Diabetic Goal < 7.0% Nida Mclaughlin APRN LAB BLOOD ORDERABLES Fi nal Result Performing Organization Address [facility]/ZIP Co de Phone Number [facility]
[address] [place] [address], * Lipid Panel (04/12/2025 4:54 AM EDT) Total Cholesterol 159 0 - 200 mg/dL 04/12/2025 5:31 AM EDT [facility] Triglycerides 55 0 - 150 mg/dL 04/12/2025 5:31 AM EDT [facility] HDL Cholesterol 48 40 - 60 mg/dL 04/12/2025 5:31 AM EDT [facility] LDL Cholesterol 100 0 - 100 mg/dL 04/12/2025 5:31 AM EDT [facility] VLDL Cholesterol 11 5 - 40 mg/dL 04/12/2025 5:31 AM EDT [facility] LDL/HDL Ratio 2.08 04/12/2025 5:31 AM EDT [facility] Blood Venipuncture / Unknown 04/12/2025 4:54 AM EDT 04/12/2025 5:05 AM EDT Narrative [facility] - 04/12/2025 5:31 AM EDT Cholesterol [...] DURAN LAB BLOOD ORDERABLES Fi nal Result [facility]
[address] [place] [address], * (ABNORMAL) Comprehensive Metabolic Panel (04/12/2025 4:54 AM EDT) Glucose 265(H) 65 - 99 mg/dL 04/12/2025 5:31 AM EDT [facility] BUN 9.7 8.0 - 23.0 mg/dL 04/12/2025 5:31 AM [facility] Creatinine 0.59 0.57 - 1.00 mg/dL 04/12/2025 5:31 AM [facility] Sodium 130(L) 136 - 145 mmol/L 04/12/2025 5:31 AM [facility] Potassium 3.9 3.5 - 5.2 mmol/L 04/12/2025 5:31 AM [facility] Chloride 95(L) 98 - 107 mmol/L 04/12/2025 5:31 AM [facility] CO2 22.0 22.0 - 29.0 mmol/L 04/12/2025 5:31 AM [facility] Calcium 9.3 8.6 - 10.5 mg/dL 04/12/2025 5:31 AM [facility] Total Protein 6.9 6.0 - 8.5 g/dL 04/12/2025 5:31 AM [facility] Albumin 3.5 3.5 - 5.2 g/dL 04/12/2025 5:31 AM [facility] ALT (SGPT) 13 1 - 33 U/L 04/12/2025 5:31 AM [facility] AST (SGOT) 13 1 - 32 U/L 04/12/2025 5:31 AM [facility] Alkaline Phosphatase 128(H) 39 - 117 U/L 04/12/2025 5:31 AM [facility] Total Bilirubin 0.3 0.0 - 1.2 mg/dL 04/12/2025 5:31 AM [facility] Globulin 3.4 gm/dL 04/12/2025 5:31 AM [facility] Comment:Calculated Result A/G Ratio 1.0 g/dL 04/12/2025 5:31 AM [facility] BUN/Creatinine Ratio 16.4 7.0 - 25.0 04/12/2025 5:31 AM [facility] Anion Gap 13.0 5.0 - 15.0 mmol/L 04/12/2025 5:31 AM EDT [facility] eGFR 99.5 >60.0 mL/min/1.7 3 04/12/2025 5:31 AM EDT [facility] Blood Venipuncture / Unknown 04/12/2025 4:54 AM EDT 04/12/2025 5:05 AM EDT Narrative [facility] - 04/12/2025 5:31 AM EDT GFR [...] MD LAB BLOOD ORDERABLES Final Re sult [facility]
[address] [place] [address], * ECG 12 Lead QT Measurement (04/12/2025 [...] Site Right Brachial 04/12/2025 4:28 AM EDT [facility] THERAP[facility] Ron's Test N/A 04/12/2025 4:28 AM EDT [facility] pH, Arterial 7.404 7.350 - 7.450 pH units 04/12/2025 4:28 AM EDT [facility] pCO2, Arterial 42.1 35.0 - 45.0 mm Hg 04/12/2025 4:28 AM EDT [facility] pO2, Arterial 147.0(H) 83.0 - 108.0 mm Hg 04/12/2025 4:28 AM EDT [facility] Comment:83 Value above refer ence range HCO3, Arterial 26.3(H) 20.0 - 26.0 mmol/L 04/12/2025 4:28 AM EDT [facility] Base Excess, Arterial 1.3 0.0 - 2.0 mmol/L 04/12/2025 4:28 AM EDT [facility] Hemoglobin, Blood Gas 13.1(L) 14 - 18 g/dL 04/12/2025 4:28 AM EDT [facility] Comment:84 Value below refer ence range Hematocrit, Blood Gas 40.2 38.0 - 51.0 % 04/12/2025 4:28 AM EDT [facility] Oxyhemoglobin 99.0 94 - 99 % 04/12/2025 4:28 AM EDT [facility] Methemoglobin 0.20 0.00 - 1.50 % 04/12/2025 4:28 AM EDT [facility] Carboxyhemoglobin 0.7 0 - 2 % 025 4:28 AM T [facility] CO2 Content 27.6 22 - 33 mmol/L 04/12/2025 4:28 AM T [facility] Temperature 37.0 04/12/2025 4:28 AM [facility] Barometric Pressure for Blood Gas 04/12/2025 4:28 AM T [facility] Comment:N/A Modality Nasal Cannula 04/12/2025 4:28 AM [facility] THERAP[facility] FIO2 32 % 04/12/2025 4:28 AM [facility] THERAP[facility] Rate 0 Breaths/ minute 04/12/2025 4:28 AM [facility] THERAP[facility] PIP 0 cmH2O 04/12/2025 4:28 AM T [facility] Comment:Meter: [id number] Certified Medicine Aide: [id number] IPAP 0 04/12/2025 4:28 AM T [facility] EPAP 0 04/12/2025 4:28 AM T [facility] pH, Temp Corrected 7.404 pH Units 2024 4:28 AM T [facility] THER[facility] pCO2, Temperature Corrected 42.1 35 - 45 mm Hg 04/12/2025 4:28 AM T [facility] THERAPY pO2, Temperature Corrected 147(H) 83 - 108 mm Hg 04/12/2025 4:28 AM EDT [facility] Arterial Blood 04/12/2025 4: 28 AM EDT 04/12/2025 4:28 AM EDT Result [facility] Shakira Barney MD LAB BLOOD ORDERABLES Final Re sult [facility]
[address] [place] [address], [place] * ECG Scan (04/12/2025) Result [facility] Onbase ECG ORDERABLES Final Result * IMAGING SCANNED (04/12/2025) Only the most recent of3 resultswithin the time period is included. Anatomical Region Laterality Modality Radiographic Anna ging Result [facility] DI[facility]NOSTIC IMAGING ORDERA BLES Final Result * CT Outside Spine (04/11/2025 [...] CT Outside Head (04/11/2025 12:05 AM EDT) Only the most recent of2 resultswithin the time period is included. Narrative SYSTEMGENERATED, DOCUMENTATION - 04/12/2025 6:48 AM EDT This procedure was auto-finalized with no dictation required. us [facility] Outside Films IMG CT ORDERABLES Final Re sult from Last 3 Months Insurance MEDICARE A & B Advance Directives * No CPR (Do Not Attempt to Resuscitate) (Latest Code Status on File) Date Activated Date Inactivated Comments 04/12/2025 12:36 PM 04/14/2025 6:16 PM Question Answer Comments Code Status (Patient has no pulse and is not breathing): No CPR (Do Not Attempt to Resuscitate) Medical Interventions (Patie nt has pulse or is breathing): Limited Support Medical Intervention Limits: No intubation (DNI) Level Of Support Discussed With: Patient * CPR (Attempt to Resuscitate) Date Activated Date Inactivated Comments 04/12/2025 3:29 AM 04/12/2025 12:36 PM Question Answer Comments Code Status (Patient has no pulse and is not breathing): CPR (Attempt to Resuscitate) Medical Interventions (Patie nt has pulse or is breathing): Full Support Level Of Support Discussed With: Patient Care Teams Negative Turner Apprentice Relationship Specialty Start Date End Date Eben Liu MD [address] [place] [address] [place] [address] PCP - General Adolescent Medicine 04/12/25
--- NOTE | 2025-05-23 15:48 | XR_ITS ---
PROCEDURE INFORMATION: Exam: XR Right Hip Exam date and time: 05/23/2025 4:14 PM Age: 64 years old Clinical indication: Hip pain; Right hip; Additional info: Fall, pain TECHNIQUE: Imaging protocol: Radiologic exam of the right hip. Views: 2 or 3 views hip with pelvis when performed. COMPARISON: CT ABDOMEN PELVIS WO CON 12/25/2023 8:31 AM FINDINGS: Bones/joints: Mild osteoarthritis of the right hip joint. No acutely displaced fractures. No joint dislocation. No aggressive osseous lesions. Normal anatomic alignment. The bone density is normal for this patient's age. Soft tissues: No acute soft tissue findings. Vasculature: There are numerous benign phleboliths in the pelvis. IMPRESSION: 1. No acute findings. 2. Mild osteoarthritis.
--- NOTE | 2025-05-23 15:49 | XR_ITS ---
PROCEDURE INFORMATION: Exam: XR Left Hip Exam date and time: 05/23/2025 4:14 PM Age: 64 years old Clinical indication: Hip pain; Left hip; Additional info: Fall, pain TECHNIQUE: Imaging protocol: Radiologic exam of the left hip. Views: 2 or 3 views hip with pelvis when performed. COMPARISON: CT ABDOMEN PELVIS WO CON 12/25/2023 8:31 AM FINDINGS: Bones/joints: There are moderate degenerative changes of the sacroiliac joints. Mild osteoarthritis of the right hip joint. Mild osteoarthritis of the left hip joint. No acutely displaced fractures. No joint dislocation. No aggressive osseous lesions. Soft tissues: No acute soft tissue findings. Vasculature: There are numerous benign phleboliths in the pelvis. IMPRESSION: 1. No acute findings. 2. Mild osteoarthritis.
--- NOTE | 2025-05-23 15:50 | XR_ITS ---
PROCEDURE INFORMATION: Exam: XR Ribs with PA Chest Exam date and time: 05/23/2025 4:14 PM Age: 64 years old Clinical indication: Chest wall pain; Bilateral; Additional info: Fall TECHNIQUE: Imaging protocol: Radiologic exam of the bilateral ribs with PA chest. Views: 4 views COMPARISON: 1. CR XR CHEST PORTABLE 04/11/2025 3:[address] ANGIO CHEST PE PROTOCOL 02/20/2022 3:16 PM FINDINGS: Airway: Airways are patent. Lungs: Extensive mid to basal interstitial reticulation and platelike atelectatic changes. No large airspace consolidations. Pleural spaces: No pleural effusions or pneumothorax. Heart/Mediastinum: Mild cardiomegaly. Vasculature: Calcified aortic knob. Bones/joints: No acutely displaced fractures. No joint dislocation. No aggressive osseous lesions. IMPRESSION: 1. No acute skeletal pathology. 2. Extensive mid to basal interstitial reticulation and platelike atelectatic changes. In keeping with known chronic interstitial lung disease.
== END 2025-05-23 23:59 | disposition home or self-care (01) ==
LOC: RAD 15:43
PROVIDERS: PCP Internal Medicine Adolescent Medicine; Visit Provider Internal Medicine Adolescent Medicine
DX: M16.12 Unilateral primary osteoarthritis, left hip (principal); M16.11 Unilateral primary osteoarthritis, right hip; J64 Unspecified pneumoconiosis; J98.11 Atelectasis; W19.XXXA Unspecified fall, initial encounter; Y92.009 Unspecified place in unspecified non-institutional (private) residence as the place of occurrence of the external cause
CPT/HCPCS: 71111; 73502

== ENCOUNTER 2025-07-01 09:13 | Outpatient (CLI) | payer MEDICARE, SELFPAY ==
[2025-07-01] VITALS (8 sets, daily range): BP systolic 100–160; BP diastolic 46–83; PULSE 70–77; RESP 18–19; TEMP 36.8; O2SAT 97
[2025-07-01 09:48] LABS: Hematocrit 35.4 % (37.0-47.0); Hemoglobin 10.9 g/dL (12.2-16.2); Immature Granulocytes % 0.4 %; Mean Corpuscular HGB Conc 30.8 g/dL (31.8-35.4); Mean Corpuscular Hemoglobin 27.0 pg (27.0-31.2); Mean Corpuscular Volume 87.6 fl (81-99); Nucleated Red Blood Cells % 0 %; Platelet Count 393 K/mm3 (142-424); Red Blood Count 4.04 M/mm3 (4.20-5.40); Red Cell Distribution Width-SD 44.4 fL; White Blood Count 17.3 K/mm3 (4.8-10.8)
[2025-07-01] MEDS: METHYLPREDNISOLONE SOD SUCC 40MG VIAL 40 MG IV (10:07)
[2025-07-01] MEDS: ACETAMINOPHEN 325MG TAB 650 MG PO (10:07)
== END 2025-07-01 23:59 | disposition home or self-care (01) ==
LOC: INF 09:15
PROVIDERS: PCP Internal Medicine Adolescent Medicine; Visit Provider Internal Medicine Rheumatology
DX: M05.79 Rheumatoid arthritis with rheumatoid factor of multiple sites without organ or systems involvement (principal); J84.9 Interstitial pulmonary disease, unspecified
CPT/HCPCS: 85025; 96413; 96415; J2919; J7040; J9312

== ENCOUNTER 2025-07-28 08:49 | Emergency (ER) | payer MEDICARE, SELFPAY ==
--- OUTSIDE RECORDS SUMMARY | 2025-06-27 10:00 | XMS_ITS | Encounter Summary ---
Author Organization [facility] Address [address] [place] [address] Care Team Providers [facility] [place] [facility] Name Role Phone Eben Liu MD Primary Care Provider [phone] Reason for Visit * Reason Comments Establish Care * Consultation (Routine) - Closed Specialty Diagnoses / Procedures Referred By Contac t Referred To Contact Neurology Diagnoses CVA (cerebral vascular accident) Lele Rothman MD [address] [facility] [address] [place] [address] Phone: tel: fax: Margarita Blanc APRN [address] [place] [address] Phone: tel: fax: Referral ID Status Reason Start Date Expiration Date Visits Re quested Visits Authorized [id number] Closed 04/14/2025 07/14/2026 1 1 Encounter Details Date Type Department Care Team (Late st Contact Info) Description 06/27/2025 11:00 AM EDT Office Visit [facility] [address] [facility] [address] [place] [address] Margarita Blanc, ROGER [address] [place] [address] History of TIA (transient ischemic attack) (Primary [...] CAD, RA, COPD, T2DM. She presented to [facility] ED on 04/11/25 for presyncopal event and then b ecame dizzy and had a left sided headache with left blurry vision. They treated her with migraine cocktail, vision somewhat improved. CT head revealed no acute intracranial normality. 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 She is noted to have a white [...] in upper and lower extremities. Coordination Right: Ptukci-fv-txaw normal.Left: Dtdsqv-gi-efuc normal. No obvious dysmetria . Gait Normal gait.Casual gait is normal including stance, stride, and arm swing. Modified [place] Score: 2 0 No Symptoms 1 No [...] MD 04/13/2025 2:53 AM EDT Workstation ID: [id number] CT Angiogram Chest Result Date: 04/12/2025 Impression: 1.No evidence of pulmonary embolism nor other acute cardiopulmonary process. 2.Nonspecific interstitial lung changes with a degree of fibrosis most pronounced in the periphery of the lungbases. Electronically Signed: Artem Fox MD 04/12/2025 5:13 PM EDT Workstation ID: [id number] XR Chest 1 View Result Date: 04/12/2025 Impression: Scattered interstitial coarsening with interspersed airspace opacities, which could reflect pneumonia with possible component of underlying chronic lung disease. Pulmonary edema is a lesslikely differential consideration. No prior exams available for comparison. Electronically Signed: Lore Chávez MD 04/12/2025 7:12 AM EDT Workstation ID: [id number] Laboratory Results: Hemoglobin Date Value Ref Range [...] wear her CPAP consistently at home, her gymnasium teacher is aware -We discussed how untreated ANDRES contributes to resistant hypertension and inability to lose weight -I have encouraged her to follow-up with her gymnasium teacher to discuss other options Discussed the importance [...] 3 months (around 09/27/2025). Margarita Blanc APRN [facility] [place] [facility] Stroke [1] Social History Socioeconomic History [...] mouth Every Morning Before Breakfast., Disp:, Rfl: Fmmldbjrmuu-Hswilgwat-Mrjbph (Trelegy Ellipta) 100-62.5-25 MCG/ACT inhaler, Inhale 1 [...] Description 09/27/2025 11:30 AM EST Office Visit [facility] [address] [place] [id number] Margarita Blanc APRN [address] [facility] [address] [address] documented as of this encounter [...] (pediatric) documented in this encounter Care Teams [facility] Relationship Specialty Start Date End Date Eben Liu MD [address] [facility] [address] [place] [id number] PCP - General Adolescent Medicine 04/12/25 documented as of this encounter
--- OUTSIDE RECORDS SUMMARY | 2025-07-27 09:00 | XMS_ITS | Encounter Summary ---
Author Organization [facility] Address [address] [place] [address] Care Team Providers Care Biological Sciences Professor Name Role Phone Eben Liu MD Primary Care Provider [phone] Reason for Referral * Medications - Authorized Specialty Diagnoses / Procedures Referred By Sallie latif Referred To Contact Diagnoses Pulmonary fibrosis Kamini Fu DO [address] [place] [address] Phone: tel: fax: Referral ID Status Reason Start Date Expiration Date V isits Requested Visits Authorized [id number] Authorized 07/13/2025 09/07/2099 1 1 * Consultation (Routine) - Authorized Specialty Diagnoses / Procedures Referred By Sallie latif Referred To Contact Diagnoses 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) High risk medication use Chronic hypoxemic respiratory failure ANDRES (obstructive sleep apnea) Rheumatoid arthritis involving multiple sites with positive rheumatoid factor (CMS/HCC) Kamini Fu DO [address] [place] [address] Phone: tel: fax: Referral ID Status Reason Start Date Expiration Date V isits Requested Visits Authorized [id number] Authorized 07/27/2025 01/26/2027 1 1 Reason for Visit * Reason Comments Follow-up Chronic hypoxemic re spiratory failure (CMS/HCC) Shortness of Breath Encounter Details Date Type Department Care Team (Late st Contact Info) Description 07/27/2025 9:00 AM EST Office Visit [facility] [address], [address] [place] [address] Kamini Fu DO [address] [place] [address] Chronic hypoxemic respiratory failure (Primary [...] for syncopal episode and one admission to [facility] 07/23- 07/24/2025 for AHRF. Reports good adherence to inhaler therapy. Breathing had been at baseline p/t recent admission to [facility]. Continues to use portable O2 and concentrator [...] 750mg and prednisone 20mg. 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 Morbid obesity ([facility]) Obesity ANDRES on CPAP Personal history of other diseases of the respiratory system History of asthma Personal history of pneumonia (recurrent) History of pneumonia Rheumatoid arthritis involving multiple sites with positive rheumatoid factor ([facility]) since age 36 Sinusitis 06/23/24 UTI (urinary [...] Violence: Not At Risk (04/12/2025) Received from [facility] Abuse Screen Feels Unsafe at Home or Work/School: no Feels Threatened by Someone: no Does Anyone Try to Keep You From Having Contact with Others or Doing Things Outside Your Home?: no Physical Signs of Abuse Present: no Housing Stability: Unknown (04/12/2025) Received from [facility] Housing Stability Current Living Arrangements: home [...] Expiration Date: 01/24/2027 Release to patient in [facility]: Immediate Cystic Fibrosis Respiratory Culture and Gram Stain This patient has been ordered a cystic fibrosis respiratory culture. Although they do not have cystic fibrosis, this patient DOES have severe bronchiectasis, and use of the cystic fibrosis culture protocol is medically necessary. Please contact me with questions. Standing Status: Future Expected Date: 07/27/2025 Expiration Date: 01/24/2027 Release to patient in [facility]: Immediate [1] Follow Up Pulm Standing Status: [...] MD IM PGY-2 Dr. Kamini Fu DO, [facility] Interstitial Lung Disease Specialty Clinic Ems Director, Pulmonary and Critical Care Fellowship at the [facility] primary class teacher Cosigned by Kamini Fu DO at 07/27/2025 [...] will continue on these medications. Labs from [facility] drawn on 07/24/2025 were within range to [...] the skin 4 (four) times a day. Jursaby-Jedcxbmqits-Qurzyqpbrd (Breztri Aerosphere) 160-9-4.8 MCG/ACT aerosol Inhale 2 [...] Description 12/30/2025 9:00 AM EDT Ancillary Procedure [facility] Medicine Specialties [address], [address] [place] [phone] 12/30/2025 10:30 AM EDT Office Visit [facility] Specialties [address], [address] [place] [phone] Kamini Fu, DO [address] [place] [address] 12/30/2025 11:20 AM EDT [facility] Visit [facility] [address], [address] [place] [phone] Bridget Bhat DO [address] [place] [address] Scheduled Orders Name Type Priority Associated Diagnoses [...] documented as of this encounter Care Teams Biological Sciences Professor Relationship Specialty Start Date End Date Eben Liu MD [address] [address] PCP - General Internal Medicine 12/19/23 documented as of this encounter
--- OUTSIDE RECORDS SUMMARY | 2025-07-27 11:15 | XMS_ITS | Encounter Summary ---
Author Organization [facility] Address [address] [place] [address] Care Team Providers Care Laundry Tub Maker Name Role Phone Eben Liu MD Primary Care Provider [phone] Reason for Referral * Consultation (Routine) - Authorized Specialty Diagnoses / Procedures Referred By Contac t Referred To Contact Neurology Diagnoses Cerebrovascular accident (CVA), unspecified mechanism (CMS/HCC) Bridget Bhat DO [address] [place] [address] Phone: tel: fax: [facility] [address] [place] [address] Phone: tel: fax: Referral ID Status Reason Start Date Expiration Date Visits Requested Visits Authorized [id number] Authorized Specialty Services Required 5 01/26/2027 1 1 Reason for Visit * Reason Comments ILD Encounter Details Date Type Department Care Team (Late st Contact Info) Description 07/27/2025 11:15 AM EST Office Visit [facility] [address] [place] [address] Bridget Bhat DO [address] [facility] [address] [place] [id number] Rheumatoid arthritis involving multiple sites with positive [...] of response) HCQ (Lack of reponse) Methotrexate [id number] ( d/c due to ILD/hypersensitivity pneumonitis) Adalimumab [...] has several risk factors for osteoporosis including 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 (several years) and long [...] Influenza, recombinant, quadrivalent, injectable, preservative free 07/14/2020 [employer] COVID-19 Vaccine (Jack Cap) 12+ years ([id number]) [...] Description 12/30/2025 9:00 AM EDT Ancillary Procedure [facility] [address] [place] [address] 12/30/2025 10:30 AM EDT Office Visit [facility] [address] [place] [address] Kamini Fu, DO [address] [place] [address] 12/30/2025 11:20 AM EDT Office Visit [facility] [address] [place] [address] Bridget Bhat DO [address] [place] [address] Scheduled Referrals Name Type Priority Associated Diagnoses Orde r Schedule Neurology Outpatient Referral Routine Cerebrovascular accident (CVA), unspecified mechanism (CMS/HCC) Expected: 07/27/2025 (Approximate), Expires: 01/28/2027 documented as of this encounter Results * (ABNORMAL) IG Profile (07/27/2025 12:43 PM EST) IGA 473(H) 75 - 400 mg/dL 07/27/2025 3:12 PM EST [facility] IGG 897 720 - 1,589 mg/dL 07/27/2025 3:12 PM EST [facility] IGM 26(L) 35 - 225 mg/dL 07/27/2025 3:12 PM EST [facility] Blood Venous blood specimen / Unknown Venipuncture / Unknown 07/27/2025 12:43 PM EST 07/27/2025 12:43 PM EST us Bridget Bhat DO LAB BLOOD ORDERABLES Final Resu lt [facility] [address] [place] [address] * (ABNORMAL) Sedimentation Rate, Automated (07/27/2025 12:43 PM EST) Sedimentation Rate 53(H) <30 mm/hr 2024 2:52 PM EST [facility] Blood Venous blood specimen / Unknown Venipuncture / Unknown 07/27/2025 12:43 PM EST 07/27/2025 12:43 PM EST [employer] LAB BLOOD ORDERABLES Final Resu lt Performing Organization Address [facility]/ZIP Co de Phone Number [facility] [address] [place] [address] * (ABNORMAL) C-Reactive Protein, Plasma (07/27/2025 12:43 PM EST) CRP, Plasma 15.0(H) <=8.0 mg/L 07/27/2025 3:12 PM EST [facility] Blood Venous blood specimen / Unknown Venipuncture / Unknown 07/27/2025 12:43 PM EST 07/27/2025 12:43 PM EST Narrative [facility] - 07/27/2025 3:12 PM EST This CRP test is appropriate for assessment of infection, systemic inflammation and/or tissue injury. To assess cardiovascular disease risk order high sensitivity CRP (CRPH). [employer] LAB BLOOD ORDERABLES Final Resu lt Performing Organization Address [facility] Co de Phone Number [facility] [address] [place] [address] * (ABNORMAL) CBC and Differential (07/27/2025 12:43 PM EST) WBC Count 5.58 3.70 - 10.30 10*3/uL LAB HEMATOLOGY METHOD 07/27/2025 4:38 PM EST [facility] RBC Count 4.40 3.90 - 5.20 10*6/uL LAB HEMATOLOGY METHOD 07/27/2025 4:38 PM EST [facility] HGB 11.9 11.2 - 15.7 g/dL LAB HEMATOLOGY METHOD 07/27/2025 4:38 PM EST [facility] HCT 38.2 34.0 - 45.0 % LAB HEMATOLOGY METHOD 07/27/2025 4:38 PM EST [facility] Platelet Count 485(H) 155 - 369 10*3/uL LAB HEMATOLOGY METHOD 07/27/2025 4:38 PM EST [facility] MCV 87 79 - 98 fL LAB HEMATOLOGY METHOD 07/27/2025 4:38 PM EST [facility] MCH 27.0 26.0 - 32.0 pg LAB HEMATOLOGY METHOD 07/27/2025 4:38 PM EST [facility] MCHC 31.2 30.7 - 35.5 g/dL LAB HEMATOLOGY METHOD 07/27/2025 4:38 PM EST [facility] RDW 13.3 11.5 - 14.5 % LAB HEMATOLOGY METHOD 07/27/2025 4:38 PM EST [facility] MPV 10.5 8.8 - 12.5 fL LAB HEMATOLOGY METHOD 07/27/2025 4:38 PM EST [facility] nRBC 0.0 <=0.0 per 100 WBCs LAB HEMATOLOGY METHOD 07/27/2025 4:38 PM EST [facility] Differential Type Manual LAB HEMATOLOGY METHOD 07/27/2025 4:38 PM EST [facility] Blood Venous blood specimen / Unknown Venipuncture / Unknown 07/27/2025 12:43 PM EST 07/27/2025 12:43 PM EST Narrative [facility] - 07/27/2025 4:38 PM EST [...] DO LAB BLOOD ORDERABLES Final Resu lt [facility] [address] [place] [address] * (ABNORMAL) Comprehensive Metabolic Panel, Plasma (07/27/2025 12:43 PM EST) Glucose, Plasma 156(H) 74 - 99 mg/dL 07/27/2025 3:12 PM EST [facility] BUN, Plasma 19 8 - 23 mg/dL 07/27/2025 3:12 PM EST [facility] Creatinine, Plasma 0.61 0.60 - 1.10 mg/dL 07/27/2025 3:12 PM EST [facility] BUN/Creatinine Ratio 31 07/27/2025 3:12 PM EST [facility] Sodium, Plasma 135(L) 136 - 145 mmol/L 07/27/2025 3:12 PM EST [facility] Potassium, Plasma 4.0 3.6 - 4.9 mmol/L 07/27/2025 3:12 PM EST [facility] Chloride, Plasma 97 97 - 107 mmol/L 07/27/2025 3:12 PM EST [facility] CO2, Plasma 28 22 - 29 mmol/L 07/27/2025 3:12 PM EST [facility] Anion Gap 10 6 - 16 mmol/L 07/27/2025 3:12 PM EST [facility] Total Calcium, Plasma 9.3 8.9 - 10.2 mg/dL 07/27/2025 3:12 PM EST [facility] Total Protein 6.8 6.3 - 7.9 g/dL 07/27/2025 3:12 PM EST [facility] Albumin, Plasma 3.7 3.5 - 5.2 g/dL 07/27/2025 3:12 PM EST [facility] AST, Plasma 10 10 - 35 U/L 07/27/2025 3:12 PM EST [facility] ALT, Plasma 16 10 - 35 U/L 07/27/2025 3:12 PM EST [facility] Alkaline Phosphatase, Plasma 92 46 - 142 U/L 07/27/2025 3:12 PM EST [facility] Total Bilirubin, Plasma 0.5 0.2 - 1.1 mg/dL 07/27/2025 3:12 PM EST [facility] eGFRcr 98.7 mL/min/1.7 3m*2 07/27/2025 3:12 PM EST [facility] Comment:Reported eGFRcr in m L/min/1.73m2 is based the CKD-EPI 2020 equation that does not use a race coefficient. Blood Venous blood specimen / Unknown Venipuncture / Unknown 07/27/2025 12:43 PM EST 07/27/2025 12:43 PM EST us Bridget Bhat DO LAB BLOOD ORDERABLES Final Resu lt [facility] [address] [place] [address] documented in this encounter Visit Diagnoses Diagnosis [...] documented as of this encounter Care Teams Laundry Tub Maker Relationship Specialty Start Date End Date Eben Liu MD [address] [place] [address] PCP - General Internal Medicine 12/19/23 documented as of this encounter
[2025-07-28 08:56] VITALS: BP 125/76; PULSE 94; RESP 22; TEMP 36.8; O2SAT 99; BMI 32.2
[2025-07-28 09:01] VITALS: BP 125/76; PULSE 92; O2SAT 98
--- NOTE | 2025-07-28 09:10 | HMH.EDGENADL ---
Discharge Plan Disposition Patient Disposition: Home, Self-Care Prescriptions Prescriptions: No Action David Mack 160-9-4.8 mcg/actuation HFA aerosol inhaler 2 inh inhalation BID atorvastatin 80 mg tablet 80 mg PO HS Patient Comments: TAKE 1 TABLET BY MOUTH ONCE DAILY AT NIGHT isosorbide mononitrate 30 mg tablet extended release 24 hr 30 mg PO DAILY Patient Comments: TAKE 1 TABLET BY MOUTH ONCE DAILY IN THE MORNING mycophenolate sodium 360 mg tablet,delayed release (DR/EC) 720 mg PO BID Mounjaro 15 mg/0.5 mL pen injector 15 mg SQ QWEEK metoprolol succinate 25 mg tablet extended release 24 hr 25 mg PO BID 90 Days Qty: 180 3RF spironolactone 25 mg tablet 25 mg PO DAILY Qty: 90 3RF albuterol sulfate 90 mcg/actuation HFA aerosol inhaler 2 inh IH Q6H PRN (Reason: shortness of breath or wheezing) 90 Days Qty: 8.5 3RF (DME) inhalational spacing device 1 EACH spacer 1 each MC Q6H Qty: 1 0RF Rx Instructions: Use with Albuterol HFA. aspirin 81 MG tablet,delayed release (DR/EC) 81 mg PO HS insulin glargine [Basaglar KwikPen U-100 Insulin] 100 unit/mL (3 mL) Insulin Pen 40 unit SQ DAILY fluticasone propionate 50 mcg/actuation [place],Suspension 1 spray INTRANASAL DAILY Rx Instructions: administer into each nostril loratadine 10 mg tablet 10 mg PO DAILY esomeprazole magnesium 40 mg capsule,delayed release(DR/EC) 40 mg PO DAILY ipratropium-albuterol 0.5 mg-3 mg(2.5 mg base)/3 mL Solution For Nebulization 3 ml inhalation Q6HP PRN (Reason: shortness of breath or wheezing) Qty: 180 0RF prednisone 20 mg Tablet 40 mg PO DAILY 3 Days Qty: 6 0RF levofloxacin 750 mg tablet 750 mg PO DAILY Qty: 3 0RF Referrals Follow up/Referrals: Elroy Hilario MD [Staff Physician, Oncology] - See instructions Referral Note: July AT 9:30 Eben Liu MD [Primary Care Provider, Internal Medicine] - See instructions Activity Restrictions/Add. Instructions Additional Instructions/Restrictions: Per Dr. Bhat, stop taking your mycophenolate as this may be causing your neutrophil count to be low. You have an appointment with Dr. Meade with our hematology and oncology team on August 01 at 9:30 in the morning. I also encouraged her to follow-up with Dr. Liu tomorrow morning as scheduled. If you develop any signs of infection, such as fever, cough, shortness of breath, worsening pain, burning with urination or if you become concerned for your help for any reason, return to the emergency department for evaluation. Clinical Impressions Clinical Impression: Acute neutrophilia Instructions Patient Instructions: DI for Urinary Tract Infection (UTI), DI for Urinary Tract Infection in Children Print Language Print Language: [place] Discharge ED Provider: Kam Lainez General Adult HPI General Chief complaint: Urogenital-Female Stated complaint: sent by doctor, abnormal blood issues Time Seen by Provider: 07/28/25 09:02 Mode of Arrival: Ambulatory Source of Information: Patient Description of Symptoms (Recalled from ER Triage Doc. by RN): pt reports she is here because her advertising project manager said she had abnormal labs. currently on antibiotics due to a recent hospital admission. states her SOA is improved. she was unsure of what labs were abnormal. having issues urinating History of Present Illness HPI narrative: kiara Sanz is a 64-year-old female with a history of interstitial lung disease on 3 to 4 L supplemental oxygen via nasal cannula at baseline, remote history of tobacco use, hypertension, hyperlipidemia, carotid artery stenosis, coronary artery disease, type 2 diabetes, history of pneumonia, TIA on aspirin and ticagrelor who presents to the emergency department per recommendation of her advertising project manager at the [facility] for concern for low hematocrit and possibly low neutrophil count. She states that she was seen by her advertising project manager for her rheumatoid arthritis as well as her plasma center nurse yesterday and had lab work done. She states that she received a call this morning that said that her hematocrit was 0 and thinks her neutrophil count was low as well and was told to get to the emergency department for lab recheck. Patient states that the pneumonia that she was admitted for over this past week seems to be improving she denies any fevers or cough or shortness of breath or chest pain. She does report that she has not urinated today and normally urinates at this point in the morning and has not. She thinks she has some mild right kidney pain as well. Related Data Home Medications ?Medication ?Instructions ?Recorded ?Confirmed aspirin 81 mg tablet,delayed 81 mg PO heart health 10/29/19 07/23/25 release budesonide 160 mcg-glycopyr 9 2 inh inhalation BID 01/22/24 07/23/25 mcg-formot 4.8 mcg/actuation HFA inhaler (Breztri Aerosphere) atorvastatin 80 mg tablet 80 mg PO HS 05/11/25 07/23/25 isosorbide mononitrate 30 mg 30 mg PO DAILY 05/11/25 07/24/25 tablet,extended release 24 hr mycophenolate sodium 360 mg 720 mg PO BID 05/11/25 07/23/25 tablet,delayed release tirzepatide 15 mg/0.5 mL 15 mg SQ QWEEK 05/11/25 07/23/25 subcutaneous pen injector (Krista) esomeprazole magnesium 40 mg 40 mg PO DAILY 07/23/25 07/23/25 capsule,delayed release fluticasone propionate 50 1 spray intranasal DAILY 07/23/25 07/23/25 mcg/actuation nasal spray,suspension insulin glargine 100 unit/mL (3 40 unit SQ DAILY 07/23/25 07/23/25 mL) subcutaneous pen (Basaglar KwikPen U-100 Insulin) loratadine 10 mg tablet 10 mg PO DAILY 07/23/25 07/23/25 Previous Rx's ?Medication ?Instructions ?Recorded inhalational spacing device ##1 03/18/19 albuterol sulfate 90 mcg/actuation 2 inh inhalation Q6H PRN shortness 05/26/23 aerosol inhaler of breath or wheezing 90 days #8.5 grams spironolactone 25 mg tablet 25 mg PO DAILY FLUID RETENTION #90 01/28/24 tabs metoprolol succinate 25 mg 25 mg PO BID 90 days #180 tabs 05/11/25 tablet,extended release 24 hr ipratropium 0.5 mg-albuterol 3 mg 3 ml inhalation Q6HP PRN shortness 07/24/25 (2.5 mg base)/3 mL nebulization of breath or wheezing #180 mL soln levofloxacin 750 mg tablet 750 mg PO DAILY #3 tabs 07/24/25 prednisone 20 mg tablet 40 mg (2 x 20 mg) PO DAILY 3 days 07/24/25 #6 tabs Allergies Allergy/AdvReac Type Severity Reaction Status Date / Time leflunomide (From ARAVA) Allergy Severe I-RASH Verified 06/20/25 11:23 Penicillins (PENICILLINS) Allergy Intermediate Unknown Verified 06/20/25 11:23 allergy reaction Sulfa (Sulfonamide Allergy Unknown Unknown Verified 06/20/25 11:23 Antibiotics) (SULFA allergy (SULFONAMIDE ANTIBIOTICS)) reaction PFSH [facility] Disclaimer: The information contained in this section may have been updated after the patient was seen, as this information can be updated by other users. Medical History TIA (transient ischemic attack) Chronic cough Allergic rhinitis History of rheumatoid arthritis Chronic hypoxemic respiratory failure Pneumonia due to COVID-19 virus Restrictive lung disease ILD (interstitial lung disease) Eosinophilia Mild persistent asthma Asthma Diastolic dysfunction HLD (hyperlipidemia) HTN (hypertension) Diabetes mellitus Unstable angina Gastroesophageal reflux disease Cardiac murmur Oxygen dependent Atypical angina Dyspnea Chest pain Rheumatoid arthritis COPD (chronic obstructive pulmonary disease) Surgical History Hx of cardiac catheterization Hx of tubal ligation Hx of total hysterectomy Hx of appendectomy Family History Other Cancer Hypertension Kidney disease Social History Smoking Status: Never smoker second hand exposure: No alcohol intake: never current occupational status: retired Travel in the last 8 weeks?: Inside the [place] household members: spouse housing: house current occupational exposures/hazards: No caffeine: Yes Other Medical History Have you received the Flu Vaccine for this season: No Have you received the Pneumonia Vaccine: No ROS Obtained: Yes Systems reviewed as appropriate & no additional complaints except as documented Physical Exam General General appearance: alert and in no apparent distress Head Head exam: atraumatic Eye Eye exam: Present normal appearance ENT ENT exam: Present normal external ear exam Neck Neck exam: Present full ROM Chest Chest inspection: Present symmetric chest wall rise Respiratory Respiratory exam: Present normal lung sounds bilaterally; Absent respiratory distress, wheezes or stridor Cardiovascular Cardiovascular exam: Present regular rate and normal rhythm Abdominal Exam Abdominal exam: Present soft; Absent distention, tenderness, guarding or rebound Extremities Exam Extremities exam: Present normal inspection Back Exam Back exam: Present normal inspection; Absent CVA tenderness (R) or CVA tenderness (L) Neurological Exam Neurological exam: Present alert and oriented X3 Psychiatric Psychiatric exam: Present normal affect Skin Skin exam: Present warm and dry Medical Decision Making Medical Records Screening: Per USPSTF and CDC recommendations, given the prevalence of disease in our region, it is our hospital?s policy to screen for HIV and viral Hepatitis for all patients aged 18 and over and those with ongoing risk factors. Martin Inquiry Pt receiving controlled substance: No Vital Signs: 07/28/25 08:56 07/28/25 09:01 07/28/25 09:30 Temperature 98.2 F Temperature Source Oral Pulse Rate 92 H 87 Pulse Rate [Right] 94 H Respiratory Rate 22 Blood Pressure 125/76 128/68 Blood Pressure [Right Arm] 125/76 Blood Pressure Mean [Right Arm] 92 02 Sat by Pulse Oximetry 99 98 98 Oxygen Delivery Method Nasal Cannula Nasal Cannula Nasal Cannula Oxygen Flow Rate (LPM) 2 2 2 Lab Data Lab Results 07/28/25 09:00: WBC 5.7, RBC 4.27, Hgb 11.9 L, Hct 37.1, MCV 86.9, MCH 27.9, MCHC 32.1, RDW 13.5, Plt Count 457 H, MPV 9.8, Neut % (Auto) 3.7 L, Lymph % (Auto) 48.5, [place] % (Auto) 37.4 H, Eos % (Auto) 9.7, Baso % (Auto) 0.5, Neut # (Auto) 0.2 L*, Lymph # (Auto) 2.8, [place] # (Auto) 2.1 H, Eos # (Auto) 0.6 H, Baso # (Auto) 0.0, Total Counted 100, Neutrophils % (Manual) 2 L, Lymphocytes % (Manual) 63 H, Monocytes % (Manual) 28 H, Eosinophils % (Manual) 7 H, Platelet Estimate Slight increase, Hypochromasia 1+, PT 11.2, INR 1.01, APTT 26.5, Sodium 137, Potassium 4.3, Chloride 96 L, Carbon Dioxide 32 H, Anion Gap 13.3, BUN 23 H, Creatinine 0.70, Estimated Creat Clear 74, Estimated GFR 84, Est GFR ( Amer) 101, Glucose 110 H, Calcium 8.6, Phosphorus 3.9, Magnesium 1.6, Total Bilirubin 0.5, AST 23, ALT 20, Alkaline Phosphatase 84, Total Protein 6.8, Albumin 3.6, Globulin 3.2, Albumin/Globulin Ratio 1.1 07/28/25 09:49: Urine Color Yellow, Urine Appearance Clear, Urine pH 6.5, Ur Specific [place] 1.025, Urine Protein Negative, Urine Glucose (UA) Negative, Urine Ketones Negative, Urine Blood Negative, Urine Nitrate Negative, Urine Bilirubin Negative, Urine Urobilinogen 1.0, Ur Leukocyte Esterase Negative, Urine RBC None, Urine WBC None, Ur Squamous Epith Cells None, Urine Bacteria None 07/28/25 09:00 07/28/25 09:00 Orders (Tests/Meds): ORDERS Category Date Time Status CBC w/Auto Diff [Complete Blood Count Auto Diff] Stat Lab 07/28/25 09:00 Completed CMP [Comprehensive Metabolic Panel] Stat Lab 07/28/25 09:00 Completed Magnesium Stat Lab 07/28/25 09:00 Completed PT INR [Prothrombin Time INR] Stat Lab 07/28/25 09:00 Completed PTT [Activated Partial Thrombo Time] Stat Lab 07/28/25 09:00 Completed Phosphorous Stat Lab 07/28/25 09:00 Completed UA [Urinalysis and Microscopic] Stat Lab 07/28/25 09:49 Completed Medical Decision Narrative: kiara Sanz is a 64-year-old female with a history of interstitial lung disease on 3 to 4 L supplemental oxygen via nasal cannula at baseline, remote history of tobacco use, hypertension, hyperlipidemia, carotid artery stenosis, coronary artery disease, type 2 diabetes, history of pneumonia, TIA on aspirin and ticagrelor who presents to the emergency department per recommendation of her advertising project manager at the [facility] for concern for low hematocrit and possibly low neutrophil count. She states that she was seen by her advertising project manager for her rheumatoid arthritis as well as her plasma center nurse yesterday and had lab work done. She states that she received a call this morning that said that her hematocrit was 0 and thinks her neutrophil count was low as well and was told to get to the emergency department for lab recheck. Patient states that the pneumonia that she was admitted for over this past week seems to be improving she denies any fevers or cough or shortness of breath or chest pain. She does report that she has not urinated today and normally urinates at this point in the morning and has not. She thinks she has some mild right kidney pain as well. On arrival, patient is hemodynamically stable, afebrile, oxygen saturation 98% on baseline 2 L nasal cannula. She is breathing comfortably. Physical exam, as stated above, revealed an overall well-appearing female in no distress. Abdomen is soft, nontender nondistended. Cardiopulmonary exam without wheezing, rales or rhonchi. No cardiac murmurs or rubs. She has no CVA tenderness bilaterally. I have low concern for sepsis but previous records indicate that upon previous admission just last week, patient was noted to be neutropenic and leukopenic. Upon discharge, her neutrophils were 0.1 and her white blood cell count was 3.7. Will recheck blood work today as well as urine studies to rule out urinary tract infection/pyelonephritis, neutropenia/leukopenia/pancytopenia. Workup showed improving total white blood cell count at 5.7 but continued neutropenia with 3.7% neutrophils resulting in absolute neutrophil count of 0.2. Monocytes are continue to remain elevated at 2.1, eosinophils mildly elevated at 0.6. Lymphocytes normal at 2.8. 0 basophils. Coagulation studies unremarkable. Electrolytes within normal image. CO2 is very mildly elevated at 32 but anion gap normal at 13.3. BUN mildly elevated 23 but no MARIANA with creatinine of 0.7. Glucose of 110. Phosphorus normal at 3.9, magnesium normal at 1.6. Total bilirubin normal at 0.5 and liver enzymes within normal limits. Urinalysis without blood or evidence of infection. Patient's advertising project manager, Dr. Bhat, requested that I speak with her per the patient. Will attempt to reach out to patient's advertising project manager for further discussion. Patient does note that she has an appointment with Dr. Liu in the morning. I spoke with Dr. Bhat at approximately 10:25 AM. She recommended patient stop taking the mycophenolate as this can cause her neutrophilia and historically she has had high neutrophil count. She recommends follow-up with a freelance recruiter. Patient has been scheduled for an appointment with Dr. Meade here in [place] August 01 at 9:30 AM. I do not appreciate any evidence of an acute infection on today's visit and do feel that she is appropriate discharge at this time as she has close follow-up with her primary care doctor and hematology this upcoming week. I did give patient strict return precautions for any evidence of new or worsening infection. All questions were answered. She demonstrated understanding and was in agreement this plan. She was then discharged from the emergency department in stable condition. Critical Care Critical Care Time Critical Care Time: No
[2025-07-28 09:16] LABS: Hematocrit 37.1 % (37.0-47.0); Hemoglobin 11.9 g/dL (12.2-16.2); Immature Granulocytes % 0.2 %; Mean Corpuscular HGB Conc 32.1 g/dL (31.8-35.4); Mean Corpuscular Hemoglobin 27.9 pg (27.0-31.2); Mean Corpuscular Volume 86.9 fl (81-99); Nucleated Red Blood Cells % 0 %; Platelet Count 457 K/mm3 (142-424); Red Blood Count 4.27 M/mm3 (4.20-5.40); Red Cell Distribution Width-SD 42.4 fL; White Blood Count 5.7 K/mm3 (4.8-10.8)
[2025-07-28 09:22] LABS: Albumin Level 3.6 g/dl (3.5-5.0); Chloride 96 mmol/L (98-107); Potassium 4.3 mmoL/L (3.5-5.1); Sodium 137 mmol/L (136-145)
[2025-07-28 09:25] LABS: Activated Partial Thrombo Time 26.5 seconds (22.8-30.6); Alanine Aminotransferase 20 U/L (12-78); Albumin/Globulin Ratio 1.1 (1.1-1.8); Alkaline Phosphatase 84 U/L (38-126); Anion Gap 13.3 mEq/L (5-15); Aspartate Amino Transferase 23 U/L (14-36); Bilirubin,Total 0.5 mg/dl (0.2-1.3); Blood Urea Nitrogen 23 mg/dl (7-17); Carbon Dioxide 32 mmol/L (22.0-30.0); Creatinine Clearance Estimated 74 mL/min (50-200); Creatinine,Serum 0.70 mg/dl (0.52-1.04); Estimated Glomerular Filt Rate 84 ml/min (>60); GFR (African American) 101 ML/MIN (>60); Globulin 3.2 g/dL (1.3-3.2); INR 1.01 (0.9-1.1); Phosphorous 3.9 mg/dl (2.5-4.5); Prothrombin Time 11.2 seconds (10.1-12.5); Total Protein,Serum 6.8 g/dl (6.3-8.2)
[2025-07-28 09:26] LABS: Calcium 8.6 mg/dl (8.4-10.2); Glucose 110 mg/dl (74-100); Magnesium 1.6 mg/dl (1.6-2.3)
[2025-07-28 09:30] VITALS: BP 128/68; PULSE 87; O2SAT 98
[2025-07-28 09:52] LABS: Microscopic, Urine URINE MICROSCOPIC (MICROSCOPIC)
[2025-07-28 10:03] LABS: Bilirubin,Urine Negative (Negative); Color,Urine YELLOW (Yellow); Glucose,Urine (UA) Negative (Negative); Ketones,Urine Negative (Negative); Leukocyte Esterase,Urine Negative (Negative); PH,Urine 6.5 (5.0-8.5); Protein,Urine Negative (Negative); Specific Gravity, Urine 1.025 (1.005-1.030); Urobilinogen,Urine 1.0 EU/dl (0.2)
--- OUTSIDE RECORDS SUMMARY | 2025-07-28 10:20 | XMS_ITS | Encounter Summary ---
Author Organization Healthcare Address [address] [place] [address] Care Team Providers Care Larriman Helper Name Role Phone Eben Liu MD Primary Care Provider [phone] Encounter Details Date Type Department Care Team ([facility] st Contact Info) Description 07/23/2025 Orders Only External Location [address] [place] [address] Provider, External Social History Tobacco Use Types Packs/Day Years Used Date Smoking Tobacco: Former Cigarettes 1.5 20 1 982 - 2002 Pipe Passive Smoke Exposure: Past Smokeless Tobacco: [...] Description 12/30/2025 9:00 AM EDT Ancillary Procedure [facility] Medicine Specialties [address], [address] [place] [address] 12/30/2025 10:30 AM EDT Office Visit [facility] Medicine Specialties [address], [address] [place] [address] CamacKamini R, DO [address] [place] [address] 12/30/2025 11:20 AM EDT Office Visit [facility] Medicine Specialties [address], [address] [place] [address] Bridget Bhat, DO [address] [place] [address] documented as of this encounter Procedures Procedure Name Priority Date/Time Associated Diagnosis Comments XR OUTSIDE IMAGES 07/23/2025 9:05 AM EST documented in this encounter Results * XR OUTSIDE IMAGES (07/23/2025 9:05 AM EST) Anatomical Region Laterality Modality Radiographic Anna ging 07/23/2025 9:05 AM EST us External Provider IMG XR PROCEDURES Edited Resul t - Final documented in this encounter Visit Diagnoses Not on filedocumented in this encounter Additional Health Concerns Assessment Noted Time A fall risk assessment has been complete d for the patient 03/18/2025 9:35 AM EDT A Body Mass Index follow-up plan has been documented for the patient 03/18/2025 10:34 AM EDT documented as of this encounter Care Teams Larriman Helper Relationship Specialty Start Date End Date Eben Liu MD [address] [place] [address] PCP - General Internal Medicine 12/19/23 documented as of this encounter
--- OUTSIDE RECORDS SUMMARY | 2025-07-28 10:20 | XMS_ITS | Encounter Summary ---
Author Organization Healthcare Address [address] [place] [address] Care Team Providers Care Tooth Clerk Name Role Phone Eben Liu MD Primary Care Provider [phone] Encounter Details Date Type Department Care Team (Latest Contact Info) Description 07/27/2025 Travel Social History Tobacco Use Types Packs/Day [...] as of this encounter Functional Status * Over the [...] too much Several days 07/27/2025 11:45 AM Jnenifer Dickerson Feeling tired or having james le [...] Jennifer Burch documented as of this encounter Plan of Treatment Upcoming Encounters Date Type Department Care Team (Late st Contact Info) Description 12/30/2025 9:00 AM EDT Ancillary Procedure [facility] Medicine Specialties [address], [address] [place] [address] 12/30/2025 10:30 AM EDT Office Visit [facility] Medicine Specialties [address], [address] [place] [address] Kamini Fu, DO [address] [place] [address] 12/30/2025 11:20 AM EDT Office Visit [facility] Specialties [address], [address] [place] [address] Bridget Bhat, DO [address] [place] [address] documented as of this encounter [...] documented as of this encounter Care Teams Tooth Clerk Relationship Specialty Start Date End Date Eben Liu MD [address] [place] [address] PCP - General Internal Medicine 12/19/23 documented as of this encounter
--- OUTSIDE RECORDS SUMMARY | 2025-07-28 10:20 | XMS_ITS ---
Author Organization [facility] Address [address] [place] [address] Care Team Providers Care Fudger Name Role Phone Eben Liu MD Primary Care Provider [phone] Transplant Episode Lung Candidate [facility] ([place], [place]) - KYLEE Referred on 06/23/2024 Marked as Internal Hold on 07/21/2024 Reason: Patient Choice Lung CoordinatorJocelyne Yates Phone: N/A Fax: N/A Email: N/A Care Team Name Role Phone Fax Email Jocelyne Yates Lung Coordinator N/A N/A N/A Events Pre-Transplant Referred: 06/23/2024
--- OUTSIDE RECORDS SUMMARY | 2025-07-28 10:20 | XMS_ITS | Encounter Summary ---
Author Organization Healthcare Address [address] [place] [address] Care Team Providers Care Psychology Assistant Name Role Phone Eben Liu MD Primary Care Provider [phone] Encounter Details Date Type Department Care Team (Late st Contact Info) Description 07/28/2025 Telephone [facility] [address], [address] [place] [address] Bridget Bhat DO [address] [place] [address] Social History Tobacco Use Types Packs/Day Years [...] as of this encounter Miscellaneous Notes * Telephone Encounter - Bridget Bhat DO - 07/28/2025 8:10 AM EST Spoke to patient about neutrophil count of 0, recommend ED for hematologic emergency and reevaluation. Patient voiced understanding and said she will go to the ED. documented in this encounter Plan of Treatment Upcoming Encounters Date Type Department Care Team (Late st Contact Info) Description 12/30/2025 9:00 AM EDT Ancillary Procedure [facility] Medicine Specialties [address], [address] [place] [address] 12/30/2025 10:30 AM EDT Office Visit [facility] Medicine Specialties [address], [address] [place] [address] Kamini Fu DO [address] [place] [address] 12/30/2025 11:20 AM EDT Office Visit [facility] Medicine Specialties [address], [address] [place] [address] Bridget Bhat DO [address] [place] [address] documented as of this encounter Visit Diagnoses [...] documented as of this encounter Care Teams Psychology Assistant Relationship Specialty Start Date End Date Eben Liu MD [address] [place] [address] PCP - General Internal Medicine 12/19/23 documented as of this encounter
--- OUTSIDE RECORDS SUMMARY | 2025-07-28 10:20 | XMS_ITS | Encounter Summary ---
Author Organization Healthcare Address [address] [place] [address] Care Team Providers Care Home Staging Specialist Name Role Phone Eben Liu MD Primary Care Provider [phone] Encounter Details Date Type Department Care Team (Late st Contact Info) Description 07/27/2025 Orders Only [facility] Medicine Specialties [address], [address] [place] [address] Marley Brown MD [address] [place] [address] Neutropenia, unspecified type (CMS/HCC) (Primary Dx) Social History Tobacco Use Types [...] Description 12/30/2025 9:00 AM EDT Ancillary Procedure [facility] Medicine Specialties [address], [address] [place] [address] 12/30/2025 10:30 AM EDT Office Visit [facility] [address], [address]nd [place] [address] Camac, Kamini R, DO [address] [place] [address] 12/30/2025 11:20 AM EDT Office Visit [facility] [address], [address] [place] [address] AnticBridget, DO [address] [place] [address] Scheduled Orders Name Type Priority Associated Diagnoses Orde r Schedule CBC and differential Lab Routine Neutropenia, unspecified type (CMS/HCC) Expected: 07/27/2025 (Approximate), Expires: 01/28/2027 Peripheral Blood Smear Pathology and Cytology Routine Neutropenia, unspecified type (CMS/HCC) Expected: 07/27/2025 (Approximate), Expires: 01/28/2027 documented as of this encounter Visit Diagnoses Diagnosis Neutropenia, unspecified type (CMS/HCC)- Primary documented in this encounter Additional Health Concerns Assessment Noted Time PHQ-9 Depression Total Score: 2 07/27/20 25 11:45 AM EST A fall risk assessment has been complete d for the patient 07/27/2025 11:46 AM EST A Body Mass Index follow-up plan has been documented for the patient 07/27/2025 12:18 PM EST documented as of this encounter Care Teams Home Staging Specialist Relationship Specialty Start Date End Date Eben Liu MD [address] [place] [address] PCP - General Internal Medicine 12/19/23 documented as of this encounter
--- OUTSIDE RECORDS SUMMARY | 2025-07-28 10:20 | XMS_ITS | Encounter Summary ---
Author Organization Healthcare Address [address] [place] [address] Care Team Providers Care Quality Control Name Role Phone Eben Liu MD Primary Care Provider [phone] Encounter Details Date Type Department Care Team (Late st Contact Info) Description 07/27/2025 Orders Only [facility] Medicine Specialties [address], [address] [place] [address] Elroy Rosenthal MD [address] [place] [address] ILD (interstitial lung disease) (CMS/HCC) (Primary Dx); Dyspnea, unspecified Social History Tobacco Use Types Packs/Day Years [...] Procedure [facility] Medicine Specialties [address], [address] [place] [address] 12/30/2025 10:30 AM EDT Office Visit [facility] Medicine [facility] [address], [address] [place] [address] CamKamini santana R, DO [address] [place] [address] 12/30/2025 11:20 AM EDT Office Visit [facility] Medicine [facility] [address], [address] [place] [address] AnticBridget, DO [address] [place] [address] documented as of this encounter Results * N-Terminal Probnp, Plasma (07/27/2025 12:43 PM EST) N-Terminal, PROBNP, Plasma 269 0 - 899 pg/mL 07/27/2025 3:12 PM EST [facility] Blood Venous blood specimen / Unknown Venipuncture / Unknown 07/27/2025 12:43 PM EST 07/27/2025 12:43 PM EST us Elroy Rosenthal MD LAB BLOOD ORDERABLES Final R esult [facility] [address] [place] [address] documented in this encounter Visit Diagnoses Diagnosis ILD (interstitial lung disease) (CMS/HCC)- Primary Postinflammatory pulmonary fibrosis Dyspnea, unspecified documented in this encounter Additional Health Concerns Assessment Noted Time PHQ-9 Depression Total Score: 2 07/27/20 25 11:45 AM EST A fall risk assessment has been complete d for the patient 07/27/2025 11:46 AM EST A Body Mass Index follow-up plan has been documented for the patient 07/27/2025 12:18 PM EST documented as of this encounter Care Teams Quality Control Relationship Specialty Start Date End Date Eben Liu MD [address] [place] [address] PCP - General Internal Medicine 12/19/23 documented as of this encounter
--- OUTSIDE RECORDS SUMMARY | 2025-07-28 10:20 | XMS_ITS | Encounter Summary ---
Author Organization Healthcare Address [address] [place] [address] Care Team Providers Care County Assessor Name Role Phone Eben Liu MD Primary Care Provider [phone] Encounter Details Date Type Department Care Team ([facility] st Contact Info) Description 07/23/2025 Orders Only External Location [address] [place] [address] Provider, External Social History Tobacco Use Types [...] Description 12/30/2025 9:00 AM EDT Ancillary Procedure [facility] Medicine Specialties [address], [address] [place] [address] 12/30/2025 10:30 AM EDT Office Visit [facility] Medicine Specialties [address], [address] [place] [address] Camac, Kamini R, DO [address] [place] [address] 12/30/2025 11:20 AM EDT Office Visit [facility] Medicine Specialties [address], [address] [place] [address] Bridget Bhat, DO [address] [place] [address] documented as of this encounter Procedures Procedure Name Priority Date/Time Associated Diagnosis Comments CT THORACIC OUTSIDE IMAGES 07/23/2025 10:17 AM EST documented in this encounter Results * CT THORACIC OUTSIDE IMAGES (07/23/2025 10:17 AM EST) Anatomical Region Laterality Modality Computed Tomogra phy 07/23/2025 10:1 7 AM EST us External Provider IMG CT PROCEDURES Edited Resul t - Final documented in this encounter Visit Diagnoses Not on filedocumented in this encounter Additional Health Concerns Assessment Noted Time A fall risk assessment has been complete d for the patient 03/18/2025 9:35 AM EDT A Body Mass Index follow-up plan has been documented for the patient 03/18/2025 10:34 AM EDT documented as of this encounter Care Teams County Assessor Relationship Specialty Start Date End Date Eben Liu MD [address] [place] [address] PCP - General Internal Medicine 12/19/23 documented as of this encounter
--- OUTSIDE RECORDS SUMMARY | 2025-07-28 10:20 | XMS_ITS | Encounter Summary ---
Author Organization Healthcare Address [address] [place] [address] Care Team Providers Care Semiconductors Wafer Breaker Name Role Phone Eben Liu MD Primary Care Provider [phone] Encounter Details Date Type Department Care Team (Late st Contact Info) Description 07/27/2025 Telephone [facility] [address] [place] [address] Jazzy Lui, credit manager None None Social History Tobacco Use Types Packs/Day Years [...] Not difficult at all 07/27/2025 11:45 AM EST Jennifer Franco documented as of this encounter Miscellaneous Notes * Telephone Encounter - Sincere Chavez, PharmD - 07/27/2025 1:48 PM EST NST CA#1: Patient told me she was hearing some background noise on the line. We hung up and I triedagain but had to LVM documented in this encounter Plan of Treatment Upcoming Encounters Date Type Department Care Team (Late st Contact Info) Description 12/30/2025 9:00 AM EDT Ancillary Procedure [facility] Medicine Specialties [address], [address] [place] [address] 12/30/2025 10:30 AM EDT Office Visit [facility] Medicine [facility] [address], [address] [place] [address] CamacKamini R, DO [address] [place] [address] 12/30/2025 11:20 AM EDT Office Visit [facility] [address], [address] [place] [address] Bridget Bhat, DO [address] [place] [address] documented as of this encounter Visit Diagnoses [...] documented as of this encounter Care Teams Semiconductors Wafer Breaker Relationship Specialty Start Date End Date Eben Liu MD [address] [place] [address] PCP - General Internal Medicine 12/19/23 documented as of this encounter
--- OUTSIDE RECORDS SUMMARY | 2025-07-28 10:21 | XMS_ITS | Encounter Summary ---
Author Organization Healthcare Address [address] [place] [address] Care Team Providers Care Bread Stacker Name Role Phone Eben Liu MD Primary Care Provider [phone] Encounter Details Date Type Department Care Team (Late st Contact Info) Description 06/08/2025 Telephone [facility] [address] [place] [address] Ananya Rubio, PharmD None None Social History Tobacco Use Types [...] encounter Miscellaneous Notes * Addendum Note - Deysi Gomez PharmD - 07/05/2025 12:20 PM EDTAddended by: DEYSI GOMEZ on: 07/05/2025 12:20 PM Modules accepted: Orders * Progress Notes - Deysi Gomez PharmD - 06/08/2025 2:51 PM EDT Resent prescription(s) to requested pharmacy due to: Patient enrolled through PAP documented in this encounter Plan of Treatment Upcoming Encounters Date Type Department Care Team (Late st Contact Info) Description 12/30/2025 9:00 AM EDT Ancillary Procedure [facility] Medicine Specialties [address], [address] [place] [address] 12/30/2025 10:30 AM EDT Office Visit [facility] [address], [address] [place] [address] Kamini Fu, DO [address] [place] [address] 12/30/2025 11:20 AM EDT Office Visit [facility] [address], [address] [place] [address] Bridget Bhat, DO [address] [place] [address] documented as of this encounter Visit Diagnoses Diagnosis Seropositive rheumatoid arthritis of multiple sites (CMS/HCC) documented in this encounter Additional Health Concerns Assessment Noted Time A fall risk assessment has been complete d for the patient 03/18/2025 9:35 AM EDT A Body Mass Index follow-up plan has been documented for the patient 03/18/2025 10:34 AM EDT documented as of this encounter Care Teams Bread Stacker Relationship Specialty Start Date End Date Eben Liu MD [address] [place] [address] PCP - General Internal Medicine 12/19/23 documented as of this encounter
--- OUTSIDE RECORDS SUMMARY | 2025-07-28 10:21 | XMS_ITS | Encounter Summary ---
Author Organization Healthcare Address [address] [place] [address] Care Team Providers Care Internal Auditor Name Role Phone Eben Liu MD Primary Care Provider [phone] Encounter Details Date Type Department Care Team (Late st Contact Info) Description 01/19/2024 Orders Only External Location [address] [place] [address] Provider, External Social History Tobacco Use Types [...] Description 12/30/2025 9:00 AM EDT Ancillary Procedure [facility] Medicine Specialties [address], [address] [place] [address] 12/30/2025 10:30 AM EDT Office Visit [facility] Medicine Specialties [address], [address] [place] [address] CamKamini santana Rahul, DO [address] [place] [address] 12/30/2025 11:20 AM EDT Office Visit [facility] Medicine Specialties [address], [address] [place] [address] Bridget Bhat, DO [address] [place] [address] documented as of this encounter [...] documented as of this encounter Care Teams Internal Auditor Relationship Specialty Start Date End Date Eben Liu MD [address] [place], [place] [address] PCP - General Internal Medicine 12/19/23 documented as of this encounter
--- OUTSIDE RECORDS SUMMARY | 2025-07-28 10:21 | XMS_ITS | Encounter Summary ---
Author Organization Healthcare Address [address] [place] [address] Care Team Providers Care Autocad Draftsman Name Role Phone Eben Liu MD Primary Care Provider [phone] Encounter Details Date Type Department Care Team (Late st Contact Info) Description 12/25/2023 Orders Only External Location [address] [place] [address] Provider, External Social History Tobacco Use Types [...] Description 12/30/2025 9:00 AM EDT Ancillary Procedure [facility] Medicine Specialties [address], [address] [place] [address] 12/30/2025 10:30 AM EDT Office Visit [facility] Medicine Specialties [address], [address] [place] [address] CamKamini santana R, DO [address] [place] [address] 12/30/2025 11:20 AM EDT Office Visit [facility] Medicine Specialties [address], [address] [place] [address] Bridget Bhat, DO [address] [place] [address] documented as of this encounter Procedures Procedure Name Priority Date/Time Associated Diagnosis Comments CT NEURO OUTSIDE IMAGES 12/25/2023 8:34 AM EDT documented in this encounter Results * CT NEURO OUTSIDE IMAGES (12/25/2023 8:34 AM EDT) Anatomical Region Laterality Modality Computed Tomogra phy 12/25/2023 8:34 AM EDT us External Provider IMG CT PROCEDURES Final Result documented in this encounter Visit Diagnoses Not on filedocumented in this encounter Additional Health Concerns Assessment Noted Time A fall risk assessment has been complete d for the patient 12/19/2023 9:10 AM EDT A Body Mass Index follow-up plan has been documented for the patient 12/19/2023 10:51 AM EDT documented as of this encounter Care Teams Autocad Draftsman Relationship Specialty Start Date End Date Eben Liu MD [address] [place], [place] [address] PCP - General Internal Medicine 12/19/23 documented as of this encounter
--- OUTSIDE RECORDS SUMMARY | 2025-07-28 10:21 | XMS_ITS | Encounter Summary ---
Author Organization [facility] Address [address] [place] [address] Care Team Providers Care Power House Engineer Name Role Phone Kwame Solomon MD Primary Care Provider [phone] Eben Liu MD Primary Care Provider [phone] Encounter Details Date Type Department Care Team (Late st Contact Info) Description 10/07/2022 Orders Only External Location [address] [place] [address] Provider, External Social History Tobacco Use Types [...] Department Care Team (Late Contact Info) Description 12/30/2025 9:00 AM EDT Ancillary Procedure [facility] Medicine Specialties [address] [place] [address] 12/30/2025 10:30 AM EDT Office Visit [facility] Medicine Specialties [address], [address] [place] [address] Kamini Fu, DO [address] [place] [address] 12/30/2025 11:20 AM EDT Office Visit [facility] Medicine Specialties [address], [address] [place] [address] Bridget Bhat, DO [address] [place] [address] documented as of this encounter [...] documented as of this encounter Care Teams Power House Engineer Relationship Specialty Start Date End Date Kwame Solomon MD [facility] [address] [place] [address] PCP - General 01/19/21 12/18/23 Eben Liu MD [address] [place] [address] [address] [place] [address] PCP - General Internal Medicine 12/19/23 documented as of this encounter
--- OUTSIDE RECORDS SUMMARY | 2025-07-28 10:21 | XMS_ITS | Encounter Summary ---
Author Organization Healthcare Address [address] [place] [address] Care Team Providers Care Material Checker Name Role Phone Eben Liu MD Primary Care Provider [phone] Encounter Details Date Type Department Care Team (Late st Contact Info) Description 12/25/2023 Orders Only External Location [address] [place] [address] Provider, External Social History Tobacco Use Types [...] Description 12/30/2025 9:00 AM EDT Ancillary Procedure [facility] Medicine Specialties [address], [address] [place] [address] 12/30/2025 10:30 AM EDT Office Visit [facility] Medicine Specialties [address], [address] [place] [address] CamKamini santana R, DO [address] [place] [address] 12/30/2025 11:20 AM EDT Office Visit [facility] Medicine Specialties [address], [address] [place] [address] Bridget Bhat, DO [address] [place] [address] documented as of this encounter Procedures Procedure Name Priority Date/Time Associated Diagnosis Comments CT MSK OUTSIDE IMAGES 12/25/2023 8:31 AM EDT documented in this encounter Results * CT MSK OUTSIDE IMAGES (12/25/2023 8:31 AM EDT) Anatomical Region Laterality Modality Computed Tomogra phy 12/25/2023 8:31 AM EDT us External Provider IMG CT [...] documented as of this encounter Care Teams Material Checker Relationship Specialty Start Date End Date Eben Liu MD [address] [place], [place] [address] PCP - General Internal Medicine 12/19/23 documented as of this encounter
--- OUTSIDE RECORDS SUMMARY | 2025-07-28 10:21 | XMS_ITS | Encounter Summary ---
Author Organization Healthcare Address [address] [place] [address] Care Team Providers Care Rough And Truing Machine Operator Name Role Phone Eben Liu MD Primary Care Provider [phone] Encounter Details Date Type Department Care Team (Late st Contact Info) Description 06/02/2025 Telephone [facility] [address], [address] [place] [address] Bridget Bhat DO [address] [place] [address] Social History Tobacco Use Types [...] Description 12/30/2025 9:00 AM EDT Ancillary Procedure [facility] Medicine Specialties [address], [address] [place] [address] 12/30/2025 10:30 AM EDT Office Visit [facility] Specialties [address], [address] [place] [address] CamacKamini R, DO [address] [place] [phone] 12/30/2025 11:20 AM EDT Office Visit [facility] Specialties [address], [address] [place] [address] Bridget Bhat, DO [address] [place] [address] documented as of this encounter Visit Diagnoses Not on filedocumented in this encounter Additional Health Concerns Assessment Noted Time A fall risk assessment has been complete d for the patient 03/18/2025 9:35 AM EDT A Body Mass Index follow-up plan has been documented for the patient 03/18/2025 10:34 AM EDT documented as of this encounter Care Teams Rough And Truing Machine Operator Relationship Specialty Start Date End Date Eben Liu MD [address] [place] [address] PCP - General Internal Medicine 12/19/23 documented as of this encounter
--- OUTSIDE RECORDS SUMMARY | 2025-07-28 10:22 | XMS_ITS | Clinical Summary ---
Author Organization [facility] Address [address] [place] [address] Care Team Providers Care Wetland Scientist Name Role Phone Eben Liu MD Primary Care Provider [phone] Allergies Active Allergy Reactions Criticality Noted Date Comments Leflunomide Unknown - Patient st ates they do not know rxn details Low 10/13/2015 Penicillins Unknown - Patient st ates they do not know rxn details,Anaphylaxis High 10/13/2015 As a child at 1 years old Sulfa Drugs Rash,Angioedema,Itching High 03/22/2021 Medications albuterol 108 (90 Base) MCG/ACT inhaler Inhale 2 puffs as needed. 07/20/20 15 Active metoprolol succinate XL (Toprol-XL) 25 MG [...] skin 1 (one) time per week. Active Budeson-Glycopy rrol-Formoterol (Breztri Aerosphere) 160-9-4.8 MCG/ACT [...] day before meals. 360 tablet 3 09/15/19 Active ticagrelor (Brilinta) 90 MG tablet Take 1 tablet by mouth 2 times a day. Active riTUXimab (Rituxan) 500 MG/50ML chemo injectionIndica tions:Seroposit olga rheumatoid arthritis of multiple sites (CMS/HCC) Infuse 100 mL (1000mg) intravenously on day 1 and day 15 every 4 months. 200 mL 2 06/08/20 Active atorvastatin (Lipitor) 80 MG tablet Take 1 tablet by mouth daily. 07/25/20 Active doxycycline (Monodox) 100 MG capsule Take 1 capsule by mouth daily. 04/14/20 Active isosorbide mononitrate ER (Imdur) 30 MG 24 hr tablet Take 1 tablet by mouth every morning. 07/19/20 Active levoFLOXacin (Levaquin) 750 MG tablet Take 1 tablet by mouth daily. 07/25/20 Active loratadine (Claritin) 10 MG tablet Take 1 tablet by mouth daily. 06/01/20 Active predniSONE (Deltasone) 20 MG tablet Take 1 tablet by mouth daily. 07/25/20 Active Nintedanib Esylate (Ofev) 150 MG capsuleIndicati ons:Pulmonary fibrosis Take 150 mg by mouth 2 times a day. 60 capsule 11 07/27/20 Active Additional Information Patient not taking.Reported on 07/27/2025 atorvastatin (Lipitor) 40 MG tablet Take 1 tablet (40 mg) by mouth daily. 12/22/19 21 025 Discontinu ed(Per Patient Report) isosorbide mononitrate ER (Imdur) 60 MG 24 hr tablet Take 1 tablet (60 mg) by mouth daily. 09/16/19 25 025 Discontinu ed(Per Patient Report) Active Problems Problem Noted Date Diagnosed Date Anemia 06/23/2024 CAD (coronary artery disease) 06/23/2024 HLD (hyperlipidemia) 06/23/2024 Dyspnea 06/23/2024 Leukocytosis 06/23/2024 Asthma 06/23/2024 HTN (hypertension) 06/23/2024 Pleuritic chest pain 06/23/2024 Acute and chronic respiratory failure with hypox ia 10/01/2023 COPD (chronic obstructive pulmonary disease) Carotid artery stenosis 07/02/2023 Morbid obesity with body mass index (BMI) of 40. 0 or higher 04/03/2022 ANDRES (obstructive sleep apnea) 04/20/2019 Neck pain 10/03/2016 Transaminitis 07/04/2016 Aortic ejection murmur 11/13/2015 ILD (interstitial lung disease) 10/30/2015 Rheumatoid arthritis 10/13/2015 Lung nodule 10/13/2015 Type 2 diabetes mellitus 10/13/2015 Resolved Problems Problem Noted Date Diagnosed Date Resolved Date Sinusitis 06/23/2024 05/29/2025 UTI (urinary tract infection) 06/23/2024 05/29/2025 Osteoarthritis 03/23/2021 05/29/2025 Encounters Date Type Department Care Team Description 07/28/2025 Telephone [facility]ties [address], [address] [place] [phone] Bridget Bhat DO 07/27/2025 11:15 AM EST Office Visit [facility] [address], [address] [place] [phone] Bridget Bhat DO Rheumatoid arthritis involving multiple sites with positive rheumatoid factor ([facility]) (Primary Dx); Seropositive rheumatoid arthritis of multiple sites ([facility]); High risk medication use; ILD (interstitial lung disease) ([facility]); Cerebrovascular accident (CVA), unspecified mechanism ([facility]/HCC) 07/27/2025 9:00 AM EST Office Visit [facility] [address], [address] [place] [phone] Kamini Fu DO Chronic hypoxemic respiratory failure (Primary Dx); Interstitial lung disease due to connective tissue disease ([facility]/HCC); High risk medication use; ANDRES (obstructive sleep apnea); Rheumatoid arthritis involving multiple sites with positive rheumatoid factor ([facility]); Bronchiectasis with acute lower respiratory infection; Pulmonary fibrosis 07/27/2025 Orders Only [facility] [address], [address] [place] [phone] Marley Brown MD Neutropenia, unspecified type ([facility]) (Primary Dx) 07/27/2025 Telephone [facility] [address] [place] [address] Jazzy Lui, senior product marketing manager 07/27/2025 Orders Only [facility] [address], [address] [place] [phone] Elroy Rosenthal MD ILD (interstitial lung disease) ([facility]) (Primary Dx); Dyspnea, unspecified 07/27/2025 Travel 07/23/2025 Orders Only External Location [address] [place] [address] Provider, External 07/23/2025 Orders Only External Location [address] [place] [address] Provider, External 07/06/2025 Orders Only [facility] [address], [address] [place] [phone] Bridget Bhat DO ILD (interstitial lung disease) ([facility]) (Primary Dx); Rheumatoid arthritis involving multiple sites with positive rheumatoid factor ([facility]) 06/20/2025 Orders Only [facility], [address] [place] [phone] Provider, Historical 06/08/2025 Telephone [facility] [address] [place] [address] Ananya Rubio, PharmD 06/02/2025 Telephone [facility] Specialties [facility], [address] [place] [phone] Bridget Bhat DO from Last 3 Months Immunizations Immunization Administration Dates Next Due Influenza, High-dose, Split Virus, Trivalent, Injectable, preservative free 06/01/2025,06/23/2024,10/14/2018 Influenza, high-dose, quadrivalent 10/14/2018 Influenza, injectable, quadrivalent 05/07/2017 Influenza, injectable, quadr ivalent, preservative free 07/02/2023,07/08/2019 Influenza, recombinant, quad rivalent, injectable, preservative free 07/14/[address] [employer] COVID-19 Vac cine (Jack Cap) 12+ years (jamee-sucrose) 04/03/2022 Pneumococcal 20-harley Conj Vaccine 10/04/2022 Pneumococcal Conjugate PCV 13 07/09/2017 Rsvpref, Recombinant, Protei n Subunit, Adjuvent 07/21/2024 Tdap 05/29/2018 Zoster, Recombinant [...] Mass Index 33.43 07/27/2025 11:39 AM EST Plan of Treatment Upcoming Encounters Date Type Department Care Team (Late st Contact Info) Description 12/30/2025 9:00 AM EDT Ancillary Procedure [facility] [address] [place] [address] 12/30/2025 10:30 AM EDT Office Visit [facility] [address], [address] [place] [address] CamKamini santana, DO [address] [place] [address] 12/30/2025 11:20 AM EDT Office Visit [facility] [address], [address] [place] [address] Bridget Bhat, DO [address] [place] [address] Health Maintenance Due Date Last Done Comments [facility]-Bone Density Scan 1958 [facility]-Medicare Annual Wellness (AWV) 1958 [facility]-/Child/Adol SDOH Screenings 1958 Diabetes: Dental Exam 1968 [facility]- SDOH Screenings 1976 [facility]-Adult SDOH Screenings 1976 CT Colonography 2003 Colonoscopy 2003 FIT-DNA 2003 FIT 2003 FOBT 2003 Sigmoidoscopy 2003 [facility]-Colorectal Cancer Screening 2003 [facility]-Breast Cancer Screening 2008 [id number] Vaccine (2 - Pfizer risk series) 04/24/2022 04/03/2022 [facility]-Diabetes: Hemoglobin A1C 07/12/2025 04/12/2025, 10/14/2018 [facility]-Depression Screening 07/27/2026 025, 07/27/2025, 04/03/2022 [facility]-DTaP,Tdap,and Td Vaccines (2 - Td or Tdap) 05/29/2028 05/29/2018 [facility]-Hepatitis C Screening Completed 05/10/2020 [facility]-Pneumococcal Vaccine: 50+ Years Completed 10/04/2022, 07/09/2017 [facility]-Zoster Vaccines Completed 03/01/2024, [facility]-RSV Vaccine: 60+ Years or Completed 07/21/2024 [facility]-Influenza Vaccine Completed 06/01/2025 , 06/23/2024, 07/02/2023, Additional history exists [facility]-Obesity Intervention Completed 025, 07/27/2025, 03/18/2025, Additional history exists HPV Vaccines Aged Out [...] Procedure Name Priority Date/Time Associated Diagnosis Comments MORPHOLOGY Routine 07/27/2025 12:43 PM EST Rheumatoid arthritis involving multiple sites with positive rheumatoid factor (CMS/HCC) Seropositive rheumatoid arthritis of multiple sites (CMS/HCC) High risk medication use ILD (interstitial lung disease) (CMS/HCC) MANUAL DIFFERENTIAL Routine 07/27/2025 1 2:43 PM EST Rheumatoid arthritis involving multiple sites with positive rheumatoid factor (CMS/HCC) Seropositive rheumatoid arthritis of multiple sites (CMS/HCC) High risk medication use ILD (interstitial lung disease) (CMS/HCC) N-TERMINAL PROBNP, PLASMA Routine 07/27/2025 12:43 PM EST ILD (interstitial lung disease) (CMS/HCC) Dyspnea, unspecified COMPREHENSIVE METABOLIC PANEL, PLASMA Routine 07/27/2025 12:43 PM EST Rheumatoid arthritis involving multiple sites with positive rheumatoid factor (CMS/HCC) Seropositive rheumatoid arthritis of multiple sites (CMS/HCC) High risk medication use ILD (interstitial lung disease) (CMS/HCC) CBC WITH AUTO DIFFERENTIAL Routine 07/27/2025 12:43 PM EST Rheumatoid arthritis involving multiple sites with positive rheumatoid factor (CMS/HCC) Seropositive rheumatoid arthritis of multiple sites (CMS/HCC) High risk medication use ILD (interstitial lung disease) (CMS/HCC) C-REACTIVE PROTEIN, PLASMA Routine 07/27/2025 12:43 PM EST Rheumatoid arthritis involving multiple sites with positive rheumatoid factor (CMS/HCC) Seropositive rheumatoid arthritis of multiple sites (CMS/HCC) High risk medication use ILD (interstitial lung disease) (CMS/HCC) SEDIMENTATION RATE, AUTOMATED Routine 07/27/2025 12:43 PM EST Rheumatoid arthritis involving multiple sites with positive rheumatoid factor (CMS/HCC) Seropositive rheumatoid arthritis of multiple sites (CMS/HCC) High risk medication use ILD (interstitial lung disease) (CMS/HCC) IG PROFILE Routine 07/27/2025 12:43 PM EST Rheumatoid arthritis involving multiple sites with positive rheumatoid factor (CMS/HCC) Seropositive rheumatoid arthritis of multiple sites (CMS/HCC) High risk medication use ILD (interstitial lung disease) (CMS/HCC) CT THORACIC OUTSIDE IMAGES 07/23/2025 10:17 AM EST XR OUTSIDE IMAGES 07/23/2025 9:0 5 AM EST CBC WITH MANUAL DIFFERENTIAL INCLUDING BANDS Routine 06/20/2025 8:51 AM EDT HEPATITIS C ANTIBODY W/REFLEX TO HCV QUANT PCR Routine 05/10/2020 12:33 PM EDT HEMOGLOBIN A1C Routine 10/14/2018 12:28 PM EST from Last 3 Months or Most Recently Relevant to Health Maintenance Results * Morphology (07/27/2025 12:43 PM EST) RBC Morphology RBC Morphology Consistent with Indices and RDW LAB HEMATOLOGY METHOD 07/27/2025 4:38 PM EST [facility] Platelet Estimate Platelet smear estimate consistent with automated count LAB HEMATOLOGY METHOD 07/27/2025 4:38 PM EST [facility] Blood Venous blood specimen / Unknown Venipuncture / Unknown 07/27/2025 12:43 PM EST 07/27/2025 12:43 PM EST us Bridget Antic DO LAB BLOOD ORDERABLES Final Resu lt [facility] [address] [place] [address] * (ABNORMAL) Manual Differential (07/27/2025 12:43 PM EST) Blasts % 0 % LAB HEMATOLOGY METHOD 07/27/2025 4:38 PM EST [facility] Promyelocytes % 0 % LAB HEMATOLOGY METHOD 07/27/2025 4:38 PM EST [facility] Myelocytes % 0 % LAB HEMATOLOGY METHOD 07/27/2025 4:38 PM EST [facility] Metamyelocytes % 1 % LAB HEMATOLOGY METHOD 07/27/2025 4:38 PM EST [facility] Neutrophils % 0 % LAB HEMATOLOGY METHOD 07/27/2025 4:38 PM EST [facility] Lymphocytes % 60 % LAB HEMATOLOGY METHOD 07/27/2025 4:38 PM EST [facility] Reactive Lymphocytes % 4 % LAB HEMATOLOGY METHOD 07/27/2025 4:38 PM EST [facility] Monocytes % 33 % LAB HEMATOLOGY METHOD 07/27/2025 4:38 PM EST [facility] Eosinophils % 1 % LAB HEMATOLOGY METHOD 07/27/2025 4:38 PM EST [facility] Basophils % 1 % LAB HEMATOLOGY METHOD 07/27/2025 4:38 PM EST [facility] Blasts Absolute LAB HEMATOLOGY METHOD 07/27/2025 4:38 PM EST [facility] Promyelocytes Absolute LAB HEMATOLOGY METHOD 07/27/2025 4:38 PM EST [facility] Myelocytes Absolute LAB HEMATOLOGY METHOD 07/27/2025 4:38 PM EST [facility] Metamyelocytes Absolute 0.06 10*3/uL LAB HEMATOLOGY METHOD 07/27/2025 4:38 PM EST [facility] Neutrophils Absolute 0.00(LL) 1.60 - 6.10 10*3/uL LAB HEMATOLOGY METHOD 07/27/2025 4:38 PM EST [facility] Lymphocytes Absolute 3.35 1.20 - 3.90 10*3/uL LAB HEMATOLOGY METHOD 07/27/2025 4:38 PM EST [facility] Reactive Lymphocytes Absolute 0.22 10*3/uL LAB HEMATOLOGY METHOD 07/27/2025 4:38 PM EST [facility] Monocytes Absolute 1.84(H) 0.30 - 0.90 10*3/uL LAB HEMATOLOGY METHOD 07/27/2025 4:38 PM EST [facility] Eosinophils Absolute 0.06 0.00 - 0.50 10*3/uL LAB HEMATOLOGY METHOD 07/27/2025 4:38 PM EST [facility] Basophils Absolute 0.06 0.00 - 0.10 10*3/uL LAB HEMATOLOGY METHOD 07/27/2025 4:38 PM EST [facility] Blood Venous blood specimen / Unknown Venipuncture / Unknown 07/27/2025 12:43 PM EST 07/27/2025 12:43 PM EST us Bridget Bhat DO LAB BLOOD ORDERABLES Final Resu lt Performing Organization Address City/State/[facility] Co de Phone Number [facility] [address] [place] [address] * (ABNORMAL) IG Profile (07/27/2025 12:43 PM [...] 12:43 PM EST 07/27/2025 12:43 PM EST Bridget Bhat DO LAB BLOOD ORDERABLES Final Resu lt Performing Organization Address [facility]/ZIP Co de Phone Number [facility] [address] [place] [address] * N-Terminal Probnp, Plasma (07/27/2025 12:43 PM EST) N-Terminal, PROBNP, Plasma 269 0 - 899 pg/mL 07/27/2025 3:12 PM EST [facility] Blood Venous blood specimen / Unknown Venipuncture / Unknown 07/27/2025 12:43 PM EST 07/27/2025 12:43 PM EST Elroy Rosenthal MD LAB BLOOD ORDERABLES Final R esult Performing Organization Address [facility] Co de Phone Number [facility] [address] [place] [address] * (ABNORMAL) Sedimentation Rate, Automated (07/27/2025 12:43 PM EST) Sedimentation Rate 53(H) <30 mm/hr 2024 2:52 PM EST [facility] Blood Venous blood specimen / Unknown Venipuncture / Unknown 07/27/2025 12:43 PM EST 07/27/2025 12:43 PM EST Bridget Bhat DO LAB BLOOD ORDERABLES Final Resu lt Performing Organization Address City/[facility]/ZIP Co de Phone Number [facility] [address] [place] [address] * (ABNORMAL) CBC and Differential (07/27/2025 12:43 [...] WBCs LAB HEMATOLOGY METHOD 07/27/2025 4:38 PM [facility] Differential Type Manual LAB HEMATOLOGY METHOD 07/27/2025 4:38 PM [facility] Blood Venous blood specimen / Unknown Venipuncture / Unknown 07/27/2025 12:43 PM EST 07/27/2025 12:[address] [facility] - 07/27/2025 4:38 PM EST Therapeutic [...] Immature Granulocytes is no longer being reported. [employer] LAB BLOOD ORDERABLES Final Resu lt Performing Organization Address [facility]/ZIP Co de Phone Number [facility] [address] [place] [address] * (ABNORMAL) C-Reactive Protein, Plasma (07/27/2025 12:43 [...] disease risk order high sensitivity CRP (CRPH). Boston Boot DO LAB BLOOD ORDERABLES Final Resu lt Performing Organization Address [facility] Co de Phone Number [facility] [address] [place] [address] * (ABNORMAL) Comprehensive Metabolic Panel, Plasma (07/27/2025 [...] Resu lt [facility] [address] [place] [address] * CT THORACIC OUTSIDE IMAGES (07/23/2025 10:17 AM EST) Anatomical Region Laterality Modality Computed Tomogra phy 07/23/2025 10:1 7 AM EST us External Provider IMG CT PROCEDURES Edited Resul t - Final * XR OUTSIDE IMAGES (07/23/2025 9:05 AM EST) Anatomical Region Laterality Modality Radiographic Anna ging 07/23/2025 9:05 AM EST us External Provider IMG XR PROCEDURES Edited Resul t - Final * CBC with Manual Differential Including Bands (06/20/2025 8:51 AM EDT) Blood Venous blood specimen / Unknown Historical Provider LAB BLOOD ORDERABLES Edited Result - Final * Hepatitis C Antibody (05/10/2020 12:33 PM EDT) Hepatitis C Antibody NEGATIVE Reference Range: Negative [employer] 05/10/2020 12:3 3 PM EDT 05/10/2020 1:20 PM EDT Jessica Lee DO LAB BLOOD ORDERABLES Final [...] <6.0% Children and Adolescents <7.5% . Source: [place] [employer]. Standards of medical care in [...] Health Maintenance Insurance MEDICARE MEDICARE Care Teams Wetland Scientist Relationship Specialty Start Date End Date Eben Liu MD [address] [place] [address] PCP - General Internal Medicine 12/19/23
--- OUTSIDE RECORDS SUMMARY | 2025-07-28 10:22 | XMS_ITS | Encounter Summary ---
Author Organization Healthcare Address [address] [place] [address] Care Team Providers Care Criminal Attorney Name Role Phone Eben Liu MD Primary Care Provider [phone] Encounter Details Date Type Department Care Team (Late st Contact Info) Description 06/20/[address] [facility] Medicine Specialties [address] [place] [phone] Provider, [place] [phone] Social History Tobacco Use Types Packs/Day Years [...] Description 12/30/2025 9:00 AM EDT Ancillary Procedure [facility]ties [address], [address] [place] [address] 12/30/2025 10:30 AM EDT Office Visit [facility] [address], [address] [place] [address] CamacKamini R, DO [address] [place] [address] 12/30/2025 11:20 AM EDT Office Visit [facility] [address], [address] [place] [address] Bridget Bhat, DO [address] [place] [phone] documented as of this encounter Procedures Procedure Name Priority Date/Time Associated Diagnosis Comments CBC WITH MANUAL DIFFERENTIAL INCLUDING BANDS Routine 06/20/2025 8:51 AM EDT documented in this encounter Results * CBC with Manual Differential Including Bands (06/20/2025 8:51 AM EDT) Blood Venous blood specimen / Unknown us Historical Provider LAB BLOOD ORDERABLES Edited Result - Final documented in this encounter Visit Diagnoses Not on filedocumented in this encounter Additional Health Concerns Assessment Noted Time A fall risk assessment has been complete d for the patient 03/18/2025 9:35 AM EDT A Body Mass Index follow-up plan has been documented for the patient 03/18/2025 10:34 AM EDT documented as of this encounter Care Teams Criminal Attorney Relationship Specialty Start Date End Date Eben Liu MD [address] [place] [address] PCP - General Internal Medicine 12/19/23 documented as of this encounter
--- OUTSIDE RECORDS SUMMARY | 2025-07-28 10:22 | XMS_ITS | Encounter Summary ---
Author Organization [facility] Address [address] [place] [address] Care Team Providers Care Stacker And Sorter Operator Name Role Phone Eben Liu MD Primary Care Provider [phone] Encounter Details Date Type Department Care Team (Latest Contact Info) Description 06/27/2025 Travel Social History Tobacco Use Types Packs/Day Years Used Date Smoking Tobacco: Former Cigarettes 2 24 1 978 - 2001 Passive Smoke Exposure: Past Smokeless Tobacco: Never Alcohol Use Standard Drinks/Week [...] documented as of this encounter Functional Status documented as of this encounter Plan of Treatment Upcoming Encounters Date Type Department Care Team (Late st Contact Info) Description 09/27/2025 11:30 AM EST Office Visit [facility] [address] [facility] [address] [place] [address] Margarita Blanc, BACK UP WORKER [address] [facility] [address] [address] documented as of this encounter Visit Diagnoses Not on filedocumented in this encounter Care Teams Stacker And Sorter Operator Relationship Specialty Start Date End Date Eben Liu MD [address] [facility] [address] [place] [address] PCP - General Adolescent Medicine 04/12/25 documented as of this encounter
--- OUTSIDE RECORDS SUMMARY | 2025-07-28 10:22 | XMS_ITS | Clinical Summary ---
Author Organization [facility] Address [address] [place] [address] Care Team Providers Care Story Writer Name Role Phone Eben Liu MD Primary Care Provider [phone] Allergies Active Allergy Reactions Criticality Noted Date [...] (Three) Times a Day Before Meals. Active insulin glargine (LANTUS, SEMGLEE) 100 UNIT/ML injection Inject 50 Units under the skin into the appropriate area as directed Every Night. Active metoprolol succinate XL (TOPROL-XL) 25 MG 24 hr tablet Take 1 tablet by mouth Daily. Active albuterol (PROVENTIL) (2.5 MG/3ML) 0.083% nebulizer solution Take 2.5 mg by nebulization Every 6 (Six) Hours As Needed for Wheezing. Active albuterol sulfate HFA 108 (90 Base) MCG/ACT inhaler Inhale 2 puffs Every 4 (Four) Hours As Needed for Wheezing. Active acetaminophen (TYLENOL) 325 MG tablet Take 2 tablets by mouth Every 4 (Four) Hours As Needed for Mild Pain. 04/14/20 25 Active ticagrelor (BRILINTA) 90 MG tablet tablet Take 1 tablet by mouth 2 (Two) Times a Day. 60 tablet 04/14/20 25 Active polyethylene glycol (MIRALAX) 17 g packet Take 17 g by mouth Daily As Needed (Use if senna-docusate is ineffective). 04/14/20 25 Active mycophenolate (MYFORTIC) 360 MG tablet delayed-release EC tablet 1 tablet. 06/14/20 25 Active loratadine (CLARITIN) 10 MG tablet Take 1 tablet by mouth Daily. 06/01/20 25 Active isosorbide mononitrate (IMDUR) 30 MG 24 hr tablet Take 1 tablet by mouth Every Morning. 06/18/20 25 Active Mounjaro 15 MG/0.5ML solution auto-injector INJECT 1 PEN-INJECTOR SUBCUTANEOUSLY ONCE A WEEK 05/09/20 Active riTUXimab (Rituxan) 500 MG/50ML solution injection Infuse 100 mL (1000mg) intravenously on day 1 and day 15 every 4 months. 06/08/20 25 Active Breztri Aerosphere 160-9-4.8 MCG/ACT aerosol inhaler 06/14/20 25 Active atorvastatin (LIPITOR) 80 MG tabletIndications: Hyperlipidemia, unspecified hyperlipidemia type Take 1 tablet by mouth Every Night. 30 tablet 3 06/27/20 Active Active Problems Problem Noted Date Diagnosed Date History of stroke 04/13/2025 Transient neurological symptoms 04/13/2025 Chronic respiratory failure with hypoxia 025 Primary hypertension 04/12/2025 Type 2 diabetes mellitus, wi th long-term current use of insulin 04/12/2025 Resolved Problems Problem Noted Date Diagnosed Date Resolved Date Stroke 04/12/2025 04/13/2025 Encounters Date Type Department Care Team Description 06/28/2025 Patient rounding ([facility]) [facility] [address] [place] [address] Rufina Morataya RegSched Rep 06/27/2025 11:00 AM EDT Office Visit [facility] [address] [place] [address] Margarita Blanc, ROGER History of TIA (transient ischemic attack) (Primary Dx); Hyperlipidemia, unspecified hyperlipidemia type; Primary hypertension; Type 2 diabetes mellitus with hyperglycemia, with long-term current use of insulin; History of stroke; ANDRES (obstructive sleep apnea) 06/27/2025 Travel from Last 3 Months Social History [...] F) 06/27/2025 10:36 AM EDT Respiratory Rate 16 04/14/2025 12:30 PM EDT Oxygen Saturation 100% 06/27/2025 10:36 AM EDT Inhaled Oxygen Concentration - - Weight 84.4 kg (186 lb) 06/27/2025 10:36 AM EDT Height 160 cm (5' 2.99 ) 06/27/2025 10:36 AM EDT Body Mass Index 32.96 06/27/2025 10:36 AM EDT Plan of Treatment Upcoming Encounters Date Type Department Care Team (Late st Contact Info) Description 09/27/2025 11:30 AM EST Office Visit [facility] [address] [facility] [address] [place], [place] [id number] Margarita Blanc, PRODUCT MARKETING ENGINEER [address] [facility] [address] [place] [address] Health Maintenance Due Date Last Done Comments DXA SCAN 1960 DIABETIC EYE EXAM 1968 DIABETIC FOOT EXAM 1968 URINE MICROALBUMIN-CREATININ E RATIO (uACR) 1968 MAMMOGRAM 1998 COLOGUARD 2003 COLON CANCER SCREENING 5 YEA R SIGMOIDOSCOPY 2003 COLONOSCOPY 2003 COLORECTAL CANCER SCREENING 2003 CT COLONOGRAPHY 2003 FECAL OCCULT BLOOD TEST 2003 FIT Testing (1 year) 2003 COVID-19 Vaccine (2 - Pfizer risk series) 04/24/2022 04/03/2022 ANNUAL WELLNESS VISIT 04/13/2025 HEMOGLOBIN A1C 10/13/2025 04/12/2025, 10/14/2018 LIPID PANEL 04/12/2026 04/12/2025 TDAP/TD VACCINES (2 - Td or Tdap) 05/29/2028 018 HEPATITIS C SCREENING Completed 05/10/2020 Pneumococcal Vaccine 50+ Completed 10/04/2022, 11/0 09/2016 ZOSTER VACCINE Completed 03/01/2024, 01/03/2023 INFLUENZA VACCINE Completed 06/01/2025, , 07/02/2023, Additional history exists Procedures Procedure Name Priority Date/Time Associated Diagnosis Comments HEMOGLOBIN A1C Urgent 04/12/2025 4:54 AM EDT LIPID PANEL Urgent 04/12/2025 4:54 AM EDT from Last 3 Months or Most Recently Relevant to Health Maintenance Results * (ABNORMAL) Hemoglobin A1c (04/12/2025 4:54 AM EDT) Hemoglobin A1C 7.57(H) 4.80 - 5.60 % 04/12/2025 6:00 AM EDT [facility] Blood Venipuncture / Unknown 04/12/2025 4:54 AM EDT 04/12/2025 5:05 AM EDT [facility] - 04/12/2025 6:00 AM EDT Hemoglobin A1C Ranges: Increased Risk for Diabetes 5.7% to 6.4% Diabetes >= 6.5% Diabetic Goal < 7.0% May Arnoldo PRODUCT MARKETING ENGINEER LAB BLOOD ORDERABLES Fi nal Result [facility]
[address] [place] [address], * Lipid Panel (04/12/2025 4:54 AM EDT) Total Cholesterol 159 0 - 200 mg/dL 04/12/2025 5:31 AM EDT [facility] Triglycerides 55 0 - 150 mg/dL 04/12/2025 5:31 AM EDT [facility] HDL Cholesterol 48 40 - 60 mg/dL 04/12/2025 5:31 AM EDT [facility] LDL Cholesterol 100 0 - 100 mg/dL 04/12/2025 5:31 AM EDT [facility] VLDL Cholesterol 11 5 - 40 mg/dL 04/12/2025 5:31 AM EDT [facility] LDL/HDL Ratio 2.08 04/12/2025 5:31 AM EDT [facility] Blood Venipuncture / Unknown 04/12/2025 4:54 AM EDT 04/12/2025 5:05 AM EDT [facility] - 04/12/2025 5:31 AM EDT Cholesterol [...] calculated using the NIH LDL-C calculation. us January Arnoldo DURAN LAB BLOOD ORDERABLES nal Result [facility]
[address] [place] [address], from Last 3 Months or Most Recently Relevant to Health Maintenance Insurance MEDICARE A & B Advance Directives [...] Of Support Discussed With: Patient Care Teams Story Writer Relationship Specialty Start Date End Date Eben Liu MD [facility] [address] [address] PCP - General Adolescent Medicine 04/12/25
--- OUTSIDE RECORDS SUMMARY | 2025-07-28 10:22 | XMS_ITS | Encounter Summary ---
Author Organization Healthcare Address [address] [place] [address] Care Team Providers Care Public Health Internship Name Role Phone Eben Liu MD Primary Care Provider [phone] Encounter Details Date Type Department Care Team (Late st Contact Info) Description 07/06/2025 Orders Only [facility] [address] [place] [address] Bridget Bhat DO [address] [place] [address] ILD (interstitial lung disease) (CMS/HCC) (Primary Dx); Rheumatoid arthritis involving multiple sites with positive rheumatoid factor (CMS/HCC) Social History Tobacco Use Types Packs/Day [...] [facility] [address] [place] [address] 12/30/2025 10:30 AM EDT Office Visit [facility] [address] [place] [address] Kamini Fu, DO [address] [place] [address] 12/30/2025 11:20 AM EDT Office Visit [facility] [address] [place] [address] Bridget Bhat, DO [address] [place] [address] documented as of this encounter Visit Diagnoses Diagnosis ILD (interstitial [...] documented as of this encounter Care Teams Public Health Internship Relationship Specialty Start Date End Date Eben Liu MD [address] [place] [address] PCP - General Internal Medicine 12/19/23 documented as of this encounter
--- OUTSIDE RECORDS SUMMARY | 2025-07-28 10:22 | XMS_ITS | Encounter Summary ---
Author Organization [facility] Address [address] [place] [address] Care Team Providers Care Retread Operator Name Role Phone Eben Liu MD Primary Care Provider [phone] Encounter Details Date Type Department Care Team (Late st Contact Info) Description 06/28/2025 Patient rounding ([facility]) [facility] [address] [facility] [address] [address] [place] [address] Rufina Morataya RegSched Rep Social History Tobacco Use Types Packs/Day Years [...] on file documented as of this encounter Progress Notes * Rufina Morataya RegSched Rep - 06/28/2025 3:51 PM EDT June 28, 2025 Nancy, may I speak with Karyn Gonzales Yvon? My name is Rufina I am with [facility] [address] [address] . Before we get started january I verify your date of ? 1960 I am calling to officially welcome you to our practice and ask about your recent visit. Is this a good time to talk? yes Tell me about your visit with us. What things went well? Answered all questions and had a wonderfulexperience with the department and provider. We're always looking for ways to make our patients' experiences even better. Do you have recommendations on ways we may improve? yes. Parking. Overall were you satisfied with your first visit to our practice? yes I appreciate you taking the time to speak with me today. Is there anything else I can do for you? no Thank you, and have a great day. documented in this encounter Plan of Treatment Upcoming Encounters Date Type Department Care Team (Late st Contact Info) Description 09/27/2025 11:30 AM EST Office Visit [facility] [address] [facility] [address] [place], [place] [id number] Margarita Blanc APRN [address] [facility] [address] [address] documented as of this encounter Visit Diagnoses Not on filedocumented in this encounter Care Teams Retread Operator Relationship Specialty Start Date End Date Eben Liu MD [address] [place] [facility] [address] [facility] [address] [facility] [address] PCP - General Adolescent Medicine 04/12/25 documented as of this encounter
--- NOTE | 2025-07-28 10:26 | PC.NURSE ---
DR CABRAL SPEAKING WITH DR MCCARTHY PT'S CHILD PROTECTION SPECIALIST
[2025-07-28 10:27] LABS: Total Cells Counted 100
[2025-07-28 10:28] LABS: Hypochromasia 1+
[2025-07-28 10:53] VITALS: BP 128/68; PULSE 87; RESP 20; TEMP 36.8; O2SAT 98
== END 2025-07-28 11:05 | disposition home or self-care (01) ==
PROVIDERS: Emergency Provider Student in an Organized Health Care Education/Training Program; PCP Internal Medicine Adolescent Medicine
DX: D72.818 Other decreased white blood cell count (principal); J84.9 Interstitial pulmonary disease, unspecified; M06.9 Rheumatoid arthritis, unspecified; E11.9 Type 2 diabetes mellitus without complications; I10 Essential (primary) hypertension; E78.5 Hyperlipidemia, unspecified; Z86.79 Personal history of other diseases of the circulatory system; Z86.73 Personal history of transient ischemic attack (TIA), and cerebral infarction without residual deficits; Z79.02 Long term (current) use of antithrombotics/antiplatelets; Z87.891 Personal history of nicotine dependence; Z79.4 Long term (current) use of insulin
CPT/HCPCS: 80053; 81001; 83735; 84100; 85007; 85025; 85610; 85730; 99284

== ENCOUNTER 2025-08-01 10:18 | Outpatient (CLI) | payer MEDICARE, SELFPAY ==
--- OUTSIDE RECORDS SUMMARY | 2025-06-27 10:00 | XMS_ITS | Encounter Summary ---
Author Organization [facility] Address [address] [place] [address] Care Team Providers Care Iron Guardrail Installer Name Role Phone Eben Liu MD Primary Care Provider [phone] Reason for Visit * Reason Comments Establish Care * Consultation (Routine) - Closed Specialty Diagnoses / Procedures Referred By Contac t Referred To Contact Neurology Diagnoses CVA (cerebral vascular accident) Lele Rothman MD [address] [facility] [address] [place] [address] Phone: tel: fax: Margarita Blanc APRN [address] [place] [address] Phone: tel: fax: Referral ID Status Reason Start Date Expiration Date Visits Re quested Visits Authorized [id number] Closed 04/14/2025 07/14/2026 1 1 Encounter Details Date Type Department Care Team (Late st Contact Info) Description 06/27/2025 11:00 AM EDT Office Visit [facility] [address] [facility] [address] [place] [address] Margarita Blanc, ROGER [address] [place] [address] History of TIA (transient ischemic attack) (Primary Dx); Hyperlipidemia, unspecified hyperlipidemia type; Primary hypertension; Type 2 diabetes mellitus with hyperglycemia, with long-term current use of insulin; History of stroke; ANDRES (obstructive sleep apnea) Social History Tobacco Use Types Packs/Day Years Used Date Smoking Tobacco: Former Cigarettes 2 24 1 978 - 2001 Passive Smoke Exposure: Past Smokeless Tobacco: Never Tobacco Cessation:Counseling Given: No Alcohol Use Standard Drinks/Week Comments Never 0 [...] 04/12/2025 Difficulty Managing Errands Independently no 04/12/2025 PHQ-2 Answer Date Recorded Patient Health Questionnaire-2 Score 0 06/27/2025 Comments No Sex and Gender Information Value Date Recorded Sex Assigned at Not on file Legal Sex Female 7:39 PM EDT Gender Identity Not on file Sexual Orientation Not on file documented as of this encounter Last Filed Vital Signs Vital Sign Reading Time Taken Comments Blood Pressure 112/78 06/27/2025 10:36 AM EDT Pulse 87 06/27/2025 10:36 AM EDT Temperature 36.8 C (98.2 F) 06/27/2025 10:36 AM EDT Respiratory Rate - - Oxygen Saturation 100% 06/27/2025 10:36 AM EDT Inhaled Oxygen Concentration - - Weight 84.4 kg (186 lb) 06/27/2025 10:36 AM EDT Height 160 cm (5' 2.99 ) 06/27/2025 10:36 AM EDT Body Mass Index 32.96 06/27/2025 10:36 AM EDT documented in this encounter Functional Status documented as of this encounter Patient Instructions * Patient Instructions* Margarita Blanc APRN - 06/27/2025 11:00 AM EDT -Continue Brilinta 90 mg twice daily -Stop aspirin 81 mg as per recommendations made by neurologist in the hospital -Continue Lipitor 80 mg nightly -BP goal 110-140/60-80 -Heart healthy diet -Fall precautions documented in this encounter Progress Notes * Margarita Blanc APRN - 06/27/2025 11:00 AM EDT New Patient Office Visit Encounter Date: 06/27/2025 Patient Name: Karyn Sanz : 1960 PCP: Eben Liu MD Referring Provider: Lele Rothman MD Chief Complaint: Recent TIA. Old stroke found on MRI History of Present Illness: Karyn Sanz is a 64 y.o. female who is here today to establish care. Patient has prior medical history of HTN, HLD, interstitial lung disease on 2 L nasal cannula, CAD, RA, COPD, T2DM. She presented to [facility] ED on 04/11/25 for presyncopal event and then b ecame dizzy and had a left sided headache with left blurry vision. They treated her with migraine cocktail, vision somewhat improved. CT head revealed no acute intracranial normality. 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 She is noted to have a white blood cell count of 17,000. Patient was not a candidate for IV thrombolytic therapy or mechanical thrombectomy in the setting of no focality and suspicion of migraine complex, however in the setting of multifocal intracranial stenosis and occlusion of posterior circulation, patient was accepted to our facility for full stroke workup and higher level of care. MRI was completed and ultimately negative for acute ischemic stroke but did reveal a chronic left thalamic infarct that was unknown to the patient. She was recommended to complete 21 days of dual antiplatelet therapy. She was found to be a Plavix nonresponder. Patient was placed on aspirin and Brilinta with the plan to continue Brilinta monotherapy after 21 days. Patient presents to clinic alone. She is walking unassisted but does have an oxygen tank. On arrival she is using 4 L nasal cannula but after some rest it is reduced to 2 L. She uses chronic oxygen due to interstitial lung disease. The patient denies any new neurologic or strokelike symptoms since her discharge from the hospital. She does report 2 falls but they were mechanical in nature. Patienthas been taking her medications without issues or side effects. We reviewed her above workup. Reviewed with the patient her vascular risk factors including high cholesterol and diabetes. Her current A1c is 7.5 and she is working on getting this under 7. Stroke Risk Factors: carotid stenosis, diabetes mellitus, hyperlipidemia, hypertension, and smoking Subjective Review of Systems: Review of Systems Constitutional: Positive for activity change and fatigue. Negative for appetite change, chills, diaphoresis, fever, unexpected weight gain and unexpected weight loss. HENT: Negative for trouble swallowing. Eyes: Negative for photophobia and visual disturbance. Respiratory: Positive for shortness of breath. Negative for cough. Cardiovascular: Negative for chest pain, palpitations and leg swelling. Gastrointestinal: Negative for nausea and vomiting. Musculoskeletal: Negative for gait problem. Neurological: Negative for dizziness, tremors, seizures, syncope, facial asymmetry, speech difficulty, weakness, light-headedness, numbness, headache, memory problem and confusion. Psychiatric/Behavioral: Negative for depressed mood. Past Medical History: Past Medical History: Diagnosis Date Arthritis Asthma COPD (chronic obstructive pulmonary disease) Diabetes mellitus Hyperlipidemia Hypertension Interstitial lung disease with RH factor Murmur Osteoarthritis Rheumatoid arthritis Sleep apnea Smoker Past Surgical History: Past Surgical History: Procedure Laterality Date APPENDECTOMY CARDIAC CATHETERIZATION HYSTERECTOMY TUBAL ABDOMINAL LIGATION Bilateral Family History: No family history on file. Social History: Social History[1] Medications: Current Medications[2] Allergies: Allergies[3] Objective Physical Exam: Vital Signs: Vitals: 06/27/25 1036 BP: 112/78 Pulse: 87 Temp: 98.2 ??F (36.8 ??C) SpO2: 100% Weight: 84.4 kg (186 lb) Height: 160 cm (62.99 ) Body mass index is 32.96 kg/m??. Physical Exam Vitals and nursing note reviewed. Constitutional: General: She is awake. She is not in acute distress. Appearance: Normal appearance. She is normal weight. She is not ill-appearing. HENT: Head: Normocephalic and atraumatic. Nose: Nose normal. Mouth/Throat: Mouth: Mucous membranes are moist. Eyes: General: Lids are normal. Extraocular Movements: Extraocular movements intact. Pupils: Pupils are equal, round, and reactive to light. Cardiovascular: Rate and Rhythm: Normal rate and regular rhythm. Pulses: Normal pulses. Pulmonary: Effort: Pulmonary effort is normal. No respiratory distress. Skin: General: Skin is warm and dry. Neurological: General: No focal deficit present. Mental Status: She is alert and oriented to person, place, and time. Mental status is at baseline. Cranial Nerves: No cranial nerve deficit. Sensory: No sensory deficit. Motor: Motor strength is normal.No weakness. Coordination: Coordination normal. Gait: Gait normal. Psychiatric: Mood and Affect: Mood normal. Speech: Speech normal. Behavior: Behavior normal. Neurological Exam Mental Status Awake and alert. Speech is normal. Language is fluent with no aphasia. Attention and concentration are normal. Fund of knowledge is appropriate for level of education. Cranial Nerves CN II: Right visual acuity: Counts fingers. Left visual acuity: Counts fingers. Visual scott full to confrontation. CN III, IV, : Extraocular movements intact bilaterally. Normal lids and orbits bilaterally. Pupils equal round and reactive to light bilaterally. CN V: Facial sensation is normal. CN VII: Full and symmetric facial movement. CN VIII: Hearing is normal to speech . CN XI: Shoulder shrug strength is normal. CN XII: Tongue midline without atrophy or fasciculations. Motor Normal muscle bulk throughout. No fasciculations present. Normal muscle tone. Strength is 5/5 throughout all four extremities. Sensory Light touch is normal in upper and lower extremities. Pinprick is normal in upper and lower extremities. Coordination Right: Owizrc-lh-nuem normal.Left: Taovfp-os-sgpc normal. No obvious dysmetria . Gait Normal gait.Casual gait is normal including stance, stride, and arm swing. Modified [place] Score: 2 0 No Symptoms 1 No significant disability. Able to carry out all usual activities, despite some symptoms. 2 Slight disability. Able to look after own affairs without assistance, but unable to carry out allprevious activities. 3 Moderate disability. Requires some help, but able to walk unassisted. 4 Moderately severe disability. Unable to attend to own bodily needs without assistance, and unableto walk unassisted. 5 Severe disability. Requires constant nursing care and attention, bedridden, incontinent. 6 PHQ-9 Depression Screening Little interest or pleasure in doing things? Not at all Feeling down, depressed, or hopeless? Not at all PHQ-2 Total Score 0 Trouble falling or staying asleep, or sleeping too much? Feeling tired or having little energy? Poor appetite or overeating? Feeling bad about yourself - or that you are a failure or have let yourself or your family down? Trouble concentrating on things, such as reading the newspaper or watching television? Moving or speaking so slowly that other people could have noticed? Or the opposite - being so fidgety or restless that you have been moving around a lot more than usual? Thoughts that you would be better off , or of hurting yourself in some way? PHQ-9 Total Score If you checked off any problems, how difficult have these problems made it for you to do your work,take care of things at home, or get along with other people? Imaging Reviewed: MRI Brain Without Contrast Result Date: 04/13/2025 1.No acute or subacute ischemia. No acute hemorrhage. 2.Tiny old lacunar infarct left thalamus. 3.Mild age-appropriate atrophy. Electronically Signed: Jason Flores MD 04/13/2025 2:53 AM EDT Workstation ID: [id number] CT Angiogram Chest Result Date: 04/12/2025 Impression: 1.No evidence of pulmonary embolism nor other acute cardiopulmonary process. 2.Nonspecific interstitial lung changes with a degree of fibrosis most pronounced in the periphery of the lungbases. Electronically Signed: Artem Fox MD 04/12/2025 5:13 PM EDT Workstation ID: [id number] XR Chest 1 View Result Date: 04/12/2025 Impression: Scattered interstitial coarsening with interspersed airspace opacities, which could reflect pneumonia with possible component of underlying chronic lung disease. Pulmonary edema is a lesslikely differential consideration. No prior exams available for comparison. Electronically Signed: Lore Chávez MD 04/12/2025 7:12 AM EDT Workstation ID: [id number] Laboratory Results: Hemoglobin Date Value Ref Range Status 04/13/2025 11.8 (L) 12.0 - 15.9 g/dL Final 03/18/2025 13.0 11.2 - 15.7 g/dL Final Hematocrit Date Value Ref Range Status 04/13/2025 36.9 34.0 - 46.6 % Final 03/18/2025 41.8 34.0 - 45.0 % Final Platelets Date Value Ref Range Status 04/13/2025 385 140 - 450 10*3/mm3 Final 03/18/2025 378 (H) 155 - 369 10*3/uL Final Hemoglobin A1C Date Value Ref Range Status 04/12/2025 7.57 (H) 4.80 - 5.60 % Final LDL Cholesterol Date Value Ref Range Status 04/12/2025 100 0 - 100 mg/dL Final AST (SGOT) Date Value Ref Range Status 04/12/2025 13 1 - 32 U/L Final 09/18/2022 11 9 - 36 U/L Final ALT (SGPT) Date Value Ref Range Status 04/12/2025 13 1 - 33 U/L Final 09/18/2022 18 8 - 33 U/L Final Assessment / Plan Assessment/Plan: #History of TIA #Chronic left thalamic stroke -MRI brain without contrast is negative for new stroke; chronic left thalamic stroke noted -CTA reveals ICAD -P2Y12 215 indicating inadequate responsiveness -Continue Brilinta 90mg BID. Tolerating well. -Completed aspirin 81 mg for 21 days then continue Brilinta monotherapy indefinitely -BP goal <130/80 -Heart healthy diet -Activity as tolerated, fall risk precautions -Reviewed s/sxs of stroke and when to call 911 #Essential hypertension -BP goal <130/80 #Hyperlipidemia -LDL on admission 100, goal <70 -Continue Atorvastatin 80mg nightly -Patient has been taking her home 40 mg tablet. Have sent in a new prescription for her. #Diabetes Mellitus type 2 -A1c on admission, 7.57, goal <7 -Maintain euglycemia # Obstructive sleep apnea -Patient reports she does not wear her CPAP consistently at home, her supervisor lending activities is aware -We discussed how untreated ANDRES contributes to resistant hypertension and inability to lose weight -I have encouraged her to follow-up with her supervisor lending activities to discuss other options Discussed the importance of medication compliance and lifestyle modifications (adequate blood pressure control, adequate control of hyperlipidemia, adequate glycemic control, increase physical activity, and healthy diet) to help reduce the risk of future cerebrovascular events. Also discussed the signs symptoms that would warrant the patient return back to the emergency department including unilateral weakness, unilateral numbness, visual disturbances, loss of balance, speech difficulties, and/or a sudden severe headache. Follow Up: Return in about 3 months (around 09/27/2025). Margarita Blanc APRN [facility] Neuro Stroke [1] Social History Socioeconomic History Marital status: Tobacco Use Smoking status: Former Current packs/day: 0.00 Average packs/day: 2.0 packs/day for 24.0 years (48.0 ttl pk-yrs) Types: Cigarettes Start date: 1977 Quit date: 2001 Years since quittin.8 Smokeless tobacco: Never Vaping Use Vaping status: Never Used Substance and Sexual Activity Alcohol use: Never Drug use: Never Sexual activity: Defer [2] Current Outpatient Medications: acetaminophen (TYLENOL) 325 MG tablet, Take 2 tablets by mouth Every 4 (Four) Hours As Needed for Mild Pain., Disp: , Rfl: albuterol (PROVENTIL) (2.5 MG/3ML) 0.083% nebulizer solution, Take 2.5 mg by nebulization Every 6 (Six) Hours As Needed for Wheezing., Disp: , Rfl: albuterol sulfate HFA 108 (90 Base) MCG/ACT inhaler, Inhale 2 puffs Every 4 (Four) Hours As Needed for Wheezing., Disp: , Rfl: atorvastatin (LIPITOR) 80 MG tablet, Take 1 tablet by mouth Every Night., Disp: 30 tablet, Rfl: 0 esomeprazole (nexIUM) 40 MG capsule, Take 1 capsule by mouth Every Morning Before Breakfast., Disp:, Rfl: Lplmobegywg-Wahadqfws-Oelvcb (Trelegy Ellipta) 100-62.5-25 MCG/ACT inhaler, Inhale 1 puff Daily., Disp: , Rfl: insulin glargine (LANTUS, SEMGLEE) 100 UNIT/ML injection, Inject 50 Units under the skin into the appropriate area as directed Every Night., Disp: , Rfl: Insulin Lispro (humaLOG) 100 UNIT/ML injection, Inject 15 Units under the skin into the appropriatearea as directed 3 (Three) Times a Day Before Meals., Disp: , Rfl: isosorbide mononitrate (IMDUR) 60 MG 24 hr tablet, Take 1 tablet by mouth Daily., Disp: , Rfl: metoprolol succinate XL (TOPROL-XL) 25 MG 24 hr tablet, Take 1 tablet by mouth Daily., Disp: , Rfl: polyethylene glycol (MIRALAX) 17 g packet, Take 17 g by mouth Daily As Needed (Use if senna-docusate is ineffective)., Disp: , Rfl: Semaglutide,0.25 or 0.5MG/DOS, (OZEMPIC) 2 MG/1.5ML solution pen-injector, Inject 0.25 mg under theskin into the appropriate area as directed 1 (One) Time Per Week., Disp: , Rfl: spironolactone (ALDACTONE) 25 MG tablet, Take 1 tablet by mouth Daily., Disp: , Rfl: ticagrelor (BRILINTA) 90 MG tablet tablet, Take 1 tablet by mouth 2 (Two) Times a Day., Disp: 60 tablet, Rfl: 0 [3] Allergies Allergen Reactions Penicillins Anaphylaxis As a child at 1 years old Sulfa Antibiotics Itching and Angioedema documented in this encounter Plan of Treatment Upcoming Encounters Date Type Department Care Team (Late st Contact Info) Description 09/27/2025 11:30 AM EST Office Visit [facility] [address] [place] [address] Margarita Blanc APRN [address] [facility] [address] [address] documented as of this encounter Visit Diagnoses Diagnosis History of TIA (transient ischemic attack)- Primary Hyperlipidemia, unspecified hyperlipidemia type Primary hypertension Unspecified essential hypertension Type 2 diabetes mellitus with hyperglycemia, with long-term current use of insulin History of stroke Transient ischemic attack (TIA), and cerebral infarction without residual deficits ANDRES (obstructive sleep apnea) Obstructive sleep apnea (adult) (pediatric) documented in this encounter Care Teams Iron Guardrail Installer Relationship Specialty Start Date End Date Eben Liu MD [address] [facility] [address] [place] [address] PCP - General Adolescent Medicine 04/12/25 documented as of this encounter
--- OUTSIDE RECORDS SUMMARY | 2025-07-27 09:00 | XMS_ITS | Encounter Summary ---
Author Organization [facility] Address [address] [place] [address] Care Team Providers Care Motorboat Mechanic Inboard Name Role Phone Eben Liu MD Primary Care Provider [phone] Reason for Referral * Medications - Authorized Specialty Diagnoses / Procedures Referred By Sallie latif Referred To Contact Diagnoses Pulmonary fibrosis Kamini Fu DO [address] [place] [address] Phone: tel: fax: Referral ID Status Reason Start Date Expiration Date V isits Requested Visits Authorized [id number] Authorized 07/13/2025 09/07/2099 1 1 * Consultation (Routine) - Authorized Specialty Diagnoses / Procedures Referred By Sallie latif Referred To Contact Diagnoses 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) High risk medication use Chronic hypoxemic respiratory failure ANDRES (obstructive sleep apnea) Rheumatoid arthritis involving multiple sites with positive rheumatoid factor (CMS/HCC) Kamini Fu DO [address] [place] [address] Phone: tel: fax: Referral ID Status Reason Start Date Expiration Date V isits Requested Visits Authorized [id number] Authorized 07/27/2025 01/26/2027 1 1 Reason for Visit * Reason Comments Follow-up Chronic hypoxemic re spiratory failure (CMS/HCC) Shortness of Breath Encounter Details Date Type Department Care Team (Late st Contact Info) Description 07/27/2025 9:00 AM EST Office Visit [facility] Medicine Specialties [address], [address] [place] [address] Kamini Fu DO [address] [place] [address] Chronic hypoxemic respiratory failure (Primary [...] for syncopal episode and one admission to [facility] 07/23- 07/24/2025 for AHRF. Reports good adherence to inhaler therapy. Breathing had been at baseline p/t recent admission to [facility]. Continues to use portable O2 and [...] 750mg and prednisone 20mg. 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 Morbid obesity ([facility]) Obesity ANDRSE on CPAP Personal history of other diseases of the respiratory system History of asthma Personal history of pneumonia (recurrent) History of pneumonia Rheumatoid arthritis involving multiple sites with positive rheumatoid factor ([facility]) since age 36 Sinusitis 06/23/24 UTI (urinary [...] Violence: Not At Risk (04/12/2025) Received from [facility] Abuse Screen Feels Unsafe at Home or Work/School: no Feels Threatened by Someone: no Does Anyone Try to Keep You From Having Contact with Others or Doing Things Outside Your Home?: no Physical Signs of Abuse Present: no Housing Stability: Unknown (04/12/2025) Received from [facility] Housing Stability Current Living Arrangements: home Potentially [...] Expiration Date: 01/24/2027 [facility] Cystic Fibrosis Respiratory Culture and Gram Stain This patient has been ordered a cystic fibrosis respiratory culture. Although they do not have cystic fibrosis, this patient DOES have severe bronchiectasis, and use of the cystic fibrosis culture protocol is medically necessary. Please contact me with questions. Standing Status: Future Expected Date: 07/27/2025 Expiration Date: 01/24/2027 [facility] [1] Follow Up Pulm Standing Status: [...] MD IM PGY-2 Dr. Kamini Fu DO, [facility] Interstitial Lung Disease Specialty Clinic [place]iver, Pulmonary and Critical Care Fellowship at the [facility] public safety director Cosigned by Kamini Fu DO at 07/27/2025 [...] will continue on these medications. Labs from [facility] drawn on 07/24/2025 were within [...] the skin 4 (four) times a day. Uxnczob-Avxxhjltfts-Mnyigdomes (Breztri Aerosphere) 160-9-4.8 MCG/ACT aerosol Inhale 2 [...] Description 12/30/2025 9:00 AM EDT Ancillary Procedure [facility] Medicine Specialties [address], [address] [place] [phone] 12/30/2025 10:30 AM EDT Office Visit [facility] Medicine Specialties [address], [address] [place] [phone] Kamini Fu, DO [address] [place] [address] 12/30/2025 11:20 AM EDT Office Visit [facility] Medicine [facility] [address], [address] [place] [phone] Bridget Bhat DO [address] [place] [address] Scheduled Orders Name Type Priority Associated Diagnoses [...] documented as of this encounter Care Teams Motorboat Mechanic Inboard Relationship Specialty Start Date End Date Eben Liu MD [address] [id number] PCP - General Internal Medicine 12/19/23 documented as of this encounter
--- OUTSIDE RECORDS SUMMARY | 2025-07-27 11:15 | XMS_ITS | Encounter Summary ---
Author Organization [facility] Address [address] [place] [address] Care Team Providers Care Health Counselor Name Role Phone Eben Liu MD Primary Care Provider [phone] Reason for Referral * Consultation (Routine) - Authorized Specialty Diagnoses / Procedures Referred By Contac t Referred To Contact Neurology Diagnoses Cerebrovascular accident (CVA), unspecified mechanism (CMS/HCC) Bridget Bhat DO [address] [place] [address] Phone: tel: fax: [facility] [address], [address] [place] [address] Phone: tel: fax: Referral ID Status Reason Start Date Expiration Date Visits Requested Visits Authorized [id number] Authorized Specialty Services Required 5 01/26/2027 1 1 Reason for Visit * Reason Comments ILD Encounter Details Date Type Department Care Team (Late st Contact Info) Description 07/27/2025 11:15 AM EST Office Visit [facility] [address], [address] [place] [address] Bridget Bhat DO [address] [facility] [address] [place] [id number] Rheumatoid arthritis involving multiple sites with positive rheumatoid factor (CMS/HCC) (Primary Dx); Seropositive rheumatoid arthritis of multiple sites (CMS/HCC); High risk medication use; ILD (interstitial lung disease) (CMS/HCC); Cerebrovascular accident (CVA), unspecified mechanism (CMS/HCC) Social History Tobacco Use Types Packs/Day Years Used Date Smoking Tobacco: Former Cigarettes 1.5 20 1 - 2001 Pipe Passive Smoke Exposure: Past [...] Sign Reading Time Taken Comments Blood Pressure 104/67 07/27/2025 11:39 AM EST Pulse 93 07/27/2025 11:39 AM EST Temperature 36.6 C (97.9 F) 07/27/2025 11:39 AM EST Respiratory Rate 18 07/27/2025 11:3 9 AM EST Oxygen Saturation 92% 07/27/2025 11: 39 AM EST 2 LITERS 02 Inhaled Oxygen Concentration - - Weight 85.6 kg (188 lb 11.4 oz) 07/27/2025 11:39 AM EST Height 160 cm (5' 3 ) 07/27/2025 11:39 AM EST Body Mass Index 33.43 07/27/2025 11:39 AM EST documented in this encounter Functional [...] Miscellaneous Notes * Progress Notes - Bridget BhatDO - 07/27/2025 11:15 AM EST Rheumatology Office Visit - Follow-up HPI: Prior fellow patient, transferred to [facility] 06/2024. Karyn Sanz is a 63 y.o. female who is here for a follow up of rheumatoid arthritis complicated by interstitial lung disease requiring supplemental oxygen at rest. Rheum medication history: Leflunomide (diffuse blistering rash) SSZ ( lack of response) HCQ (Lack of reponse) Methotrexate 9728-5195 ( d/c due to ILD/hypersensitivity pneumonitis) Adalimumab (partial response only with weekly injection) Xeljanz ( ineffective) Actemra ( ineffective). Rituximab 07/2020 RA protocol every 6 months, then transitioned to every 4 months in 01/2021- current MMF 1500 bid- 06/2024 stopped due to GI side effects- transitioned to Myfortic 360 mg BID with plans to uptitrate. Prednisone intermittently. Interim history: Follow-up for RA-ILD. She was seen by pulmonology prior to our visit with plans to start nintenanib (Ofev) for acute exacerbation of ILD. She declines lung transplant at this time. Reports her joints are generally okay, sometimes has intermittent joint pain, overall thinks this her joint pain is OA related. She has beenplaying the piano. If she is having a bad day in general then she will also have a bad day with RA. She does report chest pain but feels this is secondary to her lungs. No recurrent fevers or infections reported. Review of system: 14 point ROS was [...] Sinusitis 06/23/24 UTI (urinary tract infection) 06/23/24 Psx: Past Surgical History: Procedure Laterality Date [...] drinks of alcohol Allergies: Allergies Allergen Reactions Penicillins Unknown - Patient states they do not know rxn details and Anaphylaxis As a child at 1 years old Sulfa Drugs Rash, Angioedema and Itching Leflunomide Unknown - Patient states they do not know rxn details Medications: Objective Physical Exam: GENERAL APPERANCE: In no distress, sitting in chair, on oxygen 2-3 L SKIN: No rashes. RESPIRATORY: Normal respiratory effort. No wheezing appreciated. PSYCHIATRIC: Congruent mood and affect. MUSCULOSKELETAL: No tenderness or synovitis appreciated of PIPs, MCPs, wrists, elbows, knees, ankles. Labs: Lab Results Component Value Date SEDRATE 45 (H) 03/18/2025 RF 24 (H) 12/11/2023 CRP 11.4 (H) 03/18/2025 CCPIGG 106.6 (H) 12/11/2023 ASSESSMENT & PLAN: Seropositive RA, ILD Diagnosed at the age of 36, seropositive, erosive, with ILD CCP 106.6 (<5.0), RF 24 (<14). CRP and ESR chronically elevated PLAN: -Continue Rituximab every 4 months (RA dosing) -Myfortic 720 mg BID per pulmonology -Needs full Ig profile prior to next infusion, she has had low IgM, does predispose her to infection- monitor closely for frequent or recurrent infections -Monitoring labs today -Pulm with plans to start nintedanib (Ofev). She is declining lung transplant at this time. 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 She reports that her last DEXA was a couple year ago, no records available. She is not sure if she has had one done with her PCP, she wants to check with PCP before we reorderone again. Vitamin D okay History of stroke Admitted for dizziness and headache, MRI with chronic L thalamic stroke Following with neurology- prefers to see neurologist at , referral placed Obstructive sleep apnea On CPAP CAD Follows with cardiology Osteoarthritis: Pain at the 1st carpometacarpal joint bilaterally Diclofenac gel as needed. Splints as needed T2DM, obesity Losing weight on Mounjaro, she notes this has helped with her breathing as well Immunization History Administered Date(s) Administered Influenza, High-dose, Split Virus, Trivalent, Injectable, preservative free 10/14/2018, 06/23/2024,06/01/2025 Influenza, high-dose, quadrivalent 10/14/2018 Influenza, injectable, quadrivalent 05/07/2017 Influenza, injectable, quadrivalent, preservative free 07/08/2019, 07/02/2023 Influenza, recombinant, quadrivalent, injectable, preservative free 07/14/2020 [employer] COVID-19 Vaccine (Jack Cap) 12+ years (jamee-sucrose) 04/03/2022 Pneumococcal 20-harley Conj Vaccine 10/04/2022 Pneumococcal Conjugate PCV 13 07/09/2017 Rsvpref, Recombinant, Protein Subunit, Adjuvent 07/21/2024 Tdap 05/29/2018 Zoster, Recombinant 01/03/2023, 03/01/2024 Follow Up: Next scheduled follow up: December 2025- same day as pulmonology documented in this encounter Plan of Treatment Upcoming Encounters Date Type Department Care Team (Late st Contact Info) Description 12/30/2025 9:00 AM EDT Ancillary Procedure [facility] Medicine Specialties [address], [address] [place] [address] 12/30/2025 10:30 AM EDT Office Visit [facility]ties [address], [address] [place] [address] Kamini Fu, DO [address] [place] [address] 12/30/2025 11:20 AM EDT Office Visit [facility]ties [address], [address] [place] [address] Bridget Bhat DO [address] [place] [address] Scheduled Referrals Name Type Priority Associated Diagnoses Orde r Schedule Neurology Outpatient Referral Routine Cerebrovascular accident (CVA), unspecified mechanism (CMS/HCC) Expected: 07/27/2025 (Approximate), Expires: 01/28/2027 documented as of this encounter Results * (ABNORMAL) IG Profile (07/27/2025 12:43 PM EST) IGA 473(H) 75 - 400 mg/dL 07/27/2025 3:12 PM EST [facility] IGG 897 720 - 1,589 mg/dL 07/27/2025 3:12 PM EST [facility] IGM 26(L) 35 - 225 mg/dL 07/27/2025 3:12 PM EST [facility] Blood Venous blood specimen / Unknown Venipuncture / Unknown 07/27/2025 12:43 PM EST 07/27/2025 12:43 PM EST us Bridget Bhat DO LAB BLOOD ORDERABLES Final Resu lt [facility] [address] [place] [address] * (ABNORMAL) Sedimentation Rate, Automated (07/27/2025 12:43 PM EST) Sedimentation Rate 53(H) <30 mm/hr 2024 2:52 PM EST [facility] Blood Venous blood specimen / Unknown Venipuncture / Unknown 07/27/2025 12:43 PM EST 07/27/2025 12:43 PM EST [employer] LAB BLOOD ORDERABLES Final Resu lt Performing Organization Address [facility]/ZIP Co de Phone Number [facility] [address] [place] [address] * (ABNORMAL) C-Reactive Protein, Plasma (07/27/2025 12:43 PM EST) CRP, Plasma 15.0(H) <=8.0 mg/L 07/27/2025 3:12 PM EST [facility] Blood Venous blood specimen / Unknown Venipuncture / Unknown 07/27/2025 12:43 PM EST 07/27/2025 12:43 PM EST Narrative [facility] - 07/27/2025 3:12 PM EST This CRP test is appropriate for assessment of infection, systemic inflammation and/or tissue injury. To assess cardiovascular disease risk order high sensitivity CRP (CRPH). [employer] LAB BLOOD ORDERABLES Final Resu lt Performing Organization Address [facility] Co de Phone Number [facility] [address] [place] [address] * (ABNORMAL) CBC and Differential (07/27/2025 12:43 PM EST) WBC Count 5.58 3.70 - 10.30 10*3/uL LAB HEMATOLOGY METHOD 07/27/2025 4:38 PM EST [facility] RBC Count 4.40 3.90 - 5.20 10*6/uL LAB HEMATOLOGY METHOD 07/27/2025 4:38 PM EST [facility] HGB 11.9 11.2 - 15.7 g/dL LAB HEMATOLOGY METHOD 07/27/2025 4:38 PM EST [facility] HCT 38.2 34.0 - 45.0 % LAB HEMATOLOGY METHOD 07/27/2025 4:38 PM EST [facility] Platelet Count 485(H) 155 - 369 10*3/uL LAB HEMATOLOGY METHOD 07/27/2025 4:38 PM EST [facility] MCV 87 79 - 98 fL LAB HEMATOLOGY METHOD 07/27/2025 4:38 PM EST [facility] MCH 27.0 26.0 - 32.0 pg LAB HEMATOLOGY METHOD 07/27/2025 4:38 PM EST [facility] MCHC 31.2 30.7 - 35.5 g/dL LAB HEMATOLOGY METHOD 07/27/2025 4:38 PM EST [facility] RDW 13.3 11.5 - 14.5 % LAB HEMATOLOGY METHOD 07/27/2025 4:38 PM EST [facility] MPV 10.5 8.8 - 12.5 fL LAB HEMATOLOGY METHOD 07/27/2025 4:38 PM EST [facility] nRBC 0.0 <=0.0 per 100 WBCs LAB HEMATOLOGY METHOD 07/27/2025 4:38 PM EST [facility] Differential Type Manual LAB HEMATOLOGY METHOD 07/27/2025 4:38 PM EST [facility] Blood Venous blood specimen / Unknown Venipuncture / Unknown 07/27/2025 12:43 PM EST 07/27/2025 12:43 PM EST Narrative [facility] - 07/27/2025 4:38 PM EST Therapeutic decision making should be based on absolute values, rather than percentages. The previously reported component Neutrophils % is no longer being reported.The previously reported component Lymphocytes % is no longer being reported.The previously reported component Monocytes % is no longer being reported.The previously reported component Eosinophils % is no longer being reported.The previously reported component Basophils % is no longer being reported.The previously reported component Immature Granulocytes % is no longer being reported.The previously reported component Absolute Neutrophils is no longer being reported.The previously reported component Absolute Lymphocytes is no longer being reported.The previously reported component Absolute Monocytes is no longer being reported.The previously reported component Absolute Eosinophils is no longer being reported.The previously reported component Absolute Basophils is no longer being reported.The previously reported component Absolute Immature Granulocytes is no longer being reported. us Bridget Bhat DO LAB BLOOD ORDERABLES Final Resu lt [facility] [address] [place] [address] * (ABNORMAL) Comprehensive Metabolic Panel, Plasma (07/27/2025 12:43 PM EST) Glucose, Plasma 156(H) 74 - 99 mg/dL 07/27/2025 3:12 PM EST [facility] BUN, Plasma 19 8 - 23 mg/dL 07/27/2025 3:12 PM EST [facility] Creatinine, Plasma 0.61 0.60 - 1.10 mg/dL 07/27/2025 3:12 PM EST [facility] BUN/Creatinine Ratio 31 07/27/2025 3:12 PM EST [facility] Sodium, Plasma 135(L) 136 - 145 mmol/L 07/27/2025 3:12 PM EST [facility] Potassium, Plasma 4.0 3.6 - 4.9 mmol/L 07/27/2025 3:12 PM EST [facility] Chloride, Plasma 97 97 - 107 mmol/L 07/27/2025 3:12 PM EST [facility] CO2, Plasma 28 22 - 29 mmol/L 07/27/2025 3:12 PM EST [facility] Anion Gap 10 6 - 16 mmol/L 07/27/2025 3:12 PM EST [facility] Total Calcium, Plasma 9.3 8.9 - 10.2 mg/dL 07/27/2025 3:12 PM EST [facility] Total Protein 6.8 6.3 - 7.9 g/dL 07/27/2025 3:12 PM EST [facility] Albumin, Plasma 3.7 3.5 - 5.2 g/dL 07/27/2025 3:12 PM EST [facility] AST, Plasma 10 10 - 35 U/L 07/27/2025 3:12 PM EST [facility] ALT, Plasma 16 10 - 35 U/L 07/27/2025 3:12 PM EST [facility] Alkaline Phosphatase, Plasma 92 46 - 142 U/L 07/27/2025 3:12 PM EST [facility] Total Bilirubin, Plasma 0.5 0.2 - 1.1 mg/dL 07/27/2025 3:12 PM EST [facility] eGFRcr 98.7 mL/min/1.7 3m*2 07/27/2025 3:12 PM EST [facility] Comment:Reported eGFRcr in m L/min/1.73m2 is based the CKD-EPI 2020 equation that does not use a race coefficient. Blood Venous blood specimen / Unknown Venipuncture / Unknown 07/27/2025 12:43 PM EST 07/27/2025 12:43 PM EST us Bridget Bhat DO LAB BLOOD ORDERABLES Final Resu lt [facility] [address] [place] [address] documented in this encounter Visit Diagnoses Diagnosis Rheumatoid arthritis involving multiple sites with positive rheumatoid factor (CMS/HCC)- Primary Seropositive rheumatoid arthritis of multiple sites (CMS/HCC) High risk medication use ILD (interstitial lung disease) (CMS/HCC) Postinflammatory pulmonary fibrosis Cerebrovascular accident (CVA), unspecified mechanism (CMS/HCC) documented in this encounter Additional Health Concerns Assessment Noted Time PHQ-9 Depression Total Score: 2 07/27/20 25 11:45 AM EST A fall risk assessment has been complete d for the patient 07/27/2025 11:46 AM EST A Body Mass Index follow-up plan has been documented for the patient 07/27/2025 12:18 PM EST documented as of this encounter Care Teams Health Counselor Relationship Specialty Start Date End Date Eebn Liu MD [address] [place] [address] PCP - General Internal Medicine 12/19/23 documented as of this encounter
[2025-08-01 10:32] LABS: Hematocrit 39.1 % (37.0-47.0); Hemoglobin 11.9 g/dL (12.2-16.2); Immature Granulocytes % 0.8 %; Mean Corpuscular HGB Conc 30.4 g/dL (31.8-35.4); Mean Corpuscular Hemoglobin 28.2 pg (27.0-31.2); Mean Corpuscular Volume 92.7 fl (81-99); Nucleated Red Blood Cells % 0 %; Platelet Count 445 K/mm3 (142-424); Red Blood Count 4.22 M/mm3 (4.20-5.40); Red Cell Distribution Width-SD 45.0 fL; White Blood Count 7.9 K/mm3 (4.8-10.8)
--- OUTSIDE RECORDS SUMMARY | 2025-08-01 10:39 | XMS_ITS | Encounter Summary ---
Author Organization Healthcare Address [address] [place] [address] Care Team Providers Care Outside Sales Account Representative Name Role Phone Eben Liu MD Primary Care Provider Encounter Details Date Type Department Care Team ([facility] st Contact Info) Description 07/23/2025 Orders Only External Location [address] [place] [address] Provider, External Social History Tobacco Use Types [...] Procedure [facility] [address] [place] [address] 12/30/2025 10:30 AM EDT Office Visit [facility] [address] [place] [address] Camac, Kamini R, DO [address] [place] [address] 12/30/2025 11:20 AM EDT Office Visit [facility] [address] [place] [address] Birdget Bhat, DO [address] [place] [address] documented as of this encounter [...] documented as of this encounter Care Teams Outside Sales Account Representative Relationship Specialty Start Date End Date Eben Liu MD [address] [place] [address] PCP - General Internal Medicine 12/19/23 documented as of this encounter
--- OUTSIDE RECORDS SUMMARY | 2025-08-01 10:39 | XMS_ITS | Encounter Summary ---
Author Organization Healthcare Address [address] [place] [address] Care Team Providers Care Treating Engineer Helper Name Role Phone Eben Liu MD Primary Care Provider Encounter Details Date Type Department Care Team ([facility] st Contact Info) Description 07/23/2025 Orders Only External Location [address] [place] [address] Provider, External Social History Tobacco Use Types [...] Description 12/30/2025 9:00 AM EDT Ancillary Procedure [facility] [address] [place] [address] 12/30/2025 10:30 AM EDT Office Visit [facility] [address] [place] [address] CamacKamini R, DO [address] [place] [address] 12/30/2025 11:20 AM EDT Office Visit [facility] [address] [place] [address] Bridget Bhat, DO [address] [place] [address] documented as of this encounter [...] documented as of this encounter Care Teams Treating Engineer Helper Relationship Specialty Start Date End Date Eben Liu MD [address] [place] [address] PCP - General Internal Medicine 12/19/23 documented as of this encounter
--- OUTSIDE RECORDS SUMMARY | 2025-08-01 10:40 | XMS_ITS | Encounter Summary ---
Author Organization Healthcare Address [address] [address] Care Team Providers Care Jail Manager Name Role Phone Eben Liu MD Primary Care Provider [phone] Encounter Details Date Type Department Care Team (Late st Contact Info) Description 06/02/2025 Telephone [facility] [address] [place] [address] Bridget Bhat DO [address] [address] Social History Tobacco Use Types Packs/Day [...] Description 12/30/2025 9:00 AM EDT Ancillary Procedure [facility] [address] [place] [address] 12/30/2025 10:30 AM EDT Office Visit [facility] [address] [place] [address] CamacKamini R, DO [address] [address] 12/30/2025 11:20 AM EDT Office Visit [facility] [place] Special[facility] [address] [place] [address] Bridget Bhat, DO [address] [address] documented as of this encounter Visit Diagnoses Not on filedocumented in this encounter Additional Health Concerns Assessment Noted Time A fall risk assessment has been complete d for the patient 03/18/2025 9:35 AM EDT A Body Mass Index follow-up plan has been documented for the patient 03/18/2025 10:34 AM EDT documented as of this encounter Care Teams Jail Manager Relationship Specialty Start Date End Date Eben Liu MD [address] [place] [address] PCP - General Internal Medicine 12/19/23 documented as of this encounter
--- OUTSIDE RECORDS SUMMARY | 2025-08-01 10:40 | XMS_ITS | Encounter Summary ---
Author Organization Healthcare Address [address] [place] [address] Care Team Providers Care Exploitation Analyst Name Role Phone Eben Liu MD Primary Care Provider [phone] Encounter Details Date Type Department Care Team (Late st Contact Info) Description 07/06/2025 Orders Only [facility] Medicine Specialties [address] [place] [address] Bridget Bhat DO [address] [place] [address] ILD (interstitial lung disease) (CMS/HCC) [...] [facility] [address], [address] [place] [address] 12/30/2025 10:30 AM EDT Office Visit [facility] Specialties [address] [place] [address] Kamini Fu, DO [address] [place] [address] 12/30/2025 11:20 AM EDT Office Visit [facility] [address] [place] [address] Bridget Bhat, DO [address] [place] [address] documented as of this encounter Visit Diagnoses [...] documented as of this encounter Care Teams Exploitation Analyst Relationship Specialty Start Date End Date Eben Liu MD [address] [place] [address] PCP - General Internal Medicine 12/19/23 documented as of this encounter
--- OUTSIDE RECORDS SUMMARY | 2025-08-01 10:40 | XMS_ITS | Encounter Summary ---
Author Organization Healthcare Address [address] [place] [address] Care Team Providers Care Prize Fighter Name Role Phone Eben Liu MD Primary Care Provider [phone] Encounter Details Date Type Department Care Team (Late st Contact Info) Description 07/28/2025 Telephone [facility] [address] [place] [address] Bridget Bhat DO [address] [place] [address] Social History Tobacco Use Types [...] Procedure [facility] [address] [place] [address] 12/30/2025 10:30 AM EDT Office Visit [facility] [address], [address] [place] [address] Kamini Fu DO [address] [place] [address] 12/30/2025 11:20 AM EDT Office Visit [facility] [address] [place] [address] Bridget Bhat DO [address] [place] [address] documented as of this encounter Visit Diagnoses [...] documented as of this encounter Care Teams Prize Fighter Relationship Specialty Start Date End Date Eben Liu MD [address] [place] [address] PCP - General Internal Medicine 12/19/23 documented as of this encounter
--- OUTSIDE RECORDS SUMMARY | 2025-08-01 10:40 | XMS_ITS | Encounter Summary ---
Author Organization Healthcare Address [address] [place] [address] Care Team Providers Care Fondant Machine Operator Name Role Phone Eben Liu MD Primary Care Provider [phone] Encounter Details Date Type Department Care Team (Late st Contact Info) Description 12/25/2023 Orders Only External Location [address] [place] [address] Provider, External Social History Tobacco Use Types [...] [facility] Medicine Specialties [address] [place] [address] 12/30/2025 10:30 AM EDT Office Visit [facility] Specialties [address] [place] [address] CamKamini santana R, DO [address] [place] [address] 12/30/2025 11:20 AM EDT Office Visit [facility] Medicine Specialties [address] [place] [address] Bridget Bhat, DO [address] [place] [address] documented as of this encounter [...] documented as of this encounter Care Teams Fondant Machine Operator Relationship Specialty Start Date End Date Eben Liu MD [address] [place], [place] [address] PCP - General Internal Medicine 12/19/23 documented as of this encounter
--- OUTSIDE RECORDS SUMMARY | 2025-08-01 10:40 | XMS_ITS | Encounter Summary ---
Author Organization Healthcare Address [address] [place] [address] Care Team Providers Care Tailor Helper Name Role Phone Eben Liu MD Primary Care Provider [phone] Encounter Details Date Type Department Care Team [...] Description 12/30/2025 9:00 AM EDT Ancillary Procedure [facility] Medicine Specialties [address] [place] [address] 12/30/2025 10:30 AM EDT Office Visit [facility] Medicine Specialties [address] [place] [address] Kamini Fu, DO [address] [place] [address] 12/30/2025 11:20 AM EDT Office Visit [facility] Specialties [address] [place] [address] Bridget Bhat, DO [address] [place] [address] documented as of this encounter [...] documented as of this encounter Care Teams Tailor Helper Relationship Specialty Start Date End Date Eben Liu MD [address] [place] [address] PCP - General Internal Medicine 12/19/23 documented as of this encounter
--- OUTSIDE RECORDS SUMMARY | 2025-08-01 10:40 | XMS_ITS | Clinical Summary ---
Author Organization [facility] Address [address] [place] [address] Care Team Providers Care Parent Partner Name Role Phone Eben Liu MD Primary Care Provider [phone] Allergies Active Allergy Reactions Criticality Noted Date [...] Department Care Team Description 06/28/2025 Patient rounding ([facility] [facility] [address] [place] [address] Rufina Morataya RegSched Rep 06/27/2025 11:00 AM EDT Office Visit [facility] [address] [place] [address] Margarita Blanc, ROGER History of TIA (transient [...] Description 09/27/2025 11:30 AM EST Office Visit [facility] [address] [facility] [address] [place], [place] [id number] Margarita Blanc, MOBILITY ENGINEER [address] [facility] [address] [address] Health Maintenance Due Date Last Done Comments [...] - 5.60 % 04/12/2025 6:00 AM EDT [facility] Blood Venipuncture / Unknown 04/12/2025 4:54 AM EDT 04/12/2025 5:05 AM EDT [facility] - 04/12/2025 6:00 AM EDT Hemoglobin A1C Ranges: Increased Risk for Diabetes 5.7% to 6.4% Diabetes >= 6.5% Diabetic Goal < 7.0% May Arnoldo MOBILITY ENGINEER LAB BLOOD ORDERABLES Fi nal Result [facility]
[address] [place] [address], * Lipid Panel (04/12/2025 4:54 AM EDT) Total Cholesterol 159 0 - 200 mg/dL 04/12/2025 5:31 AM EDT [facility] Triglycerides 55 0 - 150 mg/dL 04/12/2025 5:31 AM EDT [facility] HDL Cholesterol 48 40 - 60 mg/dL 04/12/2025 5:31 AM EDT [facility] LDL Cholesterol 100 0 - 100 mg/dL 04/12/2025 5:31 AM EDT [facility] VLDL Cholesterol 11 5 - 40 mg/dL 04/12/2025 5:31 AM EDT [facility] LDL/HDL Ratio 2.08 04/12/2025 5:31 AM EDT [facility] Blood Venipuncture / Unknown 04/12/2025 4:54 AM EDT 04/12/2025 5:05 AM EDT [facility] - 04/12/2025 5:31 AM EDT Cholesterol [...] Arnoldo DURAN LAB BLOOD ORDERABLES nal Result [facility]
[address] [place] [address], from Last 3 Months or Most Recently [...] Of Support Discussed With: Patient Care Teams Parent Partner Relationship Specialty Start Date End Date Eben Liu MD [facility] [address] [address] PCP - General Adolescent Medicine 04/12/25
--- OUTSIDE RECORDS SUMMARY | 2025-08-01 10:40 | XMS_ITS | Encounter Summary ---
Author Organization [facility] Address [address] [place] [address] Care Team Providers Care Strategic Marketing Associate Name Role Phone Kwame Solomon MD Primary Care Provider [phone] Eben Liu MD Primary Care Provider [phone] Encounter Details Date Type Department Care Team (Late st Contact Info) Description 10/07/2022 Orders Only External Location [address] [place] [address] Provider, External Social History Tobacco Use Types [...] Description 12/30/2025 9:00 AM EDT Ancillary Procedure [facility] Medicine Specialties [address], [address] [place] [address] 12/30/2025 10:30 AM EDT Office Visit [facility] Medicine Specialties [address], 2[address] [place] [address] Kamini Fu, DO [address] [place] [address] 12/30/2025 11:20 AM EDT Office Visit [facility] Medicine Specialties [address], [address] [place] [address] Bridget Bhat, DO [address] [place] [address] documented as of this encounter [...] documented as of this encounter Care Teams Strategic Marketing Associate Relationship Specialty Start Date End Date Kwame Solomon MD [facility] [address] [place] [address] PCP - General 01/19/21 12/18/23 Eben Liu MD [address] [place] [address] [address] [place] [address] PCP - General Internal Medicine 12/19/23 documented as of this encounter
--- OUTSIDE RECORDS SUMMARY | 2025-08-01 10:40 | XMS_ITS ---
Author Organization [facility] Address [address] [place] [address] Care Team Providers Care Drywaller Name Role Phone Eben Liu MD Primary Care Provider [phone] Transplant Episode Lung Candidate [facility] ([place], [place]) - KYLEE Referred on 06/23/2024 Marked as Internal Hold on 07/21/2024 Reason: Patient Choice Lung CoordinatorLindy Mata Phone: N/A Fax: N/A Email: N/A Care Team Name Role Phone Fax Email Lindy Mata Lung Coordinator N/A N/A N /A Events Pre-Transplant Referred: 06/23/2024
--- OUTSIDE RECORDS SUMMARY | 2025-08-01 10:40 | XMS_ITS | Encounter Summary ---
Author Organization Healthcare Address [address] [place] [address] Care Team Providers Care Batch Mixing Truck Driver Name Role Phone Eben Liu MD Primary Care Provider [phone] Encounter Details Date Type Department Care Team (Late st Contact Info) Description 07/27/2025 Orders Only [facility] Medicine Specialties [address], [address]nd [place] [address] Elroy Rosenthal MD [address] [place] [address] ILD (interstitial lung disease) (CMS/HCC) [...] Procedure [facility] Medicine Specialties [address], [address] [place] [address] 12/30/2025 10:30 AM EDT Office Visit [facility] Medicine [facility] [address], 2nd [place] [address] CamKamini santana R, DO [address] [place] [address] 12/30/2025 11:20 AM EDT Office Visit [facility] Medicine [facility] [address], [address] [place] [address] AnticBridget, DO [address] [place] [address] documented as of this encounter Results * N-Terminal Probnp, Plasma (07/27/2025 12:43 PM EST) N-Terminal, PROBNP, Plasma 269 0 - 899 pg/mL 07/27/2025 3:12 PM EST [facility] Blood Venous blood specimen / Unknown Venipuncture / Unknown 07/27/2025 12:43 PM EST 07/27/2025 12:43 PM EST us Elroy Rosenthal MD LAB BLOOD ORDERABLES Final R esult [facility] [address] [place] [address] documented in this encounter Visit Diagnoses Diagnosis [...] documented as of this encounter Care Teams Batch Mixing Truck Driver Relationship Specialty Start Date End Date Eben Liu MD [address] [place] [address] PCP - General Internal Medicine 12/19/23 documented as of this encounter
--- OUTSIDE RECORDS SUMMARY | 2025-08-01 10:40 | XMS_ITS | Encounter Summary ---
Author Organization [facility] Address [address] [place] [address] Care Team Providers Care Manager Video Name Role Phone Eben Liu MD Primary Care Provider [phone] Encounter Details Date Type Department Care Team (Latest Contact Info) Description 06/27/2025 Travel Social History Tobacco Use Types Packs/Day Years Used Date Smoking Tobacco: Former Cigarettes 2 01 10 978 - 2001 Passive Smoke Exposure: Past [...] Description 09/27/2025 11:30 AM EST Office Visit [facility] [address] [facility] [address] [place] [address] Margarita Blanc, CV RN [address] [facility] [address] [address] documented as of this encounter Visit Diagnoses Not on filedocumented in this encounter Care Teams Manager Video Relationship Specialty Start Date End Date Eben Liu MD [address] [facility] [address] [place] [address] PCP - General Adolescent Medicine 04/12/25 documented as of this encounter
--- OUTSIDE RECORDS SUMMARY | 2025-08-01 10:40 | XMS_ITS | Encounter Summary ---
Author Organization Healthcare Address [address] [place] [address] Care Team Providers Care Cuff Stitcher Name Role Phone Eben Liu MD Primary Care Provider [phone] Encounter Details Date Type Department Care Team (Late st Contact Info) Description 06/20/2025 Orders Only [facility] Medicine Specialties [address], [address] [place] [address] Provider, [place] [phone] Social History Tobacco Use Types Packs/Day Years [...] 9:00 AM EDT Ancillary Procedure [facility] Medicine Specialties [address], [address] [place] [address] 12/30/2025 10:30 AM EDT Office Visit [facility] Specialties [address], [address] [place] [address] CamacKamini R, DO [address] [place] [address] 12/30/2025 11:20 AM EDT Office Visit [facility] Specialties [address], [address] [place] [address] Bridget Bhat, DO [address] [place] [address] documented as of this encounter Procedures Procedure [...] documented as of this encounter Care Teams Cuff Stitcher Relationship Specialty Start Date End Date Eben Liu MD [address] [place] [address] PCP - General Internal Medicine 12/19/23 documented as of this encounter
--- OUTSIDE RECORDS SUMMARY | 2025-08-01 10:40 | XMS_ITS | Encounter Summary ---
Author Organization Healthcare Address [address] [place] [address] Care Team Providers Care Ethylene Plant Helper Name Role Phone Eben Liu MD Primary Care Provider [phone] Encounter Details Date Type Department Care Team (Late st Contact Info) Description 06/08/2025 Telephone [facility] [address] [place] [address] Ananya Rubio, PharmD None None Social History [...] Description 12/30/2025 9:00 AM EDT Ancillary Procedure [facility] Medicine Specialties [address], [address] [place] [address] 12/30/2025 10:30 AM EDT Office Visit [facility] [address], [address] [place] [address] Kamini Fu, DO [address] [place] [address] 12/30/2025 11:20 AM EDT Office Visit [facility] [address], [address] [place] [address] Bridget Bhat, DO [address] [place] [address] documented as of this encounter Visit Diagnoses Diagnosis Seropositive rheumatoid arthritis of multiple sites (CMS/HCC) documented in this encounter Additional Health Concerns Assessment Noted Time A fall risk assessment has been complete d for the patient 03/18/2025 9:35 AM EDT A Body Mass Index follow-up plan has been documented for the patient 03/18/2025 10:34 AM EDT documented as of this encounter Care Teams Ethylene Plant Helper Relationship Specialty Start Date End Date Eben Liu MD [address] [place] [address] PCP - General Internal Medicine 12/19/23 documented as of this encounter
--- OUTSIDE RECORDS SUMMARY | 2025-08-01 10:40 | XMS_ITS | Clinical Summary ---
Author Organization [facility] Address [address] [place] [address] Care Team Providers Care Umbrella Cutter Name Role Phone Eben Liu MD Primary Care Provider [phone] Allergies Active Allergy Reactions Criticality Noted Date [...] Telephone [facility] Specialties [address], [address] [place] [address] Bridget Bhat DO 07/27/2025 11:15 AM EST Office Visit [facility] [address], [address] [place] [address] Bridget Bhat DO Rheumatoid arthritis involving multiple sites with positive rheumatoid factor ([facility]) (Primary Dx); Seropositive rheumatoid arthritis of multiple sites ([facility]); High risk medication use; ILD (interstitial lung disease) ([facility]); Cerebrovascular accident (CVA), unspecified mechanism ([facility]/HCC) 07/27/2025 9:00 AM EST Office Visit [facility] Specialties [address], [address] [place] [address] Kamini Fu DO Chronic hypoxemic respiratory failure (Primary Dx); 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); High risk medication use; ANDRES (obstructive sleep apnea); Rheumatoid arthritis involving multiple sites with positive rheumatoid factor ([facility]); Bronchiectasis with acute lower respiratory infection; Pulmonary fibrosis 07/27/2025 Orders Only [facility] Specialties [address], [address] [place] [address] Marley Brown MD Neutropenia, unspecified type (CMS/[facility]) (Primary Dx) 07/27/2025 Telephone [facility] [address] [place] [address] Jazzy Lui, electric meter repairer helper 07/27/2025 Orders Only [facility]ties [address], [address] [place] [address] Elroy Rosenthal MD ILD (interstitial lung disease) ([facility]) (Primary Dx); Dyspnea, unspecified 07/27/2025 Travel 07/23/2025 Orders Only External Location [address] [place] [address] Provider, External 07/23/2025 Orders Only External Location [address] [place] [address] Provider, External 07/06/2025 Orders Only [facility] [address], [address] [place] [address] Bridget Bhat DO ILD (interstitial lung disease) ([facility]) (Primary Dx); Rheumatoid arthritis involving multiple sites with positive rheumatoid factor ([facility]) 06/20/2025 Orders Only [facility] 0 [facility], [address] [place] [address] Provider, Historical 06/08/2025 Telephone [facility] [address] [place] [address] Ananya Rubio, PharmD 06/02/2025 Telephone [facility] Specialties 0 [facility], [address] [place] [address] Bridget Bhat DO from Last 3 Months Immunizations Immunization Administration Dates Next Due Influenza, High-dose, Split Virus, Trivalent, Injectable, preservative free 06/01/2025,06/23/2024,10/14/2018 Influenza, high-dose, quadrivalent 10/14/2018 Influenza, injectable, quadrivalent 05/07/2017 Influenza, injectable, quadr ivalent, preservative free 07/02/2023,07/08/2019 Influenza, recombinant, quad rivalent, injectable, preservative free 07/14/2020 Epuramat-BioNTGOQii COVID-19 Vac cine (Jack Cap) 12+ years [...] Procedure [facility] [address], [address]nd [place] [address] 12/30/2025 10:30 AM EDT Office Visit [facility] [address], [address]nd [place] [address] CamKamini santana, DO [address] [place] [address] 12/30/2025 11:20 AM EDT Office Visit [facility] [address], [address] [place] [address] Bridget Bhat, DO [address] [place] [address] Health Maintenance Due Date Last Done Comments [facility]-Bone Density Scan 1958 [facility]-Medicare Annual Wellness (AWV) 1958 [facility]-/Child/Adol SDOH Screenings 1958 Diabetes: Dental Exam 1968 [facility]- SDOH Screenings 1976 [facility]-Adult SDOH Screenings 1976 CT Colonography 2003 Colonoscopy 2003 FIT-DNA 2003 FIT 2003 FOBT 2003 Sigmoidoscopy 2003 [facility]-Colorectal Cancer Screening 2003 [facility]-Breast Cancer Screening 2008 [id number] Vaccine (2 - Pfizer risk series) 04/24/2022 [...] PM EST [facility] Platelet Estimate Platelet smear estimate consistent with automated count LAB HEMATOLOGY METHOD 07/27/2025 4:38 PM EST [facility] Blood Venous blood specimen / Unknown Venipuncture / Unknown 07/27/2025 12:43 PM EST 07/27/2025 12:43 PM EST us Bridget Antic DO LAB BLOOD ORDERABLES Final Resu lt [facility] [address] [place] [address] * (ABNORMAL) Manual Differential (07/27/2025 12:43 PM EST) Blasts % 0 % LAB HEMATOLOGY METHOD 07/27/2025 4:38 PM EST [facility] Promyelocytes % 0 % LAB HEMATOLOGY METHOD 07/27/2025 4:38 PM EST [facility] Myelocytes % 0 % LAB HEMATOLOGY METHOD 07/27/2025 4:38 PM EST [facility] Metamyelocytes % 1 % LAB HEMATOLOGY METHOD 07/27/2025 4:38 PM EST [facility] Neutrophils % 0 % LAB HEMATOLOGY METHOD 07/27/2025 4:38 PM EST [facility] Lymphocytes % 60 % LAB HEMATOLOGY METHOD 07/27/2025 4:38 PM EST [facility] Reactive Lymphocytes % 4 % LAB HEMATOLOGY METHOD 07/27/2025 4:38 PM EST [facility] Monocytes % 33 % LAB HEMATOLOGY METHOD 07/27/2025 4:38 PM EST [facility] Eosinophils % 1 % LAB HEMATOLOGY METHOD 07/27/2025 4:38 PM EST [facility] Basophils % 1 % LAB HEMATOLOGY METHOD 07/27/2025 4:38 PM EST [facility] Blasts Absolute LAB HEMATOLOGY METHOD 07/27/2025 4:38 PM EST [facility] Promyelocytes Absolute LAB HEMATOLOGY METHOD 07/27/2025 4:38 PM EST [facility] Myelocytes Absolute LAB HEMATOLOGY METHOD 07/27/2025 4:38 PM EST [facility] Metamyelocytes Absolute 0.06 10*3/uL LAB HEMATOLOGY METHOD 07/27/2025 4:38 PM EST [facility] Neutrophils Absolute 0.00(LL) 1.60 - 6.10 10*3/uL LAB HEMATOLOGY METHOD 07/27/2025 4:38 PM EST [facility] Lymphocytes Absolute 3.35 1.20 - 3.90 10*3/uL LAB HEMATOLOGY METHOD 07/27/2025 4:38 PM EST [facility] Reactive Lymphocytes Absolute 0.22 10*3/uL LAB HEMATOLOGY METHOD 07/27/2025 4:38 PM EST [facility] Monocytes Absolute 1.84(H) 0.30 - 0.90 10*3/uL LAB HEMATOLOGY METHOD 07/27/2025 4:38 PM EST [facility] Eosinophils Absolute 0.06 0.00 - 0.50 10*3/uL LAB HEMATOLOGY METHOD 07/27/2025 4:38 PM EST [facility] Basophils Absolute 0.06 0.00 - 0.10 10*3/uL LAB HEMATOLOGY METHOD 07/27/2025 4:38 PM EST [facility] Blood Venous blood specimen / Unknown Venipuncture / Unknown 07/27/2025 12:43 PM EST 07/27/2025 12:43 PM EST us Bridget Bhat DO LAB BLOOD ORDERABLES Final Resu lt Performing Organization Address City/State/[facility] Co de Phone Number [facility] [address] [place] [address] * (ABNORMAL) IG Profile (07/27/2025 12:43 PM [...] ORDERABLES Final Resu lt Performing Organization Address [facility]/ZIP Co de Phone Number [facility] [address] [place] [address] * N-Terminal Probnp, Plasma (07/27/2025 12:43 PM EST) N-Terminal, PROBNP, Plasma 269 0 - 899 pg/mL 07/27/2025 3:12 PM EST [facility] Blood Venous blood specimen / Unknown Venipuncture / Unknown 07/27/2025 12:43 PM EST 07/27/2025 12:43 PM EST Elroy Rosenthal MD LAB BLOOD ORDERABLES Final R esult Performing Organization Address [facility] Co de Phone Number [facility] [address] [place] [address] * (ABNORMAL) Sedimentation Rate, Automated (07/27/2025 12:43 PM EST) Sedimentation Rate 53(H) <30 mm/hr 2024 2:52 PM EST [facility] Blood Venous blood specimen / Unknown Venipuncture / Unknown 07/27/2025 12:43 PM EST 07/27/2025 12:43 PM EST Bridget Bhat DO LAB BLOOD ORDERABLES Final Resu lt Performing Organization Address City/[facility]/ZIP Co de Phone Number [facility] [address] [place] [address] * (ABNORMAL) CBC and Differential (07/27/2025 12:43 [...] WBCs LAB HEMATOLOGY METHOD 07/27/2025 4:38 PM [facility] Differential Type Manual LAB HEMATOLOGY METHOD 07/27/2025 4:38 PM [facility] Blood Venous blood specimen / Unknown Venipuncture / Unknown 07/27/2025 12:43 PM EST 07/27/2025 12:43 PM EST [facility] - 07/27/2025 4:38 PM EST [...] Immature Granulocytes is no longer being reported. [facility] LAB BLOOD ORDERABLES Final Resu lt Performing Organization Address [facility]/ZIP Co de Phone Number [facility] [address] [place] [address] * (ABNORMAL) C-Reactive Protein, Plasma (07/27/2025 12:43 [...] disease risk order high sensitivity CRP (CRPH). [employer] DO LAB BLOOD ORDERABLES Final Resu lt Performing Organization Address [facility] Co de Phone Number [facility] [address] [place] [address] * (ABNORMAL) Comprehensive Metabolic Panel, Plasma (07/27/2025 [...] Resu lt [facility] [address] [place] [address] * CT THORACIC OUTSIDE IMAGES (07/23/2025 10:17 [...] <6.0% Children and Adolescents <7.5% . Source: [employer]. Standards of medical care in [...] Health Maintenance Insurance MEDICARE MEDICARE Care Teams Umbrella Cutter Relationship Specialty Start Date End Date Eben Liu MD [address] [place] [address] PCP - General Internal Medicine 12/19/23
--- OUTSIDE RECORDS SUMMARY | 2025-08-01 10:40 | XMS_ITS | Encounter Summary ---
Author Organization Healthcare Address [address] [place] [address] Care Team Providers Care Vehicle Return Associate Name Role Phone Eben Liu MD Primary Care Provider [phone] Encounter Details Date Type Department Care Team (Late st Contact Info) Description 07/27/2025 Telephone [facility] [address] [place] [address] Jazzy Lui, gauge inspector None None Social History Tobacco Use Types [...] Description 12/30/2025 9:00 AM EDT Ancillary Procedure [facility] Medicine Specialties [address], [address]nd [place] [address] 12/30/2025 10:30 AM EDT Office Visit [facility] Medicine [facility] [address], [address] [place] [address] CamacKamini R, DO [address] [place] [address] 12/30/2025 11:20 AM EDT Office Visit [facility] [address], [address] [place] [address] Bridget Bhat, DO [address] [place] [address] documented as of this encounter Visit Diagnoses [...] documented as of this encounter Care Teams Vehicle Return Associate Relationship Specialty Start Date End Date Eben Liu MD [address] [place] [address] PCP - General Internal Medicine 12/19/23 documented as of this encounter
--- OUTSIDE RECORDS SUMMARY | 2025-08-01 10:40 | XMS_ITS | Encounter Summary ---
Author Organization [facility] Address [address] [place] [address] Care Team Providers Care Waste Treatment Operator Name Role Phone Eben Liu MD Primary Care Provider [phone] Encounter Details Date Type Department Care Team (Late st Contact Info) Description 06/28/2025 Patient rounding ([facility] only) [facility] NE[facility] [address] [facility] [address] [place] [address] Rufina Morataya RegSched Rep Social History Tobacco [...] Rufina I am with E [facility] NEUR[facility] [address] [address] . Before we get started [...] Description 09/27/2025 11:30 AM EST Office Visit [facility] [address] [facility] [address] [place], [place] [id number] Margarita Blanc APRN [address] [facility] [address] [address] documented as of this encounter Visit Diagnoses Not on filedocumented in this encounter Care Teams Waste Treatment Operator Relationship Specialty Start Date End Date Eben Liu MD [address] [place] [facility] [address] [facility] [address] [place] [address] PCP - General Adolescent Medicine 04/12/25 documented as of this encounter
--- OUTSIDE RECORDS SUMMARY | 2025-08-01 10:40 | XMS_ITS | Encounter Summary ---
Author Organization Healthcare Address [address] [place] [address] Care Team Providers Care Athletic Agent Name Role Phone Eben Liu MD Primary Care Provider [phone] Encounter Details Date Type Department Care Team (Late st Contact Info) Description 07/27/2025 Orders Only [facility] Medicine Specialties [address], [address] [place] [address] Marley Brown MD [address] [place] [address] Neutropenia, unspecified type (CMS/HCC) (Primary [...] Procedure [facility] Medicine Specialties [address], [address] [place] [address] 12/30/2025 10:30 AM EDT Office Visit [facility] [address], [address]nd [place] [address] Camac, Kamini R, DO [address] [place] [address] 12/30/2025 11:20 AM EDT Office Visit [facility] [address], [address] [place] [address] AnticBridget, DO [address] [place] [address] Scheduled Orders Name Type Priority [...] documented as of this encounter Care Teams Athletic Agent Relationship Specialty Start Date End Date Eben Liu MD [address] [place] [address] PCP - General Internal Medicine 12/19/23 documented as of this encounter
--- OUTSIDE RECORDS SUMMARY | 2025-08-01 10:40 | XMS_ITS | Encounter Summary ---
Author Organization Healthcare Address [address] [place] [address] Care Team Providers Care Heating And Ventilating Drafter Name Role Phone Eben Liu MD Primary Care Provider [phone] Encounter Details Date Type Department Care Team (Late st Contact Info) Description 01/19/2024 Orders Only External Location [address] [place] [address] Provider, External Social History Tobacco Use Types [...] Description 12/30/2025 9:00 AM EDT Ancillary Procedure [facility] Medicine Specialties [address], [address] [place] [address] 12/30/2025 10:30 AM EDT Office Visit [facility] Medicine Specialties [address], [address] [place] [address] CamKamini santana Rahul, DO [address] [place] [address] 12/30/2025 11:20 AM EDT Office Visit [facility] Medicine Specialties [address], [address] [place] [address] Bridget Bhat, DO [address] [place] [address] documented as [...] documented as of this encounter Care Teams Heating And Ventilating Drafter Relationship Specialty Start Date End Date Eben Liu MD [address] [place], [place] [address] PCP - General Internal Medicine 12/19/23 documented as of this encounter
--- OUTSIDE RECORDS SUMMARY | 2025-08-01 10:40 | XMS_ITS | Encounter Summary ---
Author Organization Healthcare Address [address] [place] [address] Care Team Providers Care Director Corporate Communications Name Role Phone Eben Liu MD Primary Care Provider [phone] Encounter Details Date Type Department Care Team (Late st Contact Info) Description 12/25/2023 Orders Only External Location [address] [place] [address] Provider, External Social History Tobacco Use Types [...] Procedure [facility] [address], [address] [place] [address] 12/30/2025 10:30 AM EDT Office Visit [facility] [address], [address] [place] [address] CamKamini santana R, DO [address] [place] [address] 12/30/2025 11:20 AM EDT Office Visit [facility] [address], [address] [place] [address] Bridget Bhat, DO [address] [place] [address] documented as of this encounter [...] documented as of this encounter Care Teams Director Corporate Communications Relationship Specialty Start Date End Date Eben Liu MD [address] [place], [place] [address] PCP - General Internal Medicine 12/19/23 documented as of this encounter
[2025-08-01 11:04] LABS: Total Cells Counted 100
[2025-08-01 11:05] LABS: RBC Morphology Normal
== END 2025-08-01 23:59 | disposition home or self-care (01) ==
LOC: LAB 10:19
PROVIDERS: PCP Internal Medicine Adolescent Medicine; Visit Provider Internal Medicine Medical Oncology
DX: D70.9 Neutropenia, unspecified (principal)
CPT/HCPCS: 36415; 85007; 85025

== ENCOUNTER 2025-08-09 13:05 | Outpatient (CLI) | payer MEDICARE, SELFPAY ==
--- OUTSIDE RECORDS SUMMARY | 2025-06-27 10:00 | XMS_ITS | Encounter Summary ---
Author Organization [facility] Address [address] [place] [address] Care Team Providers Care Dowel Pin Worker Name Role Phone Eben Liu MD Primary Care Provider [phone] Reason for Visit * Reason Comments Establish Care * Consultation (Routine) - Closed Specialty Diagnoses / Procedures Referred By Contac t Referred To Contact Neurology Diagnoses CVA (cerebral vascular accident) Lele Rothman MD [address] [facility] [address] [place] [address] Phone: tel: fax: Margarita Blanc APRN [address] [place] [address] Phone: tel: fax: Referral ID Status Reason Start Date Expiration Date Visits Re quested Visits Authorized [id number] Closed 04/14/2025 07/14/2026 1 1 Encounter Details Date Type Department Care Team (Late st Contact Info) Description 06/27/2025 11:00 AM EDT Office Visit [facility] [address] [facility] [address] [place] [address] Margarita Blanc, ROGER [address] [place] [address] History of TIA (transient ischemic attack) (Primary [...] CAD, RA, COPD, T2DM. She presented to [facility] ED on 04/11/25 for presyncopal event and then b ecame dizzy and had a left sided headache with left blurry vision. They treated her with migraine cocktail, vision somewhat improved. CT head revealed no acute intracranial normality. 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 She is noted to have a white [...] in upper and lower extremities. Coordination Right: Tmmrql-st-crup normal.Left: Pnwkbr-ui-higb normal. No obvious dysmetria . Gait Normal gait.Casual gait is normal including stance, stride, and arm swing. Modified [place] Score: 2 0 No Symptoms 1 No [...] MD 04/13/2025 2:53 AM EDT Workstation ID: [id number] CT Angiogram Chest Result Date: 04/12/2025 Impression: 1.No evidence of pulmonary embolism nor other acute cardiopulmonary process. 2.Nonspecific interstitial lung changes with a degree of fibrosis most pronounced in the periphery of the lungbases. Electronically Signed: Artem Fox MD 04/12/2025 5:13 PM EDT Workstation ID: [id number] XR Chest 1 View Result Date: 04/12/2025 Impression: Scattered interstitial coarsening with interspersed airspace opacities, which could reflect pneumonia with possible component of underlying chronic lung disease. Pulmonary edema is a lesslikely differential consideration. No prior exams available for comparison. Electronically Signed: Lore Chávez MD 04/12/2025 7:12 AM EDT Workstation ID: [id number] Laboratory Results: Hemoglobin Date Value Ref Range [...] wear her CPAP consistently at home, her quality audit representative is aware -We discussed how untreated ANDRES contributes to resistant hypertension and inability to lose weight -I have encouraged her to follow-up with her quality audit representative to discuss other options Discussed the importance [...] 3 months (around 09/27/2025). Margarita Blanc APRN [facility] [place] Stroke [1] Social History Socioeconomic History [...] mouth Every Morning Before Breakfast., Disp:, Rfl: Dreiccdnmnf-Erdtujngk-Mgxmaf (Trelegy Ellipta) 100-62.5-25 MCG/ACT inhaler, Inhale 1 [...] Description 09/27/2025 11:30 AM EST Office Visit [facility] [address] [place] [address] Margarita Blanc APRN [address] [facility] [address] [address] documented as of this encounter [...] (pediatric) documented in this encounter Care Teams Dowel Pin Worker Relationship Specialty Start Date End Date Eben Liu MD [address] [facility] [address] [place] [address] PCP - General Adolescent Medicine 04/12/25 documented as of this encounter
--- OUTSIDE RECORDS SUMMARY | 2025-07-27 09:00 | XMS_ITS | Encounter Summary ---
Author Organization [facility] Address [address] [place] [address] Care Team Providers Care Software Sales Executive Name Role Phone Eben Liu MD Primary Care Provider [phone] Reason for Referral * Medications - Authorized Specialty Diagnoses / Procedures Referred By Sallie latif Referred To Contact Diagnoses Pulmonary fibrosis Kamini Fu DO [address] [place] [address] Phone: tel: fax: Referral ID Status Reason Start Date Expiration Date V isits Requested Visits Authorized [id number] Authorized 07/13/2025 09/07/2099 1 1 * Consultation (Routine) - Authorized Specialty Diagnoses / Procedures Referred By Sallie latif Referred To Contact Diagnoses 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) High risk medication use Chronic hypoxemic respiratory failure ANDRES (obstructive sleep apnea) Rheumatoid arthritis involving multiple sites with positive rheumatoid factor (CMS/HCC) Kamini Fu DO [address] [place] [address] Phone: tel: fax: Referral ID Status Reason Start Date Expiration Date V isits Requested Visits Authorized [id number] Authorized 07/27/2025 01/26/2027 1 1 Reason for Visit * Reason Comments Follow-up Chronic hypoxemic re spiratory failure (CMS/HCC) Shortness of Breath Encounter Details Date Type Department Care Team (Late st Contact Info) Description 07/27/2025 9:00 AM EST Office Visit [facility] [address] [place] [address] Kamini Fu DO [address] [place] [address] Chronic hypoxemic respiratory failure (Primary Dx); 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); High risk medication use; ANDRES (obstructive sleep apnea); Rheumatoid arthritis involving multiple sites with positive rheumatoid factor (CMS/HCC); Bronchiectasis with acute lower respiratory infection; Pulmonary fibrosis Social History Tobacco Use Types Packs/Day Years Used Date Smoking Tobacco: Former Cigarettes 1.5 20 1 982 - 2001 Pipe Passive Smoke Exposure: Past Smokeless Tobacco: Never Comments:extensive second jennings nd exposure in childhood, started smoking 19ys Alcohol Use Standard Drinks/Week Comments Yes 0 (1 standard drink = 0.6 oz pur e alcohol) PHQ-2 Answer Date Recorded Patient Health Questionnaire-2 Score 0 07/27/2025 PHQ-9 Answer Date Recorded Patient Health Questionnaire-9 Score 2 07/27/2025 AUDIT-C Answer Date Recorded Q1: How often [...] Sign Reading Time Taken Comments Blood Pressure 133/79 07/27/2025 9:08 AM EST Pulse 89 07/27/2025 9:08 AM EST Temperature 36.5 C (97.7 F) 07/27/2025 9:08 AM EST Respiratory Rate - - Oxygen Saturation 97% 07/27/2025 9:08 AM EST 2 lpm Inhaled Oxygen Concentration - - Weight 85.6 kg (188 lb 11.4 oz) 07/27/2025 9:08 AM EST Height 160 cm (5' 3 ) 07/27/2025 9:08 AM EST Body Mass Index 33.43 07/27/2025 9:08 AM EST documented in this encounter Functional Status * Over the past 2 weeks, how often have you been bothered by any of the following problems? Question Answer Date of Assessment Author Little interest or pleasure in doing things Not at all 07/27/2025 11:45 AM Jennifer Dickerson Feeling down, depressed, or hopeless Not at all 07/27/2025 11:45 AM Jennifer Dickerson Patient Health Questionnaire -2 Score 0 07/27/2025 11:45 AM Jennifer Dickerson * Question Answer Date of Assessment Author Trouble falling or staying asleep, or sleeping too much Several days 07/27/2025 11:45 AM Jennifer Dickerson Feeling tired or having james le energy Several days 07/27/2025 11:45 AM Jennifer Dickerson Poor appetite or overeating Not at all 07/27/2025 11 :45 AM Jennifer Dickerson Feeling bad about yourself - or that you are a failure or have let yourself or your family down Not at all 07/27/2025 11:45 AM Jennifer Burch Trouble concentrating on thi ngs, such as reading the newspaper or watching television Not at all 07/27/2025 11:45 AM Jennifer Dickerson Moving or speaking so slowly that other people could have noticed? Or the opposite - being so fidgety or restless that you have been moving around a lot more than usual. Not at all 07/27/2025 11:45 AM Jennifer Dickerson Thoughts that you would be better off or hurting yourself in some way Not at all 07/27/2025 11:45 AM Jennifer Dickerson Patient Health Questionnaire -9 Score 2 07/27/2025 11:45 AM Jennifer Dickerson * How difficult have these problems made it for you to do your work, take care of things at home, or get along with other people? Answer Date of Assessment Author Not difficult at all 07/27/2025 11:45 AM Jennifer Burch documented as of this encounter Miscellaneous Notes * Progress Notes - Marcus Stevens MD - 07/27/2025 9:00 AM EST Pulmonary Interstitial Lung Disease (ILD) Subspecialty Clinic Note Karyn Sanz is a 64 y.o. female who presents to pulmonary outpatient ILD subspecialty clinic for ongoing care for dyspnea. 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 In 2021, she completed a pulmonary rehab program. Despite aggressive therapy, she has had ongoing arthropathy and ongoing GGOs on pulmonary imaging. Today: Since her last visit in our clinic 06/23/2024 she has had one visit to 04/2025 for syncopal episode and one admission to 07/23- 07/24/2025 for AHRF. Reports good adherence to inhaler therapy. Breathing had been at baseline p/t recent admission to [facility]. Continues to use portable O2 and concentrator when at home, 1-2L normally. Has lost 8lbs on Mounjaro since her last visit with us. Taking mycophenolate 2 pills (720mg) BID, tolerating. She continues to follow with rheumatology and was last seen in their clinic 03/2025. Denies RA flares. Is not using CPAP regularly. 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 She had a cough and increased sputum production. She also noted dyspnea and feeling like chest pressure. Hypoxic to 82% at home. Normally on 1-2L, needed 4L during this. Was given levofloxacin 750mg and prednisone 20mg. Modified Medical Research [place] Dyspnea Scale 0 ???I only get breathless with strenuous exercise?? 1 ???I get short of breath when hurrying while walking on level ground or while walking up a slighthill?? 2 ???I walk slower than people of the same age on level ground because of breathlessness, or I haveto stop for breath when walking at my own pace on level ground?? 3 ???I stop to catch my breath after walking about 100 yards or after a few minutes on level ground?? 4 ???I am too breathless to leave the house?? or ???I am breathless when dressing?? 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 ILD Risk Factors: Drugs - amiodarone or dronaderone exposure - nitrofurantion / macrobid exposure - chemotherapy or radiation therapy +known RA, sees a lace mender - no lace mender visits or rheumatologic medications exposure - oily nose drops or mineral oil use - exposure to minocycline Hypersensitivity +chickens in the remote past, had a parrot in childhood +++prior quail exposure - bird exposure +has a jacuzzi, no standing water, has an outdoor pool - hot tub or jaccuzi +purifier in home - humidifier or sauna - no home mold or water damage - down products in the home CTD - rashes - dry mouth, dental disease - dry eyes ++ - joint pain +++ - Raynaud's - skin tightening or thickness +++ history of pill esophagitis - esophageal dysfunction / CINTHYA - history of inflammatory bowel disease - psoriasis - myalgias Occupational - occupational exposures (silica, wood dust, welding, asbestos,etc) - work in a high-risk industry (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, 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, farming, ryan, etc) - service ++ 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, 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 - high-risk hobbies (glassmaking, woodworking, etc) Idiopathic/Smoking Related +++ - CINTHYA +++ - smoking - family history of ILD Past Medical History: Diagnosis Date Chronic hypoxemic respiratory failure Coronary artery disease Diabetes mellitus Hypertension ILD (interstitial lung disease) (CMS/HCC) 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 Morbid obesity ([facility]) Obesity ANDRES on CPAP Personal history of other diseases of the respiratory system History of asthma Personal history of pneumonia (recurrent) History of pneumonia Rheumatoid arthritis involving multiple sites with positive rheumatoid factor ([facility]) since age 36 Sinusitis 06/23/24 UTI (urinary tract infection) 06/23/24 Past Surgical History: Procedure Laterality Date APPENDECTOMY N/A Appendectomy from [facility] HYSTERECTOMY N/A Hysterectomy from [facility] TUBAL LIGATION N/A Tubal Ligation from [facility] Family History Problem Relation Name Age of Onset Lung cancer Mother Lung cancer Father COPD Sister No Known Problems Sister No Known Problems Brother Lung cancer Other Breast cancer Other Conversions - Other Other FHx: mental illness No Known Problems Son Irritable bowel syndrome Daughter Social History Socioeconomic History Marital status: Spouse name: Not on file Number of children: Not on file Years of education: Not on file Highest education level: Not on file Occupational History Not on file Tobacco Use Smoking status: Former Current packs/day: 0.00 Average packs/day: 1.5 packs/day for 20.0 years (30.0 ttl pk-yrs) Types: Cigarettes, Pipe Start date: 1981 Quit date: 2001 Years since quittin.8 Passive exposure: Past Smokeless tobacco: Never Tobacco comments: extensive second hand exposure in childhood, started smoking 19ys Vaping Use Vaping status: Never Used Substance and Sexual Activity Alcohol use: Yes Alcohol/week: 0.0 - 1.0 standard drinks of alcohol Drug use: Never Sexual activity: Not on file Other Topics Concern Not on file Social History Narrative Marital Status: Unemployed Social Drivers of Health Financial Resource Strain: Not on file Food Insecurity: Not on file Transportation Needs: Not on file Physical Activity: Not on file Stress: Not on file Social Connections: Not on file Intimate Partner Violence: Not At Risk (04/12/2025) Received from [facility] Abuse Screen Feels Unsafe at Home or Work/School: no Feels Threatened by Someone: no Does Anyone Try to Keep You From Having Contact with Others or Doing Things Outside Your Home?: no Physical Signs of Abuse Present: no Housing Stability: Unknown (04/12/2025) Received from [facility] Housing Stability Current Living Arrangements: home Potentially Unsafe Housing Conditions: Not on file Review of Systems Constitutional: Negative for activity change (increased activity). HENT: Negative. Respiratory: Positive for shortness of breath. Negative for cough. Cardiovascular: Negative. Gastrointestinal: Positive for constipation and nausea. GERD Genitourinary: Negative for dysuria, flank pain, frequency and urgency. Musculoskeletal: Positive for arthralgias, back pain and joint swelling. Skin: Negative for rash. Allergic/Immunologic: Positive for immunocompromised state. Neurological: Negative. Psychiatric/Behavioral: Negative. Objective: Physical Exam: Visit Vitals BP 133/79 (BP Location: Right arm, Patient Position: Sitting) Pulse 89 Temp 36.5 ??C (97.7 ??F) (Oral) Ht 1.6 m (5' 3 ) Wt 85.6 kg (188 lb 11.4 oz) SpO2 97% Comment: 2 lpm BMI 33.43 kg/m?? Physical Exam Vitals reviewed. Constitutional: Appearance: Normal appearance. She is not ill-appearing. HENT: Right Ear: External ear normal. Left Ear: External ear normal. Nose: Nose normal. Mouth/Throat: Mouth: Mucous membranes are moist. Eyes: General: No scleral icterus. Conjunctiva/sclera: Conjunctivae normal. Cardiovascular: Rate and Rhythm: Normal rate and regular rhythm. Pulmonary: Effort: Pulmonary effort is normal. Breath sounds: No wheezing or rhonchi. Comments: Bilateral inspiratory crackles, nonproductive cough present. No clubbing. Abdominal: General: There is no distension. Musculoskeletal: General: No swelling. Cervical back: Neck supple. Right lower leg: Edema (+1) present. Left lower leg: Edema (+1) present. Comments: DIP nodules present Skin: General: Skin is warm and dry. Neurological: Mental Status: She is alert. Mental status is at baseline. Psychiatric: Mood and Affect: Mood normal. Thought Content: Thought content normal. Judgment: Judgment normal. Data: Data Re- Reviewed Personally By Me This Visit: 04/04/2020 CT Chest: bilateral reticulations, air trapping, bronchiectasis / bronchiolectasis, and scant honeycombing. I have personally reviewed the images associated with this study. The study reading reported here reflects my personal read. 06/2019 Echo: EF 55%, RV normal with normal wall thickness 06/05/2021 PFT: FVC 1.02L TLC 2.28L DLCO 7.37 Interpretation by me today: severe restriction with severely-reduced diffusion capacity 6MW: 98% on 4L NC, walked 285 meters, melissa 87% on 5L 09/18/2022 Mycophenolate level 0.8 micrograms/mL (goal range 1-3) 02/20/2022 CTA Chest: negative for PE, patchy moderate bilateral pulmonary opacities 10/03/21 Pharmacologic Nuclear Medicine Stress Test: normal 09/2021 CT Chest: bilateral diffuse airway-centered ILD bronchiolitis / bronchiectasis with chronic fibrotic changes, air trapping, micronodules, and calcified lymph nodes. No honeycombs. I have personally reviewed the images associated with this study. The study reading reported here reflects my personal read. 01/03/2023 PFTs: FVC 0.97L 33% FEV1/FVC 94% TLC 2.29L 46.9% DLCO 6.25 33% Interpretation by me today: stable chronic severe restriction with a severely- reduced diffusion capacity 02/10/2024 CT CHEST: bilateral diffuse airway-centered ILD bronchiolitis / bronchiectasis with chronic fibrotic changes, micronodules, and calcified lymph nodes. Less air trapping than 09/2021 imaging. No honeycombs. I have personally reviewed the images associated with this study. The study reading reported here reflects my personal read. 06/23/24 PFTs: FVC 1.09L 38%, FEV1 0.97, ratio 88%, TLC 2.34L 48%, DLCO 7.89 41%. Interpretation byme today: stable chronic moderate restriction with severely reduced diffusion capacity. 06/23/24 MultiOx: desat to 82% with exertion on room air. Required 2L NC to recover spO2 >88% with exertion. New Data Reviewed Personally By Me This Visit: 07/27/2035 PFTs: not obtained today due to acute flare 07/2025 OSH labs demonstrate ANC 500, WBC 5, Hgb 11.8, BNP 132, AST 28, ALT 31 04/12/2025 TTE: EF 70%, grade 1 diastolic dysfunction, RVSP 13mmHg. Moderate . 07/2025 CT Chest: bilateral BIP with superimposed increase in GGOs, consistent with ILD in flare vsother etiologies. Worsening fibrotic change with bronchiolectasis. I have personally reviewed the images associated with this study. The study reading reported here reflects my personal read. Assessment and Plan: 64 y.o. F with: #) Chronic Hypoxemic Respiratory Failure due to SARD-ILD due to RA - the patient is medically benefiting from home and ambulatory oxygen therapy and the therapy is medically necessary. Requires 2L NC with exertion and sleep. DME oxygen therapy ordered. - the patient is tolerating MMF and Rituximab and has needed PRN prednisone bursts as well - Continue myfortic at 720mg bid, would not increase dose - Continue Breztri. Encouraged to use twice daily. Patient has been provided spacer in past and received proper inhaler technique education - Encouraged ongoing weight loss and exercise efforts - Lung transplant discussed, patient declines referral at this time but encouraged to continue to consider this possible therapy. - Discussion about initiation of nintedanib today given AE-ILD and progressive disease on treatment, patient is agreeable to start. - Ordered PFTs and MultiOx to be completed at next visit - Counseled on spO2 goal 88-92% - Follow up in clinic in 3 months #) ANDRES on CPAP - Patient reports she has not been using her CPAP nightly as she has difficulty with it secondary to neck pain - Following with Sleep Medicine, has not been seen recently and will make new appt - Counseled and encouraged importance of CPAP use and follow-up with sleep medicine #) Health Maintenance - the patient is up to date on annual flu vaccine - the patient is fully vaccinated for RSV - the patient is not fully vaccinated for COVID, she declines booster at this time - the patient is not a candidate for LDCT screening for lung cancer - the patient is fully vaccinated for pneumococcal disease and vaccinations do not need to be repeated - Patient reports having received both shingles vaccines, one in pulmonary clinic and one with her outside PCP The patient was given instructions to return to the clinic when testing is complete. Orders Placed This Encounter Procedures AFB Culture, Respiratory Source and Acid Fast Stain Standing Status: Future Expected Date: 07/27/2025 Expiration Date: 01/24/2027 Release to patient in [facility]: Immediate Cystic Fibrosis Respiratory Culture and Gram Stain This patient has been ordered a cystic fibrosis respiratory culture. Although they do not have cystic fibrosis, this patient DOES have severe bronchiectasis, and use of the cystic fibrosis culture protocol is medically necessary. Please contact me with questions. Standing Status: Future Expected Date: 07/27/2025 Expiration Date: 01/24/2027 Release to patient in [facility]: Immediate [1] Follow Up Pulm Standing Status: Future Expected Date: 10/27/2025 Expiration Date: 08/26/2026 Referral Priority: Routine Referral Type: Consultation Number of Visits Requested: 1 Pulmonary function testing With multiox please Standing Status: Future Expected Date: 01/24/2026 Expiration Date: 01/24/2027 Reason for Exam:: ILD Which PFTs would you like to perform?: Full PFT (Spirometry, Lung Volumes and Diffusion Capacity) Type of spirometry:: Without Bronchodilator Multiple Determination Oximetry Standing Status: Future Expiration Date: 01/24/2027 Where will this be performed?: PFT Lab Performed I personally spent a total of 48 minutes in direct care for this patient on the date of service. This time was spent on review of the chart, discussion with other providers, review of notes written by other providers, personal review of images and results of studies, history taking and review, review of systems, discussion with the patient, care planning and coordination, and the making of medical orders. Marcus Stevens MD IM PGY-2 Dr. Kamini Fu DO, [facility] Interstitial Lung Disease Specialty Clinic Chemical Engineering Teacher, Pulmonary and Critical Care Fellowship at the [facility] principal account clerk Cosigned by Kamini Fu DO at 07/27/2025 11:13 AM EST Associated attestation - Kamini Fu DO - 07/27/2025 11:13 AM EST I saw and evaluated the patient with the resident/fellow. I discussed the case with the resident/fellow and agree with the findings and plan as documented. * Progress Notes - Todd Henning, Vicente - 07/27/2025 9:00 AM EST Images from the original note were not included. PharmD Immunosuppressant/Antifibrotic Medication Progress Note Encounter Diagnoses: 1. 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 High risk medication use 3. Chronic hypoxemic respiratory failure (Primary) 4. ANDRES (obstructive sleep apnea) 5. Rheumatoid arthritis involving multiple sites with positive rheumatoid factor (CMS/HCC) 6. Bronchiectasis with acute lower respiratory infection 7. Pulmonary fibrosis Assessment: PharmD provided education on nintedanib (Ofev) including indication, dosing, side effects, monitoring, and other relevant information. PharmD answered any questions or concerns patient had regarding treatment. Labs are appropriate to initiate nintedanib (Ofev) Patient will obtain LFTs Once a month for 3 months then every 3 months thereafter. Patient will call us with any questions or concerns regarding treatment. Karyn is currently taking Myfortic and rituximab and having progression. She will continue on these medications. Labs from [facility] drawn on 07/24/2025 were within range to continue these medications. She is otherwise tolerating the mycophenolate at this time. She will start the Ofev after the holiday and after she has completed her antibiotics and steroids from her recent admission. Plan: START nintedanib (Ofev) 150 mg BID Continue mycophenolate 720 mg BID CONTINUE Rituximab per Rheum (1000 mg day 1 and 15 every 4 months) Follow-up LFTs due in 4 weeks after starting Ofev PharmD follow-up at 2 weeks for tolerability check Thank you for allowing me to participate in the care of this patient. Todd Henning, PharmD Clinical Staff Pharmacist Pulmonary, Critical Care & Sleep Medicine Subjective: History of present illness: Karyn Sanz is a 64 y.o. female who will be initiated on nintedanib (Ofev) for the treatment of Chronic fibrosing interstitial lung diseases with a progressive phenotype and RA-ILD - Rheumatoid Arthritis-Associated Interstitial Lung Disease on 08/2026. She was started on mycophenolate on 06/2024 and Rituximab per Rheum since 2019. I spoke with patient today to provide initial counseling on nintedanib (Ofev) Current therapies: Myfortic and Rituximab Objective: Past Medical History: Past Medical History[1] Current Medications: Encounter Medications[2] Lab Results: Creatinine, Plasma Date Value Ref Range Status 04/13/2025 0.58 0.57 - 1.00 mg/dL Final 04/12/2025 0.59 0.57 - 1.00 mg/dL Final 03/18/2025 0.61 0.60 - 1.10 mg/dL Final AST, Plasma Date Value Ref Range Status 04/12/2025 13 1 - 32 U/L Final 03/18/2025 22 10 - 35 U/L Final 11/05/2024 13 10 - 35 U/L Final ALT, Plasma Date Value Ref Range Status 04/12/2025 13 1 - 33 U/L Final 03/18/2025 20 10 - 35 U/L Final 11/05/2024 16 10 - 35 U/L Final Alkaline Phosphatase, Plasma Date Value Ref Range Status 03/18/2025 113 46 - 142 U/L Final 11/05/2024 143 (H) 46 - 142 U/L Final 07/02/2024 116 46 - 142 U/L Final Total Bilirubin, Plasma Date Value Ref Range Status 04/12/2025 0.3 0.0 - 1.2 mg/dL Final 03/18/2025 0.4 0.2 - 1.1 mg/dL Final 11/05/2024 0.4 0.2 - 1.1 mg/dL Final WBC Count Date Value Ref Range Status 04/13/2025 22.49 (H) 3.40 - 10.80 10*3/mm3 Final 04/12/2025 20.49 (H) 3.40 - 10.80 10*3/mm3 Final 03/18/2025 20.11 (H) 3.70 - 10.30 10*3/uL Final Neutrophils Absolute Date Value Ref Range Status 04/12/2025 17.18 (H) 1.70 - 7.00 10*3/mm3 Final 03/18/2025 13.37 (H) 1.60 - 6.10 10*3/uL Final 11/05/2024 10.69 (H) 1.60 - 6.10 10*3/uL Final HGB Date Value Ref Range Status 04/13/2025 11.8 (L) 12.0 - 15.9 g/dL Final 04/12/2025 13.1 12.0 - 15.9 g/dL Final 03/18/2025 13.0 11.2 - 15.7 g/dL Final HCT Date Value Ref Range Status 04/13/2025 36.9 34.0 - 46.6 % Final 04/12/2025 42.1 34.0 - 46.6 % Final 03/18/2025 41.8 34.0 - 45.0 % Final Platelet Count Date Value Ref Range Status 04/13/2025 385 140 - 450 10*3/mm3 Final 04/12/2025 418 140 - 450 10*3/mm3 Final 03/18/2025 378 (H) 155 - 369 10*3/uL Final Hepatitis B Core Total Antibody IgG,IgM Date Value Ref Range Status 05/10/2020 NEGATIVE Reference Value: Negative Final Hepatitis B Surf Antigen Date Value Ref Range Status 05/10/2020 NEGATIVE Reference Value: Negative Final Hepatitis B Surface Antibody Date Value Ref Range Status 05/10/2020 Final 0.00 NEGATIVE Antibodies to HBsAg are less than 8 International Units/L which indicate they are not detected or are below the protective level for immunity. 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 360 mL 1 albuterol 108 (90 Base) MCG/ACT inhaler Inhale 2 puffs as needed. atorvastatin (Lipitor) 80 MG tablet Take 1 tablet by mouth daily. B-D ULTRAFINE III SHORT PEN 31G X 8 MM misc 4 (four) times a day. use as directed Blood Glucose Monitoring Suppl (FreeStyle Lite) device Inject 1 each under the skin 4 (four) times a day. Sxmcogr-Wncsvbsppam-Ucqjxijbgi (Breztri Aerosphere) 160-9-4.8 MCG/ACT aerosol Inhale 2 puffs 2 (two) times a day. Use with spacer. Rinse mouth with water for 30 seconds and spit after each use to prevent thrush 32.1 g 3 diclofenac (Voltaren) 1 % topical gel Apply 2-4 grams to upper and lower extremities four times a day. (max of 32 grams per day) 400 g 1 doxycycline (Monodox) 100 MG capsule Take 1 capsule by mouth daily. EQ Vegetable Laxative 8.6 MG tablet Take 1 tablet (8.6 mg) by mouth daily. esomeprazole (NexIUM) [address] capsule Take 1 capsule (40 mg) by mouth daily. fluticasone (Flonase) 50 MCG/ACT nasal spray USE 2 SPRAY(S) IN EACH NOSTRIL ONCE DAILY FreeStyle lancets 1 each by Other route 4 (four) times a day. FREESTYLE LITE test strip 1 each by Other route 4 (four) times a day. Insulin Aspart FlexPen 100 UNIT/ML solution pen-injector Inject 20-50 Units under the skin See administration instructions. isosorbide mononitrate ER (Imdur) 30 MG 24 hr tablet Take 1 tablet by mouth every morning. Lantus 100 UNIT/ML injection vial levoFLOXacin (Levaquin) 750 MG tablet Take 1 tablet by mouth daily. lidocaine (Lidoderm) 5 % patch USE 1 PATCH EXTERNALLY ONCE DAILY; LEAVE ON MOST PAINFUL AREA FOR UPTO 12 HOURS loratadine (Claritin) 10 MG tablet Take 1 tablet by mouth daily. metoprolol succinate XL (Toprol-XL) 25 MG 24 hr tablet Take 1 tablet (25 mg) by mouth daily. Mounjaro 10 MG/0.5ML solution pen-injector solution pen-injector Inject 0.5 mL (10 mg) under the skin 1 (one) time per week. (Patient taking differently: Inject 0.75 mL under the skin 1 time per week.) mycophenolate (Myfortic) 360 MG EC tablet Take 2 tablets (720 mg) by mouth 2 (two) times a day before meals. 360 tablet 3 predniSONE (Deltasone) 20 MG tablet Take 1 tablet by mouth daily. riTUXimab (Rituxan) 500 MG/50ML chemo injection Infuse 100 mL (1000mg) intravenously on day 1 and day 15 every 4 months. 200 mL 2 spironolactone (Aldactone) 25 MG tablet Take 1 tablet (25 mg) by mouth daily. Admelog 100 UNIT/ML injection Inject 0.15 mL (15 Units) under the skin 3 (three) times a day. (Patient not taking: Reported on 07/27/2025) Nintedanib Esylate (Ofev) 150 MG capsule Take 150 mg by mouth 2 times a day. 60 capsule 11 ticagrelor (Brilinta) 90 MG tablet Take 1 tablet by mouth 2 times a day. (Patient not taking: Reported on 07/27/2025) [DISCONTINUED] atorvastatin (Lipitor) 40 MG tablet Take 1 tablet (40 mg) by mouth daily. [DISCONTINUED] isosorbide mononitrate ER (Imdur) 60 MG 24 hr tablet Take 1 tablet (60 mg) by mouth daily. No facility-administered encounter medications on file as of 07/27/2025. documented in this encounter Plan of Treatment Upcoming Encounters Date Type Department Care Team (Late st Contact Info) Description 12/30/2025 9:00 AM EDT Ancillary Procedure [facility] Medicine Specialties [address], [address] [place] [phone] 12/30/2025 10:30 AM EDT Office Visit [facility] Medicine Specialties [address], [address] [place] [phone] Kamini Fu, DO [address] [place] [address] 12/30/2025 11:20 AM EDT Office Visit [facility] Medicine [facility] [address], [address] [place] [phone] Bridget Bhat DO [address] [place] [address] Scheduled Orders Name Type Priority Associated Diagnoses Orde r Schedule Pulmonary function testing PFT Routine 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) High risk medication use Chronic hypoxemic respiratory failure ANDRES (obstructive sleep apnea) Rheumatoid arthritis involving multiple sites with positive rheumatoid factor (CMS/HCC) Expected: 01/24/2026, Expires: 01/24/2027 Multiple Determination Oximetry PFT Routine 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) High risk medication use Chronic hypoxemic respiratory failure ANDRES (obstructive sleep apnea) Rheumatoid arthritis involving multiple sites with positive rheumatoid factor (CMS/HCC) 1 Occurrences starting 07/27/2025 until 01/24/2027 AFB Culture, Respiratory Source and Acid Fast Stain Microbiology Routine 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) High risk medication use Chronic hypoxemic respiratory failure ANDRES (obstructive sleep apnea) Rheumatoid arthritis involving multiple sites with positive rheumatoid factor (CMS/HCC) Bronchiectasis with acute lower respiratory infection Expected: 07/27/2025 (Approximate), Expires: 01/24/2027 Cystic Fibrosis Respiratory Culture and Gram Stain Microbiology Routine 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) High risk medication use Chronic hypoxemic respiratory failure ANDRES (obstructive sleep apnea) Rheumatoid arthritis involving multiple sites with positive rheumatoid factor (CMS/HCC) Bronchiectasis with acute lower respiratory infection Expected: 07/27/2025 (Approximate), Expires: 01/24/2027 Scheduled Referrals Name Type Priority Associated Diagnoses Orde r Schedule Follow Up Pulm Outpatient Referral Routine 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) High risk medication use Chronic hypoxemic respiratory failure ANDRES (obstructive sleep apnea) Rheumatoid arthritis involving multiple sites with positive rheumatoid factor (CMS/HCC) Expected: 10/27/2025, Expires: 08/26/2026 documented as of this encounter Visit Diagnoses Diagnosis Chronic hypoxemic respiratory failure- Primary Chronic respiratory failure 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) High risk medication use ANDRES (obstructive sleep apnea) Obstructive sleep apnea (adult) (pediatric) Rheumatoid arthritis involving multiple sites with positive rheumatoid factor (CMS/HCC) Bronchiectasis with acute lower respiratory infection Pulmonary fibrosis Postinflammatory pulmonary fibrosis documented in this encounter Additional Health Concerns Assessment Noted Time PHQ-9 Depression Total Score: 2 07/27/20 25 11:45 AM EST A fall risk assessment has been complete d for the patient 07/27/2025 11:46 AM EST A Body Mass Index follow-up plan has been documented for the patient 07/27/2025 12:18 PM EST documented as of this encounter Care Teams Software Sales Executive Relationship Specialty Start Date End Date Eben Liu MD [address] [address] PCP - General Internal Medicine 12/19/23 documented as of this encounter
--- OUTSIDE RECORDS SUMMARY | 2025-07-27 11:15 | XMS_ITS | Encounter Summary ---
Author Organization [facility] Address [address] [place] [address] Care Team Providers Care Snow Plow Operator Name Role Phone Eben Liu MD Primary Care Provider [phone] Reason for Referral * Consultation (Routine) - Authorized Specialty Diagnoses / Procedures Referred By Contac t Referred To Contact Neurology Diagnoses Cerebrovascular accident (CVA), unspecified mechanism (CMS/HCC) Bridget Bhat DO [address] [place] [address] Phone: tel: fax: [facility] [address], [address] [place] [address] Phone: tel: fax: Referral ID Status Reason Start Date Expiration Date Visits Requested Visits Authorized [id number] Authorized Specialty Services Required 5 01/26/2027 1 1 Reason for Visit * Reason Comments ILD Encounter Details Date Type Department Care Team (Late st Contact Info) Description 07/27/2025 11:15 AM EST Office Visit [facility] [address], [address] [place] [address] Bridget Bhat DO [address] [facility] [address] [place] [id number] Rheumatoid arthritis involving multiple sites with positive [...] Follow-up HPI: [place] [facility] [place] [facility]. Karyn Sanz is a 63 y.o. female who is here for a follow up of rheumatoid arthritis complicated by interstitial lung disease requiring supplemental oxygen at rest. 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) and long [...] Influenza, recombinant, quadrivalent, injectable, preservative free 07/14/2020 [email or web address] COVID-19 Vaccine (Jack Cap) 12+ years (jamee-sucrose) [...] Description 12/30/2025 9:00 AM EDT Ancillary Procedure [facility]ties [address], [address] [place] [address] 12/30/2025 10:30 AM EDT Office Visit [facility] [address], [address] [place] [address] Kamini Fu, DO [address] [place] [address] 12/30/2025 11:20 AM EDT Office Visit [facility] [address], [address] [place] [address] Bridget Bhat DO [address] [place] [address] Scheduled Referrals Name Type Priority Associated Diagnoses Orde r Schedule Neurology Outpatient Referral Routine Cerebrovascular accident (CVA), unspecified mechanism (CMS/HCC) Expected: 07/27/2025 (Approximate), Expires: 01/28/2027 documented as of this encounter Results * (ABNORMAL) IG Profile (07/27/2025 12:43 PM EST) IGA 473(H) 75 - 400 mg/dL 07/27/2025 3:12 PM EST [facility] IGG 897 720 - 1,589 mg/dL 07/27/2025 3:12 PM EST [facility] IGM 26(L) 35 - 225 mg/dL 07/27/2025 3:12 PM EST [facility] Blood Venous blood specimen / Unknown Venipuncture / Unknown 07/27/2025 12:43 PM EST 07/27/2025 12:43 PM EST us Bridget Bhat DO LAB BLOOD ORDERABLES Final Resu lt [facility] [address] [place] [address] * (ABNORMAL) Sedimentation Rate, Automated (07/27/2025 12:43 PM EST) Sedimentation Rate 53(H) <30 mm/hr 2024 2:52 PM EST [facility] Blood Venous blood specimen / Unknown Venipuncture / Unknown 07/27/2025 12:43 PM EST 07/27/2025 12:43 PM EST [email or web address] LAB BLOOD ORDERABLES Final Resu lt Performing Organization Address [facility]/ZIP Co de Phone Number [facility] [address] [place] [address] * (ABNORMAL) C-Reactive Protein, Plasma (07/27/2025 12:43 PM EST) CRP, Plasma 15.0(H) <=8.0 mg/L 07/27/2025 3:12 PM EST [facility] Blood Venous blood specimen / Unknown Venipuncture / Unknown 07/27/2025 12:43 PM EST 07/27/2025 12:43 PM EST Narrative [facility] - 07/27/2025 3:12 PM EST This CRP test is appropriate for assessment of infection, systemic inflammation and/or tissue injury. To assess cardiovascular disease risk order high sensitivity CRP (CRPH). [email or web address] LAB BLOOD ORDERABLES Final Resu lt Performing Organization Address [facility] Co de Phone Number [facility] [address] [place] [address] * (ABNORMAL) CBC and Differential (07/27/2025 12:43 PM EST) WBC Count 5.58 3.70 - 10.30 10*3/uL LAB HEMATOLOGY METHOD 07/27/2025 4:38 PM EST [facility] RBC Count 4.40 3.90 - 5.20 10*6/uL LAB HEMATOLOGY METHOD 07/27/2025 4:38 PM EST [facility] HGB 11.9 11.2 - 15.7 g/dL LAB HEMATOLOGY METHOD 07/27/2025 4:38 PM EST [facility] HCT 38.2 34.0 - 45.0 % LAB HEMATOLOGY METHOD 07/27/2025 4:38 PM EST [facility] Platelet Count 485(H) 155 - 369 10*3/uL LAB HEMATOLOGY METHOD 07/27/2025 4:38 PM EST [facility] MCV 87 79 - 98 fL LAB HEMATOLOGY METHOD 07/27/2025 4:38 PM EST [facility] MCH 27.0 26.0 - 32.0 pg LAB HEMATOLOGY METHOD 07/27/2025 4:38 PM EST [facility] MCHC 31.2 30.7 - 35.5 g/dL LAB HEMATOLOGY METHOD 07/27/2025 4:38 PM EST [facility] RDW 13.3 11.5 - 14.5 % LAB HEMATOLOGY METHOD 07/27/2025 4:38 PM EST [facility] MPV 10.5 8.8 - 12.5 fL LAB HEMATOLOGY METHOD 07/27/2025 4:38 PM EST [facility] nRBC 0.0 <=0.0 per 100 WBCs LAB HEMATOLOGY METHOD 07/27/2025 4:38 PM EST [facility] Differential Type Manual LAB HEMATOLOGY METHOD 07/27/2025 4:38 PM EST [facility] Blood Venous blood specimen / Unknown Venipuncture / Unknown 07/27/2025 12:43 PM EST 07/27/2025 12:43 PM EST Narrative [facility] - 07/27/2025 4:38 PM EST Therapeutic [...] DO LAB BLOOD ORDERABLES Final Resu lt [facility] [address] [place] [address] * (ABNORMAL) Comprehensive Metabolic Panel, Plasma (07/27/2025 12:43 PM EST) Glucose, Plasma 156(H) 74 - 99 mg/dL 07/27/2025 3:12 PM EST [facility] BUN, Plasma 19 8 - 23 mg/dL 07/27/2025 3:12 PM EST [facility] Creatinine, Plasma 0.61 0.60 - 1.10 mg/dL 07/27/2025 3:12 PM EST [facility] BUN/Creatinine Ratio 31 07/27/2025 3:12 PM EST [facility] Sodium, Plasma 135(L) 136 - 145 mmol/L 07/27/2025 3:12 PM EST [facility] Potassium, Plasma 4.0 3.6 - 4.9 mmol/L 07/27/2025 3:12 PM EST [facility] Chloride, Plasma 97 97 - 107 mmol/L 07/27/2025 3:12 PM EST [facility] CO2, Plasma 28 22 - 29 mmol/L 07/27/2025 3:12 PM EST [facility] Anion Gap 10 6 - 16 mmol/L 07/27/2025 3:12 PM EST [facility] Total Calcium, Plasma 9.3 8.9 - 10.2 mg/dL 07/27/2025 3:12 PM EST [facility] Total Protein 6.8 6.3 - 7.9 g/dL 07/27/2025 3:12 PM EST [facility] Albumin, Plasma 3.7 3.5 - 5.2 g/dL 07/27/2025 3:12 PM EST [facility] AST, Plasma 10 10 - 35 U/L 07/27/2025 3:12 PM EST [facility] ALT, Plasma 16 10 - 35 U/L 07/27/2025 3:12 PM EST [facility] Alkaline Phosphatase, Plasma 92 46 - 142 U/L 07/27/2025 3:12 PM EST [facility] Total Bilirubin, Plasma 0.5 0.2 - 1.1 mg/dL 07/27/2025 3:12 PM EST [facility] eGFRcr 98.7 mL/min/1.7 3m*2 07/27/2025 3:12 PM EST [facility] Comment:Reported eGFRcr in m L/min/1.73m2 is based the CKD-EPI 2020 equation that does not use a race coefficient. Blood Venous blood specimen / Unknown Venipuncture / Unknown 07/27/2025 12:43 PM EST 07/27/2025 12:43 PM EST us Bridget Bhat DO LAB BLOOD ORDERABLES Final Resu lt [facility] [address] [place] [address] documented in this encounter Visit Diagnoses Diagnosis [...] documented as of this encounter Care Teams Snow Plow Operator Relationship Specialty Start Date End Date Eben Liu MD [address] [place] [address] PCP - General Internal Medicine 12/19/23 documented as of this encounter
--- OUTSIDE RECORDS SUMMARY | 2025-08-09 13:12 | XMS_ITS | Encounter Summary ---
Author Organization Healthcare Address [address] [place] [address] Care Team Providers Care Tile Layer Name Role Phone Eben Liu MD Primary Care Provider [phone] Encounter Details Date Type Department Care Team (Late st Contact Info) Description 07/27/2025 Telephone [facility] [address] [place] [address] Jazzy Lui, ton cylinder inspector None None Social History Tobacco Use [...] 12/30/2025 9:00 AM EDT Ancillary Procedure [facility] Medicine Specialties [address], 2[address] [place] [address] 12/30/2025 10:30 AM EDT Office Visit [facility] Medicine [facility] [address], [address] [place] [address] CamacKamini R, DO [address] [place] [address] 12/30/2025 11:20 AM EDT Office Visit [facility] [address], [address] [place] [address] Bridget Bhat, DO [address] [place] [address] documented as of this encounter Visit Diagnoses [...] documented as of this encounter Care Teams Tile Layer Relationship Specialty Start Date End Date Eben Liu MD [address] [place] [address] PCP - General Internal Medicine 12/19/23 documented as of this encounter
--- OUTSIDE RECORDS SUMMARY | 2025-08-09 13:12 | XMS_ITS | Encounter Summary ---
Author Organization Healthcare Address [address] [place] [address] Care Team Providers Care Debone Processing Supervisor Name Role Phone Eben Liu MD Primary Care Provider [phone] Encounter Details Date Type Department Care Team (Late st Contact Info) Description 12/25/2023 Orders Only External Location [address] [place] [address] Provider, External Social History Tobacco Use Types [...] Description 12/30/2025 9:00 AM EDT Ancillary Procedure [facility] [address], 2nd [place] [address] 12/30/2025 10:30 AM EDT Office Visit [facility] [address], [address] [place] [address] CamKamini santana R, DO [address] [place] [address] 12/30/2025 11:20 AM EDT Office Visit [facility] [address], 2[address] [place] [address] Bridget Bhat, DO [address] [place] [address] documented as of this encounter [...] documented as of this encounter Care Teams Debone Processing Supervisor Relationship Specialty Start Date End Date Eben Liu MD [address] [place], [place] [address] PCP - General Internal Medicine 12/19/23 documented as of this encounter
--- OUTSIDE RECORDS SUMMARY | 2025-08-09 13:12 | XMS_ITS | Encounter Summary ---
Author Organization Healthcare Address [address] [place] [address] Care Team Providers Care Wind Farm Electrical Systems Designer Name Role Phone Eben Liu MD Primary Care Provider [phone] Encounter Details Date Type Department Care Team (Late st Contact Info) Description 07/28/2025 Telephone [facility] [address], [address] [place] [address] Bridget Bhat DO [address] [place] [address] Social History Tobacco Use Types [...] Description 12/30/2025 9:00 AM EDT Ancillary Procedure [facility] Medicine Specialties [address], [address] [place] [address] 12/30/2025 10:30 AM EDT Office Visit [facility] [address], 2nd [place] [address] Kamini Fu DO [address] [place] [address] 12/30/2025 11:20 AM EDT Office Visit [facility] [address], [address] [place] [address] Bridget Bhat DO [address] [place] [address] documented as of this encounter Visit Diagnoses [...] documented as of this encounter Care Teams Wind Farm Electrical Systems Designer Relationship Specialty Start Date End Date Eben Liu MD [address] [place] [address] PCP - General Internal Medicine 12/19/23 documented as of this encounter
--- OUTSIDE RECORDS SUMMARY | 2025-08-09 13:12 | XMS_ITS | Encounter Summary ---
Author Organization Healthcare Address [address] [place] [address] Care Team Providers Care Equipment Monitor Phototypesetting Name Role Phone Eben Liu MD Primary Care Provider [phone] Encounter Details Date Type Department Care Team (Late st Contact Info) Description 07/06/2025 Orders Only [facility] Medicine Specialties [address], [address] [place] [address] Bridget Bhat DO [address] [place] [address] ILD (interstitial lung disease) (CMS/HCC) [...] Description 12/30/2025 9:00 AM EDT Ancillary Procedure [facility] Medicine Specialties [address], [address] [place] [address] 12/30/2025 10:30 AM EDT Office Visit [facility]ties [address], [address] [place] [address] Kamini Fu, DO [address] [place] [address] 12/30/2025 11:20 AM EDT Office Visit [facility] Medicine Specialties [address], [address] [place] [address] Bridget Bhat, DO [address] [place] [address] documented as of this encounter Visit Diagnoses [...] documented as of this encounter Care Teams Equipment Monitor Phototypesetting Relationship Specialty Start Date End Date Eben Liu MD [address] [place] [address] PCP - General Internal Medicine 12/19/23 documented as of this encounter
--- OUTSIDE RECORDS SUMMARY | 2025-08-09 13:12 | XMS_ITS | Encounter Summary ---
Author Organization Healthcare Address [address] [place] [address] Care Team Providers Care Cardio Clinician Name Role Phone Eben Liu MD Primary Care Provider [phone] Encounter Details Date Type Department Care Team [...] 12/30/2025 9:00 AM EDT Ancillary Procedure [facility] Medicine Specialties [address], [address] [place] [address] 12/30/2025 10:30 AM EDT Office Visit [facility]ties [address], [address] [place] [address] Kamini Fu, DO [address] [place] [address] 12/30/2025 11:20 AM EDT Office Visit [facility] Special[facility] [address], [address] [place] [address] Bridget Bhat, DO [address] [place] [address] documented as of this encounter [...] documented as of this encounter Care Teams Cardio Clinician Relationship Specialty Start Date End Date Eben Liu MD [address] [place] [address] PCP - General Internal Medicine 12/19/23 documented as of this encounter
--- OUTSIDE RECORDS SUMMARY | 2025-08-09 13:12 | XMS_ITS | Encounter Summary ---
Author Organization Healthcare Address [address] [place] [address] Care Team Providers Care System Integration Engineer Name Role Phone Eben Liu MD Primary Care Provider [phone] Encounter Details Date Type Department Care Team (Late st Contact Info) Description 06/08/2025 Telephone [facility] [address] [place] [address] Ananya Rubio, PharmD None None Social History [...] Description 12/30/2025 9:00 AM EDT Ancillary Procedure [facility] Medicine Specialties [address], [address] [place] [address] 12/30/2025 10:30 AM EDT Office Visit [facility] [address], [address] [place] [address] Kamini Fu, DO [address] [place] [address] 12/30/2025 11:20 AM EDT Office Visit [facility] [address], [address] [place] [address] Bridget Bhat, DO [address] [place] [address] documented as of this encounter Visit Diagnoses Diagnosis Seropositive rheumatoid arthritis of multiple sites (CMS/HCC) documented in this encounter Additional Health Concerns Assessment Noted Time A fall risk assessment has been complete d for the patient 03/18/2025 9:35 AM EDT A Body Mass Index follow-up plan has been documented for the patient 03/18/2025 10:34 AM EDT documented as of this encounter Care Teams System Integration Engineer Relationship Specialty Start Date End Date Eben Liu MD [address] [place] [address] PCP - General Internal Medicine 12/19/23 documented as of this encounter
--- OUTSIDE RECORDS SUMMARY | 2025-08-09 13:12 | XMS_ITS | Encounter Summary ---
Author Organization Healthcare Address [address] [place] [address] Care Team Providers Care Inking Machine Tender Name Role Phone Eben Liu MD Primary Care Provider Encounter Details Date Type Department Care Team ([facility] st Contact Info) Description 07/23/2025 Orders Only External Location [address] [place] [address] Provider, External Social History Tobacco Use Types [...] 12/30/2025 9:00 AM EDT Ancillary Procedure [facility] Medicine Specialties [address], 2nd [place] [address] 12/30/2025 10:30 AM EDT Office [facility]ties [address], [address] [place] [address] CamacKamini R, DO [address] [place] [address] 12/30/2025 11:20 AM EDT Office Visit [facility] Medicine Specialties [address], [address] [place] [address] Bridget Bhat, DO [address] [place] [address] documented as of this encounter [...] documented as of this encounter Care Teams Inking Machine Tender Relationship Specialty Start Date End Date Eben Liu MD [address] [place] [address] PCP - General Internal Medicine 12/19/23 documented as of this encounter
--- OUTSIDE RECORDS SUMMARY | 2025-08-09 13:12 | XMS_ITS | Encounter Summary ---
Author Organization Healthcare Address [address] [place] [address] Care Team Providers Care Equipment Records Supervisor Name Role Phone Eben Liu MD Primary Care Provider [phone] Encounter Details Date Type Department Care Team (Late st Contact Info) Description 06/20/2025 Orders Only [facility] Medicine Specialties [address], [address]nd [place] [address] Provider, [place] [phone] Social History Tobacco Use Types Packs/Day Years [...] Description 12/30/2025 9:00 AM EDT Ancillary Procedure [facility] Medicine Specialties [address], [address]nd [place] [address] 12/30/2025 10:30 AM EDT Office Visit [facility] Specialties [address], [address]nd [place] [address] CamacKamini R, DO [address] [place] [address] 12/30/2025 11:20 AM EDT Office Visit [facility] Specialties [address], [address] [place] [address] Bridget Bhat, DO [address] [place] [address] documented as of this encounter Procedures Procedure [...] as of this encounter Care Teams Equipment Records Supervisor Relationship Specialty Start Date End Date Eben Liu MD [address] [place] [address] PCP - General Internal Medicine 12/19/23 documented as of this encounter
--- OUTSIDE RECORDS SUMMARY | 2025-08-09 13:12 | XMS_ITS | Encounter Summary ---
Author Organization [facility] Address [address] [place] [address] Care Team Providers Care Fee Clerk Name Role Phone Kwame Solomon MD Primary Care Provider [phone] Eben Liu MD Primary Care Provider [phone] Encounter Details Date Type Department Care Team (Late st Contact Info) Description 10/07/2022 Orders Only External Location [address] [place] [address] Provider, External Social History Tobacco Use Types [...] Description 12/30/2025 9:00 AM EDT Ancillary Procedure [facility] Medicine Specialties [address], [address]nd [place] [address] 12/30/2025 10:30 AM EDT Office Visit [facility] Medicine Specialties [address], [address] [place] [address] Kamini Fu, DO [address] [place] [address] 12/30/2025 11:20 AM EDT Office Visit [facility] Specialties [address], [address] [place] [address] Bridget Bhat, DO [address] [place] [address] documented as of this encounter [...] documented as of this encounter Care Teams Fee Clerk Relationship Specialty Start Date End Date Kwame Solomon MD [facility] [address] [place] [address] PCP - General 01/19/21 12/18/23 Eben Liu MD [address] [place] [address] [address] [place] [address] PCP - General Internal Medicine 12/19/23 documented as of this encounter
--- OUTSIDE RECORDS SUMMARY | 2025-08-09 13:12 | XMS_ITS | Encounter Summary ---
Author Organization Healthcare Address [address] [place] [address] Care Team Providers Care Electrocardiogram Technician Name Role Phone Eben Liu MD Primary Care Provider [phone] Encounter Details Date Type Department Care Team (Late st Contact Info) Description 01/19/2024 Orders Only External Location [address] [place] [address] Provider, External Social History Tobacco Use Types [...] [facility] [address], 2nd [place] [address] 12/30/2025 10:30 AM EDT Office Visit [facility] [address], [address]nd [place] [address] CamKamini santana Rahul, DO [address] [place] [address] 12/30/2025 11:20 AM EDT Office Visit [facility] [address], [address] [place] [address] Bridget Bhat, DO [address] [place] [address] documented as of this encounter [...] documented as of this encounter Care Teams Electrocardiogram Technician Relationship Specialty Start Date End Date Eben Liu MD [address] [place], [place] [address] PCP - General Internal Medicine 12/19/23 documented as of this encounter
--- OUTSIDE RECORDS SUMMARY | 2025-08-09 13:12 | XMS_ITS | Encounter Summary ---
Author Organization Healthcare Address [address] [place] [address] Care Team Providers Care Railroad Car Repairman Name Role Phone Eben Liu MD Primary Care Provider [phone] Encounter Details Date Type Department Care Team ([facility] st Contact Info) Description 07/23/2025 Orders Only External Location [address] [place] [address] Provider, External Social History Tobacco Use Types [...] Description 12/30/2025 9:00 AM EDT Ancillary Procedure [facility] Medicine Specialties [address], [address]nd [place] [address] 12/30/2025 10:30 AM EDT Office Visit [facility] Medicine Specialties [address], [address] [place] [address] Camac, Kamini R, DO [address] [place] [address] 12/30/2025 11:20 AM EDT Office Visit [facility] Medicine Specialties [address], [address] [place] [address] Bridget Bhat, DO [address] [place] [address] documented as of this encounter [...] documented as of this encounter Care Teams Railroad Car Repairman Relationship Specialty Start Date End Date Eben Liu MD [address] [place] [address] PCP - General Internal Medicine 12/19/23 documented as of this encounter
--- OUTSIDE RECORDS SUMMARY | 2025-08-09 13:12 | XMS_ITS ---
Author Organization [facility] Address [address] [place] [address] Care Team Providers Care Spout Liner Helper Name Role Phone Eben Liu MD Primary Care Provider [phone] Transplant Episode Lung Candidate [facility] ([place], [place]) - KYLEE Referred on 06/23/2024 Marked as Internal Hold on 07/21/2024 Reason: Patient Choice Lung CoordinatorLindy Mata Phone: N/A Fax: N/A Email: N/A Care Team Name Role Phone Fax Email Lindy Mata Lung Coordinator N/A N/A N /A Events Pre-Transplant Referred: 06/23/2024
--- OUTSIDE RECORDS SUMMARY | 2025-08-09 13:12 | XMS_ITS | Encounter Summary ---
Author Organization Healthcare Address [address] [place] [address] Care Team Providers Care Launderer Hand Name Role Phone Eben Liu MD Primary Care Provider [phone] Encounter Details Date Type Department Care Team (Late st Contact Info) Description 12/25/2023 Orders Only External Location [address] [place] [address] Provider, External Social History Tobacco Use Types [facility] [address], [address]nd [place] [address] 12/30/2025 10:30 AM EDT Office Visit [facility] Medicine Specialties [address], [address] [place] [address] CamKamini santana R, DO [address] [place] [address] 12/30/2025 11:20 AM EDT Office Visit [facility] Medicine Specialties [address], [address] [place] [address] Bridget Bhat, DO [address] [place] [address] documented as of this encounter [...] documented as of this encounter Care Teams Launderer Hand Relationship Specialty Start Date End Date Eben Liu MD [address] [place], [place] [address] PCP - General Internal Medicine 12/19/23 documented as of this encounter
--- OUTSIDE RECORDS SUMMARY | 2025-08-09 13:12 | XMS_ITS | Encounter Summary ---
Author Organization Healthcare Address [address] [place] [address] Care Team Providers Care Plaster Tender Name Role Phone Eben Liu MD Primary Care Provider [phone] Encounter Details Date Type Department Care Team (Late st Contact Info) Description 07/27/2025 Orders Only [facility] Medicine Specialties [address] [place] [address] Elroy Rosenthal MD [address] [place] [address] ILD (interstitial lung disease) (CMS/HCC) [...] [facility] Specialties [address], [address] [place] [address] 12/30/2025 10:30 AM EDT Office Visit [facility] Medicine [facility] [address], [address] [place] [address] CamKamini santana R, DO [address] [place] [address] 12/30/2025 11:20 AM EDT Office Visit [facility] Medicine [facility] [address], [address] [place] [address] AnticBridget, DO [address] [place] [address] documented as of this encounter Results * N-Terminal Probnp, Plasma (07/27/2025 12:43 PM EST) N-Terminal, PROBNP, Plasma 269 0 - 899 pg/mL 07/27/2025 3:12 PM EST [facility] Blood Venous blood specimen / Unknown Venipuncture / Unknown 07/27/2025 12:43 PM EST 07/27/2025 12:43 PM EST us Elroy Rosenthal MD LAB BLOOD ORDERABLES Final R esult [facility] [address] [place] [address] documented in this encounter Visit Diagnoses Diagnosis [...] documented as of this encounter Care Teams Plaster Tender Relationship Specialty Start Date End Date bEen Liu MD [address] [place] [address] PCP - General Internal Medicine 12/19/23 documented as of this encounter
--- OUTSIDE RECORDS SUMMARY | 2025-08-09 13:12 | XMS_ITS | Encounter Summary ---
Author Organization Healthcare Address [address] [place] [address] Care Team Providers Care Basketball Player Name Role Phone Eben Liu MD Primary Care Provider [phone] Encounter Details Date Type Department Care Team (Late st Contact Info) Description 07/27/2025 Orders Only [facility] Medicine Specialties [address], [address] [place] [address] Marley Brown MD [address] [place] [address] Neutropenia, unspecified type (CMS/HCC) (Primary [...] Not at all 07/27/2025 11:45 AM Jennifer Dikcerson Thoughts that you would be better off [...] Description 12/30/2025 9:00 AM EDT Ancillary Procedure [facility] Medicine Specialties [address], [address] [place] [address] 12/30/2025 10:30 AM EDT Office Visit [facility] [address], [address]nd [place] [address] Camac, Kamini R, DO [address] [place] [address] 12/30/2025 11:20 AM EDT Office Visit [facility] [address], [address] [place] [address] AnticBridget, DO [address] [place] [address] Scheduled Orders Name Type Priority [...] documented as of this encounter Care Teams Basketball Player Relationship Specialty Start Date End Date Eben Liu MD [address] [place] [address] PCP - General Internal Medicine 12/19/23 documented as of this encounter
--- OUTSIDE RECORDS SUMMARY | 2025-08-09 13:13 | XMS_ITS | Encounter Summary ---
Author Organization [facility] Address [address] [place] [address] Care Team Providers Care Employee Health Rn Name Role Phone Eben Liu MD Primary Care Provider [phone] Encounter Details Date Type Department Care Team (Late st Contact Info) Description 06/28/2025 Patient rounding ([facility] only) [facility] [address] [facility] [address] [place] [address] Rufina Morataya RegSched Rep Social History Tobacco [...] Rufina I am with [facility] [address] [address] . Before we get started [...] Description 09/27/2025 11:30 AM EST Office Visit [facility] [address] [facility] [address] [place], [place] [id number] Margarita Blanc APRN [address] [facility] [address] [address] documented as of this encounter Visit Diagnoses Not on filedocumented in this encounter Care Teams Employee Health Rn Relationship Specialty Start Date End Date Eben Liu MD [address] [place] [facility] [address] [facility] [address] [facility] [address] PCP - General Adolescent Medicine 04/12/25 documented as of this encounter
--- OUTSIDE RECORDS SUMMARY | 2025-08-09 13:13 | XMS_ITS | Clinical Summary ---
Author Organization [facility] Address [address] [place] [address] Care Team Providers Care Supervisor Pumping Station Name Role Phone Eben Liu MD Primary Care Provider [phone] Allergies Active Allergy Reactions Criticality Noted Date [...] Encounters Date Type Department Care Team Description 08/08/2025 Telephone [facility] Medicine Specialties [address], [address] [place] [address] Dinah Yates 07/28/2025 Telephone [facility] Medicine Specialties [address], [address] [place] [address] Bridget Bhat DO 07/27/2025 11:15 AM EST Office Visit [facility] Medicine Specialties [address], [address] [place] [address] Bridget Bhat DO Rheumatoid arthritis involving multiple sites with positive rheumatoid factor ([facility]) (Primary Dx); Seropositive rheumatoid arthritis of multiple sites ([facility]); High risk medication use; ILD (interstitial lung disease) (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); Bronchiectasis with acute lower respiratory infection; Pulmonary fibrosis 07/27/2025 Orders Only [facility] Specialties [address] [place] [address] Marley Brown MD Neutropenia, unspecified type ([facility]) (Primary Dx) 07/27/2025 Telephone [facility] [address] [place] [address] Jazzy Lui, [facility] 07/27/2025 Orders Only [facility] Medicine Specialties [address], [address] [place] [address] Elroy Rosenthal MD ILD (interstitial lung disease) ([facility]) (Primary Dx); Dyspnea, unspecified 07/27/2025 Travel 07/23/2025 Orders Only External Location [address] [place] [address] Provider, External 07/23/2025 Orders Only External Location [address] [place] [address] Provider, External 07/06/2025 Orders Only [facility] Specialties [address], [address] [place] [phone] Bridget Bhat DO ILD (interstitial lung disease) ([facility]) (Primary Dx); Rheumatoid arthritis involving multiple sites with positive rheumatoid factor ([facility]) 06/20/2025 Orders Only [facility] Specialties [address], [address] [place] [address] Provider, Historical 06/08/2025 Telephone [facility] [address] [place] [address] Ananya Rubio, PharmD 06/02/2025 Telephone [place] [address], [address] [place] [address] Bridget Bhat DO from Last 3 Months Immunizations Immunization Administration Dates Next Due Influenza, High-dose, Split Virus, Trivalent, Injectable, preservative free 06/01/2025,06/23/2024,10/14/2018 Influenza, high-dose, quadrivalent 10/14/2018 Influenza, injectable, quadrivalent 05/07/2017 Influenza, injectable, quadr ivalent, preservative free 07/02/2023,07/08/2019 Influenza, recombinant, quad rivalent, injectable, preservative free 07/14/2020 [employer] COVID-19 Vac cine (Jack Cap) 12+ years [...] Description 12/30/2025 9:00 AM EDT Ancillary Procedure [facility] Medicine Specialties [address], [address] [place] [address] 12/30/2025 10:30 AM EDT Office Visit [facility] Medicine Specialties [address], [address] [place] [address] Kamini Fu, DO [address] [place] [address] 12/30/2025 11:20 AM EDT Office Visit [facility] Medicine [facility] [address], [address] [place] [address] Bridget Bhat DO [address] [place] [address] Health Maintenance Due Date Last Done Comments [facility]-Bone Density Scan 1960 [facility]-Medicare Annual Wellness (AWV) 1960 [facility]-/Child/Adol SDOH Screenings 1960 Diabetes: Dental Exam 1968 [facility]- SDOH Screenings 1976 [facility]-Adult SDOH Screenings 1976 CT Colonography 2003 Colonoscopy 2003 FIT-DNA 2003 FIT 2003 FOBT 2003 Sigmoidoscopy 2003 [facility]-Colorectal Cancer Screening 2003 [facility]-Breast Cancer Screening 2008 [id number] Vaccine (2 - Pfizer risk series) 04/24/2022 [...] LAB HEMATOLOGY METHOD 07/27/2025 4:38 PM EST [facility] Platelet Estimate Platelet smear estimate consistent with automated count LAB HEMATOLOGY METHOD 07/27/2025 4:38 PM EST [facility] Blood Venous blood specimen / Unknown Venipuncture / Unknown 07/27/2025 12:43 PM EST 07/27/2025 12:43 PM EST Bridget Bhat DO LAB BLOOD ORDERABLES Final Resu lt [facility] [address] [place] [address] * (ABNORMAL) Manual Differential (07/27/2025 12:43 PM EST) Blasts % 0 % LAB HEMATOLOGY METHOD 07/27/2025 4:38 PM EST [facility] Promyelocytes % 0 % LAB HEMATOLOGY METHOD 07/27/2025 4:38 PM EST [facility] Myelocytes % 0 % LAB HEMATOLOGY METHOD 07/27/2025 4:38 PM EST [facility] Metamyelocytes % 1 % LAB HEMATOLOGY METHOD 07/27/2025 4:38 PM EST [facility] Neutrophils % 0 % LAB HEMATOLOGY METHOD 07/27/2025 4:38 PM EST [facility] Lymphocytes % 60 % LAB HEMATOLOGY METHOD 07/27/2025 4:38 PM EST [facility] Reactive Lymphocytes % 4 % LAB HEMATOLOGY METHOD 07/27/2025 4:38 PM EST [facility] Monocytes % 33 % LAB HEMATOLOGY METHOD 07/27/2025 4:38 PM EST [facility] Eosinophils % 1 % LAB HEMATOLOGY METHOD 07/27/2025 4:38 PM EST [facility] Basophils % 1 % LAB HEMATOLOGY METHOD 07/27/2025 4:38 PM EST [facility] Blasts Absolute LAB HEMATOLOGY METHOD 07/27/2025 4:38 PM EST [facility] Promyelocytes Absolute LAB HEMATOLOGY METHOD 07/27/2025 4:38 PM EST [facility] Myelocytes Absolute LAB HEMATOLOGY METHOD 07/27/2025 4:38 PM EST [facility] Metamyelocytes Absolute 0.06 10*3/uL LAB HEMATOLOGY METHOD 07/27/2025 4:38 PM EST [facility] Neutrophils Absolute 0.00(LL) 1.60 - 6.10 10*3/uL LAB HEMATOLOGY METHOD 07/27/2025 4:38 PM EST [facility] Lymphocytes Absolute 3.35 1.20 - 3.90 10*3/uL LAB HEMATOLOGY METHOD 07/27/2025 4:38 PM EST [facility] Reactive Lymphocytes Absolute 0.22 10*3/uL LAB HEMATOLOGY METHOD 07/27/2025 4:38 PM EST [facility] Monocytes Absolute 1.84(H) 0.30 - 0.90 10*3/uL LAB HEMATOLOGY METHOD 07/27/2025 4:38 PM EST [facility] Eosinophils Absolute 0.06 0.00 - 0.50 10*3/uL LAB HEMATOLOGY METHOD 07/27/2025 4:38 PM EST [facility] Basophils Absolute 0.06 0.00 - 0.10 10*3/uL LAB HEMATOLOGY METHOD 07/27/2025 4:38 PM EST [facility] Blood Venous blood specimen / Unknown Venipuncture / Unknown 07/27/2025 12:43 PM EST 07/27/2025 12:43 PM EST us Bridget Bhat DO LAB BLOOD ORDERABLES Final Resu lt [facility] [address] [place] [address] * (ABNORMAL) IG Profile (07/27/2025 12:43 PM EST) IGA 473(H) 75 - 400 mg/dL 07/27/2025 3:12 PM EST [facility] IGG 897 720 - 1,589 mg/dL 07/27/2025 3:12 PM EST [facility] IGM 26(L) 35 - 225 mg/dL 07/27/2025 3:12 PM EST [facility] Blood Venous blood specimen / Unknown Venipuncture / Unknown 07/27/2025 12:43 PM EST 07/27/2025 12:43 PM EST us Bridget Antic DO LAB BLOOD ORDERABLES Final Resu lt Performing Organization Address City/[facility]/ZIP Co de Phone Number [facility] [address] [place] [address] * N-Terminal Probnp, Plasma (07/27/2025 12:43 PM EST) N-Terminal, PROBNP, Plasma 269 0 - 899 pg/mL 07/27/2025 3:12 PM EST [facility] Blood Venous blood specimen / Unknown Venipuncture / Unknown 07/27/2025 12:43 PM EST 07/27/2025 12:43 PM EST us Elroy Rosenthal MD LAB BLOOD ORDERABLES Final R esult Performing Organization Address City/[facility]/ZIP Co de Phone Number [facility] [address] [place] [address] * (ABNORMAL) Sedimentation Rate, Automated (07/27/2025 12:43 PM EST) Sedimentation Rate 53(H) <30 mm/hr 2024 2:52 PM EST [facility] Blood Venous blood specimen / Unknown Venipuncture / Unknown 07/27/2025 12:43 PM EST 07/27/2025 12:43 PM EST us Bridget Antic DO LAB BLOOD ORDERABLES Final Resu lt Performing Organization Address City/[facility]/ZIP Co de Phone Number [facility] [address] [place] [address] * (ABNORMAL) CBC and Differential (07/27/2025 12:43 PM EST) WBC Count 5.58 3.70 - 10.30 10*3/uL LAB HEMATOLOGY METHOD 07/27/2025 4:38 PM EST [facility] RBC Count 4.40 3.90 - 5.20 10*6/uL LAB HEMATOLOGY METHOD 07/27/2025 4:38 PM EST [facility] HGB 11.9 11.2 - 15.7 g/dL LAB HEMATOLOGY METHOD 07/27/2025 4:38 PM [facility] HCT 38.2 34.0 - 45.0 % LAB HEMATOLOGY METHOD 07/27/2025 4:38 PM EST [facility] Platelet Count 485(H) 155 - 369 10*3/uL LAB HEMATOLOGY METHOD 07/27/2025 4:38 PM EST [facility] MCV 87 79 - 98 fL LAB HEMATOLOGY METHOD 07/27/2025 4:38 PM EST [facility] MCH 27.0 26.0 - 32.0 pg LAB HEMATOLOGY METHOD 07/27/2025 4:38 PM [facility] MCHC 31.2 30.7 - 35.5 g/dL LAB HEMATOLOGY METHOD 07/27/2025 4:38 PM [facility] RDW 13.3 11.5 - 14.5 % LAB HEMATOLOGY METHOD 07/27/2025 4:38 PM EST [facility] MPV 10.5 8.8 - 12.5 fL LAB HEMATOLOGY METHOD 07/27/2025 4:38 PM [facility] nRBC 0.0 <=0.0 per 100 WBCs LAB HEMATOLOGY METHOD 07/27/2025 4:38 PM [facility] Differential Type Manual LAB HEMATOLOGY METHOD 07/27/2025 4:38 PM [facility] Blood Venous blood specimen / Unknown Venipuncture / Unknown 07/27/2025 12:43 PM EST 07/27/2025 12:43 PM EST [facility] - 07/27/2025 4:38 PM EST [...] Immature Granulocytes is no longer being reported. [facility] LAB BLOOD ORDERABLES Final Resu Performing Organization Address [facility] Co de Phone Number [facility] [address] [place] [address] * (ABNORMAL) C-Reactive Protein, Plasma (07/27/2025 12:43 PM EST) Pathologist [facility] CRP, Plasma 15.0(H) <=8.0 mg/L 07/27/2025 3:12 PM EST [facility] Blood Venous blood specimen / Unknown Venipuncture / Unknown 07/27/2025 12:43 PM EST 07/27/2025 12:43 PM EST Narrative [facility] - 07/27/2025 3:12 PM EST This CRP test is appropriate for assessment of infection, systemic inflammation and/or tissue injury. To assess cardiovascular disease risk order high sensitivity CRP (CRPH). [facility] LAB BLOOD ORDERABLES Final Resu Performing Organization Address [facility] Phone Number [facility] [address] [place] [address] * (ABNORMAL) Comprehensive Metabolic Panel, Plasma (07/27/2025 12:43 PM EST) Glucose, Plasma 156(H) 74 - 99 mg/dL 07/27/2025 3:12 PM EST [facility] BUN, Plasma 19 8 - 23 mg/dL 07/27/2025 3:12 PM EST [facility] Creatinine, Plasma 0.61 0.60 - 1.10 mg/dL 07/27/2025 3:12 PM EST [facility] BUN/Creatinine Ratio 31 07/27/2025 3:12 PM EST [facility] Sodium, Plasma 135(L) 136 - 145 mmol/L 07/27/2025 3:12 PM EST [facility] Potassium, Plasma 4.0 3.6 - 4.9 mmol/L 07/27/2025 3:12 PM EST [facility] Chloride, Plasma 97 97 - 107 mmol/L 07/27/2025 3:12 PM EST [facility] CO2, Plasma 28 22 - 29 mmol/L 07/27/2025 3:12 PM EST [facility] Anion Gap 10 6 - 16 mmol/L 07/27/2025 3:12 PM EST [facility] Total Calcium, Plasma 9.3 8.9 - 10.2 mg/dL 07/27/2025 3:12 PM EST [facility] Total Protein 6.8 6.3 - 7.9 g/dL 07/27/2025 3:12 PM EST [facility] Albumin, Plasma 3.7 3.5 - 5.2 g/dL 07/27/2025 3:12 PM EST [facility] AST, Plasma 10 10 - 35 U/L 07/27/2025 3:12 PM EST [facility] ALT, Plasma 16 10 - 35 U/L 07/27/2025 3:12 PM EST [facility] Alkaline Phosphatase, Plasma 92 46 - 142 U/L 07/27/2025 3:12 PM EST [facility] Total Bilirubin, Plasma 0.5 0.2 - 1.1 mg/dL 07/27/2025 3:12 PM EST [facility] eGFRcr 98.7 mL/min/1.7 3m*2 07/27/2025 3:12 PM EST [facility] Comment:Reported eGFRcr in m L/min/1.73m2 is based the CKD-EPI 2020 equation that does not use a race coefficient. Blood Venous blood specimen / Unknown Venipuncture / Unknown 07/27/2025 12:43 PM EST 07/27/2025 12:43 PM EST us Bridget Bhat DO LAB BLOOD ORDERABLES Final Resu lt [facility] [address] [place] [address] * CT THORACIC OUTSIDE IMAGES (07/23/2025 10:17 AM EST) Anatomical Region Laterality Modality Computed Tomogra phy 07/23/2025 10:1 7 AM EST External Provider IMG CT PROCEDURES Edited Resul [...] DO LAB BLOOD ORDERABLES Final Re sult SUNJUAN MANUEL * (ABNORMAL) Hemoglobin A1c (10/14/2018 12:28 PM [...] <6.0% Children and Adolescents <7.5% . Source: Citizen Of [place] [employer]. Standards of medical care in [...] Health Maintenance Insurance MEDICARE MEDICARE Care Teams Supervisor Pumping Station Relationship Specialty Start Date End Date Eben Liu MD [address] [place], [place] [address] PCP - General Internal Medicine 12/19/23
--- OUTSIDE RECORDS SUMMARY | 2025-08-09 13:13 | XMS_ITS | Encounter Summary ---
Author Organization [facility] Address [address] [id number] Care Team Providers Care Fine Grade Bulldozer Operator Name Role Phone Eben Liu MD Primary Care Provider [phone] Encounter Details Date Type Department Care Team (Late st Contact Info) Description 08/08/2025 Telephone [facility] Medicine Specialties [address], [address] [place] [address] [place] [address] Social History Tobacco Use Types Packs/Day Years [...] encounter Miscellaneous Notes * Telephone Encounter - Dinah Yates - 08/08/2025 12:00 PM EST Patient called returning a call to Dr. Bhat CB: [phone] documented in this encounter Plan of Treatment Upcoming Encounters Date Type Department Care Team (Late st Contact Info) Description 12/30/2025 9:00 AM EDT Ancillary Procedure [facility] Medicine Specialties [address] [place] [address] 12/30/2025 10:30 AM EDT Office Visit [facility] Medicine Specialties [address], [address]nd [place] [address] Kamini Fu, DO [address] [place] [address] 12/30/2025 11:20 AM EDT Office Visit [facility] [address], [address] [place] [address] Bridget Bhat [address] [place] [address] documented as of this encounter Visit Diagnoses [...] documented as of this encounter Care Teams Fine Grade Bulldozer Operator Relationship Specialty Start Date End Date Eben Liu MD [address] [place] [address] PCP - General Internal Medicine 12/19/23 documented as of this encounter
--- OUTSIDE RECORDS SUMMARY | 2025-08-09 13:13 | XMS_ITS | Encounter Summary ---
Author Organization [facility] Address [address] [place] [address] Care Team Providers Care Cooker Syrup Name Role Phone Eben Liu MD Primary Care Provider [phone] Encounter Details Date Type Department Care Team [...] Description 09/27/2025 11:30 AM EST Office Visit [facility] [address] [facility] [address] [place] [address] Margarita Blanc, LOGISTICS ADMINISTRATOR [address] [facility] [address] [place] [address] documented as of this encounter Visit Diagnoses Not on filedocumented in this encounter Care Teams Cooker Syrup Relationship Specialty Start Date End Date Eben Liu MD [address] [facility] [address] [place] [address] PCP - General Adolescent Medicine 04/12/25 documented as of this encounter
--- OUTSIDE RECORDS SUMMARY | 2025-08-09 13:13 | XMS_ITS | Clinical Summary ---
Author Organization [facility] Address [address] [place] [address] Care Team Providers Care Lasting Machine Operator Hand Method Name Role Phone Eben Liu MD Primary Care Provider [phone] Allergies Active Allergy Reactions Criticality Noted Date [...] Department Care Team Description 06/28/2025 Patient rounding ([facility] only) [facility] [address] [place] [address] Rufina Morataya RegSched Rep 06/27/2025 11:00 AM EDT Office Visit [facility] [address] [place] [address] Margarita Blanc, ROGER History of TIA (transient [...] AM EST Office Visit [facility] [address] [facility] [address] [place], [place] [id number] Margarita Blanc, ACCORDION TUNER [address] [facility] [address] [address] Health Maintenance Due Date Last Done Comments [...] - 5.60 % 04/12/2025 6:00 AM EDT [facility] Blood Venipuncture / Unknown 04/12/2025 4:54 AM EDT 04/12/2025 5:05 AM EDT [facility] - 04/12/2025 6:00 AM EDT Hemoglobin A1C Ranges: Increased Risk for Diabetes 5.7% to 6.4% Diabetes >= 6.5% Diabetic Goal < 7.0% May Arnoldo ACCORDION TUNER LAB BLOOD ORDERABLES Fi nal Result [facility]
[address] [place] [address], * Lipid Panel (04/12/2025 4:54 AM EDT) Total Cholesterol 159 0 - 200 mg/dL 04/12/2025 5:31 AM EDT [facility] Triglycerides 55 0 - 150 mg/dL 04/12/2025 5:31 AM EDT [facility] HDL Cholesterol 48 40 - 60 mg/dL 04/12/2025 5:31 AM EDT [facility] LDL Cholesterol 100 0 - 100 mg/dL 04/12/2025 5:31 AM EDT [facility] VLDL Cholesterol 11 5 - 40 mg/dL 04/12/2025 5:31 AM EDT [facility] LDL/HDL Ratio 2.08 04/12/2025 5:31 AM EDT [facility] Blood Venipuncture / Unknown 04/12/2025 4:54 AM EDT 04/12/2025 5:05 AM EDT [facility] - 04/12/2025 5:31 AM EDT [...] Arnoldo DURAN LAB BLOOD ORDERABLES nal Result [facility]
[address] [place] [address], from Last 3 Months or Most Recently Relevant to Health Maintenance Insurance * Guarantor: Karyn Sanz Account Type Relation to Patient Date of Phone Billing Address Personal/Family Self 1960 [facility] [place] [address] MEDICARE A & B Advance Directives * [...] Of Support Discussed With: Patient Care Teams Lasting Machine Operator Hand Method Relationship Specialty Start Date End Date Eben Liu MD [facility] [address] [address] PCP - General Adolescent Medicine 04/12/25
[2025-08-09 13:33] LABS: Hematocrit 40.3 % (37.0-47.0); Hemoglobin 12.5 g/dL (12.2-16.2); Immature Granulocytes % 1.9 %; Mean Corpuscular HGB Conc 31.0 g/dL (31.8-35.4); Mean Corpuscular Hemoglobin 27.5 pg (27.0-31.2); Mean Corpuscular Volume 88.6 fl (81-99); Nucleated Red Blood Cells % 0 %; Platelet Count 455 K/mm3 (142-424); Red Blood Count 4.55 M/mm3 (4.20-5.40); Red Cell Distribution Width-SD 42.8 fL; White Blood Count 24.2 K/mm3 (4.8-10.8)
[2025-08-09 15:26] LABS: Hypochromasia 1+; Total Cells Counted 100
== END 2025-08-09 23:59 | disposition home or self-care (01) ==
LOC: LAB 13:06
PROVIDERS: PCP Internal Medicine Adolescent Medicine; Visit Provider Internal Medicine Medical Oncology
DX: D70.9 Neutropenia, unspecified (principal)
CPT/HCPCS: 36415; 85007; 85025

== ENCOUNTER 2025-08-17 10:05 | Outpatient (CLI) | payer MEDICARE, SELFPAY ==
[2025-08-17 10:37] LABS: Hematocrit 41.1 % (37.0-47.0); Hemoglobin 13.0 g/dL (12.2-16.2); Immature Granulocytes % 0.4 %; Mean Corpuscular HGB Conc 31.6 g/dL (31.8-35.4); Mean Corpuscular Hemoglobin 27.3 pg (27.0-31.2); Mean Corpuscular Volume 86.3 fl (81-99); Nucleated Red Blood Cells % 0 %; Platelet Count 347 K/mm3 (142-424); Red Blood Count 4.76 M/mm3 (4.20-5.40); Red Cell Distribution Width-SD 40.3 fL; White Blood Count 17.8 K/mm3 (4.8-10.8)
== END 2025-08-17 23:59 | disposition home or self-care (01) ==
LOC: LAB 10:05
PROVIDERS: PCP Internal Medicine Adolescent Medicine; Visit Provider Internal Medicine Medical Oncology
DX: D70.9 Neutropenia, unspecified (principal)
CPT/HCPCS: 36415; 85025